=== PATIENT | male | born 1940 | race Caucasian/White ===

== ENCOUNTER 2016-12-24 15:17 | Emergency (ER) | payer MEDICARE, BC ==
[~2016-12-24] VITALS: Ht 188 cm; Wt 105.0 kg
[~2016-12-24 15:17] MED LIST: ARIC10TA PO; ASPI81 PO; CALA240T PO; CALC500T42 PO; CARB25TA PO; CELE200C PO; DOCU1CAP39 PO; HYDR30CR2 TOP; LEXA10TA PO; NEXI40CA PO; OMEGCAP2 PO; REST30CA PO; ROSU40 PO; SUCR1TAB PO; TAB-TAB PO; VIAG100T PO
[2016-12-24 15:21] VITALS: BP 135/63; PULSE 45; RESP 15; TEMP 97.8; O2SAT 97
--- NOTE | 2016-12-24 15:58 | PD ---
HPI Chief Complaint: Pain: Acute or Chronic Time Seen by Provider: 15:55 Travel History International Travel<30 days: No Contact w/Intl Traveler<30days: No Traveled to known affect area: No History of Present Illness HPI 76-year-old male presents to the emergency department for evaluation of bilateral hip pain for 1 month. He states that has been worsening over the past month. The left hip is worse than the right hip. He states that he tried again a playmate with an orthopedist, but has not had one for a couple of weeks. He denies any fall or trauma. The patient denies any fevers. He can walk he states, but the pain is worse with walking and movement. His primary care physician is Dr. Yin. He has a PMH of a total knee replacement, kyphoplasty, back fusion, back stimulator, CVA, carotid enterectomy, pneumonia, sepsis. PFSH Past Medical History Hx Anticoagulant Therapy: No (ASA 81 mg po daily) Arthritis: Yes Asthma: No Autoimmune Disease: No Blood Disorders: No Anxiety: No Depression: Yes Heart Rhythm Problems: No Cancer: No Cardiovascular Problems: Yes (CVA,LEFT LEG NEUROPATHY RESIDUAL ) High Cholesterol: Yes Chemotherapy: No Chest Pain: No Congestive Heart Failure: No COPD: No Cerebrovascular Accident: Yes (R carotid arted stenosis repaired 4 years ago) Coronary Artery Disease: Yes Dementia: Yes Diabetes: No Diminished Hearing: No Endocrine: No GERD: Yes Glaucoma: No Genitourinary: No Headaches: Yes Hepatitis: No Hiatal Hernia: No Immune Disorder: No Kidney Stones: Yes Musculoskeletal: Yes Neurologic: Yes (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) Parkinson's Disease: Yes Psychiatric: No Reproductive: No Respiratory: No Integumentary: Yes (HX OF DERMATITIS SINCE SEP 2010) Migraines: Yes Myocardial Infarction: No Pneumonia: Yes Radiation Therapy: No Renal Failure: No Seizures: No Sickle Cell Disease: No Sleep Apnea: No Thyroid Disease: No Ulcer: No Past Surgical History Abdominal Surgery: Yes (APPENDIX WHEN 12 YEARS OLD) AICD: No Appendectomy: Yes Arteriovenous Shunt: No Body Medical Devices: SPINAL CORD IMPLANT Cardiac Surgery: Yes (RIGHT CAROTID ENDARECTOMY) Cholecystectomy: No Ear Surgery: No Endocrine Surgery: No Eye Surgery: Yes (CATARACTS) Genitourinary Surgery: No Gynecologic Surgery: No Insulin Pump: No Joint Replacement: Yes (BILATERAL KNEES -RIGHT PARTIAL KNEE-L TOTAL) Oral Surgery: No Pacemaker: No Thoracic Surgery: No Other Surgery: Yes (BACK STIMULATOR- SPINAL CORD STIMULATOR PLACED IN LEFT BUTTOCKS, LT LEG FX) Social History Alcohol Use: Yes (SOCIALLY) Tobacco Use: No ("CIGAR ONCE IN A WHILE") Substance Use: No Allergies-Medications (Allergen,Severity, Reaction): Coded Allergies: No Known Allergies (Unverified , 12/24/16) Reported Meds & Prescriptions Reported Meds & Active Scripts Active Lortab (Hydrocodone-Acetaminophen) 5-325 Mg Tab 1 Tab PO Q6H PRN Reported Viagra (Sildenafil Citrate) 100 Mg Tab 100 Mg PO DAILY PRN Zenpep (Pancrelipase) 25,000-85,000-136,000 Units Cap 1 Cap PO TIDPC Topamax (Topiramate) 25 Mg Tab 25 Mg PO BID Temazepam 30 Mg Cap 30 Mg PO HS PRN Nexium (Esomeprazole DR) 40 Mg Capdr 40 Mg PO DAILY Movantik (Naloxegol) 25 Mg Tab 25 Mg PO DAILY Maxzide-25 (Triamterene-Hydrochlorothiazide) 37.5-25 Mg Tab 0.5 Tab PO DAILY Lyrica (Pregabalin) 100 Mg Cap 100 Mg PO BID Linzess (Linaclotide) 145 Mcg Cap 145 Mcg PO DAILY Lisinopril 10 Mg Tab 10 Mg PO DAILY Lexapro (Escitalopram Oxalate) 10 Mg Tab 10 Mg PO DAILY Imitrex (Sumatriptan Succinate) 100 Mg Tab 100 Mg PO ONCE PRN If a satisfactory response has not been obtained at 2 hours, a second dose may be administered Cymbalta DR (Duloxetine HCl) 60 Mg Capdr 60 Mg PO DAILY Celebrex (Celecoxib) 200 Mg Cap 200 Mg PO DAILY Carafate (Sucralfate) 1 Gm Tab 1 Gm PO QID On empty stomach Carbidopa-Levodopa 25-100 Mg Tab 1 Tab PO Q8HR Aspirin 81 Mg Tabdr 81 Mg PO DAILY Aricept (Donepezil) 10 Mg Tab 10 Mg PO HS Review of Systems Except as stated in HPI: all other systems reviewed are Neg Physical Exam Narrative GENERAL: Well-nourished, well-developed elderly male patient, afebrile. SKIN: Focused skin assessment warm/dry. No erythema or warmth over bilateral hips. HEAD: Normocephalic. Atraumatic. EYES: No scleral icterus. No injection or drainage. NECK: Supple, trachea midline. No JVD or lymphadenopathy. CARDIOVASCULAR: Regular rhythm without murmurs, gallops, or rubs. Patient is bradycardic. Patient states this is chronic for him. He denies any associated symptoms. Bilateral pedal pulses are 2+. RESPIRATORY: Breath sounds equal bilaterally. No accessory muscle use. Lungs sounds are clear to auscultation. GASTROINTESTINAL: Abdomen soft, non-tender, nondistended. MUSCULOSKELETAL: No cyanosis, or edema. No tenderness to palpation over bilateral hips. He does have flexion and extension of bilateral hips without difficulty. BACK: Nontender without obvious deformity. No CVA tenderness. Data Data Last Documented VS Vital Signs Date Time Temp Pulse Resp B/P Pulse Ox O2 Delivery O2 Flow Rate FiO2 12/24/16 15:21 97.8 45 15 135/63 97 Orders Hip, Uni(Ap&Lat) Wo Ap Pelvis (12/24/16 ) Hip, Uni(Ap&Lat) W Ap Pelvis (12/24/16 ) Acetamin-Hydrocod 325-5 Mg ([place] 5-325 (12/24/16 17:15) MDM Medical Decision Making Medical Screen Exam Complete: Yes Emergency Medical Condition: Yes Medical Record Reviewed: Yes Interpretation(s) Last Impressions Hip and Pelvis X-Ray 12/24/16 0000 Signed Impressions: Service Date/Time: December 16:14 - CONCLUSION: No fracture seen. Mild bilateral degenerative changes in the hips. Boris Yates MD Hip X-Ray 12/24/16 0000 Signed Impressions: Service Date/Time: December 16:14 - CONCLUSION: No acute bony process Kwadwo Luz MD Differential Diagnosis Osteoarthritis versus fracture versus sprain versus unlikely septic arthritis Narrative Course 76-year-old male presents to the emergency department for evaluation of bilateral hip pain for 1 month. Of infection or septic arthritis on exam. X- ray of the right hip, left hip, pelvis are ordered and pending. Patient will be given Lortab for pain. X-ray right hip and left of the pelvis show mild arthritic change, no acute fracture or bony injury. I discussed the findings with the patient and his . He will be discharged with a short-term prescription for Lortab as instructed follow up with orthopedist. The patient verbalizes agreement and understanding to this. The patient was discharged in stable condition with instructions, including return instructions and follow up instructions. Diagnosis Primary Impression: Bilateral hip pain Referrals: Orthopedist call for appointment Patient Instructions: General Instructions, Hip Pain (ED) Additional Instructions: Take Lortab as instructed as needed for pain. Caution this can make you drowsy so do not drive after taking. Follow-up with orthopedist. Return to the emergency department for any acute worsening of symptoms. Med/Other Pt SpecificInfo: Prescription(s) given Scripts Hydrocodone-Acetaminophen (Lortab)5-325 Mg Tab1 Tab PO Q6H PRN (PAIN) #16 TAB Ref 0 Prov:Mohit Brush MD 12/24/16 Disposition: 01 DISCHARGE HOME Condition: Stable Anabelle Villasenor Dec 24, 2016 15:58
[2016-12-24] MEDS ORDERED: CARA1TAB6 PO (16:15)
[2016-12-24] MEDS ORDERED: CYMB60CA PO (16:15)
[2016-12-24] MEDS ORDERED: LEXA10TA PO (16:15)
[2016-12-24] MEDS ORDERED: CARB25TA9 PO (16:15)
[2016-12-24] MEDS ORDERED: TEMA30CA PO (16:15)
[2016-12-24] MEDS ORDERED: CELE200C PO (16:15)
[2016-12-24] MEDS ORDERED: ASPI1TAB69 PO (16:15)
[2016-12-24] MEDS ORDERED: IMIT100T PO (16:15)
[2016-12-24] MEDS ORDERED: LYRI100C PO (16:15)
[2016-12-24] MEDS ORDERED: LISI10TA3 PO (16:15)
[2016-12-24] MEDS ORDERED: TOPA25TA8 PO (16:15)
[2016-12-24] MEDS ORDERED: ZENP PO (16:15)
[2016-12-24] MEDS ORDERED: VIAG100T PO (16:15)
[2016-12-24] MEDS ORDERED: NEXI40CA PO (16:15)
[2016-12-24] MEDS ORDERED: LINA145C PO (16:15)
[2016-12-24] MEDS ORDERED: ARIC10TA PO (16:15)
[2016-12-24] MEDS ORDERED: NALO1TAB2 PO (16:15)
[2016-12-24] MEDS ORDERED: MAXZTAB PO (16:15)
--- NOTE | 2016-12-24 16:31 | RADRPT ---
EXAM DATE/TIME: 12/24/2016 16:14 [facility] COMPARISON: No previous studies available for comparison. INDICATIONS : Bilateral hip pain, no known trauma MEDICAL HISTORY : None. SURGICAL HISTORY : None. ENCOUNTER: Initial ACUITY: 1 month PAIN SCORE: 8/10 LOCATION: Left hip FINDINGS: The hip appears intact without evidence of fracture, dislocation or bony destruction. Very mild arthr itic changes present. The adjacent pelvis is intact. A stimulator apparatus overlies the ipsilateral iliac wing. There is been previous lumbar fusion surgery and apparent kyphoplasty. CONCLUSION: No acute bony process Kwadwo Luz MD on December 24, 2016 at 16:28 Board Certified Radiologist. This report was verified electronically.
--- NOTE | 2016-12-24 16:38 | RADRPT ---
EXAM DATE/TIME: 12/24/2016 16:14 [facility] COMPARISON: No previous studies available for comparison. INDICATIONS : Bilateral hip pain, no known trauma. MEDICAL HISTORY : None. SURGICAL HISTORY : back stimulator ENCOUNTER: Initial ACUITY: 1 month PAIN SCORE: 8/10 LOCATION: Right hip and pelvis FINDINGS: Osseous structures are mildly osteopenic. The bony pelvic ring is grossly intact. The femoral neck has a symmetric appearance between the right side. There is mild degenerative changes in the hip vin nts without significant femoral neck osteophytes. No fracture seen. The visualized arcuate foramina are symmetric. Transpedicular screws in the lower lumbar spine. The metallic medical office secretary superi mposes upon the left iliac wing. CONCLUSION: No fracture seen. Mild bilateral degenerative changes in the hips. Boris Yates MD on December 24, 2016 at 16:35 Board Certified Radiologist. This report was verified electronically.
[2016-12-24] MEDS ORDERED: HYDR-3533 PO (16:49)
[2016-12-24] MEDS ORDERED: ACETAMINOPHEN/HYDROcodone 325 MG/5 MG TAB PO ONE (17:15)
== END 2016-12-24 17:42 | disposition home or self-care (01) ==
LOC: NEPD 15:17
DX: M25.551 Pain in right hip (principal); M25.552 Pain in left hip
CPT/HCPCS: 73502; 99283

== ENCOUNTER 2017-11-11 14:17 | Emergency (ER) | payer MEDICARE ==
[~2017-11-11 14:17] MED LIST changes: +ASPI1TAB69 PO; -ASPI81 PO; -CALA240T PO; -CALC500T42 PO; +CARA1TAB6 PO; -CARB25TA PO; +CARB25TA9 PO; +CYMB60CA PO; -DOCU1CAP39 PO; +HYDR-3533 PO; -HYDR30CR2 TOP; +IMIT100T PO; +LINA145C PO; +LISI10TA3 PO; +LYRI100C PO; +MAXZTAB PO; +NALO1TAB2 PO; -OMEGCAP2 PO; -REST30CA PO; -ROSU40 PO; -SUCR1TAB PO; -TAB-TAB PO; +TEMA30CA PO; +TOPI25 PO; +ZENP PO
[2017-11-11 14:19] VITALS: BP 144/80; PULSE 69; RESP 18; TEMP 97.2; O2SAT 96
--- NOTE | 2017-11-11 14:51 | RADRPT ---
EXAM DATE/TIME: 11/11/2017 14:41 [facility] COMPARISON: No previous studies available for comparison. INDICATIONS : Chest tightness and cough. MEDICAL HISTORY : CVA. Coronary artery disease. Dementia. parkinsons. SURGICAL HISTORY : Appendectomy. Right carotid endarectomy. Spinal cord stimulator. ENCOUNTER: Initial ACUITY: 1 month PAIN SCORE: 0/10 LOCATION: Bilateral chest FINDINGS: The lungs are symmetrically aerated there is a small opacity in the lower lateral left lung will stop both hemidiaphragms well delineated. The heart is normal in size. Tortuosity descending thoracic a radames. The lesion electrodes project over the mid thoracic region. No evidence of pneumothorax. CONCLUSION: Small infiltrate lower lateral left lung. Boris Yates MD on November 11, 2017 at 14:49 Board Certified Radiologist. This report was verified electronically.
[2017-11-11 15:23] LABS: AUTOMATED NEUTROPHIL # 3.4 TH/MM3 (1.8-7.7); BASOPHIL % 0.5 % (0.0-2.0); EOSINOPHIL # 0.2 TH/MM3 (0-0.4); EOSINOPHIL % 2.6 % (0.0-4.0); HEMATOCRIT 43.8 % (39.0-51.0); HEMOGLOBIN 14.9 GM/DL (13.0-17.0); LYMPH % 45.6 % (9.0-44.0); LYMPHOCYTE # 3.8 TH/MM3 (1.0-4.8); MEAN CELL VOLUME 92.4 FL (80.0-100.0); MEAN CORPUSCULAR HEMOGLOBIN 31.4 PG (27.0-34.0); MEAN CORPUSCULAR HGB CONC 33.9 % (32.0-36.0); MEAN PLATELET VOLUME 8.5 FL (7.0-11.0); MONO % 10.9 % (0.0-8.0); MONOCYTE # 0.9 TH/MM3 (0-0.9); NEUT % 40.4 % (16.0-70.0); PLATELET COUNT 184 TH/MM3 (150-450); RED BLOOD COUNT 4.74 MIL/MM3 (4.50-5.90); RED CELL DISTRIBUTION WIDTH 14.7 % (11.6-17.2); WHITE BLOOD COUNT 8.4 TH/MM3 (4.0-11.0)
[2017-11-11 15:46] LABS: BICARBONATE 25.4 MEQ/L (21.0-32.0); CALCIUM 8.3 MG/DL (8.5-10.1); CREATININE 1.23 MG/DL (0.60-1.30)
[2017-11-11] MEDS ORDERED: SODIUM CHLOR 0.9% 1000 ML INJ 1,000 ML IV SCH (16:48)
--- NOTE | 2017-11-11 16:54 | PD ---
HPI Chief Complaint: Respiratory Symptoms Time Seen by Provider: 16:41 Travel History International Travel<30 days: No Contact w/Intl Traveler<30days: No Traveled to known affect area: No History of Present Illness HPI This is a 77-year-old male with history of peripheral neuropathy, Parkinson's disease, vasculitis who presents for evaluation of cough, generalized weakness. He reports that he has had a cough for one month. He was seen by his primary care physician approximately 4 weeks ago and diagnosed with pneumonia. He was put on azithromycin and Levaquin and initially his overall symptoms improved. He had a persistent cough since then and over the past few days he has felt increased weakness and has had worse cough. Associated dyspnea. He had one fall this morning secondary to generalized weakness. Symptoms are moderate, no aggravating or relieving factors. He denies fevers or chills. He denies abdominal pain, nausea or vomiting, diarrhea or constipation. He has no other complaints at this time. PFSH Past Medical History Hx Anticoagulant Therapy: No (ASA 81 mg po daily) Arthritis: Yes Asthma: No Autoimmune Disease: No Blood Disorders: No Anxiety: No Depression: Yes Heart Rhythm Problems: No Cancer: No Cardiovascular Problems: Yes (CVA,LEFT LEG NEUROPATHY RESIDUAL ) High Cholesterol: Yes Chemotherapy: No Chest Pain: No Congestive Heart Failure: No COPD: No Cerebrovascular Accident: Yes (R carotid arted stenosis repaired 4 years ago) Coronary Artery Disease: Yes Dementia: Yes Diabetes: No Diminished Hearing: No Endocrine: No GERD: Yes Glaucoma: No Genitourinary: No Headaches: Yes Hepatitis: No Hiatal Hernia: No Immune Disorder: No Kidney Stones: Yes Musculoskeletal: Yes Neurologic: Yes (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) Parkinson's Disease: Yes Psychiatric: No Reproductive: No Respiratory: No Integumentary: Yes (HX OF DERMATITIS SINCE SEP 2010) Migraines: Yes Myocardial Infarction: No Pneumonia: Yes Radiation Therapy: No Renal Failure: No Seizures: No Sickle Cell Disease: No Sleep Apnea: No Thyroid Disease: No Ulcer: No Past Surgical History Abdominal Surgery: Yes (APPENDIX WHEN 12 YEARS OLD) AICD: No Appendectomy: Yes Arteriovenous Shunt: No Body Medical Devices: SPINAL CORD IMPLANT Cardiac Surgery: Yes (RIGHT CAROTID ENDARECTOMY) Cholecystectomy: No Ear Surgery: No Endocrine Surgery: No Eye Surgery: Yes (CATARACTS) Genitourinary Surgery: No Gynecologic Surgery: No Insulin Pump: No Joint Replacement: Yes (BILATERAL KNEES -RIGHT PARTIAL KNEE-L TOTAL) Oral Surgery: No Pacemaker: No Thoracic Surgery: No Other Surgery: Yes (BACK STIMULATOR- SPINAL CORD STIMULATOR PLACED IN LEFT BUTTOCKS, LT LEG FX) Social History Alcohol Use: No (SOCIALLY) Tobacco Use: No ("CIGAR ONCE IN A WHILE") Substance Use: No Allergies-Medications (Allergen,Severity, Reaction): Coded Allergies: No Known Allergies (Unverified , 12/24/16) Reported Meds & Prescriptions Reported Meds & Active Scripts Active Doxycycline Hyclate 100 Mg Cap 100 Mg PO BID Lortab (Hydrocodone-Acetaminophen) 5-325 Mg Tab 1 Tab PO Q6H PRN Reported Viagra (Sildenafil Citrate) 100 Mg Tab 100 Mg PO DAILY PRN Zenpep (Pancrelipase) 25,000-85,000-136,000 Units Cap 1 Cap PO TIDPC Topamax (Topiramate) 25 Mg Tab 25 Mg PO BID Temazepam 30 Mg Cap 30 Mg PO HS PRN Nexium (Esomeprazole DR) 40 Mg Capdr 40 Mg PO DAILY Movantik (Naloxegol) 25 Mg Tab 25 Mg PO DAILY Maxzide-25 (Triamterene-Hydrochlorothiazide) 37.5-25 Mg Tab 0.5 Tab PO DAILY Lyrica (Pregabalin) 100 Mg Cap 100 Mg PO BID Linzess (Linaclotide) 145 Mcg Cap 145 Mcg PO DAILY Lisinopril 10 Mg Tab 10 Mg PO DAILY Lexapro (Escitalopram Oxalate) 10 Mg Tab 10 Mg PO DAILY Imitrex (Sumatriptan Succinate) 100 Mg Tab 100 Mg PO ONCE PRN If a satisfactory response has not been obtained at 2 hours, a second dose may be administered Cymbalta DR (Duloxetine HCl) 60 Mg Capdr 60 Mg PO DAILY Celebrex (Celecoxib) 200 Mg Cap 200 Mg PO DAILY Carafate (Sucralfate) 1 Gm Tab 1 Gm PO QID On empty stomach Carbidopa-Levodopa 25-100 Mg Tab 1 Tab PO Q8HR Aspirin 81 Mg Tabdr 81 Mg PO DAILY Aricept (Donepezil) 10 Mg Tab 10 Mg PO HS Review of Systems Except as stated in HPI: all other systems reviewed are Neg Physical Exam Narrative GENERAL: Well-developed well-nourished male in no acute distress SKIN: Warm and dry. HEAD: Atraumatic. Normocephalic. EYES: Pupils equal and round. No scleral icterus. No injection or drainage. ENT: No nasal bleeding or discharge. Mucous membranes pink and moist. NECK: Trachea midline. No JVD. CARDIOVASCULAR: Regular rate and rhythm. No murmur appreciated. RESPIRATORY: No accessory muscle use. Diffuse coarse breath sounds noted. GASTROINTESTINAL: Abdomen soft, non-tender, nondistended. Hepatic and splenic margins not palpable. MUSCULOSKELETAL: No obvious deformities. No clubbing. No cyanosis. No edema. NEUROLOGICAL: Awake and alert. No obvious cranial nerve deficits. Motor grossly within normal limits. Normal speech. PSYCHIATRIC: Appropriate mood and affect; insight and judgment normal. Data Data Last Documented VS Vital Signs Date Time Temp Pulse Resp B/P (MAP) Pulse Ox O2 Delivery O2 Flow Rate FiO2 11/11/17 17:34 Room Air 11/11/17 17:17 65 28 194/85 (121) 100 11/11/17 14:19 97.2 Orders Orders Complete Blood Count With Diff (11/11/17 14:31) Basic Metabolic Panel (Bmp) (11/11/17 14:31) Chest, Pa & Lat (11/11/17 14:31) Blood Culture (11/11/17 14:31) Iv Access Insert/Monitor (11/11/17 14:31) Ecg Monitoring (11/11/17 14:31) Oxygen Administration (11/11/17 14:31) Oximetry (11/11/17 14:31) Electrocardiogram (11/11/17 14:31) Influenzae A/B Antigen (11/11/17 14:31) Sodium Chlor 0.9% 1000 Ml Inj (Ns 1000 M (11/11/17 16:48) Albuterol-Ipratropium Neb (Duoneb Neb) (11/11/17 17:00) Ceftriaxone Inj (Rocephin Inj) (11/11/17 17:00) Azithromycin Inj (Zithromax Inj) (11/11/17 17:00) Blood Glucose (11/11/17 17:45) Ed Discharge Order (11/11/17 18:20) Labs Laboratory Tests Test 11/11/17 13:00 White Blood Count 8.4 TH/MM3 Red Blood Count 4.74 MIL/MM3 Hemoglobin 14.9 GM/DL Hematocrit 43.8 % Mean Corpuscular Volume 92.4 FL Mean Corpuscular Hemoglobin 31.4 PG Mean Corpuscular Hemoglobin Concent 33.9 % Red Cell Distribution Width 14.7 % Platelet Count 184 TH/MM3 Mean Platelet Volume 8.5 FL Neutrophils (%) (Auto) 40.4 % Lymphocytes (%) (Auto) 45.6 % Monocytes (%) (Auto) 10.9 % Eosinophils (%) (Auto) 2.6 % Basophils (%) (Auto) 0.5 % Neutrophils # (Auto) 3.4 TH/MM3 Lymphocytes # (Auto) 3.8 TH/MM3 Monocytes # (Auto) 0.9 TH/MM3 Eosinophils # (Auto) 0.2 TH/MM3 Basophils # (Auto) 0.0 TH/MM3 CBC Comment DIFF FINAL Differential Comment Blood Urea Nitrogen 17 MG/DL Creatinine 1.23 MG/DL Random Glucose 59 MG/DL Calcium Level 8.3 MG/DL Sodium Level 141 MEQ/L Potassium Level 4.3 MEQ/L Chloride Level 108 MEQ/L Carbon Dioxide Level 25.4 MEQ/L Anion Gap 8 MEQ/L Estimat Glomerular Filtration Rate 57 ML/MIN MDM Medical Decision Making Medical Screen Exam Complete: Yes Emergency Medical Condition: Yes Medical Record Reviewed: Yes Differential Diagnosis Pneumonia, influenza, bronchitis, dehydration, electrolyte abnormality Narrative Course Chest x-ray obtained in triage reveals a small left lower lobe infiltrate. He was given IV fluids, azithromycin, Rocephin here. The patient does have coarse breath sounds and he was given DuoNeb treatment. She was mildly hypoglycemic so he was given Gatorade and crackers. Upon recheck he feels significantly improved. His lab work is otherwise reassuring.His lab work is otherwise reassuring. He does report recent outpatient treatment for pneumonia however this was almost 1 month ago as an outpatient. Therefore I offered treatment the patient overnight for observation however he would prefer to try outpatient treatment. This seems reasonable given his normal labs will be given a prescription for doxycycline. Recommended recheck by his primary care physician in 3-4 days and return for any new or worsening symptoms. He does have albuterol nebulizing solution at home that he can use as needed help with his breathing. He is stable for discharge. Diagnosis Primary Impression: CAP (community acquired pneumonia) Additional Instructions: Medication as prescribed. Follow-up with primary care physician in 3-4 days for recheck. Return for any acutely new or worsening symptoms. Med/Other Pt SpecificInfo: Prescription(s) given Scripts Doxycycline Hyclate (Doxycycline Hyclate) 100 Mg Cap 100 MG PO BID for Infection, #20 CAP 0 Refills Prov: Eduard Thomas MD 11/11/17 Disposition: 01 DISCHARGE HOME Condition: Stable Amador Diop Nov 11, 2017 16:54
[2017-11-11] MEDS ORDERED: cefTRIAXone INJ 2,000 MG in SODIUM CHLORIDE 0.9% INJ 100 ML IV ONE (17:00)
[2017-11-11] MEDS ORDERED: AZITHROMYCIN INJ 500 MG in SODIUM CHLOR 0.9% 250 ML INJ 250 ML IV ONE (17:00)
[2017-11-11] MEDS: RESP: ALBUTEROL 2.5 MG/IPRATROPIUM 0.5 MG NEB (SCH) INH ×2 (17:06→17:07)
[2017-11-11 17:17] VITALS: BP 194/85; PULSE 65; RESP 28; O2SAT 100
[2017-11-11] MEDS ORDERED: DOXY100C PO (18:19)
[2017-11-11 19:04] VITALS: BP 169/78; PULSE 65; RESP 15; O2SAT 96
--- NOTE | 2017-11-12 14:41 | EKG ---
Date Performed: 11/11/2017 Time Performed: 14:51:20 PTAGE: 77 years EKG: Sinus rhythm WITH FREQUENT SUPRAVENTRICULAR PREMATURE COMPLEXES MARKED LEFT AXIS DEVIATION PATTERN CONSISTENT WIT H PULMONARY DISEASE MODERATE INTRAVENTRICULAR CONDUCTION DELAY MODERATE VOLTAGE CRITERIA FOR LVH, CON ASSOCIATION EXECUTIVE NORMAL VARIANT NONSPECIFIC ST & T-WAVE ABNORMALITY ABNORMAL ECG PREVIOUS TRACING : 12/14/2015 16.40 Since the prior tracing, there has been no significant daniels DOCTOR: Devi Bird Interpretating Date/Time 11/12/2017 14:37:01
== END 2017-11-11 19:13 | disposition home or self-care (01) ==
LOC: NEPC 14:17
DX: J18.9 Pneumonia, unspecified organism (principal); G20 Parkinson's disease; K21.9 Gastro-esophageal reflux disease without esophagitis; I25.10 Atherosclerotic heart disease of native coronary artery without angina pectoris
CPT/HCPCS: 71046; 80048; 85025; 87040; 87804; 93005; 94640; 94664; 96365; 96367; 99285; J0456; J0696; J7030; J7050

== ENCOUNTER 2017-11-14 12:05 | Inpatient (IN) | payer MEDICARE ==
[~2017-11-14] VITALS: Ht 188 cm; Wt 117.8 kg
[2017-11-14] VITALS (8 sets, daily range): BP systolic 129–160; BP diastolic 69–79; PULSE 69–98; RESP 16–20; TEMP 97.3–97.9; O2SAT 96–99
[~2017-11-14 12:05] MED LIST changes: +DOXY100C PO
--- NOTE | 2017-11-14 12:27 | PD ---
HPI Chief Complaint: Respiratory Symptoms Time Seen by Provider: 12:25 Travel History International Travel<30 days: No Contact w/Intl Traveler<30days: No Traveled to known affect area: No History of Present Illness HPI 77-year-old male with PMH of CVA, HTN, GERD, chronic pancreatitis, recent history of CAP presents to the ED for evaluation of worsening cough, shortness of breath, breathing difficulties. Patient denies fevers, chills, chest pain, palpitations, abdominal pain, nausea, vomiting. He endorses compliance with doxycycline. He states that prior to the doxycycline he completed a course of Levaquin and a Z-Saad. He endorses occasional cigar smoking. He states that he has a follow-up appointment with his primary care provider tomorrow. Last albuterol treatment overnight. PFSH Past Medical History Hx Anticoagulant Therapy: No (ASA 81 mg po daily) Arthritis: Yes Asthma: No Autoimmune Disease: No Blood Disorders: No Anxiety: No Depression: Yes Heart Rhythm Problems: No Cancer: No Cardiovascular Problems: Yes (CVA,LEFT LEG NEUROPATHY RESIDUAL ) High Cholesterol: Yes Chemotherapy: No Chest Pain: No Congestive Heart Failure: No COPD: No Cerebrovascular Accident: Yes (R carotid arted stenosis repaired 4 years ago) Coronary Artery Disease: Yes Dementia: Yes Diabetes: No Diminished Hearing: No Endocrine: No GERD: Yes Glaucoma: No Genitourinary: No Headaches: Yes Hepatitis: No Hiatal Hernia: No Immune Disorder: No Kidney Stones: Yes Musculoskeletal: Yes Neurologic: Yes (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) Parkinson's Disease: Yes Psychiatric: No Reproductive: No Respiratory: No Integumentary: Yes (HX OF DERMATITIS SINCE SEP 2010) Immunizations Current: Yes (FLU SHOT 2005.) Migraines: Yes Myocardial Infarction: No Pneumonia: Yes Radiation Therapy: No Renal Failure: No Seizures: No Sickle Cell Disease: No Sleep Apnea: No Thyroid Disease: No Ulcer: No Past Surgical History Abdominal Surgery: Yes (APPENDIX WHEN 12 YEARS OLD) AICD: No Appendectomy: Yes (12 years old of age ) Arteriovenous Shunt: No Body Medical Devices: SPINAL CORD IMPLANT Cardiac Surgery: Yes (RIGHT CAROTID ENDARECTOMY) Cholecystectomy: No Ear Surgery: No Endocrine Surgery: No Eye Surgery: Yes (CATARACTS) Genitourinary Surgery: No Gynecologic Surgery: No Insulin Pump: No Joint Replacement: Yes (BILATERAL KNEES -RIGHT PARTIAL KNEE-L TOTAL) Oral Surgery: No Pacemaker: No Thoracic Surgery: No Other Surgery: Yes (BACK STIMULATOR- SPINAL CORD STIMULATOR PLACED IN LEFT BUTTOCKS, LT LEG FX) Social History Alcohol Use: Yes (SOCIALLY) Tobacco Use: No ("CIGAR ONCE IN A WHILE") Substance Use: No Allergies-Medications (Allergen,Severity, Reaction): Coded Allergies: No Known Allergies (Unverified Allergy, Unknown, 11/14/17) Reported Meds & Prescriptions Reported Meds & Active Scripts Active Doxycycline Hyclate 100 Mg Cap 100 Mg PO BID Lortab (Hydrocodone-Acetaminophen) 5-325 Mg Tab 1 Tab PO Q6H PRN Reported Viagra (Sildenafil Citrate) 100 Mg Tab 100 Mg PO DAILY PRN Zenpep (Pancrelipase) 25,000-85,000-136,000 Units Cap 1 Cap PO TIDPC Topamax (Topiramate) 25 Mg Tab 25 Mg PO BID Temazepam 30 Mg Cap 30 Mg PO HS PRN Nexium (Esomeprazole DR) 40 Mg Capdr 40 Mg PO DAILY Movantik (Naloxegol) 25 Mg Tab 25 Mg PO DAILY Maxzide-25 (Triamterene-Hydrochlorothiazide) 37.5-25 Mg Tab 0.5 Tab PO DAILY Lyrica (Pregabalin) 100 Mg Cap 100 Mg PO BID Linzess (Linaclotide) 145 Mcg Cap 145 Mcg PO DAILY Lisinopril 10 Mg Tab 10 Mg PO DAILY Lexapro (Escitalopram Oxalate) 10 Mg Tab 10 Mg PO DAILY Imitrex (Sumatriptan Succinate) 100 Mg Tab 100 Mg PO ONCE PRN If a satisfactory response has not been obtained at 2 hours, a second dose may be administered Cymbalta DR (Duloxetine HCl) 60 Mg Capdr 60 Mg PO DAILY Celebrex (Celecoxib) 200 Mg Cap 200 Mg PO DAILY Carafate (Sucralfate) 1 Gm Tab 1 Gm PO QID On empty stomach Carbidopa-Levodopa 25-100 Mg Tab 1 Tab PO Q8HR Aspirin 81 Mg Tabdr 81 Mg PO DAILY Aricept (Donepezil) 10 Mg Tab 10 Mg PO HS Review of Systems Except as stated in HPI: all other systems reviewed are Neg Physical Exam Narrative GENERAL: Well-nourished, well-developed obese white male in no acute distress. SKIN: Focused skin assessment warm/dry. HEAD: Normocephalic. EYES: No scleral icterus. No injection or drainage. NECK: Supple, trachea midline. No JVD or lymphadenopathy. CARDIOVASCULAR: Regular rate and rhythm without murmurs, gallops, or rubs. RESPIRATORY: Breath sounds crackles and rales bilaterally. Wet sounding cough. No accessory muscle use. GASTROINTESTINAL: Abdomen soft, non-tender, nondistended. MUSCULOSKELETAL: No cyanosis, or edema. BACK: Nontender without obvious deformity. No CVA tenderness. Data Data Last Documented VS Vital Signs Date Time Temp Pulse Resp B/P (MAP) Pulse Ox O2 Delivery O2 Flow Rate FiO2 11/14/17 15:18 69 18 160/69 (99) 99 Nasal Cannula 2.00 11/14/17 12:06 97.9 Orders Orders Electrocardiogram (11/14/17 12:18) Ckmb (Isoenzyme) Profile (11/14/17 12:18) Complete Blood Count With Diff (11/14/17 12:18) Comprehensive Metabolic Panel (11/14/17 12:18) Magnesium (Mg) (11/14/17 12:18) Prothrombin Time / Inr (Pt) (11/14/17 12:18) Act Partial Throm Time (Ptt) (11/14/17 12:18) Troponin I (11/14/17 12:18) Ecg Monitoring (11/14/17 12:18) Iv Access Insert/Monitor (11/14/17 12:18) Oximetry (11/14/17 12:18) Oxygen Administration (11/14/17 12:18) Sodium Chloride 0.9% Flush (Ns Flush) (11/14/17 12:30) Ct Pulmonary Angiogram (11/14/17 12:23) Methylprednisolone So Succ Inj (Solumedr (11/14/17 12:30) Albuterol-Ipratropium Neb (Duoneb Neb) (11/14/17 12:30) CKMB (11/14/17 12:33) CKMB% (11/14/17 12:33) Iohexol 350 Inj (Omnipaque 350 Inj) (11/14/17 14:20) Blood Culture (11/14/17 14:53) Vancomycin Inj (Vancomycin Inj) (11/14/17 15:00) Piperacil-Tazo 4.5 Gm Premix (Zosyn 4.5 (11/14/17 15:00) Admit Order (Ed Use Only) (11/14/17 15:34) Labs Laboratory Tests Test 11/14/17 12:33 White Blood Count 6.7 TH/MM3 Red Blood Count 4.58 MIL/MM3 Hemoglobin 14.3 GM/DL Hematocrit 42.1 % Mean Corpuscular Volume 91.9 FL Mean Corpuscular Hemoglobin 31.2 PG Mean Corpuscular Hemoglobin Concent 34.0 % Red Cell Distribution Width 15.0 % Platelet Count 177 TH/MM3 Mean Platelet Volume 8.5 FL Neutrophils (%) (Auto) 63.8 % Lymphocytes (%) (Auto) 24.6 % Monocytes (%) (Auto) 8.0 % Eosinophils (%) (Auto) 2.8 % Basophils (%) (Auto) 0.8 % Neutrophils # (Auto) 4.3 TH/MM3 Lymphocytes # (Auto) 1.6 TH/MM3 Monocytes # (Auto) 0.5 TH/MM3 Eosinophils # (Auto) 0.2 TH/MM3 Basophils # (Auto) 0.1 TH/MM3 CBC Comment DIFF FINAL Differential Comment Prothrombin Time 11.4 SEC Prothromb Time International Ratio 1.1 RATIO Activated Partial Thromboplast Time 28.0 SEC Blood Urea Nitrogen 17 MG/DL Creatinine 1.21 MG/DL Random Glucose 122 MG/DL Total Protein 7.0 GM/DL Albumin 3.9 GM/DL Calcium Level 8.1 MG/DL Magnesium Level 1.7 MG/DL Alkaline Phosphatase 96 U/L Aspartate Amino Transf (AST/SGOT) 19 U/L Alanine Aminotransferase (ALT/SGPT) 9 U/L Total Bilirubin 0.5 MG/DL Sodium Level 140 MEQ/L Potassium Level 4.4 MEQ/L Chloride Level 110 MEQ/L Carbon Dioxide Level 22.9 MEQ/L Anion Gap 7 MEQ/L Estimat Glomerular Filtration Rate 58 ML/MIN Total Creatine Kinase 149 U/L Creatine Kinase MB 1.6 NG/ML Troponin I LESS THAN 0.02 NG/ML MDM Medical Decision Making Medical Screen Exam Complete: Yes Emergency Medical Condition: Yes Differential Diagnosis failed outpatient treatment versus PNA versus CAP versus other Narrative Course 77-year-old male with recent history of CAP presents to the ED for evaluation of worsening cough, shortness of breath, breathing difficulties. He states that he completed a course of Levaquin, a Z-Pack and is currently on doxycycline. He endorses occasional cigar smoking. Last albuterol treatment overnight. Patient afebrile, pulse 98, respiratory rate 16, 96% O2 on room air on presentation. On exam the patient is ill-appearing. Diffuse crackles and rales in bilateral lungs. Exam otherwise unremarkable. IV was established. Patient was administered IV Solumedrol, Duo nebs 3. 11/14/17 12:33 Total Protein 7.0, Albumin 3.9, Calcium Level 8.1 L, Magnesium Level 1.7, Alkaline Phosphatase 96, Aspartate Amino Transf (AST/SGOT) 19, Alanine Aminotransferase (ALT/SGPT) 9 L, Total Bilirubin 0.5 CT pulmonary angiogram: No evidence of PE. Patchy parenchymal infiltrates in both lung bases, left greater than right. Compensated cardiomegaly allergy read. Patient has failed outpatient treatment for community-acquired pneumonia. Blood cultures were drawn. Patient was administered IV vancomycin and Zosyn. I discussed the results of the workup with the patient and his . They are agreeable to admission. I spoke with who agrees to accept the patient to the medicine service. Please see medicine notes for disposition. Minda Rios Nov 14, 2017 12:27
[2017-11-14] MEDS ORDERED: methylPREDNISolone SOD SUCC 125 MG/2 ML VIAL IV PUSH ONE (12:30)
[2017-11-14] MEDS ORDERED: SODIUM CHLORIDE 0.9% FLUSH 10 ML FLUSH IVF PRN (12:30)
[2017-11-14] MEDS: RESP: ALBUTEROL 2.5 MG/IPRATROPIUM 0.5 MG NEB (SCH) INH (12:39)
[2017-11-14 12:47] LABS: AUTOMATED NEUTROPHIL # 4.3 TH/MM3 (1.8-7.7); BASOPHIL # 0.1 TH/MM3 (0-0.2); BASOPHIL % 0.8 % (0.0-2.0); EOSINOPHIL # 0.2 TH/MM3 (0-0.4); EOSINOPHIL % 2.8 % (0.0-4.0); HEMATOCRIT 42.1 % (39.0-51.0); HEMOGLOBIN 14.3 GM/DL (13.0-17.0); LYMPH % 24.6 % (9.0-44.0); LYMPHOCYTE # 1.6 TH/MM3 (1.0-4.8); MEAN CELL VOLUME 91.9 FL (80.0-100.0); MEAN CORPUSCULAR HEMOGLOBIN 31.2 PG (27.0-34.0); MEAN PLATELET VOLUME 8.5 FL (7.0-11.0); MONOCYTE # 0.5 TH/MM3 (0-0.9); NEUT % 63.8 % (16.0-70.0); PLATELET COUNT 177 TH/MM3 (150-450); RED BLOOD COUNT 4.58 MIL/MM3 (4.50-5.90); WHITE BLOOD COUNT 6.7 TH/MM3 (4.0-11.0)
[2017-11-14 12:57] LABS: INTERNATIONAL NORMALIZED RATIO 1.1 RATIO; PROTHROMBIN TIME - PATIENT 11.4 SEC (9.8-11.6)
[2017-11-14 13:09] LABS: ALBUMIN 3.9 GM/DL (3.4-5.0); AST (GOT) 19 U/L (15-37); BICARBONATE 22.9 MEQ/L (21.0-32.0); BLOOD UREA NITROGEN 17 MG/DL (7-18); CALCIUM 8.1 MG/DL (8.5-10.1); CHLORIDE 110 MEQ/L (98-107); CREATININE 1.21 MG/DL (0.60-1.30); GLOMERULAR FILTRATION RATE 58 ML/MIN (>89); GLUCOSE,RANDOM 122 MG/DL (74-106); MAGNESIUM 1.7 MG/DL (1.5-2.5); SODIUM (NA) 140 MEQ/L (136-145)
[2017-11-14 13:13] LABS: ALKALINE PHOSPHATASE 96 U/L (45-117); ALT (GPT) 9 U/L (12-78); TOTAL BILIRUBIN ADULT 0.5 MG/DL (0.2-1.0); TROPONIN I LESS THAN 0.02 NG/ML (0.02-0.05)
[2017-11-14] MEDS ORDERED: IOHEXOL 350 MG/ML 10 ML VIAL (for RAD DIAG) IVCONTRAST ONE (14:20)
--- NOTE | 2017-11-14 14:50 | RADRPT ---
EXAM DATE/TIME: 11/14/2017 14:21 [facility] COMPARISON: No previous studies available for comparison. INDICATIONS : Shortness of breath. IV CONTRAST: 70 cc Omnipaque 350 (iohexol) IV RADIATION DOSE: 10.83 CTDIvol (mGy) MEDICAL HISTORY : Stroke. Parkinsons. Gastroesophageal reflux disease. SURGICAL HISTORY : Carotid endarterectomy. Appendectomy. ENCOUNTER: Initial ACUITY: 1 day PAIN SCALE: 0/10 LOCATION: Bilateral chest TECHNIQUE: Volumetric scanning of the chest was performed using a pulmonary embolism protocol MIP images were re constructed. Using automated exposure control and adjustment of the mA and/or kV according to patien t size, radiation dose was kept as low as reasonably achievable to obtain optimal diagnostic quality images. DICOM format image data is available electronically for review and comparison. Follow-up recommendations for detected pulmonary nodules are based at a minimum on nodule size and pa tient risk factors according to Fleischner Society Guidelines. FINDINGS: PULMONARY ARTERIES: No filling defects are seen in the pulmonary arteries through the segmental level. LUNGS: There are patchy focal infiltrates in both lung bases, left greater than right. PLEURAE: There is no pleural thickening or pleural effusion. MEDIASTINUM: There is good visualization of the great vessels of the middle mediastinum. No evidence of mediastin al or hilar adenopathy/mass. The heart size is enlarged. MUSCULOSKELETAL: Within normal limits for patient age. MISCELLANEOUS: The visualized upper abdominal organs demonstrate no acute abnormality. CONCLUSION: 1. No evidence of pulmonary embolism. 2. Patchy parenchymal infiltrates in both lung bases, left greater than right. 3. Compensated cardiomegaly. Maksim Scanlon MD on November 14, 2017 at 14:47 Board Certified Radiologist. This report was verified electronically.
[2017-11-14] MEDS ORDERED: LEVOFLOXACIN 750 MG PREMIX INJ 150 ML IV ONE (15:00)
[2017-11-14] MEDS ORDERED: PIPERACIL-TAZO 4.5 GM PREMIX 100 ML IV ONE (15:00)
[2017-11-14] MEDS ORDERED: VANCOMYCIN INJ 1,000 MG in SODIUM CHLOR 0.9% 250 ML INJ 250 ML IV ONE (15:00)
[2017-11-14] MEDS ORDERED: SILDENAFIL 100 MG PO PRN (16:00)
[2017-11-14] MEDS ORDERED: ACETAMINOPHEN/HYDROcodone 325 MG/5 MG TAB PO PRN (16:00)
[2017-11-14] MEDS ORDERED: SUMAtriptan SUCCINATE 50 MG TAB PO PRN ×2 (16:00→20:15)
[2017-11-14] MEDS ORDERED: NALOXONE HCL 0.4 MG/ML AMP IV PUSH PRN (16:15)
[2017-11-14] MEDS ORDERED: SENNOSIDES 8.6 MG TAB PO PRN (16:15)
[2017-11-14] MEDS ORDERED: SODIUM CHLORIDE 0.9% FLUSH 10 ML FLUSH IV FLUSH PRN (16:15)
[2017-11-14] MEDS ORDERED: ACETAMINOPHEN 325 MG TAB PO PRN (16:15)
[2017-11-14] MEDS ORDERED: VANCOMYCIN INJ 1,000 MG in SODIUM CHLOR 0.9% 250 ML INJ 250 ML IV SCH (16:15)
[2017-11-14] MEDS ORDERED: LACTULOSE SYRUP 20 GM/30 ML CUP PO PRN (16:15)
[2017-11-14] MEDS ORDERED: Vancomycin Consult Pharmacy 1 EA OTHER SCH (16:15)
[2017-11-14] MEDS ORDERED: ONDANSETRON HCL 4 MG/2 ML VIAL IVP PRN (16:15)
[2017-11-14] MEDS ORDERED: BISACODYL 10 MG SUPP RECTAL PRN (16:15)
[2017-11-14] MEDS ORDERED: MAGNESIUM HYDROXIDE SUSP 30 ML CUP PO PRN (16:15)
--- NOTE | 2017-11-14 16:36 | HHI.HP ---
HPI Service [facility] Primary Care Physician Non-Staff Admission Diagnosis failed outpatient treatment CAP Diagnoses: Chief Complaint: pneumonia worsening failed treatment as OP Travel History International Travel<30 Days: No Contact w/Intl Traveler <30 Da: No Traveled to Known Affected Are: No History of Present Illness 75 yrs old man with a PMHx of Monoclonal gammopathy, DGD, Hyperlipidemia, CVA, chronic pancreatitis. GERD, came to the ED for further evaluation. Patient with recent history of CAP presents for further evaluation of worsening cough, shortness of breath, breathing difficulties. Patient denies fevers, chills, chest pain, palpitations, abdominal pain, nausea, vomiting. He endorses compliance with doxycycline. He states that prior to the doxycycline he completed a course of Levaquin and a Z-Saad. He endorses occasional cigar smoking. He states that he has a follow-up appointment with his primary care provider tomorrow. Last albuterol treatment overnight. The patient is also on chronic use of prednisone due to vasculitis he follows with rheumatology as outpatient. Review of Systems Except as stated in HPI: all other systems reviewed are Neg Past Family Social History Past Medical History Depression. Gastroesophageal reflux disease. Memory deficit. Migraine headaches. Hyperlipidemia. Erectile dysfunction. Allergic rhinitis. History of cerebrovascular accident in 2009 with very, very minimal left lower extremity weakness. History of hypertension history of chronic rash. History of osteomyelitis in 1965 requiring left lower leg surgery. Chronic LBP Past Surgical History Lateral knee surgery Back fusion surgery Carotid artery surgery Nerve stimulator Reported Medications Reported Meds & Active Scripts Active Doxycycline Hyclate 100 Mg Cap 100 Mg PO BID Lortab (Hydrocodone-Acetaminophen) 5-325 Mg Tab 1 Tab PO Q6H PRN Reported Viagra (Sildenafil Citrate) 100 Mg Tab 100 Mg PO DAILY PRN Zenpep (Pancrelipase) 25,000-85,000-136,000 Units Cap 1 Cap PO TIDPC Topamax (Topiramate) 25 Mg Tab 25 Mg PO BID Temazepam 30 Mg Cap 30 Mg PO HS PRN Nexium (Esomeprazole DR) 40 Mg Capdr 40 Mg PO DAILY Movantik (Naloxegol) 25 Mg Tab 25 Mg PO DAILY Maxzide-25 (Triamterene-Hydrochlorothiazide) 37.5-25 Mg Tab 0.5 Tab PO DAILY Lyrica (Pregabalin) 100 Mg Cap 100 Mg PO BID Linzess (Linaclotide) 145 Mcg Cap 145 Mcg PO DAILY Lisinopril 10 Mg Tab 10 Mg PO DAILY Lexapro (Escitalopram Oxalate) 10 Mg Tab 10 Mg PO DAILY Imitrex (Sumatriptan Succinate) 100 Mg Tab 100 Mg PO ONCE PRN If a satisfactory response has not been obtained at 2 hours, a second dose may be administered Cymbalta DR (Duloxetine HCl) 60 Mg Capdr 60 Mg PO DAILY Celebrex (Celecoxib) 200 Mg Cap 200 Mg PO DAILY Carafate (Sucralfate) 1 Gm Tab 1 Gm PO QID On empty stomach Carbidopa-Levodopa 25-100 Mg Tab 1 Tab PO Q8HR Aspirin 81 Mg Tabdr 81 Mg PO DAILY Aricept (Donepezil) 10 Mg Tab 10 Mg PO HS Allergies: Coded Allergies: No Known Allergies (Verified Allergy, Unknown, 11/14/17) Family History Brother aids drug use Fatherat 89 ya of COPD smoker Mother at 92 ya of [place] Social History Tobacco cigars No illicit drug use or alcohol use Physical Exam Vital Signs Vital Signs Date Time Temp Pulse Resp B/P (MAP) Pulse Ox O2 Delivery O2 Flow Rate FiO2 11/14/17 15:18 69 18 160/69 (99) 99 Nasal Cannula 2.00 11/14/17 12:44 97 Nasal Cannula 2.00 11/14/17 12:31 71 18 97 Nasal Cannula 2.00 11/14/17 12:30 97 Nasal Cannula 2.00 11/14/17 12:29 97 Nasal Cannula 2.00 11/14/17 12:06 97.9 98 16 132/75 (94) 96 Physical Exam GENERAL: This is a very pleasant male, well-nourished, well-developed patient, in some distress due to shortness of breath. SKIN: Old healing wound with scab on posterior right lower leg. Cool and dry. HEAD: Atraumatic. Normocephalic. No temporal or scalp tenderness. EYES: Pupils equal round and reactive. Extraocular motions intact. No scleral icterus. No injection or drainage. ENT: Nose without bleeding, purulent drainage or septal hematoma. Throat without erythema, tonsillar hypertrophy or exudate. Uvula midline. Airway patent. NECK: Trachea midline. No JVD or lymphadenopathy. Supple, nontender, no meningeal signs. CARDIOVASCULAR: Regular rate and rhythm without murmurs, gallops, or rubs. RESPIRATORY: Shortness of breath, on nasal cannula. Wheezing scattered decreased breath sound, bronchial sounds. No accessory muscle use. GASTROINTESTINAL: Abdomen soft, non-tender, nondistended. No hepato-splenomegaly , or palpable masses. No guarding. MUSCULOSKELETAL: Extremities without clubbing, cyanosis, or edema. No joint tenderness, effusion, or edema noted. No calf tenderness. Negative Homans sign bilaterally. NEUROLOGICAL: Awake and alert. Cranial nerves II through XII intact. Motor and sensory grossly within normal limits. Five out of 5 muscle strength in all muscle groups. Normal speech. Laboratory Laboratory Tests Test 11/14/17 12:33 White Blood Count 6.7 Red Blood Count 4.58 Hemoglobin 14.3 Hematocrit 42.1 Mean Corpuscular Volume 91.9 Mean Corpuscular Hemoglobin 31.2 Mean Corpuscular Hemoglobin Concent 34.0 Red Cell Distribution Width 15.0 Platelet Count 177 Mean Platelet Volume 8.5 Neutrophils (%) (Auto) 63.8 Lymphocytes (%) (Auto) 24.6 Monocytes (%) (Auto) 8.0 Eosinophils (%) (Auto) 2.8 Basophils (%) (Auto) 0.8 Neutrophils # (Auto) 4.3 Lymphocytes # (Auto) 1.6 Monocytes # (Auto) 0.5 Eosinophils # (Auto) 0.2 Basophils # (Auto) 0.1 CBC Comment DIFF FINAL Differential Comment Prothrombin Time 11.4 Prothromb Time International Ratio 1.1 Activated Partial Thromboplast Time 28.0 Blood Urea Nitrogen 17 Creatinine 1.21 Random Glucose 122 Total Protein 7.0 Albumin 3.9 Calcium Level 8.1 Magnesium Level 1.7 Alkaline Phosphatase 96 Aspartate Amino Transf (AST/SGOT) 19 Alanine Aminotransferase (ALT/SGPT) 9 Total Bilirubin 0.5 Sodium Level 140 Potassium Level 4.4 Chloride Level 110 Carbon Dioxide Level 22.9 Anion Gap 7 Estimat Glomerular Filtration Rate 58 Total Creatine Kinase 149 Creatine Kinase MB 1.6 Troponin I LESS THAN 0.02 Date/Time Source Procedure Growth Status 11/14/17 15:00 Blood Line Aerobic Blood Culture Pending Received 11/14/17 15:00 Blood Line Anaerobic Blood Culture Pending Received Result Diagram: 11/14/17 1233 11/14/17 1233 Caprini VTE Risk Assessment Caprini VTE Risk Assessment: Mod/High Risk (score >= 2) Caprini Risk Assessment Model Point Value = 1 Point Value = 2 Point Value = 3 Point Value = 5 Age 41-60 Minor surgery BMI > 25 kg/m2 Swollen legs Varicose veins or History of unexplained or recurrent spontaneous Oral contraceptives or hormone replacement Sepsis (< 1 month) Serious lung disease, including pneumonia (< 1 month) Abnormal pulmonary function Acute myocardial infarction Congestive heart failure (< 1 month) History of inflammatory bowel disease Medical patient at bed rest Age 61-74 Arthroscopic surgery Major open surgery (> 45 min) Laparoscopic surgery (> 45 min) Malignancy Confined to bed (> 72 hours) Immobilizing plaster cast Central venous access Age >= 75 History of VTE Family history of VTE Factor V Leiden Prothrombin [id number] Lupus anticoagulant Anticardiolipin antibodies Elevated serum homocysteine Heparin-induced thrombocytopenia Other congenital or acquired thrombophilia Stroke (< 1 month) Elective arthroplasty Hip, pelvis, or leg fracture Acute spinal cord injury (< 1 month) Prophylaxis Regimen Total Risk Factor Score Risk Level Prophylaxis Regimen 0-1 Low Early ambulation 2 Moderate Order ONE of the following: *Sequential Compression Device (SCD) *Heparin 5000 units SQ BID 3-4 Higher Order ONE of the following medications: *Heparin 5000 units SQ TID *Enoxaparin/Lovenox 40 mg SQ daily (WT < 150 kg, CrCl > 30 mL/min) *Enoxaparin/Lovenox 30 mg SQ daily (WT < 150 kg, CrCl > 10-29 mL/min) *Enoxaparin/Lovenox 30 mg SQ BID (WT < 150 kg, CrCl > 30 mL/min) AND/OR *Sequential Compression Device (SCD) 5 or more Highest Order ONE of the following medications: *Heparin 5000 units SQ TID (Preferred with Epidurals) *Enoxaparin/Lovenox 40 mg SQ daily (WT < 150 kg, CrCl > 30 mL/min) *Enoxaparin/Lovenox 30 mg SQ daily (WT < 150 kg, CrCl > 10-29 mL/min) *Enoxaparin/Lovenox 30 mg SQ BID (WT < 150 kg, CrCl > 30 mL/min) AND *Sequential Compression Device (SCD) Assessment and Plan Assessment and Plan Bilateral PNA outpatient failed treatment, prior recent hospitalization Immunocompromised patient is on chronic prednisone use due to vasculitis, 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 Patchy parenchymal infiltrates in both lung bases, left greater than right. Compensated cardiomegaly allergy read. Start zosyn and vanco IV Blood cultures obtained in the ED, monitor and deescalate abx Duonebs scheduled and as need O2 supplement keep O2 sat > 94% Solumedrol taper steroids as tolerated E Z-Saad, incentive spirometry Consult infectious disease for evaluation as failed outpatient treatment and also patient is immunocompromised Other chronic medical conditions at baseline: Resume home medications as appropriate GI prophylaxis: PPI DVT prophylaxis: lovenox/Teds/SCDs Discussed Condition With pt, nurse, ED physician Physician Certification 2 Midnight Certification Type: Admission for Inpatient Services Order for Inpatient Services The services are ordered in accordance with Medicare regulations or non- Medicare payer requirements, as applicable. In the case of services not specified as inpatient-only, they are appropriately provided as inpatient services in accordance with the 2-midnight benchmark. Estimated LOS (days): 3 days is the estimated time the patient will need to remain in the hospital, assuming treatment plan goals are met and no additional complications. Post-Hospital Plan: Ana Lilia Brewster MD Nov 14, 2017 16:36
[2017-11-14] MEDS ORDERED: VANCOMYCIN INJ 750 MG in SODIUM CHLOR 0.9% 250 ML INJ 250 ML IV ONE (18:00)
[2017-11-14] MEDS: SODIUM CHLOR 0.9% 1000 ML INJ 1,000 ML IV SCH (18:11)
[2017-11-14] MEDS: LIPASE/PROTEASE/AMYLASE (24,000/76,000/120,000) CAP PO SCH (18:11)
[2017-11-14] MEDS: SUCRALFATE 1 GM TAB PO SCH ×2 (18:12→21:49)
[2017-11-14] MEDS: ENOXAPARIN SODIUM 40 MG/0.4 ML SYRINGE SQ SCH (18:12)
[2017-11-14] MEDS: methylPREDNISolone SOD SUCC 40 MG/1 ML VIAL IV PUSH SCH ×2 (18:12→23:27)
[2017-11-14] MEDS: RESP: ALBUTEROL 2.5 MG/IPRATROPIUM 0.5 MG NEB (SCH) NEB (19:51)
[2017-11-14] MEDS: SODIUM CHLORIDE 0.9% FLUSH 10 ML FLUSH IV FLUSH SCH (21:00)
[2017-11-14] MEDS: PREGABALIN 100 MG CAP PO SCH (21:49)
[2017-11-14] MEDS: TOPIRAMATE 25 MG TAB PO SCH (21:49)
[2017-11-14] MEDS: CARBIDOPA/LEVODOPA 25 MG/100 MG TAB PO SCH (21:49)
[2017-11-14] MEDS: DOCUSATE SODIUM 50 MG/SENNA 8.6 MG TAB PO SCH (21:49)
[2017-11-14] MEDS: TEMAZEPAM 15 MG CAP PO PRN (21:50)
[2017-11-14] MEDS: PIPERACIL-TAZO 4.5 GM PREMIX 100 ML IV SCH (21:50)
[2017-11-14] MEDS: DONEPEZIL HCL 5 MG TAB PO SCH (21:50)
[2017-11-15] VITALS (13 sets, daily range): BP systolic 118–145; BP diastolic 60–86; PULSE 68–113; RESP 18–19; TEMP 97.4–97.8; O2SAT 93–96
[2017-11-15] MEDS: PIPERACIL-TAZO 4.5 GM PREMIX 100 ML IV SCH ×4 (03:00→23:00)
[2017-11-15] MEDS: methylPREDNISolone SOD SUCC 40 MG/1 ML VIAL IV PUSH SCH ×4 (05:51→23:01)
[2017-11-15] MEDS: CARBIDOPA/LEVODOPA 25 MG/100 MG TAB PO SCH ×3 (05:51→23:00)
[2017-11-15] MEDS: SODIUM CHLOR 0.9% 1000 ML INJ 1,000 ML IV SCH ×3 (05:51→23:00)
[2017-11-15 06:57] LABS: AUTOMATED NEUTROPHIL # 6.1 TH/MM3 (1.8-7.7); HEMATOCRIT 39.8 % (39.0-51.0); HEMOGLOBIN 13.5 GM/DL (13.0-17.0); LYMPH % 10.2 % (9.0-44.0); LYMPHOCYTE # 0.7 TH/MM3 (1.0-4.8); MEAN CELL VOLUME 92.2 FL (80.0-100.0); MEAN CORPUSCULAR HEMOGLOBIN 31.3 PG (27.0-34.0); MONO % 2.5 % (0.0-8.0); MONOCYTE # 0.2 TH/MM3 (0-0.9); NEUT % 87.3 % (16.0-70.0); PLATELET COUNT 154 TH/MM3 (150-450); RED BLOOD COUNT 4.31 MIL/MM3 (4.50-5.90); RED CELL DISTRIBUTION WIDTH 14.9 % (11.6-17.2)
[2017-11-15 07:25] LABS: BICARBONATE 23.8 MEQ/L (21.0-32.0); CALCIUM 8.7 MG/DL (8.5-10.1); CREATININE 1.2 MG/DL (0.60-1.30)
[2017-11-15] MEDS: RESP: ALBUTEROL 2.5 MG/IPRATROPIUM 0.5 MG NEB (SCH) NEB ×4 (07:56→20:34)
[2017-11-15] MEDS: SUCRALFATE 1 GM TAB PO SCH ×4 (08:32→20:18)
[2017-11-15] MEDS: PREGABALIN 100 MG CAP PO SCH ×2 (08:33→17:10)
[2017-11-15] MEDS: DULoxetine HCl DR 60 MG CAP PO SCH (08:34)
[2017-11-15] MEDS: LINZESS 145 MCG PO SCH (08:34)
[2017-11-15] MEDS: DOCUSATE SODIUM 50 MG/SENNA 8.6 MG TAB PO SCH ×2 (08:35→20:18)
[2017-11-15] MEDS: LIPASE/PROTEASE/AMYLASE (24,000/76,000/120,000) CAP PO SCH ×3 (08:35→17:11)
[2017-11-15] MEDS: TRIAMTERENE/HCTZ 37.5 MG/25 MG TAB PO SCH (08:35)
[2017-11-15] MEDS: ESCITALOPRAM OXALATE 10 MG TAB PO SCH (08:36)
[2017-11-15] MEDS: TOPIRAMATE 25 MG TAB PO SCH ×2 (08:36→20:18)
[2017-11-15] MEDS: ASPIRIN EC 81 MG TABEC PO SCH (08:36)
[2017-11-15] MEDS: PANTOPRAZOLE SOD 40 MG DELAYED RELEASE TAB PO SCH (08:37)
[2017-11-15] MEDS: LISINOPRIL 10 MG TAB PO SCH (08:37)
[2017-11-15] MEDS: CELECOXIB 200 MG CAP PO SCH (08:37)
[2017-11-15] MEDS: SODIUM CHLORIDE 0.9% FLUSH 10 ML FLUSH IV FLUSH SCH ×2 (08:38→20:19)
[2017-11-15] MEDS ORDERED: LINZESS 145 MCG PO SCH (09:00)
[2017-11-15] MEDS ORDERED: MOVANTIK 25 MG PO SCH (09:00)
[2017-11-15] MEDS ORDERED: LYRI200C PO (13:38)
--- NOTE | 2017-11-15 15:19 | EKG ---
Date Performed: 11/14/2017 Time Performed: 12:37:15 PTAGE: 77 years EKG: POSSIBLE ATRIAL PACING, BUT CANNOT DEFINE PACER SPIKES LEFT ANTERIOR FASCICULAR BLOCK Since the prior tracing, there has been no significant change, but Clinical correlation is recommended ABN ORMAL ECG PREVIOUS TRACING : 11/11/2017 14.51 DOCTOR: Anshul Selby Interpretating Date/Time 11/15/2017 15:18:48
--- NOTE | 2017-11-15 15:43 | MB ---
cc: Mack Hodgson MD DATE OF CONSULT: 11/15/2017 REQUESTING PHYSICIAN: Ana Lilia Inman MD REASON: Failed outpatient treatment, bilateral pneumonia, immunocompromised patient. HISTORY OF PRESENT ILLNESS: This is a 77-year-old white male who presented to the emergency department with respiratory symptoms. The patient does have cough and sputum production and shortness of breath for about a month. He was treated with 3 courses of antibiotics including Levaquin, doxycycline, and Z-DASHA. He did not improve and presented to emergency department and was evaluated. The patient's temperature was normal in the emergency department and his white blood cell count was also normal. A CT angiogram was performed and it showed no evidence of pulmonary embolism. Patchy parenchymal infiltrates in both lung bases were noted, left greater than right. Patient states that he has been coughing up leon sputum. The patient has been on prednisone for vasculitis. He takes the prednisone daily. The patient and his report that they traveled from [place] about a month ago and when they got on the airplane to return to home from [place], that virtually everyone on the airplane was coughing. The patient had no problems with fever or chills, however. Blood culture has been taken and has no growth in 1 day. Sputum culture is pending. The sputum Gram stain showed a few white cells. Patient was seen in the emergency department on 11/11 prior to this admission and blood cultures were negative. His white blood cell count was normal also at that time and a chest x-ray showed small infiltrate in the lower lateral left lung. The patient states that he has had difficulty lying flat since he started having the problem and he has been coughing all day since the coughing began. The patient says that he gets migraine headaches. He also gets night sweats as well. PAST MEDICAL HISTORY: Depression, hyperlipidemia, allergic rhinitis, hypertension, gastroesophageal reflux disease, migraines, vasculitis, cerebrovascular accident in 2009 with minimal left lower extremity weakness, chronic low back pain, spinal stimulator which was replaced last year by fusion surgery, carotid artery surgery, left lower leg surgery. ALLERGIES: NO KNOWN DRUG ALLERGIES. MEDICATIONS: Vancomycin, piperacillin/tazobactam, aspirin, Celebrex, Cymbalta, Lexapro, Prinivil, Maxzide, Protonix, Sinemet, Aricept, Lyrica, Topamax, Creon, Carafate, Lovenox, methylprednisolone. SOCIAL HISTORY: The patient is . He smokes occasional cigar. Occasional social alcohol. No substance abuse. FAMILY HISTORY: Noncontributory. REVIEW OF SYSTEMS: CONSTITUTIONAL: Denies fever or chills. HEAD, EARS, EYES, NOSE, AND THROAT: Denies visual blurring, denies difficulty swallowing. NECK: Denies pain or swelling. CARDIOVASCULAR: Denies palpitation. RESPIRATORY: Significant for cough and shortness of breath. Denies chest pain. GASTROINTESTINAL: Denies diarrhea, nausea, vomiting, or abdominal pain. GENITOURINARY: Denies frequency or dysuria. HEMATOPOIETIC: Denies easy bruising or bleeding. ENDOCRINE: Denies polydipsia or polyuria. INTEGUMENTARY: Denies skin rash or itching. NEUROLOGIC: Denies problems with coordination. PSYCHIATRIC: Denies mood changes. PHYSICAL EXAMINATION: This is a well-developed, moderately obese male who is awake and alert and in no acute distress. VITAL SIGNS: Temperature 97.8, BP 118/60, respirations 18, heart rate 69. HEENT: The head is atraumatic. Extraocular movements grossly intact, pupils reactive to light. No icterus. OROPHARYNX: Moist mucosa. No lesions. NECK: Supple without adenopathy. LUNGS: Coarse bilateral rhonchi with mild wheezing. HEART: Irregular rate and rhythm. No murmurs, rubs, or gallops. ABDOMEN: Bowel sounds present, soft, no tenderness. RECTAL: Not performed. EXTREMITIES: No clubbing, cyanosis, or edema. SKIN: Mild reddish hue to the skin of the legs. Otherwise, no diffuse rash. NEUROLOGIC: No gross focal findings. PSYCHIATRIC: Patient is calm and cooperative. LABORATORY STUDIES: WBC 7.0, platelets 154, 87% neutrophils, hemoglobin 13.5. Creatinine 1.20, BUN 20. Sodium 138. LFTs normal. IMPRESSION: 1. Pneumonia. Patient with respiratory symptoms with cough and dyspnea on exertion and CT scan shows patchy focal infiltrates in both lung bases. 2. Failed outpatient treatment with oral antibiotic; doxycycline, Levaquin, and azithromycin. 3. Normal white blood cell count. 4. Acute kidney disease, mild. RECOMMENDATIONS: 1. Continue piperacillin/tazobactam. 2. Continue vancomycin for potential MRSA pneumonia in patient with pneumonia that is not improving. 3. Monitor sputum culture. 4. Add fungal analysis on the sputum as well, since the patient recently traveled to [place] and started having the symptoms after he returned from [place]. 5. Monitor clinical response. Thank you for this consultation. I will monitor the patient's progress with you and will make further recommendations upon followup if necessary. MD Ana Lilia Cao MD FFD/TI , 01:47 PM , 03:15 PM
--- NOTE | 2017-11-15 16:03 | HHI.PR ---
Subjective Remarks seen with at bedside smokes very occasional cigars once in a while still with some rhonchi on exam sputum minimal- states few days before- bringing up grayish sputum- this am- minimal states almost every year viral flu and gets superimposed bacterial Pneumonia he got flu shot and Prevnar shot state good hypoglycemic awareness he has history of vasculitis with neuropathy and takes Prednisone 7.5 mg daily maintenance for this Objective Vitals Vital Signs Date Time Temp Pulse Resp B/P (MAP) Pulse Ox O2 Delivery O2 Flow Rate FiO2 11/15/17 15:45 113 11/15/17 12:09 97.8 69 18 118/60 (79) 93 11/15/17 08:30 Nasal Cannula 3.00 11/15/17 08:00 75 11/15/17 07:59 96 Nasal Cannula 2.00 11/15/17 04:00 97.4 75 19 140/86 (104) 95 11/15/17 04:00 Nasal Cannula 3.00 11/15/17 03:55 68 11/15/17 00:19 97.5 72 18 145/82 (103) 96 11/15/17 00:00 Nasal Cannula 3.00 11/14/17 23:46 69 11/14/17 20:13 83 11/14/17 20:00 97.3 71 20 129/79 (96) 98 11/14/17 20:00 Nasal Cannula 3.00 11/14/17 19:52 97 Nasal Cannula 3.00 11/14/17 16:27 I/O 11/14/17 11/14/17 11/14/17 11/15/17 11/15/17 11/15/17 07:00 15:00 23:00 07:00 15:00 23:00 Intake Total 100 ml 1900 ml Balance 100 ml 1900 ml Intake Oral 800 ml IV Total 100 ml 1100 ml # Voids 5 Result Diagram: 11/15/17 0530 11/15/17 [address] Angiography 11/14/17 1223 Signed Impressions: Service Date/Time: Tuesday, November 14, 2017 14:21 - CONCLUSION: 1. No evidence of pulmonary embolism. 2. Patchy parenchymal infiltrates in both lung bases, left greater than right. 3. Compensated cardiomegaly. 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 Patchy parenchymal infiltrates in both lung bases, left greater than right. Compensated cardiomegaly allergy read. -On zosyn and vanco IV -Duonebs scheduled and as need -O2 supplement keep O2 sat > 94% -Continue on current Solumedrol dose- taper steroids as tolerated (to maintaince dose of 7.5 mg for his vasculitis) -Incentive spirometry -Dr. Hodgson ff - get PFTs- consider Pulmonary consult with his vasculitis - may have some form of Interstitial lung disease- - patient not impressive smoking history History of Vasculitis with neuropathy --restart his Lyrica 200 mg q 8 - on prednisone chronic as OP ( 7.5 mg ) currently on IV solumedrol - ff as OP by Dr. Díaz DM type 2 - states good readings at home on Prednisone 7.5 - ff blood sugars- here- expect to be up with IV solumedrol -ADA diet - continue on glipizide 5 mg po bid - start sliding scale insulin - check A1C Hypertension- continue meds- on JULISA/diuretics GERD- on PPI and Carafate History of constipation on Linzess History of Migraine headaches - continue on Imitrex 6 mg sq daily prn - continue psych meds continue all other meds GI prophylaxis: PPI DVT prophylaxis: lovenox/Teds/SCDs Irina Nunez MD Nov 15, 2017 16:03
[2017-11-15] MEDS ORDERED: DEXTROSE 50% IN WATER 50 ML VIAL(D50) IV PUSH PRN ×2 (16:30→16:45)
[2017-11-15] MEDS ORDERED: GLUCAGON 1 MG/ML VIAL OTHER PRN ×2 (16:30→16:45)
[2017-11-15] MEDS ORDERED: INSULIN NovoLIN REGULAR SUPPLEMENTAL SCALE SQ SCH (17:00)
[2017-11-15] MEDS: ENOXAPARIN SODIUM 40 MG/0.4 ML SYRINGE SQ SCH (17:11)
[2017-11-15] MEDS: glipiZIDE 5 MG TAB PO SCH (18:35)
[2017-11-15] MEDS: INSULIN ASPART SUPPLEMENTAL SCALE SQ SCH ×2 (18:36→21:30)
[2017-11-15] MEDS: VANCOMYCIN INJ 1,750 MG in SODIUM CHLORID 0.9% 500 ML INJ 500 ML IV SCH (18:36)
[2017-11-15] MEDS: DONEPEZIL HCL 5 MG TAB PO SCH (20:18)
[2017-11-15] MEDS: SUMAtriptan INJ 6 MG/0.5 ML VIAL SQ PRN (20:18)
[2017-11-15] MEDS: TEMAZEPAM 15 MG CAP PO PRN (23:01)
[2017-11-16] VITALS (13 sets, daily range): BP systolic 110–132; BP diastolic 58–88; PULSE 62–78; RESP 16–19; TEMP 97.3–98; O2SAT 94–99
[2017-11-16] MEDS: PIPERACIL-TAZO 4.5 GM PREMIX 100 ML IV SCH ×4 (04:56→22:03)
[2017-11-16] MEDS: CARBIDOPA/LEVODOPA 25 MG/100 MG TAB PO SCH ×3 (05:00→22:03)
[2017-11-16] MEDS: methylPREDNISolone SOD SUCC 40 MG/1 ML VIAL IV PUSH SCH ×3 (05:00→22:09)
[2017-11-16] MEDS: INSULIN ASPART SUPPLEMENTAL SCALE SQ SCH ×4 (08:00→22:07)
[2017-11-16] MEDS: LINZESS 145 MCG PO SCH (08:36)
[2017-11-16] MEDS: glipiZIDE 5 MG TAB PO SCH ×2 (08:36→18:01)
[2017-11-16] MEDS: RESP: ALBUTEROL 2.5 MG/IPRATROPIUM 0.5 MG NEB (SCH) NEB ×4 (08:36→19:57)
[2017-11-16] MEDS: TRIAMTERENE/HCTZ 37.5 MG/25 MG TAB PO SCH (08:37)
[2017-11-16] MEDS: DULoxetine HCl DR 60 MG CAP PO SCH (08:37)
[2017-11-16] MEDS: CELECOXIB 200 MG CAP PO SCH (08:37)
[2017-11-16] MEDS: PREGABALIN 100 MG CAP PO SCH ×3 (08:37→18:01)
[2017-11-16] MEDS: PANTOPRAZOLE SOD 40 MG DELAYED RELEASE TAB PO SCH (08:37)
[2017-11-16] MEDS: SUCRALFATE 1 GM TAB PO SCH ×4 (08:37→22:06)
[2017-11-16] MEDS: DOCUSATE SODIUM 50 MG/SENNA 8.6 MG TAB PO SCH ×2 (08:38→22:03)
[2017-11-16] MEDS: ESCITALOPRAM OXALATE 10 MG TAB PO SCH (08:38)
[2017-11-16] MEDS: ASPIRIN EC 81 MG TABEC PO SCH (08:38)
[2017-11-16] MEDS: LIPASE/PROTEASE/AMYLASE (24,000/76,000/120,000) CAP PO SCH ×3 (08:38→18:01)
[2017-11-16] MEDS: LISINOPRIL 10 MG TAB PO SCH (08:38)
[2017-11-16] MEDS: TOPIRAMATE 25 MG TAB PO SCH ×2 (08:38→22:03)
[2017-11-16] MEDS: SODIUM CHLORIDE 0.9% FLUSH 10 ML FLUSH IV FLUSH SCH ×2 (08:39→21:00)
[2017-11-16] MEDS: SODIUM CHLOR 0.9% 1000 ML INJ 1,000 ML IV SCH (08:40)
--- NOTE | 2017-11-16 10:58 | HHI.PR ---
Subjective Remarks The margin of the bed. She still feels short of breath and he is coughing some yellow productive sputum. No fever or chills overnight. Denies any chest pain. He says he is coughing more especially if he takes a deep breath. Says cough is not stopping. Objective Vitals Vital Signs Date Time Temp Pulse Resp B/P (MAP) Pulse Ox O2 Delivery O2 Flow Rate FiO2 11/16/17 08:37 96 21 11/16/17 08:00 98.0 66 16 132/88 (103) 95 11/16/17 04:07 76 11/16/17 04:00 Nasal Cannula 3.00 11/16/17 04:00 97.4 70 19 110/60 (77) 97 11/16/17 00:00 Nasal Cannula 3.00 11/16/17 00:00 98.0 62 18 118/58 (78) 99 11/15/17 23:53 72 11/15/17 20:45 96 11/15/17 20:00 Nasal Cannula 3.00 11/15/17 20:00 97.7 72 19 124/62 (82) 95 11/15/17 19:47 76 11/15/17 19:28 69 11/15/17 16:12 97.8 70 18 118/70 (86) 95 11/15/17 15:45 113 11/15/17 12:09 97.8 69 18 118/60 (79) 93 I/O 11/15/17 11/15/17 11/15/17 11/16/17 11/16/17 11/16/17 07:00 15:00 23:00 07:00 15:00 23:00 Intake Total 1900 ml 1670 ml 240 ml Output Total 4 ml Balance 1900 ml 1670 ml 236 ml Intake Oral 800 ml 720 ml 240 ml IV Total 1100 ml 950 ml Output Urine Total 4 ml # Voids 5 4 # Bowel Movements 1 Result Diagram: 11/15/17 0530 11/15/17 [address] Angiography 11/14/17 1223 Signed Impressions: Service Date/Time: Tuesday, November 14, 2017 14:21 - CONCLUSION: 1. No evidence of pulmonary embolism. 2. Patchy parenchymal infiltrates in both lung bases, left greater than right. 3. Compensated cardiomegaly. Maksim Scanlon MD Objective Remarks GENERAL: Pleasant male awake and oriented appears in nad. CARDIOVASCULAR: Regular rate and rhythm. RESPIRATORY: No accessory muscle use. Clear to auscultation. Breath sounds equal bilaterally. GASTROINTESTINAL: Abdomen soft, non-tender, nondistended. Hepatic and splenic margins not palpable. MUSCULOSKELETAL: Extremities without clubbing, cyanosis, or edema. No obvious deformities. NEUROLOGICAL: Awake and alert. No obvious cranial nerve deficits. Motor grossly within normal limits. Five out of 5 muscle strength in the arms and legs. Normal speech. PSYCHIATRIC: Appropriate mood and affect; insight and judgment normal. 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 Patchy parenchymal infiltrates in both lung bases, left greater than right. Compensated cardiomegaly allergy read. -On zosyn and vanco IV -Duonebs scheduled and as need -O2 supplement keep O2 sat > 94% -Continue on current Solumedrol dose- taper steroids as tolerated (to maintaince dose of 7.5 mg for his vasculitis) -Incentive spirometry -Sputum cultures reviewed normal. Repeat sputum cultures per infectious disease. Also check for MAC -Add Mucinex. Add Tylenol/codeine for persistent cough -Dr. Gokul gallegos - get PFTs- Pulmonary consult with his vasculitis - may have some form of Interstitial lung disease- - patient not impressive smoking history History of Vasculitis with neuropathy --restart his Lyrica 200 mg q 8 - on prednisone chronic as OP ( 7.5 mg ) currently on IV solumedrol - ff as OP by Dr. Díaz DM type 2 - states good readings at home on Prednisone 7.5 - ff blood sugars- here- expect to be up with IV solumedrol -ADA diet - continue on glipizide 5 mg po bid - start sliding scale insulin - check A1C Hypertension- continue meds- on JULISA/diuretics GERD- on PPI and Carafate History of constipation on Linzess History of Migraine headaches - continue on Imitrex 6 mg sq daily prn - continue psych meds continue all other meds GI prophylaxis: PPI DVT prophylaxis: lovenox/Teds/SCDs Discussed with the patient, nurse, Dr. Hodgson infectious disease Cosma,Ana Lilia MD Nov 16, 2017 10:58
--- NOTE | 2017-11-16 12:03 | HHI.IDPN ---
Note Infectious Disease Note Patient has profuse coughing spells. Notes that he is coughing up sputum sun sputum. No hemoptysis. Gets some chest pain with coughing. No SOB. Afebrile. Sputum culture has normal carson. 77-year-old white male who presented to the emergency department with respiratory symptoms. The patient does have cough and sputum production and shortness of breath for about a month. He was treated with 3 courses of antibiotics including Levaquin, doxycycline, and Z-DASHA. He did not improve and presented to emergency department. The patient has been on prednisone for vasculitis. He takes the prednisone daily. The patient and his report that they traveled from [place] about a month ago and when they got on the airplane to return to home from [place], that virtually everyone on the airplane was coughing. The patient had no problems with fever or chills, however. The patient states that he has had difficulty lying flat since he started having the problem and he has been coughing all day since the coughing began. PAST MEDICAL HISTORY: Depression, hyperlipidemia, allergic rhinitis, hypertension, gastroesophageal reflux disease, migraines, vasculitis, cerebrovascular accident in 2009 with minimal left lower extremity weakness, chronic low back pain, spinal stimulator which was replaced last year by fusion surgery, carotid artery surgery, left lower leg surgery. ALLERGIES: NO KNOWN DRUG ALLERGIES. MEDICATIONS: Current Medications Medications (Trade) Dose Ordered Sig/Nilsa Route PRN Reason Start Time Stop Time Status Last Admin Dose Admin Aspirin (Ecotrin Ec) 81 mg DAILY PO 11/15/17 09:00 2 08:38 Carbidopa/Levodopa (Sinemet 25-100 Mg) 1 tab Q8HR PO 11/14/17 22:00 11/16/17 12:55 Celecoxib (CeleBREX) 200 mg DAILY PO 11/15/17 09:00 11/16/17 08:37 Donepezil HCl (Aricept) 10 mg HS PO 11/14/17 21:00 11/15/17 20:18 Duloxetine HCl (Cymbalta Dr) 60 mg DAILY PO 11/15/17 09:00 11/16/17 08:37 Escitalopram Oxalate (Lexapro) 10 mg DAILY PO 11/15/17 09:00 11/16/17 08:38 Acetaminophen/ Hydrocodone Bitart ([place] 5-325 Mg) 1 tab Q6H PRN PO PAIN 1-10 11/14/17 16:00 Lisinopril (Prinivil) 10 mg DAILY PO 11/15/17 09:00 11/16/17 08:38 Sucralfate (Carafate) 1 gm QID PO 11/14/17 18:00 11/16/17 12:54 Temazepam (Restoril) 30 mg HS PRN PO INSOMNIA 11/14/17 16:00 11/15/17 23:01 Topiramate (Topamax) 25 mg BID PO 11/14/17 21:00 11/16/17 08:38 Triamterene/HCTZ (Maxzide 37.5-25 Mg) 0.5 tab DAILY PO 11/15/17 09:00 11/16/17 08:37 Pantoprazole Sodium (Protonix) 40 mg DAILY PO 11/15/17 09:00 11/16/17 08:37 Patient Own Medication PT OWN MED: MOVAN... DAILY PO 11/15/17 09:00 Future Hold Amylase/Lipase/ Protease (Creon 24-76-120) 1 cap TIDPC PO 11/14/17 18:30 11/16/17 12:54 Piperacillin Sod/ Tazobactam Sod 100 ml @ 200 mls/hr Q6H IV 11/14/17 22:00 11/16/17 08:46 Pharmacy Profile Note 0 ml @ 0 mls/hr UNSCH OTHER 11/14/17 16:15 Sodium Chloride 1,000 ml @ 100 mls/hr Q10H IV 11/14/17 17:00 11/16/17 08:40 Sodium Chloride (NS Flush) 2 ml UNSCH PRN IV FLUSH FLUSH AFTER USING IV ACCESS 11/14/17 16:15 Sodium Chloride (NS Flush) 2 ml BID IV FLUSH 11/14/17 21:00 11/16/17 08:39 Acetaminophen (Tylenol) 650 mg Q4H PRN PO TEMP > 100.4 11/14/17 16:15 Ondansetron HCl (Zofran Inj) 4 mg Q6H PRN IVP NAUSEA OR VOMITING 11/14/17 16:15 Enoxaparin Sodium (Lovenox Inj) 40 mg Q24H SQ 11/14/17 18:00 11/15/17 17:11 Naloxone HCl (Narcan Inj) 0.4 mg UNSCH PRN IV PUSH SEE LABEL COMMENTS 11/14/17 16:15 Senna/Docusate Sodium (Mili-Colace) 1 tab BID PO 11/14/17 21:00 11/16/17 08:38 Magnesium Hydroxide (Milk Of Magnesia Liq) 30 ml Q12H PRN PO Mild constipation 11/14/17 16:15 Sennosides (Senokot) 17.2 mg Q12H PRN PO Moderate constipation 11/14/17 16:15 Bisacodyl (Dulcolax Supp) 10 mg DAILY PRN RECTAL SEVERE CONSITIPATION 11/14/17 16:15 Lactulose (Lactulose Liq) 30 ml DAILY PRN PO SEVERE CONSITIPATION 11/14/17 16:15 Methylprednisolone Sodium Succinate (SoluMEDROL INJ) 40 mg Q6HR IV PUSH 11/14/17 18:00 11/16/17 12:54 Albuterol/ Ipratropium (Duoneb Neb) 1 ampule Q4HR WHILE AWAKE NEB NEB 11/14/17 20:00 11/16/17 12:05 Albuterol/ Ipratropium (Duoneb Neb) 1 ampule Q2HR NEB PRN NEB sob/wheezing 11/14/17 16:30 Vancomycin HCl 1750 mg/Sodium Chloride 517.5 ml @ 250 mls/hr Q24H IV 11/15/17 17:00 11/15/17 18:36 Miscellaneous Information SPECIFIC LAB TO BE BRITTANY... ONCE ONCE .XX 11/17/17 16:45 11/17/17 16:46 Patient Own Medication PT OWN MED: LINZ... DAILY PO 11/15/17 09:00 11/16/17 08:36 Pregabalin (Lyrica) 200 mg TID PO 11/15/17 18:00 11/16/17 12:54 Sumatriptan Succinate (Imitrex Inj) 6 mg DAILY PRN SQ MIGRAIN HEADACHE 11/15/17 16:30 11/15/17 20:18 Glipizide (Glucotrol) 5 mg BID@08,17 PO 11/15/17 17:00 11/16/17 08:36 Dextrose (D50w (Vial) Inj) 50 ml UNSCH PRN IV PUSH HYPOGLYCEMIA-SEE COMMENTS 11/15/17 16:45 Glucagon (Glucagon Inj) 1 mg UNSCH PRN OTHER HYPOGLYCEMIA-SEE COMMENTS 11/15/17 16:45 Insulin Aspart (NovoLOG SUPPLEMENTAL SCALE) 1 ACHS SLIDING SCALE SQ 11/15/17 17:00 11/16/17 12:53 Guaifenesin/ Dextromethorphan (Robitussin Dm 200-20 Mg/10 ml Liq) 10 ml Q6H PRN PO cough 11/16/17 12:00 SOCIAL HISTORY: The patient is . He smokes occasional cigar. Occasional social alcohol. No substance abuse. OBJECTIVE: Vital Signs Date Time Temp Pulse Resp B/P (MAP) Pulse Ox O2 Delivery O2 Flow Rate FiO2 11/16/17 08:37 96 21 11/16/17 08:00 98.0 66 16 132/88 (103) 95 11/16/17 08:00 95 Room Air 11/16/17 04:07 76 11/16/17 04:00 Nasal Cannula 3.00 11/16/17 04:00 97.4 70 19 110/60 (77) 97 11/16/17 00:00 Nasal Cannula 3.00 11/16/17 00:00 98.0 62 18 118/58 (78) 99 11/15/17 23:53 72 11/15/17 20:45 96 11/15/17 20:00 Nasal Cannula 3.00 11/15/17 20:00 97.7 72 19 124/62 (82) 95 11/15/17 19:47 76 11/15/17 19:28 69 11/15/17 16:12 97.8 70 18 118/70 (86) 95 11/15/17 15:45 113 Laboratory Tests Test 11/15/17 05:30 White Blood Count 7.0 TH/MM3 Red Blood Count 4.31 MIL/MM3 Hemoglobin 13.5 GM/DL Hematocrit 39.8 % Mean Corpuscular Volume 92.2 FL Mean Corpuscular Hemoglobin 31.3 PG Mean Corpuscular Hemoglobin Concent 34.0 % Red Cell Distribution Width 14.9 % Platelet Count 154 TH/MM3 Mean Platelet Volume 9.0 FL Neutrophils (%) (Auto) 87.3 % Lymphocytes (%) (Auto) 10.2 % Monocytes (%) (Auto) 2.5 % Eosinophils (%) (Auto) 0.0 % Basophils (%) (Auto) 0.0 % Neutrophils # (Auto) 6.1 TH/MM3 Lymphocytes # (Auto) 0.7 TH/MM3 Monocytes # (Auto) 0.2 TH/MM3 Eosinophils # (Auto) 0.0 TH/MM3 Basophils # (Auto) 0.0 TH/MM3 CBC Comment DIFF FINAL Differential Comment Laboratory Tests Test 11/15/17 05:50 Blood Urea Nitrogen 20 MG/DL Creatinine 1.20 MG/DL Random Glucose 283 MG/DL Calcium Level 8.7 MG/DL Sodium Level 138 MEQ/L Potassium Level 4.1 MEQ/L Chloride Level 106 MEQ/L Carbon Dioxide Level 23.8 MEQ/L Anion Gap 8 MEQ/L Estimat Glomerular Filtration Rate 59 ML/MIN Microbiology Date/Time Source Procedure Growth Status 11/14/17 15:00 Blood Line Aerobic Blood Culture - Preliminary NO GROWTH IN 2 DAYS Resulted 11/14/17 15:00 Blood Line Anaerobic Blood Culture - Preliminary NO GROWTH IN 2 DAYS Resulted 11/14/17 14:40 Blood Line Aerobic Blood Culture - Preliminary NO GROWTH IN 2 DAYS Resulted 11/14/17 14:40 Blood Line Anaerobic Blood Culture - Preliminary NO GROWTH IN 2 DAYS Resulted 11/15/17 14:58 Throat Throat Culture - Preliminary Resulted 11/14/17 19:45 Sputum Expectorated Sputum Fungal Smear - Final NO FUNGAL ELEMENTS SEEN. Resulted 11/14/17 19:45 Sputum Expectorated Sputum Fungal Culture Pending Resulted 11/14/17 19:45 Sputum Expectorated Sputum Gram Stain - Final Complete 11/14/17 19:45 Sputum Expectorated Sputum Sputum Culture - Final HEAVY GROWTH NORMAL RESPIRATORY CARSON Complete IMAGING: CT Angiography 11/14/17 1223 Signed Impressions: Service Date/Time: Tuesday, November 14, 2017 14:21 - CONCLUSION: 1. No evidence of pulmonary embolism. 2. Patchy parenchymal infiltrates in both lung bases, left greater than right. 3. Compensated cardiomegaly. Maksim Scanlon MD PHYSICAL EXAMINATION: GENERAL: Awake and alert. No acute distress. HEENT: The head is atraumatic. Extraocular movements grossly intact, pupils reactive to light. No icterus. OROPHARYNX: Moist mucosa. No lesions. NECK: Supple without adenopathy. LUNGS: Coarse bilateral rhonchi. HEART: Irregular rate and rhythm. No murmurs, rubs, or gallops. ABDOMEN: Bowel sounds present, soft, no tenderness. EXTREMITIES: No clubbing, cyanosis, or edema. SKIN: Mild reddish hue to the skin of the legs. Otherwise, no diffuse rash. NEUROLOGIC: No gross focal findings. PSYCHIATRIC: Patient is calm and cooperative. IMPRESSION: 1. Pneumonia. ? etiology. Patient with respiratory symptoms with cough and dyspnea on exertion and CT scan shows patchy focal infiltrates in both lung bases. 2. Failed outpatient treatment with oral antibiotic; doxycycline, Levaquin, and azithromycin. 3. Acute kidney disease, mild. RECOMMENDATIONS: 1. Continue piperacillin/tazobactam. 2. Continue vancomycin for potential MRSA pneumonia in patient with pneumonia that is not improving. 3. Repeat the sputum culture. Bacteria. Also AFB. could have atypical bacterial infection since he has been on steroids. 4. CXR. 5. Mycoplasma serology. 6. Add fungal coverage if he is not improving. 7. Pulmonary consult. 8. Monitor clinical response. 9. Robitussin for cough. Mack Hodgson MD Nov 16, 2017 12:03
--- NOTE | 2017-11-16 15:08 | RADRPT ---
EXAM DATE/TIME: 11/16/2017 12:59 [facility] COMPARISON: No previous studies available for comparison. INDICATIONS : Shortness of breath, cough, and congestion. MEDICAL HISTORY : CVA. Coronary artery disease. Dementia. parkinsons. SURGICAL HISTORY : Appendectomy. Right carotid endarectomy. Spinal cord stimulator. ENCOUNTER: Subsequent ACUITY: 1 month PAIN SCORE: 0/10 LOCATION: Bilateral chest FINDINGS: A single view of the chest demonstrates minimal bibasilar atelectasis. Heart borderline enlarged.. T he cardiomediastinal contours are unremarkable. Osseous structures are intact. Neural stimulator aida ds in the thoracic spine. CONCLUSION: 1. Bibasilar densities likely atelectasis. Tejas Duke MD on November 16, 2017 at 15:06 Board Certified Radiologist. This report was verified electronically.
[2017-11-16] MEDS: VANCOMYCIN INJ 1,750 MG in SODIUM CHLORID 0.9% 500 ML INJ 500 ML IV SCH (17:59)
[2017-11-16] MEDS: ENOXAPARIN SODIUM 40 MG/0.4 ML SYRINGE SQ SCH (18:00)
[2017-11-16] MEDS ORDERED: SUMAtriptan INJ 6 MG/0.5 ML VIAL SQ PRN (18:00)
--- NOTE | 2017-11-16 19:21 | MB ---
cc: Ramos Beasley MD DATE OF CONSULT: 11/16/2017 REASON FOR CONSULTATION: Pneumonia. HISTORY OF PRESENT ILLNESS: Mr. Cano is a 77-year-old male presents to the emergency room with increasing shortness of breath, persistent cough, whitish yellowish mucoid sputum. The patient has been ill since September, has received multiple antibiotic courses; tetracycline, Z-Saad, Levaquin without improvement, CT scan with evidence of bilateral basilar patchy infiltrates suggestive of pneumonitis. The patient has a history of vasculitis for which has been on long-term steroid therapy. PAST MEDICAL HISTORY: Vasculitis, hypertension, hyperlipidemia, acid reflux, allergic rhinitis, mood disorder namely depression, CVA in 2009, minimal weakness left lower extremity. He has a spinal stimulator in place, has had carotid artery surgery in the past as well as lower extremity revascularization. MEDICATIONS: At present include piperacillin/tazobactam, vancomycin, Celebrex, prednisone, Sinemet, Protonix, Maxzide, Prinivil, Aricept, Lyrica, Topamax, Carafate, Lovenox and presently on Medrol. SOCIAL HISTORY: He smokes a cigar on occasion, drinks alcohol socially, , does not use drugs. FAMILY HISTORY: Positive for hypertension, otherwise unremarkable. SYSTEMS REVIEW: Twelve-point of review of systems as per HPI and past history, otherwise negative. PHYSICAL EXAMINATION: GENERAL: Patient alert. VITAL SIGNS: Temperature 98, pulse 70, respiration 18, blood pressure 120/60. HEENT: Unremarkable. Eyes without icterus. NECK: Without adenopathy, thyroid enlargement. Trachea central. CHEST: Scattered rhonchi bilaterally, scattered wheeze. CARDIAC: PMI distant. S1, S2 audible, no murmur, no rub. ABDOMEN: Lax bowel sounds audible. EXTREMITIES: No clubbing, cyanosis, or edema. LABORATORY DATA: White count 7000, hemoglobin 13, hematocrit 39, platelets of 154,000. Sodium 138, potassium 4.1, BUN 20, creatinine 1.2. INR 1.1. CT angiogram with bilateral patchy infiltrates. IMPRESSION: 1. Bilateral pneumonia. 2. Question chronic obstructive pulmonary disease. 3. Vasculitis, on steroid therapy. 4. Hypertension. 5. Hyperlipidemia. 6. Acid reflux disease. 7. Migraine headaches. 8. History of cerebrovascular accident, residual minimal left lower extremity weakness. 9. Chronic back pain, spinal stimulator in place. 10. Peripheral vascular disease. PLAN: The patient has pneumonia. Antibiotic therapy has been initiated on this patient, is followed by infectious disease. We will check baseline pulmonary function as well as an echocardiogram to assess left ventricular performance. Follow the patient's course along with you and depending on progress proceed further. I do thank you for asking me to partake Mr. Andres Cano's care. Ramos Beasley MD WWW/cc , 06:49 PM , 07:20 PM
[2017-11-16] MEDS: SUMAtriptan INJ 6 MG/0.5 ML VIAL SQ PRN (20:14)
[2017-11-16] MEDS: guaiFENesin E.R. 600 MG TAB PO SCH (22:03)
[2017-11-16] MEDS: DONEPEZIL HCL 5 MG TAB PO SCH (22:06)
[2017-11-16] MEDS: TEMAZEPAM 15 MG CAP PO PRN (22:58)
[2017-11-17] VITALS (13 sets, daily range): BP systolic 110–166; BP diastolic 59–85; PULSE 55–85; RESP 14–20; TEMP 97.3–98.4; O2SAT 92–98
[2017-11-17] MEDS: SODIUM CHLOR 0.9% 1000 ML INJ 1,000 ML IV SCH ×2 (02:02→13:24)
[2017-11-17] MEDS: RESP: ALBUTEROL 2.5 MG/IPRATROPIUM 0.5 MG NEB (PRN) NEB ×2 (03:38→23:10)
[2017-11-17] MEDS: PIPERACIL-TAZO 4.5 GM PREMIX 100 ML IV SCH ×4 (04:43→20:48)
[2017-11-17] MEDS: CARBIDOPA/LEVODOPA 25 MG/100 MG TAB PO SCH ×3 (06:30→20:50)
[2017-11-17] MEDS: methylPREDNISolone SOD SUCC 40 MG/1 ML VIAL IV PUSH SCH ×3 (06:30→20:50)
[2017-11-17 07:51] LABS: AUTOMATED NEUTROPHIL # 7.4 TH/MM3 (1.8-7.7); BASOPHIL % 0.1 % (0.0-2.0); HEMATOCRIT 37.8 % (39.0-51.0); HEMOGLOBIN 12.8 GM/DL (13.0-17.0); LYMPH % 8.8 % (9.0-44.0); LYMPHOCYTE # 0.8 TH/MM3 (1.0-4.8); MEAN CELL VOLUME 92.3 FL (80.0-100.0); MEAN CORPUSCULAR HEMOGLOBIN 31.4 PG (27.0-34.0); MEAN PLATELET VOLUME 8.5 FL (7.0-11.0); MONO % 5.9 % (0.0-8.0); MONOCYTE # 0.5 TH/MM3 (0-0.9); NEUT % 85.2 % (16.0-70.0); PLATELET COUNT 154 TH/MM3 (150-450); RED BLOOD COUNT 4.09 MIL/MM3 (4.50-5.90); WHITE BLOOD COUNT 8.7 TH/MM3 (4.0-11.0)
[2017-11-17] MEDS: RESP: ALBUTEROL 2.5 MG/IPRATROPIUM 0.5 MG NEB (SCH) NEB ×4 (08:00→19:46)
[2017-11-17] MEDS: INSULIN ASPART SUPPLEMENTAL SCALE SQ SCH ×4 (08:00→20:51)
[2017-11-17 08:13] LABS: BICARBONATE 22.8 MEQ/L (21.0-32.0); CREATININE 1.27 MG/DL (0.60-1.30)
[2017-11-17] MEDS: SODIUM CHLORIDE 0.9% FLUSH 10 ML FLUSH IV FLUSH SCH ×2 (09:00→20:53)
[2017-11-17] MEDS: TRIAMTERENE/HCTZ 37.5 MG/25 MG TAB PO SCH (10:55)
[2017-11-17] MEDS: DOCUSATE SODIUM 50 MG/SENNA 8.6 MG TAB PO SCH ×2 (10:55→20:50)
[2017-11-17] MEDS: CELECOXIB 200 MG CAP PO SCH (10:56)
[2017-11-17] MEDS: guaiFENesin E.R. 600 MG TAB PO SCH ×2 (10:56→20:52)
[2017-11-17] MEDS: PANTOPRAZOLE SOD 40 MG DELAYED RELEASE TAB PO SCH (10:56)
[2017-11-17] MEDS: glipiZIDE 5 MG TAB PO SCH ×2 (10:56→17:31)
[2017-11-17] MEDS: LIPASE/PROTEASE/AMYLASE (24,000/76,000/120,000) CAP PO SCH ×3 (10:56→17:31)
[2017-11-17] MEDS: ESCITALOPRAM OXALATE 10 MG TAB PO SCH (10:56)
[2017-11-17] MEDS: LISINOPRIL 10 MG TAB PO SCH (10:56)
[2017-11-17] MEDS: DULoxetine HCl DR 60 MG CAP PO SCH (10:57)
[2017-11-17] MEDS: SUCRALFATE 1 GM TAB PO SCH ×4 (10:57→20:51)
[2017-11-17] MEDS: ASPIRIN EC 81 MG TABEC PO SCH (10:57)
[2017-11-17] MEDS: TOPIRAMATE 25 MG TAB PO SCH ×2 (10:57→20:50)
[2017-11-17] MEDS: PREGABALIN 100 MG CAP PO SCH ×3 (10:57→17:30)
[2017-11-17] MEDS: LINZESS 145 MCG PO SCH (10:58)
[2017-11-17] MEDS: ACETAMINOPHEN/CODEINE ELIX 120 MG/12 MG/5 ML CUP PO PRN ×2 (13:22→17:27)
--- NOTE | 2017-11-17 13:41 | HHI.IDPN ---
Note Infectious Disease Note Patient sitting in chair. Eating. Feels a little better. Reports that he had a bad night last night because of coughing and he had difficulty sleeping. Notes that he is coughing up sputum yellow sputum after breathing treatment. No hemoptysis. Ambulated the hallways. Notes that he became short of breath while ambulating. Afebrile. Chest x-ray has bibasilar densities. Likely atelectasis. Sputum culture has normal carson. Sputum AFB smear negative. Pulmonary input appreciated. 77-year-old white male who presented to the emergency department with respiratory symptoms. The patient does have cough and sputum production and shortness of breath for about a month. He was treated with 3 courses of antibiotics including Levaquin, doxycycline, and Z-DASHA. He did not improve and presented to emergency department. The patient has been on prednisone for vasculitis. He takes the prednisone daily. The patient and his report that they traveled from [place] about a month ago and when they got on the airplane to return to home from [place], that virtually everyone on the airplane was coughing. The patient had no problems with fever or chills, however. The patient states that he has had difficulty lying flat since he started having the problem and he has been coughing all day since the coughing began. PAST MEDICAL HISTORY: Depression, hyperlipidemia, allergic rhinitis, hypertension, gastroesophageal reflux disease, migraines, vasculitis, cerebrovascular accident in 2009 with minimal left lower extremity weakness, chronic low back pain, spinal stimulator which was replaced last year by fusion surgery, carotid artery surgery, left lower leg surgery. ALLERGIES: NO KNOWN DRUG ALLERGIES. MEDICATIONS: Current Medications Medications (Trade) Dose Ordered Sig/Nilsa Route PRN Reason Start Time Stop Time Status Last Admin Dose Admin Aspirin (Ecotrin Ec) 81 mg DAILY PO 11/15/17 09:00 11/17/17 10:57 Carbidopa/Levodopa (Sinemet 25-100 Mg) 1 tab Q8HR PO 11/14/17 22:00 11/17/17 13:23 Celecoxib (CeleBREX) 200 mg DAILY PO 11/15/17 09:00 11/17/17 10:56 Donepezil HCl (Aricept) 10 mg HS PO 11/14/17 21:00 11/16/17 22:06 Duloxetine HCl (Cymbalta Dr) 60 mg DAILY PO 11/15/17 09:00 11/17/17 10:57 Escitalopram Oxalate (Lexapro) 10 mg DAILY PO 11/15/17 09:00 11/17/17 10:56 Acetaminophen/ Hydrocodone Bitart ([place] 5-325 Mg) 1 tab Q6H PRN PO PAIN 1-10 11/14/17 16:00 Lisinopril (Prinivil) 10 mg DAILY PO 11/15/17 09:00 11/17/17 10:56 Sucralfate (Carafate) 1 gm QID PO 11/14/17 18:00 11/17/17 13:23 Temazepam (Restoril) 30 mg HS PRN PO INSOMNIA 11/14/17 16:00 11/16/17 22:58 Topiramate (Topamax) 25 mg BID PO 11/14/17 21:00 11/17/17 10:57 Triamterene/HCTZ (Maxzide 37.5-25 Mg) 0.5 tab DAILY PO 11/15/17 09:00 11/17/17 10:55 Pantoprazole Sodium (Protonix) 40 mg DAILY PO 11/15/17 09:00 11/17/17 10:56 Patient Own Medication PT OWN MED: MOVAN... DAILY PO 11/15/17 09:00 Future Hold Amylase/Lipase/ Protease (Creon 24-76-120) 1 cap TIDPC PO 11/14/17 18:30 11/17/17 13:23 Piperacillin Sod/ Tazobactam Sod 100 ml @ 200 mls/hr Q6H IV 11/14/17 22:00 11/17/17 10:58 Pharmacy Profile Note 0 ml @ 0 mls/hr UNSCH OTHER 11/14/17 16:15 Sodium Chloride 1,000 ml @ 100 mls/hr Q10H IV 11/14/17 17:00 11/17/17 13:24 Sodium Chloride (NS Flush) 2 ml UNSCH PRN IV FLUSH FLUSH AFTER USING IV ACCESS 11/14/17 16:15 Sodium Chloride (NS Flush) 2 ml BID IV FLUSH 11/14/17 21:00 11/16/17 08:39 Acetaminophen (Tylenol) 650 mg Q4H PRN PO TEMP > 100.4 11/14/17 16:15 Ondansetron HCl (Zofran Inj) 4 mg Q6H PRN IVP NAUSEA OR VOMITING 11/14/17 16:15 Enoxaparin Sodium (Lovenox Inj) 40 mg Q24H SQ 11/14/17 18:00 11/16/17 18:00 Naloxone HCl (Narcan Inj) 0.4 mg UNSCH PRN IV PUSH SEE LABEL COMMENTS 11/14/17 16:15 Senna/Docusate Sodium (Mili-Colace) 1 tab BID PO 11/14/17 21:00 11/17/17 10:55 Magnesium Hydroxide (Milk Of Magnesia Liq) 30 ml Q12H PRN PO Mild constipation 11/14/17 16:15 Sennosides (Senokot) 17.2 mg Q12H PRN PO Moderate constipation 11/14/17 16:15 Bisacodyl (Dulcolax Supp) 10 mg DAILY PRN RECTAL SEVERE CONSITIPATION 11/14/17 16:15 Lactulose (Lactulose Liq) 30 ml DAILY PRN PO SEVERE CONSITIPATION 11/14/17 16:15 Albuterol/ Ipratropium (Duoneb Neb) 1 ampule Q4HR WHILE AWAKE NEB NEB 11/14/17 20:00 11/17/17 11:57 Albuterol/ Ipratropium (Duoneb Neb) 1 ampule Q2HR NEB PRN NEB sob/wheezing 11/14/17 16:30 11/17/17 03:38 Vancomycin HCl 1750 mg/Sodium Chloride 517.5 ml @ 250 mls/hr Q24H IV 11/15/17 17:00 11/16/17 17:59 Miscellaneous Information SPECIFIC LAB TO BE BRITTANY... ONCE ONCE .XX 11/17/17 16:45 11/17/17 16:46 Patient Own Medication PT OWN MED: LINZ... DAILY PO 11/15/17 09:00 11/17/17 10:58 Pregabalin (Lyrica) 200 mg TID PO 11/15/17 18:00 11/17/17 13:23 Sumatriptan Succinate (Imitrex Inj) 6 mg DAILY PRN SQ MIGRAIN HEADACHE 11/15/17 16:30 11/16/17 20:14 Glipizide (Glucotrol) 5 mg BID@08,17 PO 11/15/17 17:00 11/17/17 10:56 Dextrose (D50w (Vial) Inj) 50 ml UNSCH PRN IV PUSH HYPOGLYCEMIA-SEE COMMENTS 11/15/17 16:45 Glucagon (Glucagon Inj) 1 mg UNSCH PRN OTHER HYPOGLYCEMIA-SEE COMMENTS 11/15/17 16:45 Insulin Aspart (NovoLOG SUPPLEMENTAL SCALE) 1 ACHS SLIDING SCALE SQ 11/15/17 17:00 11/16/17 22:07 Guaifenesin/ Dextromethorphan (Robitussin Dm 200-20 Mg/10 ml Liq) 10 ml Q6H PRN PO cough 11/16/17 12:00 Methylprednisolone Sodium Succinate (SoluMEDROL INJ) 40 mg Q8HR IV PUSH 11/16/17 22:00 11/17/17 13:23 Sumatriptan Succinate (Imitrex Inj) 6 mg UNSCH PRN SQ MIGRAINE HEADACHE intractable 11/16/17 18:00 Acetaminophen/ Codeine Phosphate (Tylenol - Codeine 120-12 Liq) 5 ml Q4H PRN PO persistent cough 11/16/17 19:00 11/17/17 13:22 Guaifenesin (Mucinex Er) 600 mg BID PO 11/16/17 21:00 11/17/17 10:56 SOCIAL HISTORY: The patient is . He smokes occasional cigar. Occasional social alcohol. No substance abuse. OBJECTIVE: Vital Signs Date Time Temp Pulse Resp B/P (MAP) Pulse Ox O2 Delivery O2 Flow Rate FiO2 11/17/17 12:00 Room Air 11/17/17 12:00 97.7 65 17 130/73 (92) 96 11/17/17 09:59 95 11/17/17 09:00 Room Air 11/17/17 08:00 97.6 55 14 143/73 (96) 95 11/17/17 08:00 68 11/17/17 04:00 97.4 64 20 110/59 (76) 92 11/17/17 03:46 66 11/17/17 03:40 94 11/17/17 00:00 97.9 85 20 138/66 (90) 94 11/16/17 23:59 67 11/16/17 22:55 73 11/16/17 20:29 Room Air 11/16/17 20:00 97.7 64 17 130/70 (90) 95 11/16/17 16:30 97.7 70 17 130/70 (90) 11/16/17 16:00 97.3 74 18 130/70 (90) 97 11/16/17 15:17 95 21 Laboratory Tests Test 11/17/17 07:07 White Blood Count 8.7 TH/MM3 Red Blood Count 4.09 MIL/MM3 Hemoglobin 12.8 GM/DL Hematocrit 37.8 % Mean Corpuscular Volume 92.3 FL Mean Corpuscular Hemoglobin 31.4 PG Mean Corpuscular Hemoglobin Concent 34.0 % Red Cell Distribution Width 15.0 % Platelet Count 154 TH/MM3 Mean Platelet Volume 8.5 FL Neutrophils (%) (Auto) 85.2 % Lymphocytes (%) (Auto) 8.8 % Monocytes (%) (Auto) 5.9 % Eosinophils (%) (Auto) 0.0 % Basophils (%) (Auto) 0.1 % Neutrophils # (Auto) 7.4 TH/MM3 Lymphocytes # (Auto) 0.8 TH/MM3 Monocytes # (Auto) 0.5 TH/MM3 Eosinophils # (Auto) 0.0 TH/MM3 Basophils # (Auto) 0.0 TH/MM3 CBC Comment DIFF FINAL Differential Comment Laboratory Tests Test 11/17/17 07:07 Blood Urea Nitrogen 22 MG/DL Creatinine 1.27 MG/DL Random Glucose 177 MG/DL Calcium Level 8.0 MG/DL Sodium Level 142 MEQ/L Potassium Level 4.0 MEQ/L Chloride Level 110 MEQ/L Carbon Dioxide Level 22.8 MEQ/L Anion Gap 9 MEQ/L Estimat Glomerular Filtration Rate 55 ML/MIN Microbiology Date/Time Source Procedure Growth Status 11/14/17 15:00 Blood Line Aerobic Blood Culture - Preliminary NO GROWTH IN 3 DAYS Resulted 11/14/17 15:00 Blood Line Anaerobic Blood Culture - Preliminary NO GROWTH IN 3 DAYS Resulted 11/14/17 14:40 Blood Line Aerobic Blood Culture - Preliminary NO GROWTH IN 3 DAYS Resulted 11/14/17 14:40 Blood Line Anaerobic Blood Culture - Preliminary NO GROWTH IN 3 DAYS Resulted 11/16/17 13:39 Sputum Expectorated Sputum Acid Fast Stain - Final NO ACID FAST BACILLI SEEN Resulted 11/16/17 13:39 Sputum Expectorated Sputum Mycobacterial Culture Pending Resulted 11/16/17 13:39 Sputum Expectorated Sputum Gram Stain - Final Resulted 11/16/17 13:39 Sputum Expectorated Sputum Sputum Culture - Preliminary HEAVY GROWTH NORMAL RESPIRATORY CARSON... Resulted 11/15/17 14:58 Throat Throat Culture - Final NORMAL RESPIRATORY CARSON Complete 11/14/17 19:45 Sputum Expectorated Sputum Fungal Smear - Final NO FUNGAL ELEMENTS SEEN. Resulted 11/14/17 19:45 Sputum Expectorated Sputum Fungal Culture Pending Resulted 11/14/17 19:45 Sputum Expectorated Sputum Gram Stain - Final Complete 11/14/17 19:45 Sputum Expectorated Sputum Sputum Culture - Final HEAVY GROWTH NORMAL RESPIRATORY CARSON Complete 11/16/17 23:02 Urine Random Urine Legionella Antigen - Final PRESUMPTIVE NEGATIVE FOR LEGIONELLA P... Complete 11/16/17 23:02 Urine Random Urine Streptococcus pneumoniae Antigen (M - Final PRESUMPTIVE NEGATIVE FOR STREPTOCOCCU... Complete IMAGING: Chest X-Ray 11/16/17 0000 Signed Impressions: Service Date/Time: Thursday, November 16, 2017 12:59 - CONCLUSION: 1. Bibasilar densities likely atelectasis. Tejas Duke MD CT Angiography 11/14/17 1223 Signed Impressions: Service Date/Time: Tuesday, November 14, 2017 14:21 - CONCLUSION: 1. No evidence of pulmonary embolism. 2. Patchy parenchymal infiltrates in both lung bases, left greater than right. 3. Compensated cardiomegaly. Maksim Scanlon MD PHYSICAL EXAMINATION: GENERAL: Awake and alert. No acute distress. HEENT: The head is atraumatic. Extraocular movements grossly intact, pupils reactive to light. No icterus. OROPHARYNX: Moist mucosa. No lesions. NECK: Supple without adenopathy. LUNGS: Coarse bilateral rhonchi. HEART: Irregular rate and rhythm. No murmurs, rubs, or gallops. ABDOMEN: Bowel sounds present, soft, no tenderness. EXTREMITIES: No clubbing, cyanosis, or edema. No calf tenderness. SKIN: No rash. Red hue to the skin of the upper back. NEUROLOGIC: No gross focal findings. PSYCHIATRIC: Patient is calm and cooperative. IMPRESSION: 1. Pneumonia. ? etiology. Patient with respiratory symptoms with cough and dyspnea on exertion and CT scan shows patchy focal infiltrates in both lung bases. Chest x-ray no looks like atelectasis. Cultures negative so far. 2. Failed outpatient treatment with oral antibiotic; doxycycline, Levaquin, and azithromycin. 3. Acute kidney disease, mild. RECOMMENDATIONS: 1. Continue piperacillin/tazobactam. 2. Continue vancomycin for potential MRSA pneumonia in patient with pneumonia that is not improving. 3. Follow mycoplasma serology. 4. Monitor clinical response. Further disposition and antibiotics depending on his clinical response and clinical improvement. Mack Hodgson MD Nov 17, 2017 13:41
--- NOTE | 2017-11-17 16:03 | HHI.PR ---
Subjective Remarks alert on o2 NO DISTRESS Objective Vital Signs Date Time Temp Pulse Resp B/P (MAP) Pulse Ox O2 Delivery O2 Flow Rate FiO2 11/17/17 15:25 Room Air 11/17/17 12:00 Room Air 11/17/17 12:00 73 11/17/17 12:00 97.7 65 17 130/73 (92) 96 11/17/17 09:59 95 11/17/17 09:00 Room Air 11/17/17 08:00 97.6 55 14 143/73 (96) 95 11/17/17 08:00 68 11/17/17 04:00 97.4 64 20 110/59 (76) 92 11/17/17 03:46 66 11/17/17 03:40 94 11/17/17 00:00 97.9 85 20 138/66 (90) 94 11/16/17 23:59 67 11/16/17 22:55 73 11/16/17 20:29 Room Air 11/16/17 20:00 97.7 64 17 130/70 (90) 95 11/16/17 16:30 97.7 70 17 130/70 (90) I/O 11/16/17 11/16/17 11/16/17 11/17/17 11/17/17 11/17/17 07:00 15:00 23:00 07:00 15:00 23:00 Intake Total 240 ml 737.5 ml 1845 ml Output Total 4 ml Balance 236 ml 737.5 ml 1845 ml Intake Oral 240 ml 120 ml 240 ml IV Total 617.5 ml 1605 ml Output Urine Total 4 ml # Voids 6 # Bowel Movements 1 Result Diagram: 11/17/17 0707 11/17/17 0707 Objective Remarks GENERAL: SKIN: Warm and dry. HEAD: Atraumatic. Normocephalic. EYES: Pupils equal and round. No scleral icterus. No injection or drainage. ENT: No nasal bleeding or discharge. Mucous membranes pink and moist. NECK: Trachea midline. No JVD. CARDIOVASCULAR: Regular rate and rhythm. RESPIRATORY: No accessory muscle use. Clear to auscultation. Breath sounds equal bilaterally. GASTROINTESTINAL: Abdomen soft, non-tender, nondistended. Hepatic and splenic margins not palpable. MUSCULOSKELETAL: Extremities without clubbing, cyanosis, or edema. No obvious deformities. NEUROLOGICAL: Awake and alert. No obvious cranial nerve deficits. Motor grossly within normal limits. Five out of 5 muscle strength in the arms and legs. Normal speech. PSYCHIATRIC: Appropriate mood and affect; insight and judgment normal. Assessment and Plan Assessment and Plan RESPIRATORY FAILURE PNA PLAN O2 ANTIBX INCREASE ACTIVITY Ramos Beasley MD Nov 17, 2017 16:03
[2017-11-17] MEDS ORDERED: PHARMACY ORDERED LAB ONE (16:45)
--- NOTE | 2017-11-17 16:57 | ECHRPT ---
Indication: HEART FAILURE CONCLUSIONS Normal left ventricular size. Mild concentric left ventricular hypertrophy. The left ventricular systolic function is hyperdynamic with an estimated ejection fraction in the ra nge of 65- 70%. The left atrial size is [id number] dilated. The right atrial size is mildly dilated. The interatrial septum not well visualized. Trace mitral valve regurgitation. No tricuspid regurgitation. BP: 143 / 73 HR: 68 Rhythm: Sinus MEASUREMENTS (Male / Female) Normal Values Technical Quality:Fair 2D ECHO LV Diastolic Diameter PLAX 5.4 cm 4.2 - 5.9 / 3.9 - 5.3 cm LV Systolic Diameter PLAX 3.3 cm IVS Diastolic Thickness 1.3 cm 0.6 - 1.0 / 0.6 - 0.9 cm LVPW Diastolic Thickness 1.3 cm 0.6 - 1.0 / 0.6 - 0.9 cm LV Relative Wall Thickness 0.5 LVOT Diameter 2.5 cm Aortic Root Diameter 3.4 cm LA Systolic Diameter LX 3.3 cm 3.0 - 4.0 / 2.7 - 3.8 cm DOPPLER AV Peak Velocity 128.0 cm/s AV Peak Gradient 6.6 mmHg AV Mean Gradient 4.0 mmHg AV Velocity Time Integral 24.1 cm LVOT Peak Velocity 83.5 cm/s LVOT Peak Gradient 2.8 mmHg LVOT Velocity Time Integral 14.0 cm AV Area Cont Eq vti 2.9 cm AV Area Cont Eq pk 3.2 cm Mitral E Point Velocity 75.0 cm/s Mitral A Point Velocity 96.3 cm/s Mitral E to A Ratio 0.8 LV E' Lateral Velocity 11.7 cm/s Mitral E to LV E' Lateral Ratio 6.4 LV E' Septal Velocity 7.8 cm/s Mitral E to LV E' Septal Ratio 9.6 PV Peak Velocity 54.9 cm/s PV Peak Gradient 1.2 mmHg FINDINGS LEFT VENTRICLE Normal left ventricular size. Mild concentric left ventricular hypertrophy. The left ventricular systolic function is hyperdynamic with an estimated ejection fraction in the ra nge of 65- 70%. RIGHT VENTRICLE Normal right ventricular size and systolic function. LEFT ATRIUM The left atrial size is [id number] dilated. RIGHT ATRIUM The right atrial size is mildly dilated. ATRIAL SEPTUM The interatrial septum not well visualized. AORTA The aortic root and proximal ascending aorta are not well visualized. MITRAL VALVE Trace mitral valve regurgitation. AORTIC VALVE No aortic valve stenosis or regurgitation. TRICUSPID VALVE No tricuspid regurgitation. PULMONARY VALVE No pulmonary valve regurgitation or stenosis. VESSELS The inferior vena cava was not well visualized. PERICARDIUM No pericardial effusion. Javier Larose MD, FACC, [facility] (Electronically Signed) Final Date:17 November 2017 16:56
--- NOTE | 2017-11-17 17:20 | HHI.PR ---
Subjective Remarks Patient in nad. Patient denies cp, sob. He is still coughing less sputum production. no fever or chills. overnight. He was ambulating Objective Vitals Vital Signs Date Time Temp Pulse Resp B/P (MAP) Pulse Ox O2 Delivery O2 Flow Rate FiO2 11/17/17 16:10 66 11/17/17 15:45 98.4 66 16 152/83 (106) 98 11/17/17 15:25 Room Air 11/17/17 12:00 Room Air 11/17/17 12:00 73 11/17/17 12:00 97.7 65 17 130/73 (92) 96 11/17/17 09:59 95 11/17/17 09:00 Room Air 11/17/17 08:00 97.6 55 14 143/73 (96) 95 11/17/17 08:00 68 11/17/17 04:00 97.4 64 20 110/59 (76) 92 11/17/17 03:46 66 11/17/17 03:40 94 11/17/17 00:00 97.9 85 20 138/66 (90) 94 11/16/17 23:59 67 11/16/17 22:55 73 11/16/17 20:29 Room Air 11/16/17 20:00 97.7 64 17 130/70 (90) 95 I/O 11/16/17 11/16/17 11/16/17 11/17/17 11/17/17 11/17/17 07:00 15:00 23:00 07:00 15:00 23:00 Intake Total 240 ml 737.5 ml 1845 ml Output Total 4 ml Balance 236 ml 737.5 ml 1845 ml Intake Oral 240 ml 120 ml 240 ml IV Total 617.5 ml 1605 ml Output Urine Total 4 ml # Voids 6 # Bowel Movements 1 Result Diagram: 11/17/17 0707 11/17/17 0707 Imaging Last Impressions Chest X-Ray 11/16/17 0000 Signed Impressions: Service Date/Time: Thursday, November 16, 2017 12:59 - CONCLUSION: 1. Bibasilar densities likely atelectasis. Tejas Duke MD CT Angiography 11/14/17 1223 Signed Impressions: Service Date/Time: Tuesday, November 14, 2017 14:21 - CONCLUSION: 1. No evidence of pulmonary embolism. 2. Patchy parenchymal infiltrates in both lung bases, left greater than right. 3. Compensated cardiomegaly. Maksim Scanlon MD Objective Remarks GENERAL: Pleasant male awake and oriented appears in nad. CARDIOVASCULAR: Regular rate and rhythm. RESPIRATORY: No accessory muscle use. Clear to auscultation. Breath sounds equal bilaterally. GASTROINTESTINAL: Abdomen soft, non-tender, nondistended. Hepatic and splenic margins not palpable. MUSCULOSKELETAL: Extremities without clubbing, cyanosis, or edema. No obvious deformities. NEUROLOGICAL: Awake and alert. No obvious cranial nerve deficits. Motor grossly within normal limits. Five out of 5 muscle strength in the arms and legs. Normal speech. PSYCHIATRIC: Appropriate mood and affect; insight and judgment normal. 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 Patchy parenchymal infiltrates in both lung bases, left greater than right. Compensated cardiomegaly allergy read. -On zosyn and vanco IV -Duonebs scheduled and as need -O2 supplement keep O2 sat > 94% -Continue on current Solumedrol dose- taper steroids as tolerated (to maintaince dose of 7.5 mg for his vasculitis) -Incentive spirometry -Sputum cultures reviewed normal. Repeat sputum cultures per infectious disease. Also check for MAC -Add Mucinex. Add Tylenol/codeine for persistent cough -Dr. Hodgson ff - PFTs- Consult Pulmonary consult with his vasculitis - may have some form of Interstitial lung disease- - patient not impressive smoking history History of Vasculitis with neuropathy --restart his Lyrica 200 mg q 8 - on prednisone chronic as OP ( 7.5 mg ) currently on IV solumedrol - ff as OP by Dr. Díaz DM type 2 - states good readings at home on Prednisone 7.5 - ff blood sugars- here- expect to be up with IV solumedrol -ADA diet - continue on glipizide 5 mg po bid - start sliding scale insulin - check A1C Hypertension- continue meds- on JULISA/diuretics GERD- on PPI and Carafate History of constipation on Linzess History of Migraine headaches - continue on Imitrex 6 mg sq daily prn - continue psych meds continue all other meds GI prophylaxis: PPI DVT prophylaxis: lovenox/Teds/SCDs Discussed with the patient, nurse, Dr. Hodgson infectious disease Ana Lilia Inman MD Nov 17, 2017 17:20
[2017-11-17] MEDS: ENOXAPARIN SODIUM 40 MG/0.4 ML SYRINGE SQ SCH (17:32)
[2017-11-17] MEDS: VANCOMYCIN INJ 1,750 MG in SODIUM CHLORID 0.9% 500 ML INJ 500 ML IV SCH (17:32)
[2017-11-17] MEDS: DONEPEZIL HCL 5 MG TAB PO SCH (20:52)
[2017-11-17] MEDS: TEMAZEPAM 15 MG CAP PO PRN (23:24)
[2017-11-18] VITALS (10 sets, daily range): BP systolic 134–169; BP diastolic 65–88; PULSE 55–80; RESP 16–22; TEMP 97.4–97.7; O2SAT 92–97
[2017-11-18] MEDS: ACETAMINOPHEN/CODEINE ELIX 120 MG/12 MG/5 ML CUP PO PRN ×4 (01:03→23:26)
[2017-11-18] MEDS: SODIUM CHLOR 0.9% 1000 ML INJ 1,000 ML IV SCH ×3 (02:26→21:00)
[2017-11-18] MEDS: CARBIDOPA/LEVODOPA 25 MG/100 MG TAB PO SCH ×3 (04:55→21:30)
[2017-11-18] MEDS: methylPREDNISolone SOD SUCC 40 MG/1 ML VIAL IV PUSH SCH ×3 (04:55→21:30)
[2017-11-18] MEDS: PIPERACIL-TAZO 4.5 GM PREMIX 100 ML IV SCH ×4 (04:58→22:31)
[2017-11-18] MEDS: RESP: ALBUTEROL 2.5 MG/IPRATROPIUM 0.5 MG NEB (SCH) NEB ×3 (08:25→16:00)
[2017-11-18] MEDS: SUCRALFATE 1 GM TAB PO SCH ×4 (08:29→21:30)
[2017-11-18] MEDS: PREGABALIN 100 MG CAP PO SCH ×3 (08:30→18:09)
[2017-11-18] MEDS: CELECOXIB 200 MG CAP PO SCH (08:30)
[2017-11-18] MEDS: LIPASE/PROTEASE/AMYLASE (24,000/76,000/120,000) CAP PO SCH ×3 (08:30→18:09)
[2017-11-18] MEDS: DOCUSATE SODIUM 50 MG/SENNA 8.6 MG TAB PO SCH ×2 (08:30→21:30)
[2017-11-18] MEDS: TRIAMTERENE/HCTZ 37.5 MG/25 MG TAB PO SCH (08:30)
[2017-11-18] MEDS: PANTOPRAZOLE SOD 40 MG DELAYED RELEASE TAB PO SCH (08:30)
[2017-11-18] MEDS: glipiZIDE 5 MG TAB PO SCH ×2 (08:30→17:00)
[2017-11-18] MEDS: DULoxetine HCl DR 60 MG CAP PO SCH (08:30)
[2017-11-18] MEDS: guaiFENesin E.R. 600 MG TAB PO SCH ×2 (08:30→21:30)
[2017-11-18] MEDS: TOPIRAMATE 25 MG TAB PO SCH ×2 (08:31→21:30)
[2017-11-18] MEDS: ESCITALOPRAM OXALATE 10 MG TAB PO SCH (08:31)
[2017-11-18] MEDS: LISINOPRIL 10 MG TAB PO SCH (08:31)
[2017-11-18] MEDS: ASPIRIN EC 81 MG TABEC PO SCH (08:31)
[2017-11-18] MEDS: INSULIN ASPART SUPPLEMENTAL SCALE SQ SCH ×2 (08:32→12:00)
[2017-11-18] MEDS: SODIUM CHLORIDE 0.9% FLUSH 10 ML FLUSH IV FLUSH SCH ×2 (08:32→21:31)
[2017-11-18] MEDS: LINZESS 145 MCG PO SCH (08:33)
[2017-11-18] MEDS ORDERED: VANCOMYCIN INJ 1,750 MG in SODIUM CHLORID 0.9% 500 ML INJ 500 ML IV SCH (11:00)
[2017-11-18 14:49] LABS: MYCOPLASMA PNEUMONIAE IGG Positive (Negative); MYCOPLASMA PNEUMONIAE IGM Negative (Negative)
--- NOTE | 2017-11-18 15:39 | HHI.IDPN ---
Note Infectious Disease Note Patient says he does not feel good. Reports episode of lightheadedness. His blood sugar was noted to be low. He also notes tingling sensation in his fingers slight numbness in his feet. Breathing appears a little bit labored. Still has profuse cough. No hemoptysis. Afebrile. Sputum culture has normal carson. Sputum AFB smear negative. Mycoplasma IgG positive. Suggesting past infection or exposure. 2D echocardiogram reveals trace mitral regurgitation. 77-year-old white male who presented to the emergency department with respiratory symptoms. The patient does have cough and sputum production and shortness of breath for about a month. He was treated with 3 courses of antibiotics including Levaquin, doxycycline, and Z-DASHA. He did not improve and presented to emergency department. The patient has been on prednisone for vasculitis. He takes the prednisone daily. The patient and his report that they traveled from [place] about a month ago and when they got on the airplane to return to home from [place], that virtually everyone on the airplane was coughing. The patient had no problems with fever or chills, however. The patient states that he has had difficulty lying flat since he started having the problem and he has been coughing all day since the coughing began. PAST MEDICAL HISTORY: Depression, hyperlipidemia, allergic rhinitis, hypertension, gastroesophageal reflux disease, migraines, vasculitis, cerebrovascular accident in 2009 with minimal left lower extremity weakness, chronic low back pain, spinal stimulator which was replaced last year by fusion surgery, carotid artery surgery, left lower leg surgery. ALLERGIES: NO KNOWN DRUG ALLERGIES. MEDICATIONS: Antibiotics Vancomycin. Piperacillin/tazobactam. Current Medications Medications (Trade) Dose Ordered Sig/Nilsa Route PRN Reason Start Time Stop Time Status Last Admin Dose Admin Aspirin (Ecotrin Ec) 81 mg DAILY PO 11/15/17 09:00 11/18/17 08:31 Carbidopa/Levodopa (Sinemet 25-100 Mg) 1 tab Q8HR PO 11/14/17 22:00 11/18/17 14:00 Celecoxib (CeleBREX) 200 mg DAILY PO 11/15/17 09:00 11/18/17 08:30 Donepezil HCl (Aricept) 10 mg HS PO 11/14/17 21:00 11/17/17 20:52 Duloxetine HCl (Cymbalta Dr) 60 mg DAILY PO 11/15/17 09:00 11/18/17 08:30 Escitalopram Oxalate (Lexapro) 10 mg DAILY PO 11/15/17 09:00 11/18/17 08:31 Acetaminophen/ Hydrocodone Bitart (Mora 5-325 Mg) 1 tab Q6H PRN PO PAIN 1-10 11/14/17 16:00 Lisinopril (Prinivil) 10 mg DAILY PO 11/15/17 09:00 11/18/17 08:31 Sucralfate (Carafate) 1 gm QID PO 11/14/17 18:00 11/18/17 13:16 Temazepam (Restoril) 30 mg HS PRN PO INSOMNIA 11/14/17 16:00 11/17/17 23:24 Topiramate (Topamax) 25 mg BID PO 11/14/17 21:00 11/18/17 08:31 Triamterene/HCTZ (Maxzide 37.5-25 Mg) 0.5 tab DAILY PO 11/15/17 09:00 11/18/17 08:30 Pantoprazole Sodium (Protonix) 40 mg DAILY PO 11/15/17 09:00 11/18/17 08:30 Patient Own Medication PT OWN MED: MOVAN... DAILY PO 11/15/17 09:00 Future Hold Amylase/Lipase/ Protease (Creon 24-76-120) 1 cap TIDPC PO 11/14/17 18:30 11/18/17 13:16 Piperacillin Sod/ Tazobactam Sod 100 ml @ 200 mls/hr Q6H IV 11/14/17 22:00 11/18/17 08:32 Pharmacy Profile Note 0 ml @ 0 mls/hr UNSCH OTHER 11/14/17 16:15 Sodium Chloride 1,000 ml @ 100 mls/hr Q10H IV 11/14/17 17:00 11/18/17 13:45 Sodium Chloride (NS Flush) 2 ml UNSCH PRN IV FLUSH FLUSH AFTER USING IV ACCESS 11/14/17 16:15 Sodium Chloride (NS Flush) 2 ml BID IV FLUSH 11/14/17 21:00 11/16/17 08:39 Acetaminophen (Tylenol) 650 mg Q4H PRN PO TEMP > 100.4 11/14/17 16:15 Ondansetron HCl (Zofran Inj) 4 mg Q6H PRN IVP NAUSEA OR VOMITING 11/14/17 16:15 Enoxaparin Sodium (Lovenox Inj) 40 mg Q24H SQ 11/14/17 18:00 11/17/17 17:32 Naloxone HCl (Narcan Inj) 0.4 mg UNSCH PRN IV PUSH SEE LABEL COMMENTS 11/14/17 16:15 Senna/Docusate Sodium (Mili-Colace) 1 tab BID PO 11/14/17 21:00 11/18/17 08:30 Magnesium Hydroxide (Milk Of Magnesia Liq) 30 ml Q12H PRN PO Mild constipation 11/14/17 16:15 Sennosides (Senokot) 17.2 mg Q12H PRN PO Moderate constipation 11/14/17 16:15 Bisacodyl (Dulcolax Supp) 10 mg DAILY PRN RECTAL SEVERE CONSITIPATION 11/14/17 16:15 Lactulose (Lactulose Liq) 30 ml DAILY PRN PO SEVERE CONSITIPATION 11/14/17 16:15 Albuterol/ Ipratropium (Duoneb Neb) 1 ampule Q4HR WHILE AWAKE NEB NEB 11/14/17 20:00 11/18/17 12:19 Albuterol/ Ipratropium (Duoneb Neb) 1 ampule Q2HR NEB PRN NEB sob/wheezing 11/14/17 16:30 11/17/17 23:10 Patient Own Medication PT OWN MED: LINZ... DAILY PO 11/15/17 09:00 11/18/17 08:33 Pregabalin (Lyrica) 200 mg TID PO 11/15/17 18:00 11/18/17 13:16 Sumatriptan Succinate (Imitrex Inj) 6 mg DAILY PRN SQ MIGRAIN HEADACHE 11/15/17 16:30 11/16/17 20:14 Glipizide (Glucotrol) 5 mg BID@08,17 PO 11/15/17 17:00 11/18/17 08:30 Dextrose (D50w (Vial) Inj) 50 ml UNSCH PRN IV PUSH HYPOGLYCEMIA-SEE COMMENTS 11/15/17 16:45 Glucagon (Glucagon Inj) 1 mg UNSCH PRN OTHER HYPOGLYCEMIA-SEE COMMENTS 11/15/17 16:45 Guaifenesin/ Dextromethorphan (Robitussin Dm 200-20 Mg/10 ml Liq) 10 ml Q6H PRN PO cough 11/16/17 12:00 Methylprednisolone Sodium Succinate (SoluMEDROL INJ) 40 mg Q8HR IV PUSH 11/16/17 22:00 11/18/17 13:59 Sumatriptan Succinate (Imitrex Inj) 6 mg UNSCH PRN SQ MIGRAINE HEADACHE intractable 11/16/17 18:00 Acetaminophen/ Codeine Phosphate (Tylenol - Codeine 120-12 Liq) 5 ml Q4H PRN PO persistent cough 11/16/17 19:00 11/18/17 09:16 Guaifenesin (Mucinex Er) 600 mg BID PO 11/16/17 21:00 11/18/17 08:30 Vancomycin HCl 1750 mg/Sodium Chloride 517.5 ml @ 250 mls/hr Q18H IV 11/18/17 11:00 11/18/17 13:16 Miscellaneous Information SPECIFIC LAB TO BE BRITTANY... ONCE ONCE .XX 11/19/17 22:45 11/19/17 22:46 SOCIAL HISTORY: The patient is . He smokes occasional cigar. Occasional social alcohol. No substance abuse. OBJECTIVE: Vital Signs Date Time Temp Pulse Resp B/P (MAP) Pulse Ox O2 Delivery O2 Flow Rate FiO2 11/18/17 14:05 Room Air 11/18/17 12:28 97.5 67 20 169/81 (110) 94 11/18/17 12:10 Room Air 11/18/17 09:51 Room Air 11/18/17 09:49 80 11/18/17 08:27 97 21 11/18/17 08:00 97.4 55 20 140/67 (91) 94 11/18/17 04:00 67 11/18/17 04:00 97.4 63 16 134/65 (88) 92 11/18/17 00:00 63 11/18/17 00:00 97.6 73 16 147/83 (104) 94 11/17/17 23:14 97 11/17/17 20:00 68 11/17/17 19:50 98.3 77 16 141/85 (103) 97 11/17/17 19:50 98 11/17/17 16:10 66 11/17/17 16:00 97.3 74 16 166/74 (104) 94 11/17/17 15:45 98.4 66 16 152/83 (106) 98 Laboratory Tests Test 11/17/17 07:07 White Blood Count 8.7 TH/MM3 Red Blood Count 4.09 MIL/MM3 Hemoglobin 12.8 GM/DL Hematocrit 37.8 % Mean Corpuscular Volume 92.3 FL Mean Corpuscular Hemoglobin 31.4 PG Mean Corpuscular Hemoglobin Concent 34.0 % Red Cell Distribution Width 15.0 % Platelet Count 154 TH/MM3 Mean Platelet Volume 8.5 FL Neutrophils (%) (Auto) 85.2 % Lymphocytes (%) (Auto) 8.8 % Monocytes (%) (Auto) 5.9 % Eosinophils (%) (Auto) 0.0 % Basophils (%) (Auto) 0.1 % Neutrophils # (Auto) 7.4 TH/MM3 Lymphocytes # (Auto) 0.8 TH/MM3 Monocytes # (Auto) 0.5 TH/MM3 Eosinophils # (Auto) 0.0 TH/MM3 Basophils # (Auto) 0.0 TH/MM3 CBC Comment DIFF FINAL Differential Comment Laboratory Tests Test 11/17/17 07:07 Blood Urea Nitrogen 22 MG/DL Creatinine 1.27 MG/DL Random Glucose 177 MG/DL Calcium Level 8.0 MG/DL Sodium Level 142 MEQ/L Potassium Level 4.0 MEQ/L Chloride Level 110 MEQ/L Carbon Dioxide Level 22.8 MEQ/L Anion Gap 9 MEQ/L Estimat Glomerular Filtration Rate 55 ML/MIN Microbiology Date/Time Source Procedure Growth Status 11/16/17 13:39 Sputum Expectorated Sputum Acid Fast Stain - Final NO ACID FAST BACILLI SEEN Resulted 11/16/17 13:39 Sputum Expectorated Sputum Mycobacterial Culture Pending Resulted 11/16/17 13:39 Sputum Expectorated Sputum Gram Stain - Final Complete 11/16/17 13:39 Sputum Expectorated Sputum Sputum Culture - Final HEAVY GROWTH NORMAL RESPIRATORY CARSON Complete 11/16/17 23:02 Urine Random Urine Legionella Antigen - Final PRESUMPTIVE NEGATIVE FOR LEGIONELLA P... Complete 11/16/17 23:02 Urine Random Urine Streptococcus pneumoniae Antigen (M - Final PRESUMPTIVE NEGATIVE FOR STREPTOCOCCU... Complete IMAGING: Chest X-Ray 11/16/17 0000 Signed Impressions: Service Date/Time: Thursday, November 16, 2017 12:59 - CONCLUSION: 1. Bibasilar densities likely atelectasis. Tejas Duke MD CT Angiography 11/14/17 1223 Signed Impressions: Service Date/Time: Tuesday, November 14, 2017 14:21 - CONCLUSION: 1. No evidence of pulmonary embolism. 2. Patchy parenchymal infiltrates in both lung bases, left greater than right. 3. Compensated cardiomegaly. Maksim Scanlon MD PHYSICAL EXAMINATION: GENERAL: Awake and alert. Looks somewhat fatigued. HEENT: The head is atraumatic. Extraocular movements grossly intact, pupils reactive to light. No icterus. OROPHARYNX: Moist mucosa. No lesions. NECK: Supple without adenopathy. LUNGS: Coarse bilateral rhonchi persist. HEART: Irregular rate and rhythm. No murmurs, rubs, or gallops. ABDOMEN: Bowel sounds present, soft, no tenderness. EXTREMITIES: No clubbing, cyanosis, or edema. No calf tenderness. SKIN: No rash. Red hue to the skin of the upper back. NEUROLOGIC: No gross focal findings. PSYCHIATRIC: Patient is calm and cooperative. IMPRESSION: 1. Pneumonia. ? etiology. Patient with respiratory symptoms with cough and dyspnea on exertion and CT scan shows patchy focal infiltrates in both lung bases. Chest x-ray no looks like atelectasis. Cultures negative so far. This pulmonary presentation could be autoimmune in etiology. 2. Failed outpatient treatment with oral antibiotic; doxycycline, Levaquin, and azithromycin. 3. Acute kidney disease, mild. RECOMMENDATIONS: 1. Continue piperacillin/tazobactam. 2. Stop vancomycin. 3. Stat azithromycin. 4. Obtain sedimentation rate, ZANA, prolactin level, LDH level. 5. Monitor clinical response. Mack Hodgson MD Nov 18, 2017 15:39
[2017-11-18] MEDS: AZITHROMYCIN INJ 500 MG in SODIUM CHLOR 0.9% 250 ML INJ 250 ML IV SCH (16:29)
--- NOTE | 2017-11-18 17:19 | HHI.PR ---
Subjective Remarks The patient was seen earlier today. Says he did sleep better last night. Less cough. No nausea or vomiting no diarrhea or constipation. Noted with hypoglycemia after he received 2 units of insulin. Continue is doing No fever or chills overnight. The patient is with multiple questions all answered to the best of my ability. Objective Vitals Vital Signs Date Time Temp Pulse Resp B/P (MAP) Pulse Ox O2 Delivery O2 Flow Rate FiO2 11/18/17 16:05 Room Air 11/18/17 16:00 97.7 60 20 153/88 (109) 95 11/18/17 14:05 Room Air 11/18/17 12:28 97.5 67 20 169/81 (110) 94 11/18/17 12:10 Room Air 11/18/17 12:00 67 11/18/17 09:51 Room Air 11/18/17 09:49 80 11/18/17 08:27 97 21 11/18/17 08:00 97.4 55 20 140/67 (91) 94 11/18/17 04:00 67 11/18/17 04:00 97.4 63 16 134/65 (88) 92 11/18/17 00:00 63 11/18/17 00:00 97.6 73 16 147/83 (104) 94 11/17/17 23:14 97 11/17/17 20:00 68 11/17/17 19:50 98.3 77 16 141/85 (103) 97 11/17/17 19:50 98 I/O 11/17/17 11/17/17 11/17/17 11/18/17 11/18/17 11/18/17 07:00 15:00 23:00 07:00 15:00 23:00 Intake Total 1845 ml 1237.5 ml 1876 ml Balance 1845 ml 1237.5 ml 1876 ml Intake Oral 240 ml 720 ml 240 ml IV Total 1605 ml 517.5 ml 1636 ml # Voids 6 4 1 # Bowel Movements 1 2 0 Result Diagram: 11/17/17 0707 11/17/17 0707 Imaging Last Impressions Chest X-Ray 11/16/17 0000 Signed Impressions: Service Date/Time: Thursday, November 16, 2017 12:59 - CONCLUSION: 1. Bibasilar densities likely atelectasis. Tejas Duke MD CT Angiography 11/14/17 1223 Signed Impressions: Service Date/Time: Tuesday, November 14, 2017 14:21 - CONCLUSION: 1. No evidence of pulmonary embolism. 2. Patchy parenchymal infiltrates in both lung bases, left greater than right. 3. Compensated cardiomegaly. Maksim Scanlon MD Objective Remarks GENERAL: Pleasant male awake and oriented appears in nad. CARDIOVASCULAR: Regular rate and rhythm. RESPIRATORY: No accessory muscle use. Clear to auscultation. Breath sounds equal bilaterally. GASTROINTESTINAL: Abdomen soft, non-tender, nondistended. Hepatic and splenic margins not palpable. MUSCULOSKELETAL: Extremities without clubbing, cyanosis, or edema. No obvious deformities. NEUROLOGICAL: Awake and alert. No obvious cranial nerve deficits. Motor grossly within normal limits. Five out of 5 muscle strength in the arms and legs. Normal speech. PSYCHIATRIC: Appropriate mood and affect; insight and judgment normal. 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 Patchy parenchymal infiltrates in both lung bases, left greater than right. Compensated cardiomegaly allergy read. -On zosyn and vanco IV -Duonebs scheduled and as need -O2 supplement keep O2 sat > 94% -Continue on current Solumedrol dose- taper steroids as tolerated (to maintaince dose of 7.5 mg for his vasculitis) -Incentive spirometry -Sputum cultures reviewed normal. Repeat sputum cultures are negative. Pneumococcal and Legionella antigen in the urine are negative as well. Also check for MAC -Add Mucinex. Add Tylenol/codeine for persistent cough -Dr. Hodgson ff - PFTs- Consult Pulmonary consult with his vasculitis - may have some form of Interstitial lung disease- - patient not impressive smoking history History of Vasculitis with neuropathy --restart his Lyrica 200 mg q 8 - on prednisone chronic as OP ( 7.5 mg ) currently on IV solumedrol - ff as OP by Dr. Díaz DM type 2 - states good readings at home on Prednisone 7.5 - ff blood sugars- here- expect to be up with IV solumedrol -ADA diet - continue on glipizide 5 mg po bid - start sliding scale insulin - check A1C Hypertension- continue meds- on JULISA/diuretics GERD- on PPI and Carafate History of constipation on Linzess History of Migraine headaches - continue on Imitrex 6 mg sq daily prn - continue psych meds continue all other meds GI prophylaxis: PPI DVT prophylaxis: lovenox/Teds/SCDs Discussed with the patient, nurse, Dr. Hodgson infectious disease Ana Lilia Inman MD Nov 18, 2017 17:19
--- NOTE | 2017-11-18 17:32 | HHI.PR ---
Subjective Remarks alert on o2 NO DISTRESS Objective Vital Signs Date Time Temp Pulse Resp B/P (MAP) Pulse Ox O2 Delivery O2 Flow Rate FiO2 11/18/17 16:05 Room Air 11/18/17 16:00 97.7 60 20 153/88 (109) 95 11/18/17 14:05 Room Air 11/18/17 12:28 97.5 67 20 169/81 (110) 94 11/18/17 12:10 Room Air 11/18/17 12:00 67 11/18/17 09:51 Room Air 11/18/17 09:49 80 11/18/17 08:27 97 21 11/18/17 08:00 97.4 55 20 140/67 (91) 94 11/18/17 04:00 67 11/18/17 04:00 97.4 63 16 134/65 (88) 92 11/18/17 00:00 63 11/18/17 00:00 97.6 73 16 147/83 (104) 94 11/17/17 23:14 97 11/17/17 20:00 68 11/17/17 19:50 98.3 77 16 141/85 (103) 97 11/17/17 19:50 98 I/O 11/17/17 11/17/17 11/17/17 11/18/17 11/18/17 11/18/17 07:00 15:00 23:00 07:00 15:00 23:00 Intake Total 1845 ml 1237.5 ml 1876 ml 1830 ml Balance 1845 ml 1237.5 ml 1876 ml 1830 ml Intake Oral 240 ml 720 ml 240 ml 1830 ml IV Total 1605 ml 517.5 ml 1636 ml # Voids 6 4 1 5 # Bowel Movements 1 2 0 Result Diagram: 11/17/17 0707 11/17/17 0707 Objective Remarks GENERAL: SKIN: Warm and dry. HEAD: Atraumatic. Normocephalic. EYES: Pupils equal and round. No scleral icterus. No injection or drainage. ENT: No nasal bleeding or discharge. Mucous membranes pink and moist. NECK: Trachea midline. No JVD. CARDIOVASCULAR: Regular rate and rhythm. RESPIRATORY: No accessory muscle use. Clear to auscultation. Breath sounds equal bilaterally. GASTROINTESTINAL: Abdomen soft, non-tender, nondistended. Hepatic and splenic margins not palpable. MUSCULOSKELETAL: Extremities without clubbing, cyanosis, or edema. No obvious deformities. NEUROLOGICAL: Awake and alert. No obvious cranial nerve deficits. Motor grossly within normal limits. Five out of 5 muscle strength in the arms and legs. Normal speech. PSYCHIATRIC: Appropriate mood and affect; insight and judgment normal. Assessment and Plan Assessment and Plan RESPIRATORY FAILURE PNA PLAN O2 ANTIBX F/U CXRAY Ramos Beasley MD Nov 18, 2017 17:32
[2017-11-18] MEDS: ENOXAPARIN SODIUM 40 MG/0.4 ML SYRINGE SQ SCH (18:09)
[2017-11-18] MEDS: RESP: ALBUTEROL 2.5 MG/IPRATROPIUM 0.5 MG NEB (PRN) NEB ×2 (20:31→23:40)
[2017-11-18] MEDS: DONEPEZIL HCL 5 MG TAB PO SCH (21:00)
[2017-11-18] MEDS: TEMAZEPAM 15 MG CAP PO PRN (23:27)
[2017-11-19] VITALS (8 sets, daily range): BP systolic 110–152; BP diastolic 62–92; PULSE 55–82; RESP 12–20; TEMP 97.1–98.2; O2SAT 92–97
[2017-11-19] MEDS: SODIUM CHLOR 0.9% 1000 ML INJ 1,000 ML IV SCH ×2 (04:02→16:12)
[2017-11-19] MEDS: PIPERACIL-TAZO 4.5 GM PREMIX 100 ML IV SCH ×2 (04:03→09:43)
[2017-11-19] MEDS: ACETAMINOPHEN/CODEINE ELIX 120 MG/12 MG/5 ML CUP PO PRN ×5 (04:09→20:59)
[2017-11-19] MEDS: methylPREDNISolone SOD SUCC 40 MG/1 ML VIAL IV PUSH SCH ×2 (06:12→21:00)
[2017-11-19] MEDS: CARBIDOPA/LEVODOPA 25 MG/100 MG TAB PO SCH ×3 (06:12→21:00)
--- NOTE | 2017-11-19 07:32 | RADRPT ---
EXAM DATE/TIME: 11/19/2017 06:48 [facility] COMPARISON: CHEST SINGLE AP, November 16, 2017, 12:59. INDICATIONS : Short of breath, cough, and congestion. Evaluate pneumonia MEDICAL HISTORY : CVA,coronary artery disease, Parkinsons disease SURGICAL HISTORY : Appendectomy. Carotid endarterectomy. spinal cord stimulator ENCOUNTER: Subsequent ACUITY: 1 month PAIN SCORE: 0/10 LOCATION: Bilateral chest FINDINGS: Bibasilar airspace disease with subsegmental consolidation on the left has developed since the prior study. In the mid to upper lung dumont are clear. Cardiomediastinal structures are stable. CONCLUSION: Acute bibasilar airspace disease with subsegmental consolidation on the left. Emerson Hyde MD on November 19, 2017 at 7:30 Board Certified Radiologist. This report was verified electronically.
[2017-11-19] MEDS: LISINOPRIL 10 MG TAB PO SCH (08:12)
[2017-11-19] MEDS: ESCITALOPRAM OXALATE 10 MG TAB PO SCH (08:12)
[2017-11-19] MEDS: PANTOPRAZOLE SOD 40 MG DELAYED RELEASE TAB PO SCH (08:12)
[2017-11-19] MEDS: SUCRALFATE 1 GM TAB PO SCH ×4 (08:12→21:00)
[2017-11-19] MEDS: DULoxetine HCl DR 60 MG CAP PO SCH (08:13)
[2017-11-19] MEDS: guaiFENesin E.R. 600 MG TAB PO SCH ×2 (08:13→21:01)
[2017-11-19] MEDS: TOPIRAMATE 25 MG TAB PO SCH ×2 (08:13→21:01)
[2017-11-19] MEDS: DOCUSATE SODIUM 50 MG/SENNA 8.6 MG TAB PO SCH ×2 (08:13→21:00)
[2017-11-19] MEDS: CELECOXIB 200 MG CAP PO SCH (08:13)
[2017-11-19] MEDS: ASPIRIN EC 81 MG TABEC PO SCH (08:13)
[2017-11-19] MEDS: PREGABALIN 100 MG CAP PO SCH ×3 (08:13→17:30)
[2017-11-19] MEDS: glipiZIDE 5 MG TAB PO SCH ×2 (08:13→16:08)
[2017-11-19] MEDS: TRIAMTERENE/HCTZ 37.5 MG/25 MG TAB PO SCH (08:13)
[2017-11-19] MEDS: LINZESS 145 MCG PO SCH (08:14)
[2017-11-19] MEDS: SODIUM CHLORIDE 0.9% FLUSH 10 ML FLUSH IV FLUSH SCH ×2 (08:14→21:02)
[2017-11-19] MEDS: LIPASE/PROTEASE/AMYLASE (24,000/76,000/120,000) CAP PO SCH ×3 (08:31→17:30)
[2017-11-19] MEDS: RESP: ALBUTEROL 2.5 MG/IPRATROPIUM 0.5 MG NEB (PRN) NEB ×2 (09:58→13:08)
[2017-11-19] MEDS ORDERED: RESP: ALBUTEROL 2.5 MG/IPRATROPIUM 0.5 MG NEB (SCH) NEB ONE (12:45)
--- NOTE | 2017-11-19 14:15 | HHI.IDPN ---
Note Infectious Disease Note Patient says he does not feel good. States that his neck feels thick. Feels that his neck tissues are swollen. He is on room air. He has no itching of the skin. The skin appears diffusely reddened. He denies itching. The tingling sensation in his hands and feet has resolved. Still has profuse cough. No fever. ZANA negative. Sedimentation rate 2. Prolactin level not elevated. LDH mildly increased. Sputum culture has normal carson. Sputum AFB smear negative. Mycoplasma IgG positive. Suggesting past infection or exposure. 2D echocardiogram reveals trace mitral regurgitation. 77-year-old white male who presented to the emergency department with respiratory symptoms. The patient does have cough and sputum production and shortness of breath for about a month. He was treated with 3 courses of antibiotics including Levaquin, doxycycline, and Z-DASHA. He did not improve and presented to emergency department. The patient has been on prednisone for vasculitis. He takes the prednisone daily. The patient and his report that they traveled from [place] about a month ago and when they got on the airplane to return to home from [place], that virtually everyone on the airplane was coughing. The patient had no problems with fever or chills, however. The patient states that he has had difficulty lying flat since he started having the problem and he has been coughing all day since the coughing began. PAST MEDICAL HISTORY: Depression, hyperlipidemia, allergic rhinitis, hypertension, gastroesophageal reflux disease, migraines, vasculitis, cerebrovascular accident in 2009 with minimal left lower extremity weakness, chronic low back pain, spinal stimulator which was replaced last year by fusion surgery, carotid artery surgery, left lower leg surgery. ALLERGIES: NO KNOWN DRUG ALLERGIES. MEDICATIONS: Antibiotics Azithromycin. Piperacillin/tazobactam. Current Medications Medications (Trade) Dose Ordered Sig/Nilsa Route PRN Reason Start Time Stop Time Status Last Admin Dose Admin Aspirin (Ecotrin Ec) 81 mg DAILY PO 11/15/17 09:00 11/19/17 08:13 Carbidopa/Levodopa (Sinemet 25-100 Mg) 1 tab Q8HR PO 11/14/17 22:00 11/19/17 13:18 Celecoxib (CeleBREX) 200 mg DAILY PO 11/15/17 09:00 11/19/17 08:13 Donepezil HCl (Aricept) 10 mg HS PO 2/25/18 21:00 11/18/17 21:00 Duloxetine HCl (Cymbalta Dr) 60 mg DAILY PO 11/15/17 09:00 11/19/17 08:13 Escitalopram Oxalate (Lexapro) 10 mg DAILY PO 11/15/17 09:00 11/19/17 08:12 Acetaminophen/ Hydrocodone Bitart ([place] 5-325 Mg) 1 tab Q6H PRN PO PAIN 1-10 11/14/17 16:00 Lisinopril (Prinivil) 10 mg DAILY PO 11/15/17 09:00 11/19/17 08:12 Sucralfate (Carafate) 1 gm QID PO 11/14/17 18:00 11/19/17 12:18 Temazepam (Restoril) 30 mg HS PRN PO INSOMNIA 11/14/17 16:00 11/18/17 23:27 Topiramate (Topamax) 25 mg BID PO 11/14/17 21:00 11/19/17 08:13 Triamterene/HCTZ (Maxzide 37.5-25 Mg) 0.5 tab DAILY PO 11/15/17 09:00 11/19/17 08:13 Pantoprazole Sodium (Protonix) 40 mg DAILY PO 11/15/17 09:00 11/19/17 08:12 Patient Own Medication PT OWN MED: MOVAN... DAILY PO 11/15/17 09:00 Future Hold Amylase/Lipase/ Protease (Creon 24-76-120) 1 cap TIDPC PO 11/14/17 18:30 11/19/17 13:18 Sodium Chloride 1,000 ml @ 100 mls/hr Q10H IV 11/14/17 17:00 11/19/17 04:02 Sodium Chloride (NS Flush) 2 ml UNSCH PRN IV FLUSH FLUSH AFTER USING IV ACCESS 11/14/17 16:15 Sodium Chloride (NS Flush) 2 ml BID IV FLUSH 11/14/17 21:00 11/18/17 21:31 Acetaminophen (Tylenol) 650 mg Q4H PRN PO TEMP > 100.4 11/14/17 16:15 Ondansetron HCl (Zofran Inj) 4 mg Q6H PRN IVP NAUSEA OR VOMITING 11/14/17 16:15 Enoxaparin Sodium (Lovenox Inj) 40 mg Q24H SQ 11/14/17 18:00 11/18/17 18:09 Naloxone HCl (Narcan Inj) 0.4 mg UNSCH PRN IV PUSH SEE LABEL COMMENTS 11/14/17 16:15 Senna/Docusate Sodium (Mili-Colace) 1 tab BID PO 11/14/17 21:00 11/19/17 08:13 Magnesium Hydroxide (Milk Of Magnesia Liq) 30 ml Q12H PRN PO Mild constipation 11/14/17 16:15 Sennosides (Senokot) 17.2 mg Q12H PRN PO Moderate constipation 11/14/17 16:15 Bisacodyl (Dulcolax Supp) 10 mg DAILY PRN RECTAL SEVERE CONSITIPATION 11/14/17 16:15 Lactulose (Lactulose Liq) 30 ml DAILY PRN PO SEVERE CONSITIPATION 11/14/17 16:15 Albuterol/ Ipratropium (Duoneb Neb) 1 ampule Q2HR NEB PRN NEB sob/wheezing 11/14/17 16:30 11/19/17 13:08 Patient Own Medication PT OWN MED: LINZ... DAILY PO 11/15/17 09:00 11/19/17 08:14 Pregabalin (Lyrica) 200 mg TID PO 11/15/17 18:00 11/19/17 12:18 Sumatriptan Succinate (Imitrex Inj) 6 mg DAILY PRN SQ MIGRAIN HEADACHE 11/15/17 16:30 11/16/17 20:14 Glipizide (Glucotrol) 5 mg BID@08,17 PO 11/15/17 17:00 11/19/17 08:13 Dextrose (D50w (Vial) Inj) 50 ml UNSCH PRN IV PUSH HYPOGLYCEMIA-SEE COMMENTS 11/15/17 16:45 Glucagon (Glucagon Inj) 1 mg UNSCH PRN OTHER HYPOGLYCEMIA-SEE COMMENTS 11/15/17 16:45 Guaifenesin/ Dextromethorphan (Robitussin Dm 200-20 Mg/10 ml Liq) 10 ml Q6H PRN PO cough 11/16/17 12:00 Sumatriptan Succinate (Imitrex Inj) 6 mg UNSCH PRN SQ MIGRAINE HEADACHE intractable 11/16/17 18:00 Acetaminophen/ Codeine Phosphate (Tylenol - Codeine 120-12 Liq) 5 ml Q4H PRN PO persistent cough 11/16/17 19:00 11/19/17 12:22 Guaifenesin (Mucinex Er) 600 mg BID PO 11/16/17 21:00 11/19/17 08:13 Azithromycin 500 mg/Sodium Chloride 250 ml @ 250 mls/hr Q24H IV 11/18/17 16:00 11/18/17 16:29 Methylprednisolone Sodium Succinate (SoluMEDROL INJ) 40 mg BID IV PUSH 11/19/17 21:00 UNV Albuterol/ Ipratropium (Duoneb Neb) 1 ampule Q4HR WHILE AWAKE NEB NEB 11/19/17 16:00 UNV Albuterol/ Ipratropium (Duoneb Neb) 1 ampule ONCE ONCE NEB 11/19/17 12:45 11/19/17 12:46 UNV SOCIAL HISTORY: The patient is . He smokes occasional cigar. Occasional social alcohol. No substance abuse. OBJECTIVE: Vital Signs Date Time Temp Pulse Resp B/P (MAP) Pulse Ox O2 Delivery O2 Flow Rate FiO2 11/19/17 12:00 97.1 82 20 110/81 (91) 94 11/19/17 08:00 97.1 59 20 137/92 (107) 95 11/19/17 07:00 Room Air 11/19/17 04:00 68 11/19/17 04:00 Room Air 11/19/17 04:00 97.8 55 20 128/62 (84) 92 11/19/17 00:00 73 11/19/17 00:00 Room Air 11/19/17 00:00 98.2 55 20 145/74 (97) 92 11/18/17 20:33 96 21 11/18/17 20:00 Room Air 11/18/17 20:00 97.7 68 22 157/76 (103) 96 11/18/17 20:00 72 11/18/17 16:05 Room Air 11/18/17 16:00 65 11/18/17 16:00 97.7 60 20 153/88 (109) 95 Laboratory Tests Test 11/18/17 16:15 Erythrocyte Sedimentation Rate 2 mm/hr Laboratory Tests Test 11/18/17 17:13 Lactate Dehydrogenase 267 U/L Procalcitonin LESS THAN 0.02 ng/mL IMAGING: Chest X-Ray 11/19/17 0600 Signed Impressions: Service Date/Time: Sunday, November 19, 2017 06:48 - CONCLUSION: Acute bibasilar airspace disease with subsegmental consolidation on the left. Emerson Hyde MD Chest X-Ray 11/16/17 0000 Signed Impressions: Service Date/Time: Thursday, November 16, 2017 12:59 - CONCLUSION: 1. Bibasilar densities likely atelectasis. Tejas Duke MD CT Angiography 11/14/17 1223 Signed Impressions: Service Date/Time: Tuesday, November 14, 2017 14:21 - CONCLUSION: 1. No evidence of pulmonary embolism. 2. Patchy parenchymal infiltrates in both lung bases, left greater than right. 3. Compensated cardiomegaly. Maksim Scanlon MD PHYSICAL EXAMINATION: GENERAL: Awake and alert. HEENT: The head is atraumatic. Extraocular movements grossly intact, pupils reactive to light. No icterus. OROPHARYNX: Moist mucosa. No lesions. NECK: Supple without adenopathy. LUNGS: Coarse bilateral rhonchi same. HEART: Irregular rate and rhythm. No murmurs, rubs, or gallops. ABDOMEN: Bowel sounds present, soft, no tenderness. EXTREMITIES: No clubbing, cyanosis, or edema. No calf tenderness. SKIN: Red hue to the skin. No macular rash. NEUROLOGIC: No gross focal findings. PSYCHIATRIC: Patient is calm and cooperative. IMPRESSION: 1. Pneumonia. ? etiology. Patient with respiratory symptoms with cough and dyspnea on exertion and CT scan shows patchy focal infiltrates in both lung bases. Chest x-ray looks like atelectasis. Cultures negative so far. Prolactin level is negative. This is probably non infectious etiology for the lung changes. 2. Failed outpatient treatment with oral antibiotic; doxycycline, Levaquin, and azithromycin. 3. Acute kidney disease, mild. 4. Patient with complaints of swelling of his neck. I am not sure if this is related to antibiotic piperacillin/tazobactam. He has erythematous hue to the skin. RECOMMENDATIONS: 1. Stop piperacillin/tazobactam. 2. Continue azithromycin. This can be changed to oral if pulmonary thinks the patient is stable for discharge. Bronchoscopy can be considered for further workup. Pulmonary following. 3. Monitor the skin changes. Mack Hodgson MD Nov 19, 2017 14:15
[2017-11-19] MEDS: RESP: ALBUTEROL 2.5 MG/IPRATROPIUM 0.5 MG NEB (SCH) NEB ×2 (15:47→19:45)
--- NOTE | 2017-11-19 15:50 | HHI.PR ---
Subjective Remarks alert on o2 NO DISTRESS SLOWLY IMPROVING Objective Vital Signs Date Time Temp Pulse Resp B/P (MAP) Pulse Ox O2 Delivery O2 Flow Rate FiO2 11/19/17 14:00 3.00 11/19/17 12:00 97.1 82 20 110/81 (91) 94 11/19/17 08:00 97.1 59 20 137/92 (107) 95 11/19/17 07:00 Room Air 11/19/17 04:00 68 11/19/17 04:00 Room Air 11/19/17 04:00 97.8 55 20 128/62 (84) 92 11/19/17 00:00 73 11/19/17 00:00 Room Air 11/19/17 00:00 98.2 55 20 145/74 (97) 92 11/18/17 20:33 96 21 11/18/17 20:00 Room Air 11/18/17 20:00 97.7 68 22 157/76 (103) 96 11/18/17 20:00 72 11/18/17 16:05 Room Air 11/18/17 16:00 65 11/18/17 16:00 97.7 60 20 153/88 (109) 95 I/O 11/18/17 11/18/17 11/18/17 11/19/17 11/19/17 11/19/17 07:00 15:00 23:00 07:00 15:00 23:00 Intake Total 1876 ml 1830 ml 100 ml 1100 ml Balance 1876 ml 1830 ml 100 ml 1100 ml Intake Oral 240 ml 1830 ml IV Total 1636 ml 100 ml 1100 ml # Voids 1 5 15 # Bowel Movements 0 Result Diagram: 11/17/17 0707 11/17/17 0707 Objective Remarks GENERAL: SKIN: Warm and dry. HEAD: Atraumatic. Normocephalic. EYES: Pupils equal and round. No scleral icterus. No injection or drainage. ENT: No nasal bleeding or discharge. Mucous membranes pink and moist. NECK: Trachea midline. No JVD. CARDIOVASCULAR: Regular rate and rhythm. RESPIRATORY: No accessory muscle use. Clear to auscultation. Breath sounds equal bilaterally. GASTROINTESTINAL: Abdomen soft, non-tender, nondistended. Hepatic and splenic margins not palpable. MUSCULOSKELETAL: Extremities without clubbing, cyanosis, or edema. No obvious deformities. NEUROLOGICAL: Awake and alert. No obvious cranial nerve deficits. Motor grossly within normal limits. Five out of 5 muscle strength in the arms and legs. Normal speech. PSYCHIATRIC: Appropriate mood and affect; insight and judgment normal. Assessment and Plan Assessment and Plan RESPIRATORY FAILURE PNA PLAN O2 ANTIBX F/U CXRAY INCREASE ACTIVITY Ramos Beasley MD Nov 19, 2017 15:50
[2017-11-19] MEDS: AZITHROMYCIN INJ 500 MG in SODIUM CHLOR 0.9% 250 ML INJ 250 ML IV SCH (16:08)
[2017-11-19] MEDS: ENOXAPARIN SODIUM 40 MG/0.4 ML SYRINGE SQ SCH (17:31)
[2017-11-19] MEDS: DONEPEZIL HCL 5 MG TAB PO SCH (21:03)
--- NOTE | 2017-11-19 22:42 | HHI.PR ---
Subjective Remarks Late entry the patient was seen mammalogist today. Patient was noted ambulating in the hallways. Stting better. says cough syrup helps the most and has less cough. No fever ro chills overnight. No n/v/d/c Objective Vitals Vital Signs Date Time Temp Pulse Resp B/P (MAP) Pulse Ox O2 Delivery O2 Flow Rate FiO2 11/19/17 22:29 97.7 65 12 142/86 (104) 94 11/19/17 16:00 65 11/19/17 16:00 97.2 62 20 152/89 (110) 95 11/19/17 15:47 95 21 11/19/17 14:00 3.00 11/19/17 12:00 97.1 82 20 110/81 (91) 94 11/19/17 12:00 73 11/19/17 08:00 97.1 59 20 137/92 (107) 95 11/19/17 08:00 58 11/19/17 07:00 Room Air 11/19/17 04:00 68 11/19/17 04:00 Room Air 11/19/17 04:00 97.8 55 20 128/62 (84) 92 11/19/17 00:00 73 11/19/17 00:00 Room Air 11/19/17 00:00 98.2 55 20 145/74 (97) 92 I/O 11/18/17 11/18/17 11/18/17 11/19/17 11/19/17 11/19/17 07:00 15:00 23:00 07:00 15:00 23:00 Intake Total 1876 ml 1830 ml 100 ml 1100 ml 100 ml 3130 ml Balance 1876 ml 1830 ml 100 ml 1100 ml 100 ml 3130 ml Intake Oral 240 ml 1830 ml 480 ml IV Total 1636 ml 100 ml 1100 ml 100 ml 2650 ml # Voids 1 5 15 6 # Bowel Movements 0 1 Result Diagram: 11/17/17 0707 11/17/17 07 Imaging Last Impressions Chest X-Ray 11/19/17 0600 Signed Impressions: Service Date/Time: Sunday, November 19, 2017 06:48 - CONCLUSION: Acute bibasilar airspace disease with subsegmental consolidation on the left. Emerson Hyde MD CT Angiography 11/14/17 1223 Signed Impressions: Service Date/Time: Tuesday, November 14, 2017 14:21 - CONCLUSION: 1. No evidence of pulmonary embolism. 2. Patchy parenchymal infiltrates in both lung bases, left greater than right. 3. Compensated cardiomegaly. Maksim Scanlon MD Objective Remarks GENERAL: Pleasant male awake and oriented appears in nad. CARDIOVASCULAR: Regular rate and rhythm. RESPIRATORY: No accessory muscle use. Clear to auscultation. Breath sounds equal bilaterally. GASTROINTESTINAL: Abdomen soft, non-tender, nondistended. Hepatic and splenic margins not palpable. MUSCULOSKELETAL: Extremities without clubbing, cyanosis, or edema. No obvious deformities. NEUROLOGICAL: Awake and alert. No obvious cranial nerve deficits. Motor grossly within normal limits. Five out of 5 muscle strength in the arms and legs. Normal speech. PSYCHIATRIC: Appropriate mood and affect; insight and judgment normal. 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 Patchy parenchymal infiltrates in both lung bases, left greater than right. Compensated cardiomegaly allergy read. -DC zosyn and vanco IV. Continue azithromycin may consider changing to PO. Also might consider bronchoscopy. -Duonebs scheduled and as need -O2 supplement keep O2 sat > 94% -Continue on current Solumedrol dose- taper steroids as tolerated (to maintaince dose of 7.5 mg for his vasculitis) -Incentive spirometry -Sputum cultures reviewed normal. Repeat sputum cultures are negative. Pneumococcal and Legionella antigen in the urine are negative as well. Also check for MAC -Add Mucinex. Add Tylenol/codeine for persistent cough -Dr. Hodgson ff - PFTs- Consult Pulmonary consult with his vasculitis - may have some form of Interstitial lung disease- - patient without impressive smoking history History of Vasculitis with neuropathy --restart his Lyrica 200 mg q 8 - on prednisone chronic as OP ( 7.5 mg ) currently on IV solumedrol - ff as OP by Dr. Díaz DM type 2 - states good readings at home on Prednisone 7.5 - ff blood sugars- here- expect to be up with IV solumedrol -ADA diet - continue on glipizide 5 mg po bid - start sliding scale insulin - check A1C Hypertension- continue meds- on JULISA/diuretics GERD- on PPI and Carafate History of constipation on Linzess History of Migraine headaches - continue on Imitrex 6 mg sq daily prn - continue psych meds continue all other meds GI prophylaxis: PPI DVT prophylaxis: lovenox/Teds/SCDs Discussed with the patient, nurse, Dr. Hodgson infectious disease Ana Lilia Inman MD Nov 19, 2017 22:42
[2017-11-19] MEDS ORDERED: PHARMACY ORDERED LAB ONE (22:45)
[2017-11-19] MEDS: TEMAZEPAM 15 MG CAP PO PRN (23:51)
[2017-11-20] VITALS (11 sets, daily range): BP systolic 122–166; BP diastolic 62–85; PULSE 61–94; RESP 14–20; TEMP 97.1–98; O2SAT 92–95
[2017-11-20] MEDS: CARBIDOPA/LEVODOPA 25 MG/100 MG TAB PO SCH ×3 (05:26→20:40)
[2017-11-20] MEDS: ACETAMINOPHEN/CODEINE ELIX 120 MG/12 MG/5 ML CUP PO PRN ×3 (05:26→20:42)
[2017-11-20] MEDS ORDERED: Acetamin-Codeine 120-12 Liq PO (08:02)
[2017-11-20] MEDS ORDERED: GLIP5 PO (08:02)
[2017-11-20] MEDS ORDERED: AZIT500T2 PO (08:03)
--- NOTE | 2017-11-20 08:03 | HHI.DS ---
Discharge Summary Admission Date Nov 14, 2017 at 15:35 Discharge Date: Nov 20, 2017 Admitting Diagnosis failed outpatient treatment CAP Brief History - From Admission 75 yrs old man with a PMHx of Monoclonal gammopathy, DGD, Hyperlipidemia, CVA, chronic pancreatitis. GERD, came to the ED for further evaluation. Patient with recent history of CAP presents for further evaluation of worsening cough, shortness of breath, breathing difficulties. Patient denies fevers, chills, chest pain, palpitations, abdominal pain, nausea, vomiting. He endorses compliance with doxycycline. He states that prior to the doxycycline he completed a course of Levaquin and a Z-Saad. He endorses occasional cigar smoking. He states that he has a follow-up appointment with his primary care provider tomorrow. Last albuterol treatment overnight. The patient is also on chronic use of prednisone due to vasculitis he follows with rheumatology as outpatient. CBC/BMP: 11/17/17 0707 11/17/17 0707 Significant Findings Laboratory Tests Test 11/17/17 16:45 11/18/17 16:15 11/18/17 17:13 Lactate Dehydrogenase 267 U/L (87-241) PE at Discharge GENERAL: Pleasant male awake and oriented appears in nad. CARDIOVASCULAR: Regular rate and rhythm. RESPIRATORY: No accessory muscle use. Clear to auscultation. Breath sounds equal bilaterally. GASTROINTESTINAL: Abdomen soft, non-tender, nondistended. Hepatic and splenic margins not palpable. MUSCULOSKELETAL: Extremities without clubbing, cyanosis, or edema. No obvious deformities. NEUROLOGICAL: Awake and alert. No obvious cranial nerve deficits. Motor grossly within normal limits. Five out of 5 muscle strength in the arms and legs. Normal speech. PSYCHIATRIC: Appropriate mood and affect; insight and judgment normal. Pt Condition on Discharge: Stable Discharge Disposition: Discharge Home Discharge Time: > 30 minutes Discharge Instructions DIET: Follow Instructions for: Heart Healthy Diet, Diabetic Diet Activities you can perform: Regular-No Restrictions Ana Lilia Inman MD Nov 20, 2017 08:03
[2017-11-20] MEDS ORDERED: GLUCKIT15 (08:13)
[2017-11-20] MEDS ORDERED: GLUCTES12 (08:13)
[2017-11-20] MEDS ORDERED: LANCETS1 MI1 (08:13)
[2017-11-20] MEDS ORDERED: BIOM30MI (08:13)
[2017-11-20] MEDS: RESP: ALBUTEROL 2.5 MG/IPRATROPIUM 0.5 MG NEB (SCH) NEB ×4 (08:51→19:33)
[2017-11-20] MEDS: DULoxetine HCl DR 60 MG CAP PO SCH (09:25)
[2017-11-20] MEDS: TRIAMTERENE/HCTZ 37.5 MG/25 MG TAB PO SCH (09:25)
[2017-11-20] MEDS: methylPREDNISolone SOD SUCC 40 MG/1 ML VIAL IV PUSH SCH ×3 (09:25→20:40)
[2017-11-20] MEDS: LISINOPRIL 10 MG TAB PO SCH (09:25)
[2017-11-20] MEDS: ASPIRIN EC 81 MG TABEC PO SCH (09:25)
[2017-11-20] MEDS: PREGABALIN 100 MG CAP PO SCH ×3 (09:26→17:12)
[2017-11-20] MEDS: TOPIRAMATE 25 MG TAB PO SCH ×2 (09:26→20:40)
[2017-11-20] MEDS: CELECOXIB 200 MG CAP PO SCH (09:26)
[2017-11-20] MEDS: PANTOPRAZOLE SOD 40 MG DELAYED RELEASE TAB PO SCH (09:26)
[2017-11-20] MEDS: DOCUSATE SODIUM 50 MG/SENNA 8.6 MG TAB PO SCH ×2 (09:26→20:41)
[2017-11-20] MEDS: ESCITALOPRAM OXALATE 10 MG TAB PO SCH (09:26)
[2017-11-20] MEDS: glipiZIDE 5 MG TAB PO SCH ×2 (09:26→17:12)
[2017-11-20] MEDS: guaiFENesin E.R. 600 MG TAB PO SCH ×2 (09:26→20:40)
[2017-11-20] MEDS: SUCRALFATE 1 GM TAB PO SCH ×4 (09:26→20:40)
[2017-11-20] MEDS: LIPASE/PROTEASE/AMYLASE (24,000/76,000/120,000) CAP PO SCH ×3 (09:26→17:11)
[2017-11-20] MEDS: SODIUM CHLORIDE 0.9% FLUSH 10 ML FLUSH IV FLUSH SCH ×2 (09:27→20:40)
[2017-11-20] MEDS: LINZESS 145 MCG PO SCH (09:28)
[2017-11-20] MEDS: guaiFENesin/DEXTROMETHORPHAN 200 MG/20 MG/10 ML CUP PO PRN (09:31)
[2017-11-20] MEDS: AZITHROMYCIN INJ 500 MG in SODIUM CHLOR 0.9% 250 ML INJ 250 ML IV SCH (15:30)
--- NOTE | 2017-11-20 16:37 | HHI.PR ---
Subjective Remarks 77 YOWM with COPD exac.Pn DM Has chest congestion, not able to expactorate Has wheezing no fever Objective Vital Signs Vital Signs Date Time Temp Pulse Resp B/P (MAP) Pulse Ox O2 Delivery O2 Flow Rate FiO2 11/20/17 15:56 95 21 11/20/17 12:02 97.9 65 20 122/66 (84) 94 11/20/17 12:00 69 11/20/17 08:02 97.1 66 20 128/68 (88) 95 11/20/17 08:00 Room Air 11/20/17 08:00 62 11/20/17 05:45 97.2 61 14 127/70 (89) 92 11/20/17 02:32 98.0 66 18 133/62 (85) 95 11/20/17 00:00 74 11/19/17 23:29 97 11/19/17 22:29 97.7 65 12 142/86 (104) 94 11/19/17 19:00 Room Air I/O 11/19/17 11/19/17 11/19/17 11/20/17 11/20/17 11/20/17 07:00 15:00 23:00 07:00 15:00 23:00 Intake Total 1100 ml 100 ml 3130 ml Balance 1100 ml 100 ml 3130 ml Intake Oral 480 ml IV Total 1100 ml 100 ml 2650 ml # Voids 15 6 # Bowel Movements 1 Result Diagram: 11/17/17 0711/17/17 0707 Objective Remarks GENERAL: WBWN WM, NAD SKIN: Warm and dry. HEAD: Normocephalic. EYES: No scleral icterus. No injection or drainage. NECK: Supple, trachea midline. No JVD or lymphadenopathy. CARDIOVASCULAR: Regular rate and rhythm without murmurs, gallops, or rubs. RESPIRATORY: Breath sounds equal bilaterally. No accessory muscle use. Exp rhonchi GASTROINTESTINAL: Abdomen soft, non-tender, nondistended. MUSCULOSKELETAL: No cyanosis, or edema. BACK: Nontender without obvious deformity. No CVA tenderness. A/P Assessment and Plan COPD Exac Pneumonia DM GERD Migraine headache PLAN Increase Solumedrol 40 mg q 6 hrs Aerosol nebs Use Acapella Cont Abx Monitor BS NIRAV pt and his SaraiMelvin Reyes MD Nov 20, 2017 16:37
[2017-11-20] MEDS: ENOXAPARIN SODIUM 40 MG/0.4 ML SYRINGE SQ SCH (17:10)
--- NOTE | 2017-11-20 17:21 | HHI.PR ---
Subjective Remarks With more wheezing today. no fever or chills. NO n/v/d/c. Denies chest pain . Not much cough Objective Vitals Vital Signs Date Time Temp Pulse Resp B/P (MAP) Pulse Ox O2 Delivery O2 Flow Rate FiO2 11/20/17 16:02 97.7 78 20 142/80 (100) 94 11/20/17 15:56 95 21 11/20/17 12:02 97.9 65 20 122/66 (84) 94 11/20/17 12:00 69 11/20/17 08:02 97.1 66 20 128/68 (88) 95 11/20/17 08:00 Room Air 11/20/17 08:00 62 11/20/17 05:45 97.2 61 14 127/70 (89) 92 11/20/17 02:32 98.0 66 18 133/62 (85) 95 11/20/17 00:00 74 11/19/17 23:29 97 11/19/17 22:29 97.7 65 12 142/86 (104) 94 11/19/17 19:00 Room Air I/O 11/19/17 11/19/17 11/19/17 11/20/17 11/20/17 11/20/17 06:59 14:59 22:59 06:59 14:59 22:59 Intake Total 1200 ml 100 ml 3130 ml Balance 1200 ml 100 ml 3130 ml Intake Oral 480 ml IV Total 1200 ml 100 ml 2650 ml # Voids 15 6 # Bowel Movements 1 Result Diagram: 11/17/17 0707 11/17/17 0707 Imaging Last Impressions Chest X-Ray 11/19/17 0600 Signed Impressions: Service Date/Time: Sunday, November 19, 2017 06:48 - CONCLUSION: Acute bibasilar airspace disease with subsegmental consolidation on the left. Emerson Hyde MD CT Angiography 11/14/17 1223 Signed Impressions: Service Date/Time: Tuesday, November 14, 2017 14:21 - CONCLUSION: 1. No evidence of pulmonary embolism. 2. Patchy parenchymal infiltrates in both lung bases, left greater than right. 3. Compensated cardiomegaly. Maksim Scanlon MD Objective Remarks GENERAL: Pleasant male awake and oriented appears in nad. CARDIOVASCULAR: Regular rate and rhythm. RESPIRATORY: No accessory muscle use. Clear to auscultation. Breath sounds equal bilaterally. GASTROINTESTINAL: Abdomen soft, non-tender, nondistended. Hepatic and splenic margins not palpable. MUSCULOSKELETAL: Extremities without clubbing, cyanosis, or edema. No obvious deformities. NEUROLOGICAL: Awake and alert. No obvious cranial nerve deficits. Motor grossly within normal limits. Five out of 5 muscle strength in the arms and legs. Normal speech. PSYCHIATRIC: Appropriate mood and affect; insight and judgment normal. 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 Patchy parenchymal infiltrates in both lung bases, left greater than right. Compensated cardiomegaly allergy read. -DC zosyn and vanco IV. Continue azithromycin may consider changing to PO. Also might consider bronchoscopy. -Duonebs scheduled and as need -O2 supplement keep O2 sat > 94% -Continue on current Solumedrol dose- taper steroids as tolerated (to maintaince dose of 7.5 mg for his vasculitis) -Incentive spirometry -Sputum cultures reviewed normal. Repeat sputum cultures are negative. Pneumococcal and Legionella antigen in the urine are negative as well. Also check for MAC -Add Mucinex. Add Tylenol/codeine for persistent cough -Dr. Hodgson ff - PFTs- Consult Pulmonary consult with his vasculitis - may have some form of Interstitial lung disease- - patient without impressive smoking history History of Vasculitis with neuropathy --restart his Lyrica 200 mg q 8 - on prednisone chronic as OP ( 7.5 mg ) currently on IV solumedrol - ff as OP by Dr. Díaz DM type 2 - states good readings at home on Prednisone 7.5 - ff blood sugars- here- expect to be up with IV solumedrol -ADA diet - continue on glipizide 5 mg po bid - start sliding scale insulin - check A1C Hypertension- continue meds- on JULISA/diuretics GERD- on PPI and Carafate History of constipation on Linzess History of Migraine headaches - continue on Imitrex 6 mg sq daily prn - continue psych meds continue all other meds GI prophylaxis: PPI DVT prophylaxis: lovenox/Teds/SCDs Discussed with the patient, nurse, Dr. Hodgson infectious disease Ana Lilia Inman MD Nov 20, 2017 17:21
[2017-11-20] MEDS: DONEPEZIL HCL 5 MG TAB PO SCH (20:41)
[2017-11-21] VITALS (10 sets, daily range): BP systolic 135–163; BP diastolic 64–87; PULSE 51–78; RESP 16–20; TEMP 97.5–98.1; O2SAT 93–98
[2017-11-21] MEDS: RESP: ALBUTEROL 2.5 MG/IPRATROPIUM 0.5 MG NEB (PRN) NEB ×2 (00:18→23:52)
[2017-11-21] MEDS: ACETAMINOPHEN/CODEINE ELIX 120 MG/12 MG/5 ML CUP PO PRN ×4 (00:41→20:23)
[2017-11-21] MEDS: TEMAZEPAM 15 MG CAP PO PRN (00:41)
[2017-11-21] MEDS: CARBIDOPA/LEVODOPA 25 MG/100 MG TAB PO SCH ×3 (04:56→20:21)
[2017-11-21] MEDS: RESP: ALBUTEROL 2.5 MG/IPRATROPIUM 0.5 MG NEB (SCH) NEB ×4 (07:59→20:09)
[2017-11-21] MEDS: glipiZIDE 5 MG TAB PO SCH ×2 (08:27→17:00)
[2017-11-21] MEDS: methylPREDNISolone SOD SUCC 40 MG/1 ML VIAL IV PUSH SCH ×4 (08:27→20:22)
[2017-11-21] MEDS: SODIUM CHLORIDE 0.9% FLUSH 10 ML FLUSH IV FLUSH SCH ×2 (08:28→20:27)
[2017-11-21] MEDS: LINZESS 145 MCG PO SCH (08:28)
[2017-11-21] MEDS: SUCRALFATE 1 GM TAB PO SCH ×4 (08:29→20:21)
[2017-11-21] MEDS: DULoxetine HCl DR 60 MG CAP PO SCH (08:30)
[2017-11-21] MEDS: CELECOXIB 200 MG CAP PO SCH (08:30)
[2017-11-21] MEDS: ASPIRIN EC 81 MG TABEC PO SCH (08:31)
[2017-11-21] MEDS: ESCITALOPRAM OXALATE 10 MG TAB PO SCH (08:32)
[2017-11-21] MEDS: TRIAMTERENE/HCTZ 37.5 MG/25 MG TAB PO SCH (08:33)
[2017-11-21] MEDS: PREGABALIN 100 MG CAP PO SCH ×3 (08:33→18:00)
[2017-11-21] MEDS: guaiFENesin E.R. 600 MG TAB PO SCH ×2 (08:34→20:21)
[2017-11-21] MEDS: DOCUSATE SODIUM 50 MG/SENNA 8.6 MG TAB PO SCH ×2 (08:34→20:22)
[2017-11-21] MEDS: LISINOPRIL 10 MG TAB PO SCH (08:35)
[2017-11-21] MEDS: PANTOPRAZOLE SOD 40 MG DELAYED RELEASE TAB PO SCH (08:35)
[2017-11-21] MEDS: TOPIRAMATE 25 MG TAB PO SCH ×2 (08:36→20:21)
[2017-11-21] MEDS: LIPASE/PROTEASE/AMYLASE (24,000/76,000/120,000) CAP PO SCH ×3 (08:36→18:19)
--- NOTE | 2017-11-21 11:07 | EKG ---
Date Performed: 11/20/2017 Time Performed: 14:05:14 PTAGE: 77 years EKG: Sinus rhythm with PAC(s). Left axis deviation Inferior infarct - age undetermined Abnormal ECG NO PREVIOUS TRACING DOCTOR: Marcos Ramsey Interpretating Date/Time 11/21/2017 11:06:26
--- NOTE | 2017-11-21 15:37 | HHI.PR ---
Subjective Remarks The patient still reports having wheezing. However he is not doing well on 2 L by nasal cannula. Denies any chest pain. Shortness of breath at baseline. No fever chills overnight. No chest pain with deep inspiration. Objective Vitals Vital Signs Date Time Temp Pulse Resp B/P (MAP) Pulse Ox O2 Delivery O2 Flow Rate FiO2 11/21/17 15:14 20 11/21/17 12:00 98.0 60 20 143/65 (91) 95 11/21/17 08:04 98 Nasal Cannula 4.00 11/21/17 08:00 97.5 62 20 145/80 (101) 98 11/21/17 04:00 97.9 55 18 135/64 (87) 98 11/21/17 04:00 65 11/21/17 00:00 69 11/21/17 00:00 97.9 51 18 163/87 (112) 96 11/20/17 20:00 Room Air 11/20/17 20:00 76 11/20/17 20:00 98.0 94 18 166/85 (112) 93 11/20/17 16:02 97.7 78 20 142/80 (100) 94 11/20/17 16:00 81 11/20/17 15:56 95 21 I/O 11/20/17 11/20/17 11/20/17 11/21/17 11/21/17 11/21/17 07:00 15:00 23:00 07:00 15:00 23:00 Intake Total 480 ml Balance 480 ml Intake Oral 480 ml # Voids 6 2 # Bowel Movements 1 Result Diagram: 11/17/17 0707 11/17/17 0707 Imaging Last Impressions Chest X-Ray 11/19/17 0600 Signed Impressions: Service Date/Time: Sunday, November 19, 2017 06:48 - CONCLUSION: Acute bibasilar airspace disease with subsegmental consolidation on the left. Emesron Hyde MD CT Angiography 11/14/17 1223 Signed Impressions: Service Date/Time: Tuesday, November 14, 2017 14:21 - CONCLUSION: 1. No evidence of pulmonary embolism. 2. Patchy parenchymal infiltrates in both lung bases, left greater than right. 3. Compensated cardiomegaly. Maksim Scanlon MD Objective Remarks GENERAL: Pleasant male awake and oriented appears in nad. CARDIOVASCULAR: Regular rate and rhythm. RESPIRATORY: No accessory muscle use. Clear to auscultation. Breath sounds equal bilaterally. GASTROINTESTINAL: Abdomen soft, non-tender, nondistended. Hepatic and splenic margins not palpable. MUSCULOSKELETAL: Extremities without clubbing, cyanosis, or edema. No obvious deformities. NEUROLOGICAL: Awake and alert. No obvious cranial nerve deficits. Motor grossly within normal limits. Five out of 5 muscle strength in the arms and legs. Normal speech. PSYCHIATRIC: Appropriate mood and affect; insight and judgment normal. 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 Patchy parenchymal infiltrates in both lung bases, left greater than right. Compensated cardiomegaly allergy read. -DC zosyn and vanco IV. Continue azithromycin may consider changing to PO. Also might consider bronchoscopy. -Duonebs scheduled and as need -O2 supplement keep O2 sat > 94% -Continue on current Solumedrol dose- taper steroids as tolerated (to maintaince dose of 7.5 mg for his vasculitis). However patient with wheezing pulmonology increased Solu-Medrol to 40 mg every 6 hours. -Incentive spirometry -Sputum cultures reviewed normal. Repeat sputum cultures are negative. Pneumococcal and Legionella antigen in the urine are negative as well. Also check for MAC -Add Mucinex. Add Tylenol/codeine for persistent cough -Dr. Hodgson ff - PFTs- Consult Pulmonary consult with his vasculitis - may have some form of Interstitial lung disease- - patient without impressive smoking history History of Vasculitis with neuropathy --restart his Lyrica 200 mg q 8 - on prednisone chronic as OP ( 7.5 mg ) currently on IV solumedrol - ff as OP by Dr. Díaz DM type 2 - states good readings at home on Prednisone 7.5 - ff blood sugars- here- expect to be up with IV solumedrol -ADA diet - continue on glipizide 5 mg po bid - start sliding scale insulin - check A1C Hypertension- continue meds- on JULISA/diuretics GERD- on PPI and Carafate History of constipation on Linzess History of Migraine headaches - continue on Imitrex 6 mg sq daily prn - continue psych meds continue all other meds GI prophylaxis: PPI DVT prophylaxis: lovenox/Teds/SCDs Discussed with the patient, nurse Ana Lilia Inman MD Nov 21, 2017 15:36
[2017-11-21] MEDS: AZITHROMYCIN INJ 500 MG in SODIUM CHLOR 0.9% 250 ML INJ 250 ML IV SCH (16:00)
--- NOTE | 2017-11-21 17:58 | HHI.PR ---
Subjective Remarks 77 YOWM with COPD exac.Pn DM Has chest congestion, not able to expactorate Has wheezing no fever Breathing little better Objective Vital Signs Vital Signs Date Time Temp Pulse Resp B/P (MAP) Pulse Ox O2 Delivery O2 Flow Rate FiO2 11/21/17 17:34 93 Room Air 11/21/17 15:58 98.1 71 20 143/76 (98) 93 11/21/17 15:14 20 11/21/17 12:00 98.0 60 20 143/65 (91) 95 11/21/17 08:04 98 Nasal Cannula 4.00 11/21/17 08:00 97.5 62 20 145/80 (101) 98 11/21/17 04:00 97.9 55 18 135/64 (87) 98 11/21/17 04:00 65 11/21/17 00:00 69 11/21/17 00:00 97.9 51 18 163/87 (112) 96 11/20/17 20:00 Room Air 11/20/17 20:00 76 11/20/17 20:00 98.0 94 18 166/85 (112) 93 I/O 11/20/17 11/20/17 11/20/17 11/21/17 11/21/17 11/21/17 07:00 15:00 23:00 07:00 15:00 23:00 Intake Total 480 ml 720 ml Balance 480 ml 720 ml Intake Oral 480 ml 720 ml # Voids 6 2 5 # Bowel Movements 1 Result Diagram: 11/17/1770611/17/17 0707 Objective Remarks GENERAL: WBWN WM, NAD SKIN: Warm and dry. HEAD: Normocephalic. EYES: No scleral icterus. No injection or drainage. NECK: Supple, trachea midline. No JVD or lymphadenopathy. CARDIOVASCULAR: Regular rate and rhythm without murmurs, gallops, or rubs. RESPIRATORY: Breath sounds equal bilaterally. No accessory muscle use. Exp rhonchi GASTROINTESTINAL: Abdomen soft, non-tender, nondistended. MUSCULOSKELETAL: No cyanosis, or edema. BACK: Nontender without obvious deformity. No CVA tenderness. A/P Assessment and Plan COPD Exac Pneumonia DM GERD Migraine headache PLAN : Increase Solumedrol 40 mg q 6 hrs Aerosol nebs Use Acapella Cont Abx Monitor BS DW pt and his will FU in AM Melvin Moon MD Nov 21, 2017 17:58
[2017-11-21] MEDS: ENOXAPARIN SODIUM 40 MG/0.4 ML SYRINGE SQ SCH (18:00)
[2017-11-21] MEDS: DONEPEZIL HCL 5 MG TAB PO SCH (20:21)
[2017-11-22] VITALS (12 sets, daily range): BP systolic 126–150; BP diastolic 65–83; PULSE 53–89; RESP 14–20; TEMP 97.2–98.2; O2SAT 93–98
[2017-11-22] MEDS: ACETAMINOPHEN/CODEINE ELIX 120 MG/12 MG/5 ML CUP PO PRN ×5 (00:24→20:09)
[2017-11-22] MEDS: TEMAZEPAM 15 MG CAP PO PRN (00:24)
[2017-11-22] MEDS: CARBIDOPA/LEVODOPA 25 MG/100 MG TAB PO SCH ×3 (05:03→20:08)
[2017-11-22] MEDS: RESP: ALBUTEROL 2.5 MG/IPRATROPIUM 0.5 MG NEB (SCH) NEB ×4 (08:05→20:51)
[2017-11-22] MEDS: ESCITALOPRAM OXALATE 10 MG TAB PO SCH (08:56)
[2017-11-22] MEDS: PANTOPRAZOLE SOD 40 MG DELAYED RELEASE TAB PO SCH (08:57)
[2017-11-22] MEDS: SUCRALFATE 1 GM TAB PO SCH ×4 (08:57→20:08)
[2017-11-22] MEDS: guaiFENesin E.R. 600 MG TAB PO SCH ×2 (08:57→20:08)
[2017-11-22] MEDS: methylPREDNISolone SOD SUCC 40 MG/1 ML VIAL IV PUSH SCH ×4 (08:57→20:09)
[2017-11-22] MEDS: ASPIRIN EC 81 MG TABEC PO SCH (08:57)
[2017-11-22] MEDS: DOCUSATE SODIUM 50 MG/SENNA 8.6 MG TAB PO SCH ×2 (08:57→20:08)
[2017-11-22] MEDS: LISINOPRIL 10 MG TAB PO SCH (08:57)
[2017-11-22] MEDS: glipiZIDE 5 MG TAB PO SCH ×2 (08:57→17:38)
[2017-11-22] MEDS: SODIUM CHLORIDE 0.9% FLUSH 10 ML FLUSH IV FLUSH SCH ×2 (08:58→20:07)
[2017-11-22] MEDS: CELECOXIB 200 MG CAP PO SCH (10:09)
[2017-11-22] MEDS: DULoxetine HCl DR 60 MG CAP PO SCH (10:10)
[2017-11-22] MEDS: LINZESS 145 MCG PO SCH (10:10)
[2017-11-22] MEDS: LIPASE/PROTEASE/AMYLASE (24,000/76,000/120,000) CAP PO SCH ×3 (10:12→17:37)
[2017-11-22] MEDS: TRIAMTERENE/HCTZ 37.5 MG/25 MG TAB PO SCH (10:23)
[2017-11-22] MEDS: TOPIRAMATE 25 MG TAB PO SCH ×2 (10:23→20:08)
[2017-11-22] MEDS: PREGABALIN 100 MG CAP PO SCH ×3 (10:23→17:37)
--- NOTE | 2017-11-22 13:15 | HHI.IDPN ---
Note Infectious Disease Note Patient feels better. Still having coughing spells. Note that he is bringing up a little sputum. On oxygen via nasal cannula. Still having some shortness of breath with exertion. Reports that his blood sugar goes low. Afebrile. Sputum culture has yeast. Final identity pending. ZANA negative. Sedimentation rate 2. Prolactin level not elevated. LDH mildly increased. Sputum culture has normal carson. Sputum AFB smear negative. Mycoplasma IgG positive. Suggesting past infection or exposure. 2D echocardiogram reveals trace mitral regurgitation. 77-year-old white male who presented to the emergency department with respiratory symptoms. The patient does have cough and sputum production and shortness of breath for about a month. He was treated with 3 courses of antibiotics including Levaquin, doxycycline, and Z-DASHA. He did not improve and presented to emergency department. The patient has been on prednisone for vasculitis. He takes the prednisone daily. The patient and his report that they traveled from [place] about a month ago and when they got on the airplane to return to home from [place], that virtually everyone on the airplane was coughing. The patient had no problems with fever or chills, however. The patient states that he has had difficulty lying flat since he started having the problem and he has been coughing all day since the coughing began. PAST MEDICAL HISTORY: Depression, hyperlipidemia, allergic rhinitis, hypertension, gastroesophageal reflux disease, migraines, vasculitis, cerebrovascular accident in 2009 with minimal left lower extremity weakness, chronic low back pain, spinal stimulator which was replaced last year by fusion surgery, carotid artery surgery, left lower leg surgery. ALLERGIES: NO KNOWN DRUG ALLERGIES. MEDICATIONS: Antibiotics Azithromycin. Piperacillin/tazobactam. Current Medications Medications (Trade) Dose Ordered Sig/Nilsa Route PRN Reason Start Time Stop Time Status Last Admin Dose Admin Aspirin (Ecotrin Ec) 81 mg DAILY PO 11/15/17 09:00 11/19/17 08:13 Carbidopa/Levodopa (Sinemet 25-100 Mg) 1 tab Q8HR PO 11/14/17 22:00 11/19/17 13:18 Celecoxib (CeleBREX) 200 mg DAILY PO 11/15/17 09:00 11/19/17 08:13 Donepezil HCl (Aricept) 10 mg HS PO 11/14/17 21:00 11/18/17 21:00 Duloxetine HCl (Cymbalta Dr) 60 mg DAILY PO 11/15/17 09:00 11/19/17 08:13 Escitalopram Oxalate (Lexapro) 10 mg DAILY PO 11/15/17 09:00 11/19/17 08:12 Acetaminophen/ Hydrocodone Bitart ([place] 5-325 Mg) 1 tab Q6H PRN PO PAIN 1-10 11/14/17 16:00 Lisinopril (Prinivil) 10 mg DAILY PO 11/15/17 09:00 11/19/17 08:12 Sucralfate (Carafate) 1 gm QID PO 11/14/17 18:00 11/19/17 12:18 Temazepam (Restoril) 30 mg HS PRN PO INSOMNIA 11/14/17 16:00 11/18/17 23:27 Topiramate (Topamax) 25 mg BID PO 11/14/17 21:00 11/19/17 08:13 Triamterene/HCTZ (Maxzide 37.5-25 Mg) 0.5 tab DAILY PO 11/15/17 09:00 11/19/17 08:13 Pantoprazole Sodium (Protonix) 40 mg DAILY PO 11/15/17 09:00 11/19/17 08:12 Patient Own Medication PT OWN MED: MOVAN... DAILY PO 11/15/17 09:00 Future Hold Amylase/Lipase/ Protease (Creon 24-76-120) 1 cap TIDPC PO 11/14/17 18:30 11/19/17 13:18 Sodium Chloride 1,000 ml @ 100 mls/hr Q10H IV 11/14/17 17:00 11/19/17 04:02 Sodium Chloride (NS Flush) 2 ml UNSCH PRN IV FLUSH FLUSH AFTER USING IV ACCESS 11/14/17 16:15 Sodium Chloride (NS Flush) 2 ml BID IV FLUSH 11/14/17 21:00 11/18/17 21:31 Acetaminophen (Tylenol) 650 mg Q4H PRN PO TEMP > 100.4 11/14/17 16:15 Ondansetron HCl (Zofran Inj) 4 mg Q6H PRN IVP NAUSEA OR VOMITING 11/14/17 16:15 Enoxaparin Sodium (Lovenox Inj) 40 mg Q24H SQ 11/14/17 18:00 11/18/17 18:09 Naloxone HCl (Narcan Inj) 0.4 mg UNSCH PRN IV PUSH SEE LABEL COMMENTS 11/14/17 16:15 Senna/Docusate Sodium (Mili-Colace) 1 tab BID PO 11/14/17 21:00 11/19/17 08:13 Magnesium Hydroxide (Milk Of Magnesia Liq) 30 ml Q12H PRN PO Mild constipation 11/14/17 16:15 Sennosides (Senokot) 17.2 mg Q12H PRN PO Moderate constipation 11/14/17 16:15 Bisacodyl (Dulcolax Supp) 10 mg DAILY PRN RECTAL SEVERE CONSITIPATION 11/14/17 16:15 Lactulose (Lactulose Liq) 30 ml DAILY PRN PO SEVERE CONSITIPATION 11/14/17 16:15 Albuterol/ Ipratropium (Duoneb Neb) 1 ampule Q2HR NEB PRN NEB sob/wheezing 11/14/17 16:30 11/19/17 13:08 Patient Own Medication PT OWN MED: LINZ... DAILY PO 11/15/17 09:00 11/19/17 08:14 Pregabalin (Lyrica) 200 mg TID PO 11/15/17 18:00 11/19/17 12:18 Sumatriptan Succinate (Imitrex Inj) 6 mg DAILY PRN SQ MIGRAIN HEADACHE 11/15/17 16:30 11/16/17 20:14 Glipizide (Glucotrol) 5 mg BID@08,17 PO 11/15/17 17:00 11/19/17 08:13 Dextrose (D50w (Vial) Inj) 50 ml UNSCH PRN IV PUSH HYPOGLYCEMIA-SEE COMMENTS 11/15/17 16:45 Glucagon (Glucagon Inj) 1 mg UNSCH PRN OTHER HYPOGLYCEMIA-SEE COMMENTS 11/15/17 16:45 Guaifenesin/ Dextromethorphan (Robitussin Dm 200-20 Mg/10 ml Liq) 10 ml Q6H PRN PO cough 11/16/17 12:00 Sumatriptan Succinate (Imitrex Inj) 6 mg UNSCH PRN SQ MIGRAINE HEADACHE intractable 11/16/17 18:00 Acetaminophen/ Codeine Phosphate (Tylenol - Codeine 120-12 Liq) 5 ml Q4H PRN PO persistent cough 11/16/17 19:00 11/19/17 12:22 Guaifenesin (Mucinex Er) 600 mg BID PO 11/16/17 21:00 11/19/17 08:13 Azithromycin 500 mg/Sodium Chloride 250 ml @ 250 mls/hr Q24H IV 11/18/17 16:00 11/18/17 16:29 Methylprednisolone Sodium Succinate (SoluMEDROL INJ) 40 mg BID IV PUSH 11/19/17 21:00 UNV Albuterol/ Ipratropium (Duoneb Neb) 1 ampule Q4HR WHILE AWAKE NEB NEB 11/19/17 16:00 UNV Albuterol/ Ipratropium (Duoneb Neb) 1 ampule ONCE ONCE NEB 11/19/17 12:45 11/19/17 12:46 UNV SOCIAL HISTORY: The patient is . He smokes occasional cigar. Occasional social alcohol. No substance abuse. OBJECTIVE: Vital Signs Date Time Temp Pulse Resp B/P (MAP) Pulse Ox O2 Delivery O2 Flow Rate FiO2 11/22/17 08:07 97 Nasal Cannula 3.00 11/22/17 08:00 97.5 53 20 150/71 (97) 98 11/22/17 08:00 Room Air 11/22/17 04:45 97.4 71 16 129/70 (89) 96 11/22/17 04:03 70 11/22/17 00:16 80 11/22/17 00:15 97.2 72 14 144/74 (97) 96 11/21/17 20:10 98 Nasal Cannula 3.00 11/21/17 19:53 78 11/21/17 19:30 Room Air 11/21/17 19:12 97.8 72 16 136/75 (95) 95 11/21/17 17:34 93 Room Air 11/21/17 16:00 78 11/21/17 15:58 98.1 71 20 143/76 (98) 93 11/21/17 15:14 20 IMAGING: Chest X-Ray 11/19/17 0600 Signed Impressions: Service Date/Time: Sunday, November 19, 2017 06:48 - CONCLUSION: Acute bibasilar airspace disease with subsegmental consolidation on the left. Emerson Hyde MD Chest X-Ray 11/16/17 0000 Signed Impressions: Service Date/Time: Thursday, November 16, 2017 12:59 - CONCLUSION: 1. Bibasilar densities likely atelectasis. Tejas Duke MD CT Angiography 11/14/17 1223 Signed Impressions: Service Date/Time: Tuesday, November 14, 2017 14:21 - CONCLUSION: 1. No evidence of pulmonary embolism. 2. Patchy parenchymal infiltrates in both lung bases, left greater than right. 3. Compensated cardiomegaly. Maksim Scanlon MD PHYSICAL EXAMINATION: GENERAL: Awake and alert. HEENT: The head is atraumatic. Extraocular movements grossly intact, pupils reactive to light. No icterus. OROPHARYNX: Moist mucosa. No lesions. NECK: Supple without adenopathy. LUNGS: Coarse rhonchi bilateral. HEART: Irregular rate and rhythm. No murmurs, rubs, or gallops. ABDOMEN: Bowel sounds present, soft, no tenderness. EXTREMITIES: No clubbing, cyanosis, or edema. No calf tenderness. SKIN: Red hue to the skin. No macular rash. NEUROLOGIC: No gross focal findings. PSYCHIATRIC: Calm and cooperative. IMPRESSION: 1. Persistent lung infiltrates. 2. Pneumonia. ? etiology. Patient with respiratory symptoms with cough and dyspnea on exertion and CT scan shows patchy focal infiltrates in both lung bases. Cultures now showing yeast. Prolactin level is negative. This is probably non infectious etiology for the lung changes. 3. Failed outpatient treatment with oral antibiotic; doxycycline, Levaquin, and azithromycin. 4. Acute kidney disease, mild. RECOMMENDATIONS: 1. Continue azithromycin. 2. Add fluconazole p.o. for yeast. Monitor the sputum culture for identity of the yeast. 3. Consider bronchoscopy. Pulmonary following. If cleared for discharge by pulmonary, the azithromycin can be changed to p.o. Mack Hodgson MD Nov 22, 2017 13:15
[2017-11-22] MEDS: AZITHROMYCIN INJ 500 MG in SODIUM CHLOR 0.9% 250 ML INJ 250 ML IV SCH (15:43)
--- NOTE | 2017-11-22 16:16 | HHI.PR ---
Subjective Remarks The patient was seen earlier in the morning. Says he still with wheezing. Not coughing much. No fever or chills. No nausea or vomiting he is eating fairly well. Blood sugar is better controlled he is off insulin because he is getting hypoglycemic with insulin. Objective Vitals Vital Signs Date Time Temp Pulse Resp B/P (MAP) Pulse Ox O2 Delivery O2 Flow Rate FiO2 11/22/17 12:00 97.4 56 20 126/74 (91) 96 11/22/17 08:07 97 Nasal Cannula 3.00 11/22/17 08:00 97.5 53 20 150/71 (97) 98 11/22/17 08:00 Room Air 11/22/17 04:45 97.4 71 16 129/70 (89) 96 11/22/17 04:03 70 11/22/17 00:16 80 11/22/17 00:15 97.2 72 14 144/74 (97) 96 11/21/17 20:10 98 Nasal Cannula 3.00 11/21/17 19:53 78 11/21/17 19:30 Room Air 11/21/17 19:12 97.8 72 16 136/75 (95) 95 11/21/17 17:34 93 Room Air I/O 11/21/17 11/21/17 11/21/17 11/22/17 11/22/17 11/22/17 06:59 14:59 22:59 06:59 14:59 22:59 Intake Total 720 ml Balance 720 ml Intake Oral 720 ml # Voids 2 5 Imaging Last Impressions Chest X-Ray 11/19/17 0600 Signed Impressions: Service Date/Time: Sunday, November 19, 2017 06:48 - CONCLUSION: Acute bibasilar airspace disease with subsegmental consolidation on the left. Emerson Hyde MD CT Angiography 11/14/17 1223 Signed Impressions: Service Date/Time: Tuesday, November 14, 2017 14:21 - CONCLUSION: 1. No evidence of pulmonary embolism. 2. Patchy parenchymal infiltrates in both lung bases, left greater than right. 3. Compensated cardiomegaly. Maksim Scanlon MD Objective Remarks GENERAL: Pleasant male awake and oriented appears in nad. CARDIOVASCULAR: Regular rate and rhythm. RESPIRATORY: No accessory muscle use. Clear to auscultation. Breath sounds equal bilaterally. GASTROINTESTINAL: Abdomen soft, non-tender, nondistended. Hepatic and splenic margins not palpable. MUSCULOSKELETAL: Extremities without clubbing, cyanosis, or edema. No obvious deformities. NEUROLOGICAL: Awake and alert. No obvious cranial nerve deficits. Motor grossly within normal limits. Five out of 5 muscle strength in the arms and legs. Normal speech. PSYCHIATRIC: Appropriate mood and affect; insight and judgment normal. 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 Patchy parenchymal infiltrates in both lung bases, left greater than right. Compensated cardiomegaly allergy read. -DC zosyn and vanco IV. Continue azithromycin may consider changing to PO. Also might consider bronchoscopy. -Duonebs scheduled and as need -O2 supplement keep O2 sat > 94% -Continue on current Solumedrol dose- taper steroids as tolerated (to maintaince dose of 7.5 mg for his vasculitis). However patient with wheezing pulmonology increased Solu-Medrol to 40 mg every 6 hours. -Incentive spirometry -Sputum cultures reviewed normal. Repeat sputum cultures are negative. Pneumococcal and Legionella antigen in the urine are negative as well. Also check for MAC -Add Mucinex. Add Tylenol/codeine for persistent cough -Dr. Gokul gallegos - PFTs- Consult Pulmonary consult with his vasculitis - may have some form of Interstitial lung disease- - patient without impressive smoking history History of Vasculitis with neuropathy --restart his Lyrica 200 mg q 8 - on prednisone chronic as OP ( 7.5 mg ) currently on IV solumedrol - ff as OP by Dr. Díaz DM type 2 - states good readings at home on Prednisone 7.5 - ff blood sugars- here- expect to be up with IV solumedrol -ADA diet - continue on glipizide 5 mg po bid - start sliding scale insulin - check A1C Hypertension- continue meds- on JULISA/diuretics GERD- on PPI and Carafate History of constipation on Linzess History of Migraine headaches - continue on Imitrex 6 mg sq daily prn - continue psych meds continue all other meds GI prophylaxis: PPI DVT prophylaxis: lovenox/Teds/SCDs Discussed with the patient, nurse, Dr. Hodgson infectious disease specialist Discussed with Dr. Beasley pulmonology, he will evaluate patient and decide regarding bronchoscopy Ana Lilia Inman MD Nov 22, 2017 16:16
--- NOTE | 2017-11-22 16:23 | HHI.PR ---
Subjective Remarks alert on o2 C/O CONGESTION CXRAY [facility] PNA Objective Vital Signs Date Time Temp Pulse Resp B/P (MAP) Pulse Ox O2 Delivery O2 Flow Rate FiO2 11/22/17 12:00 97.4 56 20 126/74 (91) 96 11/22/17 08:07 97 Nasal Cannula 3.00 11/22/17 08:00 97.5 53 20 150/71 (97) 98 11/22/17 08:00 Room Air 11/22/17 04:45 97.4 71 16 129/70 (89) 96 11/22/17 04:03 70 11/22/17 00:16 80 11/22/17 00:15 97.2 72 14 144/74 (97) 96 11/21/17 20:10 98 Nasal Cannula 3.00 11/21/17 19:53 78 11/21/17 19:30 Room Air 11/21/17 19:12 97.8 72 16 136/75 (95) 95 11/21/17 17:34 93 Room Air I/O 11/21/17 11/21/17 11/21/17 11/22/17 11/22/17 11/22/17 06:59 14:59 22:59 06:59 14:59 22:59 Intake Total 720 ml Balance 720 ml Intake Oral 720 ml # Voids 2 5 Objective Remarks GENERAL: SKIN: Warm and dry. HEAD: Atraumatic. Normocephalic. EYES: Pupils equal and round. No scleral icterus. No injection or drainage. ENT: No nasal bleeding or discharge. Mucous membranes pink and moist. NECK: Trachea midline. No JVD. CARDIOVASCULAR: Regular rate and rhythm. RESPIRATORY: No accessory muscle use. SCATTERED RHONCHI . Breath sounds equal bilaterally. GASTROINTESTINAL: Abdomen soft, non-tender, nondistended. Hepatic and splenic margins not palpable. MUSCULOSKELETAL: Extremities without clubbing, cyanosis, or edema. No obvious deformities. NEUROLOGICAL: Awake and alert. No obvious cranial nerve deficits. Motor grossly within normal limits. Five out of 5 muscle strength in the arms and legs. Normal speech. PSYCHIATRIC: Appropriate mood and affect; insight and judgment normal. Assessment and Plan Assessment and Plan RESPIRATORY FAILURE PNA PLAN O2 ANTIBX F/U CXRAY INCREASE ACTIVITY BRONCHOSCOPY Ramos Priest MD Nov 22, 2017 16:23
[2017-11-22] MEDS ORDERED: DEXT 5%-NACL 0.45% 1000 ML INJ 1,000 ML IV SCH (17:00)
[2017-11-22] MEDS: LEVOFLOXACIN 500 MG PREMIX INJ 100 ML IV SCH (17:39)
[2017-11-22] MEDS: ENOXAPARIN SODIUM 40 MG/0.4 ML SYRINGE SQ SCH (17:39)
[2017-11-22] MEDS: DONEPEZIL HCL 5 MG TAB PO SCH (20:08)
[2017-11-22 20:11] LABS: AUTOMATED NEUTROPHIL # 9.3 TH/MM3 (1.8-7.7); BASOPHIL % 0.1 % (0.0-2.0); HEMATOCRIT 43.9 % (39.0-51.0); HEMOGLOBIN 14.9 GM/DL (13.0-17.0); LYMPH % 4.4 % (9.0-44.0); LYMPHOCYTE # 0.5 TH/MM3 (1.0-4.8); MEAN CELL VOLUME 90.7 FL (80.0-100.0); MEAN CORPUSCULAR HEMOGLOBIN 30.8 PG (27.0-34.0); MEAN CORPUSCULAR HGB CONC 33.9 % (32.0-36.0); MEAN PLATELET VOLUME 9.1 FL (7.0-11.0); MONO % 4.6 % (0.0-8.0); MONOCYTE # 0.5 TH/MM3 (0-0.9); NEUT % 90.9 % (16.0-70.0); PLATELET COUNT 173 TH/MM3 (150-450); RED BLOOD COUNT 4.84 MIL/MM3 (4.50-5.90); RED CELL DISTRIBUTION WIDTH 15.3 % (11.6-17.2); WHITE BLOOD COUNT 10.3 TH/MM3 (4.0-11.0)
[2017-11-22 20:20] LABS: INTERNATIONAL NORMALIZED RATIO 1.1 RATIO; PROTHROMBIN TIME - PATIENT 11.2 SEC (9.8-11.6)
[2017-11-22 20:31] LABS: BICARBONATE 21.7 MEQ/L (21.0-32.0); CALCIUM 8.5 MG/DL (8.5-10.1); CREATININE 1.37 MG/DL (0.60-1.30)
[2017-11-23] VITALS (9 sets, daily range): BP systolic 118–154; BP diastolic 64–85; PULSE 53–88; RESP 16–20; TEMP 97.4–98.5; O2SAT 92–97
[2017-11-23] MEDS: TEMAZEPAM 15 MG CAP PO PRN (00:08)
[2017-11-23] MEDS: ACETAMINOPHEN/CODEINE ELIX 120 MG/12 MG/5 ML CUP PO PRN ×4 (00:09→20:49)
[2017-11-23] MEDS: RESP: ALBUTEROL 2.5 MG/IPRATROPIUM 0.5 MG NEB (PRN) NEB ×3 (00:19→23:57)
[2017-11-23] MEDS: CARBIDOPA/LEVODOPA 25 MG/100 MG TAB PO SCH ×3 (05:22→20:55)
[2017-11-23] MEDS ORDERED: CHLORHEXIDINE GLUCONATE 2 % 1 PACK (2 CLOTHS) TOPICAL PRN (06:45)
[2017-11-23] MEDS ORDERED: POVIDONE IODINE 5% (ANTISEPSIS KIT) 4 APPLICATIONS EACH NARE PRN (06:45)
[2017-11-23] MEDS ORDERED: LACTATED RINGER'S 1000 ML IV PRN (06:45)
[2017-11-23] MEDS ORDERED: SODIUM CHLORID 0.9% 500 ML IV PRN (06:45)
[2017-11-23 07:18] LABS: AUTOMATED NEUTROPHIL # 6.7 TH/MM3 (1.8-7.7); BASOPHIL % 0.2 % (0.0-2.0); HEMATOCRIT 40.4 % (39.0-51.0); HEMOGLOBIN 13.8 GM/DL (13.0-17.0); LYMPH % 9.9 % (9.0-44.0); LYMPHOCYTE # 0.8 TH/MM3 (1.0-4.8); MEAN CELL VOLUME 91.2 FL (80.0-100.0); MEAN CORPUSCULAR HEMOGLOBIN 31.2 PG (27.0-34.0); MEAN CORPUSCULAR HGB CONC 34.2 % (32.0-36.0); MEAN PLATELET VOLUME 9.1 FL (7.0-11.0); MONO % 7.8 % (0.0-8.0); MONOCYTE # 0.6 TH/MM3 (0-0.9); NEUT % 82.1 % (16.0-70.0); PLATELET COUNT 159 TH/MM3 (150-450); RED BLOOD COUNT 4.43 MIL/MM3 (4.50-5.90); RED CELL DISTRIBUTION WIDTH 15.4 % (11.6-17.2); WHITE BLOOD COUNT 8.2 TH/MM3 (4.0-11.0)
[2017-11-23 07:50] LABS: BICARBONATE 23.9 MEQ/L (21.0-32.0); CALCIUM 8.3 MG/DL (8.5-10.1); CREATININE 1.21 MG/DL (0.60-1.30)
[2017-11-23] MEDS: glipiZIDE 5 MG TAB PO SCH ×2 (08:00→17:51)
[2017-11-23] MEDS: RESP: ALBUTEROL 2.5 MG/IPRATROPIUM 0.5 MG NEB (SCH) NEB ×3 (08:20→15:39)
[2017-11-23] MEDS: DULoxetine HCl DR 60 MG CAP PO SCH (09:00)
[2017-11-23] MEDS: SODIUM CHLORIDE 0.9% FLUSH 10 ML FLUSH IV FLUSH SCH ×2 (09:47→20:57)
--- NOTE | 2017-11-23 10:29 | HHI.PR ---
Subjective Remarks alert on o2 CXRAY [facility] PNA Objective Vital Signs Date Time Temp Pulse Resp B/P (MAP) Pulse Ox O2 Delivery O2 Flow Rate FiO2 11/23/17 08:00 97.4 66 20 133/72 (92) 92 11/23/17 05:16 97.5 58 16 143/65 (91) 93 11/23/17 03:59 68 11/23/17 00:11 97.5 69 16 134/64 (87) 93 11/22/17 23:52 87 11/22/17 20:53 94 Nasal Cannula 3.00 11/22/17 19:52 87 11/22/17 19:51 98.2 62 20 133/83 (100) 93 11/22/17 19:30 Room Air 11/22/17 16:34 18 11/22/17 16:34 18 11/22/17 16:00 84 11/22/17 16:00 97.6 75 20 137/65 (89) 97 11/22/17 12:00 89 11/22/17 12:00 97.4 56 20 126/74 (91) 96 I/O 11/22/17 11/22/17 11/22/17 11/23/17 11/23/17 11/23/17 07:00 15:00 23:00 07:00 15:00 23:00 Intake Total 300 ml 1540 ml Balance 300 ml 1540 ml Intake Oral 300 ml 1190 ml IV Total 350 ml # Voids 2 7 # Bowel Movements 1 Result Diagram: 11/23/17 0620 11/23/17 0620 Objective Remarks GENERAL: SKIN: Warm and dry. HEAD: Atraumatic. Normocephalic. EYES: Pupils equal and round. No scleral icterus. No injection or drainage. ENT: No nasal bleeding or discharge. Mucous membranes pink and moist. NECK: Trachea midline. No JVD. CARDIOVASCULAR: Regular rate and rhythm. RESPIRATORY: No accessory muscle use. SCATTERED RHONCHI . Breath sounds equal bilaterally. GASTROINTESTINAL: Abdomen soft, non-tender, nondistended. Hepatic and splenic margins not palpable. MUSCULOSKELETAL: Extremities without clubbing, cyanosis, or edema. No obvious deformities. NEUROLOGICAL: Awake and alert. No obvious cranial nerve deficits. Motor grossly within normal limits. Five out of 5 muscle strength in the arms and legs. Normal speech. PSYCHIATRIC: Appropriate mood and affect; insight and judgment normal. Assessment and Plan Assessment and Plan RESPIRATORY FAILURE PNA PLAN O2 ANTIBX F/U CXRAY INCREASE ACTIVITY BRONCHOSCOPY TODAY Ramos Beasley MD Nov 23, 2017 10:29
[2017-11-23] MEDS: PREGABALIN 100 MG CAP PO SCH ×3 (10:53→17:51)
[2017-11-23] MEDS: methylPREDNISolone SOD SUCC 40 MG/1 ML VIAL IV PUSH SCH ×4 (10:53→20:50)
[2017-11-23] MEDS: LISINOPRIL 10 MG TAB PO SCH (10:53)
[2017-11-23] MEDS: ASPIRIN EC 81 MG TABEC PO SCH (10:53)
[2017-11-23] MEDS: SUCRALFATE 1 GM TAB PO SCH ×4 (10:53→20:49)
[2017-11-23] MEDS: TOPIRAMATE 25 MG TAB PO SCH ×2 (10:53→20:50)
[2017-11-23] MEDS: guaiFENesin E.R. 600 MG TAB PO SCH ×2 (10:54→20:50)
[2017-11-23] MEDS: CELECOXIB 200 MG CAP PO SCH (10:54)
[2017-11-23] MEDS: PANTOPRAZOLE SOD 40 MG DELAYED RELEASE TAB PO SCH (10:54)
[2017-11-23] MEDS: LIPASE/PROTEASE/AMYLASE (24,000/76,000/120,000) CAP PO SCH ×3 (10:54→17:51)
[2017-11-23] MEDS: ESCITALOPRAM OXALATE 10 MG TAB PO SCH (10:54)
[2017-11-23] MEDS: DOCUSATE SODIUM 50 MG/SENNA 8.6 MG TAB PO SCH ×2 (10:54→20:49)
[2017-11-23] MEDS: FLUCONAZOLE 200 MG TAB PO SCH (10:54)
[2017-11-23] MEDS: LINZESS 145 MCG PO SCH (10:54)
[2017-11-23] MEDS: TRIAMTERENE/HCTZ 37.5 MG/25 MG TAB PO SCH (10:57)
[2017-11-23] MEDS: DEXT 5%-NACL 0.45% 1000 ML INJ 1,000 ML IV SCH (11:38)
--- NOTE | 2017-11-23 11:38 | HHI.PR ---
Subjective Remarks Ambulating in the hallways. Says he is less sob. Some wheezing. No n/v/d/c. Denies chest pain or sob. No fever ro chills overnight. Patient is NPO for upcoming bronch. Hold glipizide, started on D5 NS as patient is noted hypoglycemic Objective Vitals Vital Signs Date Time Temp Pulse Resp B/P (MAP) Pulse Ox O2 Delivery O2 Flow Rate FiO2 11/23/17 08:00 97.4 66 20 133/72 (92) 92 11/23/17 05:16 97.5 58 16 143/65 (91) 93 11/23/17 03:59 68 11/23/17 00:11 97.5 69 16 134/64 (87) 93 11/22/17 23:52 87 11/22/17 20:53 94 Nasal Cannula 3.00 11/22/17 19:52 87 11/22/17 19:51 98.2 62 20 133/83 (100) 93 11/22/17 19:30 Room Air 11/22/17 16:34 18 11/22/17 16:34 18 11/22/17 16:00 84 11/22/17 16:00 97.6 75 20 137/65 (89) 97 11/22/17 12:00 89 11/22/17 12:00 97.4 56 20 126/74 (91) 96 I/O 11/22/17 11/22/17 11/22/17 11/23/17 11/23/17 11/23/17 07:00 15:00 23:00 07:00 15:00 23:00 Intake Total 300 ml 1540 ml Balance 300 ml 1540 ml Intake Oral 300 ml 1190 ml IV Total 350 ml # Voids 2 7 # Bowel Movements 1 Result Diagram: 11/23/17 0620 11/23/17 0620 Imaging Last Impressions Chest X-Ray 11/19/17 0600 Signed Impressions: Service Date/Time: Sunday, November 19, 2017 06:48 - CONCLUSION: Acute bibasilar airspace disease with subsegmental consolidation on the left. Emerson Hyde MD CT Angiography 11/14/17 1223 Signed Impressions: Service Date/Time: Tuesday, November 14, 2017 14:21 - CONCLUSION: 1. No evidence of pulmonary embolism. 2. Patchy parenchymal infiltrates in both lung bases, left greater than right. 3. Compensated cardiomegaly. Maksim Scanlon MD Objective Remarks GENERAL: Pleasant male awake and oriented appears in nad. CARDIOVASCULAR: Regular rate and rhythm. RESPIRATORY: No accessory muscle use. Clear to auscultation. Breath sounds equal bilaterally. GASTROINTESTINAL: Abdomen soft, non-tender, nondistended. Hepatic and splenic margins not palpable. MUSCULOSKELETAL: Extremities without clubbing, cyanosis, or edema. No obvious deformities. NEUROLOGICAL: Awake and alert. No obvious cranial nerve deficits. Motor grossly within normal limits. Five out of 5 muscle strength in the arms and legs. Normal speech. PSYCHIATRIC: Appropriate mood and affect; insight and judgment normal. 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 Patchy parenchymal infiltrates in both lung bases, left greater than right. Compensated cardiomegaly allergy read. -DC zosyn and vanco IV. Continue azithromycin may consider changing to PO. Also might consider bronchoscopy. -Duonebs scheduled and as need -O2 supplement keep O2 sat > 94% -Continue on current Solumedrol dose- taper steroids as tolerated (to maintaince dose of 7.5 mg for his vasculitis). However patient with wheezing pulmonology increased Solu-Medrol to 40 mg every 6 hours. -Incentive spirometry -Sputum cultures reviewed normal. Repeat sputum cultures are negative. Pneumococcal and Legionella antigen in the urine are negative as well. Also check for MAC -Add Mucinex. Add Tylenol/codeine for persistent cough -Dr. Hodgson ff - PFTs- Consult Pulmonary consult with his vasculitis - may have some form of Interstitial lung disease- - patient without impressive smoking history Patient is NPO for upcoming bronch. History of Vasculitis with neuropathy --restart his Lyrica 200 mg q 8 - on prednisone chronic as OP ( 7.5 mg ) currently on IV solumedrol - ff as OP by Dr. Díaz DM type 2 - states good readings at home on Prednisone 7.5 - ff blood sugars- here- expect to be up with IV solumedrol -ADA diet - continue on glipizide 5 mg po bid - start sliding scale insulin - check A1C Patient is NPO as plan for bronch today by Dr Beasley. Hold glipizide, started on D5 NS as patient is noted hypoglycemic Hypertension- continue meds- on JULISA/diuretics GERD- on PPI and Carafate History of constipation on Linzess History of Migraine headaches - continue on Imitrex 6 mg sq daily prn - continue psych meds continue all other meds GI prophylaxis: PPI DVT prophylaxis: lovenox/Teds/SCDs Discussed with the patient, nurse Plan for bronch 11/23/17 Ana Lilia Winn MD Nov 23, 2017 11:38
[2017-11-23] MEDS ORDERED: MIDAZOLAM HCL 2 MG/2 ML VIAL ONE (15:35)
[2017-11-23 16:47] LABS: HEMOGLOBIN A1C 7.1 % (4.3-6.0)
[2017-11-23] MEDS ORDERED: DO NOT ADM ANY ANTICOAGULANT DRUGS PRN (17:00)
[2017-11-23] MEDS: LEVOFLOXACIN 500 MG PREMIX INJ 100 ML IV SCH (17:51)
[2017-11-23] MEDS: ENOXAPARIN SODIUM 40 MG/0.4 ML SYRINGE SQ SCH (17:52)
[2017-11-23] MEDS: DONEPEZIL HCL 5 MG TAB PO SCH (20:50)
[2017-11-24] VITALS (10 sets, daily range): BP systolic 124–136; BP diastolic 64–78; PULSE 66–80; RESP 19–20; TEMP 97.2–98.2; O2SAT 94–96
[2017-11-24] MEDS: TEMAZEPAM 15 MG CAP PO PRN ×2 (00:32→23:22)
[2017-11-24] MEDS: ACETAMINOPHEN/CODEINE ELIX 120 MG/12 MG/5 ML CUP PO PRN ×5 (00:33→20:59)
[2017-11-24] MEDS: DEXT 5%-NACL 0.45% 1000 ML INJ 1,000 ML IV SCH ×3 (00:34→20:45)
[2017-11-24] MEDS: CARBIDOPA/LEVODOPA 25 MG/100 MG TAB PO SCH ×3 (05:46→20:43)
--- NOTE | 2017-11-24 08:18 | MR ---
cc: Ramos Beasley MD 11/23/2017 PROCEDURE PERFORMED: Fiberoptic bronchoscopy, flexible. REASON FOR BRONCHOSCOPY: Bilateral lung infiltrates, underlying pneumonia suspect, chronic inflammatory process, rule out underlying malignancy. PROCEDURE: Fiberoptic bronchoscopy performed via LMA. Vocal cords intact. Trachea moderately hyperemic. Carolynn sharp. Right main stem bronchus, right upper, mid and lower lobe, left main bronchus, left upper and lower lobes inspected. Thick mucoid secretion unplugging on both sides of the tracheobronchial tree noted with which were quite difficult to remove, however subsequently all plugs were removed. Diffuse hyperemia noted. Washings from both sides of the tracheobronchial tree obtained for routine TB fungal cultures all are sent for cytologic examination. Cytologic brush biopsy right lower lung lobe obtained as well for cytologic examination. Procedure was well-tolerated. The patient transferred to recovery in stable condition. IMPRESSION: 1. Moderate tracheal bronchitis. 2. Excessive mucosal secretion unplugging. 3. Samples obtained as above. 4. Procedure well-tolerated. 5. Patient transferred to recovery in stable condition. Ramos Beasley MD WWW/BRI , 06:54 PM , 07:13 PM
[2017-11-24] MEDS: PREGABALIN 100 MG CAP PO SCH ×3 (08:24→18:18)
[2017-11-24] MEDS: methylPREDNISolone SOD SUCC 40 MG/1 ML VIAL IV PUSH SCH ×4 (08:24→20:43)
[2017-11-24] MEDS: glipiZIDE 5 MG TAB PO SCH ×2 (08:24→18:18)
[2017-11-24] MEDS: SUCRALFATE 1 GM TAB PO SCH ×4 (08:25→20:44)
[2017-11-24] MEDS: LIPASE/PROTEASE/AMYLASE (24,000/76,000/120,000) CAP PO SCH ×3 (08:25→18:19)
[2017-11-24] MEDS: ESCITALOPRAM OXALATE 10 MG TAB PO SCH (08:25)
[2017-11-24] MEDS: FLUCONAZOLE 200 MG TAB PO SCH (08:25)
[2017-11-24] MEDS: TRIAMTERENE/HCTZ 37.5 MG/25 MG TAB PO SCH (08:25)
[2017-11-24] MEDS: DULoxetine HCl DR 60 MG CAP PO SCH (08:25)
[2017-11-24] MEDS: guaiFENesin E.R. 600 MG TAB PO SCH ×2 (08:25→20:44)
[2017-11-24] MEDS: LINZESS 145 MCG PO SCH (08:26)
[2017-11-24] MEDS: LISINOPRIL 10 MG TAB PO SCH (08:26)
[2017-11-24] MEDS: SODIUM CHLORIDE 0.9% FLUSH 10 ML FLUSH IV FLUSH SCH ×2 (08:26→20:44)
[2017-11-24] MEDS: PANTOPRAZOLE SOD 40 MG DELAYED RELEASE TAB PO SCH (08:26)
[2017-11-24] MEDS: ASPIRIN EC 81 MG TABEC PO SCH (08:26)
[2017-11-24] MEDS: TOPIRAMATE 25 MG TAB PO SCH ×2 (08:26→20:44)
[2017-11-24] MEDS: DOCUSATE SODIUM 50 MG/SENNA 8.6 MG TAB PO SCH ×2 (08:26→20:43)
[2017-11-24] MEDS: CELECOXIB 200 MG CAP PO SCH (08:26)
[2017-11-24 09:26] LABS: AUTOMATED NEUTROPHIL # 7.4 TH/MM3 (1.8-7.7); BASOPHIL % 0.1 % (0.0-2.0); HEMATOCRIT 40.2 % (39.0-51.0); HEMOGLOBIN 13.7 GM/DL (13.0-17.0); LYMPHOCYTE # 0.5 TH/MM3 (1.0-4.8); MEAN CELL VOLUME 91.2 FL (80.0-100.0); MEAN CORPUSCULAR HEMOGLOBIN 31.1 PG (27.0-34.0); MEAN CORPUSCULAR HGB CONC 34.1 % (32.0-36.0); MEAN PLATELET VOLUME 9.1 FL (7.0-11.0); MONO % 7.9 % (0.0-8.0); MONOCYTE # 0.7 TH/MM3 (0-0.9); PLATELET COUNT 149 TH/MM3 (150-450); RED BLOOD COUNT 4.41 MIL/MM3 (4.50-5.90); RED CELL DISTRIBUTION WIDTH 15.4 % (11.6-17.2); WHITE BLOOD COUNT 8.6 TH/MM3 (4.0-11.0)
[2017-11-24] MEDS: RESP: ALBUTEROL 2.5 MG/IPRATROPIUM 0.5 MG NEB (PRN) NEB ×4 (09:27→21:18)
[2017-11-24 09:36] LABS: BICARBONATE 20.9 MEQ/L (21.0-32.0); BLOOD UREA NITROGEN 31 MG/DL (7-18); CALCIUM 7.8 MG/DL (8.5-10.1); CHLORIDE 105 MEQ/L (98-107); CREATININE 1.28 MG/DL (0.60-1.30); GLOMERULAR FILTRATION RATE 55 ML/MIN (>89); GLUCOSE,RANDOM 280 MG/DL (74-106); SODIUM (NA) 136 MEQ/L (136-145)
[2017-11-24 16:07] LABS: HEMOGLOBIN A1C 7.1 % (4.3-6.0)
--- NOTE | 2017-11-24 16:26 | HHI.PR ---
Subjective Remarks alert on o2 CXRAY [facility] PNA feeling better post bronchoscopy Objective Vital Signs Date Time Temp Pulse Resp B/P (MAP) Pulse Ox O2 Delivery O2 Flow Rate FiO2 11/24/17 14:24 Room Air 11/24/17 12:05 98.2 66 20 130/64 (86) 96 11/24/17 12:00 71 11/24/17 11:46 Room Air 11/24/17 09:00 Room Air 11/24/17 08:05 97.7 71 20 136/77 (96) 95 11/24/17 08:00 73 11/24/17 04:00 97.6 68 19 127/73 (91) 94 11/24/17 04:00 66 11/24/17 00:00 97.6 69 20 124/73 (90) 96 11/24/17 00:00 71 11/24/17 00:00 96 21 11/23/17 23:36 Nasal Cannula 2.00 11/23/17 20:46 98.1 88 17 118/69 (85) 94 11/23/17 20:00 73 I/O 11/23/17 11/23/17 11/23/17 11/24/17 11/24/17 11/24/17 07:00 15:00 23:00 07:00 15:00 23:00 Intake Total 1376 ml 1404 ml Balance 1376 ml 1404 ml Intake Oral 0 ml 480 ml IV Total 1376 ml 924 ml # Voids 5 4 # Bowel Movements 1 Result Diagram: 11/24/17 0707 11/24/17 0707 Objective Remarks GENERAL: SKIN: Warm and dry. HEAD: Atraumatic. Normocephalic. EYES: Pupils equal and round. No scleral icterus. No injection or drainage. ENT: No nasal bleeding or discharge. Mucous membranes pink and moist. NECK: Trachea midline. No JVD. CARDIOVASCULAR: Regular rate and rhythm. RESPIRATORY: No accessory muscle use. SCATTERED RHONCHI . Breath sounds equal bilaterally. GASTROINTESTINAL: Abdomen soft, non-tender, nondistended. Hepatic and splenic margins not palpable. MUSCULOSKELETAL: Extremities without clubbing, cyanosis, or edema. No obvious deformities. NEUROLOGICAL: Awake and alert. No obvious cranial nerve deficits. Motor grossly within normal limits. Five out of 5 muscle strength in the arms and legs. Normal speech. PSYCHIATRIC: Appropriate mood and affect; insight and judgment normal. Assessment and Plan Assessment and Plan RESPIRATORY FAILURE PNA PLAN O2 ANTIBX F/U CXRAY INCREASE ACTIVITY F/U CXRAY Ramos Beasley MD Nov 24, 2017 16:25
--- NOTE | 2017-11-24 17:12 | HHI.IDPN ---
Note Infectious Disease Note Patient feels short of breath. He underwent bronchoscopy with void secretions yesterday. Continues to have coughing spells. Denies chest pain. Afebrile. Bronchoscopy sample has preliminary premature growth. 77-year-old white male who presented to the emergency department with respiratory symptoms. The patient does have cough and sputum production and shortness of breath for about a month. He was treated with 3 courses of antibiotics including Levaquin, doxycycline, and Z-DASHA. He did not improve and presented to emergency department. The patient has been on prednisone for vasculitis. He takes the prednisone daily. The patient and his report that they traveled from [place] about a month ago and when they got on the airplane to return to home from [place], that virtually everyone on the airplane was coughing. The patient had no problems with fever or chills, however. The patient states that he has had difficulty lying flat since he started having the problem and he has been coughing all day since the coughing began. PAST MEDICAL HISTORY: Depression, hyperlipidemia, allergic rhinitis, hypertension, gastroesophageal reflux disease, migraines, vasculitis, cerebrovascular accident in 2009 with minimal left lower extremity weakness, chronic low back pain, spinal stimulator which was replaced last year by fusion surgery, carotid artery surgery, left lower leg surgery. ALLERGIES: NO KNOWN DRUG ALLERGIES. MEDICATIONS: Current Medications Medications (Trade) Dose Ordered Sig/Nilsa Route PRN Reason Start Time Stop Time Status Last Admin Dose Admin Aspirin (Ecotrin Ec) 81 mg DAILY PO 11/15/17 09:00 11/24/17 08:26 Carbidopa/Levodopa (Sinemet 25-100 Mg) 1 tab Q8HR PO 11/14/17 22:00 11/24/17 13:42 Celecoxib (CeleBREX) 200 mg DAILY PO 11/15/17 09:00 11/24/17 08:26 Donepezil HCl (Aricept) 10 mg HS PO 11/14/17 21:00 11/23/17 20:50 Duloxetine HCl (Cymbalta Dr) 60 mg DAILY PO 11/15/17 09:00 11/24/17 08:25 Escitalopram Oxalate (Lexapro) 10 mg DAILY PO 11/15/17 09:00 11/24/17 08:25 Acetaminophen/ Hydrocodone Bitart (Burton 5-325 Mg) 1 tab Q6H PRN PO PAIN 1-10 11/14/17 16:00 Lisinopril (Prinivil) 10 mg DAILY PO 11/15/17 09:00 11/24/17 08:26 Sucralfate (Carafate) 1 gm QID PO 11/14/17 18:00 11/24/17 13:41 Temazepam (Restoril) 30 mg HS PRN PO INSOMNIA 11/14/17 16:00 11/24/17 00:32 Topiramate (Topamax) 25 mg BID PO 11/14/17 21:00 11/24/17 08:26 Triamterene/HCTZ (Maxzide 37.5-25 Mg) 0.5 tab DAILY PO 11/15/17 09:00 11/24/17 08:25 Pantoprazole Sodium (Protonix) 40 mg DAILY PO 11/15/17 09:00 11/24/17 08:26 Patient Own Medication PT OWN MED: MOVAN... DAILY PO 11/15/17 09:00 Future Hold Amylase/Lipase/ Protease (Creon 24-76-120) 1 cap TIDPC PO 11/14/17 18:30 11/24/17 13:41 Sodium Chloride (NS Flush) 2 ml UNSCH PRN IV FLUSH FLUSH AFTER USING IV ACCESS 11/14/17 16:15 Sodium Chloride (NS Flush) 2 ml BID IV FLUSH 11/14/17 21:00 11/23/17 20:57 Acetaminophen (Tylenol) 650 mg Q4H PRN PO TEMP > 100.4 11/14/17 16:15 Ondansetron HCl (Zofran Inj) 4 mg Q6H PRN IVP NAUSEA OR VOMITING 11/14/17 16:15 Enoxaparin Sodium (Lovenox Inj) 40 mg Q24H SQ 11/14/17 18:00 11/23/17 17:52 Naloxone HCl (Narcan Inj) 0.4 mg UNSCH PRN IV PUSH SEE LABEL COMMENTS 11/14/17 16:15 Senna/Docusate Sodium (Mili-Colace) 1 tab BID PO 11/14/17 21:00 11/24/17 08:26 Magnesium Hydroxide (Milk Of Magnesia Liq) 30 ml Q12H PRN PO Mild constipation 11/14/17 16:15 Sennosides (Senokot) 17.2 mg Q12H PRN PO Moderate constipation 11/14/17 16:15 Bisacodyl (Dulcolax Supp) 10 mg DAILY PRN RECTAL SEVERE CONSITIPATION 11/14/17 16:15 Lactulose (Lactulose Liq) 30 ml DAILY PRN PO SEVERE CONSITIPATION 11/14/17 16:15 Albuterol/ Ipratropium (Duoneb Neb) 1 ampule Q2HR NEB PRN NEB sob/wheezing 11/14/17 16:30 11/24/17 12:45 Patient Own Medication PT OWN MED: LINZ... DAILY PO 11/15/17 09:00 11/24/17 08:26 Pregabalin (Lyrica) 200 mg TID PO 11/15/17 18:00 11/24/17 13:41 Sumatriptan Succinate (Imitrex Inj) 6 mg DAILY PRN SQ MIGRAIN HEADACHE 11/15/17 16:30 11/16/17 20:14 Glipizide (Glucotrol) 5 mg BID@08,17 PO 11/15/17 17:00 11/24/17 08:24 Dextrose (D50w (Vial) Inj) 50 ml UNSCH PRN IV PUSH HYPOGLYCEMIA-SEE COMMENTS 11/15/17 16:45 11/23/17 09:52 Glucagon (Glucagon Inj) 1 mg UNSCH PRN OTHER HYPOGLYCEMIA-SEE COMMENTS 11/15/17 16:45 Guaifenesin/ Dextromethorphan (Robitussin Dm 200-20 Mg/10 ml Liq) 10 ml Q6H PRN PO cough 11/16/17 12:00 11/20/17 09:31 Sumatriptan Succinate (Imitrex Inj) 6 mg UNSCH PRN SQ MIGRAINE HEADACHE intractable 11/16/17 18:00 Acetaminophen/ Codeine Phosphate (Tylenol - Codeine 120-12 Liq) 5 ml Q4H PRN PO persistent cough 11/16/17 19:00 11/24/17 16:00 Guaifenesin (Mucinex Er) 600 mg BID PO 11/16/17 21:00 11/24/17 08:25 Methylprednisolone Sodium Succinate (SoluMEDROL INJ) 40 mg QID IV PUSH 11/20/17 18:00 11/24/17 13:41 Fluconazole (Diflucan) 200 mg DAILY PO 11/23/17 09:00 11/24/17 08:25 Levofloxacin/ Dextrose 100 ml @ 100 mls/hr Q24H IV 11/22/17 17:00 11/23/17 17:51 Dextrose/Sodium Chloride 1,000 ml @ 0 mls/hr Q0M IV 11/22/17 17:00 Lactated Ringer's 1,000 ml @ 30 mls/hr Q24H PRN IV SEE LABEL COMMENTS 11/23/17 06:45 11/26/17 06:44 Sodium Chloride 500 ml @ 30 mls/hr [id number] PRN IV SEE LABEL COMMENTS 11/23/17 06:45 11/26/17 06:44 Povidone Iodine (Betadine 5% Antisepsis Kit) 1 applic BROACHING MACHINE OPERATOR PRN EACH NARE SEE LABEL COMMENTS 11/23/17 06:45 11/26/17 06:44 Chlorhexidine Gluconate (Chlorhexidine 2% Cloth) 3 pack BROACHING MACHINE OPERATOR PRN TOPICAL SEE LABEL COMMENTS 11/23/17 06:45 11/26/17 06:44 Dextrose/Sodium Chloride 1,000 ml @ 84 mls/hr [id number] IV 11/23/17 11:30 11/24/17 11:16 SOCIAL HISTORY: The patient is . He smokes occasional cigar. Occasional social alcohol. No substance abuse. OBJECTIVE: Vital Signs Date Time Temp Pulse Resp B/P (MAP) Pulse Ox O2 Delivery O2 Flow Rate FiO2 11/24/17 14:24 Room Air 11/24/17 12:05 98.2 66 20 130/64 (86) 96 11/24/17 12:00 71 11/24/17 11:46 Room Air 11/24/17 09:00 Room Air 11/24/17 08:05 97.7 71 20 136/77 (96) 95 11/24/17 08:00 73 11/24/17 04:00 97.6 68 19 127/73 (91) 94 11/24/17 04:00 66 11/24/17 00:00 97.6 69 20 124/73 (90) 96 11/24/17 00:00 71 11/24/17 00:00 96 21 11/23/17 23:36 Nasal Cannula 2.00 11/23/17 20:46 98.1 88 17 118/69 (85) 94 11/23/17 20:00 73 Laboratory Tests Test 11/22/17 19:21 11/23/17 06:20 11/24/17 07:07 White Blood Count 10.3 TH/MM3 8.2 TH/MM3 8.6 TH/MM3 Red Blood Count 4.84 MIL/MM3 4.43 MIL/MM3 4.41 MIL/MM3 Hemoglobin 14.9 GM/DL 13.8 GM/DL 13.7 GM/DL Hematocrit 43.9 % 40.4 % 40.2 % Mean Corpuscular Volume 90.7 FL 91.2 FL 91.2 FL Mean Corpuscular Hemoglobin 30.8 PG 31.2 PG 31.1 PG Mean Corpuscular Hemoglobin Concent 33.9 % 34.2 % 34.1 % Red Cell Distribution Width 15.3 % 15.4 % 15.4 % Platelet Count 173 TH/MM3 159 TH/MM3 149 TH/MM3 Mean Platelet Volume 9.1 FL 9.1 FL 9.1 FL Neutrophils (%) (Auto) 90.9 % 82.1 % 86.0 % Lymphocytes (%) (Auto) 4.4 % 9.9 % 6.0 % Monocytes (%) (Auto) 4.6 % 7.8 % 7.9 % Eosinophils (%) (Auto) 0.0 % 0.0 % 0.0 % Basophils (%) (Auto) 0.1 % 0.2 % 0.1 % Neutrophils # (Auto) 9.3 TH/MM3 6.7 TH/MM3 7.4 TH/MM3 Lymphocytes # (Auto) 0.5 TH/MM3 0.8 TH/MM3 0.5 TH/MM3 Monocytes # (Auto) 0.5 TH/MM3 0.6 TH/MM3 0.7 TH/MM3 Eosinophils # (Auto) 0.0 TH/MM3 0.0 TH/MM3 0.0 TH/MM3 Basophils # (Auto) 0.0 TH/MM3 0.0 TH/MM3 0.0 TH/MM3 CBC Comment DIFF FINAL DIFF FINAL DIFF FINAL Differential Comment Laboratory Tests Test 11/22/17 19:21 11/23/17 06:20 11/23/17 13:54 11/24/17 07:07 Blood Urea Nitrogen 32 MG/DL 31 MG/DL 31 MG/DL Creatinine 1.37 MG/DL 1.21 MG/DL 1.28 MG/DL Random Glucose 285 MG/DL 246 MG/DL 280 MG/DL Calcium Level 8.5 MG/DL 8.3 MG/DL 7.8 MG/DL Sodium Level 134 MEQ/L 137 MEQ/L 136 MEQ/L Potassium Level 3.9 MEQ/L 4.0 MEQ/L 4.0 MEQ/L Chloride Level 101 MEQ/L 106 MEQ/L 105 MEQ/L Carbon Dioxide Level 21.7 MEQ/L 23.9 MEQ/L 20.9 MEQ/L Anion Gap 11 MEQ/L 7 MEQ/L 10 MEQ/L Estimat Glomerular Filtration Rate 51 ML/MIN 58 ML/MIN 55 ML/MIN Hemoglobin A1c 7.1 % Microbiology Date/Time Source Procedure Growth Status 11/23/17 15:11 Bronchial Washings Bronchial Fungal Smear - Final NO FUNGAL ELEMENTS SEEN. Resulted 11/23/17 15:11 Bronchial Washings Bronchial Fungal Culture Pending Resulted 11/23/17 15:11 Bronchial Washings Bronchial Acid Fast Stain Pending Received 11/23/17 15:11 Bronchial Washings Bronchial Mycobacterial Culture Pending Received 11/23/17 15:11 Bronchial Washings Bronchial Gram Stain - Final Resulted 11/23/17 15:11 Bronchial Washings Bronchial Bronchial Culture - Preliminary IMMATURE GROWTH - REINCUBATE Resulted IMAGING: Chest X-Ray 11/19/17 0600 Signed Impressions: Service Date/Time: Sunday, November 19, 2017 06:48 - CONCLUSION: Acute bibasilar airspace disease with subsegmental consolidation on the left. Emerson Hyde MD CT Angiography 11/14/17 1223 Signed Impressions: Service Date/Time: Tuesday, November 14, 2017 14:21 - CONCLUSION: 1. No evidence of pulmonary embolism. 2. Patchy parenchymal infiltrates in both lung bases, left greater than right. 3. Compensated cardiomegaly. Maksim Scanlon MD CT Angiography 11/14/17 1223 Signed Impressions: Service Date/Time: Tuesday, November 14, 2017 14:21 - CONCLUSION: 1. No evidence of pulmonary embolism. 2. Patchy parenchymal infiltrates in both lung bases, left greater than right. 3. Compensated cardiomegaly. Maksim Scanlon MD PHYSICAL EXAMINATION: GENERAL: Awake and alert. No acute distress. HEENT: Extraocular movements grossly intact, pupils reactive to light. No icterus. OROPHARYNX: Moist mucosa. No lesions. NECK: Supple without adenopathy. LUNGS: Bilateral coarse breath sounds. HEART: Irregular rate and rhythm. No murmurs, rubs, or gallops. ABDOMEN: Bowel sounds present, soft, no tenderness. EXTREMITIES: No clubbing, cyanosis, or edema. SKIN: Mild reddish hue to the skin of the legs. Otherwise, no diffuse rash. NEUROLOGIC: No gross focal findings. PSYCHIATRIC: Patient is calm and cooperative. IMPRESSION: 1. Pneumonia. ? etiology. Patient with respiratory symptoms with cough and dyspnea on exertion and CT scan shows patchy focal infiltrates in both lung bases. Post bronchoscopy and bronc specimen culture pending. 2. Failed outpatient treatment with oral antibiotic; doxycycline, Levaquin, and azithromycin. 3. Acute kidney disease, mild. RECOMMENDATIONS: 1. Continue Levaquin. 2. Monitor the bronc sputum culture. 3. Continue fluconazole. 4. Follow clinical status. Mack Hodgson MD Nov 24, 2017 17:12
--- NOTE | 2017-11-24 17:42 | HHI.PR ---
Subjective Remarks The patient is in chair. Says he feels much better after bronchoscopy. No shortness of breath at this time he is saturating well on room air. No nausea vomiting no diarrhea constipation. He is not coughing. No fever or chills overnight Objective Vitals Vital Signs Date Time Temp Pulse Resp B/P (MAP) Pulse Ox O2 Delivery O2 Flow Rate FiO2 11/24/17 14:24 Room Air 11/24/17 12:05 98.2 66 20 130/64 (86) 96 11/24/17 12:00 71 11/24/17 11:46 Room Air 11/24/17 09:00 Room Air 11/24/17 08:05 97.7 71 20 136/77 (96) 95 11/24/17 08:00 73 11/24/17 04:00 97.6 68 19 127/73 (91) 94 11/24/17 04:00 66 11/24/17 00:00 97.6 69 20 124/73 (90) 96 11/24/17 00:00 71 11/24/17 00:00 96 21 11/23/17 23:36 Nasal Cannula 2.00 11/23/17 20:46 98.1 88 17 118/69 (85) 94 11/23/17 20:00 73 I/O 11/23/17 11/23/17 11/23/17 11/24/17 11/24/17 11/24/17 07:00 15:00 23:00 07:00 15:00 23:00 Intake Total 1376 ml 1404 ml Balance 1376 ml 1404 ml Intake Oral 0 ml 480 ml IV Total 1376 ml 924 ml # Voids 5 4 # Bowel Movements 1 Result Diagram: 11/24/17 0707 11/24/17 0707 Imaging Reported Meds & Active Scripts Active Sharpsafety Sharps Contai (Parenteral Therapy Supplies) 1 Mis Mis Ea .XX DIRECTED Glucocom Test Strips (Blood Glucose Test Strips) 1 Effie Effie Ea .XX DIRECTED Lancets 1 Mis Mis Ea .XX DIRECTED Glucocom Blood Glucose Mo W/Device (Device) 1 Kit Kit Kit .XX DIRECTED Azithromycin 500 Mg Tab 500 Mg PO DAILY [Acetamin-Codeine 120-12 Liq] 5 ML Elix 5 Ml PO Q4H PRN Glucotrol (Glipizide) 5 Mg Tab 5 Mg PO BID@08,17 Take 30 minutes before a meal Lortab (Hydrocodone-Acetaminophen) 5-325 Mg Tab 1 Tab PO Q6H PRN Reported Lyrica (Pregabalin) 200 Mg Cap 200 Mg PO TID Viagra (Sildenafil Citrate) 100 Mg Tab 100 Mg PO DAILY PRN Zenpep (Pancrelipase) 25,000-85,000-136,000 Units Cap 1 Cap PO TIDPC Topamax (Topiramate) 25 Mg Tab 25 Mg PO BID Temazepam 30 Mg Cap 30 Mg PO HS PRN Nexium (Esomeprazole DR) 40 Mg Capdr 40 Mg PO DAILY Movantik (Naloxegol) 25 Mg Tab 25 Mg PO DAILY Maxzide-25 (Triamterene-Hydrochlorothiazide) 37.5-25 Mg Tab 0.5 Tab PO DAILY Linzess (Linaclotide) 145 Mcg Cap 145 Mcg PO DAILY Lisinopril 10 Mg Tab 10 Mg PO DAILY Lexapro (Escitalopram Oxalate) 10 Mg Tab 10 Mg PO DAILY Cymbalta DR (Duloxetine HCl) 60 Mg Capdr 60 Mg PO DAILY Celebrex (Celecoxib) 200 Mg Cap 200 Mg PO DAILY Carafate (Sucralfate) 1 Gm Tab 1 Gm PO QID On empty stomach Carbidopa-Levodopa 25-100 Mg Tab 1 Tab PO Q8HR Aspirin 81 Mg Tabdr 81 Mg PO DAILY Aricept (Donepezil) 10 Mg Tab 10 Mg PO HS Objective Remarks GENERAL: Pleasant male awake and oriented appears in nad. CARDIOVASCULAR: Regular rate and rhythm. RESPIRATORY: No accessory muscle use. Clear to auscultation. Breath sounds equal bilaterally. GASTROINTESTINAL: Abdomen soft, non-tender, nondistended. Hepatic and splenic margins not palpable. MUSCULOSKELETAL: Extremities without clubbing, cyanosis, or edema. No obvious deformities. NEUROLOGICAL: Awake and alert. No obvious cranial nerve deficits. Motor grossly within normal limits. Five out of 5 muscle strength in the arms and legs. Normal speech. PSYCHIATRIC: Appropriate mood and affect; insight and judgment normal. 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 Patchy parenchymal infiltrates in both lung bases, left greater than right. Compensated cardiomegaly allergy read. -DC zosyn and vanco IV. Continue azithromycin may consider changing to PO. Also might consider bronchoscopy. -Duonebs scheduled and as need -O2 supplement keep O2 sat > 94% -Continue on current Solumedrol dose- taper steroids as tolerated (to maintaince dose of 7.5 mg for his vasculitis). However patient with wheezing pulmonology increased Solu-Medrol to 40 mg every 6 hours. -Incentive spirometry -Sputum cultures reviewed normal. Repeat sputum cultures are negative. Pneumococcal and Legionella antigen in the urine are negative as well. Also check for MAC -Add Mucinex. Add Tylenol/codeine for persistent cough -Dr. Hodgson ff - PFTs- Consult Pulmonary consult with his vasculitis - may have some form of Interstitial lung disease- - patient without impressive smoking history Patient is NPO for upcoming bronch. History of Vasculitis with neuropathy --restart his Lyrica 200 mg q 8 - on prednisone chronic as OP ( 7.5 mg ) currently on IV solumedrol - ff as OP by Dr. Díaz DM type 2 - states good readings at home on Prednisone 7.5 - ff blood sugars- here- expect to be up with IV solumedrol -ADA diet - continue on glipizide 5 mg po bid - start sliding scale insulin - check A1C Hold glipizide, started on D5 NS as patient is noted hypoglycemic . Monitor blood sugar. Discontinue D5 normal saline if normal sugars Status post bronchoscopy by Dr. Beasley 11/23/17 Hypertension- continue meds- on JULISA/diuretics GERD- on PPI and Carafate History of constipation on Linzess History of Migraine headaches - continue on Imitrex 6 mg sq daily prn - continue psych meds continue all other meds GI prophylaxis: PPI DVT prophylaxis: lovenox/Teds/SCDs Discussed with the patient, nurse Status post bronch 11/23/17 Ana Lilia Winn MD Nov 24, 2017 17:42
[2017-11-24] MEDS: LEVOFLOXACIN 500 MG PREMIX INJ 100 ML IV SCH (18:18)
[2017-11-24] MEDS: ENOXAPARIN SODIUM 40 MG/0.4 ML SYRINGE SQ SCH (18:19)
[2017-11-24] MEDS: guaiFENesin/DEXTROMETHORPHAN 200 MG/20 MG/10 ML CUP PO PRN (20:43)
[2017-11-24] MEDS: DONEPEZIL HCL 5 MG TAB PO SCH (20:44)
[2017-11-25] VITALS (10 sets, daily range): BP systolic 116–168; BP diastolic 67–87; PULSE 55–84; RESP 18–20; TEMP 97.2–98.6; O2SAT 94–98
[2017-11-25] MEDS: CARBIDOPA/LEVODOPA 25 MG/100 MG TAB PO SCH ×3 (06:09→21:15)
[2017-11-25] MEDS: ACETAMINOPHEN/CODEINE ELIX 120 MG/12 MG/5 ML CUP PO PRN ×4 (06:09→21:09)
[2017-11-25] MEDS: SODIUM CHLORIDE 0.9% FLUSH 10 ML FLUSH IV FLUSH SCH ×2 (09:00→21:00)
[2017-11-25] MEDS: LINZESS 145 MCG PO SCH (09:12)
[2017-11-25] MEDS: methylPREDNISolone SOD SUCC 40 MG/1 ML VIAL IV PUSH SCH ×3 (09:12→17:09)
[2017-11-25] MEDS: glipiZIDE 5 MG TAB PO SCH ×2 (09:12→17:08)
[2017-11-25] MEDS: ASPIRIN EC 81 MG TABEC PO SCH (09:13)
[2017-11-25] MEDS: CELECOXIB 200 MG CAP PO SCH (09:13)
[2017-11-25] MEDS: SUCRALFATE 1 GM TAB PO SCH ×4 (09:13→21:10)
[2017-11-25] MEDS: FLUCONAZOLE 200 MG TAB PO SCH (09:13)
[2017-11-25] MEDS: DULoxetine HCl DR 60 MG CAP PO SCH (09:13)
[2017-11-25] MEDS: TRIAMTERENE/HCTZ 37.5 MG/25 MG TAB PO SCH (09:14)
[2017-11-25] MEDS: PREGABALIN 100 MG CAP PO SCH ×3 (09:14→17:09)
[2017-11-25] MEDS: guaiFENesin E.R. 600 MG TAB PO SCH ×2 (09:14→21:10)
[2017-11-25] MEDS: ESCITALOPRAM OXALATE 10 MG TAB PO SCH (09:14)
[2017-11-25] MEDS: DOCUSATE SODIUM 50 MG/SENNA 8.6 MG TAB PO SCH ×2 (09:14→21:10)
[2017-11-25] MEDS: TOPIRAMATE 25 MG TAB PO SCH ×2 (09:15→21:10)
[2017-11-25] MEDS: PANTOPRAZOLE SOD 40 MG DELAYED RELEASE TAB PO SCH (09:15)
[2017-11-25] MEDS: LISINOPRIL 10 MG TAB PO SCH (09:15)
[2017-11-25] MEDS: LIPASE/PROTEASE/AMYLASE (24,000/76,000/120,000) CAP PO SCH ×3 (09:15→17:09)
--- NOTE | 2017-11-25 14:32 | HHI.PR ---
Subjective Remarks alert on o2 Objective Vital Signs Date Time Temp Pulse Resp B/P (MAP) Pulse Ox O2 Delivery O2 Flow Rate FiO2 11/25/17 13:38 Nasal Cannula 3.00 Humidified 11/25/17 12:02 98.2 60 19 132/72 (92) 97 11/25/17 09:00 Room Air 11/25/17 08:02 98.6 71 19 168/87 (114) 94 11/25/17 04:00 55 11/25/17 04:00 97.6 61 20 150/73 (98) 95 11/25/17 00:44 Nasal Cannula 2.00 11/25/17 00:00 97.2 71 18 143/73 (96) 96 11/25/17 00:00 68 11/25/17 00:00 97.9 63 20 116/67 (83) 94 11/24/17 21:19 96 21 11/24/17 21:15 Nasal Cannula 2.00 11/24/17 20:00 97.2 76 20 136/78 (97) 96 11/24/17 20:00 80 11/24/17 18:25 78 11/24/17 18:00 Nasal Cannula 2.00 11/24/17 16:05 98.0 70 20 132/66 (88) 96 I/O 11/24/17 11/24/17 11/24/17 11/25/17 11/25/17 11/25/17 06:59 14:59 22:59 06:59 14:59 22:59 Intake Total 858 ml 546 ml 520 ml Balance 858 ml 546 ml 520 ml Intake Oral 480 ml 520 ml IV Total 378 ml 546 ml # Voids 4 5 3 # Bowel Movements 1 1 Result Diagram: 11/24/17 0707 11/24/17 07 Objective Remarks GENERAL: SKIN: Warm and dry. HEAD: Atraumatic. Normocephalic. EYES: Pupils equal and round. No scleral icterus. No injection or drainage. ENT: No nasal bleeding or discharge. Mucous membranes pink and moist. NECK: Trachea midline. No JVD. CARDIOVASCULAR: Regular rate and rhythm. RESPIRATORY: No accessory muscle use. SCATTERED RHONCHI . Breath sounds equal bilaterally. GASTROINTESTINAL: Abdomen soft, non-tender, nondistended. Hepatic and splenic margins not palpable. MUSCULOSKELETAL: Extremities without clubbing, cyanosis, or edema. No obvious deformities. NEUROLOGICAL: Awake and alert. No obvious cranial nerve deficits. Motor grossly within normal limits. Five out of 5 muscle strength in the arms and legs. Normal speech. PSYCHIATRIC: Appropriate mood and affect; insight and judgment normal. Assessment and Plan Assessment and Plan RESPIRATORY FAILURE PNA PLAN O2 ANTIBX F/U CXRAY INCREASE ACTIVITY CHECK BRONCH CULTURES Ramos Beasley MD Nov 25, 2017 14:32
[2017-11-25] MEDS: RESP: ALBUTEROL 2.5 MG/IPRATROPIUM 0.5 MG NEB (SCH) NEB ×3 (15:50→23:10)
[2017-11-25] MEDS: LEVOFLOXACIN 500 MG PREMIX INJ 100 ML IV SCH (17:07)
[2017-11-25] MEDS: ENOXAPARIN SODIUM 40 MG/0.4 ML SYRINGE SQ SCH (17:09)
--- NOTE | 2017-11-25 17:54 | HHI.PR ---
Subjective Remarks Pt states he doesn't feel as good as yesterday. unable to cough up sputum. no chills or fevers. appetite is good. no nausea or vomiting. has been ambulating Objective Vitals Vital Signs Date Time Temp Pulse Resp B/P (MAP) Pulse Ox O2 Delivery O2 Flow Rate FiO2 11/25/17 16:10 Nasal Cannula 3.00 11/25/17 16:00 84 11/25/17 15:50 94 21 11/25/17 13:38 Nasal Cannula 3.00 Humidified 11/25/17 12:02 98.2 60 19 132/72 (92) 97 11/25/17 12:00 71 11/25/17 09:00 Room Air 11/25/17 08:02 98.6 71 19 168/87 (114) 94 11/25/17 08:00 62 11/25/17 04:00 55 11/25/17 04:00 97.6 61 20 150/73 (98) 95 11/25/17 00:44 Nasal Cannula 2.00 11/25/17 00:00 97.2 71 18 143/73 (96) 96 11/25/17 00:00 68 11/25/17 00:00 97.9 63 20 116/67 (83) 94 11/24/17 21:19 96 21 11/24/17 21:15 Nasal Cannula 2.00 11/24/17 20:00 97.2 76 20 136/78 (97) 96 11/24/17 20:00 80 11/24/17 18:25 78 11/24/17 18:00 Nasal Cannula 2.00 I/O 11/24/17 11/24/17 11/24/17 11/25/17 11/25/17 11/25/17 07:00 15:00 23:00 07:00 15:00 23:00 Intake Total 1404 ml 520 ml Balance 1404 ml 520 ml Intake Oral 480 ml 520 ml IV Total 924 ml # Voids 4 5 3 # Bowel Movements 1 1 Result Diagram: 11/24/17 0707 11/24/17 0707 Imaging Last Impressions Chest X-Ray 11/19/17 0600 Signed Impressions: Service Date/Time: Sunday, November 19, 2017 06:48 - CONCLUSION: Acute bibasilar airspace disease with subsegmental consolidation on the left. Emerson Hyde MD CT Angiography 11/14/17 1223 Signed Impressions: Service Date/Time: Tuesday, November 14, 2017 14:21 - CONCLUSION: 1. No evidence of pulmonary embolism. 2. Patchy parenchymal infiltrates in both lung bases, left greater than right. 3. Compensated cardiomegaly. Maksim Scanlon MD Objective Remarks GENERAL: Pleasant male awake and oriented CARDIOVASCULAR: Regular rate and rhythm. RESPIRATORY: does have some coarse breath sounds, no wheezing GASTROINTESTINAL: Abdomen soft, non-tender, nondistended. MUSCULOSKELETAL: Extremities without edema. No obvious deformities. NEUROLOGICAL: Awake and alert. Motor grossly within normal limits. Normal speech. 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 Patchy parenchymal infiltrates in both lung bases, left greater than right. Compensated cardiomegaly allergy read. -s/p zosyn and vanco IV and azithromycin. currently on levaquin per ID. s/p bronchoscopy. Bronchoscopy cultures normal carson but f/u until final. Pulmonology Dr. Shannon following. continue breathing treatments, supplemental oxygen as needed. Taper steroids. -Encouraged use of acapella and IS Pneumococcal and Legionella antigen in the urine are negative as well. Also check for MAC on IV solu-medrol and continue to taper History of Vasculitis with neuropathy --on his Lyrica 200 mg q 8 - on prednisone chronic as OP ( 7.5 mg ) - ff as OP by Dr. Díaz DM type 2 - states good readings at home on Prednisone 7.5 - ff blood sugars- here- expect to be up with IV solumedrol -ADA diet - continue on glipizide 5 mg po bid - HLIV. monitor BS. hold off on ISS as pt w labile BS - HbA1C 7.1 Hypertension- continue meds- on JULISA/diuretics GERD- on PPI and Carafate History of constipation on Linzess History of Migraine headaches - continue on Imitrex 6 mg sq daily prn - continue psych meds GI prophylaxis: PPI DVT prophylaxis: lovenox/Teds/SCDs Discharge Planning awaiting ID and pulm clearance continue to taper IV steroids and transition to po Mariam Frey MD Nov 25, 2017 17:54
--- NOTE | 2017-11-25 18:19 | HHI.IDPN ---
Note Infectious Disease Note Patient feels short of breath. States that his breathing is difficult. Continues to have occasional coughing spells. Afebrile. Culture of bronchoscopy sample shows normal carson 77-year-old white male who presented to the emergency department with respiratory symptoms. The patient does have cough and sputum production and shortness of breath for about a month. He was treated with 3 courses of antibiotics including Levaquin, doxycycline, and Z-DASHA. He did not improve and presented to emergency department. The patient has been on prednisone for vasculitis. He takes the prednisone daily. The patient and his report that they traveled from [place] about a month ago and when they got on the airplane to return to home from [place], that virtually everyone on the airplane was coughing. The patient had no problems with fever or chills, however. The patient states that he has had difficulty lying flat since he started having the problem and he has been coughing all day since the coughing began. PAST MEDICAL HISTORY: Depression, hyperlipidemia, allergic rhinitis, hypertension, gastroesophageal reflux disease, migraines, vasculitis, cerebrovascular accident in 2009 with minimal left lower extremity weakness, chronic low back pain, spinal stimulator which was replaced last year by fusion surgery, carotid artery surgery, left lower leg surgery. ALLERGIES: NO KNOWN DRUG ALLERGIES. MEDICATIONS: Current Medications Medications (Trade) Dose Ordered Sig/Nilsa Route PRN Reason Start Time Stop Time Status Last Admin Dose Admin Aspirin (Ecotrin Ec) 81 mg DAILY PO 11/15/17 09:00 11/25/17 09:13 Carbidopa/Levodopa (Sinemet 25-100 Mg) 1 tab Q8HR PO 11/14/17 22:00 11/25/17 13:37 Celecoxib (CeleBREX) 200 mg DAILY PO 11/15/17 09:00 11/25/17 09:13 Donepezil HCl (Aricept) 10 mg HS PO 11/14/17 21:00 11/24/17 20:44 Duloxetine HCl (Cymbalta Dr) 60 mg DAILY PO 11/15/17 09:00 11/25/17 09:13 Escitalopram Oxalate (Lexapro) 10 mg DAILY PO 11/15/17 09:00 11/25/17 09:14 Acetaminophen/ Hydrocodone Bitart ([place] 5-325 Mg) 1 tab Q6H PRN PO PAIN 1-10 11/14/17 16:00 Lisinopril (Prinivil) 10 mg DAILY PO 11/15/17 09:00 11/25/17 09:15 Sucralfate (Carafate) 1 gm QID PO 11/14/17 18:00 11/25/17 17:09 Temazepam (Restoril) 30 mg HS PRN PO INSOMNIA 11/14/17 16:00 11/24/17 23:22 Topiramate (Topamax) 25 mg BID PO 11/14/17 21:00 11/25/17 09:15 Triamterene/HCTZ (Maxzide 37.5-25 Mg) 0.5 tab DAILY PO 11/15/17 09:00 11/25/17 09:14 Pantoprazole Sodium (Protonix) 40 mg DAILY PO 11/15/17 09:00 11/25/17 09:15 Patient Own Medication PT OWN MED: MOVAN... DAILY PO 11/15/17 09:00 Future Hold Amylase/Lipase/ Protease (Creon 24-76-120) 1 cap TIDPC PO 11/14/17 18:30 11/25/17 17:09 Sodium Chloride (NS Flush) 2 ml UNSCH PRN IV FLUSH FLUSH AFTER USING IV ACCESS 11/14/17 16:15 Sodium Chloride (NS Flush) 2 ml BID IV FLUSH 11/14/17 21:00 11/23/17 20:57 Acetaminophen (Tylenol) 650 mg Q4H PRN PO TEMP > 100.4 11/14/17 16:15 Ondansetron HCl (Zofran Inj) 4 mg Q6H PRN IVP NAUSEA OR VOMITING 11/14/17 16:15 Enoxaparin Sodium (Lovenox Inj) 40 mg Q24H SQ 11/14/17 18:00 11/25/17 17:09 Naloxone HCl (Narcan Inj) 0.4 mg UNSCH PRN IV PUSH SEE LABEL COMMENTS 11/14/17 16:15 Senna/Docusate Sodium (Mili-Colace) 1 tab BID PO 11/14/17 21:00 11/25/17 09:14 Magnesium Hydroxide (Milk Of Magnesia Liq) 30 ml Q12H PRN PO Mild constipation 11/14/17 16:15 Sennosides (Senokot) 17.2 mg Q12H PRN PO Moderate constipation 11/14/17 16:15 Bisacodyl (Dulcolax Supp) 10 mg DAILY PRN RECTAL SEVERE CONSITIPATION 11/14/17 16:15 Lactulose (Lactulose Liq) 30 ml DAILY PRN PO SEVERE CONSITIPATION 11/14/17 16:15 Albuterol/ Ipratropium (Duoneb Neb) 1 ampule Q2HR NEB PRN NEB sob/wheezing 11/14/17 16:30 11/24/17 21:18 Patient Own Medication PT OWN MED: LINZ... DAILY PO 11/15/17 09:00 11/25/17 09:12 Pregabalin (Lyrica) 200 mg TID PO 11/15/17 18:00 11/25/17 17:09 Sumatriptan Succinate (Imitrex Inj) 6 mg DAILY PRN SQ MIGRAIN HEADACHE 11/15/17 16:30 11/16/17 20:14 Glipizide (Glucotrol) 5 mg BID@08,17 PO 11/15/17 17:00 11/25/17 17:08 Dextrose (D50w (Vial) Inj) 50 ml UNSCH PRN IV PUSH HYPOGLYCEMIA-SEE COMMENTS 11/15/17 16:45 11/23/17 09:52 Glucagon (Glucagon Inj) 1 mg UNSCH PRN OTHER HYPOGLYCEMIA-SEE COMMENTS 11/15/17 16:45 Guaifenesin/ Dextromethorphan (Robitussin Dm 200-20 Mg/10 ml Liq) 10 ml Q6H PRN PO cough 11/16/17 12:00 11/24/17 20:43 Sumatriptan Succinate (Imitrex Inj) 6 mg UNSCH PRN SQ MIGRAINE HEADACHE intractable 11/16/17 18:00 Acetaminophen/ Codeine Phosphate (Tylenol - Codeine 120-12 Liq) 5 ml Q4H PRN PO persistent cough 11/16/17 19:00 11/25/17 17:10 Guaifenesin (Mucinex Er) 600 mg BID PO 11/16/17 21:00 11/25/17 09:14 Fluconazole (Diflucan) 200 mg DAILY PO 11/23/17 09:00 11/25/17 09:13 Levofloxacin/ Dextrose 100 ml @ 100 mls/hr Q24H IV 11/22/17 17:00 11/25/17 17:07 Dextrose/Sodium Chloride 1,000 ml @ 0 mls/hr Q0M IV 11/22/17 17:00 Lactated Ringer's 1,000 ml @ 30 mls/hr Q24H PRN IV SEE LABEL COMMENTS 11/23/17 06:45 11/26/17 06:44 Sodium Chloride 500 ml @ 30 mls/hr [id number] PRN IV SEE LABEL COMMENTS 11/23/17 06:45 11/26/17 06:44 Povidone Iodine (Betadine 5% Antisepsis Kit) 1 applic FLASK FITTER PRN EACH NARE SEE LABEL COMMENTS 11/23/17 06:45 11/26/17 06:44 Chlorhexidine Gluconate (Chlorhexidine 2% Cloth) 3 pack FLASK FITTER PRN TOPICAL SEE LABEL COMMENTS 11/23/17 06:45 11/26/17 06:44 Albuterol/ Ipratropium (Duoneb Neb) 1 ampule Q4HR NEB NEB 11/25/17 16:00 11/25/17 15:50 Methylprednisolone Sodium Succinate (SoluMEDROL INJ) 40 mg TID IV PUSH 11/25/17 18:00 UNV SOCIAL HISTORY: The patient is . He smokes occasional cigar. Occasional social alcohol. No substance abuse. OBJECTIVE: Vital Signs Date Time Temp Pulse Resp B/P (MAP) Pulse Ox O2 Delivery O2 Flow Rate FiO2 11/25/17 16:10 Nasal Cannula 3.00 11/25/17 16:02 98.3 69 20 130/69 (89) 96 11/25/17 16:00 84 11/25/17 15:50 94 21 11/25/17 13:38 Nasal Cannula 3.00 Humidified 11/25/17 12:02 98.2 60 19 132/72 (92) 97 11/25/17 12:00 71 11/25/17 09:00 Room Air 11/25/17 08:02 98.6 71 19 168/87 (114) 94 11/25/17 08:00 62 11/25/17 04:00 55 11/25/17 04:00 97.6 61 20 150/73 (98) 95 11/25/17 00:44 Nasal Cannula 2.00 11/25/17 00:00 97.2 71 18 143/73 (96) 96 11/25/17 00:00 68 11/25/17 00:00 97.9 63 20 116/67 (83) 94 11/24/17 21:19 96 21 11/24/17 21:15 Nasal Cannula 2.00 11/24/17 20:00 97.2 76 20 136/78 (97) 96 11/24/17 20:00 80 11/24/17 18:25 78 Laboratory Tests Test 11/24/17 07:07 White Blood Count 8.6 TH/MM3 Red Blood Count 4.41 MIL/MM3 Hemoglobin 13.7 GM/DL Hematocrit 40.2 % Mean Corpuscular Volume 91.2 FL Mean Corpuscular Hemoglobin 31.1 PG Mean Corpuscular Hemoglobin Concent 34.1 % Red Cell Distribution Width 15.4 % Platelet Count 149 TH/MM3 Mean Platelet Volume 9.1 FL Neutrophils (%) (Auto) 86.0 % Lymphocytes (%) (Auto) 6.0 % Monocytes (%) (Auto) 7.9 % Eosinophils (%) (Auto) 0.0 % Basophils (%) (Auto) 0.1 % Neutrophils # (Auto) 7.4 TH/MM3 Lymphocytes # (Auto) 0.5 TH/MM3 Monocytes # (Auto) 0.7 TH/MM3 Eosinophils # (Auto) 0.0 TH/MM3 Basophils # (Auto) 0.0 TH/MM3 CBC Comment DIFF FINAL Differential Comment Laboratory Tests Test 11/24/17 07:07 Blood Urea Nitrogen 31 MG/DL Creatinine 1.28 MG/DL Random Glucose 280 MG/DL Calcium Level 7.8 MG/DL Sodium Level 136 MEQ/L Potassium Level 4.0 MEQ/L Chloride Level 105 MEQ/L Carbon Dioxide Level 20.9 MEQ/L Anion Gap 10 MEQ/L Estimat Glomerular Filtration Rate 55 ML/MIN Hemoglobin A1c 7.1 % Microbiology Date/Time Source Procedure Growth Status 11/23/17 15:11 Bronchial Washings Bronchial Fungal Smear - Final NO FUNGAL ELEMENTS SEEN. Resulted 11/23/17 15:11 Bronchial Washings Bronchial Fungal Culture Pending Resulted 11/23/17 15:11 Bronchial Washings Bronchial Acid Fast Stain - Final NO ACID FAST BACILLI SEEN Resulted 11/23/17 15:11 Bronchial Washings Bronchial Mycobacterial Culture Pending Resulted 11/23/17 15:11 Bronchial Washings Bronchial Gram Stain - Final Complete 11/23/17 15:11 Bronchial Washings Bronchial Bronchial Culture - Final HEAVY GROWTH NORMAL RESPIRATORY CARSON Complete IMAGING: Chest X-Ray 11/19/17 0600 Signed Impressions: Service Date/Time: Sunday, November 19, 2017 06:48 - CONCLUSION: Acute bibasilar airspace disease with subsegmental consolidation on the left. Emerson Hyde MD CT Angiography 11/14/17 1223 Signed Impressions: Service Date/Time: Tuesday, November 14, 2017 14:21 - CONCLUSION: 1. No evidence of pulmonary embolism. 2. Patchy parenchymal infiltrates in both lung bases, left greater than right. 3. Compensated cardiomegaly. Maksim Scanlon MD CT Angiography 11/14/17 1223 Signed Impressions: Service Date/Time: Tuesday, November 14, 2017 14:21 - CONCLUSION: 1. No evidence of pulmonary embolism. 2. Patchy parenchymal infiltrates in both lung bases, left greater than right. 3. Compensated cardiomegaly. Maksim Scanlon MD PHYSICAL EXAMINATION: GENERAL: Awake and alert. No acute distress. HEENT: Extraocular movements grossly intact, pupils reactive to light. No icterus. OROPHARYNX: Moist mucosa. No lesions. NECK: Supple without adenopathy. LUNGS: Bilateral coarse breath sounds. HEART: Irregular rate and rhythm. No murmurs, rubs, or gallops. ABDOMEN: Bowel sounds present, soft, no tenderness. EXTREMITIES: No clubbing, cyanosis, or edema. SKIN: Mild reddish hue to the skin of the legs. Otherwise, no diffuse rash. NEUROLOGIC: No gross focal findings. PSYCHIATRIC: Calm and cooperative. IMPRESSION: 1. Pneumonia. ? etiology. Patient with respiratory symptoms with cough and dyspnea on exertion and CT scan shows patchy focal infiltrates in both lung bases. Post bronchoscopy and bronc specimen culture negative. 2. Failed outpatient treatment with oral antibiotic; doxycycline, Levaquin, and azithromycin. 3. Acute kidney disease, mild. RECOMMENDATIONS: 1. Continue Levaquin. 2. Continue fluconazole. 3. Follow clinical status. 4. Repeat chest x-ray in a.m. Since cultures have remained negative, it is difficult to determine The most appropriate antibiotic treatment in this case. It is not clear that the Changes on the radiographic studies is due to infection. If he is cleared for discharge by pulmonary may want to just continue the current antibiotics that he is receiving for another week and have him follow-up with pulmonary outpatient., Mack Hodgson MD Nov 25, 2017 18:19
[2017-11-25] MEDS: DONEPEZIL HCL 5 MG TAB PO SCH (21:09)
[2017-11-25] MEDS: TEMAZEPAM 15 MG CAP PO PRN (23:12)
[2017-11-26] VITALS (10 sets, daily range): BP systolic 122–156; BP diastolic 60–75; PULSE 61–86; RESP 16–19; TEMP 97.4–98.8; O2SAT 94–99
[2017-11-26] MEDS: ACETAMINOPHEN/CODEINE ELIX 120 MG/12 MG/5 ML CUP PO PRN ×2 (01:23→21:39)
[2017-11-26] MEDS: CARBIDOPA/LEVODOPA 25 MG/100 MG TAB PO SCH ×3 (05:52→21:38)
[2017-11-26] MEDS: LINZESS 145 MCG PO SCH ×2 (05:58→08:53)
--- NOTE | 2017-11-26 07:12 | RADRPT ---
EXAM DATE/TIME: 11/26/2017 06:09 [facility] COMPARISON: CHEST SINGLE AP, November 19, 2017, 6:48. INDICATIONS : Short of breath, evaluate pneumonia MEDICAL HISTORY : CVA, Parkinsons disease, coronary artery disease SURGICAL HISTORY : Appendectomy. Carotid endarterectomy. ENCOUNTER: Subsequent ACUITY: 1 month PAIN SCORE: 0/10 LOCATION: Bilateral chest FINDINGS: Left basilar airspace disease has almost completely cleared. Mild right basilar airspace disease has completely cleared. Heart and mediastinal structures are stable Osseous structures remain intact. CONCLUSION: Clearing bibasilar airspace disease as described above. Otherwise stable chest. Emerson Hyde MD on November 26, 2017 at 7:10 Board Certified Radiologist. This report was verified electronically.
[2017-11-26 07:41] LABS: BICARBONATE 27.4 MEQ/L (21.0-32.0); CREATININE 1.29 MG/DL (0.60-1.30)
[2017-11-26 07:51] LABS: AUTOMATED NEUTROPHIL # 7.6 TH/MM3 (1.8-7.7); HEMATOCRIT 40.6 % (39.0-51.0); HEMOGLOBIN 13.9 GM/DL (13.0-17.0); LYMPH % 6.4 % (9.0-44.0); LYMPHOCYTE # 0.6 TH/MM3 (1.0-4.8); MEAN CELL VOLUME 91.7 FL (80.0-100.0); MEAN CORPUSCULAR HEMOGLOBIN 31.4 PG (27.0-34.0); MEAN CORPUSCULAR HGB CONC 34.3 % (32.0-36.0); MEAN PLATELET VOLUME 8.9 FL (7.0-11.0); MONO % 7.9 % (0.0-8.0); MONOCYTE # 0.7 TH/MM3 (0-0.9); NEUT % 85.7 % (16.0-70.0); PLATELET COUNT 140 TH/MM3 (150-450); RED BLOOD COUNT 4.43 MIL/MM3 (4.50-5.90); RED CELL DISTRIBUTION WIDTH 15.3 % (11.6-17.2); WHITE BLOOD COUNT 8.8 TH/MM3 (4.0-11.0)
[2017-11-26] MEDS: RESP: ALBUTEROL 2.5 MG/IPRATROPIUM 0.5 MG NEB (SCH) NEB ×4 (08:47→21:10)
[2017-11-26] MEDS: ESCITALOPRAM OXALATE 10 MG TAB PO SCH (08:51)
[2017-11-26] MEDS: FLUCONAZOLE 200 MG TAB PO SCH (08:51)
[2017-11-26] MEDS: ASPIRIN EC 81 MG TABEC PO SCH (08:51)
[2017-11-26] MEDS: guaiFENesin/DEXTROMETHORPHAN 200 MG/20 MG/10 ML CUP PO PRN ×3 (08:51→16:50)
[2017-11-26] MEDS: methylPREDNISolone SOD SUCC 40 MG/1 ML VIAL IV PUSH SCH ×3 (08:51→17:01)
[2017-11-26] MEDS: SUCRALFATE 1 GM TAB PO SCH ×4 (08:52→21:38)
[2017-11-26] MEDS: PREGABALIN 100 MG CAP PO SCH ×3 (08:52→17:01)
[2017-11-26] MEDS: LISINOPRIL 10 MG TAB PO SCH (08:52)
[2017-11-26] MEDS: CELECOXIB 200 MG CAP PO SCH (08:52)
[2017-11-26] MEDS: guaiFENesin E.R. 600 MG TAB PO SCH ×2 (08:52→21:38)
[2017-11-26] MEDS: PANTOPRAZOLE SOD 40 MG DELAYED RELEASE TAB PO SCH (08:52)
[2017-11-26] MEDS: DULoxetine HCl DR 60 MG CAP PO SCH (08:52)
[2017-11-26] MEDS: DOCUSATE SODIUM 50 MG/SENNA 8.6 MG TAB PO SCH ×2 (08:52→21:38)
[2017-11-26] MEDS: LIPASE/PROTEASE/AMYLASE (24,000/76,000/120,000) CAP PO SCH ×3 (08:52→17:01)
[2017-11-26] MEDS: glipiZIDE 5 MG TAB PO SCH ×2 (08:52→16:50)
[2017-11-26] MEDS: TRIAMTERENE/HCTZ 37.5 MG/25 MG TAB PO SCH (08:53)
[2017-11-26] MEDS: SODIUM CHLORIDE 0.9% FLUSH 10 ML FLUSH IV FLUSH SCH ×2 (08:53→21:47)
[2017-11-26] MEDS: TOPIRAMATE 25 MG TAB PO SCH ×2 (08:53→21:38)
--- NOTE | 2017-11-26 12:44 | HHI.PR ---
Subjective Remarks Nursing denies any deterioration since last night. Patient says that his respiratory efforts are not back to baseline before he got sick. He was noted to be walking up and down the hallways but the patient says he does this every day even at home. Objective Vital Signs Date Time Temp Pulse Resp B/P (MAP) Pulse Ox O2 Delivery O2 Flow Rate FiO2 11/26/17 08:00 97.6 66 16 156/75 (102) 99 11/26/17 04:00 97.9 62 18 122/60 (80) 94 11/26/17 01:15 Nasal Cannula 3.00 11/26/17 00:00 70 11/26/17 00:00 98.8 61 19 124/63 (83) 95 11/25/17 20:00 72 11/25/17 20:00 98.0 70 18 139/67 (91) 98 11/25/17 16:10 Nasal Cannula 3.00 11/25/17 16:02 98.3 69 20 130/69 (89) 96 11/25/17 16:00 84 11/25/17 15:50 94 21 11/25/17 13:38 Nasal Cannula 3.00 Humidified I/O 11/25/17 11/25/17 11/25/17 11/26/17 11/26/17 11/26/17 07:00 15:00 23:00 07:00 15:00 23:00 Intake Total 520 ml 240 ml Output Total 800 ml Balance -280 ml 240 ml Intake Oral 520 ml 240 ml Output Urine Total 800 ml # Voids 3 4 # Bowel Movements 1 1 0 Result Diagram: 11/26/17 0656 11/26/17 0656 Objective Remarks BL Expiratory wheezing and rhonchi heard, unlabored breathing, no cyanosis, no acute distress A/P Assessment and Plan 77 years old male Bilateral PNA outpatient failed treatment, prior recent hospitalization Immunocompromised patient is on chronic prednisone use (7.5 mg dose ) due to vasculitis, he follows with therapy assistant outpatient COPD with exacerbation improving -CT pulmonary angiogram reviewed: No evidence of PE. Patchy parenchymal infiltrates in both lung bases, left greater than right. Compensated cardiomegaly allergy read. -currently on levaquin per ID. s/p bronchoscopy. Bronchoscopy cultures normal carson but f/u until final. Pulmonology Dr. Shannon following. continue breathing treatments, supplemental oxygen as needed. Taper steroids. IV solu-medrol and continue to taper per pulmonology History of Vasculitis with neuropathy --on his Lyrica - on prednisone chronic as OP ( 7.5 mg ) - ff as OP by Dr. Díaz DM type 2 - states good readings at home on Prednisone 7.5 - ff blood sugars- here- expect to be up with IV solumedrol -ADA diet - continue on glipizide 5 mg po bid - HLIV. monitor BS. starting LDSS - HbA1C 7.1 Hypertension- continue meds- on JULISA/diuretics GERD- on PPI and Carafate History of constipation on Linzess History of Migraine headaches - continue on Imitrex 6 mg sq daily prn - continue psych meds GI prophylaxis: PPI DVT prophylaxis: lovenox/Teds/SCDs Discharge Planning awaiting ID and pulm clearance continue to taper IV steroids Favian Dey MD Nov 26, 2017 12:44
[2017-11-26] MEDS ORDERED: DEXTROSE 50% IN WATER 50 ML VIAL(D50) IV PUSH PRN (12:45)
[2017-11-26] MEDS ORDERED: GLUCAGON 1 MG/ML VIAL OTHER PRN (12:45)
--- NOTE | 2017-11-26 16:15 | HHI.PR ---
Subjective Remarks alert on o2 CXRAY CLEARING Objective Vital Signs Date Time Temp Pulse Resp B/P (MAP) Pulse Ox O2 Delivery O2 Flow Rate FiO2 11/26/17 12:28 86 11/26/17 12:00 97.4 75 18 130/68 (88) 94 11/26/17 08:00 97.6 66 16 156/75 (102) 99 11/26/17 04:00 97.9 62 18 122/60 (80) 94 11/26/17 01:15 Nasal Cannula 3.00 11/26/17 00:00 70 11/26/17 00:00 98.8 61 19 124/63 (83) 95 11/25/17 20:00 72 11/25/17 20:00 98.0 70 18 139/67 (91) 98 I/O 11/25/17 11/25/17 11/25/17 11/26/17 11/26/17 11/26/17 07:00 15:00 23:00 07:00 15:00 23:00 Intake Total 520 ml 240 ml Output Total 800 ml Balance -280 ml 240 ml Intake Oral 520 ml 240 ml Output Urine Total 800 ml # Voids 3 4 # Bowel Movements 1 1 0 Result Diagram: 11/26/17 0656 11/26/17 0656 Objective Remarks GENERAL: SKIN: Warm and dry. HEAD: Atraumatic. Normocephalic. EYES: Pupils equal and round. No scleral icterus. No injection or drainage. ENT: No nasal bleeding or discharge. Mucous membranes pink and moist. NECK: Trachea midline. No JVD. CARDIOVASCULAR: Regular rate and rhythm. RESPIRATORY: No accessory muscle use. SCATTERED RHONCHI . Breath sounds equal bilaterally. GASTROINTESTINAL: Abdomen soft, non-tender, nondistended. Hepatic and splenic margins not palpable. MUSCULOSKELETAL: Extremities without clubbing, cyanosis, or edema. No obvious deformities. NEUROLOGICAL: Awake and alert. No obvious cranial nerve deficits. Motor grossly within normal limits. Five out of 5 muscle strength in the arms and legs. Normal speech. PSYCHIATRIC: Appropriate mood and affect; insight and judgment normal. Assessment and Plan Assessment and Plan RESPIRATORY FAILURE PNA PLAN O2 ANTIBX F/U CXRAY INCREASE ACTIVITY Ramos Beasley MD Nov 26, 2017 16:15
[2017-11-26] MEDS: LEVOFLOXACIN 500 MG PREMIX INJ 100 ML IV SCH (16:17)
[2017-11-26] MEDS: INSULIN NovoLIN REGULAR SUPPLEMENTAL SCALE SQ SCH ×2 (17:37→21:40)
[2017-11-26] MEDS: ENOXAPARIN SODIUM 40 MG/0.4 ML SYRINGE SQ SCH (17:57)
--- NOTE | 2017-11-26 18:34 | HHI.IDPN ---
Note Infectious Disease Note Patient still has shortness of breath. He feels better with breathing treatments. Coughing and producing phlegm. Afebrile. Culture of bronchoscopy sample shows normal carson 77-year-old white male who presented to the emergency department with respiratory symptoms. The patient does have cough and sputum production and shortness of breath for about a month. He was treated with 3 courses of antibiotics including Levaquin, doxycycline, and Z-DASHA. He did not improve and presented to emergency department. The patient has been on prednisone for vasculitis. He takes the prednisone daily. The patient and his report that they traveled from [place] about a month ago and when they got on the airplane to return to home from [place], that virtually everyone on the airplane was coughing. The patient had no problems with fever or chills, however. The patient states that he has had difficulty lying flat since he started having the problem and he has been coughing all day since the coughing began. PAST MEDICAL HISTORY: Depression, hyperlipidemia, allergic rhinitis, hypertension, gastroesophageal reflux disease, migraines, vasculitis, cerebrovascular accident in 2009 with minimal left lower extremity weakness, chronic low back pain, spinal stimulator which was replaced last year by fusion surgery, carotid artery surgery, left lower leg surgery. ALLERGIES: NO KNOWN DRUG ALLERGIES. MEDICATIONS: Current Medications Medications (Trade) Dose Ordered Sig/Nilsa Route PRN Reason Start Time Stop Time Status Last Admin Dose Admin Aspirin (Ecotrin Ec) 81 mg DAILY PO 11/15/17 09:00 11/26/17 08:51 Carbidopa/Levodopa (Sinemet 25-100 Mg) 1 tab Q8HR PO 11/14/17 22:00 11/26/17 13:29 Celecoxib (CeleBREX) 200 mg DAILY PO 11/15/17 09:00 11/26/17 08:52 Donepezil HCl (Aricept) 10 mg HS PO 11/14/17 21:00 11/25/17 21:09 Duloxetine HCl (Cymbalta Dr) 60 mg DAILY PO 11/15/17 09:00 11/26/17 08:52 Escitalopram Oxalate (Lexapro) 10 mg DAILY PO 11/15/17 09:00 11/26/17 08:51 Acetaminophen/ Hydrocodone Bitart (Ashton 5-325 Mg) 1 tab Q6H PRN PO PAIN 1-10 11/14/17 16:00 Lisinopril (Prinivil) 10 mg DAILY PO 11/15/17 09:00 11/26/17 08:52 Sucralfate (Carafate) 1 gm QID PO 11/14/17 18:00 11/26/17 17:01 Temazepam (Restoril) 30 mg HS PRN PO INSOMNIA 11/14/17 16:00 11/25/17 23:12 Topiramate (Topamax) 25 mg BID PO 11/14/17 21:00 11/26/17 08:53 Triamterene/HCTZ (Maxzide 37.5-25 Mg) 0.5 tab DAILY PO 11/15/17 09:00 11/26/17 08:53 Pantoprazole Sodium (Protonix) 40 mg DAILY PO 11/15/17 09:00 11/26/17 08:52 Patient Own Medication PT OWN MED: MOVAN... DAILY PO 11/15/17 09:00 Future Hold Amylase/Lipase/ Protease (Creon 24-76-120) 1 cap TIDPC PO 11/14/17 18:30 11/26/17 17:01 Sodium Chloride (NS Flush) 2 ml UNSCH PRN IV FLUSH FLUSH AFTER USING IV ACCESS 11/14/17 16:15 Sodium Chloride (NS Flush) 2 ml BID IV FLUSH 11/14/17 21:00 11/26/17 08:53 Acetaminophen (Tylenol) 650 mg Q4H PRN PO TEMP > 100.4 11/14/17 16:15 Ondansetron HCl (Zofran Inj) 4 mg Q6H PRN IVP NAUSEA OR VOMITING 11/14/17 16:15 Enoxaparin Sodium (Lovenox Inj) 40 mg Q24H SQ 11/14/17 18:00 11/26/17 17:57 Naloxone HCl (Narcan Inj) 0.4 mg UNSCH PRN IV PUSH SEE LABEL COMMENTS 11/14/17 16:15 Senna/Docusate Sodium (Mili-Colace) 1 tab BID PO 11/14/17 21:00 11/26/17 08:52 Magnesium Hydroxide (Milk Of Magnesia Liq) 30 ml Q12H PRN PO Mild constipation 11/14/17 16:15 Sennosides (Senokot) 17.2 mg Q12H PRN PO Moderate constipation 11/14/17 16:15 Bisacodyl (Dulcolax Supp) 10 mg DAILY PRN RECTAL SEVERE CONSITIPATION 11/14/17 16:15 Lactulose (Lactulose Liq) 30 ml DAILY PRN PO SEVERE CONSITIPATION 11/14/17 16:15 Albuterol/ Ipratropium (Duoneb Neb) 1 ampule Q2HR NEB PRN NEB sob/wheezing 11/14/17 16:30 11/24/17 21:18 Patient Own Medication PT OWN MED: LINZ... DAILY PO 11/15/17 09:00 11/26/17 08:53 Pregabalin (Lyrica) 200 mg TID PO 11/15/17 18:00 11/26/17 17:01 Sumatriptan Succinate (Imitrex Inj) 6 mg DAILY PRN SQ MIGRAIN HEADACHE 11/15/17 16:30 11/16/17 20:14 Glipizide (Glucotrol) 5 mg BID@08,17 PO 11/15/17 17:00 11/26/17 16:50 Guaifenesin/ Dextromethorphan (Robitussin Dm 200-20 Mg/10 ml Liq) 10 ml Q6H PRN PO cough 11/16/17 12:00 11/26/17 16:50 Sumatriptan Succinate (Imitrex Inj) 6 mg UNSCH PRN SQ MIGRAINE HEADACHE intractable 11/16/17 18:00 Acetaminophen/ Codeine Phosphate (Tylenol - Codeine 120-12 Liq) 5 ml Q4H PRN PO persistent cough 11/16/17 19:00 11/26/17 01:23 Guaifenesin (Mucinex Er) 600 mg BID PO 11/16/17 21:00 11/26/17 08:52 Fluconazole (Diflucan) 200 mg DAILY PO 11/23/17 09:00 11/26/17 08:51 Levofloxacin/ Dextrose 100 ml @ 100 mls/hr Q24H IV 11/22/17 17:00 11/26/17 16:17 Dextrose/Sodium Chloride 1,000 ml @ 0 mls/hr Q0M IV 11/22/17 17:00 Albuterol/ Ipratropium (Duoneb Neb) 1 ampule Q4HR NEB NEB 11/25/17 16:00 3/9/18 16:27 Methylprednisolone Sodium Succinate (SoluMEDROL INJ) 40 mg TID IV PUSH 11/26/17 09:00 11/26/17 17:01 Dextrose (D50w (Vial) Inj) 50 ml UNSCH PRN IV PUSH HYPOGLYCEMIA-SEE COMMENTS 11/26/17 12:45 Glucagon (Glucagon Inj) 1 mg UNSCH PRN OTHER HYPOGLYCEMIA-SEE COMMENTS 11/26/17 12:45 Insulin Human Regular (NovoLIN R SUPPLEMENTAL SCALE) 1 ACHS SLIDING SCALE SQ 11/26/17 17:00 11/26/17 17:37 SOCIAL HISTORY: The patient is . He smokes occasional cigar. Occasional social alcohol. No substance abuse. OBJECTIVE: Vital Signs Date Time Temp Pulse Resp B/P (MAP) Pulse Ox O2 Delivery O2 Flow Rate FiO2 11/26/17 16:21 81 11/26/17 16:00 98.1 79 18 150/73 (98) 97 11/26/17 12:28 86 11/26/17 12:00 97.4 75 18 130/68 (88) 94 11/26/17 08:00 97.6 66 16 156/75 (102) 99 11/26/17 04:00 97.9 62 18 122/60 (80) 94 11/26/17 01:15 Nasal Cannula 3.00 11/26/17 00:00 70 11/26/17 00:00 98.8 61 19 124/63 (83) 95 11/25/17 20:00 72 11/25/17 20:00 98.0 70 18 139/67 (91) 98 Laboratory Tests Test 11/26/17 06:56 White Blood Count 8.8 TH/MM3 Red Blood Count 4.43 MIL/MM3 Hemoglobin 13.9 GM/DL Hematocrit 40.6 % Mean Corpuscular Volume 91.7 FL Mean Corpuscular Hemoglobin 31.4 PG Mean Corpuscular Hemoglobin Concent 34.3 % Red Cell Distribution Width 15.3 % Platelet Count 140 TH/MM3 Mean Platelet Volume 8.9 FL Neutrophils (%) (Auto) 85.7 % Lymphocytes (%) (Auto) 6.4 % Monocytes (%) (Auto) 7.9 % Eosinophils (%) (Auto) 0.0 % Basophils (%) (Auto) 0.0 % Neutrophils # (Auto) 7.6 TH/MM3 Lymphocytes # (Auto) 0.6 TH/MM3 Monocytes # (Auto) 0.7 TH/MM3 Eosinophils # (Auto) 0.0 TH/MM3 Basophils # (Auto) 0.0 TH/MM3 CBC Comment DIFF FINAL Differential Comment Laboratory Tests Test 11/26/17 06:56 Blood Urea Nitrogen 27 MG/DL Creatinine 1.29 MG/DL Random Glucose 242 MG/DL Calcium Level 8.0 MG/DL Sodium Level 138 MEQ/L Potassium Level 4.1 MEQ/L Chloride Level 103 MEQ/L Carbon Dioxide Level 27.4 MEQ/L Anion Gap 8 MEQ/L Estimat Glomerular Filtration Rate 54 ML/MIN IMAGING: Chest X-Ray 11/26/17599 Signed Impressions: Service Date/Time: Sunday, November 26, 2017 06:09 - CONCLUSION: Clearing bibasilar airspace disease as described above. Otherwise stable chest. Emerson Hyde MD Chest X-Ray 11/19/17599 Signed Impressions: Service Date/Time: Sunday, November 19, 2017 06:48 - CONCLUSION: Acute bibasilar airspace disease with subsegmental consolidation on the left. Emerson Hyde MD CT Angiography 11/14/17 1223 Signed Impressions: Service Date/Time: Tuesday, November 14, 2017 14:21 - CONCLUSION: 1. No evidence of pulmonary embolism. 2. Patchy parenchymal infiltrates in both lung bases, left greater than right. 3. Compensated cardiomegaly. Maksim Scanlon MD CT Angiography 11/14/17 1223 Signed Impressions: Service Date/Time: Tuesday, November 14, 2017 14:21 - CONCLUSION: 1. No evidence of pulmonary embolism. 2. Patchy parenchymal infiltrates in both lung bases, left greater than right. 3. Compensated cardiomegaly. Maskim Scanlon MD PHYSICAL EXAMINATION: GENERAL: Awake and alert. No acute distress. HEENT: Extraocular movements grossly intact, pupils reactive to light. No icterus. OROPHARYNX: Moist mucosa. No lesions. NECK: Supple without adenopathy. LUNGS: Bilateral coarse breath sounds. HEART: Irregular rate and rhythm. No murmurs, rubs, or gallops. ABDOMEN: Bowel sounds present, soft, no tenderness. EXTREMITIES: No clubbing, cyanosis, or edema. SKIN: Mild reddish hue to the skin of the legs. Otherwise, no diffuse rash. NEUROLOGIC: No gross focal findings. PSYCHIATRIC: Calm and cooperative. IMPRESSION: 1. Pneumonia. ? etiology. Patient with respiratory symptoms with cough and dyspnea on exertion and CT scan shows patchy focal infiltrates in both lung bases. Post bronchoscopy and bronc specimen culture negative. Chest x-ray shows clearing of infiltrates. 2. Failed outpatient treatment with oral antibiotic; doxycycline, Levaquin, and azithromycin. 3. Acute kidney disease, mild. RECOMMENDATIONS: 1. Continue Levaquin. 2. Continue fluconazole. 3. Follow clinical status. Since cultures have remained negative, it is difficult to determine The most appropriate antibiotic treatment in this case. It is not clear that the Changes on the radiographic studies is due to infection. If he is cleared for discharge by pulmonary may want to just continue the current antibiotics that he is receiving for another week and have him follow-up with pulmonary outpatient., Mack Hodgson MD Nov 26, 2017 18:34
[2017-11-26] MEDS: DONEPEZIL HCL 5 MG TAB PO SCH (21:38)
[2017-11-26] MEDS: SUMAtriptan INJ 6 MG/0.5 ML VIAL SQ PRN (21:40)
[2017-11-26] MEDS: TEMAZEPAM 15 MG CAP PO PRN (23:16)
[2017-11-27] VITALS (12 sets, daily range): BP systolic 120–151; BP diastolic 58–75; PULSE 56–82; RESP 18–20; TEMP 97.2–98; O2SAT 94–99
[2017-11-27] MEDS: RESP: ALBUTEROL 2.5 MG/IPRATROPIUM 0.5 MG NEB (SCH) NEB ×7 (00:05→23:43)
[2017-11-27] MEDS: ACETAMINOPHEN/CODEINE ELIX 120 MG/12 MG/5 ML CUP PO PRN ×4 (02:48→20:42)
[2017-11-27] MEDS: CARBIDOPA/LEVODOPA 25 MG/100 MG TAB PO SCH ×3 (06:41→20:43)
[2017-11-27] MEDS: LINZESS 145 MCG PO SCH (06:45)
[2017-11-27] MEDS: INSULIN NovoLIN REGULAR SUPPLEMENTAL SCALE SQ SCH ×4 (08:00→21:00)
[2017-11-27] MEDS: TOPIRAMATE 25 MG TAB PO SCH ×2 (09:03→20:42)
[2017-11-27] MEDS: DULoxetine HCl DR 60 MG CAP PO SCH (09:03)
[2017-11-27] MEDS: PANTOPRAZOLE SOD 40 MG DELAYED RELEASE TAB PO SCH (09:03)
[2017-11-27] MEDS: LIPASE/PROTEASE/AMYLASE (24,000/76,000/120,000) CAP PO SCH ×3 (09:03→17:17)
[2017-11-27] MEDS: SUCRALFATE 1 GM TAB PO SCH ×4 (09:03→20:42)
[2017-11-27] MEDS: guaiFENesin E.R. 600 MG TAB PO SCH ×2 (09:04→20:42)
[2017-11-27] MEDS: TRIAMTERENE/HCTZ 37.5 MG/25 MG TAB PO SCH (09:04)
[2017-11-27] MEDS: LISINOPRIL 10 MG TAB PO SCH (09:04)
[2017-11-27] MEDS: glipiZIDE 5 MG TAB PO SCH ×2 (09:04→17:17)
[2017-11-27] MEDS: CELECOXIB 200 MG CAP PO SCH (09:04)
[2017-11-27] MEDS: FLUCONAZOLE 200 MG TAB PO SCH (09:04)
[2017-11-27] MEDS: ESCITALOPRAM OXALATE 10 MG TAB PO SCH (09:04)
[2017-11-27] MEDS: DOCUSATE SODIUM 50 MG/SENNA 8.6 MG TAB PO SCH ×2 (09:05→20:42)
[2017-11-27] MEDS: ASPIRIN EC 81 MG TABEC PO SCH (09:05)
[2017-11-27] MEDS: PREGABALIN 100 MG CAP PO SCH ×4 (09:05→17:17)
[2017-11-27] MEDS: SODIUM CHLORIDE 0.9% FLUSH 10 ML FLUSH IV FLUSH SCH ×2 (09:08→20:43)
[2017-11-27] MEDS: methylPREDNISolone SOD SUCC 40 MG/1 ML VIAL IV PUSH SCH ×3 (09:08→17:18)
--- NOTE | 2017-11-27 11:32 | HHI.PR ---
Subjective Remarks Nursing denies any deterioration since last night. Patient says that his respiratory efforts are not back to baseline before he got sick. He was noted to be walking up and down the hallways but the patient says he does this every day even at home. Objective Vital Signs Date Time Temp Pulse Resp B/P (MAP) Pulse Ox O2 Delivery O2 Flow Rate FiO2 11/27/17 08:15 98 Nasal Cannula 2.00 11/27/17 08:00 97.4 82 20 120/66 (84) 96 11/27/17 04:12 98 Nasal Cannula 2.00 11/27/17 04:00 Nasal Cannula 3.00 11/27/17 04:00 97.2 62 18 127/65 (85) 95 11/27/17 04:00 64 11/27/17 00:05 99 Nasal Cannula 2.00 11/27/17 00:00 Nasal Cannula 3.00 11/27/17 00:00 97.9 56 19 120/58 (78) 96 11/27/17 00:00 68 11/26/17 21:13 95 Nasal Cannula 3.00 11/26/17 21:00 Nasal Cannula 3.00 11/26/17 20:00 98.0 80 16 135/72 (93) 95 11/26/17 19:56 76 11/26/17 16:21 81 11/26/17 16:00 98.1 79 18 150/73 (98) 97 11/26/17 12:28 86 11/26/17 12:00 97.4 75 18 130/68 (88) 94 I/O 11/26/17 11/26/17 11/26/17 11/27/17 11/27/17 11/27/17 06:59 14:59 22:59 06:59 14:59 22:59 Intake Total 240 ml 720 ml 5000 ml Balance 240 ml 720 ml 5000 ml Intake Oral 240 ml 720 ml 5000 ml # Voids 4 8 10 # Bowel Movements 0 2 Result Diagram: 11/26/1756 11/26/17 06 Objective Remarks BL Expiratory wheezing and rhonchi heard unchanged from yesterday, unlabored breathing, no cyanosis, no acute distress A/P Assessment and Plan 77 years old male Bilateral PNA outpatient failed treatment, prior recent hospitalization Immunocompromised patient is on chronic prednisone use (7.5 mg dose ) due to vasculitis, 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 - Pulmonology following. continue breathing treatments, supplemental oxygen as needed. Taper steroids. IV solu-medrol and continue to taper per pulmonology History of Vasculitis with neuropathy - Lyrica - on prednisone chronic as OP ( 7.5 mg ) - ff as OP by Dr. Díaz DM type 2 - home glipizide - HLIV. monitor BS. LDSS - HbA1C 7.1 Hypertension- continue meds- on JULISA/diuretics GERD- on PPI and Carafate constipation - Linzess Migraine headaches - continue on Imitrex 6 mg sq daily prn - continue psych meds DVT prophylaxis: lovenox Discharge Planning awaiting ID and pulm clearance; anticipate dc 11/29/17 continue to taper IV steroids Favian Dey MD Nov 27, 2017 11:32
--- NOTE | 2017-11-27 12:43 | HHI.PR ---
Subjective Remarks Patient is on 2L oxygen reports more SOB today. Afebrile. CXR yesterday clearing bibasilar airspace disease Objective Vital Signs Vital Signs Date Time Temp Pulse Resp B/P (MAP) Pulse Ox O2 Delivery O2 Flow Rate FiO2 11/27/17 08:15 98 Nasal Cannula 2.00 11/27/17 08:00 97.4 82 20 120/66 (84) 96 11/27/17 04:12 98 Nasal Cannula 2.00 11/27/17 04:00 Nasal Cannula 3.00 11/27/17 04:00 97.2 62 18 127/65 (85) 95 11/27/17 04:00 64 11/27/17 00:05 99 Nasal Cannula 2.00 11/27/17 00:00 Nasal Cannula 3.00 11/27/17 00:00 97.9 56 19 120/58 (78) 96 11/27/17 00:00 68 11/26/17 21:13 95 Nasal Cannula 3.00 11/26/17 21:00 Nasal Cannula 3.00 11/26/17 20:00 98.0 80 16 135/72 (93) 95 11/26/17 19:56 76 11/26/17 16:21 81 11/26/17 16:00 98.1 79 18 150/73 (98) 97 I/O 11/26/17 11/26/17 11/26/17 11/27/17 11/27/17 11/27/17 07:00 15:00 23:00 07:00 15:00 23:00 Intake Total 240 ml 720 ml 5000 ml Balance 240 ml 720 ml 5000 ml Intake Oral 240 ml 720 ml 5000 ml # Voids 4 8 10 # Bowel Movements 0 2 Result Diagram: 11/26/17 0656 11/26/17 0656 Other Results Last Impressions Chest X-Ray 11/26/17 0600 Signed Impressions: Service Date/Time: Sunday, November 26, 2017 06:09 - CONCLUSION: Clearing bibasilar airspace disease as described above. Otherwise stable chest. Emerson Hyde MD CT Angiography 11/14/17 1223 Signed Impressions: Service Date/Time: Tuesday, November 14, 2017 14:21 - CONCLUSION: 1. No evidence of pulmonary embolism. 2. Patchy parenchymal infiltrates in both lung bases, left greater than right. 3. Compensated cardiomegaly. Maksim Scanlon MD Objective Remarks GENERAL: Patient is 77 yo lying in bed in mild resp distress SKIN: Warm and dry. HEAD: Normocephalic. EYES: No scleral icterus. No injection or drainage. NECK: Supple, trachea midline. No JVD or lymphadenopathy. CARDIOVASCULAR: Regular rate and rhythm without murmurs, gallops, or rubs. RESPIRATORY: Breath sounds equal bilaterally. Coarse BS GASTROINTESTINAL: Abdomen soft, non-tender, nondistended. MUSCULOSKELETAL: No cyanosis, or edema. Neuro: Awake and alert A/P Assessment and Plan 1)Resp Insuff 2)COPD Exac 3)Pneumonia 4)DM 5)GERD PLAN : Continue with oxygen keep sats >92% Bronchodilators( Duoneb) add Symbicort Continue Solumederol 40mg TID CXR yesterday -Clearing bibasilar airspace disease NIPPV PRN for resp distress PFT as outpatient Continue abx(Levaquin) s/p bronch 3/6- cultures - No growth GI/DVT prophylaxis- on Lovenox 40mg daily Scar Palma MD Nov 27, 2017 12:43
--- NOTE | 2017-11-27 15:53 | RADRPT ---
EXAM DATE/TIME: 11/27/2017 15:32 [facility] COMPARISON: CHEST PA & LAT, November 11, 2017, 14:41. INDICATIONS : Shortness of breath. MEDICAL HISTORY : CVA, Parkinsons disease, coronary artery disease SURGICAL HISTORY : Appendectomy. Carotid endarterectomy. ENCOUNTER: Subsequent ACUITY: 1 month PAIN SCORE: 0/10 LOCATION: Bilateral chest FINDINGS: PA and lateral views of the chest. Mild patchy opacity at the lung bases. Cardiac silhouette mildly p rominent and unchanged. No evidence of pleural effusion or pneumothorax. CONCLUSION: Mild bilateral lower lung zone opacity likely representing atelectasis. Mildly prominent cardiac silh ouette unchanged. Viktor Lo MD on November 27, 2017 at 15:51 Board Certified Radiologist. This report was verified electronically.
[2017-11-27] MEDS: BUDESONIDE-FORMOTEROL 160/4.5 MCG INHALER INH SCH ×2 (16:34→20:43)
[2017-11-27] MEDS: LEVOFLOXACIN 500 MG PREMIX INJ 100 ML IV SCH (17:17)
[2017-11-27] MEDS: ENOXAPARIN SODIUM 40 MG/0.4 ML SYRINGE SQ SCH (17:18)
[2017-11-27] MEDS: DONEPEZIL HCL 5 MG TAB PO SCH (20:42)
[2017-11-28] VITALS (10 sets, daily range): BP systolic 97–133; BP diastolic 55–84; PULSE 54–94; RESP 18–20; TEMP 97.4–98.1; O2SAT 93–98
[2017-11-28] MEDS: TEMAZEPAM 15 MG CAP PO PRN ×2 (00:29→22:19)
[2017-11-28] MEDS: ACETAMINOPHEN/CODEINE ELIX 120 MG/12 MG/5 ML CUP PO PRN ×4 (00:35→22:19)
[2017-11-28] MEDS: RESP: ALBUTEROL 2.5 MG/IPRATROPIUM 0.5 MG NEB (SCH) NEB ×5 (04:14→20:53)
[2017-11-28] MEDS: CARBIDOPA/LEVODOPA 25 MG/100 MG TAB PO SCH ×3 (05:52→22:20)
[2017-11-28] MEDS: ASPIRIN EC 81 MG TABEC PO SCH (08:52)
[2017-11-28] MEDS: INSULIN NovoLIN REGULAR SUPPLEMENTAL SCALE SQ SCH ×4 (08:52→22:19)
[2017-11-28] MEDS: glipiZIDE 5 MG TAB PO SCH (08:52)
[2017-11-28] MEDS: ESCITALOPRAM OXALATE 10 MG TAB PO SCH (08:52)
[2017-11-28] MEDS: methylPREDNISolone SOD SUCC 40 MG/1 ML VIAL IV PUSH SCH ×3 (08:52→18:21)
[2017-11-28] MEDS: PREGABALIN 100 MG CAP PO SCH ×3 (08:53→18:21)
[2017-11-28] MEDS: guaiFENesin E.R. 600 MG TAB PO SCH ×2 (08:53→22:19)
[2017-11-28] MEDS: DOCUSATE SODIUM 50 MG/SENNA 8.6 MG TAB PO SCH ×2 (08:53→22:20)
[2017-11-28] MEDS: TRIAMTERENE/HCTZ 37.5 MG/25 MG TAB PO SCH (08:53)
[2017-11-28] MEDS: LIPASE/PROTEASE/AMYLASE (24,000/76,000/120,000) CAP PO SCH ×3 (08:53→18:22)
[2017-11-28] MEDS: PANTOPRAZOLE SOD 40 MG DELAYED RELEASE TAB PO SCH (08:53)
[2017-11-28] MEDS: DULoxetine HCl DR 60 MG CAP PO SCH (08:53)
[2017-11-28] MEDS: SUCRALFATE 1 GM TAB PO SCH ×4 (08:53→22:19)
[2017-11-28] MEDS: TOPIRAMATE 25 MG TAB PO SCH ×2 (08:53→22:20)
[2017-11-28] MEDS: FLUCONAZOLE 200 MG TAB PO SCH (08:53)
[2017-11-28] MEDS: CELECOXIB 200 MG CAP PO SCH (08:54)
[2017-11-28] MEDS: LISINOPRIL 10 MG TAB PO SCH (08:55)
[2017-11-28] MEDS: LINZESS 145 MCG PO SCH (08:55)
[2017-11-28] MEDS: SODIUM CHLORIDE 0.9% FLUSH 10 ML FLUSH IV FLUSH SCH ×2 (09:00→22:18)
[2017-11-28] MEDS: BUDESONIDE-FORMOTEROL 160/4.5 MCG INHALER INH SCH ×2 (09:01→22:20)
--- NOTE | 2017-11-28 11:44 | HHI.PR ---
Subjective Remarks Nursing denies any deterioration since last night. Patient says he still feels "lousy." Chest x-ray from yesterday shows no acute infiltrates. Patient reports feeling congested in his chest, says his cough rattles more today than previously. Objective Vital Signs Date Time Temp Pulse Resp B/P (MAP) Pulse Ox O2 Delivery O2 Flow Rate FiO2 11/28/17 08:28 98 Nasal Cannula 2.00 11/28/17 08:00 97.4 62 20 133/71 (91) 93 11/28/17 08:00 75 11/28/17 07:00 Nasal Cannula 3.00 11/28/17 04:04 73 11/28/17 04:00 98.1 81 18 131/84 (100) 97 11/28/17 00:00 Nasal Cannula 2.00 Humidified 11/28/17 00:00 98.0 54 18 97/55 (69) 94 11/27/17 23:35 75 11/27/17 20:30 98.0 81 20 135/61 (85) 94 11/27/17 20:30 Nasal Cannula 2.00 Humidified 11/27/17 20:29 98 Nasal Cannula 2.00 11/27/17 19:48 82 11/27/17 16:00 97.6 75 20 151/73 (99) 95 11/27/17 16:00 76 11/27/17 12:00 97.8 74 20 122/75 (91) 95 11/27/17 12:00 68 I/O 11/27/17 11/27/17 11/27/17 11/28/17 11/28/17 11/28/17 07:00 15:00 23:00 07:00 15:00 23:00 Intake Total 5000 ml 480 ml 1100 ml Balance 5000 ml 480 ml 1100 ml Intake Oral 5000 ml 480 ml 1100 ml # Voids 10 6 4 3 # Bowel Movements 2 1 Result Diagram: 11/26/17 0656 11/26/17 0656 Objective Remarks Improved wheezing and rhonchi compared to yesterday, unlabored breathing, still walking up and down the hallway. A/P Assessment and Plan 77 years old male COPD with exacerbation -clinically stable, no other day of steroids per pulmonology Possible mucous plugging - adding mucomyst to nebs, will touch base w/ pulm to see if repeat bronchoscopy is beneficial - Ordering cbc, bmp, and fluswab PNA - continue Levaquin and fluconazole per ID. CXR actually clear from yesterday. - Pulmonology following. Continue breathing treatments, supplemental oxygen as needed. Taper steroids. 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 Díaz DM type 2 - home glipizide - HLIV. monitor BS. increasing to MDSS - HbA1C 7.1 Hypertension- continue meds- on JULISA/diuretics GERD- on PPI and Carafate constipation - Linzess Migraine headaches - continue on Imitrex 6 mg sq daily prn - continue psych Meds DVT prophylaxis: Lovenox Discharge Planning awaiting ID and pulm clearance; anticipate dc 11/29/17 continue to taper IV steroids Favian Dey MD Nov 28, 2017 11:44
--- NOTE | 2017-11-28 11:44 | HHI.PR ---
Subjective Remarks Patient remains on 2L oxygen reports. Afebrile. Objective Vital Signs Vital Signs Date Time Temp Pulse Resp B/P (MAP) Pulse Ox O2 Delivery O2 Flow Rate FiO2 11/28/17 08:28 98 Nasal Cannula 2.00 11/28/17 08:00 97.4 62 20 133/71 (91) 93 11/28/17 08:00 75 11/28/17 07:00 Nasal Cannula 3.00 11/28/17 04:04 73 11/28/17 04:00 98.1 81 18 131/84 (100) 97 11/28/17 00:00 Nasal Cannula 2.00 Humidified 11/28/17 00:00 98.0 54 18 97/55 (69) 94 11/27/17 23:35 75 11/27/17 20:30 98.0 81 20 135/61 (85) 94 11/27/17 20:30 Nasal Cannula 2.00 Humidified 11/27/17 20:29 98 Nasal Cannula 2.00 11/27/17 19:48 82 11/27/17 16:00 97.6 75 20 151/73 (99) 95 11/27/17 16:00 76 11/27/17 12:00 97.8 74 20 122/75 (91) 95 11/27/17 12:00 68 I/O 11/27/17 11/27/17 11/27/17 11/28/17 11/28/17 11/28/17 07:00 15:00 23:00 07:00 15:00 23:00 Intake Total 5000 ml 480 ml 1100 ml Balance 5000 ml 480 ml 1100 ml Intake Oral 5000 ml 480 ml 1100 ml # Voids 10 6 4 3 # Bowel Movements 2 1 Result Diagram: 11/26/17 0656 11/26/17 0656 Other Results Last Impressions Chest X-Ray 11/27/17 0000 Signed Impressions: Service Date/Time: Monday, November 27, 2017 15:32 - CONCLUSION: Mild bilateral lower lung zone opacity likely representing atelectasis. Mildly prominent cardiac silhouette unchanged. Viktor Lo MD CT Angiography 11/14/17 1223 Signed Impressions: Service Date/Time: Tuesday, November 14, 2017 14:21 - CONCLUSION: 1. No evidence of pulmonary embolism. 2. Patchy parenchymal infiltrates in both lung bases, left greater than right. 3. Compensated cardiomegaly. Maksim Scanlon MD Objective Remarks GENERAL: Patient is 77 yo lying in bed in mild resp distress SKIN: Warm and dry. HEAD: Normocephalic. EYES: No scleral icterus. No injection or drainage. NECK: Supple, trachea midline. No JVD or lymphadenopathy. CARDIOVASCULAR: Regular rate and rhythm without murmurs, gallops, or rubs. RESPIRATORY: Breath sounds equal bilaterally. Coarse BS GASTROINTESTINAL: Abdomen soft, non-tender, nondistended. MUSCULOSKELETAL: No cyanosis, or edema. Neuro: Awake and alert A/P Assessment and Plan 1)Resp Insuff 2)COPD Exac 3)Pneumonia 4)DM 5)GERD PLAN : Continue with oxygen keep sats >92% Bronchodilators( Duoneb) Symbicort Continue Solumederol 40mg TID CXR 11/27: Mild bilateral lower lung zone opacity likely representing atelectasis. CT chest from 11/14 showed no PE NIPPV PRN for resp distress Continue abx(Levaquin) s/p bronch 11/23- cultures - No growth GI/DVT prophylaxis- on Lovenox 40mg daily Scar Palma MD Nov 28, 2017 11:44
[2017-11-28 12:33] LABS: AUTOMATED NEUTROPHIL # 8.4 TH/MM3 (1.8-7.7); BASOPHIL % 0.1 % (0.0-2.0); HEMATOCRIT 41.8 % (39.0-51.0); HEMOGLOBIN 14.1 GM/DL (13.0-17.0); LYMPH % 2.7 % (9.0-44.0); LYMPHOCYTE # 0.3 TH/MM3 (1.0-4.8); MEAN CELL VOLUME 92.2 FL (80.0-100.0); MEAN CORPUSCULAR HEMOGLOBIN 31.2 PG (27.0-34.0); MEAN CORPUSCULAR HGB CONC 33.8 % (32.0-36.0); MEAN PLATELET VOLUME 8.7 FL (7.0-11.0); MONO % 8.3 % (0.0-8.0); MONOCYTE # 0.8 TH/MM3 (0-0.9); NEUT % 88.9 % (16.0-70.0); PLATELET COUNT 147 TH/MM3 (150-450); RED BLOOD COUNT 4.54 MIL/MM3 (4.50-5.90); RED CELL DISTRIBUTION WIDTH 15.6 % (11.6-17.2); WHITE BLOOD COUNT 9.5 TH/MM3 (4.0-11.0)
[2017-11-28 12:50] LABS: BICARBONATE 23.8 MEQ/L (21.0-32.0); CREATININE 1.6 MG/DL (0.60-1.30)
[2017-11-28] MEDS ORDERED: RESP: ALBUTEROL 2.5 MG/3 ML NEB (PRN) INH (17:15)
[2017-11-28] MEDS: LEVOFLOXACIN 500 MG PREMIX INJ 100 ML IV SCH (18:22)
[2017-11-28] MEDS: ENOXAPARIN SODIUM 40 MG/0.4 ML SYRINGE SQ SCH (18:23)
[2017-11-28] MEDS: RESP: ACETYLCYSTEINE 20% 4 ML NEB NEB SCH (20:53)
[2017-11-28] MEDS: DONEPEZIL HCL 5 MG TAB PO SCH (22:19)
[2017-11-29] VITALS (15 sets, daily range): BP systolic 113–152; BP diastolic 62–79; PULSE 52–89; RESP 18–20; TEMP 97.2–98.1; O2SAT 92–96
[2017-11-29] MEDS: RESP: ALBUTEROL 2.5 MG/IPRATROPIUM 0.5 MG NEB (SCH) NEB ×6 (00:36→23:40)
[2017-11-29] MEDS: CARBIDOPA/LEVODOPA 25 MG/100 MG TAB PO SCH ×3 (06:14→21:51)
[2017-11-29] MEDS: ACETAMINOPHEN/CODEINE ELIX 120 MG/12 MG/5 ML CUP PO PRN ×4 (06:14→23:48)
[2017-11-29] MEDS: INSULIN NovoLIN REGULAR SUPPLEMENTAL SCALE SQ SCH ×4 (08:00→21:00)
[2017-11-29] MEDS: RESP: ACETYLCYSTEINE 20% 4 ML NEB NEB SCH ×4 (08:01→20:10)
[2017-11-29] MEDS: BUDESONIDE-FORMOTEROL 160/4.5 MCG INHALER INH SCH ×2 (09:14→21:00)
[2017-11-29] MEDS: SODIUM CHLORIDE 0.9% FLUSH 10 ML FLUSH IV FLUSH SCH ×2 (09:15→21:00)
[2017-11-29] MEDS: methylPREDNISolone SOD SUCC 40 MG/1 ML VIAL IV PUSH SCH (09:16)
[2017-11-29] MEDS: PANTOPRAZOLE SOD 40 MG DELAYED RELEASE TAB PO SCH (09:16)
[2017-11-29] MEDS: DOCUSATE SODIUM 50 MG/SENNA 8.6 MG TAB PO SCH ×2 (09:17→21:51)
[2017-11-29] MEDS: SUCRALFATE 1 GM TAB PO SCH ×4 (09:17→21:51)
[2017-11-29] MEDS: guaiFENesin E.R. 600 MG TAB PO SCH ×2 (09:17→21:51)
[2017-11-29] MEDS: FLUCONAZOLE 200 MG TAB PO SCH (09:17)
[2017-11-29] MEDS: LISINOPRIL 10 MG TAB PO SCH (09:18)
[2017-11-29] MEDS: ASPIRIN EC 81 MG TABEC PO SCH (09:18)
[2017-11-29] MEDS: ESCITALOPRAM OXALATE 10 MG TAB PO SCH (09:19)
[2017-11-29] MEDS: LIPASE/PROTEASE/AMYLASE (24,000/76,000/120,000) CAP PO SCH ×3 (09:32→17:48)
[2017-11-29] MEDS: LINZESS 145 MCG PO SCH (09:32)
[2017-11-29] MEDS: TRIAMTERENE/HCTZ 37.5 MG/25 MG TAB PO SCH (09:33)
[2017-11-29] MEDS: PREGABALIN 100 MG CAP PO SCH ×3 (09:34→17:48)
[2017-11-29] MEDS: TOPIRAMATE 25 MG TAB PO SCH ×2 (09:35→21:51)
[2017-11-29] MEDS: CELECOXIB 200 MG CAP PO SCH (09:36)
[2017-11-29] MEDS: DULoxetine HCl DR 60 MG CAP PO SCH (09:37)
[2017-11-29] MEDS: methylPREDNISolone SOD SUCC 125 MG/2 ML VIAL IV PUSH SCH ×3 (12:44→23:48)
--- NOTE | 2017-11-29 13:11 | HHI.PR ---
Subjective Remarks Nursing denies any deterioration since last night. Thinks that he did get more clearing from his chest with the Mucomyst treatments that were added yesterday. However he says he still feels short of breath more than usual overall. Objective Vital Signs Date Time Temp Pulse Resp B/P (MAP) Pulse Ox O2 Delivery O2 Flow Rate FiO2 11/29/17 12:43 97.6 71 18 152/79 (103) 95 11/29/17 11:55 69 11/29/17 09:07 97.2 63 20 139/62 (87) 96 11/29/17 08:02 93 Nasal Cannula 2.00 11/29/17 08:00 Nasal Cannula 2.00 21 11/29/17 08:00 89 11/29/17 04:10 98.1 76 20 131/73 (92) 94 11/29/17 04:10 Nasal Cannula 2.00 11/29/17 04:07 71 11/29/17 00:26 97.2 52 20 113/70 (84) 92 11/29/17 00:26 Nasal Cannula 2.00 11/29/17 00:06 83 11/28/17 20:57 96 Nasal Cannula 2.00 11/28/17 20:00 97.8 94 18 126/72 (90) 93 11/28/17 20:00 Nasal Cannula 2.00 11/28/17 19:47 83 11/28/17 16:00 97.5 92 20 123/71 (88) 94 I/O 11/28/17 11/28/17 11/28/17 11/29/17 11/29/17 11/29/17 07:00 15:00 23:00 07:00 15:00 23:00 Intake Total 1100 ml 720 ml Balance 1100 ml 720 ml Intake Oral 1100 ml 720 ml # Voids 4 3 6 # Bowel Movements 1 2 Result Diagram: 11/28/17 1157 11/28/17 1157 Objective Remarks Still has copious rhonchi all throughout, on nasal cannula, no cyanosis A/P Assessment and Plan 77 years old male SOB/Possible mucous plugging - Mucomyst to nebs, d/w pulmonology, plan for possible repeat bronch today, increasing steroid dosing - Ordering cbc, bmp, and fluswab LUISA seen on BMP - IV bolus, repeat in AM PNA - continue Levaquin and fluconazole per ID. CXR actually clear from yesterday. - Pulmonology following. Continue breathing treatments, supplemental oxygen as needed. Taper steroids. 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 Díaz DM type 2 - home glipizide - HLIV. monitor BS. increasing to MDSS - HbA1C 7.1 Hypertension- continue meds- on JULISA/diuretics GERD- on PPI and Carafate constipation - Linzess Migraine headaches - continue on Imitrex 6 mg sq daily prn - continue psych Meds DVT prophylaxis: Lovenox Discharge Planning awaiting ID and pulm clearance; anticipate dc 12/01/17 Favian Dey MD Nov 29, 2017 13:11
[2017-11-29] MEDS ORDERED: SODIUM CHLOR 0.9% 1000 ML INJ 1,000 ML IV ONE (13:15)
[2017-11-29] MEDS ORDERED: MIDAZOLAM HCL 2 MG/2 ML VIAL ONE (15:11)
[2017-11-29] MEDS ORDERED: DO NOT ADM ANY ANTICOAGULANT DRUGS PRN (15:30)
--- NOTE | 2017-11-29 16:16 | HHI.PR ---
Subjective Remarks alert on o2 C/O increase SOB , COUGH AND CONGESTION PLAN CONTINUE O2 BRONCHODILATOR THERAPY BRONCHOSCOPY TODAY Objective Vital Signs Date Time Temp Pulse Resp B/P (MAP) Pulse Ox O2 Delivery O2 Flow Rate FiO2 11/29/17 15:35 68 16 94 Nasal Cannula 2 11/29/17 15:30 97.6 65 16 135/67 (89) 93 Nasal Cannula 2 11/29/17 15:15 72 15 146/69 (94) 92 Nasal Cannula 3 11/29/17 15:00 97.9 76 17 154/79 (104) 99 Simple Mask 10 11/29/17 12:43 97.6 71 18 152/79 (103) 95 11/29/17 11:55 69 11/29/17 09:07 97.2 63 20 139/62 (87) 96 11/29/17 08:02 93 Nasal Cannula 2.00 11/29/17 08:00 Nasal Cannula 2.00 21 11/29/17 08:00 89 11/29/17 04:10 98.1 76 20 131/73 (92) 94 11/29/17 04:10 Nasal Cannula 2.00 11/29/17 04:07 71 11/29/17 00:26 97.2 52 20 113/70 (84) 92 11/29/17 00:26 Nasal Cannula 2.00 11/29/17 00:06 83 11/28/17 20:57 96 Nasal Cannula 2.00 11/28/17 20:00 97.8 94 18 126/72 (90) 93 11/28/17 20:00 Nasal Cannula 2.00 11/28/17 19:47 83 I/O 11/28/17 11/28/17 11/28/17 11/29/17 11/29/17 11/29/17 07:00 15:00 23:00 07:00 15:00 23:00 Intake Total 1100 ml 720 ml Balance 1100 ml 720 ml Intake Oral 1100 ml 720 ml # Voids 4 3 6 # Bowel Movements 1 2 Result Diagram: 11/28/17 1157 11/28/17 1157 Objective Remarks GENERAL: SKIN: Warm and dry. HEAD: Atraumatic. Normocephalic. EYES: Pupils equal and round. No scleral icterus. No injection or drainage. ENT: No nasal bleeding or discharge. Mucous membranes pink and moist. NECK: Trachea midline. No JVD. CARDIOVASCULAR: Regular rate and rhythm. RESPIRATORY: No accessory muscle use. SCATTERED RHONCHI . Breath sounds equal bilaterally. GASTROINTESTINAL: Abdomen soft, non-tender, nondistended. Hepatic and splenic margins not palpable. MUSCULOSKELETAL: Extremities without clubbing, cyanosis, or edema. No obvious deformities. NEUROLOGICAL: Awake and alert. No obvious cranial nerve deficits. Motor grossly within normal limits. Five out of 5 muscle strength in the arms and legs. Normal speech. PSYCHIATRIC: Appropriate mood and affect; insight and judgment normal. Assessment and Plan Assessment and Plan RESPIRATORY FAILURE PNA PLAN O2 ANTIBX F/U CXRAY INCREASE ACTIVITY Ramos Beasley MD Nov 29, 2017 16:16
[2017-11-29] MEDS: LEVOFLOXACIN 500 MG PREMIX INJ 100 ML IV SCH (16:20)
--- NOTE | 2017-11-29 16:55 | MR ---
cc: Ramos Beasley MD PROCEDURE: Fiberoptic bronchoscopy flexible. REASON FOR BRONCHOSCOPY: Excess mucoid secretion and plugging. Fiberoptic bronchoscopy performed via LMA. Vocal cords intact. Trachea moderately hyperemic, highly collapsible especially on its lower end posteriorly. Veda is widened. Left main bronchus, left upper and lower lobe, right main bronchus, right upper, middle and lower lobes all inspected. No obstructive pathology seen. Thick mucous plugs all removed. Of interest is the collapsibility of the lower trachea which appears widening of the veda. Because of the patient's continued bronchospasm it is difficult to have a clear view of the veda, whether it is normal or not. Washings obtained from both side of the tracheobronchial tree for cytological exam. Procedure well tolerated. Patient transferred to Recovery in stable condition. Ramos Beasley MD WWW/SB , 04:19 PM , 04:54 PM
[2017-11-29] MEDS: ENOXAPARIN SODIUM 40 MG/0.4 ML SYRINGE SQ SCH (17:49)
[2017-11-29] MEDS: INSULIN DETEMIR 100 UNITS/ML VIAL SQ SCH (21:00)
[2017-11-29] MEDS: DONEPEZIL HCL 5 MG TAB PO SCH (21:51)
[2017-11-29] MEDS: TEMAZEPAM 15 MG CAP PO PRN (22:02)
[2017-11-30] VITALS (12 sets, daily range): BP systolic 105–152; BP diastolic 63–91; PULSE 56–90; RESP 17–20; TEMP 97.1–98.2; O2SAT 90–98
[2017-11-30] MEDS: RESP: ALBUTEROL 2.5 MG/IPRATROPIUM 0.5 MG NEB (SCH) NEB ×6 (04:20→23:34)
[2017-11-30] MEDS: CARBIDOPA/LEVODOPA 25 MG/100 MG TAB PO SCH ×3 (05:13→21:28)
[2017-11-30] MEDS: methylPREDNISolone SOD SUCC 125 MG/2 ML VIAL IV PUSH SCH (05:13)
[2017-11-30] MEDS: ACETAMINOPHEN/CODEINE ELIX 120 MG/12 MG/5 ML CUP PO PRN ×4 (05:14→22:48)
[2017-11-30] MEDS: RESP: ACETYLCYSTEINE 20% 4 ML NEB NEB SCH ×4 (08:23→20:03)
[2017-11-30] MEDS: BUDESONIDE-FORMOTEROL 160/4.5 MCG INHALER INH SCH ×2 (09:08→21:00)
[2017-11-30] MEDS: INSULIN NovoLIN REGULAR SUPPLEMENTAL SCALE SQ SCH ×4 (09:08→21:00)
[2017-11-30] MEDS: ESCITALOPRAM OXALATE 10 MG TAB PO SCH (09:09)
[2017-11-30] MEDS: SODIUM CHLORIDE 0.9% FLUSH 10 ML FLUSH IV FLUSH SCH ×2 (09:09→21:29)
[2017-11-30] MEDS: SUCRALFATE 1 GM TAB PO SCH ×4 (09:09→21:28)
[2017-11-30] MEDS: DOCUSATE SODIUM 50 MG/SENNA 8.6 MG TAB PO SCH ×2 (09:09→21:28)
[2017-11-30] MEDS: ASPIRIN EC 81 MG TABEC PO SCH (09:09)
[2017-11-30] MEDS: PANTOPRAZOLE SOD 40 MG DELAYED RELEASE TAB PO SCH (09:09)
[2017-11-30] MEDS: LISINOPRIL 10 MG TAB PO SCH (09:10)
[2017-11-30] MEDS: guaiFENesin E.R. 600 MG TAB PO SCH ×2 (09:10→21:28)
[2017-11-30] MEDS: FLUCONAZOLE 200 MG TAB PO SCH (09:10)
[2017-11-30] MEDS: TOPIRAMATE 25 MG TAB PO SCH ×2 (09:17→21:28)
[2017-11-30] MEDS: INSULIN DETEMIR 100 UNITS/ML VIAL SQ SCH ×2 (09:17→21:00)
[2017-11-30] MEDS: PREGABALIN 100 MG CAP PO SCH ×3 (09:18→18:47)
[2017-11-30] MEDS: LINZESS 145 MCG PO SCH (09:18)
[2017-11-30] MEDS: DULoxetine HCl DR 60 MG CAP PO SCH (09:18)
[2017-11-30] MEDS: TRIAMTERENE/HCTZ 37.5 MG/25 MG TAB PO SCH (09:18)
[2017-11-30] MEDS: CELECOXIB 200 MG CAP PO SCH (09:18)
[2017-11-30] MEDS: LIPASE/PROTEASE/AMYLASE (24,000/76,000/120,000) CAP PO SCH ×3 (09:18→18:47)
--- NOTE | 2017-11-30 11:35 | HHI.IDPN ---
Note Infectious Disease Note Patient became exhausted after washing up in the bathroom. Notes SOB. Afebrile. Went for bronchoscopy yesterday. Culture pending. No chest pain. He notes constipation. 77-year-old white male who presented to the emergency department with respiratory symptoms. The patient does have cough and sputum production and shortness of breath for about a month. He was treated with 3 courses of antibiotics including Levaquin, doxycycline, and Z-DASHA. He did not improve and presented to emergency department. The patient has been on prednisone for vasculitis. He takes the prednisone daily. The patient and his report that they traveled from [place] about a month ago and when they got on the airplane to return to home from [place], that virtually everyone on the airplane was coughing. The patient had no problems with fever or chills, however. The patient states that he has had difficulty lying flat since he started having the problem and he has been coughing all day since the coughing began. PAST MEDICAL HISTORY: Depression, hyperlipidemia, allergic rhinitis, hypertension, gastroesophageal reflux disease, migraines, vasculitis, cerebrovascular accident in 2009 with minimal left lower extremity weakness, chronic low back pain, spinal stimulator which was replaced last year by fusion surgery, carotid artery surgery, left lower leg surgery. ALLERGIES: NO KNOWN DRUG ALLERGIES. MEDICATIONS: Current Medications Medications (Trade) Dose Ordered Sig/Nilsa Route PRN Reason Start Time Stop Time Status Last Admin Dose Admin Aspirin (Ecotrin Ec) 81 mg DAILY PO 11/15/17 09:00 11/30/17 09:09 Carbidopa/Levodopa (Sinemet 25-100 Mg) 1 tab Q8HR PO 11/14/17 22:00 11/30/17 05:13 Celecoxib (CeleBREX) 200 mg DAILY PO 11/15/17 09:00 11/30/17 09:18 Donepezil HCl (Aricept) 10 mg HS PO 11/14/17 21:00 11/29/17 21:51 Duloxetine HCl (Cymbalta Dr) 60 mg DAILY PO 11/15/17 09:00 11/30/17 09:18 Escitalopram Oxalate (Lexapro) 10 mg DAILY PO 11/15/17 09:00 11/30/17 09:09 Acetaminophen/ Hydrocodone Bitart (Rifle 5-325 Mg) 1 tab Q6H PRN PO PAIN 1-10 11/14/17 16:00 Lisinopril (Prinivil) 10 mg DAILY PO 11/15/17 09:00 11/30/17 09:10 Sucralfate (Carafate) 1 gm QID PO 11/14/17 18:00 11/30/17 09:09 Temazepam (Restoril) 30 mg HS PRN PO INSOMNIA 11/14/17 16:00 11/29/17 22:02 Topiramate (Topamax) 25 mg BID PO 11/14/17 21:00 11/30/17 09:17 Triamterene/HCTZ (Maxzide 37.5-25 Mg) 0.5 tab DAILY PO 11/15/17 09:00 11/30/17 09:18 Pantoprazole Sodium (Protonix) 40 mg DAILY PO 11/15/17 09:00 11/30/17 09:09 Patient Own Medication PT OWN MED: MOVAN... DAILY PO 11/15/17 09:00 Future Hold Amylase/Lipase/ Protease (Creon 24-76-120) 1 cap TIDPC PO 11/14/17 18:30 11/30/17 09:18 Sodium Chloride (NS Flush) 2 ml UNSCH PRN IV FLUSH FLUSH AFTER USING IV ACCESS 11/14/17 16:15 Sodium Chloride (NS Flush) 2 ml BID IV FLUSH 11/14/17 21:00 11/30/17 09:09 Acetaminophen (Tylenol) 650 mg Q4H PRN PO TEMP > 100.4 11/14/17 16:15 Ondansetron HCl (Zofran Inj) 4 mg Q6H PRN IVP NAUSEA OR VOMITING 11/14/17 16:15 Enoxaparin Sodium (Lovenox Inj) 40 mg Q24H SQ 11/14/17 18:00 11/28/17 18:23 Naloxone HCl (Narcan Inj) 0.4 mg UNSCH PRN IV PUSH SEE LABEL COMMENTS 11/14/17 16:15 Senna/Docusate Sodium (Mili-Colace) 1 tab BID PO 11/14/17 21:00 11/30/17 09:09 Magnesium Hydroxide (Milk Of Magnesia Liq) 30 ml Q12H PRN PO Mild constipation 11/14/17 16:15 Sennosides (Senokot) 17.2 mg Q12H PRN PO Moderate constipation 11/14/17 16:15 Bisacodyl (Dulcolax Supp) 10 mg DAILY PRN RECTAL SEVERE CONSITIPATION 11/14/17 16:15 Lactulose (Lactulose Liq) 30 ml DAILY PRN PO SEVERE CONSITIPATION 11/14/17 16:15 Patient Own Medication PT OWN MED: LINZ... DAILY PO 11/15/17 09:00 11/30/17 09:18 Pregabalin (Lyrica) 200 mg TID PO 11/15/17 18:00 11/30/17 09:18 Sumatriptan Succinate (Imitrex Inj) 6 mg DAILY PRN SQ MIGRAIN HEADACHE 11/15/17 16:30 11/26/17 21:40 Guaifenesin/ Dextromethorphan (Robitussin Dm 200-20 Mg/10 ml Liq) 10 ml Q6H PRN PO cough 11/16/17 12:00 11/26/17 16:50 Sumatriptan Succinate (Imitrex Inj) 6 mg UNSCH PRN SQ MIGRAINE HEADACHE intractable 11/16/17 18:00 11/29/17 20:16 Acetaminophen/ Codeine Phosphate (Tylenol - Codeine 120-12 Liq) 5 ml Q4H PRN PO persistent cough 11/16/17 19:00 11/30/17 05:14 Guaifenesin (Mucinex Er) 600 mg BID PO 11/16/17 21:00 11/30/17 09:10 Fluconazole (Diflucan) 200 mg DAILY PO 11/23/17 09:00 11/30/17 09:10 Levofloxacin/ Dextrose 100 ml @ 100 mls/hr Q24H IV 11/22/17 17:00 11/29/17 16:20 Dextrose (D50w (Vial) Inj) 50 ml UNSCH PRN IV PUSH HYPOGLYCEMIA-SEE COMMENTS 11/26/17 12:45 Glucagon (Glucagon Inj) 1 mg UNSCH PRN OTHER HYPOGLYCEMIA-SEE COMMENTS 11/26/17 12:45 Budesonide/ Formoterol Fumarate (Symbicort 160-4.5 Mcg Inh) 2 puff Q12HR INH 11/27/17 12:45 11/30/17 09:08 Insulin Human Regular (NovoLIN R SUPPLEMENTAL SCALE) 1 ACHS SLIDING SCALE SQ 11/28/17 12:00 11/30/17 09:08 Acetylcysteine (Mucomyst 20% Neb) 4 ml Q4HR WHILE AWAKE NEB NEB 11/28/17 20:00 11/30/17 08:23 Albuterol Sulfate (Albuterol Neb) 2.5 mg Q2HR NEB PRN INH SHORTNESS OF BREATH 11/28/17 17:15 11/29/17 20:10 Insulin Detemir (Levemir Inj) 2 units Q12HR SQ 11/29/17 21:00 11/30/17 09:17 Miscellaneous Information ALL NURSING DEPARTME... UNSCH PRN .XX SEE LABEL COMMENTS 11/29/17 15:30 11/30/17 15:29 Albuterol/ Ipratropium (Duoneb Neb) 1 ampule Q4HR NEB NEB 11/30/17 00:00 11/30/17 08:23 Methylprednisolone Sodium Succinate (SoluMEDROL INJ) 40 mg Q8HR IV PUSH 11/30/17 14:00 UNV SOCIAL HISTORY: The patient is . He smokes occasional cigar. Occasional social alcohol. No substance abuse. OBJECTIVE: Vital Signs Date Time Temp Pulse Resp B/P (MAP) Pulse Ox O2 Delivery O2 Flow Rate FiO2 11/30/17 10:51 18 11/30/17 10:45 90 Nasal Cannula 2.00 11/30/17 08:25 90 21 11/30/17 08:00 97.9 74 19 152/91 (111) 98 11/30/17 04:03 69 11/30/17 04:00 97.2 60 19 128/70 (89) 97 11/30/17 00:14 81 11/30/17 00:00 97.5 56 17 105/63 (77) 92 11/29/17 23:40 95 Nasal Cannula 2.00 11/29/17 20:26 Nasal Cannula 2.00 11/29/17 20:10 96 Nasal Cannula 2.00 11/29/17 20:00 97.7 77 20 146/74 (98) 96 11/29/17 19:58 78 11/29/17 19:00 Nasal Cannula 2.00 21 11/29/17 16:50 97.3 81 18 143/67 (92) 93 11/29/17 16:00 67 11/29/17 15:35 68 16 94 Nasal Cannula 2 11/29/17 15:30 97.6 65 16 135/67 (89) 93 Nasal Cannula 2 11/29/17 15:15 72 15 146/69 (94) 92 Nasal Cannula 3 11/29/17 15:00 97.9 76 17 154/79 (104) 99 Simple Mask 10 11/29/17 12:43 97.6 71 18 152/79 (103) 95 11/29/17 11:55 69 Laboratory Tests Test 11/28/17 11:57 White Blood Count 9.5 TH/MM3 Red Blood Count 4.54 MIL/MM3 Hemoglobin 14.1 GM/DL Hematocrit 41.8 % Mean Corpuscular Volume 92.2 FL Mean Corpuscular Hemoglobin 31.2 PG Mean Corpuscular Hemoglobin Concent 33.8 % Red Cell Distribution Width 15.6 % Platelet Count 147 TH/MM3 Mean Platelet Volume 8.7 FL Neutrophils (%) (Auto) 88.9 % Lymphocytes (%) (Auto) 2.7 % Monocytes (%) (Auto) 8.3 % Eosinophils (%) (Auto) 0.0 % Basophils (%) (Auto) 0.1 % Neutrophils # (Auto) 8.4 TH/MM3 Lymphocytes # (Auto) 0.3 TH/MM3 Monocytes # (Auto) 0.8 TH/MM3 Eosinophils # (Auto) 0.0 TH/MM3 Basophils # (Auto) 0.0 TH/MM3 CBC Comment DIFF FINAL Differential Comment Laboratory Tests Test 11/28/17 11:57 Blood Urea Nitrogen 30 MG/DL Creatinine 1.60 MG/DL Random Glucose 309 MG/DL Calcium Level 8.0 MG/DL Sodium Level 134 MEQ/L Potassium Level 4.5 MEQ/L Chloride Level 100 MEQ/L Carbon Dioxide Level 23.8 MEQ/L Anion Gap 10 MEQ/L Estimat Glomerular Filtration Rate 42 ML/MIN IMAGING: Chest X-Ray 11/26/17 06 Signed Impressions: Service Date/Time: Sunday, November 26, 2017 06:09 - CONCLUSION: Clearing bibasilar airspace disease as described above. Otherwise stable chest. Emerson Hyde MD Chest X-Ray 11/19/17 0600 Signed Impressions: Service Date/Time: Sunday, November 19, 2017 06:48 - CONCLUSION: Acute bibasilar airspace disease with subsegmental consolidation on the left. Emerson Hyde MD CT Angiography 11/14/17 1223 Signed Impressions: Service Date/Time: Tuesday, November 14, 2017 14:21 - CONCLUSION: 1. No evidence of pulmonary embolism. 2. Patchy parenchymal infiltrates in both lung bases, left greater than right. 3. Compensated cardiomegaly. Maksim Scanlon MD CT Angiography 11/14/17 1223 Signed Impressions: Service Date/Time: Tuesday, November 14, 2017 14:21 - CONCLUSION: 1. No evidence of pulmonary embolism. 2. Patchy parenchymal infiltrates in both lung bases, left greater than right. 3. Compensated cardiomegaly. Maksim Scanlon MD PHYSICAL EXAMINATION: GENERAL: Awake and alert. No acute distress. HEENT: Extraocular movements grossly intact, pupils reactive to light. No icterus. Moist mucosa. No lesions. NECK: Supple without adenopathy. LUNGS: Bilateral coarse breath sounds. HEART: Irregular rate and rhythm. No murmurs, rubs, or gallops. ABDOMEN: Bowel sounds present, soft, no tenderness. EXTREMITIES: No clubbing, cyanosis, or edema. SKIN: No diffuse rash. NEUROLOGIC: No gross focal findings. PSYCHIATRIC: Calm and cooperative. IMPRESSION: 1. Pneumonia. ? etiology. Patient with respiratory symptoms with cough and dyspnea on exertion and CT scan shows patchy focal infiltrates in both lung bases. Bronchoscopy culture pending. Yeast isolated on culture. Identity pending. 2. Failed outpatient treatment with oral antibiotic; doxycycline, Levaquin, and azithromycin. 3. Acute kidney disease, mild. RECOMMENDATIONS: 1. Continue Levaquin. 2. Change fluconazole to voriconazole. 3. Monitor identity of the yeast on culture. 4. Follow clinical status. Mack Hodgson MD Nov 30, 2017 11:34
[2017-11-30] MEDS: methylPREDNISolone SOD SUCC 40 MG/1 ML VIAL IV PUSH SCH ×2 (12:41→21:28)
[2017-11-30 13:07] LABS: BICARBONATE 20.6 MEQ/L (21.0-32.0); CALCIUM 8.1 MG/DL (8.5-10.1); CREATININE 1.5 MG/DL (0.60-1.30)
[2017-11-30] MEDS: SODIUM CHLOR 0.9% IV SCH (15:37)
[2017-11-30] MEDS: VORICONAZOLE IV SCH (15:37)
--- NOTE | 2017-11-30 16:30 | HHI.PR ---
Subjective Remarks Nursing denies any deterioration since last night. He is still complaining of shortness of breath. Thinks he had a little improvement from the bronchoscopy yesterday. Objective Vital Signs Date Time Temp Pulse Resp B/P (MAP) Pulse Ox O2 Delivery O2 Flow Rate FiO2 11/30/17 16:00 97.1 76 20 124/63 (83) 93 11/30/17 15:36 18 11/30/17 15:30 94 21 11/30/17 12:00 97.7 59 18 129/66 (87) 93 11/30/17 10:45 90 Nasal Cannula 2.00 11/30/17 08:25 90 21 11/30/17 08:00 97.9 74 19 152/91 (111) 98 11/30/17 04:03 69 11/30/17 04:00 97.2 60 19 128/70 (89) 97 11/30/17 00:14 81 11/30/17 00:00 97.5 56 17 105/63 (77) 92 11/29/17 23:40 95 Nasal Cannula 2.00 11/29/17 20:26 Nasal Cannula 2.00 11/29/17 20:10 96 Nasal Cannula 2.00 11/29/17 20:00 97.7 77 20 146/74 (98) 96 11/29/17 19:58 78 11/29/17 19:00 Nasal Cannula 2.00 21 11/29/17 16:50 97.3 81 18 143/67 (92) 93 I/O 11/29/17 11/29/17 11/29/17 11/30/17 11/30/17 11/30/17 07:00 15:00 23:00 07:00 15:00 23:00 Intake Total 1010 ml Balance 1010 ml Intake Oral 1010 ml # Voids 2 1 # Bowel Movements 1 0 Result Diagram: 11/28/17 1157 11/30/17 1205 Objective Remarks Very minimal rhonchi compared to yesterday, which is a significantly improved since yesterday. No conversive dyspnea, walking up and down the hallway. Pulse ox in the hallway performed by the nurse is reading 98% on room air. A/P Assessment and Plan 77 years old male SOB 2/2 mucous plugging -Improved post repeat bronchoscopy, I feel that the patient's shortness of breath is more subjective now as his sats are good and objectively his exam is improved. We will taper the steroids today, will transition to oral steroids tomorrow continue Mucomyst duo nebs.. LUISA -Slight improvement, will continue with another bolus and followed by IV fluids and recheck in a.m. PNA - continue Levaquin and fluconazole per ID. - Pulmonology following. Continue breathing treatments, supplemental oxygen as needed. Taper steroids. 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 Díaz DM type 2 -Increasing Levemir to 7 units twice daily as sugars alberto to 400s today - HLIV. monitor BS. increasing to MDSS - HbA1C 7.1 Hypertension- continue meds- on JULISA/diuretics GERD- on PPI and Carafate constipation - Linzess Migraine headaches - continue on Imitrex 6 mg sq daily prn - continue psych Meds DVT prophylaxis: Lovenox Discharge Planning awaiting ID and pulm clearance; anticipate dc 12/01/17 Favian Dey MD Nov 30, 2017 16:30
--- NOTE | 2017-11-30 16:54 | HHI.PR ---
Subjective Remarks alert on o2 LESS SOB POST BRONCHOSCOPY Objective Vital Signs Date Time Temp Pulse Resp B/P (MAP) Pulse Ox O2 Delivery O2 Flow Rate FiO2 11/30/17 16:00 97.1 76 20 124/63 (83) 93 11/30/17 15:36 18 11/30/17 15:30 94 21 11/30/17 12:00 97.7 59 18 129/66 (87) 93 11/30/17 10:45 90 Nasal Cannula 2.00 11/30/17 08:25 90 21 11/30/17 08:00 97.9 74 19 152/91 (111) 98 11/30/17 04:03 69 11/30/17 04:00 97.2 60 19 128/70 (89) 97 11/30/17 00:14 81 11/30/17 00:00 97.5 56 17 105/63 (77) 92 11/29/17 23:40 95 Nasal Cannula 2.00 11/29/17 20:26 Nasal Cannula 2.00 11/29/17 20:10 96 Nasal Cannula 2.00 11/29/17 20:00 97.7 77 20 146/74 (98) 96 11/29/17 19:58 78 11/29/17 19:00 Nasal Cannula 2.00 21 I/O 11/29/17 11/29/17 11/29/17 11/30/17 11/30/17 11/30/17 07:00 15:00 23:00 07:00 15:00 23:00 Intake Total 1010 ml Balance 1010 ml Intake Oral 1010 ml # Voids 2 1 # Bowel Movements 1 0 Result Diagram: 11/28/17 1157 11/30/17 1205 Objective Remarks GENERAL: SKIN: Warm and dry. HEAD: Atraumatic. Normocephalic. EYES: Pupils equal and round. No scleral icterus. No injection or drainage. ENT: No nasal bleeding or discharge. Mucous membranes pink and moist. NECK: Trachea midline. No JVD. CARDIOVASCULAR: Regular rate and rhythm. RESPIRATORY: No accessory muscle use. SCATTERED RHONCHI . Breath sounds equal bilaterally. GASTROINTESTINAL: Abdomen soft, non-tender, nondistended. Hepatic and splenic margins not palpable. MUSCULOSKELETAL: Extremities without clubbing, cyanosis, or edema. No obvious deformities. NEUROLOGICAL: Awake and alert. No obvious cranial nerve deficits. Motor grossly within normal limits. Five out of 5 muscle strength in the arms and legs. Normal speech. PSYCHIATRIC: Appropriate mood and affect; insight and judgment normal. Assessment and Plan Assessment and Plan RESPIRATORY FAILURE PNA PLAN O2 ANTIBX F/U CXRAY INCREASE ACTIVITY Ramos Beasley MD Nov 30, 2017 16:54
[2017-11-30] MEDS: LEVOFLOXACIN 500 MG PREMIX INJ 100 ML IV SCH (18:32)
[2017-11-30] MEDS: ENOXAPARIN SODIUM 40 MG/0.4 ML SYRINGE SQ SCH (18:33)
[2017-11-30] MEDS: DONEPEZIL HCL 5 MG TAB PO SCH (21:28)
[2017-11-30] MEDS: TEMAZEPAM 15 MG CAP PO PRN (21:40)
[2017-12-01] VITALS (12 sets, daily range): BP systolic 126–140; BP diastolic 54–74; PULSE 69–93; RESP 18–22; TEMP 97.3–98; O2SAT 92–96
[2017-12-01] MEDS: VORICONAZOLE IV SCH (02:55)
[2017-12-01] MEDS: ACETAMINOPHEN/CODEINE ELIX 120 MG/12 MG/5 ML CUP PO PRN ×3 (02:55→16:59)
[2017-12-01] MEDS: SODIUM CHLOR 0.9% IV SCH (02:55)
[2017-12-01] MEDS: RESP: ALBUTEROL 2.5 MG/IPRATROPIUM 0.5 MG NEB (SCH) NEB ×6 (03:23→23:56)
[2017-12-01] MEDS: methylPREDNISolone SOD SUCC 40 MG/1 ML VIAL IV PUSH SCH ×2 (06:31→13:13)
[2017-12-01] MEDS: CARBIDOPA/LEVODOPA 25 MG/100 MG TAB PO SCH ×3 (06:36→20:50)
[2017-12-01] MEDS: LINZESS 145 MCG PO SCH (06:39)
[2017-12-01] MEDS: RESP: ACETYLCYSTEINE 20% 4 ML NEB NEB SCH ×4 (08:18→21:04)
[2017-12-01] MEDS ORDERED: VORICONAZOLE 200 MG TAB PO SCH (09:00)
[2017-12-01] MEDS: INSULIN NovoLIN REGULAR SUPPLEMENTAL SCALE SQ SCH ×4 (09:04→20:50)
[2017-12-01] MEDS: BUDESONIDE-FORMOTEROL 160/4.5 MCG INHALER INH SCH ×2 (09:04→20:51)
[2017-12-01] MEDS: SODIUM CHLORIDE 0.9% FLUSH 10 ML FLUSH IV FLUSH SCH ×2 (09:05→20:51)
[2017-12-01] MEDS: CELECOXIB 200 MG CAP PO SCH (09:06)
[2017-12-01] MEDS: SUCRALFATE 1 GM TAB PO SCH ×4 (09:06→20:50)
[2017-12-01] MEDS: DULoxetine HCl DR 60 MG CAP PO SCH (09:06)
[2017-12-01] MEDS: ASPIRIN EC 81 MG TABEC PO SCH (09:07)
[2017-12-01] MEDS: ESCITALOPRAM OXALATE 10 MG TAB PO SCH (09:07)
[2017-12-01] MEDS: PREGABALIN 100 MG CAP PO SCH ×3 (09:07→16:59)
[2017-12-01] MEDS: LISINOPRIL 10 MG TAB PO SCH (09:08)
[2017-12-01] MEDS: TOPIRAMATE 25 MG TAB PO SCH ×2 (09:08→20:50)
[2017-12-01] MEDS: guaiFENesin E.R. 600 MG TAB PO SCH ×2 (09:08→20:50)
[2017-12-01] MEDS: DOCUSATE SODIUM 50 MG/SENNA 8.6 MG TAB PO SCH ×2 (09:08→20:50)
[2017-12-01] MEDS: TRIAMTERENE/HCTZ 37.5 MG/25 MG TAB PO SCH (09:08)
[2017-12-01] MEDS: LIPASE/PROTEASE/AMYLASE (24,000/76,000/120,000) CAP PO SCH ×3 (09:08→16:59)
[2017-12-01] MEDS: PANTOPRAZOLE SOD 40 MG DELAYED RELEASE TAB PO SCH (09:08)
[2017-12-01] MEDS: INSULIN DETEMIR 100 UNITS/ML VIAL SQ SCH ×2 (09:09→20:51)
[2017-12-01 09:28] LABS: BICARBONATE 24.9 MEQ/L (21.0-32.0); CREATININE 1.5 MG/DL (0.60-1.30)
--- NOTE | 2017-12-01 13:51 | HHI.PR ---
Subjective Remarks Patient reports he got quite short of breath last night, reports having very poor sleep. Objective Vital Signs Date Time Temp Pulse Resp B/P (MAP) Pulse Ox O2 Delivery O2 Flow Rate FiO2 12/01/17 10:51 20 12/01/17 10:44 94 Nasal Cannula 2.00 12/01/17 08:22 94 Nasal Cannula 2.00 12/01/17 08:00 75 12/01/17 04:33 97.3 84 19 140/71 (94) 94 12/01/17 03:41 93 12/01/17 00:47 98.0 81 18 130/60 (83) 96 12/01/17 00:02 83 12/01/17 00:00 Nasal Cannula 2.00 11/30/17 21:30 Nasal Cannula 2.00 11/30/17 20:04 94 Nasal Cannula 2.00 11/30/17 20:03 90 11/30/17 20:00 98.2 90 20 124/68 (86) 93 11/30/17 16:00 97.1 76 20 124/63 (83) 93 11/30/17 16:00 77 11/30/17 15:30 94 21 I/O 11/30/17 11/30/17 11/30/17 12/01/17 12/01/17 12/01/17 07:00 15:00 23:00 07:00 15:00 23:00 Intake Total 1440 ml 610 ml 100 ml Balance 1440 ml 610 ml 100 ml Intake Oral 1440 ml 360 ml IV Total 250 ml 100 ml # Voids 1 3 10 # Bowel Movements 0 3 Result Diagram: 11/28/17 1157 12/01/17 3870 Objective Remarks I can audibly hear mucous rattling/congestion as the patient speaks Unlabored breathing, no cyanosis, very mild rhonchi all throughout, patient appears tired A/P Assessment and Plan 77 years old male SOB 2/2 mucous plugging and possible pneumonia - Improved post repeat bronchoscopy 2 days ago, tapering steroids, on duo nebs with Mucomyst, pulmonology following - continue Levaquin and azole per ID. - Pulmonology following. Continue breathing treatments, supplemental oxygen as needed. Taper steroids. 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 LUISA -Minimal improvement, will order additional boluses History of Vasculitis with neuropathy - Lyrica - on prednisone chronic as OP ( 7.5 mg ) - ff as OP by Dr. Díaz DM type 2 -Levemir 7 units bid - HLIV. monitor BS. MDSS; improved control from yesterday with increased Levemir , continue to monitor Accu-Cheks - HbA1C 7.1 Hypertension- continue meds- on JULISA/diuretics GERD- on PPI and Carafate constipation - Linzess Migraine headaches - continue on Imitrex 6 mg sq daily prn - continue psych Meds DVT prophylaxis: Lovenox Discharge Planning awaiting ID and pulm clearance; anticipate dc 12/01/17 Favian Dey MD Dec 01, 2017 13:51
[2017-12-01] MEDS ORDERED: SODIUM CHLOR 0.9% 250 ML INJ 250 ML IV ONE (14:00)
[2017-12-01] MEDS ORDERED: SODIUM CHLORID 0.9% 500 ML INJ 500 ML IV ONE (14:00)
[2017-12-01] MEDS ORDERED: SODIUM CHLOR 0.9% 1000 ML INJ 1,000 ML IV ONE (14:00)
--- NOTE | 2017-12-01 16:31 | HHI.PR ---
Subjective Remarks alert on o2 UP IN CHAIR Objective Vital Signs Date Time Temp Pulse Resp B/P (MAP) Pulse Ox O2 Delivery O2 Flow Rate FiO2 12/01/17 16:07 20 12/01/17 12:00 97.5 69 20 130/62 (84) 93 12/01/17 10:44 94 Nasal Cannula 2.00 12/01/17 08:22 94 Nasal Cannula 2.00 12/01/17 08:00 75 12/01/17 04:33 97.3 84 19 140/71 (94) 94 12/01/17 03:41 93 12/01/17 00:47 98.0 81 18 130/60 (83) 96 12/01/17 00:02 83 12/01/17 00:00 Nasal Cannula 2.00 11/30/17 21:30 Nasal Cannula 2.00 11/30/17 20:04 94 Nasal Cannula 2.00 11/30/17 20:03 90 11/30/17 20:00 98.2 90 20 124/68 (86) 93 I/O 11/30/17 11/30/17 11/30/17 12/01/17 12/01/17 12/01/17 07:00 15:00 23:00 07:00 15:00 23:00 Intake Total 1440 ml 610 ml 100 ml Balance 1440 ml 610 ml 100 ml Intake Oral 1440 ml 360 ml IV Total 250 ml 100 ml # Voids 1 3 10 # Bowel Movements 0 3 Result Diagram: 11/28/17 1157 12/01/17 0750 Objective Remarks GENERAL: SKIN: Warm and dry. HEAD: Atraumatic. Normocephalic. EYES: Pupils equal and round. No scleral icterus. No injection or drainage. ENT: No nasal bleeding or discharge. Mucous membranes pink and moist. NECK: Trachea midline. No JVD. CARDIOVASCULAR: Regular rate and rhythm. RESPIRATORY: No accessory muscle use. SCATTERED RHONCHI . Breath sounds equal bilaterally. GASTROINTESTINAL: Abdomen soft, non-tender, nondistended. Hepatic and splenic margins not palpable. MUSCULOSKELETAL: Extremities without clubbing, cyanosis, or edema. No obvious deformities. NEUROLOGICAL: Awake and alert. No obvious cranial nerve deficits. Motor grossly within normal limits. Five out of 5 muscle strength in the arms and legs. Normal speech. PSYCHIATRIC: Appropriate mood and affect; insight and judgment normal. Assessment and Plan Assessment and Plan RESPIRATORY FAILURE PNA, RESOLVING ELEMENT OF COPD, WITH SIGNIFICANT AIRWAY HYPERCOAGULABILITY PLAN O2 ANTIBX F/U CXRAY INCREASE ACTIVITY HOME AM Ramos,Ramos Etienne MD Dec 01, 2017 16:31
[2017-12-01] MEDS: ENOXAPARIN SODIUM 40 MG/0.4 ML SYRINGE SQ SCH (16:50)
[2017-12-01] MEDS: LEVOFLOXACIN 500 MG PREMIX INJ 100 ML IV SCH (16:52)
--- NOTE | 2017-12-01 16:52 | HHI.IDPN ---
Note Infectious Disease Note Notes SOB with little activity. Says he had a difficulty breathing early today. Up in bed side chair. Afebrile. No chest pain. Bronch culture from 11/23 has danny albicans. 77-year-old white male who presented to the emergency department with respiratory symptoms. The patient does have cough and sputum production and shortness of breath for about a month. He was treated with 3 courses of antibiotics including Levaquin, doxycycline, and Z-DASHA. He did not improve and presented to emergency department. The patient has been on prednisone for vasculitis. He takes the prednisone daily. The patient and his report that they traveled from [place] about a month ago and when they got on the airplane to return to home from [place], that virtually everyone on the airplane was coughing. The patient had no problems with fever or chills, however. The patient states that he has had difficulty lying flat since he started having the problem and he has been coughing all day since the coughing began. PAST MEDICAL HISTORY: Depression, hyperlipidemia, allergic rhinitis, hypertension, gastroesophageal reflux disease, migraines, vasculitis, cerebrovascular accident in 2009 with minimal left lower extremity weakness, chronic low back pain, spinal stimulator which was replaced last year by fusion surgery, carotid artery surgery, left lower leg surgery. ALLERGIES: NO KNOWN DRUG ALLERGIES. MEDICATIONS: Current Medications Medications (Trade) Dose Ordered Sig/Nilsa Route PRN Reason Start Time Stop Time Status Last Admin Dose Admin Aspirin (Ecotrin Ec) 81 mg DAILY PO 11/15/17 09:00 12/01/17 09:07 Carbidopa/Levodopa (Sinemet 25-100 Mg) 1 tab Q8HR PO 11/14/17 22:00 12/01/17 13:12 Celecoxib (CeleBREX) 200 mg DAILY PO 11/15/17 09:00 12/01/17 09:06 Donepezil HCl (Aricept) 10 mg HS PO 11/14/17 21:00 11/30/17 21:28 Duloxetine HCl (Cymbalta Dr) 60 mg DAILY PO 11/15/17 09:00 12/01/17 09:06 Escitalopram Oxalate (Lexapro) 10 mg DAILY PO 11/15/17 09:00 12/01/17 09:07 Acetaminophen/ Hydrocodone Bitart ([place] 5-325 Mg) 1 tab Q6H PRN PO PAIN 1-10 11/14/17 16:00 Lisinopril (Prinivil) 10 mg DAILY PO 11/15/17 09:00 12/01/17 09:08 Sucralfate (Carafate) 1 gm QID PO 11/14/17 18:00 12/01/17 13:12 Temazepam (Restoril) 30 mg HS PRN PO INSOMNIA 11/14/17 16:00 11/30/17 21:40 Topiramate (Topamax) 25 mg BID PO 11/14/17 21:00 12/01/17 09:08 Triamterene/HCTZ (Maxzide 37.5-25 Mg) 0.5 tab DAILY PO 11/15/17 09:00 12/01/17 09:08 Pantoprazole Sodium (Protonix) 40 mg DAILY PO 11/15/17 09:00 12/01/17 09:08 Patient Own Medication PT OWN MED: MOVAN... DAILY PO 11/15/17 09:00 Future Hold Amylase/Lipase/ Protease (Creon 24-76-120) 1 cap TIDPC PO 11/14/17 18:30 12/01/17 13:12 Sodium Chloride (NS Flush) 2 ml UNSCH PRN IV FLUSH FLUSH AFTER USING IV ACCESS 11/14/17 16:15 Sodium Chloride (NS Flush) 2 ml BID IV FLUSH 11/14/17 21:00 12/01/17 09:05 Acetaminophen (Tylenol) 650 mg Q4H PRN PO TEMP > 100.4 11/14/17 16:15 Ondansetron HCl (Zofran Inj) 4 mg Q6H PRN IVP NAUSEA OR VOMITING 11/14/17 16:15 Enoxaparin Sodium (Lovenox Inj) 40 mg Q24H SQ 11/14/17 18:00 11/30/17 18:33 Naloxone HCl (Narcan Inj) 0.4 mg UNSCH PRN IV PUSH SEE LABEL COMMENTS 11/14/17 16:15 Senna/Docusate Sodium (Mili-Colace) 1 tab BID PO 11/14/17 21:00 12/01/17 09:08 Magnesium Hydroxide (Milk Of Magnesia Liq) 30 ml Q12H PRN PO Mild constipation 11/14/17 16:15 12/01/17 02:58 Sennosides (Senokot) 17.2 mg Q12H PRN PO Moderate constipation 11/14/17 16:15 Bisacodyl (Dulcolax Supp) 10 mg DAILY PRN RECTAL SEVERE CONSITIPATION 11/14/17 16:15 Lactulose (Lactulose Liq) 30 ml DAILY PRN PO SEVERE CONSITIPATION 11/14/17 16:15 11/30/17 21:28 Patient Own Medication PT OWN MED: LINZ... DAILY PO 11/15/17 09:00 12/01/17 06:39 Pregabalin (Lyrica) 200 mg TID PO 11/15/17 18:00 12/01/17 13:12 Sumatriptan Succinate (Imitrex Inj) 6 mg DAILY PRN SQ MIGRAIN HEADACHE 11/15/17 16:30 11/26/17 21:40 Guaifenesin/ Dextromethorphan (Robitussin Dm 200-20 Mg/10 ml Liq) 10 ml Q6H PRN PO cough 11/16/17 12:00 11/26/17 16:50 Sumatriptan Succinate (Imitrex Inj) 6 mg UNSCH PRN SQ MIGRAINE HEADACHE intractable 11/16/17 18:00 11/29/17 20:16 Acetaminophen/ Codeine Phosphate (Tylenol - Codeine 120-12 Liq) 5 ml Q4H PRN PO persistent cough 11/16/17 19:00 12/01/17 13:13 Guaifenesin (Mucinex Er) 600 mg BID PO 11/16/17 21:00 12/01/17 09:08 Levofloxacin/ Dextrose 100 ml @ 100 mls/hr Q24H IV 11/22/17 17:00 11/30/17 18:32 Dextrose (D50w (Vial) Inj) 50 ml UNSCH PRN IV PUSH HYPOGLYCEMIA-SEE COMMENTS 11/26/17 12:45 Glucagon (Glucagon Inj) 1 mg UNSCH PRN OTHER HYPOGLYCEMIA-SEE COMMENTS 11/26/17 12:45 Budesonide/ Formoterol Fumarate (Symbicort 160-4.5 Mcg Inh) 2 puff Q12HR INH 11/27/17 12:45 12/01/17 09:04 Insulin Human Regular (NovoLIN R SUPPLEMENTAL SCALE) 1 ACHS SLIDING SCALE SQ 11/28/17 12:00 12/01/17 12:20 Albuterol Sulfate (Albuterol Neb) 2.5 mg Q2HR NEB PRN INH SHORTNESS OF BREATH 11/28/17 17:15 11/29/17 20:10 Albuterol/ Ipratropium (Duoneb Neb) 1 ampule Q4HR NEB NEB 11/30/17 00:00 12/01/17 16:23 Acetylcysteine (Mucomyst 20% Neb) 2 ml Q4HR WHILE AWAKE NEB NEB 11/30/17 12:00 12/01/17 16:24 Voriconazole (Vfend) 200 mg Q12HR PO 12/01/17 09:00 12/01/17 09:08 Insulin Detemir (Levemir Inj) 7 units Q12HR SQ 11/30/17 21:00 12/01/17 09:09 Prednisone (Deltasone) 20 mg BID PO 12/01/17 21:00 SOCIAL HISTORY: The patient is . He smokes occasional cigar. Occasional social alcohol. No substance abuse. OBJECTIVE: Vital Signs Date Time Temp Pulse Resp B/P (MAP) Pulse Ox O2 Delivery O2 Flow Rate FiO2 12/01/17 16:07 20 12/01/17 12:00 97.5 69 20 130/62 (84) 93 12/01/17 10:44 94 Nasal Cannula 2.00 12/01/17 08:22 94 Nasal Cannula 2.00 12/01/17 08:00 75 12/01/17 04:33 97.3 84 19 140/71 (94) 94 12/01/17 03:41 93 12/01/17 00:47 98.0 81 18 130/60 (83) 96 12/01/17 00:02 83 12/01/17 00:00 Nasal Cannula 2.00 11/30/17 21:30 Nasal Cannula 2.00 11/30/17 20:04 94 Nasal Cannula 2.00 11/30/17 20:03 90 11/30/17 20:00 98.2 90 20 124/68 (86) 93 Laboratory Tests Test 11/28/17 11:57 White Blood Count 9.5 TH/MM3 Red Blood Count 4.54 MIL/MM3 Hemoglobin 14.1 GM/DL Hematocrit 41.8 % Mean Corpuscular Volume 92.2 FL Mean Corpuscular Hemoglobin 31.2 PG Mean Corpuscular Hemoglobin Concent 33.8 % Red Cell Distribution Width 15.6 % Platelet Count 147 TH/MM3 Mean Platelet Volume 8.7 FL Neutrophils (%) (Auto) 88.9 % Lymphocytes (%) (Auto) 2.7 % Monocytes (%) (Auto) 8.3 % Eosinophils (%) (Auto) 0.0 % Basophils (%) (Auto) 0.1 % Neutrophils # (Auto) 8.4 TH/MM3 Lymphocytes # (Auto) 0.3 TH/MM3 Monocytes # (Auto) 0.8 TH/MM3 Eosinophils # (Auto) 0.0 TH/MM3 Basophils # (Auto) 0.0 TH/MM3 CBC Comment DIFF FINAL Differential Comment Laboratory Tests Test 11/28/17 11:57 Blood Urea Nitrogen 30 MG/DL Creatinine 1.60 MG/DL Random Glucose 309 MG/DL Calcium Level 8.0 MG/DL Sodium Level 134 MEQ/L Potassium Level 4.5 MEQ/L Chloride Level 100 MEQ/L Carbon Dioxide Level 23.8 MEQ/L Anion Gap 10 MEQ/L Estimat Glomerular Filtration Rate 42 ML/MIN IMAGING: Chest X-Ray [id number] Signed Impressions: Service Date/Time: Sunday, November 26, 2017 06:09 - CONCLUSION: Clearing bibasilar airspace disease as described above. Otherwise stable chest. Emerson Hyde MD Chest X-Ray [id number] Signed Impressions: Service Date/Time: Sunday, November 19, 2017 06:48 - CONCLUSION: Acute bibasilar airspace disease with subsegmental consolidation on the left. Emerson Hyde MD CT Angiography [id number] Signed Impressions: Service Date/Time: Tuesday, November 14, 2017 14:21 - CONCLUSION: 1. No evidence of pulmonary embolism. 2. Patchy parenchymal infiltrates in both lung bases, left greater than right. 3. Compensated cardiomegaly. Maksim Scanlon MD CT Angiography [id number] Signed Impressions: Service Date/Time: Tuesday, November 14, 2017 14:21 - CONCLUSION: 1. No evidence of pulmonary embolism. 2. Patchy parenchymal infiltrates in both lung bases, left greater than right. 3. Compensated cardiomegaly. Maksim Scanlon MD PHYSICAL EXAMINATION: GENERAL: Awake and alert. looks fatigued. No acute distress. HEENT: Extraocular movements grossly intact, pupils reactive to light. No icterus. Moist mucosa. No lesions. NECK: Supple without adenopathy. LUNGS: Bilateral coarse breath sounds. HEART: Irregular rate and rhythm. No murmurs, rubs, or gallops. ABDOMEN: Bowel sounds present, soft, no tenderness. EXTREMITIES: No clubbing, cyanosis, or edema. SKIN: No diffuse rash. NEUROLOGIC: No gross focal findings. PSYCHIATRIC: Calm and cooperative. IMPRESSION: 1. Pneumonia. ? etiology. Patient with respiratory symptoms with cough and dyspnea on exertion and CT scan shows patchy focal infiltrates in both lung bases. Bronchoscopy culture pending. Danny albicans isolated on culture. Identity pending. 2. COPD. 3. Failed outpatient treatment with oral antibiotic; doxycycline, Levaquin, and azithromycin. 4. Acute kidney disease, mild. RECOMMENDATIONS: 1. Continue Levaquin PO x 5 days more. 2. Change Voriconazole to Diflucan x 5 days more. 3. Follow clinical status. Okay to discharge tomorrow from ID standpoint. Mack Hodgson MD Dec 01, 2017 16:52
[2017-12-01] MEDS ORDERED: POLYETHYLENE GLYCOL 17 GM PKG PO ONE (17:15)
[2017-12-01] MEDS ORDERED: DOCUSATE SODIUM 100 MG CAP PO ONE (17:15)
[2017-12-01] MEDS ORDERED: SOD PHOSPHATE/SOD BIPHOSPHATE (ADULT) ENEMA 133ML RECTAL ONE (20:00)
[2017-12-01] MEDS: predniSONE 20 MG TAB PO SCH (20:50)
[2017-12-01] MEDS: DONEPEZIL HCL 5 MG TAB PO SCH (20:50)
--- NOTE | 2017-12-01 20:56 | RADRPT ---
EXAM DATE/TIME: 12/01/2017 20:02 [facility] COMPARISON: CHEST PA & LAT, November 27, 2017, 15:32. INDICATIONS : Dyspnea. MEDICAL HISTORY : CVA, Parkinsons disease, coronary artery disease. SURGICAL HISTORY : Appendectomy. Carotid endarterectomy. ENCOUNTER: Subsequent ACUITY: 1 week PAIN SCORE: 0/10 LOCATION: Bilateral chest FINDINGS: Trace atelectasis/scarring again seen left base. Previously seen atelectasis right base has essential ly resolved. No pleural effusion demonstrated. No pneumothorax. Heart size stable, within normal limits. CONCLUSION: Trace left base atelectasis/scarring. Clear right lung. Kwadwo Quinteros MD on December 01, 2017 at 20:53 Board Certified Radiologist. This report was verified electronically.
[2017-12-01] MEDS: TEMAZEPAM 15 MG CAP PO PRN (22:24)
[2017-12-01] MEDS: guaiFENesin/DEXTROMETHORPHAN 200 MG/20 MG/10 ML CUP PO PRN (22:27)
[2017-12-02] VITALS (7 sets, daily range): BP systolic 143–174; BP diastolic 75–83; PULSE 70–81; RESP 18–20; TEMP 97.3–97.4; O2SAT 90–95
--- NOTE | 2017-12-02 01:06 | RADRPT ---
EXAM DATE/TIME: 12/02/2017 00:42 [facility] COMPARISON: ABDOMEN KUB ONLY, December 14, 2015, 19:40. INDICATIONS : Abdominal pain and distention. MEDICAL HISTORY : None. SURGICAL HISTORY : Appendectomy. Pain stimulator. Lower back surgery. ENCOUNTER: Initial ACUITY: 1 day PAIN SCORE: 8/10 LOCATION: all quadrants. FINDINGS: 2 portable supine views the abdomen show a gas distended colon. A moderate amount of stool seen withi n the ascending colon. The descending colon and sigmoid colon are decompressed. No dilated small mary l loops. Orthopedic hardware noted within the lumbar spine. Stimulating device overlies the thoracolu mbar junction. No organomegaly. CONCLUSION: Gas distended proximal colon with decompressed distal colon. I cannot exclude a colonic obstruction. Consider CT to further evaluate. Boris Oswald Jr., MD on December 02, 2017 at 1:04 Board Certified Radiologist. This report was verified electronically.
[2017-12-02] MEDS ORDERED: DIATRIZOATE MEGLUM/DIATRIZOATE SOD 9 ML CUP PO ONE (02:20)
[2017-12-02] MEDS: RESP: ALBUTEROL 2.5 MG/IPRATROPIUM 0.5 MG NEB (SCH) NEB ×3 (04:11→16:00)
--- NOTE | 2017-12-02 05:00 | RADRPT ---
EXAM DATE/TIME: 12/02/2017 04:48 [facility] COMPARISON: No previous studies available for comparison. INDICATIONS : Abdomen pain. ORAL CONTRAST: No oral contrast ingested. RADIATION DOSE: 16.50 CTDIvol (mGy) MEDICAL HISTORY : Dementia. Renal calculi. Stroke. SURGICAL HISTORY : Lumbar fusion, pain pump. ENCOUNTER: Initial ACUITY: 1 day PAIN SCALE: 6/10 LOCATION: Bilateral abdomen TECHNIQUE: Volumetric scanning of the abdomen and pelvis was performed. Using automated exposure control and ad justment of the mA and/or kV according to patient size, radiation dose was kept as low as reasonably achievable to obtain optimal diagnostic quality images. DICOM format image data is available electro nically for review and comparison. FINDINGS: LOWER LUNGS: Emphysematous changes within the lung bases. Linear scarring within both lower lobes. LIVER: Homogeneous density without lesion. There is no dilation of the biliary tree. Prior cholecystectomy. SPLEEN: Normal size without lesion. PANCREAS: The pancreas is diffusely fatty replaced. No mass or ductal dilatation. No inflammatory change. KIDNEYS: Normal in size and shape. There is no mass, stone, or hydronephrosis. ADRENAL GLANDS: Within normal limits. VASCULAR: There is no aortic aneurysm. BOWEL/MESENTERY: The proximal colon is distended predominantly with air but a small amount of stool. The slowly tapers at the level of the descending colon and proximal sigmoid colon toward more normal caliber structure . No obstructing mass or lesion. No volvulus. Scattered colonic diverticuli within the sigmoid colon. No inflammatory change within the colon 4 remaining bowel structures. No free air or free fluid. Sto mach is unremarkable. ABDOMINAL WALL: Within normal limits. RETROPERITONEUM: There is no lymphadenopathy. BLADDER: No wall thickening or mass. REPRODUCTIVE: Within normal limits. INGUINAL: There is no lymphadenopathy or hernia. MUSCULOSKELETAL: Orthopedic hardware involving L4-L5. Neuro stimulator pack overlies the left buttock. CONCLUSION: 1. Gaseous distention of all of the more proximal colon without obstructing mass or volvulus. No infl ammatory change observed. 2. Diverticulosis of the colon without acute inflammatory change. 3. Prior cholecystectomy. 4. Fatty replacement of the pancreas. Boris Oswald Jr., MD on December 02, 2017 at 4:55 Board Certified Radiologist. This report was verified electronically.
[2017-12-02] MEDS: CARBIDOPA/LEVODOPA 25 MG/100 MG TAB PO SCH ×2 (05:39→13:07)
[2017-12-02] MEDS: SUMAtriptan INJ 6 MG/0.5 ML VIAL SQ PRN (05:46)
[2017-12-02] MEDS: guaiFENesin/DEXTROMETHORPHAN 200 MG/20 MG/10 ML CUP PO PRN ×2 (05:49→13:08)
[2017-12-02] MEDS: RESP: ACETYLCYSTEINE 20% 4 ML NEB NEB SCH ×2 (07:53→16:00)
[2017-12-02] MEDS ORDERED: SODIUM CHLOR 0.9% 1000 ML INJ 1,000 ML IV SCH (08:30)
[2017-12-02] MEDS ORDERED: SODIUM CHLORID 0.9% 500 ML INJ 500 ML IV ONE (08:30)
[2017-12-02] MEDS ORDERED: SODIUM CHLOR 0.9% 1000 ML INJ 1,000 ML IV ONE (08:30)
[2017-12-02] MEDS: PREGABALIN 100 MG CAP PO SCH ×2 (08:58→12:05)
[2017-12-02] MEDS: ESCITALOPRAM OXALATE 10 MG TAB PO SCH (08:58)
[2017-12-02] MEDS: ASPIRIN EC 81 MG TABEC PO SCH (08:58)
[2017-12-02] MEDS: SUCRALFATE 1 GM TAB PO SCH ×2 (08:58→12:06)
[2017-12-02] MEDS: guaiFENesin E.R. 600 MG TAB PO SCH (08:58)
[2017-12-02] MEDS: SODIUM CHLORIDE 0.9% FLUSH 10 ML FLUSH IV FLUSH SCH (08:59)
[2017-12-02] MEDS ORDERED: FLUCONAZOLE 200 MG TAB PO SCH (09:00)
[2017-12-02] MEDS: BUDESONIDE-FORMOTEROL 160/4.5 MCG INHALER INH SCH (09:00)
[2017-12-02] MEDS: LIPASE/PROTEASE/AMYLASE (24,000/76,000/120,000) CAP PO SCH ×2 (09:01→13:01)
[2017-12-02] MEDS: LINZESS 145 MCG PO SCH (09:01)
[2017-12-02] MEDS: LISINOPRIL 10 MG TAB PO SCH (09:02)
[2017-12-02] MEDS: DULoxetine HCl DR 60 MG CAP PO SCH (09:02)
[2017-12-02] MEDS: predniSONE 20 MG TAB PO SCH (09:02)
[2017-12-02] MEDS: DOCUSATE SODIUM 50 MG/SENNA 8.6 MG TAB PO SCH (09:02)
[2017-12-02] MEDS: PANTOPRAZOLE SOD 40 MG DELAYED RELEASE TAB PO SCH (09:02)
[2017-12-02] MEDS: TOPIRAMATE 25 MG TAB PO SCH (09:03)
[2017-12-02] MEDS: INSULIN DETEMIR 100 UNITS/ML VIAL SQ SCH (09:03)
[2017-12-02] MEDS: INSULIN NovoLIN REGULAR SUPPLEMENTAL SCALE SQ SCH ×2 (09:08→11:49)
[2017-12-02 09:40] LABS: MAGNESIUM 2.4 MG/DL (1.5-2.5); PHOSPHORUS 3.3 MG/DL (2.5-4.9)
[2017-12-02] MEDS ORDERED: DIATRIZOATE MEGLUM/DIATRIZOATE SOD 120 ML BTL (for RAD DIAG) RECTAL ONE (10:00)
--- NOTE | 2017-12-02 10:41 | RADRPT ---
EXAM DATE/TIME: 12/02/2017 09:22 [facility] COMPARISON: No previous studies available for comparison. INDICATIONS : Constipation, abdominal distention FLUORO TIME: 2.4 minutes IMAGE COUNT: 10 CONTRAST: 1. Gastroview MEDICAL HISTORY : constipation, stroke, spinal fusion SURGICAL HISTORY : spinal stimulator ENCOUNTER: Subsequent ACUITY: 4 - 6 days PAIN SCORE: 0/10 LOCATION: colon FINDINGS: Preliminary film is unremarkable except for colonic ileus and moderate to severe right colonic consti pation. Under fluoroscopic guidance a Gastrografin enema was performed with flow of contrast to the cecal tip . CONCLUSION: There is colonic diverticulosis, especially sigmoid. Moderate to severe right-sided c olonic constipation present. Exam performed for therapeutic purposes for constipation. Nima Tse MD on December 02, 2017 at 10:37 Board Certified Radiologist. This report was verified electronically.
--- NOTE | 2017-12-02 15:27 | HHI.PR ---
Subjective Remarks alert on o2 UP IN CHAIR Objective Vital Signs Date Time Temp Pulse Resp B/P (MAP) Pulse Ox O2 Delivery O2 Flow Rate FiO2 12/02/17 08:00 70 12/02/17 08:00 Nasal Cannula 2.00 21 12/02/17 08:00 97.3 77 20 150/75 (100) 94 12/02/17 07:53 95 Nasal Cannula 2.00 12/02/17 04:00 97.3 73 18 143/83 (103) 95 12/02/17 00:28 92 Nasal Cannula 2.00 12/02/17 00:00 81 12/01/17 23:20 Nasal Cannula 2.00 12/01/17 23:19 97.9 69 22 132/66 (88) 92 12/01/17 21:04 94 Nasal Cannula 2.00 12/01/17 20:19 Nasal Cannula 2.00 12/01/17 20:19 97.6 76 20 126/74 (91) 96 12/01/17 20:05 84 12/01/17 19:27 18 12/01/17 16:00 97.6 82 19 137/54 (81) 92 12/01/17 16:00 92 I/O 12/01/17 12/01/17 12/01/17 12/02/17 12/02/17 12/02/17 07:00 15:00 23:00 07:00 15:00 23:00 Intake Total 610 ml 100 ml 2340 ml Output Total 100 ml Balance 610 ml 100 ml 2340 ml -100 ml Intake Oral 360 ml 1440 ml IV Total 250 ml 100 ml 900 ml Gastric Drainage Total 100 ml # Voids 10 4 # Bowel Movements 1 Result Diagram: 11/28/17 1157 12/01/17 0750 Objective Remarks GENERAL: SKIN: Warm and dry. HEAD: Atraumatic. Normocephalic. EYES: Pupils equal and round. No scleral icterus. No injection or drainage. ENT: No nasal bleeding or discharge. Mucous membranes pink and moist. NECK: Trachea midline. No JVD. CARDIOVASCULAR: Regular rate and rhythm. RESPIRATORY: No accessory muscle use. SCATTERED RHONCHI . Breath sounds equal bilaterally. GASTROINTESTINAL: Abdomen soft, non-tender, nondistended. Hepatic and splenic margins not palpable. MUSCULOSKELETAL: Extremities without clubbing, cyanosis, or edema. No obvious deformities. NEUROLOGICAL: Awake and alert. No obvious cranial nerve deficits. Motor grossly within normal limits. Five out of 5 muscle strength in the arms and legs. Normal speech. PSYCHIATRIC: Appropriate mood and affect; insight and judgment normal. Assessment and Plan Assessment and Plan RESPIRATORY FAILURE PNA, RESOLVING ELEMENT OF COPD, WITH SIGNIFICANT AIRWAY HYPERCOAGULABILITY PLAN O2 ANTIBX F/U CXRAY INCREASE ACTIVITY HOME SOON Ramos Beasley MD Dec 02, 2017 15:27
[2017-12-02] MEDS ORDERED: DIFL200T PO (16:03)
[2017-12-02] MEDS ORDERED: LEVO750T3 PO (16:03)
[2017-12-02] MEDS ORDERED: PRED10 PO (16:03)
[2017-12-02] MEDS ORDERED: LISI2.5T3 PO (16:05)
--- NOTE | 2017-12-02 16:06 | HHI.DCPOC ---
Discharge Care Plan Diagnosis: (1) Pneumonia (2) DM type 2 (diabetes mellitus, type 2) (3) Hypertension (4) Acute on chronic renal insufficiency (5) Gastric distention (6) Constipation Additional Problems Follow up close with your PCP to have your kidney function checked in 3-5 days and re-dose your blood pressure medications appropriately. Goals to Promote Your Health * To prevent worsening of your condition and complications * To maintain your health at the optimal level Directions to Meet Your Goals Take your medications as prescribed Follow your dietary instruction Follow activity as directed Keep your appointments as scheduled Take your immunizations and boosters as scheduled If your symptoms worsen call your PCP, if no PCP go to Urgent Care Center or Emergency Room Smoking is Dangerous to Your Health. Avoid second hand smoke Call the 24-hour hour crisis hotline for domestic abuse at Favian Dey MD Dec 02, 2017 16:06
[2017-12-02] MEDS ORDERED: MIRA3350 PO (16:07)
[2017-12-02] MEDS ORDERED: IPRASOL INH (17:56)
[2017-12-02] MEDS ORDERED: ACET20SO3 NEB (17:59)
--- NOTE | 2017-12-02 22:32 | HHI.DS ---
Discharge Summary Admission Date Nov 14, 2017 at 15:35 Discharge Date: Dec 02, 2017 Admitting Diagnosis failed outpatient treatment CAP (1) Gastric distention ICD Code: K31.89 - Other diseases of stomach and duodenum (2) DM type 2 (diabetes mellitus, type 2) ICD Code: E11.9 - Type 2 diabetes mellitus without complications (3) Acute on chronic renal insufficiency ICD Code: N17.9 - Acute on chronic renal insufficiency; N18.9 - Chronic kidney disease, unspecified Status: Acute (4) Pneumonia ICD Code: J18.9 - Pneumonia, unspecified organism (5) Constipation ICD Code: K59.00 - Constipation, unspecified Procedures 2 bronchoscopies and Gastrografin enema and nasogastric tube insertion + suction Brief History - From Admission 75 yrs old man with a PMHx of Monoclonal gammopathy, DGD, Hyperlipidemia, CVA, chronic pancreatitis. GERD, came to the ED for further evaluation. Patient with recent history of CAP presents for further evaluation of worsening cough, shortness of breath, breathing difficulties. Patient denies fevers, chills, chest pain, palpitations, abdominal pain, nausea, vomiting. He endorses compliance with doxycycline. He states that prior to the doxycycline he completed a course of Levaquin and a Z-Saad. He endorses occasional cigar smoking. He states that he has a follow-up appointment with his primary care provider tomorrow. Last albuterol treatment overnight. The patient is also on chronic use of prednisone due to vasculitis he follows with rheumatology as outpatient. CBC/BMP: 11/28/17 1157 12/01/17 0750 Significant Findings Laboratory Tests Test 11/30/17 12:05 12/01/17 07:50 12/01/17 17:50 12/02/17 08:50 Blood Urea Nitrogen 37 MG/DL (7-18) 38 MG/DL (7-18) Creatinine 1.50 MG/DL (0.60-1.30) 1.50 MG/DL (0.60-1.30) Random Glucose 402 MG/DL (74-106) 265 MG/DL (74-106) Calcium Level 8.1 MG/DL (8.5-10.1) 8.0 MG/DL (8.5-10.1) Sodium Level 133 MEQ/L (136-145) Carbon Dioxide Level 20.6 MEQ/L (21.0-32.0) Estimat Glomerular Filtration Rate 46 ML/MIN (>89) 46 ML/MIN (>89) Free Thyroxine 0.66 NG/DL (0.76-1.46) Thyroid Stimulating Hormone 3rd Gen 0.261 uIU/ML (0.358-3.740) PE at Discharge Minimal rhonchi, unlabored breathing Abdomen softer than yesterday, slightly less distended Hospital Course Patient was admitted, started on IV steroids. Infectious disease and pulmonology has been consulted due to the patient's persistent dyspneic status. Patient underwent 2 bronchoscopies with removal of significant mucus plugging. Cultures did grow out some yeast, patient had been placed on antifungals and antibiotics. Patient eventually did undergo NG tube decompression along with a Gastrografin enema which helped stabilize the patient 's symptoms. He was lowered on his lisinopril dosing due to some mild AK I was instructed to follow-up closely with his PCP to monitor his renal function and electrolytes. Patient has been maximal benefit from hospitalization and is clinically stable for discharge with a steroid taper per pulmonology. Pt Condition on Discharge: Stable Discharge Disposition: Discharge Home Discharge Time: > 30 minutes Discharge Instructions DIET: Follow Instructions for: Heart Healthy Diet, Diabetic Diet Activities you can perform: Regular-No Restrictions Other Activity Instructions: See her primary care doctor in 3-5 days to have your kidney function checked and have your blood pressure medication readjusted. Drink 8-10 glasses of water daily. Follow up Referrals: Appointment for Follow Up - 1 Week with rheumatology PCP Follow-up - 2-3 Days Pulmonology - 10 Days New Medications: Acetylcysteine Liq/Neb (Acetylcysteine Liq/Neb) 200 mg/ml Soln 2 ML NEB QID for Breathing Treatment, #180 NEBULE 0 Refills Blood Glucose Monitoring W/Device (Glucocom Blood Glucose Mo W/Device) 1 Kit Kit KIT .XX DIRECTED for Blood Sugar Management, #1 Glucocom Test Strips (Glucocom Test Strips) 1 Effie Effie EA .XX DIRECTED for Blood Sugar Management, #1 Ipratropium-Albuterol Neb (Duoneb) 0.5-2.5 Mg/3 Ml Neb 1 NEBULE INH Q4HR NEB for Breathing Treatment, #180 NEBULE 0 Refills Lancets (Lancets) 1 [facility] Mis EA .XX DIRECTED for Blood Sugar Management, #1 0 Refills Levofloxacin (Levofloxacin) 750 Mg Tablet 750 MG PO DAILY for Infection, #4 TAB 0 Refills Lisinopril (Lisinopril) 2.5 Mg Tab 2.5 MG PO DAILY, #30 TAB 0 Refills Parenteral Therapy Supplies (Sharpsafety Sharps Contai) 1 [facility] Mis EA .XX DIRECTED, #1 0 Refills Polyethylene Glycol 3350 Powder (Miralax Powder) 17 Gm Powd 17 GM PO DAILY for Constipation, #1 CAN 0 Refills Mix and dissolve one measuring cap-ful (17 grams) in water or juice. Prednisone (Prednisone) 10 Mg Tab 10 MG PO DIRECTED for bronchitis, #30 TAB 0 Refills 40 mg daily for 2 d, then 30 mg daily for 3 d, then 20 mg daily for 3 d, then 10 mg daily Fluconazole (Diflucan) 200 Mg Tab 200 MG PO DAILY for yeast infection, #4 TAB Glipizide (Glucotrol) 5 Mg Tab 5 MG PO BID@08,17 for Blood Sugar Management, #60 TAB Take 30 minutes before a meal [Acetamin-Codeine 120-12 Liq] () 5 ML ELIX 5 ML PO Q4H PRN for persistent cough , #1 BOTTLE Continued Medications: Aspirin (Aspirin) 81 Mg Tabdr 81 MG PO DAILY, TAB Carbidopa-Levodopa (Carbidopa-Levodopa) 25-100 Mg Tab 1 TAB PO Q8HR for Parkinson Disease Mgmt, #90 TAB 0 Refills Donepezil (Aricept) 10 Mg Tab 10 MG PO HS for Dementia, #30 TAB [address] (Cymbalta DR) 60 Mg Capdr 60 MG PO DAILY, #30 CAP 0 Refills Escitalopram (Lexapro) 10 Mg Tab 10 MG PO DAILY, #30 TAB [address] (Nexium) 40 Mg Capdr 40 MG PO DAILY, CAP 0 Refills Hydrocodone-Acetaminophen (Lortab) 5-325 Mg Tab 1 TAB PO Q6H PRN for PAIN, #16 TAB 0 Refills Linaclotide (Linzess) 145 Mcg Cap 145 MCG PO DAILY, CAP 0 Refills Naloxegol (Movantik) 25 Mg Tab 25 MG PO DAILY for Prevent Constipation, #30 TAB 0 Refills Pancrelipase (Zenpep) 25,000-85,000-136,000 Units Cap 1 CAP PO TIDPC for Digestive Aid, #90 CAP 0 Refills Pregabalin (Lyrica) 200 Mg Cap 200 MG PO TID, #90 CAP 0 Refills Sildenafil (Viagra) 100 Mg Tab 100 MG PO DAILY PRN for ERECTILE DYSFUNCTION, TAB 0 Refills Sucralfate (Carafate) 1 Gm Tab 1 GM PO QID for Ulcer Prevention, #120 TAB 0 Refills On empty stomach Temazepam (Temazepam) 30 Mg Cap 30 MG PO HS PRN for INSOMNIA, #30 CAP 0 Refills Topiramate (Topamax) 25 Mg Tab 25 MG PO BID for Control Seizures, #60 TAB 0 Refills Discontinued Medications: Celecoxib (Celebrex) 200 Mg Cap 200 MG PO DAILY for Pain Management, CAP 0 Refills Lisinopril (Lisinopril) 10 Mg Tab 10 MG PO DAILY, #30 TAB 0 Refills Triamterene-Hydrochlorothiazide (Maxzide-25) 37.5-25 Mg Tab 0.5 TAB PO DAILY, #30 TAB 0 Refills Favian Dey MD Dec 02, 2017 22:32
[2017-12-03] MEDS ORDERED: ASPI81CH6 CHEW (19:35)
[2017-12-03] MEDS ORDERED: ARIC23TA PO (19:35)
== END 2017-12-02 18:22 | disposition home or self-care (01) | DRG 193 ==
LOC: NEPC 12:05 → NEDA 15:35 → N04B 16:30
PROVIDERS: ADMIT Hospitalist; ATTEND Hospitalist
PROC: 0BC78ZZ Extirpation of Matter from Left Main Bronchus, Via Natural or Artificial Opening Endoscopic (ICD-10-PCS; principal; 2017-11-23)
PROC: 0BC38ZZ Extirpation of Matter from Right Main Bronchus, Via Natural or Artificial Opening Endoscopic (ICD-10-PCS; 2017-11-23)
PROC: 0B968ZX Drainage of Right Lower Lobe Bronchus, Via Natural or Artificial Opening Endoscopic, Diagnostic (ICD-10-PCS; 2017-11-23)
PROC: 0BC78ZZ Extirpation of Matter from Left Main Bronchus, Via Natural or Artificial Opening Endoscopic (ICD-10-PCS; 2017-11-29)
PROC: 0BC38ZZ Extirpation of Matter from Right Main Bronchus, Via Natural or Artificial Opening Endoscopic (ICD-10-PCS; 2017-11-29)
DX: J18.9 Pneumonia, unspecified organism (principal); J96.90 Respiratory failure, unspecified, unspecified whether with hypoxia or hypercapnia; N17.9 Acute kidney failure, unspecified; T17.590A Other foreign object in bronchus causing asphyxiation, initial encounter; J44.0 Chronic obstructive pulmonary disease with (acute) lower respiratory infection; J98.11 Atelectasis; B37.9 Candidiasis, unspecified; I12.9 Hypertensive chronic kidney disease with stage 1 through stage 4 chronic kidney disease, or unspecified chronic kidney disease; J44.1 Chronic obstructive pulmonary disease with (acute) exacerbation; E11.22 Type 2 diabetes mellitus with diabetic chronic kidney disease; I77.6 Arteritis, unspecified; K21.9 Gastro-esophageal reflux disease without esophagitis; K59.00 Constipation, unspecified; G43.909 Migraine, unspecified, not intractable, without status migrainosus; E78.5 Hyperlipidemia, unspecified; G89.29 Other chronic pain; J40 Bronchitis, not specified as acute or chronic; M54.5 Low back pain; K31.89 Other diseases of stomach and duodenum; N18.9 Chronic kidney disease, unspecified; F32.9 Major depressive disorder, single episode, unspecified; Z72.0 Tobacco use; Z79.52 Long term (current) use of systemic steroids; Z86.73 Personal history of transient ischemic attack (TIA), and cerebral infarction without residual deficits; G20 Parkinson's disease; I25.10 Atherosclerotic heart disease of native coronary artery without angina pectoris
CPT/HCPCS: 31622; 31623; 71045; 71046; 71275; 74018; 74176; 74270; 80048; 80053; 80202; 82550; 82552; 82948; 83036; 83615; 83735; 83880; 84100; 84145; 84439; 84443; 84484; 85025; 85610; 85652; 85730; 86038; 86738; 87015; 87040; 87070; 87102; 87106; 87116; 87205; 87206; 87449; 88112; 88160; 88305; 88333; 93005; 93306; 94060; 94150; 94640; 94664; 94667; 94668; 96365; 96375; J0456; J1650; J1815; J1956; J2250; J2543; J2920; J2930; J3030; J3370; J3465; J7030; J7040; J7050; J7512; J7608; J7613; Q9963; Q9967

== ENCOUNTER 2017-12-03 18:47 | Inpatient (IN) | payer MEDICARE ==
[~2017-12-03] VITALS: Ht 182.9 cm; Wt 110.0 kg
[2017-12-03] VITALS (7 sets, daily range): BP systolic 100–107; BP diastolic 56–61; PULSE 89–95; RESP 16–25; TEMP 97.8–98.7; O2SAT 85–95
[~2017-12-03 18:47] MED LIST changes: +ACET20SO3 NEB; +Acetamin-Codeine 120-12 Liq PO; +BIOM30MI; -CELE200C PO; +DIFL200T PO; -DOXY100C PO; +GLIP5 PO; +GLUCKIT15; +GLUCTES12; -IMIT100T PO; +IPRASOL INH; +LANCETS1 MI1; +LEVO750T3 PO; -LISI10TA3 PO; +LISI2.5T3 PO; -LYRI100C PO; +LYRI200C PO; -MAXZTAB PO; +MIRA3350 PO; +PRED10 PO
[2017-12-03] MEDS ORDERED: IODIXANOL 320 MG/ML 50 ML VIAL (for Rad CT) IVCONTRAST ONE (18:48)
[2017-12-03] MEDS ORDERED: ARIC23TA PO (19:35)
[2017-12-03] MEDS ORDERED: ASPI81CH6 CHEW (19:35)
[2017-12-03] MEDS ORDERED: RESP: ALBUTEROL 2.5 MG/IPRATROPIUM 0.5 MG NEB (SCH) INH ONE (19:45)
[2017-12-03] MEDS ORDERED: SODIUM CHLORIDE 0.9% FLUSH 10 ML FLUSH IVF PRN (19:45)
[2017-12-03 20:14] LABS: AUTOMATED NEUTROPHIL # 12.5 TH/MM3 (1.8-7.7); BASOPHIL % 0.2 % (0.0-2.0); EOSINOPHIL % 0.1 % (0.0-4.0); HEMATOCRIT 46.3 % (39.0-51.0); HEMOGLOBIN 15.3 GM/DL (13.0-17.0); LYMPH % 4.7 % (9.0-44.0); LYMPHOCYTE # 0.6 TH/MM3 (1.0-4.8); MEAN CELL VOLUME 92.6 FL (80.0-100.0); MEAN CORPUSCULAR HEMOGLOBIN 30.6 PG (27.0-34.0); MEAN PLATELET VOLUME 9.1 FL (7.0-11.0); MONO % 1.4 % (0.0-8.0); MONOCYTE # 0.2 TH/MM3 (0-0.9); NEUT % 93.6 % (16.0-70.0); PLATELET COUNT 135 TH/MM3 (150-450); WHITE BLOOD COUNT 13.3 TH/MM3 (4.0-11.0)
[2017-12-03 20:24] LABS: PROTHROMBIN TIME - PATIENT 10.3 SEC (9.8-11.6)
--- NOTE | 2017-12-03 20:35 | RADRPT ---
EXAM DATE/TIME: 12/03/2017 20:08 [facility] COMPARISON: CHEST PA & LAT, December 01, 2017, 20:02. INDICATIONS : Shortness of breath, cough, and chest pain. MEDICAL HISTORY : Pneumonia. SURGICAL HISTORY : None. ENCOUNTER: Sequela ACUITY: 3 weeks PAIN SCORE: 4/10 LOCATION: Bilateral chest FINDINGS: There is left base consolidation, slightly worse. Mild atelectasis developing right lung base. No lar ge effusion seen. No pneumothorax. Heart size stable, within normal limits. CONCLUSION: Modest worsening left base consolidation. Mild atelectasis developing right base. Kwadwo Quinteros MD on December 03, 2017 at 20:32 Board Certified Radiologist. This report was verified electronically.
[2017-12-03 20:51] LABS: BANDS 20 % (0-6); LYMPHOCYTES 3 % (9-44); MONOCYTES 2 % (0-8); NEUTROPHIL # MANUAL DIFF 12.6 TH/MM3 (1.8-7.7); POLYS (SEG NEUTROPHILS) 75 % (16-70)
[2017-12-03 20:53] LABS: OVALOCYTES 1+ (NORMAL)
[2017-12-03 20:55] LABS: ALBUMIN 2.7 GM/DL (3.4-5.0); ALKALINE PHOSPHATASE 77 U/L (45-117); ALT (GPT) 21 U/L (12-78); AST (GOT) 44 U/L (15-37); BICARBONATE 24.9 MEQ/L (21.0-32.0); BLOOD UREA NITROGEN 35 MG/DL (7-18); CALCIUM 8.3 MG/DL (8.5-10.1); CHLORIDE 101 MEQ/L (98-107); GLOMERULAR FILTRATION RATE 37 ML/MIN (>89); GLUCOSE,RANDOM 232 MG/DL (74-106); SODIUM (NA) 135 MEQ/L (136-145); TOTAL BILIRUBIN ADULT 0.9 MG/DL (0.2-1.0); TOTAL PROTEIN 6.4 GM/DL (6.4-8.2); TROPONIN I LESS THAN 0.02 NG/ML (0.02-0.05)
[2017-12-03] MEDS ORDERED: CEFEPIME INJ 1,000 MG in SODIUM CHLORIDE 0.9% INJ 100 ML IV ONE (21:00)
[2017-12-03] MEDS ORDERED: AZITHROMYCIN INJ 500 MG in SODIUM CHLOR 0.9% 250 ML INJ 250 ML IV ONE (21:00)
[2017-12-03] MEDS ORDERED: SODIUM BICARBONATE 8.4% INJ 50 MEQ/50 ML SYR IV PUSH ONE (21:30)
[2017-12-03] MEDS ORDERED: SODIUM POLYSTYRENE SULFONATE SUSP 15 GM/60 ML CUP PO ONE (21:30)
[2017-12-03] MEDS ORDERED: INSULIN HUMAN REGULAR 1,000 UNITS/10 ML VIAL IV PUSH ONE (21:30)
[2017-12-03] MEDS ORDERED: DEXTROSE 50% IN WATER 50 ML SYRINGE IV PUSH ONE (21:30)
[2017-12-03] MEDS ORDERED: SUMAtriptan INJ 6 MG/0.5 ML VIAL SQ ONE (22:00)
--- NOTE | 2017-12-03 23:07 | RADRPT ---
EXAM DATE/TIME: 12/03/2017 22:54 [facility] COMPARISON: CT PULMONARY ANGIOGRAM, November 14, 2017, 14:21. INDICATIONS : Generalized weakness with diffculty breathing. IV CONTRAST: 50 cc Visipaque (iodixanol) IV RADIATION DOSE: 23.44 CTDIvol (mGy) MEDICAL HISTORY : Cardiovascular disease. Diabetes mellitus type 2. Renal calculi.GERD SURGICAL HISTORY : Carotid endarterectomy. Appendectomy.Kyphoplasty.Lumbar fusion ENCOUNTER: Initial ACUITY: 1 day PAIN SCALE: 8/10 LOCATION: chest TECHNIQUE: Volumetric scanning of the chest was performed using a pulmonary embolism protocol MIP images were re constructed. Using automated exposure control and adjustment of the mA and/or kV according to patien t size, radiation dose was kept as low as reasonably achievable to obtain optimal diagnostic quality images. DICOM format image data is available electronically for review and comparison. Follow-up recommendations for detected pulmonary nodules are based at a minimum on nodule size and pa tient risk factors according to Fleischner Society Guidelines. FINDINGS: PULMONARY ARTERIES: Limited contrast in the pulmonary arteries. No large central pulmonary embolus identified, however... LUNGS: Patchy infiltrates seen previously have worsened in the interval. There is a new probably interstitia l process posteriorly in the right upper lobe. Dense consolidation in the left base with probable ate lectasis or additional area of infiltrate in the right base. No pneumothorax PLEURAE: There is no pleural thickening or pleural effusion. MEDIASTINUM: There is good visualization of the great vessels of the middle mediastinum. No evidence of mediastin al or hilar adenopathy/mass. MUSCULOSKELETAL: Within normal limits for patient age. MISCELLANEOUS: The visualized upper abdominal organs demonstrate no acute abnormality. Patient is status post cholec ystectomy. Benign-appearing cortical cyst in the midpole of the left kidney. Marked atrophic changes/ fatty replacement of the pancreatic parenchyma. CONCLUSION: 1. Somewhat limited exam of minimal contrast in the pulmonary artery. No large central pulmonary embo alea, however. 2. However, oblique patient's symptoms are probably related to worsening pneumonic infiltrates. New i nterstitial process posteriorly in the right upper lobe with areas of consolidation in both lung base s, left worse than right. Percy Ferraro MD on December 03, 2017 at 23:01 Board Certified Radiologist. This report was verified electronically.
--- NOTE | 2017-12-03 23:28 | PD ---
HPI Chief Complaint: General Weakness Time Seen by Provider: 19:34 Travel History International Travel<30 days: No Contact w/Intl Traveler<30days: No Traveled to known affect area: No History of Present Illness HPI Patient is a 77-year-old male who comes in complaining of shortness of breath. He was just discharged from the hospital yesterday after being treated for pneumonia for 3 weeks. He says he went home and was doing well and then became even more short of breath. He says he feels very weak. He denies any chest pain. He denies nausea or vomiting. He denies fever chills. Severity is moderate to severe. PFSH Past Medical History Hx Anticoagulant Therapy: No (ASA 81 mg po daily) Arthritis: Yes Asthma: No Autoimmune Disease: No Blood Disorders: No Anxiety: No Depression: Yes Heart Rhythm Problems: No Cancer: No Cardiovascular Problems: Yes (CVA,LEFT LEG NEUROPATHY RESIDUAL ) High Cholesterol: No Chemotherapy: No Chest Pain: No Congestive Heart Failure: No COPD: No Cerebrovascular Accident: Yes (R carotid arted stenosis repaired 4 years ago) Coronary Artery Disease: Yes Dementia: Yes Diabetes: Yes Patient Takes Glucophage: No Diminished Hearing: No Endocrine: No Gastrointestinal Disorders: No GERD: Yes Glaucoma: No Genitourinary: No Headaches: Yes Hepatitis: No Hiatal Hernia: No Heparin Induced Thrombocytopen: No Immune Disorder: No Implanted Vascular Access Dvce: No Kidney Stones: Yes Musculoskeletal: Yes Neurologic: Yes (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) Parkinson's Disease: Yes Psychiatric: No Reproductive: No Respiratory: No Integumentary: Yes (HX OF DERMATITIS SINCE SEP 2010) Immunizations Current: Yes Migraines: Yes Myocardial Infarction: No Pneumonia: Yes Radiation Therapy: No Renal Failure: No Seizures: No Sickle Cell Disease: No Sleep Apnea: No Thyroid Disease: No Ulcer: No Tetanus Vaccination: > 5 Years Influenza Vaccination: Yes Past Surgical History Abdominal Surgery: Yes (APPENDIX WHEN 12 YEARS OLD) AICD: No Appendectomy: Yes (12 years old of age ) Arteriovenous Shunt: No Body Medical Devices: SPINAL CORD IMPLANT Cardiac Surgery: Yes (RIGHT CAROTID ENDARECTOMY) Cholecystectomy: No Ear Surgery: No Endocrine Surgery: No Eye Surgery: Yes (CATARACTS) Genitourinary Surgery: No Gynecologic Surgery: No Insulin Pump: No Joint Replacement: Yes (BILATERAL KNEES -RIGHT PARTIAL KNEE-L TOTAL) Neurologic Surgery: No Oral Surgery: No Pacemaker: No Thoracic Surgery: No Other Surgery: Yes (BACK STIMULATOR- SPINAL CORD STIMULATOR PLACED IN LEFT BUTTOCKS, LT LEG FX) Social History Alcohol Use: Yes (SOCIALLY) Tobacco Use: No ("CIGAR ONCE IN A WHILE") Substance Use: No Allergies-Medications (Allergen,Severity, Reaction): Coded Allergies: No Known Allergies (Verified Allergy, Unknown, 11/14/17) Reported Meds & Prescriptions Reported Meds & Active Scripts Active Acetylcysteine Liq/Neb (Acetylcysteine) 200 mg/ml Soln 2 Ml NEB QID Duoneb (Ipratropium-Albuterol Neb) 0.5-2.5 Mg/3 Ml Neb 1 Nebule INH Q4HR NEB Miralax Powder (Polyethylene Glycol 3350 Powder) 17 Gm Powd 17 Gm PO DAILY Mix and dissolve one measuring cap-ful (17 grams) in water or juice. Lisinopril 2.5 Mg Tab 2.5 Mg PO DAILY Prednisone 10 Mg Tab 10 Mg PO DIRECTED 40 mg daily for 2 d, then 30 mg daily for 3 d, then 20 mg daily for 3 d, then 10 mg daily Diflucan (Fluconazole) 200 Mg Tab 200 Mg PO DAILY Levofloxacin 750 Mg Tablet 750 Mg PO DAILY Sharpsafety Sharps Contai (Parenteral Therapy Supplies) 1 Mis Mis Ea .XX DIRECTED Glucocom Test Strips (Blood Glucose Test Strips) 1 Effie Effie Ea .XX DIRECTED Lancets 1 Mis Mis Ea .XX DIRECTED Glucocom Blood Glucose Mo W/Device (Device) 1 Kit Kit Kit .XX DIRECTED [Acetamin-Codeine 120-12 Liq] 5 ML Elix 5 Ml PO Q4H PRN Glucotrol (Glipizide) 5 Mg Tab 5 Mg PO BID@08,17 Take 30 minutes before a meal Reported Aricept (Donepezil) 23 Mg Tab 10 Mg PO HS Do not split, crushed or chewed. Aspirin Low Dose (Aspirin) 81 Mg Chew 81 Mg CHEW DAILY Lyrica (Pregabalin) 200 Mg Cap 200 Mg PO TID Viagra (Sildenafil Citrate) 100 Mg Tab 100 Mg PO DAILY PRN Zenpep (Pancrelipase) 25,000-85,000-136,000 Units Cap 1 Cap PO TIDPC Topamax (Topiramate) 25 Mg Tab 25 Mg PO BID Temazepam 30 Mg Cap 30 Mg PO HS PRN Nexium (Esomeprazole DR) 40 Mg Capdr 40 Mg PO DAILY Movantik (Naloxegol) 25 Mg Tab 25 Mg PO DAILY Linzess (Linaclotide) 145 Mcg Cap 145 Mcg PO DAILY Lexapro (Escitalopram Oxalate) 10 Mg Tab 10 Mg PO DAILY Cymbalta DR (Duloxetine HCl) 60 Mg Capdr 60 Mg PO DAILY Carafate (Sucralfate) 1 Gm Tab 1 Gm PO QID On empty stomach Carbidopa-Levodopa 25-100 Mg Tab 1 Tab PO Q8HR Review of Systems Except as stated in HPI: all other systems reviewed are Neg General / Constitutional: No: Fever, Chills HENT: No: Headaches, Lightheadedness Cardiovascular: No: Chest Pain or Discomfort Respiratory: Positive: Cough, Shortness of Breath Gastrointestinal: No: Nausea, Vomiting, Abdominal Pain Musculoskeletal: Positive: Edema, No: Myalgias Skin: No Change in Pigmentation Neurologic: Positive: Weakness Physical Exam Narrative GENERAL: Awake and alert, mild respiratory distress. SKIN: Focused skin assessment warm/dry. No wounds or signs of infection. HEAD: Atraumatic. Normocephalic. EYES: Pupils equal and round. No scleral icterus. No injection or drainage. ENT: Mucous membranes pink and moist. NECK: Trachea midline. No JVD. CARDIOVASCULAR: Regular rate and rhythm. No murmur appreciated. RESPIRATORY: Tachypneic, crackles in both lungs. Breath sounds equal bilaterally. GASTROINTESTINAL: Abdomen soft, non-tender, nondistended. Hepatic and splenic margins not palpable. MUSCULOSKELETAL: No obvious deformities. No clubbing. No cyanosis. No edema. NEUROLOGICAL: Awake and alert. No obvious cranial nerve deficits. Motor grossly within normal limits. Normal speech. PSYCHIATRIC: Appropriate mood and affect; insight and judgment normal. Data Data Last Documented VS Vital Signs Date Time Temp Pulse Resp B/P (MAP) Pulse Ox O2 Delivery O2 Flow Rate FiO2 12/03/17 22:15 Non-Rebreather 12/03/17 22:00 92 50 12/03/17 20:01 12.00 12/03/17 19:18 97.8 95 18 Orders Orders Complete Blood Count With Diff (12/03/17 19:43) Comprehensive Metabolic Panel (12/03/17 19:43) B-Type Natriuretic Peptide (12/03/17 19:43) Act Partial Throm Time (Ptt) (12/03/17 19:43) Prothrombin Time / Inr (Pt) (12/03/17 19:43) Troponin I (12/03/17 19:43) Iv Access Insert/Monitor (12/03/17 19:43) Ecg Monitoring (12/03/17 19:43) Oximetry (12/03/17 19:43) Oxygen Administration (12/03/17 19:43) Chest, Single Ap (12/03/17 19:43) Ct Pulmonary Angiogram (12/03/17 19:43) Sodium Chloride 0.9% Flush (Ns Flush) (12/03/17 19:45) Albuterol-Ipratropium Neb (Duoneb Neb) (12/03/17 19:45) Lactic Acid (12/03/17 19:43) Resp Bipap / Cpap Non Invas Vt (12/03/17 ) Arterial Blood Gas (Abg) (12/03/17 ) Electrocardiogram (12/03/17 19:41) Cefepime Inj (Maxipime Inj) (12/03/17 21:00) Azithromycin Inj (Zithromax Inj) (12/03/17 21:00) Sodium Bicarbonate 8.4% Inj (Sodium Bica (12/03/17 21:30) Sodium Polysty Sulfate Liq (Kayexalate L (12/03/17 21:30) Dextrose 50% In Angelina (Syr) Inj (D50w (Syr (12/03/17 21:30) Insulin Human Regular Inj (Novolin R Inj (12/03/17 21:30) Sumatriptan Inj (Imitrex Inj) (12/03/17 22:00) Iodixanol 320 Inj (Rad Ct) (Visipaque 32 (12/03/17 18:48) Admit Order (Ed Use Only) (12/03/17 ) Labs Laboratory Tests Test 12/03/17 19:30 12/03/17 20:02 Blood Gas Puncture Site RT RADIAL Blood Gas Patient Temperature 98.6 Blood Gas HCO3 24 mmol/L Blood Gas Base Excess 1.0 mmol/L Blood Gas Oxygen Saturation 92 % Arterial Blood pH 7.49 Arterial Blood Partial Pressure CO2 32 mmHg Arterial Blood Partial Pressure O2 66 mmHG Arterial Blood Oxygen Content 18.3 Vol % Arterial Blood Carboxyhemoglobin 1.5 % Arterial Blood Methemoglobin 0.9 % Blood Gas Hemoglobin 14.2 G/DL Oxygen Delivery Device NIPPV Blood Gas Ventilator Setting 12PS 6 PEEP Blood Gas Inspired Oxygen 60 % White Blood Count 13.3 TH/MM3 Red Blood Count 5.00 MIL/MM3 Hemoglobin 15.3 GM/DL Hematocrit 46.3 % Mean Corpuscular Volume 92.6 FL Mean Corpuscular Hemoglobin 30.6 PG Mean Corpuscular Hemoglobin Concent 33.0 % Red Cell Distribution Width 16.0 % Platelet Count 135 TH/MM3 Mean Platelet Volume 9.1 FL Neutrophils (%) (Auto) 93.6 % Lymphocytes (%) (Auto) 4.7 % Monocytes (%) (Auto) 1.4 % Eosinophils (%) (Auto) 0.1 % Basophils (%) (Auto) 0.2 % Neutrophils # (Auto) 12.5 TH/MM3 Lymphocytes # (Auto) 0.6 TH/MM3 Monocytes # (Auto) 0.2 TH/MM3 Eosinophils # (Auto) 0.0 TH/MM3 Basophils # (Auto) 0.0 TH/MM3 CBC Comment AUTO DIFF Differential Total Cells Counted 100 Neutrophils % (Manual) 75 % Band Neutrophils % 20 % Lymphocytes % 3 % Monocytes % 2 % Neutrophils # (Manual) 12.6 TH/MM3 Differential Comment FINAL DIFF MANUAL Platelet Estimate LOW Platelet Morphology Comment ENLARGED Ovalocytes 1+ Prothrombin Time 10.3 SEC Prothromb Time International Ratio 1.0 RATIO Activated Partial Thromboplast Time 25.2 SEC Blood Urea Nitrogen 35 MG/DL Creatinine 1.80 MG/DL Random Glucose 232 MG/DL Total Protein 6.4 GM/DL Albumin 2.7 GM/DL Calcium Level 8.3 MG/DL Alkaline Phosphatase 77 U/L Aspartate Amino Transf (AST/SGOT) 44 U/L Alanine Aminotransferase (ALT/SGPT) 21 U/L Total Bilirubin 0.9 MG/DL Sodium Level 135 MEQ/L Potassium Level 6.1 MEQ/L Chloride Level 101 MEQ/L Carbon Dioxide Level 24.9 MEQ/L Anion Gap 9 MEQ/L Estimat Glomerular Filtration Rate 37 ML/MIN Lactic Acid Level 2.7 mmol/L Troponin I LESS THAN 0.02 NG/ML B-Type Natriuretic Peptide 43 PG/ML MDM Medical Decision Making Medical Screen Exam Complete: Yes Emergency Medical Condition: Yes Medical Record Reviewed: Yes Interpretation(s) ECG shows sinus rhythm, unchanged from previous. Differential Diagnosis COPD exacerbation versus ACS versus pneumonia Narrative Course Patient is a 77-year-old male who comes in complaining of shortness of breath. He is hypoxic on arrival. Even on a Ventimask, his oxygen saturation is only 89 %. IV established, labs sent. Patient started on BiPAP. Labs show an elevated white blood cell count as well as worsening kidney function. Chest x- ray shows worsening pneumonia. Patient complained of headache while on the BiPAP, he was given Imitrex, which he takes at home. Covered with cefepime and azithromycin. CTA of the chest performed shows no evidence of PE. Patient refused to keep the BiPAP on. He was told that he would likely be intubated if he could not wear the BiPAP, so he changed his mind. Admitted to the ICU for further management. Critical Care Narrative Aggregate critical care time was 40 minutes. Time to perform other separately billable procedures was not included in the critical care time. My time did not include minutes spent treating any other patients simultaneously or on activities that did not directly contribute to the patient's treatment. The services I provided to this patient were to treat and/or prevent clinically significant deterioration that could result in: Serious illness or I provided critical care services requiring my management, as noted below: Chart data review, documentation time, medication orders and management, vital sign assessments/reviewing monitor data, ordering and reviewing lab tests, ordering and interpreting/reviewing x-rays and diagnostic studies, care of the patient and discussion of the patient with the admitting physicians. Diagnosis Primary Impression: Acute on chronic renal insufficiency Additional Impressions: Respiratory insufficiency Pneumonia Qualified Codes: J18.9 - Pneumonia, unspecified organism Admitting Information Admitting Physician Requests: Admit Joslyn Borden MD Dec 03, 2017 23:28
--- NOTE | 2017-12-03 23:45 | HHI.HP ---
HPI Service Critical Care Medicine Primary Care Physician Non-Staff Admission Diagnosis Pneumonia, hypoxia, hyperkalemia Diagnosis: Travel History International Travel<30 Days: No Contact w/Intl Traveler <30 Da: No Traveled to Known Affected Are: No History of Present Illness 77-year-old gentleman with past medical history of of Monoclonal gammopathy, DGD , Hyperlipidemia, CVA, chronic pancreatitis GERD, was just discharged yesterday after he was treated for community-acquired pneumonia. He woke up today in the morning at home, didn't feel well, and again was feeling short of breath. He denies a chest pain nausea vomiting or any other associated symptoms. He returned back to emergency department where his chest x-ray shows worsening bilateral infiltrates, his O2 sat on room air was found to be in 80s. He was placed on the BiPAP with improvement of symptoms and is now admitted to intensive care unit. Review of Systems ROS Unable To obtain patient is on the facemask BiPAP Past Family Social History Allergies: Coded Allergies: No Known Allergies (Verified Allergy, Unknown, 11/14/17) Past Medical History Depression. Gastroesophageal reflux disease. Memory deficit. Migraine headaches. Hyperlipidemia. Erectile dysfunction. Allergic rhinitis. History of cerebrovascular accident in 2009 with very, very minimal left lower extremity weakness. History of hypertension history of chronic rash. History of osteomyelitis in 1965 requiring left lower leg surgery. Chronic LBP Past Surgical History Lateral knee surgery Back fusion surgery Carotid artery surgery Nerve stimulator Reported Medications Reported Meds & Active Scripts Active Acetylcysteine Liq/Neb (Acetylcysteine) 200 mg/ml Soln 2 Ml NEB QID Duoneb (Ipratropium-Albuterol Neb) 0.5-2.5 Mg/3 Ml Neb 1 Nebule INH Q4HR NEB Miralax Powder (Polyethylene Glycol 3350 Powder) 17 Gm Powd 17 Gm PO DAILY Mix and dissolve one measuring cap-ful (17 grams) in water or juice. Lisinopril 2.5 Mg Tab 2.5 Mg PO DAILY Prednisone 10 Mg Tab 10 Mg PO DIRECTED 40 mg daily for 2 d, then 30 mg daily for 3 d, then 20 mg daily for 3 d, then 10 mg daily Diflucan (Fluconazole) 200 Mg Tab 200 Mg PO DAILY Levofloxacin 750 Mg Tablet 750 Mg PO DAILY Sharpsafety Sharps Contai (Parenteral Therapy Supplies) 1 Mis Mis Ea .XX DIRECTED Glucocom Test Strips (Blood Glucose Test Strips) 1 Effie Effie Ea .XX DIRECTED Lancets 1 Mis Mis Ea .XX DIRECTED Glucocom Blood Glucose Mo W/Device (Device) 1 Kit Kit Kit .XX DIRECTED [Acetamin-Codeine 120-12 Liq] 5 ML Elix 5 Ml PO Q4H PRN Glucotrol (Glipizide) 5 Mg Tab 5 Mg PO BID@ Take 30 minutes before a meal Reported Aricept (Donepezil) 23 Mg Tab 10 Mg PO HS Do not split, crushed or chewed. Aspirin Low Dose (Aspirin) 81 Mg Chew 81 Mg CHEW DAILY Lyrica (Pregabalin) 200 Mg Cap 200 Mg PO TID Viagra (Sildenafil Citrate) 100 Mg Tab 100 Mg PO DAILY PRN Zenpep (Pancrelipase) 25,000-85,000-136,000 Units Cap 1 Cap PO TIDPC Topamax (Topiramate) 25 Mg Tab 25 Mg PO BID Temazepam 30 Mg Cap 30 Mg PO HS PRN Nexium (Esomeprazole DR) 40 Mg Capdr 40 Mg PO DAILY Movantik (Naloxegol) 25 Mg Tab 25 Mg PO DAILY Linzess (Linaclotide) 145 Mcg Cap 145 Mcg PO DAILY Lexapro (Escitalopram Oxalate) 10 Mg Tab 10 Mg PO DAILY Cymbalta DR (Duloxetine HCl) 60 Mg Capdr 60 Mg PO DAILY Carafate (Sucralfate) 1 Gm Tab 1 Gm PO QID On empty stomach Carbidopa-Levodopa 25-100 Mg Tab 1 Tab PO Q8HR Active Ordered Medications Current Medications Medications (Trade) Dose Ordered Sig/Nilsa Route PRN Reason Start Time Stop Time Status Last Admin Dose Admin Aspirin (Aspirin Chew) 81 mg DAILY CHEW 12/04/17 09:00 Carbidopa/Levodopa (Sinemet 25-100 Mg) 1 tab Q8HR PO 12/04/17 06:00 Donepezil HCl (Aricept) 10 mg HS PO 12/04/17 21:00 Duloxetine HCl (Cymbalta Dr) 60 mg DAILY PO 12/04/17 09:00 Escitalopram Oxalate (Lexapro) 10 mg DAILY PO 12/04/17 09:00 Fluconazole (Diflucan) 200 mg DAILY PO 12/04/17 09:00 Glipizide (Glucotrol) 5 mg BID@08,17 PO 12/04/17 08:00 Levofloxacin (Levaquin) 750 mg DAILY PO 12/04/17 09:00 Prednisone (Deltasone) 10 mg DAILY PO 12/04/17 09:00 Pregabalin (Lyrica) 200 mg TID PO 12/04/17 09:00 Temazepam (Restoril) 30 mg HS PRN PO INSOMNIA 12/03/17 23:45 Topiramate (Topamax) 25 mg BID PO 12/04/17 09:00 Patient Own Medication PT OWN MED: LINZ... DAILY PO 12/04/17 09:00 Patient Own Medication PT OWN MED: MOVAN... DAILY PO 12/04/17 09:00 Amylase/Lipase/ Protease (Creon 24-76-120) 1 cap TIDPC PO 12/04/17 09:30 Sodium Chloride 1,000 ml @ 124 mls/hr Q8H4M IV 12/03/17 23:48 Sodium Chloride (NS Flush) 2 ml UNSCH PRN IV FLUSH FLUSH AFTER USING IV ACCESS 12/04/17 00:00 Sodium Chloride (NS Flush) 2 ml BID IV FLUSH 12/04/17 09:00 Acetaminophen (Tylenol) 650 mg Q6H PRN PO PAIN 1-10 AND/OR FEVER >101F 12/04/17 00:00 Famotidine (Pepcid Inj) 20 mg Q12HR IV PUSH 12/04/17 09:00 Ondansetron HCl (Zofran Inj) 4 mg Q6H PRN IV PUSH NAUSEA OR VOMITING 12/04/17 00:00 Albuterol/ Ipratropium (Duoneb Neb) 1 ampule Q4HR NEB INH 12/04/17 00:00 12/04/17 00:21 Albuterol/ Ipratropium (Duoneb Neb) 1 ampule Q2HR NEB PRN INH WHEEZING 12/04/17 00:00 Heparin Sodium (Porcine) (Heparin Inj) 5,000 units Q8H SQ 12/04/17 00:00 Miscellaneous Information 1 Q361D XX 12/04/17 00:00 Chlorhexidine Gluconate (Chlorhexidine 2% Cloth) 3 pack Taper DAILY@04 TOP 12/04/17 04:00 11/30/18 03:59 Chlorhexidine Gluconate (Chlorhexidine 2% Cloth) 3 pack UNSCH PRN TOP HYGIENIC CARE 12/04/17 00:00 Senna/Docusate Sodium (Mili-Colace) 1 tab BID PO 12/04/17 09:00 Magnesium Hydroxide (Milk Of Magnesia Liq) 30 ml Q12H PRN PO Mild constipation 12/04/17 00:00 Sennosides (Senokot) 17.2 mg Q12H PRN PO Moderate constipation 12/04/17 00:00 Bisacodyl (Dulcolax Supp) 10 mg DAILY PRN RECTAL SEVERE CONSITIPATION/ IF NPO 12/04/17 00:00 Lactulose (Lactulose Liq) 30 ml DAILY PRN PO SEVERE CONSITIPATION/ IF PO 12/04/17 00:00 Cefepime HCl 2000 mg/Sodium Chloride 100 ml @ 200 mls/hr Q8H IV 12/04/17 05:00 Azithromycin 500 mg/Sodium Chloride 250 ml @ 250 mls/hr Q24H IV 12/05/17 22:00 Pharmacy Profile Note 0 ml @ 0 mls/hr UNSCH OTHER 12/04/17 00:00 Vancomycin HCl 2000 mg/Sodium Chloride 520 ml @ 250 mls/hr DAILY@0200 IV 12/04/17 02:00 12/04/17 05:00 Family History Brother aids drug use Fatherat 89 ya of COPD smoker Mother at 92 ya of [place] Social History Tobacco cigars No illicit drug use or alcohol use Physical Exam Vital Signs Vital Signs Date Time Temp Pulse Resp B/P (MAP) Pulse Ox O2 Delivery O2 Flow Rate FiO2 12/03/17 22:15 Non-Rebreather 12/03/17 22:00 92 Venturi Mask 50 12/03/17 20:01 92 BiPAP 12.00 40 12/03/17 19:58 92 BiPAP 12.00 40 12/03/17 19:55 95 60 12/03/17 19:18 97.8 95 18 107/61 (76) 90 12/03/17 19:09 98.7 89 16 100/57 (71) 85 Room Air Physical Exam GENERAL: Elderly gentleman in moderate respiratory distress on facemask BiPAP SKIN: Warm and dry. HEAD: Normocephalic. EYES: No scleral icterus. No injection or drainage. NECK: Supple, trachea midline. No JVD or lymphadenopathy. CARDIOVASCULAR: Regular rate and rhythm without murmurs, gallops, or rubs. RESPIRATORY: Breath sounds equal bilaterally. No accessory muscle use. GASTROINTESTINAL: Abdomen soft, non-tender, nondistended. MUSCULOSKELETAL: No cyanosis, or edema. BACK: Nontender without obvious deformity. NEURO EXAM: Mental Status: The patient is alert on facemask BiPAP Laboratory Laboratory Tests Test 12/03/17 19:30 12/03/17 20:02 Blood Gas Puncture Site RT RADIAL Blood Gas Patient Temperature 98.6 Blood Gas HCO3 24 Blood Gas Base Excess 1.0 Blood Gas Oxygen Saturation 92 Arterial Blood pH 7.49 Arterial Blood Partial Pressure CO2 32 Arterial Blood Partial Pressure O2 66 Arterial Blood Oxygen Content 18.3 Arterial Blood Carboxyhemoglobin 1.5 Arterial Blood Methemoglobin 0.9 Blood Gas Hemoglobin 14.2 Oxygen Delivery Device NIPPV Blood Gas Ventilator Setting 12PS 6 PEEP Blood Gas Inspired Oxygen 60 White Blood Count 13.3 Red Blood Count 5.00 Hemoglobin 15.3 Hematocrit 46.3 Mean Corpuscular Volume 92.6 Mean Corpuscular Hemoglobin 30.6 Mean Corpuscular Hemoglobin Concent 33.0 Red Cell Distribution Width 16.0 Platelet Count 135 Mean Platelet Volume 9.1 Neutrophils (%) (Auto) 93.6 Lymphocytes (%) (Auto) 4.7 Monocytes (%) (Auto) 1.4 Eosinophils (%) (Auto) 0.1 Basophils (%) (Auto) 0.2 Neutrophils # (Auto) 12.5 Lymphocytes # (Auto) 0.6 Monocytes # (Auto) 0.2 Eosinophils # (Auto) 0.0 Basophils # (Auto) 0.0 CBC Comment AUTO DIFF Differential Total Cells Counted 100 Neutrophils % (Manual) 75 Band Neutrophils % 20 Lymphocytes % 3 Monocytes % 2 Neutrophils # (Manual) 12.6 Differential Comment FINAL DIFF MANUAL Platelet Estimate LOW Platelet Morphology Comment ENLARGED Ovalocytes 1+ Prothrombin Time 10.3 Prothromb Time International Ratio 1.0 Activated Partial Thromboplast Time 25.2 Blood Urea Nitrogen 35 Creatinine 1.80 Random Glucose 232 Total Protein 6.4 Albumin 2.7 Calcium Level 8.3 Alkaline Phosphatase 77 Aspartate Amino Transf (AST/SGOT) 44 Alanine Aminotransferase (ALT/SGPT) 21 Total Bilirubin 0.9 Sodium Level 135 Potassium Level 6.1 Chloride Level 101 Carbon Dioxide Level 24.9 Anion Gap 9 Estimat Glomerular Filtration Rate 37 Lactic Acid Level 2.7 Troponin I LESS THAN 0.02 B-Type Natriuretic Peptide 43 Result Diagram: 12/03/17200112/03/172001 Imaging Last 24 hours Impressions Chest X-Ray 12/03/171942 Signed Impressions: Service Date/Time: Sunday, December 03, 2017 20:08 - CONCLUSION: Modest worsening left base consolidation. Mild atelectasis developing right base. Kwadwo Quinteros MD CT Angiography 12/03/171942 Signed Impressions: Service Date/Time: Sunday, December 03, 2017 22:54 - CONCLUSION: 1. Somewhat limited exam of minimal contrast in the pulmonary artery. No large central pulmonary embolus, however. 2. However, oblique patient's symptoms are probably related to worsening pneumonic infiltrates. New interstitial process posteriorly in the right upper lobe with areas of consolidation in both lung bases, left worse than right. MD Shadi Wills VTE Risk Assessment Caprini VTE Risk Assessment: Mod/High Risk (score >= 2) Caprini Risk Assessment Model Point Value = 1 Point Value = 2 Point Value = 3 Point Value = 5 Age 41-60 Minor surgery BMI > 25 kg/m2 Swollen legs Varicose veins or History of unexplained or recurrent spontaneous Oral contraceptives or hormone replacement Sepsis (< 1 month) Serious lung disease, including pneumonia (< 1 month) Abnormal pulmonary function Acute myocardial infarction Congestive heart failure (< 1 month) History of inflammatory bowel disease Medical patient at bed rest Age 61-74 Arthroscopic surgery Major open surgery (> 45 min) Laparoscopic surgery (> 45 min) Malignancy Confined to bed (> 72 hours) Immobilizing plaster cast Central venous access Age >= 75 History of VTE Family history of VTE Factor V Leiden Prothrombin [id number] Lupus anticoagulant Anticardiolipin antibodies Elevated serum homocysteine Heparin-induced thrombocytopenia Other congenital or acquired thrombophilia Stroke (< 1 month) Elective arthroplasty Hip, pelvis, or leg fracture Acute spinal cord injury (< 1 month) Prophylaxis Regimen Total Risk Factor Score Risk Level Prophylaxis Regimen 0-1 Low Early ambulation 2 Moderate Order ONE of the following: *Sequential Compression Device (SCD) *Heparin 5000 units SQ BID 3-4 Higher Order ONE of the following medications: *Heparin 5000 units SQ TID *Enoxaparin/Lovenox 40 mg SQ daily (WT < 150 kg, CrCl > 30 mL/min) *Enoxaparin/Lovenox 30 mg SQ daily (WT < 150 kg, CrCl > 10-29 mL/min) *Enoxaparin/Lovenox 30 mg SQ BID (WT < 150 kg, CrCl > 30 mL/min) AND/OR *Sequential Compression Device (SCD) 5 or more Highest Order ONE of the following medications: *Heparin 5000 units SQ TID (Preferred with Epidurals) *Enoxaparin/Lovenox 40 mg SQ daily (WT < 150 kg, CrCl > 30 mL/min) *Enoxaparin/Lovenox 30 mg SQ daily (WT < 150 kg, CrCl > 10-29 mL/min) *Enoxaparin/Lovenox 30 mg SQ BID (WT < 150 kg, CrCl > 30 mL/min) AND *Sequential Compression Device (SCD) Assessment and Plan Assessment and Plan Respiratory failure - Worsening pneumonia - Broad-spectrum antibiotics - Blood cultures sputum culture urine antigens - Infectious disease consultation Depression - Escitalopram - Cymbalta Gastroesophageal reflux disease - Pepcid Memory deficit - Aricept Migraine headaches - Topamax Hyperlipidemia - Resume home dose statins as an outpatient DVT GI prophylaxis - Teds SCDs - Subcutaneous heparin - Pepcid Critical Care: The total critical care time was 35 minutes. Time to perform other separately billable procedures was not included in the critical care time. Jean-Claude Perales MD Dec 03, 2017 11:45 pm
[2017-12-04] VITALS (17 sets, daily range): BP systolic 114–143; BP diastolic 57–85; PULSE 72–106; RESP 16–22; TEMP 97.7–98.8; O2SAT 88–100
[2017-12-04] MEDS ORDERED: MAGNESIUM HYDROXIDE SUSP 30 ML CUP PO PRN
[2017-12-04] MEDS ORDERED: BISACODYL 10 MG SUPP RECTAL PRN
[2017-12-04] MEDS ORDERED: ONDANSETRON HCL 4 MG/2 ML VIAL IV PUSH PRN
[2017-12-04] MEDS ORDERED: SENNOSIDES 8.6 MG TAB PO PRN
[2017-12-04] MEDS ORDERED: Vancomycin Consult Pharmacy 1 EA OTHER SCH
[2017-12-04] MEDS ORDERED: MISCELLANEOUS NURSING INFORMATION XX SCH
[2017-12-04] MEDS ORDERED: LACTULOSE SYRUP 20 GM/30 ML CUP PO PRN
[2017-12-04] MEDS ORDERED: CHLORHEXIDINE GLUCONATE 2 % 1 PACK (2 CLOTHS) TOP PRN
[2017-12-04] MEDS ORDERED: SODIUM CHLORIDE 0.9% FLUSH 10 ML FLUSH IV FLUSH PRN
[2017-12-04] MEDS: RESP: ALBUTEROL 2.5 MG/IPRATROPIUM 0.5 MG NEB (SCH) INH ×6 (00:21→19:55)
[2017-12-04] MEDS: SODIUM CHLOR 0.9% 1000 ML INJ 1,000 ML IV SCH ×2 (01:42→17:59)
[2017-12-04] MEDS: TEMAZEPAM 15 MG CAP PO PRN ×2 (01:47→19:58)
[2017-12-04] MEDS: HEPARIN SODIUM - SQ 10,000 UNITS/ML VIAL SQ SCH ×3 (01:47→16:50)
[2017-12-04] MEDS ORDERED: VANCOMYCIN INJ 2,000 MG in SODIUM CHLORID 0.9% 500 ML INJ 500 ML IV SCH (02:00)
[2017-12-04] MEDS: CHLORHEXIDINE GLUCONATE 2 % 1 PACK (2 CLOTHS) TOP SCH (03:47)
[2017-12-04] MEDS ORDERED: CEFEPIME INJ 2,000 MG in SODIUM CHLORIDE 0.9% INJ 100 ML IV SCH (05:00)
[2017-12-04] MEDS: CARBIDOPA/LEVODOPA 25 MG/100 MG TAB PO SCH ×3 (05:53→19:59)
--- NOTE | 2017-12-04 06:25 | RADRPT ---
EXAM DATE/TIME: 12/04/2017 03:22 [facility] COMPARISON: CHEST SINGLE AP, December 03, 2017, 20:08. INDICATIONS : Shortness of breath, possible pulmonary disease. MEDICAL HISTORY : Pneumonia SURGICAL HISTORY : Not provided ENCOUNTER: Subsequent ACUITY: 3 weeks PAIN SCORE: 0/10 LOCATION: Bilateral chest FINDINGS: A single view of the chest demonstrates the lungs to be symmetrically aerated with worsening consolid ation in the left base. There appears to be a developing infiltrate in the right upper lung as well. Heart size appears prominent. Mediastinal structures are distorted by leftward rotation, however. Deg enerative spurring of the dorsal spine. CONCLUSION: 1. Worsening consolidation in the left base with developing infiltrate in the right upper lung. 2. Cardiomegaly. Percy Ferraro MD on December 04, 2017 at 6:22 Board Certified Radiologist. This report was verified electronically.
[2017-12-04 07:14] LABS: AUTOMATED NEUTROPHIL # 8.2 TH/MM3 (1.8-7.7); BASOPHIL % 0.1 % (0.0-2.0); EOSINOPHIL % 0.1 % (0.0-4.0); HEMATOCRIT 38.1 % (39.0-51.0); HEMOGLOBIN 12.6 GM/DL (13.0-17.0); LYMPH % 16.7 % (9.0-44.0); LYMPHOCYTE # 1.9 TH/MM3 (1.0-4.8); MEAN CELL VOLUME 91.4 FL (80.0-100.0); MEAN CORPUSCULAR HEMOGLOBIN 30.1 PG (27.0-34.0); MEAN PLATELET VOLUME 8.8 FL (7.0-11.0); MONO % 11.4 % (0.0-8.0); MONOCYTE # 1.3 TH/MM3 (0-0.9); NEUT % 71.7 % (16.0-70.0); PLATELET COUNT 379 TH/MM3 (150-450); RED BLOOD COUNT 4.17 MIL/MM3 (4.50-5.90); RED CELL DISTRIBUTION WIDTH 14.5 % (11.6-17.2); WHITE BLOOD COUNT 11.4 TH/MM3 (4.0-11.0)
[2017-12-04 07:39] LABS: INTERNATIONAL NORMALIZED RATIO 1.3 RATIO
[2017-12-04 07:47] LABS: ALBUMIN 2.4 GM/DL (3.4-5.0); ALKALINE PHOSPHATASE 147 U/L (45-117); ALT (GPT) 30 U/L (12-78); AST (GOT) 16 U/L (15-37); BICARBONATE 31.5 MEQ/L (21.0-32.0); BLOOD UREA NITROGEN 33 MG/DL (7-18); CALCIUM 8.5 MG/DL (8.5-10.1); CHLORIDE 103 MEQ/L (98-107); CREATININE 1.24 MG/DL (0.60-1.30); GLOMERULAR FILTRATION RATE 57 ML/MIN (>89); GLUCOSE,RANDOM 100 MG/DL (74-106); MAGNESIUM 2.2 MG/DL (1.5-2.5); PHOSPHORUS 2.8 MG/DL (2.5-4.9); SODIUM (NA) 142 MEQ/L (136-145); TOTAL BILIRUBIN ADULT 0.7 MG/DL (0.2-1.0); TOTAL PROTEIN 5.1 GM/DL (6.4-8.2)
[2017-12-04] MEDS: PT OWN LINZESS 145 MCG PO SCH (09:00)
[2017-12-04] MEDS: MOVANTIK 25 MG PO SCH (09:00)
[2017-12-04] MEDS: FLUCONAZOLE 200 MG TAB PO SCH (09:18)
[2017-12-04] MEDS: predniSONE 10 MG TAB PO SCH (09:18)
[2017-12-04] MEDS: ESCITALOPRAM OXALATE 10 MG TAB PO SCH (09:18)
[2017-12-04] MEDS: PREGABALIN 100 MG CAP PO SCH ×3 (09:18→17:35)
[2017-12-04] MEDS: DULoxetine HCl DR 60 MG CAP PO SCH (09:18)
[2017-12-04] MEDS: glipiZIDE 5 MG TAB PO SCH ×2 (09:18→16:50)
[2017-12-04] MEDS: ASPIRIN 81 MG CHEW TAB CHEW SCH (09:19)
[2017-12-04] MEDS: LEVOFLOXACIN 750 MG TAB PO SCH (09:19)
[2017-12-04] MEDS: TOPIRAMATE 25 MG TAB PO SCH ×2 (09:19→19:58)
[2017-12-04] MEDS: DOCUSATE SODIUM 50 MG/SENNA 8.6 MG TAB PO SCH ×2 (09:19→19:59)
[2017-12-04] MEDS: FAMOTIDINE 20 MG/2 ML VIAL IV PUSH SCH ×2 (09:20→19:58)
[2017-12-04] MEDS: SODIUM CHLORIDE 0.9% FLUSH 10 ML FLUSH IV FLUSH SCH ×2 (09:21→19:57)
--- NOTE | 2017-12-04 11:44 | HHI.CCPN ---
Subjective Remarks/Hospital Course 77-year-old gentleman with past medical history of of Monoclonal gammopathy, DGD , Hyperlipidemia, CVA, chronic pancreatitis GERD, was just discharged yesterday after he was treated for community-acquired pneumonia. He woke up today in the morning at home, didn't feel well, and again was feeling short of breath. He denies a chest pain nausea vomiting or any other associated symptoms. He returned back to emergency department where his chest x-ray shows worsening bilateral infiltrates, his O2 sat on room air was found to be in 80s. He was placed on the BiPAP with improvement of symptoms and is now admitted to intensive care unit. Subjective : 12/04: Afebile. Patient continues on BIPAP, with improvement of respiratory function. FiO2 requirements decreased to 55% the patient continues on 08/25.- Tolerated off of BiPAP for breakfast without any dyspnea. IV fluids decreased significantly for gentle hydration 42 cc/hour. Objective Vital Signs Date Time Temp Pulse Resp B/P (MAP) Pulse Ox O2 Delivery O2 Flow Rate FiO2 12/04/17 09:51 91 Nasal Cannula 6.00 12/04/17 07:50 60 12/04/17 06:00 106 12/04/17 04:00 98.7 17 126/68 (87) Intake and Output 12/04/17 12/04/17 12/05/17 08:00 16:00 00:00 Intake Total 240 ml Output Total 600 ml Balance -360 ml Result Diagram: 12/04/17 0615 12/04/17 0612 Other Results Laboratory Tests Test 12/03/17 19:30 12/04/17 05:13 Blood Gas Puncture Site RT RADIAL RT RADIAL Blood Gas Patient Temperature 98.6 98.6 Blood Gas HCO3 24 mmol/L (22-26) 26 mmol/L (22-26) Blood Gas Base Excess 1.0 mmol/L (-2-2) 1.8 mmol/L (-2-2) Blood Gas Oxygen Saturation 92 % (90-100) 91 % (90-100) Arterial Blood pH 7.49 (7.380-7.420) 7.45 (7.380-7.420) Arterial Blood Partial Pressure CO2 32 mmHg (38-42) 37 mmHg (38-42) Arterial Blood Partial Pressure O2 66 mmHG (61-120) 69 mmHg (61-120) Arterial Blood Oxygen Content 18.3 Vol % (12.0-20.0) 16.1 Vol % (12.0-20.0) Arterial Blood Carboxyhemoglobin 1.5 % (0-4) 0.8 % (0-4) Arterial Blood Methemoglobin 0.9 % (0-2) 1.5 % (0-2) Blood Gas Hemoglobin 14.2 G/DL (12.0-16.0) 12.6 G/DL (12.0-16.0) Oxygen Delivery Device NIPPV BiPAP12/+6/ Blood Gas Ventilator Setting 12PS 6 PEEP Blood Gas Inspired Oxygen 60 % 70 % Imaging Last Impressions Chest X-Ray 12/04/17 0000 Signed Impressions: Service Date/Time: Monday, December 04, 2017 03:22 - CONCLUSION: 1. Worsening consolidation in the left base with developing infiltrate in the right upper lung. 2. Cardiomegaly. Percy Ferraro MD CT Angiography 12/03/171942 Signed Impressions: Service Date/Time: Sunday, December 03, 2017 22:54 - CONCLUSION: 1. Somewhat limited exam of minimal contrast in the pulmonary artery. No large central pulmonary embolus, however. 2. However, oblique patient's symptoms are probably related to worsening pneumonic infiltrates. New interstitial process posteriorly in the right upper lobe with areas of consolidation in both lung bases, left worse than right. Percy Ferraro MD Last 24 hours Impressions Chest X-Ray 12/03/171942 Signed Impressions: Service Date/Time: Sunday, December 03, 2017 20:08 - CONCLUSION: Modest worsening left base consolidation. Mild atelectasis developing right base. Kwadwo Quinteros MD CT Angiography 12/03/171942 Signed Impressions: Service Date/Time: Sunday, December 03, 2017 22:54 - CONCLUSION: 1. Somewhat limited exam of minimal contrast in the pulmonary artery. No large central pulmonary embolus, however. 2. However, oblique patient's symptoms are probably related to worsening pneumonic infiltrates. New interstitial process posteriorly in the right upper lobe with areas of consolidation in both lung bases, left worse than right. Percy Ferraro MD Objective Remarks GENERAL: Obese elderly gentleman currently on BiPAP, 2 saturation 95% SKIN: Warm and dry. HEAD: Normocephalic. EYES: No scleral icterus. No injection or drainage. NECK: Supple, trachea midline. No JVD or lymphadenopathy. CARDIOVASCULAR: Regular rate and rhythm without murmurs, gallops, or rubs. RESPIRATORY: Breath sounds equal bilaterally. No accessory muscle use. GASTROINTESTINAL: Abdomen soft, non-tender, nondistended. MUSCULOSKELETAL: No cyanosis, or edema. BACK: Nontender without obvious deformity. NEURO EXAM: Mental Status: GCS 15 .The patient is alert on facemask BiPAP. Moves extremities 4 A/P Assessment and Plan Respiratory failure - Worsening pneumonia - Broad-spectrum antibiotics - Obtain Blood cultures sputum culture urine antigens - Infectious disease following-Dr. Hodgson - X-rays and ABGs when clinically indicated. Thank chest x-ray in a.m. Depression - Escitalopram - Cymbalta Gastroesophageal reflux disease - Pepcid Memory deficit - Aricept Migraine headaches - Topamax Hyperlipidemia - Resume home dose statins as an outpatient DVT GI prophylaxis - Teds SCDs - Subcutaneous heparin - Pepcid Critical Care: Level 3 Discussed with DIRECTOR OF OUTPATIENT SERVICES at bedside Physician Annabelle Bennett MD Dec 04, 2017 11:44
--- NOTE | 2017-12-04 12:28 | MB ---
cc: Mack Hodgson MD DATE OF CONSULT: 12/04/2017 REQUESTING PHYSICIAN: Dr. Perales. REASON FOR VISIT: Recurrent pneumonia. HISTORY OF PRESENT ILLNESS: This is a 77-year-old white male who was recently discharged from the hospital after treatment for pneumonia. The patient was evaluated between 11/14 and 12/02, was discharged after treatment for pneumonia. Cultures obtained during last admission were all negative. The patient went home and states that he was feeling very weak and had difficulty ambulating and shortness of breath and also had no appetite. He presented to the emergency department for evaluation and had to be put on BiPAP. Chest x-ray was performed and it showed worsening infiltrates. Prior to being put on BiPAP his oxygen saturation was decreased in the 80s on room air. The patient is currently on oxygen via nasal cannula at 6 liters. He is very somnolent. He also tells me that while at home, he was disoriented. I am unable to get much history from him because he is very somnolent at this time. He denies chest pain. His white count is elevated at 13.3. He is afebrile. During the last hospitalization, the patient was afebrile. He reportedly now is bringing up yellow sputum. During the hospitalization prior he was bringing of white sputum occasionally and about a week before discharge he was not producing sputum. The patient underwent bronchoscopy on 2 occasions during the last hospitalization and cultures were negative. There were thick, tenacious secretions suctioned from the tracheal tree. The only culture which came back from the bronchoscopy on 11/23/2017 showed Elizabeth albicans. He received treatment with fluconazole and was discharged home on fluconazole and Levaquin. Additional information is obtained from the medical record. PAST MEDICAL HISTORY: Hypertension, gastroesophageal reflux disease, hyperlipidemia, allergic rhinitis, history of migraine headaches, vasculitis, CVA in 2010, chronic low back pain, spinal stimulator, carotid artery surgery, bilateral knee surgery, osteomyelitis of the left lower extremity in 1964, back fusion. ALLERGIES: NO KNOWN DRUG ALLERGIES. MEDICATIONS: 1. Azithromycin. 2. Cefepime. 3. Aricept. 4. Aspirin. 5. Cymbalta. 6. Lexapro. 7. Fluconazole. 8. Levaquin. 9. Prednisone. 10. Lyrica. 11. Topamax. 12. Mili-Colace. 13. Glucotrol. 14. Sinemet. SOCIAL HISTORY: The patient is . The patient smokes a cigar occasionally. Social alcohol use. No illicit drugs. FAMILY HISTORY: Noncontributory. REVIEW OF SYSTEMS: Unable to obtain since the patient is very somnolent. PHYSICAL EXAMINATION: GENERAL: Well-developed male who is in no acute distress, but is extremely somnolent. He is on oxygen via nasal cannula. VITAL SIGNS: Temperature 98.7, BP 115/56, heart rate 75, respirations 24. HEENT: The head is atraumatic. Extraocular movements are grossly intact, pupils reactive to light. No icterus. No conjunctival erythema. Nose: Nasal septum midline. Oropharynx: Moist mucosa. No lesions. No thrush. NECK: Supple without adenopathy. LUNGS: Coarse bilateral rhonchi. HEART: Irregular rate and rhythm. No audible murmur. No rubs or gallops. ABDOMEN: Obese, soft, decreased bowel sounds. No tenderness appreciated. RECTAL: Not performed. EXTREMITIES: No clubbing, cyanosis or edema. SKIN: No rash. NEUROLOGIC: No gross focal findings. PSYCHIATRIC: The patient is calm and cooperative. LABORATORY DATA: WBC 11.4, platelet count 379, hemoglobin 12.6. Differential on yesterday's CBC showed 20% bands and WBC was 13.3. Creatinine 1.24. Estimated GFR 57. Sodium 142. LFTs normal except for elevated alkaline phosphatase of 147. Estimated GFR on 12/03/2017 was 37. Chest x-ray shows worsening consolidation in the left base and also developed an infiltrate in the right upper lung. IMPRESSION: 1. Pneumonia and a patient who was recently hospitalized. 2. Hypoxemia requiring BiPAP. 3. Leukocytosis. 4. Chronic kidney disease. RECOMMENDATIONS: 1. Continue broad spectrum antibiotic treatment. 2. Continue cefepime. 3. Continue azithromycin. 4. Continue Levaquin. 5. Continue fluconazole. 6. Obtain sputum for culture for both fungus and bacteria. 7. Monitor white blood cell count. 8. Follow clinical status and culture results. Thank you for this consultation. I will follow the patient's progress and will make further recommendations on followup. Mack Hodgson MD FFD/SB , 11:24 AM , 12:27 PM
[2017-12-04] MEDS: LIPASE/PROTEASE/AMYLASE (24,000/76,000/120,000) CAP PO SCH ×3 (13:58→17:35)
[2017-12-04] MEDS ORDERED: ACETAMINOPHEN 1000 MG/100 ML 100 ML IV ONE (15:30)
[2017-12-04] MEDS: CEFEPIME INJ 2,000 MG in SODIUM CHLORIDE 0.9% INJ 100 ML IV SCH (16:50)
--- NOTE | 2017-12-04 17:42 | EKG ---
Date Performed: 12/03/2017 Time Performed: 19:41:18 PTAGE: 77 years EKG: Sinus rhythm with PACs Left axis deviation Nonspecific T-wave change Since previous tracing, no significant lebron e noted ABNORMAL ECG PREVIOUS TRACING : 11/25/2017 15.04 DOCTOR: Tc Ledezma Interpretating Date/Time 12/04/2017 17:40:31
[2017-12-04] MEDS: ACETAMINOPHEN 325 MG TAB PO PRN (19:58)
[2017-12-04] MEDS: DONEPEZIL HCL 5 MG TAB PO SCH (19:59)
[2017-12-05] VITALS (14 sets, daily range): BP systolic 87–158; BP diastolic 67–100; PULSE 65–128; RESP 15–27; TEMP 97.3–98.2; O2SAT 88–100
[2017-12-05] MEDS: RESP: ALBUTEROL 2.5 MG/IPRATROPIUM 0.5 MG NEB (SCH) INH ×6 (00:12→20:39)
[2017-12-05] MEDS: SODIUM CHLOR 0.9% 1000 ML INJ 1,000 ML IV SCH (00:20)
[2017-12-05] MEDS: HEPARIN SODIUM - SQ 10,000 UNITS/ML VIAL SQ SCH ×3 (00:20→14:46)
[2017-12-05] MEDS ORDERED: SUMAtriptan SUCCINATE 25 MG TAB PO ONE (03:15)
[2017-12-05] MEDS: CHLORHEXIDINE GLUCONATE 2 % 1 PACK (2 CLOTHS) TOP SCH (03:43)
[2017-12-05] MEDS: CEFEPIME INJ 2,000 MG in SODIUM CHLORIDE 0.9% INJ 100 ML IV SCH ×2 (03:50→18:12)
[2017-12-05] MEDS: ACETAMINOPHEN 325 MG TAB PO PRN (04:11)
[2017-12-05] MEDS ORDERED: SUMAtriptan SUCCINATE 25 MG TAB PO PRN (05:35)
--- NOTE | 2017-12-05 06:17 | RADRPT ---
EXAM DATE/TIME: 12/05/2017 04:23 [facility] COMPARISON: CHEST SINGLE AP, December 04, 2017, 3:22. INDICATIONS : Shortness of breath, possible pulmonary disease. MEDICAL HISTORY : Pneumonia SURGICAL HISTORY : None. ENCOUNTER: Subsequent ACUITY: 3 days PAIN SCORE: Non-responsive. LOCATION: Bilateral chest FINDINGS: A single view of the chest demonstrates improving aeration in the right upper lobe. Persistent left b asilar consolidation/effusion which also shows interval improvement CONCLUSION: Improving aeration in the right upper and left lower lobes Percy Ferraro MD on December 05, 2017 at 6:14 Board Certified Radiologist. This report was verified electronically.
[2017-12-05] MEDS: CARBIDOPA/LEVODOPA 25 MG/100 MG TAB PO SCH ×3 (06:19→21:07)
[2017-12-05 07:24] LABS: INTERNATIONAL NORMALIZED RATIO 1.1 RATIO; PROTHROMBIN TIME - PATIENT 11.4 SEC (9.8-11.6)
[2017-12-05 07:41] LABS: BICARBONATE 22.5 MEQ/L (21.0-32.0); CALCIUM 7.7 MG/DL (8.5-10.1); CREATININE 1.16 MG/DL (0.60-1.30)
[2017-12-05 07:42] LABS: RANDOM VANCOMYCIN 5.1 COMMENT
[2017-12-05] MEDS: LEVOFLOXACIN 750 MG TAB PO SCH (09:00)
[2017-12-05] MEDS: predniSONE 10 MG TAB PO SCH (09:00)
[2017-12-05] MEDS: DOCUSATE SODIUM 50 MG/SENNA 8.6 MG TAB PO SCH ×2 (09:00→21:07)
[2017-12-05] MEDS: PT OWN LINZESS 145 MCG PO SCH (09:00)
[2017-12-05] MEDS: TOPIRAMATE 25 MG TAB PO SCH ×2 (09:00→21:07)
[2017-12-05] MEDS: FLUCONAZOLE 200 MG TAB PO SCH (09:00)
[2017-12-05] MEDS: ASPIRIN 81 MG CHEW TAB CHEW SCH (09:00)
[2017-12-05] MEDS: MOVANTIK 25 MG PO SCH (09:00)
[2017-12-05] MEDS: ESCITALOPRAM OXALATE 10 MG TAB PO SCH (09:01)
[2017-12-05] MEDS: glipiZIDE 5 MG TAB PO SCH ×2 (09:01→18:11)
[2017-12-05] MEDS: DULoxetine HCl DR 60 MG CAP PO SCH (09:01)
[2017-12-05] MEDS: FAMOTIDINE 20 MG/2 ML VIAL IV PUSH SCH ×2 (09:01→21:08)
[2017-12-05] MEDS: LIPASE/PROTEASE/AMYLASE (24,000/76,000/120,000) CAP PO SCH ×3 (09:01→18:12)
[2017-12-05] MEDS: PREGABALIN 100 MG CAP PO SCH ×3 (09:01→18:12)
[2017-12-05 10:56] LABS: AUTOMATED NEUTROPHIL # 5.9 TH/MM3 (1.8-7.7); BASOPHIL % 0.2 % (0.0-2.0); EOSINOPHIL % 0.7 % (0.0-4.0); HEMATOCRIT 39.1 % (39.0-51.0); HEMOGLOBIN 13.2 GM/DL (13.0-17.0); LYMPH % 13.8 % (9.0-44.0); MEAN CELL VOLUME 91.3 FL (80.0-100.0); MEAN CORPUSCULAR HEMOGLOBIN 30.7 PG (27.0-34.0); MEAN CORPUSCULAR HGB CONC 33.6 % (32.0-36.0); MEAN PLATELET VOLUME 9.1 FL (7.0-11.0); MONO % 2.6 % (0.0-8.0); MONOCYTE # 0.2 TH/MM3 (0-0.9); NEUT % 82.7 % (16.0-70.0); PLATELET COUNT 86 TH/MM3 (150-450); RED BLOOD COUNT 4.28 MIL/MM3 (4.50-5.90); RED CELL DISTRIBUTION WIDTH 15.7 % (11.6-17.2); WHITE BLOOD COUNT 7.1 TH/MM3 (4.0-11.0)
[2017-12-05] MEDS ORDERED: VANCOMYCIN INJ 2,000 MG in SODIUM CHLORID 0.9% 500 ML INJ 500 ML IV ONE (11:00)
--- NOTE | 2017-12-05 12:31 | HHI.IDPN ---
Note Infectious Disease Note Patient is on BiPAP currently. He appears somnolent. Afebrile. White blood cell count is lower. Chest x-ray appears improved. Noted to be in atrial fibrillation. 77-year-old white male who was recently discharged from the hospital after treatment for pneumonia. The patient was evaluated between 11/14 and 12/02, was discharged after treatment for pneumonia. Cultures obtained during last admission were all negative. The patient went home and states that he was feeling very weak and had difficulty ambulating and shortness of breath and also had no appetite. He presented to the emergency department on 12/03 for evaluation and had to be put on BiPAP. Chest x-ray was performed and it showed worsening infiltrates. The patient underwent bronchoscopy on 2 occasions during the last hospitalization and cultures were negative. There were thick, tenacious secretions suctioned from the tracheal tree. The only culture which came back from the bronchoscopy on 11/23/2017 showed Elizabeth albicans. He received treatment with fluconazole and was discharged home on fluconazole and Levaquin. PAST MEDICAL HISTORY: Hypertension, gastroesophageal reflux disease, hyperlipidemia, allergic rhinitis, history of migraine headaches, vasculitis, CVA in 2009, chronic low back pain, spinal stimulator, carotid artery surgery, bilateral knee surgery, osteomyelitis of the left lower extremity in 1964, back fusion. ALLERGIES: NO KNOWN DRUG ALLERGIES. Current Medications Medications (Trade) Dose Ordered Sig/Nilsa Route PRN Reason Start Time Stop Time Status Last Admin Dose Admin Aspirin (Aspirin Chew) 81 mg DAILY CHEW 12/04/17 09:00 12/05/17 09:00 Carbidopa/Levodopa (Sinemet 25-100 Mg) 1 tab Q8HR PO 12/04/17 06:00 12/05/17 06:19 Donepezil HCl (Aricept) 10 mg HS PO 12/04/17 21:00 12/04/17 19:59 Duloxetine HCl (Cymbalta Dr) 60 mg DAILY PO 12/04/17 09:00 12/05/17 09:01 Escitalopram Oxalate (Lexapro) 10 mg DAILY PO 12/04/17 09:00 12/05/17 09:01 Fluconazole (Diflucan) 200 mg DAILY PO 12/04/17 09:00 12/05/17 09:00 Glipizide (Glucotrol) 5 mg BID@ PO 12/04/17 08:00 12/05/17 09:01 Levofloxacin (Levaquin) 750 mg DAILY PO 12/04/17 09:00 12/05/17 09:00 Prednisone (Deltasone) 10 mg DAILY PO 12/04/17 09:00 12/05/17 09:00 Pregabalin (Lyrica) 200 mg TID PO 12/04/17 09:00 12/05/17 09:01 Temazepam (Restoril) 30 mg HS PRN PO INSOMNIA 12/03/17 23:45 12/04/17 19:58 Topiramate (Topamax) 25 mg BID PO 12/04/17 09:00 12/05/17 09:00 Patient Own Medication PT OWN MED: LINZ... DAILY PO 12/04/17 09:00 Patient Own Medication PT OWN MED: MOVAN... DAILY PO 12/04/17 09:00 Amylase/Lipase/ Protease (Creon 24-76-120) 1 cap TIDPC PO 12/04/17 09:30 12/05/17 09:01 Sodium Chloride 1,000 ml @ 42 mls/hr [id number] IV 12/03/17 23:48 12/05/17 00:20 Sodium Chloride (NS Flush) 2 ml UNSCH PRN IV FLUSH FLUSH AFTER USING IV ACCESS 12/04/17 00:00 Sodium Chloride (NS Flush) 2 ml BID IV FLUSH 12/04/17 09:00 12/04/17 19:57 Acetaminophen (Tylenol) 650 mg Q6H PRN PO PAIN 1-10 AND/OR FEVER >101F 12/04/17 00:00 12/05/17 04:11 Famotidine (Pepcid Inj) 20 mg Q12HR IV PUSH 12/04/17 09:00 12/05/17 09:01 Ondansetron HCl (Zofran Inj) 4 mg Q6H PRN IV PUSH NAUSEA OR VOMITING 12/04/17 00:00 Albuterol/ Ipratropium (Duoneb Neb) 1 ampule Q4HR NEB INH 12/04/17 00:00 12/05/17 07:31 Albuterol/ Ipratropium (Duoneb Neb) 1 ampule Q2HR NEB PRN INH WHEEZING 12/04/17 00:00 Heparin Sodium (Porcine) (Heparin Inj) 5,000 units Q8H SQ 12/04/17 00:00 12/05/17 09:02 Miscellaneous Information 1 Q361D XX 12/04/17 00:00 12/04/17 00:00 Chlorhexidine Gluconate (Chlorhexidine 2% Cloth) 3 pack Taper DAILY@04 TOP 12/04/17 04:00 11/30/18 03:59 12/05/17 03:43 Chlorhexidine Gluconate (Chlorhexidine 2% Cloth) 3 pack UNSCH PRN TOP HYGIENIC CARE 12/04/17 00:00 Senna/Docusate Sodium (Mili-Colace) 1 tab BID PO 12/04/17 09:00 12/05/17 09:00 Magnesium Hydroxide (Milk Of Magnesia Liq) 30 ml Q12H PRN PO Mild constipation 12/04/17 00:00 Sennosides (Senokot) 17.2 mg Q12H PRN PO Moderate constipation 12/04/17 00:00 Bisacodyl (Dulcolax Supp) 10 mg DAILY PRN RECTAL SEVERE CONSITIPATION/ IF NPO 12/04/17 00:00 Lactulose (Lactulose Liq) 30 ml DAILY PRN PO SEVERE CONSITIPATION/ IF PO 12/04/17 00:00 Azithromycin 500 mg/Sodium Chloride 250 ml @ 250 mls/hr Q24H IV 12/05/17 22:00 Pharmacy Profile Note 0 ml @ 0 mls/hr UNSCH OTHER 12/04/17 00:00 Cefepime HCl 2000 mg/Sodium Chloride 100 ml @ 200 mls/hr Q12H IV 12/04/17 17:00 12/05/17 03:50 Vancomycin HCl 2000 mg/Sodium Chloride 520 ml @ 250 mls/hr ONCE ONCE IV 12/05/17 11:00 12/05/17 13:04 OBJECTIVE: Vital Signs Date Time Temp Pulse Resp B/P (MAP) Pulse Ox O2 Delivery O2 Flow Rate FiO2 12/05/17 10:00 128 12/05/17 08:00 97.7 82 27 130/69 (89) 92 12/05/17 08:00 82 12/05/17 07:32 93 Nasal Cannula 5.00 12/05/17 06:00 124 12/05/17 04:00 97.8 127 19 87/67 (74) 88 12/05/17 04:00 127 12/05/17 02:00 103 12/05/17 00:00 77 12/05/17 00:00 97.3 77 24 117/71 (86) 90 12/04/17 22:00 72 12/04/17 20:00 98 Nasal Cannula 6.00 12/04/17 20:00 73 12/04/17 20:00 97.7 73 22 143/65 (91) 98 12/04/17 18:35 18 12/04/17 18:00 87 12/04/17 17:22 21 12/04/17 16:00 78 12/04/17 16:00 98.1 80 20 123/68 (86) 90 12/04/17 14:00 80 Laboratory Tests Test 12/03/17 20:02 12/04/17 06:15 12/05/17 09:58 White Blood Count 13.3 TH/MM3 11.4 TH/MM3 7.1 TH/MM3 Red Blood Count 5.00 MIL/MM3 4.17 MIL/MM3 4.28 MIL/MM3 Hemoglobin 15.3 GM/DL 12.6 GM/DL 13.2 GM/DL Hematocrit 46.3 % 38.1 % 39.1 % Mean Corpuscular Volume 92.6 FL 91.4 FL 91.3 FL Mean Corpuscular Hemoglobin 30.6 PG 30.1 PG 30.7 PG Mean Corpuscular Hemoglobin Concent 33.0 % 33.0 % 33.6 % Red Cell Distribution Width 16.0 % 14.5 % 15.7 % Platelet Count 135 TH/MM3 379 TH/MM3 86 TH/MM3 Mean Platelet Volume 9.1 FL 8.8 FL 9.1 FL Neutrophils (%) (Auto) 93.6 % 71.7 % 82.7 % Lymphocytes (%) (Auto) 4.7 % 16.7 % 13.8 % Monocytes (%) (Auto) 1.4 % 11.4 % 2.6 % Eosinophils (%) (Auto) 0.1 % 0.1 % 0.7 % Basophils (%) (Auto) 0.2 % 0.1 % 0.2 % Neutrophils # (Auto) 12.5 TH/MM3 8.2 TH/MM3 5.9 TH/MM3 Lymphocytes # (Auto) 0.6 TH/MM3 1.9 TH/MM3 1.0 TH/MM3 Monocytes # (Auto) 0.2 TH/MM3 1.3 TH/MM3 0.2 TH/MM3 Eosinophils # (Auto) 0.0 TH/MM3 0.0 TH/MM3 0.0 TH/MM3 Basophils # (Auto) 0.0 TH/MM3 0.0 TH/MM3 0.0 TH/MM3 CBC Comment AUTO DIFF DIFF FINAL AUTO DIFF Differential Total Cells Counted 100 Neutrophils % (Manual) 75 % Band Neutrophils % 20 % Lymphocytes % 3 % Monocytes % 2 % Neutrophils # (Manual) 12.6 TH/MM3 Differential Comment FINAL DIFF MANUAL AUTO DIFF CONFIRMED Platelet Estimate LOW LOW Platelet Morphology Comment ENLARGED NORMAL Ovalocytes 1+ Laboratory Tests Test 12/03/17 20:02 12/04/17 06:12 12/05/17 05:59 Blood Urea Nitrogen 35 MG/DL 33 MG/DL 23 MG/DL Creatinine 1.80 MG/DL 1.24 MG/DL 1.16 MG/DL Random Glucose 232 MG/DL 100 MG/DL 156 MG/DL Total Protein 6.4 GM/DL 5.1 GM/DL Albumin 2.7 GM/DL 2.4 GM/DL Calcium Level 8.3 MG/DL 8.5 MG/DL 7.7 MG/DL Alkaline Phosphatase 77 U/L 147 U/L Aspartate Amino Transf (AST/SGOT) 44 U/L 16 U/L Alanine Aminotransferase (ALT/SGPT) 21 U/L 30 U/L Total Bilirubin 0.9 MG/DL 0.7 MG/DL Sodium Level 135 MEQ/L 142 MEQ/L 140 MEQ/L Potassium Level 6.1 MEQ/L 3.4 MEQ/L 3.8 MEQ/L Chloride Level 101 MEQ/L 103 MEQ/L 108 MEQ/L Carbon Dioxide Level 24.9 MEQ/L 31.5 MEQ/L 22.5 MEQ/L Anion Gap 9 MEQ/L 8 MEQ/L 10 MEQ/L Estimat Glomerular Filtration Rate 37 ML/MIN 57 ML/MIN 61 ML/MIN Lactic Acid Level 2.7 mmol/L Troponin I LESS THAN 0.02 NG/ML B-Type Natriuretic Peptide 43 PG/ML Phosphorus Level 2.8 MG/DL Magnesium Level 2.2 MG/DL Microbiology Date/Time Source Procedure Growth Status 12/04/17 06:12 Blood Peripheral Aerobic Blood Culture - Preliminary NO GROWTH IN 1 DAY Resulted 12/04/17 06:12 Blood Peripheral Anaerobic Blood Culture - Preliminary NO GROWTH IN 1 DAY Resulted 12/04/17 13:20 Sputum Expectorated Sputum Acid Fast Stain Pending Received 12/04/17 13:20 Sputum Expectorated Sputum Mycobacterial Culture Pending Received 12/04/17 13:20 Sputum Expectorated Sputum Fungal Smear Pending Received 12/04/17 13:20 Sputum Expectorated Sputum Fungal Culture Pending Received 12/04/17 13:20 Sputum Expectorated Sputum Gram Stain - Final Resulted 12/04/17 13:20 Sputum Expectorated Sputum Sputum Culture Pending Resulted IMAGING: Chest X-Ray 12/04/17 0000 Signed Impressions: Service Date/Time: Monday, December 04, 2017 03:22 - CONCLUSION: 1. Worsening consolidation in the left base with developing infiltrate in the right upper lung. 2. Cardiomegaly. Percy Ferraro MD CT Angiography 12/03/171942 Signed Impressions: Service Date/Time: Sunday, December 03, 2017 22:54 - CONCLUSION: 1. Somewhat limited exam of minimal contrast in the pulmonary artery. No large central pulmonary embolus, however. 2. However, oblique patient's symptoms are probably related to worsening pneumonic infiltrates. New interstitial process posteriorly in the right upper lobe with areas of consolidation in both lung bases, left worse than right. Percy Ferraro MD PHYSICAL EXAMINATION: GENERAL: Patient is on BiPAP. HEENT: The head is atraumatic. Extraocular movements are grossly intact, pupils reactive to light. No icterus. No conjunctival erythema. NECK: Supple without adenopathy. LUNGS: Decreased breath sounds bilateral. Little rhonchi at the bases. HEART: Irregular rate and rhythm. No audible murmur. No rubs or gallops. ABDOMEN: Obese, soft, decreased bowel sounds. No tenderness appreciated. EXTREMITIES: No clubbing, cyanosis or edema. SKIN: No rash. NEUROLOGIC: No gross focal findings. PSYCHIATRIC: Calm and cooperative. IMPRESSION: 1. Pneumonia. Previously failed antibiotic treatment Chest x-ray appears to be improving. 2. Hypoxemia requiring BiPAP. 3. Leukocytosis. WBC lower. 4. Chronic kidney disease. RECOMMENDATIONS: 1. Continue Levaquin. 2. Continue cefepime. 3. Continue azithromycin. 4. Continue fluconazole. 5. Monitor sputum culture for both fungus and bacteria. 6. Monitor white blood cell count. 7. Follow clinical status and culture results. Mack Hodgson MD Dec 05, 2017 12:31
[2017-12-05] MEDS: SODIUM CHLORIDE 0.9% FLUSH 10 ML FLUSH IV FLUSH SCH ×2 (13:46→21:08)
--- NOTE | 2017-12-05 13:49 | HHI.PR ---
Subjective Remarks 77-year-old gentleman with past medical history of of Monoclonal gammopathy, DGD , Hyperlipidemia, CVA, chronic pancreatitis GERD, was just discharged yesterday after he was treated for community-acquired pneumonia. He woke up today in the morning at home, didn't feel well, and again was feeling short of breath. He denies a chest pain nausea vomiting or any other associated symptoms. He returned back to emergency department where his chest x-ray shows worsening bilateral infiltrates, his O2 sat on room air was found to be in 80s. He was placed on the BiPAP with improvement of symptoms and is now admitted to intensive care unit. 12/04: Afebile. Patient continues on BIPAP, with improvement of respiratory function. FiO2 requirements decreased to 55% the patient continues on 08/25.- Tolerated off of BiPAP for breakfast without any dyspnea. IV fluids decreased significantly for gentle hydration 42 cc/hour. 12-05 TRANSFERRED TO [facility] TODAY STILL NEEDING BIPAP ON AND OFF POSITIVE COUGH AND CONGESTION DW RN AND PATIENT AND FAMILY GOING IN AND OUT OF AFIB CONSULT CARDIOLOGY Objective Vitals Vital Signs Date Time Temp Pulse Resp B/P (MAP) Pulse Ox O2 Delivery O2 Flow Rate FiO2 12/05/17 10:00 128 12/05/17 08:00 97.7 82 27 130/69 (89) 92 12/05/17 08:00 82 12/05/17 07:32 93 Nasal Cannula 5.00 12/05/17 06:00 124 12/05/17 04:00 97.8 127 19 87/67 (74) 88 12/05/17 04:00 127 12/05/17 02:00 103 12/05/17 00:00 77 12/05/17 00:00 97.3 77 24 117/71 (86) 90 12/04/17 22:00 72 12/04/17 20:00 98 Nasal Cannula 6.00 12/04/17 20:00 73 12/04/17 20:00 97.7 73 22 143/65 (91) 98 12/04/17 18:35 18 12/04/17 18:00 87 12/04/17 17:22 21 12/04/17 16:00 78 12/04/17 16:00 98.1 80 20 123/68 (86) 90 12/04/17 14:00 80 I/O 12/04/17 12/04/17 12/04/17 12/05/17 12/05/17 12/05/17 07:00 15:00 23:00 07:00 15:00 23:00 Intake Total 340 ml 1160 ml 760 ml Output Total 600 ml 725 ml 2200 ml Balance -260 ml 435 ml -1440 ml Intake Oral 240 ml 960 ml 240 ml IV Total 100 ml 200 ml 520 ml Output Urine Total 600 ml 725 ml 2200 ml # Voids 2 # Bowel Movements 0 1 0 Result Diagram: 12/05/17 0958 12/05/17 0559 Other Results Laboratory Tests Test 12/03/17 19:30 12/03/17 20:02 12/04/17 01:50 12/04/17 05:13 Blood Gas Puncture Site RT RADIAL RT RADIAL Blood Gas Patient Temperature 98.6 98.6 Blood Gas HCO3 24 mmol/L 26 mmol/L Blood Gas Base Excess 1.0 mmol/L 1.8 mmol/L Blood Gas Oxygen Saturation 92 % 91 % Arterial Blood pH 7.49 7.45 Arterial Blood Partial Pressure CO2 32 mmHg 37 mmHg Arterial Blood Partial Pressure O2 66 mmHG 69 mmHg Arterial Blood Oxygen Content 18.3 Vol % 16.1 Vol % Arterial Blood Carboxyhemoglobin 1.5 % 0.8 % Arterial Blood Methemoglobin 0.9 % 1.5 % Blood Gas Hemoglobin 14.2 G/DL 12.6 G/DL Oxygen Delivery Device NIPPV BiPAP12/+6/ Blood Gas Ventilator Setting 12PS 6 PEEP Blood Gas Inspired Oxygen 60 % 70 % White Blood Count 13.3 TH/MM3 Red Blood Count 5.00 MIL/MM3 Hemoglobin 15.3 GM/DL Hematocrit 46.3 % Mean Corpuscular Volume 92.6 FL Mean Corpuscular Hemoglobin 30.6 PG Mean Corpuscular Hemoglobin Concent 33.0 % Red Cell Distribution Width 16.0 % Platelet Count 135 TH/MM3 Mean Platelet Volume 9.1 FL Neutrophils (%) (Auto) 93.6 % Lymphocytes (%) (Auto) 4.7 % Monocytes (%) (Auto) 1.4 % Eosinophils (%) (Auto) 0.1 % Basophils (%) (Auto) 0.2 % Neutrophils # (Auto) 12.5 TH/MM3 Lymphocytes # (Auto) 0.6 TH/MM3 Monocytes # (Auto) 0.2 TH/MM3 Eosinophils # (Auto) 0.0 TH/MM3 Basophils # (Auto) 0.0 TH/MM3 CBC Comment AUTO DIFF Differential Total Cells Counted 100 Neutrophils % (Manual) 75 % Band Neutrophils % 20 % Lymphocytes % 3 % Monocytes % 2 % Neutrophils # (Manual) 12.6 TH/MM3 Differential Comment FINAL DIFF MANUAL Platelet Estimate LOW Platelet Morphology Comment ENLARGED Ovalocytes 1+ Prothrombin Time 10.3 SEC Prothromb Time International Ratio 1.0 RATIO Activated Partial Thromboplast Time 25.2 SEC Blood Urea Nitrogen 35 MG/DL Creatinine 1.80 MG/DL Random Glucose 232 MG/DL Total Protein 6.4 GM/DL Albumin 2.7 GM/DL Calcium Level 8.3 MG/DL Alkaline Phosphatase 77 U/L Aspartate Amino Transf (AST/SGOT) 44 U/L Alanine Aminotransferase (ALT/SGPT) 21 U/L Total Bilirubin 0.9 MG/DL Sodium Level 135 MEQ/L Potassium Level 6.1 MEQ/L Chloride Level 101 MEQ/L Carbon Dioxide Level 24.9 MEQ/L Anion Gap 9 MEQ/L Estimat Glomerular Filtration Rate 37 ML/MIN Lactic Acid Level 2.7 mmol/L Troponin I LESS THAN 0.02 NG/ML B-Type Natriuretic Peptide 43 PG/ML Nasal Screen MRSA (PCR) MRSA NOT DETECTED Test 12/04/17 06:12 12/04/17 06:15 12/05/17 05:55 12/05/17 05:59 Prothrombin Time 13.0 SEC 11.4 SEC Prothromb Time International Ratio 1.3 RATIO 1.1 RATIO Activated Partial Thromboplast Time 67.6 SEC Blood Urea Nitrogen 33 MG/DL 23 MG/DL Creatinine 1.24 MG/DL 1.16 MG/DL Random Glucose 100 MG/DL 156 MG/DL Total Protein 5.1 GM/DL Albumin 2.4 GM/DL Calcium Level 8.5 MG/DL 7.7 MG/DL Phosphorus Level 2.8 MG/DL Magnesium Level 2.2 MG/DL Alkaline Phosphatase 147 U/L Aspartate Amino Transf (AST/SGOT) 16 U/L Alanine Aminotransferase (ALT/SGPT) 30 U/L Total Bilirubin 0.7 MG/DL Sodium Level 142 MEQ/L 140 MEQ/L Potassium Level 3.4 MEQ/L 3.8 MEQ/L Chloride Level 103 MEQ/L 108 MEQ/L Carbon Dioxide Level 31.5 MEQ/L 22.5 MEQ/L Anion Gap 8 MEQ/L 10 MEQ/L Estimat Glomerular Filtration Rate 57 ML/MIN 61 ML/MIN White Blood Count 11.4 TH/MM3 Red Blood Count 4.17 MIL/MM3 Hemoglobin 12.6 GM/DL Hematocrit 38.1 % Mean Corpuscular Volume 91.4 FL Mean Corpuscular Hemoglobin 30.1 PG Mean Corpuscular Hemoglobin Concent 33.0 % Red Cell Distribution Width 14.5 % Platelet Count 379 TH/MM3 Mean Platelet Volume 8.8 FL Neutrophils (%) (Auto) 71.7 % Lymphocytes (%) (Auto) 16.7 % Monocytes (%) (Auto) 11.4 % Eosinophils (%) (Auto) 0.1 % Basophils (%) (Auto) 0.1 % Neutrophils # (Auto) 8.2 TH/MM3 Lymphocytes # (Auto) 1.9 TH/MM3 Monocytes # (Auto) 1.3 TH/MM3 Eosinophils # (Auto) 0.0 TH/MM3 Basophils # (Auto) 0.0 TH/MM3 CBC Comment DIFF FINAL Differential Comment Blood Gas Puncture Site RT RADIAL Blood Gas Patient Temperature 98.6 Blood Gas HCO3 21 mmol/L Blood Gas Base Excess -2.7 mmol/L Blood Gas Oxygen Saturation 95 % Arterial Blood pH 7.43 Arterial Blood Partial Pressure CO2 33 mmHg Arterial Blood Partial Pressure O2 88 mmHg Arterial Blood Oxygen Content 17.6 Vol % Arterial Blood Carboxyhemoglobin 0.9 % Arterial Blood Methemoglobin 1.0 % Blood Gas Hemoglobin 13.1 G/DL Oxygen Delivery Device NASAL CANNULA Blood Gas Liter Flow 6 L/M Random Vancomycin Level 5.1 COMMENT Test 12/05/17 09:58 White Blood Count 7.1 TH/MM3 Red Blood Count 4.28 MIL/MM3 Hemoglobin 13.2 GM/DL Hematocrit 39.1 % Mean Corpuscular Volume 91.3 FL Mean Corpuscular Hemoglobin 30.7 PG Mean Corpuscular Hemoglobin Concent 33.6 % Red Cell Distribution Width 15.7 % Platelet Count 86 TH/MM3 Mean Platelet Volume 9.1 FL Neutrophils (%) (Auto) 82.7 % Lymphocytes (%) (Auto) 13.8 % Monocytes (%) (Auto) 2.6 % Eosinophils (%) (Auto) 0.7 % Basophils (%) (Auto) 0.2 % Neutrophils # (Auto) 5.9 TH/MM3 Lymphocytes # (Auto) 1.0 TH/MM3 Monocytes # (Auto) 0.2 TH/MM3 Eosinophils # (Auto) 0.0 TH/MM3 Basophils # (Auto) 0.0 TH/MM3 CBC Comment AUTO DIFF Differential Comment AUTO DIFF CONFIRMED Platelet Estimate LOW Platelet Morphology Comment NORMAL Imaging Last Impressions Chest X-Ray 12/05/17 0600 Signed Impressions: Service Date/Time: Tuesday, December 05, 2017 04:23 - CONCLUSION: Improving aeration in the right upper and left lower lobes Percy Ferraro MD CT Angiography 12/03/17 1943 Signed Impressions: Service Date/Time: Sunday, December 03, 2017 22:54 - CONCLUSION: 1. Somewhat limited exam of minimal contrast in the pulmonary artery. No large central pulmonary embolus, however. 2. However, oblique patient's symptoms are probably related to worsening pneumonic infiltrates. New interstitial process posteriorly in the right upper lobe with areas of consolidation in both lung bases, left worse than right. Percy Ferraro MD Objective Remarks GENERAL: Awake alert oriented 3 talkative and cooperative appears to be in some mild distress SKIN: Warm and dry. HEAD: Atraumatic. Normocephalic. EYES: Pupils equal and round. No scleral icterus. No injection or drainage. extraocular muscles intact ENT: No nasal bleeding or discharge. Mucous membranes pink and moist. Tongue is midline NECK: Trachea midline. No JVD. Supple CARDIOVASCULAR: IRRegular rate and rhythm. S1-S2 no S3 or S4 RESPIRATORY: No accessory muscle use. Breath sounds equal bilaterally. Coarse breath sounds bilaterally with scattered rhonchi and wheezes GASTROINTESTINAL: Abdomen soft, non-tender, nondistended. Hepatic and splenic margins not palpable. Obese MUSCULOSKELETAL: Extremities without clubbing, cyanosis, or edema. No obvious deformities. NEUROLOGICAL: Awake and alert. No obvious cranial nerve deficits. Motor grossly within normal limits. 4 out of 5 muscle strength in the arms and legs. Normal speech. PSYCHIATRIC: Appropriate mood and affect; insight and judgment normal. Procedures BIPAP Medications and IVs Current Medications Sodium Chloride (NS Flush) 2 ml UNSCH PRN IVF FLUSH AFTER USING IV ACCESS Last administered on 12/03/17at 22:38; Start 12/03/17 at 19:45; Stop 12/04/17 at 00:16 ; Status DC Albuterol/ Ipratropium (Duoneb Neb) 1 ampule ONCE ONCE INH Last administered on 12/03/17at 19:52; Start 12/03/17 at 19:45; Stop 12/03/17 at 19:46; Status DC Cefepime HCl 1000 mg/Sodium Chloride 100 ml @ 200 mls/hr ONCE ONCE IV Last administered on 12/03/17at 21:04; Start 12/03/17 at 21:00; Stop 12/03/17 at 21:29 ; Status DC Azithromycin 500 mg/Sodium Chloride 250 ml @ 250 mls/hr ONCE ONCE IV Last administered on 12/03/17at 23:50; Start 12/03/17 at 21:00; Stop 12/03/17 at 21:59 ; Status DC Sodium Bicarbonate (Sodium Bicarbonate 8.4% Inj) 50 meq ONCE ONCE IV PUSH Last administered on 12/03/17at 23:08; Start 12/03/17 at 21:30; Stop 12/03/17 at 21:31; Status DC Sodium Polystyrene Sulfonate (Kayexalate Liq) 15 gm ONCE ONCE PO Last administered on 12/03/17at 22:35; Start 12/03/17 at 21:30; Stop 12/03/17 at 21:31 ; Status DC Dextrose (D50w (Syr) Inj) 25 ml ONCE ONCE IV PUSH Last administered on at 22:34; Start 12/03/17 at 21:30; Stop 12/03/17 at 21:31; Status DC Insulin Human Regular (NovoLIN R INJ) 10 units ONCE ONCE IV PUSH Last administered on 12/03/17at 22:35; Start 12/03/17 at 21:30; Stop 12/03/17 at 21:31 ; Status DC Sumatriptan Succinate (Imitrex Inj) 6 mg ONCE ONCE SQ Last administered on at 22:37; Start 12/03/17 at 22:00; Stop 12/03/17 at 22:01; Status DC Iodixanol (VISIPAQUE 320 INJ (Rad CT)) 50 ml STK-MED ONCE IVCONTRAST Last administered on 12/03/17at 23:01; Start 12/03/17 at 18:48; Stop 12/03/17 at 22:59 ; Status DC Aspirin (Aspirin Chew) 81 mg DAILY CHEW Last administered on 12/05/17 09:00; Start 12/04/17 at 09:00 Carbidopa/Levodopa (Sinemet 25-100 Mg) 1 tab Q8HR PO Last administered on at 06:19; Start 12/04/17 at 06:00 Donepezil HCl (Aricept) 10 mg HS PO Last administered on 12/04/17at 19:59; Start 12/04/17 at 21:00 Duloxetine HCl (Cymbalta Dr) 60 mg DAILY PO Last administered on 12/05/17at 09: 01; Start 12/04/17 at 09:00 Escitalopram Oxalate (Lexapro) 10 mg DAILY PO Last administered on 12/05/17 09 :01; Start 12/04/17 at 09:00 Fluconazole (Diflucan) 200 mg DAILY PO Last administered on 12/05/17at 09:00; Start 12/04/17 at 09:00 Glipizide (Glucotrol) 5 mg BID@ PO Last administered on 12/05/17at 09:01; Start 12/04/17 at 08:00 Levofloxacin (Levaquin) 750 mg DAILY PO Last administered on 12/05/17at 09:00; Start 12/04/17 at 09:00 Prednisone (Deltasone) 10 mg DAILY PO Last administered on 12/05/17at 09:00; Start 12/04/17 at 09:00 Pregabalin (Lyrica) 200 mg TID PO Last administered on 12/05/17 09:01; Start 12/04/17 at 09:00 Temazepam (Restoril) 30 mg HS PRN PO INSOMNIA Last administered on 12/04/17at 19 :58; Start 12/03/17 at 23:45 Topiramate (Topamax) 25 mg BID PO Last administered on 12/05/17at 09:00; Start 12/04/17 at 09:00 Patient Own Medication PT OWN MED: LINZ... DAILY PO ; Start 12/04/17 at 09:00 Patient Own Medication PT OWN MED: MOVAN... DAILY PO ; Start 12/04/17 at 09:00 Amylase/Lipase/ Protease (Creon 24-76-120) 1 cap TIDPC PO Last administered on 12/05/17at 09:01; Start 12/04/17 at 09:30 Sodium Chloride 1,000 ml @ 42 mls/hr [id number] IV Last administered on at 00:20; Start 12/03/17 at 23:48 Sodium Chloride (NS Flush) 2 ml UNSCH PRN IV FLUSH FLUSH AFTER USING IV ACCESS ; Start 12/04/17 at 00:00 Sodium Chloride (NS Flush) 2 ml BID IV FLUSH Last administered on 12/04/17at 19: 57; Start 12/04/17 at 09:00 Acetaminophen (Tylenol) 650 mg Q6H PRN PO PAIN 1-10 AND/OR FEVER >101F Last administered on 12/05/17at 04:11; Start 12/04/17 at 00:00 Famotidine (Pepcid Inj) 20 mg Q12HR IV PUSH Last administered on 12/05/17at 09: 01; Start 12/04/17 at 09:00 Ondansetron HCl (Zofran Inj) 4 mg Q6H PRN IV PUSH NAUSEA OR VOMITING; Start at 00:00 Albuterol/ Ipratropium (Duoneb Neb) 1 ampule Q4HR NEB INH Last administered on 12/05/17at 07:31; Start 12/04/17 at 00:00 Albuterol/ Ipratropium (Duoneb Neb) 1 ampule Q2HR NEB PRN INH WHEEZING; Start 12/04/17 at 00:00 Heparin Sodium (Porcine) (Heparin Inj) 5,000 units Q8H SQ Last administered on 12/05/17at 09:02; Start 12/04/17 at 00:00 Miscellaneous Information 1 [id number] Last administered on 12/04/17at 00:00; Start 12/04/17 at 00:00 Chlorhexidine Gluconate (Chlorhexidine 2% Cloth) 3 pack Taper DAILY@04 TOP Last administered on 12/05/17at 03:43; Start 12/04/17 at 04:00; Stop 11/30/18 at 03:59 Chlorhexidine Gluconate (Chlorhexidine 2% Cloth) 3 pack UNSCH PRN TOP HYGIENIC CARE; Start 12/04/17 at 00:00 Senna/Docusate Sodium (Mili-Colace) 1 tab BID PO Last administered on 3/18/ 18at 09:00; Start 12/04/17 at 09:00 Magnesium Hydroxide (Milk Of Magnesia Liq) 30 ml Q12H PRN PO Mild constipation ; Start 12/04/17 at 00:00 Sennosides (Senokot) 17.2 mg Q12H PRN PO Moderate constipation; Start 12/04/17 at 00:00 Bisacodyl (Dulcolax Supp) 10 mg DAILY PRN RECTAL SEVERE CONSITIPATION/ IF NPO ; Start 12/04/17 at 00:00 Lactulose (Lactulose Liq) 30 ml DAILY PRN PO SEVERE CONSITIPATION/ IF PO; Start 12/04/17 at 00:00 Cefepime HCl 2000 mg/Sodium Chloride 100 ml @ 200 mls/hr Q8H IV Last administered on 12/04/17at 05:53; Start 12/04/17 at 05:00; Stop 12/04/17 at 07:31 ; Status DC Azithromycin 500 mg/Sodium Chloride 250 ml @ 250 mls/hr Q24H IV ; Start at 22:00 Pharmacy Profile Note 0 ml @ 0 mls/hr UNSCH OTHER ; Start 12/04/17 at 00:00 Vancomycin HCl 2000 mg/Sodium Chloride 520 ml @ 250 mls/hr DAILY@0200 IV Last administered on 12/04/17at 02:28; Start 12/04/17 at 02:00; Stop 12/04/17 at 05:00 ; Status DC Cefepime HCl 2000 mg/Sodium Chloride 100 ml @ 200 mls/hr Q12H IV Last administered on 12/05/17at 03:50; Start 12/04/17 at 17:00 Acetaminophen 100 ml @ 400 mls/hr NOW ONCE IV Last administered on 12/04/17at 16:52; Start 12/04/17 at 15:30; Stop 12/04/17 at 15:44; Status DC Sumatriptan Succinate (Imitrex) 25 mg ONCE ONCE PO Last administered on at 03:43; Start 12/05/17 at 03:15; Stop 12/05/17 at 03:16; Status DC Sumatriptan Succinate (Imitrex) 25 mg UNSCH X1 PRN PO FOR REPEAT DOSE IF NEEDED ; Start 12/05/17 at 05:35; Stop 12/05/17 at 07:00; Status DC Vancomycin HCl 2000 mg/Sodium Chloride 520 ml @ 250 mls/hr ONCE ONCE IV ; Start 12/05/17 at 11:00; Stop 12/05/17 at 13:04; Status DC A/P Assessment and Plan Respiratory failure - Worsening pneumonia - Broad-spectrum antibiotics - Obtain Blood cultures sputum culture urine antigens - Infectious disease following-Dr. oHdgson - X-rays and ABGs when clinically indicated. chest x-ray in a.m. Depression - Escitalopram - Cymbalta Gastroesophageal reflux disease - Pepcid Memory deficit - Aricept Migraine headaches - Topamax Hyperlipidemia - Resume home dose statins as an outpatient Atrial fibrillation consult cardiology Chronic pancreatitis continue on Creon Parkinson's continue on Sinemet PT and OT to eval and treat Incentive spirometer DVT GI prophylaxis - Teds SCDs - Subcutaneous heparin - Pepcid Discharge Planning Physical therapy and occupational therapy to eval and treat may need long-term rehab Yoshi Ambrocio DO Dec 05, 2017 13:49
[2017-12-05] MEDS: guaiFENesin E.R. 600 MG TAB PO SCH ×2 (14:00→21:07)
[2017-12-05] MEDS ORDERED: AMIODARONE INJ 150 MG in DEXTROSE 5% IN WATER 100ML INJ 100 ML IV ONE ×2 (15:48)
--- NOTE | 2017-12-05 16:33 | MB ---
cc: Gurpreet Teran MD DATE OF CONSULT: REASON FOR CONSULTATION: Atrial fibrillation. HISTORY OF PRESENT ILLNESS: The patient is a 77-year-old white male, followed in our office by Dr. Aysha Somers, with a history of monoclonal gammopathy, organic brain syndrome, hypertension, CVA, migraine headaches, steroid-induced diabetes, carotid disease, lower extremity vasculitis, status post recent very prolonged admission for pneumonia, who once again presented to the hospital with recurrent severe shortness of breath. On monitoring here in the hospital, he has been noted to have tachyarrhythmias, some of which are wide complex. The patient denies palpitations, dizziness, syncope, near syncope, chest pain, pedal edema, paroxysmal nocturnal dyspnea. Since coming into the hospital, his shortness of breath has not improved. He also has had a cough productive of yellowish sputum. PAST MEDICAL HISTORY: 1. Monoclonal gammopathy. 2. Organic brain syndrome. 3. Hypertension. 4. CVA, 2009. 5. Hyperlipidemia. 6. Frequent migraine headaches. 7. Resolved cardiomyopathy. The patient's ejection fraction was reportedly 40-45% by echo 12/12/2013. On echo last month, his ejection fraction was 65-70%. 8. Steroid-induced diabetes. 9. Status post recent prolonged admission for pneumonia. 10. Carotid disease, status post right carotid stenting several years ago. 11. Recently diagnosed lower extremity vasculitis treated with steroids. CURRENT CARDIAC MEDICATIONS: Aspirin 81 mg p.o. daily. ALLERGIES: NO KNOWN DRUG ALLERGIES. FAMILY HISTORY: Noncontributory. SOCIAL HISTORY: The patient denies any history of alcohol or tobacco abuse. REVIEW OF SYSTEMS: As in the history of present illness, otherwise negative or noncontributory. He also denies headache, abdominal pain, melena, dyspepsia, bright red blood per rectum. PHYSICAL EXAMINATION: VITAL SIGNS: His blood pressure 130/69 with a pulse of 79, respirations 20. GENERAL: He is a well-developed, well-nourished white male, in no acute distress. NECK: Jugular venous pressure is hard to assess. Carotid pulses are 2+ bilaterally and without bruits. CHEST: Reveals diffuse rhonchi and coarse breath sounds. CARDIAC: He has a regular rhythm and rate with frequent ectopy. No definite gallop or murmur is audible. ABDOMEN: He has a soft, obese, nontender abdomen. Bowel sounds are present. There is no definite hepatosplenomegaly. EXTREMITIES: Reveals no clubbing, cyanosis, or edema. DIAGNOSTIC DATA: EKG from 12/03/2017, shows sinus rhythm with frequent premature atrial complexes, left axis deviation, poor R-wave progression. EKG from 12/05/2017, shows possible ectopic atrial tachycardia. LABORATORY DATA: Includes WBC 7.1, hemoglobin 13.2, platelets 86. Potassium 3.8, BUN 23, creatinine 1.16. Troponin less than 0.02. Brain natriuretic peptide level 43. IMPRESSION: Paroxysmal tachyarrhythmias in this 77-year-old white male with a history of multiple medical problems, status post recent admission for pneumonia, history of cerebrovascular accident, steroid-induced diabetes, resolved cardiomyopathy, carotid disease, monoclonal gammopathy. His rhythm strips have been reviewed. He has episodic tachycardia, which is regular, possibly an ectopic atrial tachycardia. He also has salvos of wide complex tachycardia at the tail end of the narrow complex arrhythmias. The wide complex tachycardia could be aberrantly conducted supraventricular tachycardia. He has been asymptomatic with these arrhythmias. There is no evidence for acute coronary syndrome. Reportedly, his echo last month showed ejection fraction of 65-70%. His unstable respiratory status may be precipitating some of these tachyarrhythmias. RECOMMENDATIONS: 1. We will review his 2-D echo from last month. 2. Initiate intravenous amiodarone. MD SEBASTIAN Barahona/JR , 03:48 PM , 04:31 PM LITA
[2017-12-05] MEDS: AMIODARONE INJ 450 MG in SODIUM CHLOR 0.9% (EXCEL) INJ 241 ML IV PRN (19:13)
[2017-12-05] MEDS ORDERED: DEXTROSE 50% IN WATER 50 ML VIAL(D50) IV PUSH PRN (20:00)
[2017-12-05] MEDS ORDERED: GLUCAGON 1 MG/ML VIAL OTHER PRN (20:00)
[2017-12-05] MEDS: INSULIN ASPART SUPPLEMENTAL SCALE SQ SCH (21:00)
[2017-12-05] MEDS: DONEPEZIL HCL 5 MG TAB PO SCH (21:07)
[2017-12-05] MEDS ORDERED: AZITHROMYCIN INJ 500 MG in SODIUM CHLOR 0.9% 250 ML INJ 250 ML IV SCH (22:00)
[2017-12-06] VITALS (18 sets, daily range): BP systolic 134–185; BP diastolic 73–96; PULSE 57–75; RESP 12–22; TEMP 97.7–98.5; O2SAT 95–98
[2017-12-06] MEDS: SODIUM CHLOR 0.9% 1000 ML INJ 1,000 ML IV SCH (00:12)
[2017-12-06] MEDS: RESP: ALBUTEROL 2.5 MG/IPRATROPIUM 0.5 MG NEB (SCH) INH ×5 (00:29→20:19)
[2017-12-06] MEDS: HEPARIN SODIUM - SQ 10,000 UNITS/ML VIAL SQ SCH ×3 (00:33→16:00)
[2017-12-06] MEDS: CHLORHEXIDINE GLUCONATE 2 % 1 PACK (2 CLOTHS) TOP SCH (04:00)
[2017-12-06] MEDS: CARBIDOPA/LEVODOPA 25 MG/100 MG TAB PO SCH ×3 (05:13→20:47)
[2017-12-06] MEDS: AMIODARONE INJ 450 MG in SODIUM CHLOR 0.9% (EXCEL) INJ 241 ML IV PRN ×3 (05:13→20:45)
[2017-12-06] MEDS: CEFEPIME INJ 2,000 MG in SODIUM CHLORIDE 0.9% INJ 100 ML IV SCH ×2 (05:14→17:00)
[2017-12-06] MEDS: SUMAtriptan SUCCINATE 25 MG TAB PO PRN ×2 (05:27→19:30)
--- NOTE | 2017-12-06 07:52 | PD.CARD.PN ---
Subjective Subjective Remarks PT without complaints Objective Medications Current Medications Medications (Trade) Dose Ordered Sig/Nilsa Route Start Time Stop Time Status Last Admin (Aspirin Chew) 81 mg DAILY CHEW 12/04/17 09:00 12/05/17 09:00 (Sinemet 25-100 Mg) 1 tab Q8HR PO 12/04/17 06:00 12/06/17 05:13 (Aricept) 10 mg HS PO 12/04/17 21:00 12/05/17 21:07 (Cymbalta Dr) 60 mg DAILY PO 12/04/17 09:00 12/05/17 09:01 (Lexapro) 10 mg DAILY PO 12/04/17 09:00 12/05/17 09:01 (Diflucan) 200 mg DAILY PO 12/04/17 09:00 12/05/17 09:00 (Glucotrol) 5 mg BID@08,17 PO 12/04/17 08:00 12/05/17 18:11 (Levaquin) 750 mg DAILY PO 12/04/17 09:00 12/05/17 09:00 (Deltasone) 10 mg DAILY PO 12/04/17 09:00 12/05/17 09:00 (Lyrica) 200 mg TID PO 12/04/17 09:00 12/05/17 18:12 (Restoril) 30 mg HS PRN PO 12/03/17 23:45 12/04/17 19:58 (Topamax) 25 mg BID PO 12/04/17 09:00 12/05/17 21:07 Patient Own Medication PT OWN MED: LINZ... DAILY PO 12/04/17 09:00 Patient Own Medication PT OWN MED: MOVAN... DAILY PO 12/04/17 09:00 (Creon 24-76-120) 1 cap TIDPC PO 12/04/17 09:30 12/05/17 18:12 Sodium Chloride 1,000 ml @ 42 mls/hr [id number] IV 12/03/17 23:48 12/05/17 00:20 (NS Flush) 2 ml UNSCH PRN IV FLUSH 12/04/17 00:00 (NS Flush) 2 ml BID IV FLUSH 12/04/17 09:00 12/05/17 21:08 (Tylenol) 650 mg Q6H PRN PO 12/04/17 00:00 12/05/17 04:11 (Pepcid Inj) 20 mg Q12HR IV PUSH 12/04/17 09:00 12/05/17 21:08 (Zofran Inj) 4 mg Q6H PRN IV PUSH 12/04/17 00:00 (Duoneb Neb) 1 ampule Q4HR NEB INH 12/04/17 00:00 12/06/17 03:12 (Duoneb Neb) 1 ampule Q2HR NEB PRN INH 12/04/17 00:00 (Heparin Inj) 5,000 units Q8H SQ 12/04/17 00:00 12/06/17 00:33 Miscellaneous Information 1 Q361D XX 12/04/17 00:00 12/04/17 00:00 (Chlorhexidine 2% Cloth) 3 pack Taper DAILY@04 TOP 12/04/17 04:00 11/30/18 03:59 12/05/17 03:43 (Chlorhexidine 2% Cloth) 3 pack UNSCH PRN TOP 12/04/17 00:00 (Mili-Colace) 1 tab BID PO 12/04/17 09:00 12/05/17 21:07 (Milk Of Magnesia Liq) 30 ml Q12H PRN PO 12/04/17 00:00 (Senokot) 17.2 mg Q12H PRN PO 12/04/17 00:00 (Dulcolax Supp) 10 mg DAILY PRN RECTAL 12/04/17 00:00 (Lactulose Liq) 30 ml DAILY PRN PO 12/04/17 00:00 Azithromycin 500 mg/Sodium Chloride 250 ml @ 250 mls/hr Q24H IV 12/05/17 22:00 12/05/17 21:08 Pharmacy Profile Note 0 ml @ 0 mls/hr UNSCH OTHER 12/04/17 00:00 Cefepime HCl 2000 mg/Sodium Chloride 100 ml @ 200 mls/hr Q12H IV 12/04/17 17:00 12/06/17 05:14 (Mucinex Er) 600 mg BID PO 12/05/17 14:00 12/05/17 21:07 (Imitrex) 25 mg Q8H PRN PO 12/05/17 14:30 12/06/17 05:27 Amiodarone HCl 450 mg/Sodium Chloride 250 ml @ 33.33 mls/ hr Q7H31M PRN IV 12/05/17 15:58 12/06/17 05:13 (D50w (Vial) Inj) 50 ml UNSCH PRN IV PUSH 12/05/17 20:00 (Glucagon Inj) 1 mg UNSCH PRN OTHER 12/05/17 20:00 (NovoLOG SUPPLEMENTAL SCALE) 1 ACHS SLIDING SCALE SQ 12/05/17 21:00 12/05/17 21:00 Vital Signs / I&O Vital Signs Date Time Temp Pulse Resp B/P (MAP) Pulse Ox O2 Delivery O2 Flow Rate FiO2 12/06/17 06:00 75 12/06/17 05:15 59 167/80 12/06/17 05:13 65 167/80 12/06/17 04:00 72 12/06/17 04:00 98.1 58 21 154/81 (105) 98 12/06/17 02:00 75 12/06/17 00:00 98.0 67 20 146/73 (97) 95 12/06/17 00:00 60 12/05/17 22:00 72 12/05/17 20:41 96 Nasal Cannula 5.00 12/05/17 20:00 98.0 65 20 158/82 (107) 95 12/05/17 20:00 65 12/05/17 19:13 68 142/75 12/05/17 19:12 29 12/05/17 19:05 74 152/74 12/05/17 19:00 73 133/70 12/05/17 18:51 71 143/70 12/05/17 18:00 77 12/05/17 16:00 72 12/05/17 16:00 98.2 72 21 147/100 (116) 96 12/05/17 14:00 85 12/05/17 12:00 74 12/05/17 12:00 98.0 74 15 129/80 (96) 100 12/05/17 10:00 128 12/05/17 08:00 97.7 82 27 130/69 (89) 92 12/05/17 08:00 82 I/O 12/05/17 12/05/17 12/05/17 12/06/17 12/06/17 12/06/17 07:00 15:00 23:00 07:00 15:00 23:00 Intake Total 760 ml 2901 ml 877 ml Output Total 2200 ml 950 ml 2000 ml Balance -1440 ml 1951 ml -1123 ml Intake Oral 240 ml 980 ml 380 ml IV Total 520 ml 1921 ml 497 ml Output Urine Total 2200 ml 950 ml 2000 ml # Voids 2 # Bowel Movements 0 0 Physical Exam GENERAL: Well developed, well nourished. No acute distress. HEENT: Jugular venous pressure is normal. CHEST: Lungs rhonchi bilaterally. Unlabored respiratory effort. CARDIAC: Regular rate and rhythm without S3, S4, or murmur. ABDOMEN: Soft, nontender, no hepatosplenomegaly. Bowel sounds present. EXTREMITIES: No clubbing, cyanosis, or edema. Laboratory Laboratory Tests Test 12/05/17 09:58 White Blood Count 7.1 TH/MM3 Red Blood Count 4.28 MIL/MM3 Hemoglobin 13.2 GM/DL Hematocrit 39.1 % Mean Corpuscular Volume 91.3 FL Mean Corpuscular Hemoglobin 30.7 PG Mean Corpuscular Hemoglobin Concent 33.6 % Red Cell Distribution Width 15.7 % Platelet Count 86 TH/MM3 Mean Platelet Volume 9.1 FL Neutrophils (%) (Auto) 82.7 % Lymphocytes (%) (Auto) 13.8 % Monocytes (%) (Auto) 2.6 % Eosinophils (%) (Auto) 0.7 % Basophils (%) (Auto) 0.2 % Neutrophils # (Auto) 5.9 TH/MM3 Lymphocytes # (Auto) 1.0 TH/MM3 Monocytes # (Auto) 0.2 TH/MM3 Eosinophils # (Auto) 0.0 TH/MM3 Basophils # (Auto) 0.0 TH/MM3 CBC Comment AUTO DIFF Differential Comment AUTO DIFF CONFIRMED Platelet Estimate LOW Platelet Morphology Comment NORMAL Imaging Last 72 hours Impressions Chest X-Ray 12/05/17 0600 Signed Impressions: Service Date/Time: Tuesday, December 05, 2017 04:23 - CONCLUSION: Improving aeration in the right upper and left lower lobes Percy Ferraro MD Chest X-Ray 12/04/17 0000 Signed Impressions: Service Date/Time: Monday, December 04, 2017 03:22 - CONCLUSION: 1. Worsening consolidation in the left base with developing infiltrate in the right upper lung. 2. Cardiomegaly. Percy Ferraro MD Chest X-Ray 12/03/171942 Signed Impressions: Service Date/Time: Sunday, December 03, 2017 20:08 - CONCLUSION: Modest worsening left base consolidation. Mild atelectasis developing right base. Kwadwo Quinteros MD CT Angiography 12/03/171942 Signed Impressions: Service Date/Time: Sunday, December 03, 2017 22:54 - CONCLUSION: 1. Somewhat limited exam of minimal contrast in the pulmonary artery. No large central pulmonary embolus, however. 2. However, oblique patient's symptoms are probably related to worsening pneumonic infiltrates. New interstitial process posteriorly in the right upper lobe with areas of consolidation in both lung bases, left worse than right. Percy Ferraro MD Assessment and Plan Assessment and Plan WCT- pt with normal LV function last month on ECHO; on amio -BB felt relatively contraindicated secondary to his poor respiratory status -poor revasc candidate at this time, agree with medical management for now Pneumonia- per primary team Aysha Somers MD Dec 06, 2017 07:52
[2017-12-06 07:59] LABS: AUTOMATED NEUTROPHIL # 4.4 TH/MM3 (1.8-7.7); BASOPHIL % 0.2 % (0.0-2.0); EOSINOPHIL # 0.1 TH/MM3 (0-0.4); EOSINOPHIL % 1.3 % (0.0-4.0); HEMOGLOBIN 12.3 GM/DL (13.0-17.0); MEAN CORPUSCULAR HEMOGLOBIN 30.7 PG (27.0-34.0); MEAN CORPUSCULAR HGB CONC 33.4 % (32.0-36.0); MONO % 3.8 % (0.0-8.0); MONOCYTE # 0.2 TH/MM3 (0-0.9); NEUT % 77.7 % (16.0-70.0); PLATELET COUNT 88 TH/MM3 (150-450); RED BLOOD COUNT 4.02 MIL/MM3 (4.50-5.90); RED CELL DISTRIBUTION WIDTH 16.1 % (11.6-17.2); WHITE BLOOD COUNT 5.7 TH/MM3 (4.0-11.0)
[2017-12-06] MEDS: LIPASE/PROTEASE/AMYLASE (24,000/76,000/120,000) CAP PO SCH ×3 (08:15→18:30)
[2017-12-06] MEDS: LEVOFLOXACIN 750 MG TAB PO SCH (08:15)
[2017-12-06] MEDS: ESCITALOPRAM OXALATE 10 MG TAB PO SCH (08:16)
[2017-12-06] MEDS: DULoxetine HCl DR 60 MG CAP PO SCH (08:16)
[2017-12-06] MEDS: DOCUSATE SODIUM 50 MG/SENNA 8.6 MG TAB PO SCH ×2 (08:16→20:44)
[2017-12-06] MEDS: glipiZIDE 5 MG TAB PO SCH ×2 (08:16→17:00)
[2017-12-06] MEDS: ASPIRIN 81 MG CHEW TAB CHEW SCH (08:16)
[2017-12-06] MEDS: FLUCONAZOLE 200 MG TAB PO SCH (08:16)
[2017-12-06] MEDS: guaiFENesin E.R. 600 MG TAB PO SCH ×2 (08:16→20:44)
[2017-12-06] MEDS: TOPIRAMATE 25 MG TAB PO SCH ×2 (08:16→20:44)
[2017-12-06] MEDS: predniSONE 10 MG TAB PO SCH (08:16)
[2017-12-06] MEDS: PREGABALIN 100 MG CAP PO SCH ×3 (08:16→14:00)
[2017-12-06] MEDS: SODIUM CHLORIDE 0.9% FLUSH 10 ML FLUSH IV FLUSH SCH ×2 (08:17→20:46)
[2017-12-06] MEDS: FAMOTIDINE 20 MG/2 ML VIAL IV PUSH SCH ×2 (08:17→20:45)
[2017-12-06 08:28] LABS: AST (GOT) 11 U/L (15-37); CHLORIDE 109 MEQ/L (98-107); CREATININE 1.22 MG/DL (0.60-1.30); GLOMERULAR FILTRATION RATE 58 ML/MIN (>89); GLUCOSE,RANDOM 118 MG/DL (74-106); SODIUM (NA) 143 MEQ/L (136-145)
[2017-12-06 08:38] LABS: ALBUMIN 1.9 GM/DL (3.4-5.0); ALKALINE PHOSPHATASE 57 U/L (45-117); ALT (GPT) 14 U/L (12-78); BLOOD UREA NITROGEN 24 MG/DL (7-18); CALCIUM 7.8 MG/DL (8.5-10.1); FREE T4 0.89 NG/DL (0.76-1.46); PHOSPHORUS 2.1 MG/DL (2.5-4.9); RANDOM VANCOMYCIN 10.8 COMMENT; TOTAL BILIRUBIN ADULT 0.5 MG/DL (0.2-1.0); TOTAL PROTEIN 5.6 GM/DL (6.4-8.2)
[2017-12-06 08:44] LABS: ACANTHOCYTES OCC (NORMAL); OVALOCYTES 1+ (NORMAL)
[2017-12-06] MEDS: MOVANTIK 25 MG PO SCH (09:00)
[2017-12-06] MEDS: PT OWN LINZESS 145 MCG PO SCH (09:00)
--- NOTE | 2017-12-06 10:31 | EKG ---
Date Performed: 12/05/2017 Time Performed: 11:16:37 PTAGE: 77 years EKG: SINUS TACHYCARDIA PATTERN CONSISTENT WITH PULMONARY DISEASE INFERIOR MYOCARDIAL INFARCTION , PROBABLY OLD ABNORMAL ECG Compared to PREVIOUS TRACING the patient is now tachycardic PREVIOUS TRACIN12/03/2017 19.41 DOCTOR: Aysha Somers Interpretating Date/Time 12/06/2017 10:29:57
[2017-12-06] MEDS: VANCOMYCIN INJ 1,500 MG in SODIUM CHLORID 0.9% 500 ML INJ 500 ML IV SCH (12:00)
[2017-12-06] MEDS: INSULIN ASPART SUPPLEMENTAL SCALE SQ SCH ×3 (12:00→20:47)
[2017-12-06] MEDS: AMPICILLIN-SULBACTAM INJ 3 GM in SODIUM CHLORIDE 0.9% INJ 100 ML IV SCH ×2 (12:30→18:30)
--- NOTE | 2017-12-06 12:42 | HHI.IDPN ---
Note Infectious Disease Note Patient says that he had a difficult time last night. Reports difficulty with breathing. Has been coughing up sputum all night. Afebrile. Denies chest pain. Denies chills. Sputum culture has Acinetobacter. Highly resistant. 77-year-old white male who was recently discharged from the hospital after treatment for pneumonia. The patient was evaluated between 11/14 and 12/02, was discharged after treatment for pneumonia. Cultures obtained during last admission were all negative. The patient went home and states that he was feeling very weak and had difficulty ambulating and shortness of breath and also had no appetite. He presented to the emergency department on 12/03 for evaluation and had to be put on BiPAP. Chest x-ray was performed and it showed worsening infiltrates. The patient underwent bronchoscopy on 2 occasions during the last hospitalization and cultures were negative. There were thick, tenacious secretions suctioned from the tracheal tree. The only culture which came back from the bronchoscopy on 11/23/2017 showed Elizabeth albicans. He received treatment with fluconazole and was discharged home on fluconazole and Levaquin. PAST MEDICAL HISTORY: Hypertension, gastroesophageal reflux disease, hyperlipidemia, allergic rhinitis, history of migraine headaches, vasculitis, CVA in 2009, chronic low back pain, spinal stimulator, carotid artery surgery, bilateral knee surgery, osteomyelitis of the left lower extremity in 1964, back fusion. ALLERGIES: NO KNOWN DRUG ALLERGIES. Current Medications Medications (Trade) Dose Ordered Sig/Nilsa Route PRN Reason Start Time Stop Time Status Last Admin Dose Admin Aspirin (Aspirin Chew) 81 mg DAILY CHEW 12/04/17 09:00 12/06/17 08:16 Carbidopa/Levodopa (Sinemet 25-100 Mg) 1 tab Q8HR PO 12/04/17 06:00 12/06/17 05:13 Donepezil HCl (Aricept) 10 mg HS PO 12/04/17 21:00 12/05/17 21:07 Duloxetine HCl (Cymbalta Dr) 60 mg DAILY PO 12/04/17 09:00 12/06/17 08:16 Escitalopram Oxalate (Lexapro) 10 mg DAILY PO 12/04/17 09:00 12/06/17 08:16 Fluconazole (Diflucan) 200 mg DAILY PO 12/04/17 09:00 12/06/17 08:16 Glipizide (Glucotrol) 5 mg BID@ PO 12/04/17 08:00 12/06/17 08:16 Levofloxacin (Levaquin) 750 mg DAILY PO 12/04/17 09:00 12/06/17 08:15 Prednisone (Deltasone) 10 mg DAILY PO 12/04/17 09:00 12/06/17 08:16 Pregabalin (Lyrica) 200 mg TID PO 12/04/17 09:00 12/06/17 08:16 Temazepam (Restoril) 30 mg HS PRN PO INSOMNIA 12/03/17 23:45 12/04/17 19:58 Topiramate (Topamax) 25 mg BID PO 12/04/17 09:00 12/06/17 08:16 Patient Own Medication PT OWN MED: LINZ... DAILY PO 12/04/17 09:00 Patient Own Medication PT OWN MED: MOVAN... DAILY PO 12/04/17 09:00 Amylase/Lipase/ Protease (Creon 24-76-120) 1 cap TIDPC PO 12/04/17 09:30 12/06/17 08:15 Sodium Chloride 1,000 ml @ 42 mls/hr [id number] IV 12/03/17 23:48 12/05/17 00:20 Sodium Chloride (NS Flush) 2 ml UNSCH PRN IV FLUSH FLUSH AFTER USING IV ACCESS 12/04/17 00:00 Sodium Chloride (NS Flush) 2 ml BID IV FLUSH 12/04/17 09:00 12/06/17 08:17 Acetaminophen (Tylenol) 650 mg Q6H PRN PO PAIN 1-10 AND/OR FEVER >101F 12/04/17 00:00 12/05/17 04:11 Famotidine (Pepcid Inj) 20 mg Q12HR IV PUSH 12/04/17 09:00 12/06/17 08:17 Ondansetron HCl (Zofran Inj) 4 mg Q6H PRN IV PUSH NAUSEA OR VOMITING 12/04/17 00:00 Albuterol/ Ipratropium (Duoneb Neb) 1 ampule Q4HR NEB INH 12/04/17 00:00 12/06/17 12:04 Albuterol/ Ipratropium (Duoneb Neb) 1 ampule Q2HR NEB PRN INH WHEEZING 12/04/17 00:00 Heparin Sodium (Porcine) (Heparin Inj) 5,000 units Q8H SQ 12/04/17 00:00 12/06/17 08:17 Miscellaneous Information 1 Q361D XX 12/04/17 00:00 12/04/17 00:00 Chlorhexidine Gluconate (Chlorhexidine 2% Cloth) 3 pack Taper DAILY@04 TOP 12/04/17 04:00 11/30/18 03:59 12/05/17 03:43 Chlorhexidine Gluconate (Chlorhexidine 2% Cloth) 3 pack UNSCH PRN TOP HYGIENIC CARE 12/04/17 00:00 Senna/Docusate Sodium (Mili-Colace) 1 tab BID PO 12/04/17 09:00 12/06/17 08:16 Magnesium Hydroxide (Milk Of Magnesia Liq) 30 ml Q12H PRN PO Mild constipation 12/04/17 00:00 Sennosides (Senokot) 17.2 mg Q12H PRN PO Moderate constipation 12/04/17 00:00 Bisacodyl (Dulcolax Supp) 10 mg DAILY PRN RECTAL SEVERE CONSITIPATION/ IF NPO 12/04/17 00:00 Lactulose (Lactulose Liq) 30 ml DAILY PRN PO SEVERE CONSITIPATION/ IF PO 12/04/17 00:00 Azithromycin 500 mg/Sodium Chloride 250 ml @ 250 mls/hr Q24H IV 12/05/17 22:00 12/05/17 21:08 Pharmacy Profile Note 0 ml @ 0 mls/hr UNSCH OTHER 12/04/17 00:00 Cefepime HCl 2000 mg/Sodium Chloride 100 ml @ 200 mls/hr Q12H IV 12/04/17 17:00 12/06/17 05:14 Guaifenesin (Mucinex Er) 600 mg BID PO 12/05/17 14:00 12/06/17 08:16 Sumatriptan Succinate (Imitrex) 25 mg Q8H PRN PO HEADACHE 12/05/17 14:30 12/06/17 05:27 Amiodarone HCl 450 mg/Sodium Chloride 250 ml @ 33.33 mls/ hr Q7H31M PRN IV Per Protocol 12/05/17 15:58 12/06/17 05:13 Dextrose (D50w (Vial) Inj) 50 ml UNSCH PRN IV PUSH HYPOGLYCEMIA-SEE COMMENTS 12/05/17 20:00 Glucagon (Glucagon Inj) 1 mg UNSCH PRN OTHER HYPOGLYCEMIA-SEE COMMENTS 12/05/17 20:00 Insulin Aspart (NovoLOG SUPPLEMENTAL SCALE) 1 ACHS SLIDING SCALE SQ 12/05/17 21:00 12/05/17 21:00 Vancomycin HCl 1500 mg/Sodium Chloride 515 ml @ 250 mls/hr Q18H IV 12/06/17 12:00 Miscellaneous Information SPECIFIC LAB TO BE DRAWN:VANCOMYCIN TROUGH DATE TO... ONCE ONCE .XX 12/07/17 23:45 12/07/17 23:46 OBJECTIVE: Vital Signs Date Time Temp Pulse Resp B/P (MAP) Pulse Ox O2 Delivery O2 Flow Rate FiO2 12/06/17 12:25 97 Nasal Cannula 3.00 12/06/17 08:07 97 Nasal Cannula 4.00 12/06/17 06:00 75 12/06/17 05:15 59 167/80 12/06/17 05:13 65 167/80 12/06/17 04:00 72 12/06/17 04:00 98.1 58 21 154/81 (105) 98 12/06/17 02:00 75 12/06/17 00:00 98.0 67 20 146/73 (97) 95 12/06/17 00:00 60 12/05/17 22:00 72 12/05/17 20:41 96 Nasal Cannula 5.00 12/05/17 20:00 98.0 65 20 158/82 (107) 95 12/05/17 20:00 65 12/05/17 19:13 68 142/75 12/05/17 19:12 29 12/05/17 19:05 74 152/74 12/05/17 19:00 73 133/70 12/05/17 18:51 71 143/70 12/05/17 18:00 77 12/05/17 16:00 72 12/05/17 16:00 98.2 72 21 147/100 (116) 96 12/05/17 14:00 85 Laboratory Tests Test 12/05/17 09:58 12/06/17 05:50 White Blood Count 7.1 TH/MM3 5.7 TH/MM3 Red Blood Count 4.28 MIL/MM3 4.02 MIL/MM3 Hemoglobin 13.2 GM/DL 12.3 GM/DL Hematocrit 39.1 % 37.0 % Mean Corpuscular Volume 91.3 FL 92.0 FL Mean Corpuscular Hemoglobin 30.7 PG 30.7 PG Mean Corpuscular Hemoglobin Concent 33.6 % 33.4 % Red Cell Distribution Width 15.7 % 16.1 % Platelet Count 86 TH/MM3 88 TH/MM3 Mean Platelet Volume 9.1 FL 9.0 FL Neutrophils (%) (Auto) 82.7 % 77.7 % Lymphocytes (%) (Auto) 13.8 % 17.0 % Monocytes (%) (Auto) 2.6 % 3.8 % Eosinophils (%) (Auto) 0.7 % 1.3 % Basophils (%) (Auto) 0.2 % 0.2 % Neutrophils # (Auto) 5.9 TH/MM3 4.4 TH/MM3 Lymphocytes # (Auto) 1.0 TH/MM3 1.0 TH/MM3 Monocytes # (Auto) 0.2 TH/MM3 0.2 TH/MM3 Eosinophils # (Auto) 0.0 TH/MM3 0.1 TH/MM3 Basophils # (Auto) 0.0 TH/MM3 0.0 TH/MM3 CBC Comment AUTO DIFF AUTO DIFF Differential Comment AUTO DIFF CONFIRMED AUTO DIFF CONFIRMED Platelet Estimate LOW LOW Platelet Morphology Comment NORMAL NORMAL Ovalocytes 1+ Acanthocytes OCC Laboratory Tests Test 12/05/17 05:59 12/06/17 05:50 Blood Urea Nitrogen 23 MG/DL 24 MG/DL Creatinine 1.16 MG/DL 1.22 MG/DL Random Glucose 156 MG/DL 118 MG/DL Calcium Level 7.7 MG/DL 7.8 MG/DL Sodium Level 140 MEQ/L 143 MEQ/L Potassium Level 3.8 MEQ/L 4.2 MEQ/L Chloride Level 108 MEQ/L 109 MEQ/L Carbon Dioxide Level 22.5 MEQ/L 25.0 MEQ/L Anion Gap 10 MEQ/L 9 MEQ/L Estimat Glomerular Filtration Rate 61 ML/MIN 58 ML/MIN Total Protein 5.6 GM/DL Albumin 1.9 GM/DL Phosphorus Level 2.1 MG/DL Magnesium Level 2.0 MG/DL Alkaline Phosphatase 57 U/L Aspartate Amino Transf (AST/SGOT) 11 U/L Alanine Aminotransferase (ALT/SGPT) 14 U/L Total Bilirubin 0.5 MG/DL Free Thyroxine 0.89 NG/DL Thyroid Stimulating Hormone 3rd Gen 2.910 uIU/ML Microbiology Date/Time Source Procedure Growth Status 12/04/17 06:12 Blood Peripheral Aerobic Blood Culture - Preliminary NO GROWTH IN 2 DAYS Resulted 12/04/17 06:12 Blood Peripheral Anaerobic Blood Culture - Preliminary NO GROWTH IN 2 DAYS Resulted 12/04/17 13:20 Sputum Expectorated Sputum Acid Fast Stain Pending Received 12/04/17 13:20 Sputum Expectorated Sputum Mycobacterial Culture Pending Received 12/04/17 13:20 Sputum Expectorated Sputum Fungal Smear Pending Received 12/04/17 13:20 Sputum Expectorated Sputum Fungal Culture Pending Received 12/04/17 13:20 Sputum Expectorated Sputum Gram Stain - Final Resulted 12/04/17 13:20 Sputum Culture - Preliminary Acinetobacter Baumannii/Haemol Multi-Drug Resistant Resulted IMAGING: Chest X-Ray 12/05/17 0600 Signed Impressions: Service Date/Time: Tuesday, December 05, 2017 04:23 - CONCLUSION: Improving aeration in the right upper and left lower lobes Percy Ferraro MD Chest X-Ray 12/04/17 0000 Signed Impressions: Service Date/Time: Monday, December 04, 2017 03:22 - CONCLUSION: 1. Worsening consolidation in the left base with developing infiltrate in the right upper lung. 2. Cardiomegaly. Percy Ferraro MD CT Angiography 12/03/17 194 Signed Impressions: Service Date/Time: Sunday, December 03, 2017 22:54 - CONCLUSION: 1. Somewhat limited exam of minimal contrast in the pulmonary artery. No large central pulmonary embolus, however. 2. However, oblique patient's symptoms are probably related to worsening pneumonic infiltrates. New interstitial process posteriorly in the right upper lobe with areas of consolidation in both lung bases, left worse than right. Percy Ferraro MD PHYSICAL EXAMINATION: GENERAL: Patient currently on oxygen via nasal cannula. HEENT: No icterus. No conjunctival erythema. NECK: Supple without adenopathy. LUNGS: Coarse bilateral breath sounds. HEART: Irregular rate and rhythm. No audible murmur. No rubs or gallops. ABDOMEN: Obese, soft, decreased bowel sounds. No tenderness. EXTREMITIES: No clubbing, cyanosis or edema. SKIN: No rash. NEUROLOGIC: No gross focal findings. PSYCHIATRIC: Calm and cooperative. IMPRESSION: 1. Pneumonia. HCAP. Previously failed antibiotic treatment Sputum culture has multidrug-resistant Acinetobacter. 2. Hypoxemia requiring BiPAP. 3. Leukocytosis. WBC lower. 4. Chronic kidney disease. RECOMMENDATIONS: 1. Stop Levaquin. 2. Continue cefepime. 3. Stop azithromycin. 4. Continue fluconazole. 5. Stop vancomycin. 6. Add aerosol tobramycin. 7. Add Unasyn. 8. Isolation for Acinetobacter. 9. Follow clinical status. Because of the multidrug-resistant organism, I have requested microbiology to do additional antibiotic testing on the organism. Mack Hodgson MD Dec 06, 2017 12:42
--- NOTE | 2017-12-06 15:50 | HHI.PR ---
Subjective Remarks Patient reports persistent chest congestion. Still short of breath but slightly improved compared to yesterday. Still on amiodarone drip. Sputum culture growing multi drug resistant Acinetobacter. Objective Vitals Vital Signs Date Time Temp Pulse Resp B/P (MAP) Pulse Ox O2 Delivery O2 Flow Rate FiO2 12/06/17 12:25 97 Nasal Cannula 3.00 12/06/17 08:07 97 Nasal Cannula 4.00 12/06/17 06:00 75 12/06/17 05:15 59 167/80 12/06/17 05:13 65 167/80 12/06/17 04:00 72 12/06/17 04:00 98.1 58 21 154/81 (105) 98 12/06/17 02:00 75 12/06/17 00:00 98.0 67 20 146/73 (97) 95 12/06/17 00:00 60 12/05/17 22:00 72 12/05/17 20:41 96 Nasal Cannula 5.00 12/05/17 20:00 98.0 65 20 158/82 (107) 95 12/05/17 20:00 65 12/05/17 19:13 68 142/75 12/05/17 19:12 29 12/05/17 19:05 74 152/74 12/05/17 19:00 73 133/70 12/05/17 18:51 71 143/70 12/05/17 18:00 77 12/05/17 16:00 72 12/05/17 16:00 98.2 72 21 147/100 (116) 96 I/O 12/05/17 12/05/17 12/05/17 12/06/17 12/06/17 12/06/17 07:00 15:00 23:00 07:00 15:00 23:00 Intake Total 760 ml 2901 ml 877 ml Output Total 2200 ml 950 ml 2000 ml Balance -1440 ml 1951 ml -1123 ml Intake Oral 240 ml 980 ml 380 ml IV Total 520 ml 1921 ml 497 ml Output Urine Total 2200 ml 950 ml 2000 ml # Voids 2 # Bowel Movements 0 0 Result Diagram: 12/06/17 0550 12/06/17 0550 Objective Remarks GENERAL: Elderly male. Appears frail. CARDIOVASCULAR: Normal rate and regular rhythm without murmurs, gallops, or rubs. RESPIRATORY: Air movement is fair. Diffuse rhonchi throughout. Spasmodic cough. GASTROINTESTINAL: Abdomen soft, non-tender, non-distended. Normal active bowel sounds MUSCULOSKELETAL: Extremities without cyanosis, or edema. NEURO: Alert & Oriented x4 to person, place, time, situation. Moves all ext x4 PSYCH: Appropriate mood and affect. A/P Assessment and Plan 77-year-old male with: Respiratory failure secondary to pneumonia - Worsening pneumonia secondary to multidrug-resistant Acinetobacter - Infectious disease following-Dr. Hodgson -Antibiotics per ID, continue cefepime, fluconazole, I resolve tobramycin added. - Isolation for Acinetobacter -Supplemental oxygen, BiPAP as needed. Incentive spirometer Uncontrolled atrial fibrillation: Pneumonia probably contributed. - Treat pneumonia as above - Appreciate cardiology following. On IV amiodarone currently. Depression - Escitalopram - Cymbalta Gastroesophageal reflux disease - Pepcid Memory deficit - Aricept Migraine headaches - Topamax Hyperlipidemia - Resume home dose statins as an outpatient Chronic pancreatitis continue on Creon Parkinson's continue on Sinemet PT and OT to eval and treat DVT GI prophylaxis - Teds SCDs - Subcutaneous heparin - Pepcid Discharge Planning Keep in ICU for now, on amiodarone drip. At risk for worsening respiratory status. Lisandra Lo MD Dec 06, 2017 15:50
[2017-12-06] MEDS: RESP: TOBRAMYCIN SULFATE 300 MG/5 ML NEB NEB SCH (20:34)
[2017-12-06] MEDS: DONEPEZIL HCL 5 MG TAB PO SCH (20:44)
[2017-12-06] MEDS: TEMAZEPAM 15 MG CAP PO PRN (21:03)
[2017-12-07] VITALS (25 sets, daily range): BP systolic 136–180; BP diastolic 69–91; PULSE 52–70; RESP 14–25; TEMP 97.7–98.7; O2SAT 88–97
[2017-12-07] MEDS: HEPARIN SODIUM - SQ 10,000 UNITS/ML VIAL SQ SCH ×3 (00:50→16:20)
[2017-12-07] MEDS: AMPICILLIN-SULBACTAM INJ 3 GM in SODIUM CHLORIDE 0.9% INJ 100 ML IV SCH ×4 (00:52→19:19)
[2017-12-07] MEDS: RESP: ALBUTEROL 2.5 MG/IPRATROPIUM 0.5 MG NEB (SCH) INH ×6 (03:16→22:15)
[2017-12-07] MEDS: CHLORHEXIDINE GLUCONATE 2 % 1 PACK (2 CLOTHS) TOP SCH (04:00)
[2017-12-07] MEDS: CARBIDOPA/LEVODOPA 25 MG/100 MG TAB PO SCH ×3 (05:31→21:35)
[2017-12-07] MEDS: VANCOMYCIN INJ 1,500 MG in SODIUM CHLORID 0.9% 500 ML INJ 500 ML IV SCH (05:31)
[2017-12-07] MEDS: CEFEPIME INJ 2,000 MG in SODIUM CHLORIDE 0.9% INJ 100 ML IV SCH ×2 (05:31→19:20)
[2017-12-07] MEDS: glipiZIDE 5 MG TAB PO SCH ×2 (08:00→17:00)
[2017-12-07] MEDS: INSULIN ASPART SUPPLEMENTAL SCALE SQ SCH ×4 (08:00→21:00)
--- NOTE | 2017-12-07 08:57 | HHI.PR ---
Subjective Remarks Follow-up pneumonia, atrial fibrillation. The patient continues to report shortness of breath and cough. States that he feels about the same today as yesterday. No chest pain, nausea, vomiting, diarrhea, constipation. Objective Vitals Vital Signs Date Time Temp Pulse Resp B/P (MAP) Pulse Ox O2 Delivery O2 Flow Rate FiO2 12/07/17 08:00 56 12/07/17 07:01 97.7 55 19 158/76 (103) 95 12/07/17 07:00 54 12/07/17 06:00 61 12/07/17 04:00 56 12/07/17 04:00 97.9 56 16 136/81 (99) 96 12/07/17 02:00 54 12/07/17 00:00 57 12/07/17 00:00 98.4 57 16 158/80 (106) 97 12/06/17 22:00 61 12/06/17 20:45 64 163/96 12/06/17 20:19 96 Nasal Cannula 3.50 12/06/17 20:00 60 12/06/17 20:00 98.5 60 20 163/96 (118) 96 12/06/17 18:00 62 12/06/17 17:44 98 Nasal Cannula 3.50 12/06/17 16:00 67 12/06/17 16:00 98.0 67 22 167/75 (105) 95 12/06/17 15:00 68 12/06/17 14:00 69 12/06/17 12:25 97 Nasal Cannula 3.00 12/06/17 12:00 97.7 67 21 134/75 (94) 95 12/06/17 12:00 67 12/06/17 10:00 72 12/06/17 09:00 59 I/O 12/06/17 12/06/17 12/06/17 12/07/17 12/07/17 12/07/17 07:00 15:00 23:00 07:00 15:00 23:00 Intake Total 877 ml 600 ml 950 ml 600 ml Output Total 2000 ml 2500 ml 2960 ml Balance -1123 ml 600 ml -1550 ml -2360 ml Intake Oral 380 ml 500 ml 300 ml IV Total 497 ml 600 ml 450 ml 300 ml Output Urine Total 2000 ml 2500 ml 2960 ml # Voids 5 5 # Bowel Movements 1 0 Result Diagram: 12/06/17 0550 12/06/17 0550 Imaging Last Impressions Chest X-Ray 12/05/17 0600 Signed Impressions: Service Date/Time: Tuesday, December 05, 2017 04:23 - CONCLUSION: Improving aeration in the right upper and left lower lobes Percy Ferraro MD CT Angiography 12/03/171942 Signed Impressions: Service Date/Time: Sunday, December 03, 2017 22:54 - CONCLUSION: 1. Somewhat limited exam of minimal contrast in the pulmonary artery. No large central pulmonary embolus, however. 2. However, oblique patient's symptoms are probably related to worsening pneumonic infiltrates. New interstitial process posteriorly in the right upper lobe with areas of consolidation in both lung bases, left worse than right. Percy Ferraro MD Objective Remarks General: Elderly male in no acute distress. Heart: Bradycardic, irregular. No murmur. Lungs: Diffuse rhonchi. Breathing is nonlabored. Abdomen: Soft, nontender, nondistended. Extremities: No lower extremity edema. Psych: Alert and oriented. Procedures None Urinary Catheter: No Vascular Central Line Catheter: No A/P Assessment and Plan 1. Respiratory failure secondary to pneumonia: Sputum culture growing multidrug resistant Acinetobacter. Appreciate infectious disease recommendations. Continue special contact, droplet isolation. Continue cefepime, fluconazole, aerosolized tobramycin. BiPAP as needed. Continue supplemental oxygen. Incentive spirometry. 2. Uncontrolled atrial fibrillation: Possibly worsened by infection. Appreciate cardiology recommendations. Amiodarone drip discontinued this morning due to bradycardia. 3. Depression: Continue escitalopram, Cymbalta. 4. GERD: Pepcid. 5. Memory deficit: Aricept. 6. Migraine headaches: Topamax. 7. Hyperlipidemia: Resume statin as outpatient. 8. Chronic pancreatitis: Continue Creon. 9. Parkinson's disease: Continue Sinemet. 10. DVT prophylaxis: SCDs, JOAQUINA hose, heparin. Eduard Escamilla MD Dec 07, 2017 08:57
[2017-12-07] MEDS: MOVANTIK 25 MG PO SCH (09:00)
[2017-12-07] MEDS: RESP: TOBRAMYCIN SULFATE 300 MG/5 ML NEB NEB SCH ×2 (09:15→22:42)
[2017-12-07] MEDS: AMIODARONE 200 MG TAB PO SCH (10:00)
[2017-12-07] MEDS: PT OWN LINZESS 145 MCG PO SCH (11:34)
[2017-12-07] MEDS: TOPIRAMATE 25 MG TAB PO SCH ×2 (11:35→21:35)
[2017-12-07] MEDS: LIPASE/PROTEASE/AMYLASE (24,000/76,000/120,000) CAP PO SCH ×3 (11:35→19:20)
[2017-12-07] MEDS: ESCITALOPRAM OXALATE 10 MG TAB PO SCH (11:35)
[2017-12-07] MEDS: PREGABALIN 100 MG CAP PO SCH ×3 (11:35→18:00)
[2017-12-07] MEDS: FAMOTIDINE 20 MG/2 ML VIAL IV PUSH SCH ×2 (11:36→21:36)
[2017-12-07] MEDS: ASPIRIN 81 MG CHEW TAB CHEW SCH (11:36)
[2017-12-07] MEDS: predniSONE 10 MG TAB PO SCH (11:36)
[2017-12-07] MEDS: FLUCONAZOLE 200 MG TAB PO SCH (11:36)
[2017-12-07] MEDS: DOCUSATE SODIUM 50 MG/SENNA 8.6 MG TAB PO SCH ×2 (11:37→21:35)
[2017-12-07] MEDS: guaiFENesin E.R. 600 MG TAB PO SCH ×2 (11:40→21:35)
[2017-12-07] MEDS: DULoxetine HCl DR 60 MG CAP PO SCH (11:40)
[2017-12-07] MEDS ORDERED: ENALAPRILAT 1.25 MG/ML VIAL IV PUSH PRN (12:30)
[2017-12-07] MEDS: SUMAtriptan SUCCINATE 25 MG TAB PO PRN (12:51)
[2017-12-07] MEDS ORDERED: PILL SPLITTER OTHER PRN (13:45)
--- NOTE | 2017-12-07 13:48 | HHI.IDPN ---
Note Infectious Disease Note Patient says that he had a difficult time last night. Did not require BiPAP overnight. Currently on O2 via nasal cannula. 4 LO2. Still has cough. Afebrile. Denies chest pain. Denies chills. 77-year-old white male who was recently discharged from the hospital after treatment for pneumonia. The patient was evaluated between 11/14 and 12/02, was discharged after treatment for pneumonia. Cultures obtained during last admission were all negative. The patient went home and states that he was feeling very weak and had difficulty ambulating and shortness of breath and also had no appetite. He presented to the emergency department on 12/03 for evaluation and had to be put on BiPAP. Chest x-ray was performed and it showed worsening infiltrates. The patient underwent bronchoscopy on 2 occasions during the last hospitalization and cultures were negative. There were thick, tenacious secretions suctioned from the tracheal tree. The only culture which came back from the bronchoscopy on 11/23/2017 showed Elizabeth albicans. He received treatment with fluconazole and was discharged home on fluconazole and Levaquin. PAST MEDICAL HISTORY: Hypertension, gastroesophageal reflux disease, hyperlipidemia, allergic rhinitis, history of migraine headaches, vasculitis, CVA in 2009, chronic low back pain, spinal stimulator, carotid artery surgery, bilateral knee surgery, osteomyelitis of the left lower extremity in 1964, back fusion. ALLERGIES: NO KNOWN DRUG ALLERGIES. Current Medications Medications (Trade) Dose Ordered Sig/Nilsa Route PRN Reason Start Time Stop Time Status Last Admin Dose Admin Aspirin (Aspirin Chew) 81 mg DAILY CHEW 12/04/17 09:00 12/07/17 11:36 Carbidopa/Levodopa (Sinemet 25-100 Mg) 1 tab Q8HR PO 12/04/17 06:00 12/07/17 05:31 Donepezil HCl (Aricept) 10 mg HS PO 12/04/17 21:00 12/06/17 20:44 Duloxetine HCl (Cymbalta Dr) 60 mg DAILY PO 12/04/17 09:00 12/07/17 11:40 Escitalopram Oxalate (Lexapro) 10 mg DAILY PO 12/04/17 09:00 12/07/17 11:35 Fluconazole (Diflucan) 200 mg DAILY PO 12/04/17 09:00 12/07/17 11:36 Glipizide (Glucotrol) 5 mg BID@ PO 12/04/17 08:00 12/06/17 17:00 Prednisone (Deltasone) 10 mg DAILY PO 12/04/17 09:00 12/07/17 11:36 Pregabalin (Lyrica) 200 mg TID PO 12/04/17 09:00 12/07/17 11:35 Temazepam (Restoril) 30 mg HS PRN PO INSOMNIA 12/03/17 23:45 12/06/17 21:03 Topiramate (Topamax) 25 mg BID PO 12/04/17 09:00 12/07/17 11:35 Patient Own Medication PT OWN MED: LINZ... DAILY PO 12/04/17 09:00 12/07/17 11:34 Patient Own Medication PT OWN MED: MOVAN... DAILY PO 12/04/17 09:00 Amylase/Lipase/ Protease (Creon 24-76-120) 1 cap TIDPC PO 12/04/17 09:30 12/07/17 11:35 Sodium Chloride (NS Flush) 2 ml UNSCH PRN IV FLUSH FLUSH AFTER USING IV ACCESS 12/04/17 00:00 Sodium Chloride (NS Flush) 2 ml BID IV FLUSH 12/04/17 09:00 12/06/17 20:46 Acetaminophen (Tylenol) 650 mg Q6H PRN PO PAIN 1-10 AND/OR FEVER >101F 12/04/17 00:00 12/05/17 04:11 Famotidine (Pepcid Inj) 20 mg Q12HR IV PUSH 12/04/17 09:00 12/07/17 11:36 Ondansetron HCl (Zofran Inj) 4 mg Q6H PRN IV PUSH NAUSEA OR VOMITING 12/04/17 00:00 Albuterol/ Ipratropium (Duoneb Neb) 1 ampule Q4HR NEB INH 12/04/17 00:00 12/07/17 12:00 Albuterol/ Ipratropium (Duoneb Neb) 1 ampule Q2HR NEB PRN INH WHEEZING 12/04/17 00:00 Heparin Sodium (Porcine) (Heparin Inj) 5,000 units Q8H SQ 12/04/17 00:00 12/07/17 11:35 Miscellaneous Information 1 Q361D XX 12/04/17 00:00 12/04/17 00:00 Chlorhexidine Gluconate (Chlorhexidine 2% Cloth) 3 pack Taper DAILY@04 TOP 12/04/17 04:00 11/30/18 03:59 12/07/17 04:00 Chlorhexidine Gluconate (Chlorhexidine 2% Cloth) 3 pack UNSCH PRN TOP HYGIENIC CARE 12/04/17 00:00 Senna/Docusate Sodium (Mili-Colace) 1 tab BID PO 12/04/17 09:00 12/07/17 11:37 Magnesium Hydroxide (Milk Of Magnesia Liq) 30 ml Q12H PRN PO Mild constipation 12/04/17 00:00 Sennosides (Senokot) 17.2 mg Q12H PRN PO Moderate constipation 12/04/17 00:00 Bisacodyl (Dulcolax Supp) 10 mg DAILY PRN RECTAL SEVERE CONSITIPATION/ IF NPO 12/04/17 00:00 Lactulose (Lactulose Liq) 30 ml DAILY PRN PO SEVERE CONSITIPATION/ IF PO 12/04/17 00:00 Cefepime HCl 2000 mg/Sodium Chloride 100 ml @ 200 mls/hr Q12H IV 12/04/17 17:00 12/07/17 05:31 Guaifenesin (Mucinex Er) 600 mg BID PO 12/05/17 14:00 12/07/17 11:40 Sumatriptan Succinate (Imitrex) 25 mg Q8H PRN PO HEADACHE 12/05/17 14:30 12/07/17 12:51 Dextrose (D50w (Vial) Inj) 50 ml UNSCH PRN IV PUSH HYPOGLYCEMIA-SEE COMMENTS 12/05/17 20:00 Glucagon (Glucagon Inj) 1 mg UNSCH PRN OTHER HYPOGLYCEMIA-SEE COMMENTS 12/05/17 20:00 Insulin Aspart (NovoLOG SUPPLEMENTAL SCALE) 1 ACHS SLIDING SCALE SQ 12/05/17 21:00 12/06/17 17:00 Vancomycin HCl 1500 mg/Sodium Chloride 515 ml @ 250 mls/hr Q18H IV 12/06/17 12:00 12/07/17 05:31 Tobramycin Sulfate (Chandra Neb) 300 mg Q12HR NEB NEB 12/06/17 20:00 12/07/17 09:15 Ampicillin Sodium/ Sulbactam Sodium 3 gm/Sodium Chloride 100 ml @ 200 mls/hr Q6H IV 12/06/17 12:30 12/07/17 05:30 Amiodarone HCl (Cordarone) 200 mg DAILY PO 12/07/17 10:00 12/07/17 10:00 Lisinopril (Prinivil) 2.5 mg DAILY PO 12/07/17 12:30 Enalaprilat (Vasotec Inj) 1.25 mg Q8H PRN IV PUSH SBP> OR = 180, DBP> OR = 100 12/07/17 12:30 Miscellaneous (Pill Splitter) 1 ea UNSCH PRN OTHER SEE LABEL COMMENTS 12/07/17 13:45 OBJECTIVE: Vital Signs Date Time Temp Pulse Resp B/P (MAP) Pulse Ox O2 Delivery O2 Flow Rate FiO2 12/07/17 09:04 94 Nasal Cannula 3.00 12/07/17 08:00 56 12/07/17 07:01 97.7 55 19 158/76 (103) 95 12/07/17 07:00 54 12/07/17 06:00 61 12/07/17 04:00 56 12/07/17 04:00 97.9 56 16 136/81 (99) 96 12/07/17 02:00 54 12/07/17 00:00 57 12/07/17 00:00 98.4 57 16 158/80 (106) 97 12/06/17 22:00 61 12/06/17 20:45 64 163/96 12/06/17 20:19 96 Nasal Cannula 3.50 12/06/17 20:00 60 12/06/17 20:00 98.5 60 20 163/96 (118) 96 12/06/17 18:00 62 12/06/17 17:44 98 Nasal Cannula 3.50 12/06/17 16:00 67 12/06/17 16:00 98.0 67 22 167/75 (105) 95 12/06/17 15:00 68 12/06/17 14:00 69 Laboratory Tests Test 12/06/17 05:50 White Blood Count 5.7 TH/MM3 Red Blood Count 4.02 MIL/MM3 Hemoglobin 12.3 GM/DL Hematocrit 37.0 % Mean Corpuscular Volume 92.0 FL Mean Corpuscular Hemoglobin 30.7 PG Mean Corpuscular Hemoglobin Concent 33.4 % Red Cell Distribution Width 16.1 % Platelet Count 88 TH/MM3 Mean Platelet Volume 9.0 FL Neutrophils (%) (Auto) 77.7 % Lymphocytes (%) (Auto) 17.0 % Monocytes (%) (Auto) 3.8 % Eosinophils (%) (Auto) 1.3 % Basophils (%) (Auto) 0.2 % Neutrophils # (Auto) 4.4 TH/MM3 Lymphocytes # (Auto) 1.0 TH/MM3 Monocytes # (Auto) 0.2 TH/MM3 Eosinophils # (Auto) 0.1 TH/MM3 Basophils # (Auto) 0.0 TH/MM3 CBC Comment AUTO DIFF Differential Comment AUTO DIFF CONFIRMED Platelet Estimate LOW Platelet Morphology Comment NORMAL Ovalocytes 1+ Acanthocytes OCC Laboratory Tests Test 12/06/17 05:50 Blood Urea Nitrogen 24 MG/DL Creatinine 1.22 MG/DL Random Glucose 118 MG/DL Total Protein 5.6 GM/DL Albumin 1.9 GM/DL Calcium Level 7.8 MG/DL Phosphorus Level 2.1 MG/DL Magnesium Level 2.0 MG/DL Alkaline Phosphatase 57 U/L Aspartate Amino Transf (AST/SGOT) 11 U/L Alanine Aminotransferase (ALT/SGPT) 14 U/L Total Bilirubin 0.5 MG/DL Sodium Level 143 MEQ/L Potassium Level 4.2 MEQ/L Chloride Level 109 MEQ/L Carbon Dioxide Level 25.0 MEQ/L Anion Gap 9 MEQ/L Estimat Glomerular Filtration Rate 58 ML/MIN Hemoglobin A1c 8.0 % Free Thyroxine 0.89 NG/DL Thyroid Stimulating Hormone 3rd Gen 2.910 uIU/ML Microbiology Date/Time Source Procedure Growth Status 12/04/17 06:12 Blood Peripheral Aerobic Blood Culture - Preliminary NO GROWTH IN 2 DAYS Resulted 12/04/17 06:12 Blood Peripheral Anaerobic Blood Culture - Preliminary NO GROWTH IN 2 DAYS Resulted 12/04/17 13:20 Sputum Expectorated Sputum Acid Fast Stain Pending Received 12/04/17 13:20 Sputum Expectorated Sputum Mycobacterial Culture Pending Received 12/04/17 13:20 Sputum Expectorated Sputum Fungal Smear Pending Received 12/04/17 13:20 Sputum Expectorated Sputum Fungal Culture Pending Received 12/04/17 13:20 Sputum Expectorated Sputum Gram Stain - Final Resulted 12/04/17 13:20 Sputum Culture - Preliminary Acinetobacter Baumannii/Haemol Multi-Drug Resistant Resulted IMAGING: Chest X-Ray 12/05/17 0600 Signed Impressions: Service Date/Time: Tuesday, December 05, 2017 04:23 - CONCLUSION: Improving aeration in the right upper and left lower lobes Percy Ferraro MD Chest X-Ray 12/04/17 0000 Signed Impressions: Service Date/Time: Monday, December 04, 2017 03:22 - CONCLUSION: 1. Worsening consolidation in the left base with developing infiltrate in the right upper lung. 2. Cardiomegaly. Percy Ferraro MD CT Angiography 12/03/17 194 Signed Impressions: Service Date/Time: Sunday, December 03, 2017 22:54 - CONCLUSION: 1. Somewhat limited exam of minimal contrast in the pulmonary artery. No large central pulmonary embolus, however. 2. However, oblique patient's symptoms are probably related to worsening pneumonic infiltrates. New interstitial process posteriorly in the right upper lobe with areas of consolidation in both lung bases, left worse than right. Percy Ferraro MD PHYSICAL EXAMINATION: GENERAL: Patient currently on oxygen via nasal cannula. HEENT: No icterus. No conjunctival erythema. NECK: Supple without adenopathy. LUNGS: Coarse bilateral breath. HEART: Irregular rate and rhythm. No audible murmur. No rubs or gallops. ABDOMEN: Obese, soft, decreased bowel sounds. No tenderness. EXTREMITIES: No clubbing, cyanosis or edema. SKIN: No rash. NEUROLOGIC: No gross focal findings. PSYCHIATRIC: Calm and cooperative. IMPRESSION: 1. Pneumonia. HCAP. Previously failed antibiotic treatment Sputum culture has multidrug-resistant Acinetobacter. Organism resistant to Avycaz and Zerbaxa. 2. Hypoxemia requiring BiPAP. 3. Leukocytosis. WBC lower. 4. Chronic kidney disease. RECOMMENDATIONS: 1. Stop cefepime. 2. Continue Unasyn. 3. Continue fluconazole. 4. Continue aerosolized tobramycin. 5. Monitor temperature. 6. Monitor clinical status. Mack Hodgson MD Dec 07, 2017 13:48
--- NOTE | 2017-12-07 16:04 | EKG ---
Date Performed: 12/06/2017 Time Performed: 14:07:31 PTAGE: 77 years EKG: Sinus rhythm WITH FREQUENT SUPRAVENTRICULAR PREMATURE COMPLEXES POSSIBLE INFERIOR MYOCARDIAL INFARCTION ABNORMAL ECG PREVIOUS TRACING : 12/05/2017 11.16 Compared to previous tracing, sinus rhythm has replaced sup raventricular tachycardia. DOCTOR: Gurpreet Teran Interpretating Date/Time 12/07/2017 16:03:32
[2017-12-07] MEDS: LISINOPRIL 5 MG TAB PO SCH (16:18)
[2017-12-07] MEDS: SODIUM CHLORIDE 0.9% FLUSH 10 ML FLUSH IV FLUSH SCH ×2 (16:18→21:36)
--- NOTE | 2017-12-07 16:56 | PD.CARD.PN ---
Subjective Subjective Remarks Pt feeling a little better Objective Medications Current Medications Medications (Trade) Dose Ordered Sig/Nilsa Route Start Time Stop Time Status Last Admin (Aspirin Chew) 81 mg DAILY CHEW 12/04/17 09:00 12/07/17 11:36 (Sinemet 25-100 Mg) 1 tab Q8HR PO 12/04/17 06:00 12/07/17 16:17 (Aricept) 10 mg HS PO 12/04/17 21:00 12/06/17 20:44 (Cymbalta Dr) 60 mg DAILY PO 12/04/17 09:00 12/07/17 11:40 (Lexapro) 10 mg DAILY PO 12/04/17 09:00 12/07/17 11:35 (Diflucan) 200 mg DAILY PO 12/04/17 09:00 12/07/17 11:36 (Glucotrol) 5 mg BID@08,17 PO 12/04/17 08:00 12/06/17 17:00 (Deltasone) 10 mg DAILY PO 12/04/17 09:00 12/07/17 11:36 (Lyrica) 200 mg TID PO 12/04/17 09:00 12/07/17 16:17 (Restoril) 30 mg HS PRN PO 12/03/17 23:45 12/06/17 21:03 (Topamax) 25 mg BID PO 12/04/17 09:00 12/07/17 11:35 Patient Own Medication PT OWN MED: LINZ... DAILY PO 12/04/17 09:00 12/07/17 11:34 Patient Own Medication PT OWN MED: MOVAN... DAILY PO 12/04/17 09:00 (Creon 24-76-120) 1 cap TIDPC PO 12/04/17 09:30 12/07/17 16:17 (NS Flush) 2 ml UNSCH PRN IV FLUSH 12/04/17 00:00 (NS Flush) 2 ml BID IV FLUSH 12/04/17 09:00 12/07/17 16:18 (Tylenol) 650 mg Q6H PRN PO 12/04/17 00:00 12/05/17 04:11 (Pepcid Inj) 20 mg Q12HR IV PUSH 12/04/17 09:00 12/07/17 11:36 (Zofran Inj) 4 mg Q6H PRN IV PUSH 12/04/17 00:00 (Duoneb Neb) 1 ampule Q4HR NEB INH 12/04/17 00:00 12/07/17 12:00 (Duoneb Neb) 1 ampule Q2HR NEB PRN INH 12/04/17 00:00 (Heparin Inj) 5,000 units Q8H SQ 12/04/17 00:00 12/07/17 16:20 Miscellaneous Information 1 Q361D XX 12/04/17 00:00 12/04/17 00:00 (Chlorhexidine 2% Cloth) 3 pack Taper DAILY@04 TOP 12/04/17 04:00 11/30/18 03:59 12/07/17 04:00 (Chlorhexidine 2% Cloth) 3 pack UNSCH PRN TOP 12/04/17 00:00 (Mili-Colace) 1 tab BID PO 12/04/17 09:00 12/07/17 11:37 (Milk Of Magnesia Liq) 30 ml Q12H PRN PO 12/04/17 00:00 (Senokot) 17.2 mg Q12H PRN PO 12/04/17 00:00 (Dulcolax Supp) 10 mg DAILY PRN RECTAL 12/04/17 00:00 (Lactulose Liq) 30 ml DAILY PRN PO 12/04/17 00:00 Cefepime HCl 2000 mg/Sodium Chloride 100 ml @ 200 mls/hr Q12H IV 12/04/17 17:00 12/07/17 05:31 (Mucinex Er) 600 mg BID PO 12/05/17 14:00 12/07/17 11:40 (Imitrex) 25 mg Q8H PRN PO 12/05/17 14:30 12/07/17 12:51 (D50w (Vial) Inj) 50 ml UNSCH PRN IV PUSH 12/05/17 20:00 (Glucagon Inj) 1 mg UNSCH PRN OTHER 12/05/17 20:00 (NovoLOG SUPPLEMENTAL SCALE) 1 ACHS SLIDING SCALE SQ 12/05/17 21:00 12/06/17 17:00 Vancomycin HCl 1500 mg/Sodium Chloride 515 ml @ 250 mls/hr Q18H IV 12/06/17 12:00 12/07/17 05:31 (Chandra Neb) 300 mg Q12HR NEB NEB 12/06/17 20:00 12/07/17 09:15 Ampicillin Sodium/ Sulbactam Sodium 3 gm/Sodium Chloride 100 ml @ 200 mls/hr Q6H IV 12/06/17 12:30 12/07/17 16:18 (Cordarone) 200 mg DAILY PO 12/07/17 10:00 12/07/17 10:00 (Prinivil) 2.5 mg DAILY PO 12/07/17 12:30 12/07/17 16:18 (Vasotec Inj) 1.25 mg Q8H PRN IV PUSH 12/07/17 12:30 (Pill Splitter) 1 ea UNSCH PRN OTHER 12/07/17 13:45 Vital Signs / I&O Vital Signs Date Time Temp Pulse Resp B/P (MAP) Pulse Ox O2 Delivery O2 Flow Rate FiO2 12/07/17 14:01 64 20 139/80 (99) 91 12/07/17 13:51 18 12/07/17 13:01 59 19 169/77 (107) 91 12/07/17 12:00 98.1 56 19 172/78 (109) 95 12/07/17 11:00 59 20 160/77 (104) 94 12/07/17 10:01 64 17 150/69 (96) 93 12/07/17 09:04 61 14 151/73 (99) 88 12/07/17 09:04 94 Nasal Cannula 3.00 12/07/17 08:03 52 19 177/91 (119) 92 12/07/17 08:00 56 12/07/17 07:01 97.7 55 19 158/76 (103) 95 12/07/17 07:00 54 12/07/17 06:00 61 12/07/17 04:00 56 12/07/17 04:00 97.9 56 16 136/81 (99) 96 12/07/17 02:00 54 12/07/17 00:00 57 12/07/17 00:00 98.4 57 16 158/80 (106) 97 12/06/17 22:00 61 12/06/17 20:45 64 163/96 12/06/17 20:19 96 Nasal Cannula 3.50 12/06/17 20:00 60 12/06/17 20:00 98.5 60 20 163/96 (118) 96 12/06/17 18:00 62 12/06/17 17:44 98 Nasal Cannula 3.50 I/O 12/06/17 12/06/17 12/06/17 12/07/17 12/07/17 12/07/17 07:00 15:00 23:00 07:00 15:00 23:00 Intake Total 877 ml 600 ml 950 ml 600 ml Output Total 2000 ml 2500 ml 2960 ml Balance -1123 ml 600 ml -1550 ml -2360 ml Intake Oral 380 ml 500 ml 300 ml IV Total 497 ml 600 ml 450 ml 300 ml Output Urine Total 2000 ml 2500 ml 2960 ml # Voids 5 5 6 # Bowel Movements 1 0 0 Physical Exam GENERAL: Well developed, well nourished. No acute distress. HEENT: Jugular venous pressure is normal. CHEST: Lungs rhonchi bilaterally. Unlabored respiratory effort. CARDIAC: irregular rate and rhythm without S3, S4, or murmur. ABDOMEN: Soft, nontender, no hepatosplenomegaly. Bowel sounds present. EXTREMITIES: No clubbing, cyanosis, or edema. Imaging Last 72 hours Impressions Chest X-Ray 12/05/17 0600 Signed Impressions: Service Date/Time: Tuesday, December 05, 2017 04:23 - CONCLUSION: Improving aeration in the right upper and left lower lobes Percy Ferraro MD Assessment and Plan Assessment and Plan WCT- pt with normal LV function last month on ECHO; on amio - change to PO today -BB felt relatively contraindicated secondary to his poor respiratory status -poor revasc candidate at this time, agree with medical management for now HTN- agree with restart lisinopril Pneumonia- per primary team Aysha Somers MD Dec 07, 2017 16:56
[2017-12-07] MEDS: DONEPEZIL HCL 5 MG TAB PO SCH (21:35)
[2017-12-07] MEDS: ACETAMINOPHEN 325 MG TAB PO PRN (21:53)
[2017-12-07] MEDS ORDERED: PHARMACY ORDERED LAB ONE (23:45)
[2017-12-08] VITALS (14 sets, daily range): BP systolic 145–170; BP diastolic 75–96; PULSE 56–94; RESP 15–27; TEMP 97.6–98.5; O2SAT 93–96
[2017-12-08] MEDS: HEPARIN SODIUM - SQ 10,000 UNITS/ML VIAL SQ SCH ×3 (00:11→17:33)
[2017-12-08] MEDS: AMPICILLIN-SULBACTAM INJ 3 GM in SODIUM CHLORIDE 0.9% INJ 100 ML IV SCH ×4 (00:11→17:32)
[2017-12-08] MEDS: VANCOMYCIN INJ 1,500 MG in SODIUM CHLORID 0.9% 500 ML INJ 500 ML IV SCH ×2 (00:11→17:34)
[2017-12-08] MEDS: CHLORHEXIDINE GLUCONATE 2 % 1 PACK (2 CLOTHS) TOP SCH (04:00)
[2017-12-08] MEDS: CARBIDOPA/LEVODOPA 25 MG/100 MG TAB PO SCH ×3 (05:21→20:52)
[2017-12-08] MEDS: CEFEPIME INJ 2,000 MG in SODIUM CHLORIDE 0.9% INJ 100 ML IV SCH (05:21)
[2017-12-08] MEDS: SUMAtriptan SUCCINATE 25 MG TAB PO PRN ×3 (05:29→10:51)
[2017-12-08] MEDS: ACETAMINOPHEN 325 MG TAB PO PRN (05:39)
--- NOTE | 2017-12-08 07:39 | EKG ---
Date Performed: 12/07/2017 Time Performed: 07:11:13 PTAGE: 77 years EKG: SINUS BRADYCARDIA WITH FIRST DEGREE AV BLOCK WITH FREQUENT SUPRAVENTRICULAR PREMATURE COMPL EXES NONSPECIFIC INTRAVENTRICULAR CONDUCTION DELAY LEFT VENTRICULAR HYPERTROPHY AND ST-T CHANGE ABNOR MAL ECG PREVIOUS TRACING : 12/06/2017 14.07 No significant change from previous tracing noted. DOCTOR: Gurpreet Teran Interpretating Date/Time 12/10/2017 06:51:41
[2017-12-08] MEDS: INSULIN ASPART SUPPLEMENTAL SCALE SQ SCH ×4 (08:00→20:58)
[2017-12-08 08:07] LABS: AUTOMATED NEUTROPHIL # 4.8 TH/MM3 (1.8-7.7); BASOPHIL % 0.3 % (0.0-2.0); EOSINOPHIL # 0.1 TH/MM3 (0-0.4); EOSINOPHIL % 1.7 % (0.0-4.0); HEMATOCRIT 41.3 % (39.0-51.0); LYMPH % 15.9 % (9.0-44.0); MEAN CELL VOLUME 90.7 FL (80.0-100.0); MEAN CORPUSCULAR HEMOGLOBIN 30.6 PG (27.0-34.0); MEAN CORPUSCULAR HGB CONC 33.8 % (32.0-36.0); MEAN PLATELET VOLUME 9.4 FL (7.0-11.0); MONOCYTE # 0.6 TH/MM3 (0-0.9); NEUT % 73.1 % (16.0-70.0); PLATELET COUNT 96 TH/MM3 (150-450); RED BLOOD COUNT 4.55 MIL/MM3 (4.50-5.90); RED CELL DISTRIBUTION WIDTH 16.1 % (11.6-17.2); WHITE BLOOD COUNT 6.5 TH/MM3 (4.0-11.0)
[2017-12-08 08:30] LABS: BICARBONATE 23.2 MEQ/L (21.0-32.0); CALCIUM 8.4 MG/DL (8.5-10.1); CREATININE 1.15 MG/DL (0.60-1.30); MAGNESIUM 1.8 MG/DL (1.5-2.5)
[2017-12-08] MEDS: LIPASE/PROTEASE/AMYLASE (24,000/76,000/120,000) CAP PO SCH ×3 (08:41→17:33)
[2017-12-08] MEDS: PT OWN LINZESS 145 MCG PO SCH (08:41)
[2017-12-08] MEDS: DULoxetine HCl DR 60 MG CAP PO SCH (08:41)
[2017-12-08] MEDS: SODIUM CHLORIDE 0.9% FLUSH 10 ML FLUSH IV FLUSH SCH ×2 (08:41→20:53)
[2017-12-08] MEDS: PREGABALIN 100 MG CAP PO SCH ×3 (08:42→17:33)
[2017-12-08] MEDS: AMIODARONE 200 MG TAB PO SCH (08:42)
[2017-12-08] MEDS: ESCITALOPRAM OXALATE 10 MG TAB PO SCH (08:42)
[2017-12-08] MEDS: DOCUSATE SODIUM 50 MG/SENNA 8.6 MG TAB PO SCH ×2 (08:42→20:52)
[2017-12-08] MEDS: guaiFENesin E.R. 600 MG TAB PO SCH ×2 (08:42→20:52)
[2017-12-08] MEDS: ASPIRIN 81 MG CHEW TAB CHEW SCH (08:42)
[2017-12-08] MEDS: TOPIRAMATE 25 MG TAB PO SCH ×2 (08:42→20:52)
[2017-12-08] MEDS: FLUCONAZOLE 200 MG TAB PO SCH (08:43)
[2017-12-08] MEDS: glipiZIDE 5 MG TAB PO SCH ×2 (08:43→17:33)
[2017-12-08] MEDS: predniSONE 10 MG TAB PO SCH (08:43)
[2017-12-08] MEDS: FAMOTIDINE 20 MG/2 ML VIAL IV PUSH SCH ×2 (08:44→20:53)
[2017-12-08] MEDS: MOVANTIK 25 MG PO SCH (08:44)
[2017-12-08] MEDS: RESP: ALBUTEROL 2.5 MG/IPRATROPIUM 0.5 MG NEB (PRN) INH (09:15)
[2017-12-08] MEDS: RESP: TOBRAMYCIN SULFATE 300 MG/5 ML NEB NEB SCH ×2 (09:23→18:42)
[2017-12-08] MEDS: LISINOPRIL 5 MG TAB PO SCH (10:45)
--- NOTE | 2017-12-08 12:59 | HHI.IDPN ---
Note Infectious Disease Note Patient has headache. Notes that he has history of migraines. Set up in chair for 4 hours today. Notes that his breathing is better but he still is short of breath. Currently on O2 via nasal cannula. 4 LO2. Less coughing. Afebrile. Reports anterior chest pain. Denies chills. No distress. 77-year-old white male who was recently discharged from the hospital after treatment for pneumonia. The patient was evaluated between 11/14 and 12/02, was discharged after treatment for pneumonia. Cultures obtained during last admission were all negative. The patient went home and states that he was feeling very weak and had difficulty ambulating and shortness of breath and also had no appetite. He presented to the emergency department on 12/03 for evaluation and had to be put on BiPAP. Chest x-ray was performed and it showed worsening infiltrates. The patient underwent bronchoscopy on 2 occasions during the last hospitalization and cultures were negative. There were thick, tenacious secretions suctioned from the tracheal tree. The only culture which came back from the bronchoscopy on 11/23/2017 showed Elizabeth albicans. He received treatment with fluconazole and was discharged home on fluconazole and Levaquin. PAST MEDICAL HISTORY: Hypertension, gastroesophageal reflux disease, hyperlipidemia, allergic rhinitis, history of migraine headaches, vasculitis, CVA in 2009, chronic low back pain, spinal stimulator, carotid artery surgery, bilateral knee surgery, osteomyelitis of the left lower extremity in 1964, back fusion. ALLERGIES: NO KNOWN DRUG ALLERGIES. Current Medications Medications (Trade) Dose Ordered Sig/Nilsa Route PRN Reason Start Time Stop Time Status Last Admin Dose Admin Aspirin (Aspirin Chew) 81 mg DAILY CHEW 12/04/17 09:00 12/08/17 08:42 Carbidopa/Levodopa (Sinemet 25-100 Mg) 1 tab Q8HR PO 12/04/17 06:00 12/08/17 05:21 Donepezil HCl (Aricept) 10 mg HS PO 12/04/17 21:00 12/07/17 21:35 Duloxetine HCl (Cymbalta Dr) 60 mg DAILY PO 12/04/17 09:00 12/08/17 08:41 Escitalopram Oxalate (Lexapro) 10 mg DAILY PO 12/04/17 09:00 12/08/17 08:42 Fluconazole (Diflucan) 200 mg DAILY PO 12/04/17 09:00 12/08/17 08:43 Glipizide (Glucotrol) 5 mg BID@08,17 PO 12/04/17 08:00 12/08/17 08:43 Prednisone (Deltasone) 10 mg DAILY PO 12/04/17 09:00 12/08/17 08:43 Pregabalin (Lyrica) 200 mg TID PO 12/04/17 09:00 12/08/17 08:42 Temazepam (Restoril) 30 mg HS PRN PO INSOMNIA 12/03/17 23:45 12/06/17 21:03 Topiramate (Topamax) 25 mg BID PO 12/04/17 09:00 12/08/17 08:42 Patient Own Medication PT OWN MED: LINZ... DAILY PO 12/04/17 09:00 12/08/17 08:41 Patient Own Medication PT OWN MED: MOVAN... DAILY PO 12/04/17 09:00 Amylase/Lipase/ Protease (Creon 24-76-120) 1 cap TIDPC PO 12/04/17 09:30 12/08/17 08:41 Sodium Chloride (NS Flush) 2 ml UNSCH PRN IV FLUSH FLUSH AFTER USING IV ACCESS 12/04/17 00:00 Sodium Chloride (NS Flush) 2 ml BID IV FLUSH 12/04/17 09:00 12/08/17 08:41 Acetaminophen (Tylenol) 650 mg Q6H PRN PO PAIN 1-10 AND/OR FEVER >101F 12/04/17 00:00 12/08/17 05:39 Famotidine (Pepcid Inj) 20 mg Q12HR IV PUSH 12/04/17 09:00 12/08/17 08:44 Ondansetron HCl (Zofran Inj) 4 mg Q6H PRN IV PUSH NAUSEA OR VOMITING 12/04/17 00:00 Albuterol/ Ipratropium (Duoneb Neb) 1 ampule Q2HR NEB PRN INH WHEEZING 12/04/17 00:00 12/08/17 09:15 Heparin Sodium (Porcine) (Heparin Inj) 5,000 units Q8H SQ 12/04/17 00:00 12/08/17 08:44 Miscellaneous Information 1 Q361D XX 12/04/17 00:00 12/04/17 00:00 Chlorhexidine Gluconate (Chlorhexidine 2% Cloth) 3 pack Taper DAILY@04 TOP 12/04/17 04:00 11/30/18 03:59 12/08/17 04:00 Chlorhexidine Gluconate (Chlorhexidine 2% Cloth) 3 pack UNSCH PRN TOP HYGIENIC CARE 12/04/17 00:00 Senna/Docusate Sodium (Mili-Colace) 1 tab BID PO 12/04/17 09:00 12/08/17 08:42 Magnesium Hydroxide (Milk Of Magnesia Liq) 30 ml Q12H PRN PO Mild constipation 12/04/17 00:00 Sennosides (Senokot) 17.2 mg Q12H PRN PO Moderate constipation 12/04/17 00:00 Bisacodyl (Dulcolax Supp) 10 mg DAILY PRN RECTAL SEVERE CONSITIPATION/ IF NPO 12/04/17 00:00 Lactulose (Lactulose Liq) 30 ml DAILY PRN PO SEVERE CONSITIPATION/ IF PO 12/04/17 00:00 Cefepime HCl 2000 mg/Sodium Chloride 100 ml @ 200 mls/hr Q12H IV 12/04/17 17:00 12/08/17 05:21 Guaifenesin (Mucinex Er) 600 mg BID PO 12/05/17 14:00 12/08/17 08:42 Sumatriptan Succinate (Imitrex) 25 mg Q8H PRN PO HEADACHE 12/05/17 14:30 12/08/17 10:51 Dextrose (D50w (Vial) Inj) 50 ml UNSCH PRN IV PUSH HYPOGLYCEMIA-SEE COMMENTS 12/05/17 20:00 Glucagon (Glucagon Inj) 1 mg UNSCH PRN OTHER HYPOGLYCEMIA-SEE COMMENTS 12/05/17 20:00 Insulin Aspart (NovoLOG SUPPLEMENTAL SCALE) 1 ACHS SLIDING SCALE SQ 12/05/17 21:00 12/07/17 21:00 Vancomycin HCl 1500 mg/Sodium Chloride 515 ml @ 250 mls/hr Q18H IV 12/06/17 12:00 12/08/17 00:11 Tobramycin Sulfate (Chandra Neb) 300 mg Q12HR NEB NEB 12/06/17 20:00 12/08/17 09:23 Ampicillin Sodium/ Sulbactam Sodium 3 gm/Sodium Chloride 100 ml @ 200 mls/hr Q6H IV 12/06/17 12:30 12/08/17 05:22 Amiodarone HCl (Cordarone) 200 mg DAILY PO 12/07/17 10:00 12/08/17 08:42 Lisinopril (Prinivil) 2.5 mg DAILY PO 12/07/17 12:30 12/08/17 10:45 Enalaprilat (Vasotec Inj) 1.25 mg Q8H PRN IV PUSH SBP> OR = 180, DBP> OR = 100 12/07/17 12:30 Miscellaneous (Pill Splitter) 1 ea UNSCH PRN OTHER SEE LABEL COMMENTS 12/07/17 13:45 OBJECTIVE: Vital Signs Date Time Temp Pulse Resp B/P (MAP) Pulse Ox O2 Delivery O2 Flow Rate FiO2 12/08/17 10:00 70 12/08/17 09:42 22 12/08/17 09:40 22 12/08/17 09:16 93 Nasal Cannula 4.00 12/08/17 08:00 89 12/08/17 08:00 97.8 56 27 170/80 (110) 93 12/08/17 06:00 65 12/08/17 04:00 98.5 66 15 166/75 (105) 94 12/08/17 04:00 66 12/08/17 02:00 65 12/08/17 00:00 98.3 73 16 153/95 (114) 93 12/08/17 00:00 73 12/07/17 22:16 94 Nasal Cannula 4.00 12/07/17 22:00 70 12/07/17 20:00 98.7 63 25 166/79 (108) 93 12/07/17 20:00 63 12/07/17 18:00 59 19 180/84 (116) 95 12/07/17 18:00 59 12/07/17 17:00 57 12/07/17 17:00 98.1 57 24 177/79 (111) 95 12/07/17 16:00 62 21 164/78 (106) 94 12/07/17 16:00 62 12/07/17 15:00 59 12/07/17 14:01 64 20 139/80 (99) 91 12/07/17 14:00 64 12/07/17 13:01 59 19 169/77 (107) 91 12/07/17 13:00 58 Laboratory Tests Test 12/08/17 06:37 White Blood Count 6.5 TH/MM3 Red Blood Count 4.55 MIL/MM3 Hemoglobin 14.0 GM/DL Hematocrit 41.3 % Mean Corpuscular Volume 90.7 FL Mean Corpuscular Hemoglobin 30.6 PG Mean Corpuscular Hemoglobin Concent 33.8 % Red Cell Distribution Width 16.1 % Platelet Count 96 TH/MM3 Mean Platelet Volume 9.4 FL Neutrophils (%) (Auto) 73.1 % Lymphocytes (%) (Auto) 15.9 % Monocytes (%) (Auto) 9.0 % Eosinophils (%) (Auto) 1.7 % Basophils (%) (Auto) 0.3 % Neutrophils # (Auto) 4.8 TH/MM3 Lymphocytes # (Auto) 1.0 TH/MM3 Monocytes # (Auto) 0.6 TH/MM3 Eosinophils # (Auto) 0.1 TH/MM3 Basophils # (Auto) 0.0 TH/MM3 CBC Comment AUTO DIFF Differential Comment AUTO DIFF CONFIRMED Platelet Estimate LOW Platelet Morphology Comment NORMAL Laboratory Tests Test 12/08/17 06:37 Blood Urea Nitrogen 20 MG/DL Creatinine 1.15 MG/DL Random Glucose 145 MG/DL Calcium Level 8.4 MG/DL Magnesium Level 1.8 MG/DL Sodium Level 141 MEQ/L Potassium Level 3.7 MEQ/L Chloride Level 107 MEQ/L Carbon Dioxide Level 23.2 MEQ/L Anion Gap 11 MEQ/L Estimat Glomerular Filtration Rate 62 ML/MIN IMAGING: Chest X-Ray 12/05/17 0600 Signed Impressions: Service Date/Time: Tuesday, December 05, 2017 04:23 - CONCLUSION: Improving aeration in the right upper and left lower lobes Percy Ferraro MD Chest X-Ray 12/04/17 0000 Signed Impressions: Service Date/Time: Monday, December 04, 2017 03:22 - CONCLUSION: 1. Worsening consolidation in the left base with developing infiltrate in the right upper lung. 2. Cardiomegaly. Percy Ferraro MD CT Angiography 12/03/17 194 Signed Impressions: Service Date/Time: Sunday, December 03, 2017 22:54 - CONCLUSION: 1. Somewhat limited exam of minimal contrast in the pulmonary artery. No large central pulmonary embolus, however. 2. However, oblique patient's symptoms are probably related to worsening pneumonic infiltrates. New interstitial process posteriorly in the right upper lobe with areas of consolidation in both lung bases, left worse than right. Percy Ferraro MD PHYSICAL EXAMINATION: GENERAL: No acute distress HEENT: No icterus. No conjunctival erythema. Oropharynx: moist mucosa. NECK: Supple without adenopathy. LUNGS: Coarse bilateral breath. Better air movement on the left. HEART: Irregular rate and rhythm. No audible murmur. No rubs or gallops. ABDOMEN: Obese, soft, decreased bowel sounds. No tenderness. EXTREMITIES: No clubbing, cyanosis or edema. SKIN: No rash. NEUROLOGIC: No gross focal findings. PSYCHIATRIC: Calm and cooperative. IMPRESSION: 1. Pneumonia. HCAP. Previously failed antibiotic treatment Sputum culture has multidrug-resistant Acinetobacter. Organism resistant to Avycaz and Zerbaxa. 2. Hypoxemia requiring BiPAP. 3. Leukocytosis. WBC lower. 4. Chronic kidney disease. RECOMMENDATIONS: 1. Stop cefepime. 2. Continue Unasyn. 3. Continue fluconazole. 4. Continue aerosol tobramycin. 5. Monitor temperature. 6. Monitor clinical status. Mack Hodgosn MD Dec 08, 2017 12:59
[2017-12-08] MEDS ORDERED: SUMAtriptan INJ 6 MG/0.5 ML VIAL SQ ONE (14:15)
--- NOTE | 2017-12-08 17:26 | HHI.PR ---
Subjective Remarks Follow-up pneumonia, atrial fibrillation. Patient had a migraine headache today. Is doing better after he received subcutaneous Imitrex. Overall he states that he feels better today. Objective Vitals Vital Signs Date Time Temp Pulse Resp B/P (MAP) Pulse Ox O2 Delivery O2 Flow Rate FiO2 12/08/17 16:00 97.9 64 166/96 (119) 12/08/17 16:00 64 12/08/17 14:36 20 12/08/17 14:00 71 12/08/17 12:00 97.8 94 22 148/78 (101) 96 12/08/17 12:00 94 12/08/17 11:51 22 12/08/17 10:00 70 12/08/17 09:16 93 Nasal Cannula 4.00 12/08/17 08:00 89 12/08/17 08:00 97.8 56 27 170/80 (110) 93 12/08/17 06:00 65 12/08/17 04:00 98.5 66 15 166/75 (105) 94 12/08/17 04:00 66 12/08/17 02:00 65 12/08/17 00:00 98.3 73 16 153/95 (114) 93 12/08/17 00:00 73 12/07/17 22:16 94 Nasal Cannula 4.00 12/07/17 22:00 70 12/07/17 20:00 98.7 63 25 166/79 (108) 93 12/07/17 20:00 63 12/07/17 18:00 59 19 180/84 (116) 95 12/07/17 18:00 59 I/O 12/07/17 12/07/17 12/07/17 12/08/17 12/08/17 12/08/17 07:00 15:00 23:00 07:00 15:00 23:00 Intake Total 600 ml 1535 ml 1090 ml Output Total 2960 ml 3000 ml 1780 ml Balance -2360 ml -1465 ml -690 ml Intake Oral 300 ml 720 ml 275 ml IV Total 300 ml 815 ml 815 ml Output Urine Total 2960 ml 3000 ml 1780 ml # Voids 5 6 4 3 # Bowel Movements 0 0 0 0 Result Diagram: 12/08/1763612/08/17636 Imaging Last Impressions Chest X-Ray 3/18/18 0600 Signed Impressions: Service Date/Time: Tuesday, December 05, 2017 04:23 - CONCLUSION: Improving aeration in the right upper and left lower lobes Percy Ferraro MD CT Angiography 12/03/171942 Signed Impressions: Service Date/Time: Sunday, December 03, 2017 22:54 - CONCLUSION: 1. Somewhat limited exam of minimal contrast in the pulmonary artery. No large central pulmonary embolus, however. 2. However, oblique patient's symptoms are probably related to worsening pneumonic infiltrates. New interstitial process posteriorly in the right upper lobe with areas of consolidation in both lung bases, left worse than right. Percy Ferraro MD Objective Remarks General: Elderly male in no acute distress. Heart: Regular rate, irregular rhythm. No murmur. Lungs: Diffuse rhonchi. Breathing is nonlabored. Abdomen: Soft, nontender, nondistended. Extremities: No lower extremity edema. Psych: Alert and oriented. Procedures None Urinary Catheter: No Vascular Central Line Catheter: No A/P Assessment and Plan 1. Respiratory failure secondary to pneumonia: Sputum culture growing multidrug resistant Acinetobacter. Appreciate infectious disease recommendations. Continue special contact, droplet isolation. Continue cefepime, fluconazole, aerosolized tobramycin. BiPAP as needed. Continue supplemental oxygen. Incentive spirometry. 2. Uncontrolled atrial fibrillation: Rate is improved. Possibly worsened by infection. Appreciate cardiology recommendations. Continue oral amiodarone. 3. Depression: Continue escitalopram, Cymbalta. 4. GERD: Pepcid. 5. Memory deficit: Aricept. 6. Migraine headaches: Topamax. 7. Hyperlipidemia: Resume statin as outpatient. 8. Chronic pancreatitis: Continue Creon. 9. Parkinson's disease: Continue Sinemet. 10. DVT prophylaxis: SCDs, JOAQUINA hose, heparin. Eduard Escamilla MD Dec 08, 2017 17:26
--- NOTE | 2017-12-08 20:17 | EKG ---
Date Performed: 12/08/2017 Time Performed: 07:05:36 PTAGE: 77 years EKG: Sinus rhythm WITH FIRST DEGREE AV BLOCK WITH FREQUENT SUPRAVENTRICULAR PREMATURE COMPLEXES INTRAVENTRICULAR CONDU CTION DELAY INFERIOR MYOCARDIAL INFARCTION , PROBABLY OLD ABNORMAL ECG PREVIOUS TRACING : 12/07/2017 07.11 Since the previous tracing, no significant change noted DOCTOR: Andrea Elliott Interpretating Date/Time 12/08/2017 20:15:38
[2017-12-08] MEDS: DONEPEZIL HCL 5 MG TAB PO SCH (20:52)
[2017-12-09] VITALS (19 sets, daily range): BP systolic 130–183; BP diastolic 64–83; PULSE 62–101; RESP 16–29; TEMP 97.9–98.6; O2SAT 89–97
[2017-12-09] MEDS: AMPICILLIN-SULBACTAM INJ 3 GM in SODIUM CHLORIDE 0.9% INJ 100 ML IV SCH ×5 (00:45→23:18)
[2017-12-09] MEDS: HEPARIN SODIUM - SQ 10,000 UNITS/ML VIAL SQ SCH ×4 (00:45→23:07)
[2017-12-09] MEDS: TEMAZEPAM 15 MG CAP PO PRN ×2 (00:54→22:07)
[2017-12-09] MEDS: CARBIDOPA/LEVODOPA 25 MG/100 MG TAB PO SCH ×3 (06:30→20:19)
[2017-12-09] MEDS: INSULIN ASPART SUPPLEMENTAL SCALE SQ SCH ×4 (08:00→20:19)
[2017-12-09] MEDS: RESP: ALBUTEROL 2.5 MG/IPRATROPIUM 0.5 MG NEB (PRN) INH (08:30)
[2017-12-09] MEDS: PREGABALIN 100 MG CAP PO SCH ×3 (08:43→17:25)
[2017-12-09] MEDS: DOCUSATE SODIUM 50 MG/SENNA 8.6 MG TAB PO SCH ×2 (08:43→20:18)
[2017-12-09] MEDS: LIPASE/PROTEASE/AMYLASE (24,000/76,000/120,000) CAP PO SCH ×3 (08:43→18:06)
[2017-12-09] MEDS: ESCITALOPRAM OXALATE 10 MG TAB PO SCH (08:44)
[2017-12-09] MEDS: predniSONE 10 MG TAB PO SCH (08:44)
[2017-12-09] MEDS: glipiZIDE 5 MG TAB PO SCH ×2 (08:44→17:24)
[2017-12-09] MEDS: TOPIRAMATE 25 MG TAB PO SCH ×2 (08:44→20:18)
[2017-12-09] MEDS: AMIODARONE 200 MG TAB PO SCH (08:44)
[2017-12-09] MEDS: ASPIRIN 81 MG CHEW TAB CHEW SCH (08:44)
[2017-12-09] MEDS: FLUCONAZOLE 200 MG TAB PO SCH (08:44)
[2017-12-09] MEDS: guaiFENesin E.R. 600 MG TAB PO SCH ×2 (08:44→20:18)
[2017-12-09] MEDS: DULoxetine HCl DR 60 MG CAP PO SCH (08:48)
[2017-12-09] MEDS: FAMOTIDINE 20 MG/2 ML VIAL IV PUSH SCH ×2 (09:00→20:17)
[2017-12-09] MEDS: LISINOPRIL 5 MG TAB PO SCH (09:00)
[2017-12-09] MEDS: MOVANTIK 25 MG PO SCH (09:00)
[2017-12-09] MEDS: SODIUM CHLORIDE 0.9% FLUSH 10 ML FLUSH IV FLUSH SCH ×2 (09:00→20:17)
[2017-12-09] MEDS: RESP: TOBRAMYCIN SULFATE 300 MG/5 ML NEB NEB SCH ×2 (09:05→22:20)
[2017-12-09] MEDS: VANCOMYCIN INJ 1,500 MG in SODIUM CHLORID 0.9% 500 ML INJ 500 ML IV SCH (12:18)
[2017-12-09] MEDS: SUMAtriptan INJ 6 MG/0.5 ML VIAL SQ PRN (12:20)
--- NOTE | 2017-12-09 13:48 | HHI.IDPN ---
Note Infectious Disease Note Patient feels okay now. States he had a very bad headache this morning. No other complaints. Feels his breathing is better. Currently on O2 via nasal cannula. 4 LO2. Less coughing. Afebrile. Denies chest pain. Denies chills. 77-year-old white male who was recently discharged from the hospital after treatment for pneumonia. The patient was evaluated between 11/14 and 12/02, was discharged after treatment for pneumonia. Cultures obtained during last admission were all negative. The patient went home and states that he was feeling very weak and had difficulty ambulating and shortness of breath and also had no appetite. He presented to the emergency department on 12/03 for evaluation and had to be put on BiPAP. Chest x-ray was performed and it showed worsening infiltrates. The patient underwent bronchoscopy on 2 occasions during the last hospitalization and cultures were negative. There were thick, tenacious secretions suctioned from the tracheal tree. The only culture which came back from the bronchoscopy on 11/23/2017 showed Elizabeth albicans. He received treatment with fluconazole and was discharged home on fluconazole and Levaquin. PAST MEDICAL HISTORY: Hypertension, gastroesophageal reflux disease, hyperlipidemia, allergic rhinitis, history of migraine headaches, vasculitis, CVA in 2009, chronic low back pain, spinal stimulator, carotid artery surgery, bilateral knee surgery, osteomyelitis of the left lower extremity in 1964, back fusion. ALLERGIES: NO KNOWN DRUG ALLERGIES. Current Medications Medications (Trade) Dose Ordered Sig/Nilsa Route PRN Reason Start Time Stop Time Status Last Admin Dose Admin Aspirin (Aspirin Chew) 81 mg DAILY CHEW 12/04/17 09:00 12/09/17 08:44 Carbidopa/Levodopa (Sinemet 25-100 Mg) 1 tab Q8HR PO 12/04/17 06:00 12/09/17 06:30 Donepezil HCl (Aricept) 10 mg HS PO 12/04/17 21:00 12/08/17 20:52 Duloxetine HCl (Cymbalta Dr) 60 mg DAILY PO 12/04/17 09:00 12/09/17 08:48 Escitalopram Oxalate (Lexapro) 10 mg DAILY PO 12/04/17 09:00 12/09/17 08:44 Fluconazole (Diflucan) 200 mg DAILY PO 12/04/17 09:00 12/09/17 08:44 Glipizide (Glucotrol) 5 mg BID@, PO 12/04/17 08:00 12/09/17 08:44 Prednisone (Deltasone) 10 mg DAILY PO 12/04/17 09:00 12/09/17 08:44 Pregabalin (Lyrica) 200 mg TID PO 12/04/17 09:00 12/09/17 11:08 Temazepam (Restoril) 30 mg HS PRN PO INSOMNIA 12/03/17 23:45 12/09/17 00:54 Topiramate (Topamax) 25 mg BID PO 12/04/17 09:00 12/09/17 08:44 Patient Own Medication PT OWN MED: LINZ... DAILY PO 12/04/17 09:00 12/08/17 08:41 Patient Own Medication PT OWN MED: MOVAN... DAILY PO 12/04/17 09:00 Amylase/Lipase/ Protease (Creon 24-76-120) 1 cap TIDPC PO 12/04/17 09:30 12/09/17 12:18 Sodium Chloride (NS Flush) 2 ml UNSCH PRN IV FLUSH FLUSH AFTER USING IV ACCESS 12/04/17 00:00 Sodium Chloride (NS Flush) 2 ml BID IV FLUSH 12/04/17 09:00 12/09/17 09:00 Acetaminophen (Tylenol) 650 mg Q6H PRN PO PAIN 1-10 AND/OR FEVER >101F 12/04/17 00:00 12/08/17 05:39 Famotidine (Pepcid Inj) 20 mg Q12HR IV PUSH 12/04/17 09:00 12/09/17 09:00 Ondansetron HCl (Zofran Inj) 4 mg Q6H PRN IV PUSH NAUSEA OR VOMITING 12/04/17 00:00 Albuterol/ Ipratropium (Duoneb Neb) 1 ampule Q2HR NEB PRN INH WHEEZING 12/04/17 00:00 12/09/17 08:30 Heparin Sodium (Porcine) (Heparin Inj) 5,000 units Q8H SQ 12/04/17 00:00 12/09/17 08:43 Miscellaneous Information 1 Q361D XX 12/04/17 00:00 12/04/17 00:00 Chlorhexidine Gluconate (Chlorhexidine 2% Cloth) Taper DAILY@04 TOP 12/04/17 04:00 11/30/18 03:59 12/08/17 04:00 Chlorhexidine Gluconate (Chlorhexidine 2% Cloth) 3 pack UNSCH PRN TOP HYGIENIC CARE 12/04/17 00:00 Senna/Docusate Sodium (Mili-Colace) 1 tab BID PO 12/04/17 09:00 12/09/17 08:43 Magnesium Hydroxide (Milk Of Magnesia Liq) 30 ml Q12H PRN PO Mild constipation 12/04/17 00:00 Sennosides (Senokot) 17.2 mg Q12H PRN PO Moderate constipation 12/04/17 00:00 Bisacodyl (Dulcolax Supp) 10 mg DAILY PRN RECTAL SEVERE CONSITIPATION/ IF NPO 12/04/17 00:00 Lactulose (Lactulose Liq) 30 ml DAILY PRN PO SEVERE CONSITIPATION/ IF PO 12/04/17 00:00 Guaifenesin (Mucinex Er) 600 mg BID PO 12/05/17 14:00 12/09/17 08:44 Dextrose (D50w (Vial) Inj) 50 ml UNSCH PRN IV PUSH HYPOGLYCEMIA-SEE COMMENTS 12/05/17 20:00 Glucagon (Glucagon Inj) 1 mg UNSCH PRN OTHER HYPOGLYCEMIA-SEE COMMENTS 12/05/17 20:00 Insulin Aspart (NovoLOG SUPPLEMENTAL SCALE) 1 ACHS SLIDING SCALE SQ 12/05/17 21:00 12/09/17 12:00 Vancomycin HCl 1500 mg/Sodium Chloride 515 ml @ 250 mls/hr Q18H IV 12/06/17 12:00 12/09/17 12:18 Tobramycin Sulfate (Chandra Neb) 300 mg Q12HR NEB NEB 12/06/17 20:00 12/09/17 09:05 Ampicillin Sodium/ Sulbactam Sodium 3 gm/Sodium Chloride 100 ml @ 200 mls/hr Q6H IV 12/06/17 12:30 12/09/17 12:18 Amiodarone HCl (Cordarone) 200 mg DAILY PO 12/07/17 10:00 12/09/17 08:44 Lisinopril (Prinivil) 2.5 mg DAILY PO 12/07/17 12:30 12/09/17 09:00 Enalaprilat (Vasotec Inj) 1.25 mg Q8H PRN IV PUSH SBP> OR = 180, DBP> OR = 100 12/07/17 12:30 12/09/17 00:45 Miscellaneous (Pill Splitter) 1 ea UNSCH PRN OTHER SEE LABEL COMMENTS 12/07/17 13:45 Sumatriptan Succinate (Imitrex Inj) 6 mg UNSCH PRN SQ MIGRAINE HEADACHE 12/09/17 09:00 12/09/17 12:20 OBJECTIVE: Vital Signs Date Time Temp Pulse Resp B/P (MAP) Pulse Ox O2 Delivery O2 Flow Rate FiO2 12/09/17 12:00 98.0 65 19 147/64 (91) 92 12/09/17 12:00 63 12/09/17 10:00 63 12/09/17 08:00 63 12/09/17 08:00 98.0 101 19 133/67 (89) 92 12/09/17 06:00 69 12/09/17 04:04 91 Nasal Cannula 4.00 12/09/17 04:00 66 12/09/17 04:00 97.9 66 19 154/70 (98) 92 12/09/17 02:00 64 12/09/17 00:00 98.0 69 21 183/83 (116) 91 12/09/17 00:00 69 12/08/17 22:00 63 12/08/17 20:00 63 12/08/17 20:00 97.6 63 20 145/76 (99) 94 12/08/17 18:44 94 Nasal Cannula 4.00 12/08/17 18:33 20 12/08/17 18:00 65 12/08/17 16:00 97.9 64 166/96 (119) 12/08/17 16:00 64 12/08/17 14:00 71 Laboratory Tests Test 12/08/17 06:37 White Blood Count 6.5 TH/MM3 Red Blood Count 4.55 MIL/MM3 Hemoglobin 14.0 GM/DL Hematocrit 41.3 % Mean Corpuscular Volume 90.7 FL Mean Corpuscular Hemoglobin 30.6 PG Mean Corpuscular Hemoglobin Concent 33.8 % Red Cell Distribution Width 16.1 % Platelet Count 96 TH/MM3 Mean Platelet Volume 9.4 FL Neutrophils (%) (Auto) 73.1 % Lymphocytes (%) (Auto) 15.9 % Monocytes (%) (Auto) 9.0 % Eosinophils (%) (Auto) 1.7 % Basophils (%) (Auto) 0.3 % Neutrophils # (Auto) 4.8 TH/MM3 Lymphocytes # (Auto) 1.0 TH/MM3 Monocytes # (Auto) 0.6 TH/MM3 Eosinophils # (Auto) 0.1 TH/MM3 Basophils # (Auto) 0.0 TH/MM3 CBC Comment AUTO DIFF Differential Comment AUTO DIFF CONFIRMED Platelet Estimate LOW Platelet Morphology Comment NORMAL Laboratory Tests Test 12/08/17 06:37 Blood Urea Nitrogen 20 MG/DL Creatinine 1.15 MG/DL Random Glucose 145 MG/DL Calcium Level 8.4 MG/DL Magnesium Level 1.8 MG/DL Sodium Level 141 MEQ/L Potassium Level 3.7 MEQ/L Chloride Level 107 MEQ/L Carbon Dioxide Level 23.2 MEQ/L Anion Gap 11 MEQ/L Estimat Glomerular Filtration Rate 62 ML/MIN IMAGING: Chest X-Ray 12/05/17 0600 Signed Impressions: Service Date/Time: Tuesday, December 05, 2017 04:23 - CONCLUSION: Improving aeration in the right upper and left lower lobes Percy Ferraro MD Chest X-Ray 12/04/17 0000 Signed Impressions: Service Date/Time: Monday, December 04, 2017 03:22 - CONCLUSION: 1. Worsening consolidation in the left base with developing infiltrate in the right upper lung. 2. Cardiomegaly. Percy Ferraro MD CT Angiography 12/03/17 194 Signed Impressions: Service Date/Time: Sunday, December 03, 2017 22:54 - CONCLUSION: 1. Somewhat limited exam of minimal contrast in the pulmonary artery. No large central pulmonary embolus, however. 2. However, oblique patient's symptoms are probably related to worsening pneumonic infiltrates. New interstitial process posteriorly in the right upper lobe with areas of consolidation in both lung bases, left worse than right. Percy Ferraro MD PHYSICAL EXAMINATION: GENERAL: Patient currently on oxygen via nasal cannula. HEENT: No icterus. No conjunctival erythema. NECK: Supple without adenopathy. LUNGS: Bilateral rhonchi. Better air movement. HEART: Irregular rate and rhythm. No audible murmur. No rubs or gallops. ABDOMEN: Obese, soft, decreased bowel sounds. EXTREMITIES: No clubbing, cyanosis or edema. SKIN: No rash. NEUROLOGIC: No gross focal findings. PSYCHIATRIC: Calm and cooperative. IMPRESSION: 1. Pneumonia. HCAP. Previously failed antibiotic treatment Multidrug-resistant Acinetobacter. Organism resistant to Avycaz and Zerbaxa. 2. Hypoxemia requiring BiPAP. 3. Leukocytosis. WBC lower. 4. Chronic kidney disease. RECOMMENDATIONS: 1. Stop vancomycin 2. Continue Unasyn. 3. Stop fluconazole. 4. Continue aerosolized tobramycin. 5. Monitor temperature. 6. Monitor clinical status. 7. Repeat chest x-ray. Mack Hodgson MD Dec 09, 2017 13:48
--- NOTE | 2017-12-09 14:53 | RADRPT ---
EXAM DATE/TIME: 12/09/2017 14:04 [facility] COMPARISON: CHEST SINGLE AP, December 05, 2017, 4:23. INDICATIONS : Pneumonia. MEDICAL HISTORY : Cardiovascular disease. Diabetes mellitus type II. SURGICAL HISTORY : Carotid endarterectomy. ENCOUNTER: Initial ACUITY: 1 month PAIN SCORE: 5/10 LOCATION: Bilateral chest FINDINGS: One persistent left pleural effusion. Slight neural clearance of consolidative change in the left bas e. Right lung remains stable with slight cerebral fluid or atelectasis in the midlung and mild suprah ilar parenchymal opacity. Cardiac contour is grossly stable. CONCLUSION: Slight improvement in aeration at the left lung base. Kwadwo Luz MD on December 09, 2017 at 14:50 Board Certified Radiologist. This report was verified electronically.
--- NOTE | 2017-12-09 15:39 | HHI.PR ---
Subjective Remarks Follow-up pneumonia, atrial fibrillation. The patient states that he is feeling better today. Still having headache, but not as severe as yesterday. Shortness of breath improving. No chest pain. Family member at bedside believes that the patient's speech is abnormal. He does not feel there is any issue. He denies numbness, tingling, weakness of his extremities. Objective Vitals Vital Signs Date Time Temp Pulse Resp B/P (MAP) Pulse Ox O2 Delivery O2 Flow Rate FiO2 12/09/17 12:00 98.0 65 19 147/64 (91) 92 12/09/17 12:00 63 12/09/17 10:00 63 12/09/17 08:00 63 12/09/17 08:00 98.0 101 19 133/67 (89) 92 12/09/17 06:00 69 12/09/17 04:04 91 Nasal Cannula 4.00 12/09/17 04:00 66 12/09/17 04:00 97.9 66 19 154/70 (98) 92 12/09/17 02:00 64 12/09/17 00:00 98.0 69 21 183/83 (116) 91 12/09/17 00:00 69 12/08/17 22:00 63 12/08/17 20:00 63 12/08/17 20:00 97.6 63 20 145/76 (99) 94 12/08/17 18:44 94 Nasal Cannula 4.00 12/08/17 18:33 20 12/08/17 18:00 65 12/08/17 16:00 97.9 64 166/96 (119) 12/08/17 16:00 64 I/O 12/08/17 12/08/17 12/08/17 12/09/17 12/09/17 12/09/17 07:00 15:00 23:00 07:00 15:00 23:00 Intake Total 1090 ml 100 ml 1320 ml 600 ml Output Total 1780 ml 1550 ml 1450 ml Balance -690 ml 100 ml -230 ml -850 ml Intake Oral 275 ml 720 ml 500 ml IV Total 815 ml 100 ml 600 ml 100 ml Output Urine Total 1780 ml 1550 ml 1450 ml # Voids 3 4 5 # Bowel Movements 0 1 0 Result Diagram: 12/08/1737 12/08/1737 Imaging Last Impressions Chest X-Ray 12/09/17 0000 Signed Impressions: Service Date/Time: November 14:04 - CONCLUSION: Slight improvement in aeration at the left lung base. Kwadwo Luz MD CT Angiography 12/03/17 1943 Signed Impressions: Service Date/Time: Sunday, December 03, 2017 22:54 - CONCLUSION: 1. Somewhat limited exam of minimal contrast in the pulmonary artery. No large central pulmonary embolus, however. 2. However, oblique patient's symptoms are probably related to worsening pneumonic infiltrates. New interstitial process posteriorly in the right upper lobe with areas of consolidation in both lung bases, left worse than right. Percy Ferraro MD Objective Remarks General: Elderly male in no acute distress. Heart: Regular rate, irregular rhythm. No murmur. Lungs: Diffuse rhonchi. Breathing is nonlabored. Abdomen: Soft, nontender, nondistended. Extremities: No lower extremity edema. Psych: Alert and oriented. Neuro: Strength is 5/5 in all 4 extremities. Procedures None Urinary Catheter: No Vascular Central Line Catheter: No A/P Assessment and Plan 1. Respiratory failure secondary to pneumonia: Sputum culture growing multidrug resistant Acinetobacter. Appreciate infectious disease recommendations. Continue special contact, droplet isolation. Continue cefepime, fluconazole, aerosolized tobramycin. BiPAP as needed. Continue supplemental oxygen. Incentive spirometry. 2. Uncontrolled atrial fibrillation: Rate is improved. Possibly had been worsened by infection. Appreciate cardiology recommendations. Continue oral amiodarone. 3. Depression: Continue escitalopram, Cymbalta. 4. GERD: Pepcid. 5. Memory deficit: Aricept. 6. Migraine headaches: Topamax. Imitrex subQ as needed. 7. Hyperlipidemia: Resume statin as outpatient. 8. Chronic pancreatitis: Continue Creon. 9. Parkinson's disease: Continue Sinemet. 10. DVT prophylaxis: SCDs, JOAQUINA hose, heparin. Discharge Planning Pending further clinical improvement and infectious disease clearance. Per PT recommendations, patient will need SNF/rehab. Eduard Escamilla MD Dec 09, 2017 15:39
[2017-12-09] MEDS: DONEPEZIL HCL 5 MG TAB PO SCH (20:18)
[2017-12-10] VITALS (13 sets, daily range): BP systolic 118–170; BP diastolic 56–75; PULSE 56–95; RESP 15–16; TEMP 97.6–98.2; O2SAT 89–98
[2017-12-10] MEDS: SUMAtriptan INJ 6 MG/0.5 ML VIAL SQ PRN ×3 (02:12→20:55)
[2017-12-10] MEDS: CARBIDOPA/LEVODOPA 25 MG/100 MG TAB PO SCH ×3 (06:00→21:33)
[2017-12-10] MEDS: AMPICILLIN-SULBACTAM INJ 3 GM in SODIUM CHLORIDE 0.9% INJ 100 ML IV SCH ×3 (06:33→18:08)
[2017-12-10] MEDS: INSULIN ASPART SUPPLEMENTAL SCALE SQ SCH ×4 (08:00→21:00)
[2017-12-10] MEDS: RESP: TOBRAMYCIN SULFATE 300 MG/5 ML NEB NEB SCH ×2 (08:05→20:54)
[2017-12-10] MEDS: PT OWN LINZESS 145 MCG PO SCH ×2 (09:00→13:30)
[2017-12-10] MEDS: guaiFENesin E.R. 600 MG TAB PO SCH ×2 (09:00→21:33)
[2017-12-10] MEDS: MOVANTIK 25 MG PO SCH (09:00)
[2017-12-10] MEDS: DOCUSATE SODIUM 50 MG/SENNA 8.6 MG TAB PO SCH ×2 (09:00→21:33)
[2017-12-10] MEDS: LIPASE/PROTEASE/AMYLASE (24,000/76,000/120,000) CAP PO SCH ×3 (09:06→16:55)
[2017-12-10] MEDS: LISINOPRIL 5 MG TAB PO SCH (09:08)
[2017-12-10] MEDS: DULoxetine HCl DR 60 MG CAP PO SCH (09:09)
[2017-12-10] MEDS: TOPIRAMATE 25 MG TAB PO SCH ×2 (09:09→21:33)
[2017-12-10] MEDS: ASPIRIN 81 MG CHEW TAB CHEW SCH (09:09)
[2017-12-10] MEDS: glipiZIDE 5 MG TAB PO SCH ×2 (09:10→16:55)
[2017-12-10] MEDS: HEPARIN SODIUM - SQ 10,000 UNITS/ML VIAL SQ SCH ×2 (09:10→16:55)
[2017-12-10] MEDS: AMIODARONE 200 MG TAB PO SCH (09:11)
[2017-12-10] MEDS: predniSONE 10 MG TAB PO SCH (09:11)
[2017-12-10] MEDS: FAMOTIDINE 20 MG/2 ML VIAL IV PUSH SCH ×2 (09:11→21:33)
[2017-12-10] MEDS: PREGABALIN 100 MG CAP PO SCH ×3 (09:11→16:55)
[2017-12-10] MEDS: SODIUM CHLORIDE 0.9% FLUSH 10 ML FLUSH IV FLUSH SCH ×2 (09:13→21:33)
[2017-12-10] MEDS: ESCITALOPRAM OXALATE 10 MG TAB PO SCH (10:08)
--- NOTE | 2017-12-10 15:25 | HHI.PR ---
Subjective Remarks Follow up pneumonia. Patient feels more short of breath today. Reports chest pressure, worse with deep breaths. Objective Vitals Vital Signs Date Time Temp Pulse Resp B/P (MAP) Pulse Ox O2 Delivery O2 Flow Rate FiO2 12/10/17 08:06 98 Nasal Cannula 3.00 12/10/17 08:00 82 12/10/17 08:00 97.9 82 170/74 (106) 12/10/17 06:00 62 12/10/17 04:00 98.2 63 16 145/75 (98) 92 12/10/17 04:00 63 12/10/17 02:00 56 12/10/17 00:00 58 12/10/17 00:00 98.0 58 16 118/64 (82) 89 12/09/17 22:21 92 Nasal Cannula 5.00 12/09/17 22:00 66 12/09/17 20:00 70 12/09/17 20:00 98.1 70 20 150/83 (105) 94 12/09/17 18:00 76 12/09/17 16:00 76 12/09/17 16:00 98.6 64 19 133/82 (99) 92 12/09/17 16:00 98.0 65 19 147/64 (91) 92 12/09/17 16:00 62 I/O 12/09/17 12/09/17 12/09/17 12/10/17 12/10/17 12/10/17 07:00 15:00 23:00 07:00 15:00 23:00 Intake Total 600 ml 515 ml 520 ml 400 ml 100 ml Output Total 1450 ml 1550 ml 900 ml Balance -850 ml 515 ml -1030 ml -500 ml 100 ml Intake Oral 500 ml 520 ml 300 ml IV Total 100 ml 515 ml 100 ml 100 ml Output Urine Total 1450 ml 1550 ml 900 ml # Voids 5 5 # Bowel Movements 0 0 Result Diagram: 12/08/1737 12/08/1737 Imaging Last Impressions Chest X-Ray 12/09/17 0000 Signed Impressions: Service Date/Time: November 14:04 - CONCLUSION: Slight improvement in aeration at the left lung base. Kwadwo Luz MD CT Angiography 12/03/171942 Signed Impressions: Service Date/Time: Sunday, December 03, 2017 22:54 - CONCLUSION: 1. Somewhat limited exam of minimal contrast in the pulmonary artery. No large central pulmonary embolus, however. 2. However, oblique patient's symptoms are probably related to worsening pneumonic infiltrates. New interstitial process posteriorly in the right upper lobe with areas of consolidation in both lung bases, left worse than right. Percy Ferraro MD Objective Remarks General: Elderly male in no acute distress. Heart: Regular rate, irregular rhythm. No murmur. Lungs: Diffuse rhonchi. Breathing is nonlabored. Abdomen: Soft, nontender, nondistended. Extremities: No lower extremity edema. Psych: Alert and oriented. Neuro: Speech is normal. Procedures None Urinary Catheter: No Vascular Central Line Catheter: No A/P Assessment and Plan 1. Respiratory failure secondary to pneumonia: Sputum culture growing multidrug resistant Acinetobacter. Appreciate infectious disease recommendations. Continue special contact, droplet isolation. Continue cefepime, fluconazole, aerosolized tobramycin. BiPAP as needed. Continue supplemental oxygen. Incentive spirometry. Recheck CXR. 2. Uncontrolled atrial fibrillation: Rate is improved. Possibly had been worsened by infection. Appreciate cardiology recommendations. Continue oral amiodarone. 3. Depression: Continue escitalopram, Cymbalta. 4. GERD: Pepcid. 5. Memory deficit: Aricept. 6. Migraine headaches: Topamax. Imitrex subQ as needed. 7. Hyperlipidemia: Resume statin as outpatient. 8. Chronic pancreatitis: Continue Creon. 9. Parkinson's disease: Continue Sinemet. 10. DVT prophylaxis: SCDs, JOAQUINA hose, heparin. 11. Chest pressure: Check CXR. Check cardiac enzymes, EKG. Likely pleuritic. Discharge Planning Pending further clinical improvement and infectious disease clearance. Per PT recommendations, patient will need SNF/rehab. Eduard Escamilla MD Dec 10, 2017 15:25
--- NOTE | 2017-12-10 16:41 | RADRPT ---
EXAM DATE/TIME: 12/10/2017 16:20 [facility] COMPARISON: CHEST SINGLE AP, December 09, 2017, 14:04. INDICATIONS : Evaluate for pneumonia. MEDICAL HISTORY : Cardiovascular disease. Diabetes mellitus type 2. Renal calculi.GERD SURGICAL HISTORY : Carotid endarterectomy. Appendectomy.Kyphoplasty.Lumbar fusion ENCOUNTER: Subsequent ACUITY: 4 - 6 days PAIN SCORE: 0/10 LOCATION: Bilateral chest FINDINGS: Moderate hyperinflation with mild compensated cardiomegaly. Minimal probable changes developing in the right upper lobe. Left lung is clear. The portion of the bony skeleton visualized is unremarkable. CONCLUSION: Increasing parenchymal opacity right upper lobe, probable infiltrate. Yoshi Cloud MD FACR on December 10, 2017 at 16:38 Board Certified Radiologist. This report was verified electronically.
[2017-12-10 18:27] LABS: TROPONIN I LESS THAN 0.02 NG/ML (0.02-0.05)
--- NOTE | 2017-12-10 19:23 | HHI.IDPN ---
Note Infectious Disease Note Patient feels okay. Notes that his only discomfort is when he takes a deep breath he gets anterior chest this pain. Just finished eating. No other complaints. Feels his breathing is better. Still requiring 5 L O2. Sputum production. Additional cough. Afebrile. Denies chills. Receiving treatment for Acinetobacter pneumonia. 77-year-old white male who was recently discharged from the hospital after treatment for pneumonia. The patient was evaluated between 11/14 and 12/02, was discharged after treatment for pneumonia. Cultures obtained during last admission were all negative. The patient went home and states that he was feeling very weak and had difficulty ambulating and shortness of breath and also had no appetite. He presented to the emergency department on 12/03 for evaluation and had to be put on BiPAP. Chest x-ray was performed and it showed worsening infiltrates. The patient underwent bronchoscopy on 2 occasions during the last hospitalization and cultures were negative. There were thick, tenacious secretions suctioned from the tracheal tree. The only culture which came back from the bronchoscopy on 11/23/2017 showed Elizabeth albicans. He received treatment with fluconazole and was discharged home on fluconazole and Levaquin. PAST MEDICAL HISTORY: Hypertension, gastroesophageal reflux disease, hyperlipidemia, allergic rhinitis, history of migraine headaches, vasculitis, CVA in 2009, chronic low back pain, spinal stimulator, carotid artery surgery, bilateral knee surgery, osteomyelitis of the left lower extremity in 1964, back fusion. ALLERGIES: NO KNOWN DRUG ALLERGIES. Antibiotics. Unasyn. Aerosol tobramycin. Current Medications Medications (Trade) Dose Ordered Sig/Nilsa Route PRN Reason Start Time Stop Time Status Last Admin Dose Admin Aspirin (Aspirin Chew) 81 mg DAILY CHEW 12/04/17 09:00 12/10/17 09:09 Carbidopa/Levodopa (Sinemet 25-100 Mg) 1 tab Q8HR PO 12/04/17 06:00 12/10/17 14:00 Donepezil HCl (Aricept) 10 mg HS PO 12/04/17 21:00 12/09/17 20:18 Duloxetine HCl (Cymbalta Dr) 60 mg DAILY PO 12/04/17 09:00 12/10/17 09:09 Escitalopram Oxalate (Lexapro) 10 mg DAILY PO 12/04/17 09:00 12/10/17 10:08 Glipizide (Glucotrol) 5 mg BID@ PO 12/04/17 08:00 12/10/17 16:55 Prednisone (Deltasone) 10 mg DAILY PO 12/04/17 09:00 12/10/17 09:11 Pregabalin (Lyrica) 200 mg TID PO 12/04/17 09:00 12/10/17 16:55 Temazepam (Restoril) 30 mg HS PRN PO INSOMNIA 12/03/17 23:45 12/09/17 22:07 Topiramate (Topamax) 25 mg BID PO 12/04/17 09:00 12/10/17 09:09 Patient Own Medication PT OWN MED: LINZ... DAILY PO 12/04/17 09:00 12/10/17 09:00 Patient Own Medication PT OWN MED: MOVAN... DAILY PO 12/04/17 09:00 Amylase/Lipase/ Protease (Creon 24-76-120) 1 cap TIDPC PO 12/04/17 09:30 12/10/17 16:55 Sodium Chloride (NS Flush) 2 ml UNSCH PRN IV FLUSH FLUSH AFTER USING IV ACCESS 12/04/17 00:00 Sodium Chloride (NS Flush) 2 ml BID IV FLUSH 12/04/17 09:00 12/10/17 09:13 Acetaminophen (Tylenol) 650 mg Q6H PRN PO PAIN 1-10 AND/OR FEVER >101F 12/04/17 00:00 12/08/17 05:39 Famotidine (Pepcid Inj) 20 mg Q12HR IV PUSH 12/04/17 09:00 12/10/17 09:11 Ondansetron HCl (Zofran Inj) 4 mg Q6H PRN IV PUSH NAUSEA OR VOMITING 12/04/17 00:00 Albuterol/ Ipratropium (Duoneb Neb) 1 ampule Q2HR NEB PRN INH WHEEZING 12/04/17 00:00 12/09/17 08:30 Heparin Sodium (Porcine) (Heparin Inj) 5,000 units Q8H SQ 12/04/17 00:00 12/10/17 16:55 Miscellaneous Information 1 Q361D XX 12/04/17 00:00 12/04/17 00:00 Chlorhexidine Gluconate (Chlorhexidine 2% Cloth) Taper DAILY@04 TOP 12/04/17 04:00 11/30/18 03:59 12/08/17 04:00 Chlorhexidine Gluconate (Chlorhexidine 2% Cloth) 3 pack UNSCH PRN TOP HYGIENIC CARE 12/04/17 00:00 Senna/Docusate Sodium (Mili-Colace) 1 tab BID PO 12/04/17 09:00 12/09/17 20:18 Magnesium Hydroxide (Milk Of Magnesia Liq) 30 ml Q12H PRN PO Mild constipation 12/04/17 00:00 Sennosides (Senokot) 17.2 mg Q12H PRN PO Moderate constipation 12/04/17 00:00 Bisacodyl (Dulcolax Supp) 10 mg DAILY PRN RECTAL SEVERE CONSITIPATION/ IF NPO 12/04/17 00:00 Lactulose (Lactulose Liq) 30 ml DAILY PRN PO SEVERE CONSITIPATION/ IF PO 12/04/17 00:00 Guaifenesin (Mucinex Er) 600 mg BID PO 12/05/17 14:00 12/09/17 20:18 Dextrose (D50w (Vial) Inj) 50 ml UNSCH PRN IV PUSH HYPOGLYCEMIA-SEE COMMENTS 12/05/17 20:00 Glucagon (Glucagon Inj) 1 mg UNSCH PRN OTHER HYPOGLYCEMIA-SEE COMMENTS 12/05/17 20:00 Insulin Aspart (NovoLOG SUPPLEMENTAL SCALE) 1 ACHS SLIDING SCALE SQ 12/05/17 21:00 12/10/17 16:56 Tobramycin Sulfate (Chandra Neb) 300 mg Q12HR NEB NEB 12/06/17 20:00 12/10/17 08:05 Ampicillin Sodium/ Sulbactam Sodium 3 gm/Sodium Chloride 100 ml @ 200 mls/hr Q6H IV 12/06/17 12:30 12/10/17 18:08 Amiodarone HCl (Cordarone) 200 mg DAILY PO 12/07/17 10:00 12/10/17 09:11 Lisinopril (Prinivil) 2.5 mg DAILY PO 12/07/17 12:30 12/10/17 09:08 Enalaprilat (Vasotec Inj) 1.25 mg Q8H PRN IV PUSH SBP> OR = 180, DBP> OR = 100 12/07/17 12:30 12/09/17 00:45 Miscellaneous (Pill Splitter) 1 ea UNSCH PRN OTHER SEE LABEL COMMENTS 12/07/17 13:45 Sumatriptan Succinate (Imitrex Inj) 6 mg UNSCH PRN SQ MIGRAINE HEADACHE 12/09/17 09:00 12/10/17 10:11 OBJECTIVE: Vital Signs Date Time Temp Pulse Resp B/P (MAP) Pulse Ox O2 Delivery O2 Flow Rate FiO2 12/10/17 16:00 95 12/10/17 14:00 95 12/10/17 12:00 95 12/10/17 08:06 98 Nasal Cannula 3.00 12/10/17 08:00 82 12/10/17 08:00 97.9 82 170/74 (106) 12/10/17 06:00 62 12/10/17 04:00 98.2 63 16 145/75 (98) 92 12/10/17 04:00 63 12/10/17 02:00 56 12/10/17 00:00 58 12/10/17 00:00 98.0 58 16 118/64 (82) 89 12/09/17 22:21 92 Nasal Cannula 5.00 12/09/17 22:00 66 12/09/17 20:00 70 12/09/17 20:00 98.1 70 20 150/83 (105) 94 Laboratory Tests Test 12/10/17 17:15 Total Creatine Kinase 49 U/L Troponin I LESS THAN 0.02 NG/ML IMAGING: Chest X-Ray 12/10/17 0000 Signed Impressions: Service Date/Time: Sunday, December 10, 2017 16:20 - CONCLUSION: Increasing parenchymal opacity right upper lobe, probable infiltrate. Yoshi Cloud MD FACR Chest X-Ray 12/09/17 0000 Signed Impressions: Service Date/Time: November 14:04 - CONCLUSION: Slight improvement in aeration at the left lung base. Kwadwo Luz MD Chest X-Ray 12/05/17 0600 Signed Impressions: Service Date/Time: Tuesday, December 05, 2017 04:23 - CONCLUSION: Improving aeration in the right upper and left lower lobes Percy Ferraro MD Chest X-Ray 12/04/17 0000 Signed Impressions: Service Date/Time: Monday, December 04, 2017 03:22 - CONCLUSION: 1. Worsening consolidation in the left base with developing infiltrate in the right upper lung. 2. Cardiomegaly. Percy Ferraro MD CT Angiography 12/03/171942 Signed Impressions: Service Date/Time: Sunday, December 03, 2017 22:54 - CONCLUSION: 1. Somewhat limited exam of minimal contrast in the pulmonary artery. No large central pulmonary embolus, however. 2. However, oblique patient's symptoms are probably related to worsening pneumonic infiltrates. New interstitial process posteriorly in the right upper lobe with areas of consolidation in both lung bases, left worse than right. Percy Ferraro MD PHYSICAL EXAMINATION: GENERAL: Patient currently on oxygen via nasal cannula. HEENT: No icterus. No conjunctival erythema. NECK: Supple without adenopathy. LUNGS: Bilateral rhonchi. Better air movement. HEART: Irregular rate and rhythm. No audible murmur. No rubs or gallops. ABDOMEN: Obese, soft, decreased bowel sounds. EXTREMITIES: No clubbing, cyanosis or edema. SKIN: No rash. NEUROLOGIC: No gross focal findings. PSYCHIATRIC: Calm and cooperative. IMPRESSION: 1. Pneumonia. HCAP. Previously failed antibiotic treatment Multidrug-resistant Acinetobacter. Organism resistant to Avycaz and Zerbaxa. 2. Hypoxemia requiring BiPAP previously. No tolerating oxygen via nasal cannula. 3. Leukocytosis. WBC lower. 4. Chronic kidney disease. RECOMMENDATIONS: 1. Continue Unasyn. 2. Continue aerosolized tobramycin. 3. Monitor temperature. 4. Monitor clinical status. I would be off now through December 23. Other ID MDs covering. Mack Hodgson MD Dec 10, 2017 19:23
[2017-12-10] MEDS: DONEPEZIL HCL 5 MG TAB PO SCH (20:55)
[2017-12-11] VITALS (14 sets, daily range): BP systolic 126–152; BP diastolic 57–81; PULSE 55–77; RESP 15–22; TEMP 98–98.9; O2SAT 93–98
[2017-12-11] MEDS: AMPICILLIN-SULBACTAM INJ 3 GM in SODIUM CHLORIDE 0.9% INJ 100 ML IV SCH ×4 (00:02→18:51)
[2017-12-11] MEDS: HEPARIN SODIUM - SQ 10,000 UNITS/ML VIAL SQ SCH ×3 (00:02→18:50)
[2017-12-11] MEDS: TEMAZEPAM 15 MG CAP PO PRN ×2 (00:02→22:03)
[2017-12-11] MEDS: CHLORHEXIDINE GLUCONATE 2 % 1 PACK (2 CLOTHS) TOP SCH (03:58)
[2017-12-11] MEDS: CARBIDOPA/LEVODOPA 25 MG/100 MG TAB PO SCH ×3 (05:45→22:02)
[2017-12-11 07:09] LABS: AUTOMATED NEUTROPHIL # 4.3 TH/MM3 (1.8-7.7); BASOPHIL % 0.5 % (0.0-2.0); EOSINOPHIL # 0.1 TH/MM3 (0-0.4); EOSINOPHIL % 1.7 % (0.0-4.0); HEMATOCRIT 40.4 % (39.0-51.0); HEMOGLOBIN 13.8 GM/DL (13.0-17.0); LYMPH % 23.3 % (9.0-44.0); LYMPHOCYTE # 1.4 TH/MM3 (1.0-4.8); MEAN CELL VOLUME 91.6 FL (80.0-100.0); MEAN CORPUSCULAR HEMOGLOBIN 31.2 PG (27.0-34.0); MEAN CORPUSCULAR HGB CONC 34.1 % (32.0-36.0); MEAN PLATELET VOLUME 9.3 FL (7.0-11.0); MONO % 5.5 % (0.0-8.0); MONOCYTE # 0.3 TH/MM3 (0-0.9); PLATELET COUNT 120 TH/MM3 (150-450); RED BLOOD COUNT 4.42 MIL/MM3 (4.50-5.90); WHITE BLOOD COUNT 6.2 TH/MM3 (4.0-11.0)
[2017-12-11 07:30] LABS: BICARBONATE 23.8 MEQ/L (21.0-32.0); CALCIUM 8.7 MG/DL (8.5-10.1); CREATININE 1.08 MG/DL (0.60-1.30)
[2017-12-11] MEDS: INSULIN ASPART SUPPLEMENTAL SCALE SQ SCH ×4 (08:00→19:43)
[2017-12-11] MEDS: DULoxetine HCl DR 60 MG CAP PO SCH (08:27)
[2017-12-11] MEDS: AMIODARONE 200 MG TAB PO SCH (08:27)
[2017-12-11] MEDS: ASPIRIN 81 MG CHEW TAB CHEW SCH (08:27)
[2017-12-11] MEDS: DOCUSATE SODIUM 50 MG/SENNA 8.6 MG TAB PO SCH ×2 (08:27→20:02)
[2017-12-11] MEDS: PREGABALIN 100 MG CAP PO SCH ×3 (08:28→18:50)
[2017-12-11] MEDS: LISINOPRIL 5 MG TAB PO SCH (08:28)
[2017-12-11] MEDS: glipiZIDE 5 MG TAB PO SCH ×2 (08:28→18:50)
[2017-12-11] MEDS: guaiFENesin E.R. 600 MG TAB PO SCH ×2 (08:28→20:01)
[2017-12-11] MEDS: LIPASE/PROTEASE/AMYLASE (24,000/76,000/120,000) CAP PO SCH ×3 (08:28→18:50)
[2017-12-11] MEDS: predniSONE 10 MG TAB PO SCH (08:29)
[2017-12-11] MEDS: TOPIRAMATE 25 MG TAB PO SCH ×2 (08:29→20:02)
[2017-12-11] MEDS: SODIUM CHLORIDE 0.9% FLUSH 10 ML FLUSH IV FLUSH SCH ×2 (08:29→20:01)
[2017-12-11] MEDS: PT OWN LINZESS 145 MCG PO SCH (08:29)
[2017-12-11] MEDS: FAMOTIDINE 20 MG/2 ML VIAL IV PUSH SCH ×2 (08:29→20:01)
[2017-12-11] MEDS: ESCITALOPRAM OXALATE 10 MG TAB PO SCH (08:29)
[2017-12-11] MEDS: RESP: TOBRAMYCIN SULFATE 300 MG/5 ML NEB NEB SCH ×3 (08:53→20:29)
[2017-12-11] MEDS: RESP: ALBUTEROL 2.5 MG/IPRATROPIUM 0.5 MG NEB (PRN) INH ×2 (09:00→20:25)
[2017-12-11 09:28] LABS: BANDS 7 % (0-6); BASOPHILS 1 % (0-2); LYMPHOCYTES 27 % (9-44); METAMYELOCYTES 3 % (0-1); MONOCYTES 5 % (0-8); POLYS (SEG NEUTROPHILS) 54 % (16-70)
[2017-12-11] MEDS: SUMAtriptan INJ 6 MG/0.5 ML VIAL SQ PRN ×2 (11:33→16:27)
--- NOTE | 2017-12-11 15:04 | HHI.PR ---
Subjective Remarks Follow-up pneumonia. Patient states that his breathing has improved. He is able to cough up more phlegm. Still has chest pressure with deep breaths. Objective Vitals Vital Signs Date Time Temp Pulse Resp B/P (MAP) Pulse Ox O2 Delivery O2 Flow Rate FiO2 12/11/17 12:00 77 12/11/17 12:00 98.0 77 20 130/71 (90) 93 12/11/17 10:00 61 12/11/17 09:02 96 Nasal Cannula 3.00 12/11/17 08:00 59 12/11/17 08:00 98.4 59 16 152/72 (98) 97 12/11/17 06:00 58 12/11/17 04:00 55 12/11/17 04:00 98.3 55 15 140/65 (90) 98 12/11/17 02:00 67 12/11/17 00:00 98.2 76 20 126/81 (96) 97 12/11/17 00:00 76 12/10/17 22:00 68 12/10/17 20:55 96 Nasal Cannula 4.00 12/10/17 20:00 65 12/10/17 20:00 98.0 65 15 120/56 (77) 96 12/10/17 18:00 89 12/10/17 16:00 95 12/10/17 16:00 97.6 70 16 141/72 (95) 97 I/O 12/10/17 12/10/17 12/10/17 12/11/17 12/11/17 12/11/17 07:00 15:00 23:00 07:00 15:00 23:00 Intake Total 400 ml 100 ml 600 ml 440 ml Output Total 900 ml 800 ml 1000 ml Balance -500 ml 100 ml -200 ml -560 ml Intake Oral 300 ml 500 ml 240 ml IV Total 100 ml 100 ml 100 ml 200 ml Output Urine Total 900 ml 800 ml 1000 ml # Bowel Movements 0 1 Result Diagram: 12/11/1760412/11/17 06 Imaging Last Impressions Chest X-Ray 12/10/17 0000 Signed Impressions: Service Date/Time: Sunday, December 10, 2017 16:20 - CONCLUSION: Increasing parenchymal opacity right upper lobe, probable infiltrate. Yoshi Cloud MD FACR CT Angiography 12/03/171942 Signed Impressions: Service Date/Time: Sunday, December 03, 2017 22:54 - CONCLUSION: 1. Somewhat limited exam of minimal contrast in the pulmonary artery. No large central pulmonary embolus, however. 2. However, oblique patient's symptoms are probably related to worsening pneumonic infiltrates. New interstitial process posteriorly in the right upper lobe with areas of consolidation in both lung bases, left worse than right. Percy Ferraro MD Objective Remarks General: Elderly male in no acute distress. Heart: Regular rate, irregular rhythm. No murmur. Lungs: Occasional rhonchi. Otherwise clear. Breathing is nonlabored. Abdomen: Soft, nontender, nondistended. Extremities: No lower extremity edema. Psych: Alert and oriented. Neuro: Speech is normal. Procedures None Urinary Catheter: No Vascular Central Line Catheter: No A/P Assessment and Plan 1. Respiratory failure secondary to pneumonia: Sputum culture growing multidrug resistant Acinetobacter. Appreciate infectious disease recommendations. Continue special contact, droplet isolation. Continue cefepime, fluconazole, aerosolized tobramycin. BiPAP as needed. Continue supplemental oxygen. Incentive spirometry. Right upper lobe opacity increasing on repeat chest x-ray. Consult pulmonology. 2. Uncontrolled atrial fibrillation: Rate is improved. Possibly had been worsened by infection. Appreciate cardiology recommendations. Continue oral amiodarone. 3. Depression: Continue escitalopram, Cymbalta. 4. GERD: Pepcid. 5. Memory deficit: Aricept. 6. Migraine headaches: Topamax. Imitrex subQ as needed. 7. Hyperlipidemia: Resume statin as outpatient. 8. Chronic pancreatitis: Continue Creon. 9. Parkinson's disease: Continue Sinemet. 10. DVT prophylaxis: SCDs, JOAQUINA hose, heparin. 11. Chest pressure: Pleuritic in nature. Cardiac enzymes are negative. Repeat chest x-ray shows increasing right upper lobe opacity. Discharge Planning Pending further clinical improvement and infectious disease clearance. Per PT recommendations, patient will need SNF/rehab. Eduard Escamilla MD Dec 11, 2017 15:04
[2017-12-11] MEDS: DONEPEZIL HCL 5 MG TAB PO SCH (20:01)
[2017-12-11] MEDS: ACETAMINOPHEN 325 MG TAB PO PRN (20:03)
--- NOTE | 2017-12-11 20:04 | EKG ---
Date Performed: 12/10/2017 Time Performed: 16:57:12 PTAGE: 77 years EKG: Sinus rhythm WITH FIRST DEGREE AV BLOCK WITH OCCASIONAL VENTRICULAR PREMATURE COMPLEXES WITH OCCASIONAL SUPRAVENT RICULAR PREMATURE COMPLEXES PATTERN CONSISTENT WITH PULMONARY DISEASE INFERIOR MYOCARDIAL INFARCTION , PROBABLY OLD ABNORMAL ECG Since the PREVIOUS TRACING , no significant change noted PREVIOUS TRACIN12/08/2017 07.05 DOCTOR: Sarah Cárdenas Interpretating Date/Time 12/11/2017 20:02:48
[2017-12-12] VITALS (12 sets, daily range): BP systolic 126–145; BP diastolic 64–86; PULSE 50–89; RESP 13–21; TEMP 97.8–98.7; O2SAT 94–98
[2017-12-12] MEDS: AMPICILLIN-SULBACTAM INJ 3 GM in SODIUM CHLORIDE 0.9% INJ 100 ML IV SCH ×5 (00:39→22:22)
[2017-12-12] MEDS: HEPARIN SODIUM - SQ 10,000 UNITS/ML VIAL SQ SCH ×4 (00:39→22:22)
[2017-12-12] MEDS: CHLORHEXIDINE GLUCONATE 2 % 1 PACK (2 CLOTHS) TOP SCH (04:00)
[2017-12-12] MEDS: CARBIDOPA/LEVODOPA 25 MG/100 MG TAB PO SCH ×3 (04:06→21:59)
[2017-12-12] MEDS: SUMAtriptan SUCCINATE 20 MG/ACT NASAL SPRAY NASAL PRN ×2 (04:07→16:24)
[2017-12-12] MEDS: ACETAMINOPHEN 325 MG TAB PO PRN ×2 (04:18→16:23)
[2017-12-12] MEDS: INSULIN ASPART SUPPLEMENTAL SCALE SQ SCH ×3 (08:00→22:07)
[2017-12-12] MEDS: RESP: TOBRAMYCIN SULFATE 300 MG/5 ML NEB NEB SCH ×2 (08:00→22:04)
[2017-12-12] MEDS: MOVANTIK 25 MG PO SCH (09:00)
[2017-12-12] MEDS: LISINOPRIL 5 MG TAB PO SCH (09:22)
[2017-12-12] MEDS: AMIODARONE 200 MG TAB PO SCH (09:22)
[2017-12-12] MEDS: PREGABALIN 100 MG CAP PO SCH ×3 (09:22→17:07)
[2017-12-12] MEDS: glipiZIDE 5 MG TAB PO SCH ×2 (09:22→17:07)
[2017-12-12] MEDS: DOCUSATE SODIUM 50 MG/SENNA 8.6 MG TAB PO SCH ×2 (09:22→21:59)
[2017-12-12] MEDS: LIPASE/PROTEASE/AMYLASE (24,000/76,000/120,000) CAP PO SCH ×3 (09:23→17:07)
[2017-12-12] MEDS: ESCITALOPRAM OXALATE 10 MG TAB PO SCH (09:23)
[2017-12-12] MEDS: predniSONE 10 MG TAB PO SCH (09:23)
[2017-12-12] MEDS: DULoxetine HCl DR 60 MG CAP PO SCH (09:23)
[2017-12-12] MEDS: guaiFENesin E.R. 600 MG TAB PO SCH ×2 (09:23→21:59)
[2017-12-12] MEDS: TOPIRAMATE 25 MG TAB PO SCH ×2 (09:23→21:59)
[2017-12-12] MEDS: FAMOTIDINE 20 MG/2 ML VIAL IV PUSH SCH ×2 (09:24→22:00)
[2017-12-12] MEDS: ASPIRIN 81 MG CHEW TAB CHEW SCH (09:24)
[2017-12-12] MEDS: PT OWN LINZESS 145 MCG PO SCH (09:24)
[2017-12-12] MEDS: SODIUM CHLORIDE 0.9% FLUSH 10 ML FLUSH IV FLUSH SCH ×2 (09:25→22:00)
--- NOTE | 2017-12-12 15:04 | HHI.PR ---
Subjective Remarks Follow up pneumonia. Patient states that he feels better today. Migraine headaches improving with nasal Imitrex. Dyspnea improving. Objective Vitals Vital Signs Date Time Temp Pulse Resp B/P (MAP) Pulse Ox O2 Delivery O2 Flow Rate FiO2 12/12/17 06:00 50 12/12/17 04:00 97.9 56 21 145/80 (101) 97 12/12/17 04:00 56 12/12/17 02:00 56 12/12/17 00:00 98.7 57 13 126/79 (95) 98 12/12/17 00:00 57 12/11/17 22:00 72 12/11/17 20:25 97 Nasal Cannula 3.00 12/11/17 20:00 98.9 67 22 140/67 (91) 96 12/11/17 20:00 67 12/11/17 18:00 65 12/11/17 16:00 68 12/11/17 16:00 98.7 68 17 131/57 (81) 97 I/O 12/11/17 12/11/17 12/11/17 12/12/17 12/12/17 12/12/17 07:00 15:00 23:00 07:00 15:00 23:00 Intake Total 440 ml 100 ml 1000 ml 694 ml Output Total 1000 ml 900 ml 1775 ml Balance -560 ml 100 ml 100 ml -1081 ml Intake Oral 240 ml 900 ml IV Total 200 ml 100 ml 100 ml 694 ml Output Urine Total 1000 ml 900 ml 1775 ml # Bowel Movements 0 Result Diagram: 12/11/17 0605 12/11/17 0605 Imaging Last Impressions Chest X-Ray 12/10/17 0000 Signed Impressions: Service Date/Time: Sunday, December 10, 2017 16:20 - CONCLUSION: Increasing parenchymal opacity right upper lobe, probable infiltrate. Yoshi Cloud MD FACR CT Angiography 12/03/17 194 Signed Impressions: Service Date/Time: Sunday, December 03, 2017 22:54 - CONCLUSION: 1. Somewhat limited exam of minimal contrast in the pulmonary artery. No large central pulmonary embolus, however. 2. However, oblique patient's symptoms are probably related to worsening pneumonic infiltrates. New interstitial process posteriorly in the right upper lobe with areas of consolidation in both lung bases, left worse than right. Percy Ferraro MD Objective Remarks General: Elderly male in no acute distress. Heart: Regular rate, irregular rhythm. No murmur. Lungs: Clear to auscultation without wheezes. Breathing is nonlabored. Abdomen: Soft, nontender, nondistended. Extremities: No lower extremity edema. Psych: Alert and oriented. Neuro: Speech is normal. Procedures None Urinary Catheter: No Vascular Central Line Catheter: No A/P Assessment and Plan 1. Respiratory failure secondary to pneumonia: Sputum culture growing multidrug resistant Acinetobacter. Appreciate infectious disease recommendations. Continue special contact, droplet isolation. Continue cefepime, fluconazole, aerosolized tobramycin. BiPAP as needed. Continue supplemental oxygen. Incentive spirometry. Right upper lobe opacity increasing on repeat chest x-ray. Pulmonology consult is pending. 2. Uncontrolled atrial fibrillation: Rate is improved. Possibly had been worsened by infection. Appreciate cardiology recommendations. Continue oral amiodarone. 3. Depression: Continue escitalopram, Cymbalta. 4. GERD: Pepcid. 5. Memory deficit: Aricept. 6. Migraine headaches: Topamax. Imitrex subQ as needed. 7. Hyperlipidemia: Resume statin as outpatient. 8. Chronic pancreatitis: Continue Creon. 9. Parkinson's disease: Continue Sinemet. 10. DVT prophylaxis: SCDs, JOAQUINA hose, heparin. 11. Chest pressure: Pleuritic in nature. Cardiac enzymes are negative. Repeat chest x-ray shows increasing right upper lobe opacity. Discharge Planning Transfer to med/surg with telemetry. Pending further clinical improvement and infectious disease clearance. Per PT recommendations, patient will need SNF/rehab. Eduard Escamilla MD Dec 12, 2017 15:04
[2017-12-12] MEDS: DONEPEZIL HCL 5 MG TAB PO SCH (21:59)
[2017-12-12] MEDS: TEMAZEPAM 15 MG CAP PO PRN (22:22)
[2017-12-13] VITALS (9 sets, daily range): BP systolic 114–150; BP diastolic 59–92; PULSE 65–73; RESP 18; TEMP 97.1–98; O2SAT 92–97
[2017-12-13] MEDS: SUMAtriptan SUCCINATE 20 MG/ACT NASAL SPRAY NASAL PRN ×2 (03:24→23:30)
[2017-12-13] MEDS: CHLORHEXIDINE GLUCONATE 2 % 1 PACK (2 CLOTHS) TOP SCH (03:26)
[2017-12-13] MEDS: AMPICILLIN-SULBACTAM INJ 3 GM in SODIUM CHLORIDE 0.9% INJ 100 ML IV SCH ×3 (05:10→21:03)
[2017-12-13] MEDS: CARBIDOPA/LEVODOPA 25 MG/100 MG TAB PO SCH ×3 (05:10→21:03)
[2017-12-13] MEDS: INSULIN ASPART SUPPLEMENTAL SCALE SQ SCH ×4 (08:00→21:00)
[2017-12-13] MEDS: RESP: TOBRAMYCIN SULFATE 300 MG/5 ML NEB NEB SCH ×2 (08:00→19:55)
[2017-12-13] MEDS: MOVANTIK 25 MG PO SCH (09:00)
[2017-12-13] MEDS: PT OWN LINZESS 145 MCG PO SCH (09:00)
[2017-12-13] MEDS: glipiZIDE 5 MG TAB PO SCH ×2 (09:19→15:52)
[2017-12-13] MEDS: PREGABALIN 100 MG CAP PO SCH ×3 (09:19→18:50)
[2017-12-13] MEDS: ESCITALOPRAM OXALATE 10 MG TAB PO SCH (09:19)
[2017-12-13] MEDS: predniSONE 10 MG TAB PO SCH (09:19)
[2017-12-13] MEDS: DULoxetine HCl DR 60 MG CAP PO SCH (09:19)
[2017-12-13] MEDS: guaiFENesin E.R. 600 MG TAB PO SCH ×2 (09:20→21:01)
[2017-12-13] MEDS: AMIODARONE 200 MG TAB PO SCH (09:20)
[2017-12-13] MEDS: DOCUSATE SODIUM 50 MG/SENNA 8.6 MG TAB PO SCH ×2 (09:20→21:01)
[2017-12-13] MEDS: ASPIRIN 81 MG CHEW TAB CHEW SCH (09:20)
[2017-12-13] MEDS: LISINOPRIL 5 MG TAB PO SCH (09:20)
[2017-12-13] MEDS: TOPIRAMATE 25 MG TAB PO SCH ×2 (09:22→21:00)
[2017-12-13] MEDS: FAMOTIDINE 20 MG/2 ML VIAL IV PUSH SCH (09:22)
[2017-12-13] MEDS: HEPARIN SODIUM - SQ 10,000 UNITS/ML VIAL SQ SCH ×2 (09:23→15:51)
[2017-12-13] MEDS: SODIUM CHLORIDE 0.9% FLUSH 10 ML FLUSH IV FLUSH SCH ×2 (09:23→21:00)
[2017-12-13] MEDS: LIPASE/PROTEASE/AMYLASE (24,000/76,000/120,000) CAP PO SCH ×3 (09:24→18:50)
--- NOTE | 2017-12-13 10:12 | HHI.PR ---
Subjective Remarks Nursing denies any topher deterioration since last night. Patient himself says that his shortness of breath is somewhat better since admission. He says he took off his oxygen just to go to the bathroom. Says he has not had a bowel movement yet. Objective Vital Signs Date Time Temp Pulse Resp B/P (MAP) Pulse Ox O2 Delivery O2 Flow Rate FiO2 12/13/17 04:00 65 12/13/17 04:00 97.9 71 18 119/62 (81) 95 12/13/17 00:14 97.9 65 18 134/65 (88) 94 12/13/17 00:00 66 12/12/17 22:13 62 18 140/86 (104) 96 12/12/17 22:09 94 Nasal Cannula 4.00 12/12/17 20:00 64 12/12/17 16:00 98.1 67 19 129/66 (87) 94 12/12/17 16:00 67 12/12/17 14:00 89 12/12/17 12:00 98.1 66 15 134/64 (87) 95 12/12/17 12:00 66 I/O 12/12/17 12/12/17 12/12/17 12/13/17 12/13/17 12/13/17 07:00 15:00 23:00 07:00 15:00 23:00 Intake Total 694 ml 800 ml 340 ml Output Total 1775 ml 1000 ml Balance -1081 ml 800 ml -660 ml Intake Oral 600 ml 240 ml IV Total 694 ml 200 ml 100 ml Output Urine Total 1775 ml 1000 ml # Bowel Movements 0 Result Diagram: 12/11/1760412/11/17 06 Objective Remarks Relatively clear lung sounds bilaterally, unlabored breathing on room air Abdomen is nondistended A/P Assessment and Plan Respiratory failure 2/2 PNA - wean as tolerated, tx PNA as below pneumonia: Sputum culture growing multidrug resistant Acinetobacter. Appreciate infectious disease recommendations -on Unasyn, fluconazole, and aerosolized tobramycin. Continue special contact, droplet isolation. BiPAP as needed. Continue supplemental oxygen. Incentive spirometry. Right upper lobe opacity increasing on repeat chest x-ray. Pulmonology consult is pending. atrial fibrillation: Continue oral amiodarone. Depression: Continue escitalopram, Cymbalta. GERD: Pepcid. Memory deficit: Aricept. Migraine headaches: Topamax. Imitrex subQ as needed. Hyperlipidemia: Resume statin as outpatient. Chronic pancreatitis: Continue Creon. Parkinson's disease: Continue Sinemet. 10. DVT prophylaxis: JOAQUINA Raphael, heparin. Favian Dey MD Dec 13, 2017 10:12
--- NOTE | 2017-12-13 15:47 | HHI.IDPN ---
Subjective Subjective Remarks ID coverage for Dr. Hodgson 77-year-old white male who was recently discharged from the hospital after treatment for pneumonia. The patient was evaluated between 11/14 and 12/02, was discharged after treatment for pneumonia. Cultures obtained during last admission were all negative. The patient went home and states that he was feeling very weak and had difficulty ambulating and shortness of breath and also had no appetite. He presented to the emergency department on 12/03 for evaluation andhad to be put on BiPAP. Chest x-ray was performed and it showed worsening infiltrates. The patient underwent bronchoscopy on 2 occasions during the last hospitalization and cultures were negative. There were thick, tenacious secretions suctioned from the tracheal tree. The only culture which came back from the bronchoscopy on 11/23/2017 showed Elizabeth albicans. He received treatment with fluconazole and was discharged home on fluconazole and Levaquin. Receiving treatment for Acinetobacter pneumonia. Notes reviewed patient is afebrile white count within normal limits Patient states his breathing is much improved, feels he is getting better He denies any cough or sputum production He denies any diarrhea No rash Does report some lower abdominal pain but has not had BM on RA Antibiotics Unasyn Aerosolized Tobramycin Lines PIV with no evidence of infection Past Medical History Hypertension, gastroesophageal reflux disease, hyperlipidemia, allergic rhinitis, history of migraine headaches, vasculitis, CVA in 2009, chronic low back pain, spinal stimulator, carotid artery surgery, bilateral knee surgery, osteomyelitis of the left lower extremity in 1964, back fusion. (Leilani Rodrigues) Allergies: Coded Allergies: No Known Allergies (Verified Allergy, Unknown, 11/14/17) Objective . Vital Signs Date Time Temp Pulse Resp B/P (MAP) Pulse Ox O2 Delivery O2 Flow Rate FiO2 12/13/17 08:45 66 12/13/17 08:00 97.2 68 18 114/66 (82) 93 12/13/17 04:00 65 12/13/17 04:00 97.9 71 18 119/62 (81) 95 12/13/17 00:14 97.9 65 18 134/65 (88) 94 12/13/17 00:00 66 12/12/17 22:13 62 18 140/86 (104) 96 12/12/17 22:09 94 Nasal Cannula 4.00 12/12/17 20:00 64 12/12/17 16:00 98.1 67 19 129/66 (87) 94 12/12/17 16:00 67 . Laboratory Tests Test 12/10/17 17:15 12/11/17 06:05 Total Creatine Kinase 49 U/L Troponin I LESS THAN 0.02 NG/ML White Blood Count 6.2 TH/MM3 Red Blood Count 4.42 MIL/MM3 Hemoglobin 13.8 GM/DL Hematocrit 40.4 % Mean Corpuscular Volume 91.6 FL Mean Corpuscular Hemoglobin 31.2 PG Mean Corpuscular Hemoglobin Concent 34.1 % Red Cell Distribution Width 16.0 % Platelet Count 120 TH/MM3 Mean Platelet Volume 9.3 FL Neutrophils (%) (Auto) 69.0 % Lymphocytes (%) (Auto) 23.3 % Monocytes (%) (Auto) 5.5 % Eosinophils (%) (Auto) 1.7 % Basophils (%) (Auto) 0.5 % Neutrophils # (Auto) 4.3 TH/MM3 Lymphocytes # (Auto) 1.4 TH/MM3 Monocytes # (Auto) 0.3 TH/MM3 Eosinophils # (Auto) 0.1 TH/MM3 Basophils # (Auto) 0.0 TH/MM3 CBC Comment AUTO DIFF Differential Total Cells Counted 100 Neutrophils % (Manual) 54 % Band Neutrophils % 7 % Lymphocytes % 27 % Monocytes % 5 % Eosinophils % 3 % Basophils % 1 % Neutrophils # (Manual) 4.0 TH/MM3 Metamyelocytes 3 % Differential Comment FINAL DIFF MANUAL Atypical Lymphocytes % Platelet Estimate LOW Platelet Morphology Comment NORMAL Red Cell Morphology Comment NORMAL Blood Urea Nitrogen 24 MG/DL Creatinine 1.08 MG/DL Random Glucose 97 MG/DL Calcium Level 8.7 MG/DL Sodium Level 139 MEQ/L Potassium Level 3.6 MEQ/L Chloride Level 106 MEQ/L Carbon Dioxide Level 23.8 MEQ/L Anion Gap 9 MEQ/L Estimat Glomerular Filtration Rate 67 ML/MIN Imaging Last Impressions Chest X-Ray 12/10/17 0000 Signed Impressions: Service Date/Time: Sunday, December 10, 2017 16:20 - CONCLUSION: Increasing parenchymal opacity right upper lobe, probable infiltrate. Yoshi Cloud MD FACR CT Angiography 12/03/17 1943 Signed Impressions: Service Date/Time: Sunday, December 03, 2017 22:54 - CONCLUSION: 1. Somewhat limited exam of minimal contrast in the pulmonary artery. No large central pulmonary embolus, however. 2. However, oblique patient's symptoms are probably related to worsening pneumonic infiltrates. New interstitial process posteriorly in the right upper lobe with areas of consolidation in both lung bases, left worse than right. Percy Ferraro MD Physical Exam GENERAL: Well-nourished, well-developed male patient in NAD. Awake and alert. Lying in bed. Appears comfortable. On room air. SKIN: Warm and dry. No rash. HEAD: Normocephalic. Atraumatic. EYES: Pupils equal and round. No scleral icterus. No injection or drainage. ENT: No nasal bleeding or discharge. Mucous membranes pink and moist. NECK: Supple. Trachea midline. CARDIOVASCULAR: Regular rate and rhythm. S1, S2 noted. No murmur appreciated. RESPIRATORY: Nonlabored. Crepitance noted on exam. GASTROINTESTINAL: Abdomen soft, non-tender, . Normoactive bowel sounds x4. MUSCULOSKELETAL: No obvious deformities. Extremities without clubbing, cyanosis , or edema. NEUROLOGICAL: Awake and alert. No obvious cranial nerve deficits. Motor grossly within normal limits. No focal neurologic finding appreciated. Normal speech. PSYCHIATRIC: Appropriate mood and affect; insight and judgment normal. (Leilani Rodrigues) Assessment & Plan Remarks ASSESSMENT: 1. Pneumonia. HCAP. Previously failed antibiotic treatment -Multidrug-resistant Acinetobacter. -Organism resistant to Avycaz and Zerbaxa. -CXR 12/10 shows increasing parenchymal opacity right upper lobe. Pulmonology consult pending. -patient is afebrile.. Breathing has improved. Sputum production resolved. 2. Hypoxemic respiratory failure requiring BiPAP previously. Now on room air. 3. Leukocytosis -resolved 4. Chronic kidney disease. RECOMMENDATIONS: 1. Continue Unasyn. 2. Continue aerosolized tobramycin. 3. Repeat CXR in am 4. Obtain Procalcitonin level 5. Continue to monitor temperature. 6. Continue to monitor clinical status. 7. Continue to monitor respiratory status (Leilani Rodrigues) Remarks The exam, history, and the medical decision-making described in the above note were completed with the assistance of the mid-level provider. I reviewed the historical facts with patient again, along with pertinent ROS and performed an independent physical examination. I agree with the findings presented. I attest that I had a [id number] encounter with the patient on the same day, and personally performed and documented my assessment/plan and findings in the medical record. Overnight events reviewed Reports breathing much improved Reports no expectoration anymore. Used to have yellow moderate thick secretions Exam: creps in bases L>R Pedal edema trace Recs Continue Unasyn IV Continue Toney nebs Will follow along. (Blanquita Hopkins MD) Leilani Rodrigues Dec 13, 2017 15:47 Blanquita Hopkins MD Dec 13, 2017 21:59
[2017-12-13] MEDS: RESP: ALBUTEROL 2.5 MG/IPRATROPIUM 0.5 MG NEB (PRN) INH (19:55)
[2017-12-13] MEDS: ACETAMINOPHEN 325 MG TAB PO PRN (20:59)
[2017-12-13] MEDS: FAMOTIDINE 20 MG TAB PO SCH (21:00)
[2017-12-13] MEDS: DONEPEZIL HCL 5 MG TAB PO SCH (21:01)
[2017-12-14] VITALS (7 sets, daily range): BP systolic 111–158; BP diastolic 52–88; PULSE 42–82; RESP 17–21; TEMP 97.3–98.6; O2SAT 92–98
[2017-12-14] MEDS: HEPARIN SODIUM - SQ 10,000 UNITS/ML VIAL SQ SCH ×3 (00:22→16:51)
[2017-12-14] MEDS: TEMAZEPAM 15 MG CAP PO PRN ×2 (00:22→22:15)
[2017-12-14] MEDS: AMPICILLIN-SULBACTAM INJ 3 GM in SODIUM CHLORIDE 0.9% INJ 100 ML IV SCH ×4 (00:22→16:51)
[2017-12-14] MEDS: CHLORHEXIDINE GLUCONATE 2 % 1 PACK (2 CLOTHS) TOP SCH (04:00)
[2017-12-14] MEDS: CARBIDOPA/LEVODOPA 25 MG/100 MG TAB PO SCH ×3 (06:00→22:10)
--- NOTE | 2017-12-14 06:35 | RADRPT ---
EXAM DATE/TIME: 12/14/2017 05:38 [facility] COMPARISON: CHEST SINGLE AP, December 10, 2017, 16:20. INDICATIONS : Short of breath, weakness, evaluate pneumonia MEDICAL HISTORY : Cardiovascular disease. Diabetes mellitus type 2. Renal calculi.GERD SURGICAL HISTORY : Carotid endarterectomy. Appendectomy.Kyphoplasty.Lumbar fusion ENCOUNTER: Subsequent ACUITY: 1 month PAIN SCORE: 3/10 LOCATION: Bilateral chest FINDINGS: A single view of the chest demonstrates minimal scarring left lower lobe. Right upper lobe density rubio s almost completely resolved. Heart normal size. Neural stimulator catheter is again seen. The cardio mediastinal contours are unremarkable. Osseous structures are intact. CONCLUSION: 1. Minimal left basilar scarring. 2. Right upper lobe density has almost completely resolved. Tejas Duke MD on December 14, 2017 at 6:31 Board Certified Radiologist. This report was verified electronically.
[2017-12-14] MEDS: INSULIN ASPART SUPPLEMENTAL SCALE SQ SCH ×4 (08:00→20:45)
[2017-12-14] MEDS: RESP: TOBRAMYCIN SULFATE 300 MG/5 ML NEB NEB SCH ×2 (08:54→19:18)
[2017-12-14] MEDS: MOVANTIK 25 MG PO SCH (09:00)
--- NOTE | 2017-12-14 09:15 | MB ---
cc: Melvin Moon MD DATE: 12/13/2017 REQUESTING PHYSICIAN: Dr. Toledo REASON FOR CONSULTATION: Pneumonia. HISTORY OF PRESENT ILLNESS: Mr. Campos is a pleasant 77-year-old male with history of chronic back pain, stimulator placement, arthritis, bilateral knee replacement, gastroesophageal reflux. The patient was discharged from this hospital after being treated for pneumonia. Two days later, he came back with worsening of his shortness of breath. He was in respiratory distress and required BiPAP. He had a workup done. He has Acinetobacter pneumonia. He has been treated with antibiotics and now he feels much better. Weaned down to room air. He has no cough or sputum. There is no fever or chills. No night sweats. PAST MEDICAL HISTORY: Significant for history of recent pneumonia, gastroesophageal reflux, hyperlipidemia, history of CVA, chronic back pain, both knee replacements, history of osteomyelitis in the past, history of nerve stimulator. MEDICATIONS: He is currently taking the Imitrex nasal spray, famotidine 20 mg a day, lisinopril 2.5 mg at day, amiodarone 200 mg a day, tobramycin 300 mg very 12 hour nebulizer treatment, Unasyn 3 grams every 6 hours, guaifenesin 600 mg twice a day, donepezil 10 mg a day, Creon 24/76/121 capsule 3 times a day after meals, aspirin 81 mg a day, Lexapro 10 mg, prednisone 10 mg a day, Lyrica 200 mg 3 times a day, topiramate 25 mg twice a day, Sinemet 25/100 one tablet every 8 hours, aerosol treatment, temazepam 30 mg at nighttime. ALLERGIES: NO KNOWN DRUG ALLERGIES. SOCIAL HISTORY: No history of smoking. He used to drink socially. 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 He is . He has 2 children. REVIEW OF SYSTEMS: Normally up around and active. No DVT, pulmonary embolism. No malignancy. No seizures, stroke. PHYSICAL EXAMINATION: GENERAL: Well-built, well-nourished male, not in acute distress. VITAL SIGNS: Blood pressure 150/60, heart rate 70, respirations 18, temperature 97.6. HEENT: Pupils are equal and reactive to light. Oral mucosa and nasal mucosa normal. NECK: Supple. JVP noted. CHEST: Symmetrical bilaterally. No rhonchi. CARDIOVASCULAR: S1, S2 normal. ABDOMEN: Soft, nontender, nondistended. Bowel sounds are present. EXTREMITIES: No edema. IMPRESSION: 1. Acinetobacter pneumonia. He has been treated with Unasyn and tobramycin and he is clinically stable. Chest x-ray shows infiltrate in the lungs, but he has no leukocytosis. Clinically, he is improving. 2. Parkinson's disease. 3. Migraine headache. 4. History of arthritis. PLAN: I discussed with the patient, we will continue antibiotic, Unasyn and tobramycin aerosolized treatment as per ID's recommendation. Clinically stable on room air. Monitor his , monitor his CBC. Encourage him to ambulate. Further treatment dependent on course in the hospital. Thank you, Dr. Toledo, for this consult. MD MATTHEW Anderson/MAURI , 08:44 PM , 09:44 PM
[2017-12-14] MEDS: LIPASE/PROTEASE/AMYLASE (24,000/76,000/120,000) CAP PO SCH ×3 (09:43→16:50)
[2017-12-14] MEDS: TOPIRAMATE 25 MG TAB PO SCH ×2 (09:44→20:39)
[2017-12-14] MEDS: DOCUSATE SODIUM 50 MG/SENNA 8.6 MG TAB PO SCH ×2 (09:44→20:39)
[2017-12-14] MEDS: ASPIRIN 81 MG CHEW TAB CHEW SCH (09:44)
[2017-12-14] MEDS: ESCITALOPRAM OXALATE 10 MG TAB PO SCH (09:44)
[2017-12-14] MEDS: LISINOPRIL 5 MG TAB PO SCH (09:44)
[2017-12-14] MEDS: guaiFENesin E.R. 600 MG TAB PO SCH ×2 (09:44→20:39)
[2017-12-14] MEDS: PREGABALIN 100 MG CAP PO SCH ×3 (09:45→16:50)
[2017-12-14] MEDS: glipiZIDE 5 MG TAB PO SCH ×2 (09:45→16:50)
[2017-12-14] MEDS: predniSONE 10 MG TAB PO SCH (09:45)
[2017-12-14] MEDS: DULoxetine HCl DR 60 MG CAP PO SCH (09:45)
[2017-12-14] MEDS: AMIODARONE 200 MG TAB PO SCH (09:46)
[2017-12-14] MEDS: PT OWN LINZESS 145 MCG PO SCH (09:47)
[2017-12-14] MEDS: SODIUM CHLORIDE 0.9% FLUSH 10 ML FLUSH IV FLUSH SCH ×2 (09:53→20:39)
[2017-12-14] MEDS: FAMOTIDINE 20 MG TAB PO SCH ×2 (10:00→20:39)
--- NOTE | 2017-12-14 11:54 | HHI.PR ---
Subjective Remarks Nursing denies any deterioration since last night. Patient says he came off of his oxygen yesterday. Nursing says he is saturating on room air. Patient denies any shortness of breath. He is very hesitant about going home despite me telling him that his chest x-ray showing improvement. Objective Vital Signs Date Time Temp Pulse Resp B/P (MAP) Pulse Ox O2 Delivery O2 Flow Rate FiO2 12/14/17 08:00 97.8 72 19 111/68 (82) 92 12/14/17 05:00 63 12/14/17 04:39 98.6 73 18 119/52 (74) 96 12/14/17 00:00 97.7 56 20 143/65 (91) 95 12/14/17 00:00 61 12/13/17 21:00 73 12/13/17 20:00 98.0 70 18 128/92 (104) 97 12/13/17 16:00 97.6 70 18 150/69 (96) 93 12/13/17 12:00 97.1 69 18 123/59 (80) 92 I/O 12/13/17 12/13/17 12/13/17 12/14/17 12/14/17 12/14/17 07:00 15:00 23:00 07:00 15:00 23:00 Intake Total 340 ml 940 ml 780 ml Output Total 1000 ml 800 ml 800 ml Balance -660 ml 140 ml -20 ml Intake Oral 240 ml 840 ml 780 ml IV Total 100 ml 100 ml Output Urine Total 1000 ml 800 ml 800 ml # Bowel Movements 0 Result Diagram: 12/11/17 0612/11/17 06 Objective Remarks clear lung sounds bilaterally, unlabored breathing on room air, no cyanosis Abdomen is nondistended A/P Assessment and Plan Respiratory failure - resolved, on RA. pneumonia: Sputum culture growing multidrug resistant Acinetobacter. Appreciate infectious disease recommendations -on Unasyn, fluconazole, and aerosolized tobramycin. Continue special contact, droplet isolation. BiPAP as needed. Continue supplemental oxygen. I independently reviewed the chest x- ray and see substantial improvement in right upper lobe infiltrate. atrial fibrillation: Continue oral amiodarone. Depression: Continue escitalopram, Cymbalta. GERD: Pepcid. Memory deficit: Aricept. Migraine headaches: Topamax. Imitrex subQ as needed. Hyperlipidemia: Resume statin as outpatient. Chronic pancreatitis: Continue Creon. Parkinson's disease: Continue Sinemet. DVT prophylaxis: SCDs, JOAQUINA hose, heparin. In total, the time spent with the patient was over 35 minute of which more than 50% of patient care was spent discussing his or her care and counseling the patient and corresponding caregivers. Discharge Planning Discussed case with infectious disease, plans for home IV antibiotics. Favian Dey MD Dec 14, 2017 11:54
[2017-12-14] MEDS: SUMAtriptan SUCCINATE 20 MG/ACT NASAL SPRAY NASAL PRN (13:17)
--- NOTE | 2017-12-14 14:40 | HHI.IDPN ---
Subjective Subjective Remarks ID coverage for Dr. Hodgson 77-year-old white male who was recently discharged from the hospital after treatment for pneumonia. The patient was evaluated between 11/14 and 12/02, was discharged after treatment for pneumonia. Cultures obtained during last admission were all negative. The patient went home and states that he was feeling very weak and had difficulty ambulating and shortness of breath and also had no appetite. He presented to the emergency department on 12/03 for evaluation andhad to be put on BiPAP. Chest x-ray was performed and it showed worsening infiltrates. The patient underwent bronchoscopy on 2 occasions during the last hospitalization and cultures were negative. There were thick, tenacious secretions suctioned from the tracheal tree. The only culture which came back from the bronchoscopy on 11/23/2017 showed Elizabeth albicans. He received treatment with fluconazole and was discharged home on fluconazole and Levaquin. Receiving treatment for Acinetobacter pneumonia. Notes reviewed patient is afebrile white count within normal limits Patient states his breathing is much improved, feels he is getting better He denies any cough or sputum production He denies any diarrhea No rash On RA. CXR improved. Very MDR organism. Antibiotics Unasyn Aerosolized Tobramycin Lines PIV with no evidence of infection Past Medical History Hypertension, gastroesophageal reflux disease, hyperlipidemia, allergic rhinitis, history of migraine headaches, vasculitis, CVA in 2009, chronic low back pain, spinal stimulator, carotid artery surgery, bilateral knee surgery, osteomyelitis of the left lower extremity in 1964, back fusion. Allergies: Coded Allergies: No Known Allergies (Verified Allergy, Unknown, 11/14/17) Objective . Vital Signs Date Time Temp Pulse Resp B/P (MAP) Pulse Ox O2 Delivery O2 Flow Rate FiO2 12/14/17 12:00 97.3 42 20 139/68 (91) 98 12/14/17 08:00 97.8 72 19 111/68 (82) 92 12/14/17 05:00 63 12/14/17 04:39 98.6 73 18 119/52 (74) 96 12/14/17 00:00 97.7 56 20 143/65 (91) 95 12/14/17 00:00 61 12/13/17 21:00 73 12/13/17 20:00 98.0 70 18 128/92 (104) 97 12/13/17 16:00 97.6 70 18 150/69 (96) 93 . Laboratory Tests Test 12/14/17 04:30 Procalcitonin 0.06 ng/mL Imaging Last Impressions Chest X-Ray 12/10/17 0000 Signed Impressions: Service Date/Time: Sunday, December 10, 2017 16:20 - CONCLUSION: Increasing parenchymal opacity right upper lobe, probable infiltrate. Yoshi Cloud MD FACR CT Angiography 12/03/17 194 Signed Impressions: Service Date/Time: Sunday, December 03, 2017 22:54 - CONCLUSION: 1. Somewhat limited exam of minimal contrast in the pulmonary artery. No large central pulmonary embolus, however. 2. However, oblique patient's symptoms are probably related to worsening pneumonic infiltrates. New interstitial process posteriorly in the right upper lobe with areas of consolidation in both lung bases, left worse than right. Percy Ferraro MD Physical Exam GENERAL: Well-nourished, well-developed male patient in NAD. Awake and alert. Lying in bed. Appears comfortable. On room air. SKIN: Warm and dry. No rash. HEAD: Normocephalic. Atraumatic. EYES: Pupils equal and round. No scleral icterus. No injection or drainage. ENT: No nasal bleeding or discharge. Mucous membranes pink and moist. NECK: Supple. Trachea midline. CARDIOVASCULAR: Regular rate and rhythm. S1, S2 noted. No murmur appreciated. RESPIRATORY: Nonlabored. Crepitance noted on exam. GASTROINTESTINAL: Abdomen soft, non-tender, . Normoactive bowel sounds x4. MUSCULOSKELETAL: No obvious deformities. Extremities without clubbing, cyanosis , or edema. NEUROLOGICAL: Awake and alert. No obvious cranial nerve deficits. Motor grossly within normal limits. No focal neurologic finding appreciated. Normal speech. PSYCHIATRIC: Appropriate mood and affect; insight and judgment normal. Assessment & Plan Remarks 1. Pneumonia. HCAP. Previously failed antibiotic treatment -Multidrug-resistant Acinetobacter. -Organism resistant to Avycaz and Zerbaxa. -CXR 12/10 shows increasing parenchymal opacity right upper lobe. Pulmonology consult pending. -patient is afebrile.. Breathing has improved. Sputum production resolved. 2. Hypoxemic respiratory failure requiring BiPAP previously. Now on room air. 3. Leukocytosis -resolved 4. Chronic kidney disease. RECOMMENDATIONS: 1. Continue Unasyn. Plan on Outpt IV Unasyn on pump with home health for 7 days. PICC line order placed. 2. Continue aerosolized tobramycin while in hospital. dw patient and in room/ dw CM and technician inventory specialist abril Lu. Post hospital infusion orders in chart. If Pump can be arranged ok to place entire 24 hour dose in pump to be infused over 24 hr period. DC planning time in excess of 40 mins. abril micro: Minocycline could not be tested as no sample in lab at present time. Patient and thankful of care provided. Extensive discussion about organism , various sources, prevention in future. Recommended CHG bath to help reduce load of organisms. Explained that although CXR improved since organism is resistant would like to reduce or eliminate organism burden by giving a 14 day course. Patient given opportunity to ask questions and answered to their satisfaction. Will sign off please call back if any change in clinical condition or questions. Blanquita Hopkins MD Dec 14, 2017 14:40
--- NOTE | 2017-12-14 15:42 | HHI.FF ---
Face to Face Verification Diagnosis: (1) MDR Acinetobacter baumannii infection Physical Therapy Order: Evaluate and Treat, Strength and gait training Home Health Nursing Order: Signs/symptoms of disease process Nursing assessment with vital signs IV medication administration I have seen patient Andres Cano on 12/14/17. My clinical findings support the need for the requested home health care services because: Patient has SOB Injectable med education/admin I certify that my clinical findings support that this patient is homebound because: Unsteady gait/balance Unsafe to leave home unassisted Favian Dey MD Dec 14, 2017 15:42
[2017-12-14] MEDS ORDERED: SODIUM CHLORIDE 0.9% FLUSH 10 ML FLUSH IV FLUSH PRN (17:00)
--- NOTE | 2017-12-14 17:19 | RADRPT ---
EXAM DATE/TIME: 12/14/2017 16:56 [facility] COMPARISON: CHEST SINGLE AP, December 14, 2017, 5:38. INDICATIONS : Post PICC line placement. MEDICAL HISTORY : Cardiovascular disease. Diabetes mellitus type 2. Renal calculi.GERD SURGICAL HISTORY : Carotid endarterectomy. Appendectomy.Kyphoplasty.Lumbar fusion ENCOUNTER: Initial ACUITY: 1 day PAIN SCORE: 0/10 LOCATION: Bilateral chest FINDINGS: There is minimal linear scarring at the bases. No effusion. No pneumothorax. Tortuous aorta. Right PI CC line tip at in good position. No pneumothorax. CONCLUSION: 1. Right-sided PICC line tip in superior vena cava. There is minimal linear scarring at the left base . No consolidation. No pneumothorax. Nima Tse MD on December 14, 2017 at 17:16 Board Certified Radiologist. This report was verified electronically.
[2017-12-14] MEDS: RESP: ALBUTEROL 2.5 MG/IPRATROPIUM 0.5 MG NEB (PRN) INH (19:18)
--- NOTE | 2017-12-14 20:08 | HHI.PR ---
Subjective Remarks 77 YOWM with Acenetobactor Pn, Parkinsons dis Breathing betetr No Fever No CP Objective Vital Signs Vital Signs Date Time Temp Pulse Resp B/P (MAP) Pulse Ox O2 Delivery O2 Flow Rate FiO2 12/14/17 16:00 97.3 64 17 152/70 (97) 96 12/14/17 12:00 97.3 42 20 139/68 (91) 98 12/14/17 08:00 97.8 72 19 111/68 (82) 92 12/14/17 05:00 63 12/14/17 04:39 98.6 73 18 119/52 (74) 96 12/14/17 00:00 97.7 56 20 143/65 (91) 95 12/14/17 00:00 61 12/13/17 21:00 73 I/O 12/13/17 12/13/17 12/13/17 12/14/17 12/14/17 12/14/17 06:59 14:59 22:59 06:59 14:59 22:59 Intake Total 440 ml 940 ml 780 ml 845 ml Output Total 1000 ml 800 ml 800 ml Balance -560 ml 140 ml -20 ml 845 ml Intake Oral 240 ml 840 ml 780 ml 845 ml IV Total 200 ml 100 ml Output Urine Total 1000 ml 800 ml 800 ml # Voids 4 # Bowel Movements 0 1 Result Diagram: 12/11/1760412/11/17604 Objective Remarks GENERAL: WBWn Wm, NAD SKIN: Warm and dry. HEAD: Normocephalic. EYES: No scleral icterus. No injection or drainage. NECK: Supple, trachea midline. No JVD or lymphadenopathy. CARDIOVASCULAR: Regular rate and rhythm without murmurs, gallops, or rubs. RESPIRATORY: Breath sounds equal bilaterally. No accessory muscle use. GASTROINTESTINAL: Abdomen soft, non-tender, nondistended. MUSCULOSKELETAL: No cyanosis, or edema. BACK: Nontender without obvious deformity. No CVA tenderness. A/P Assessment and Plan IMPRESSION: 1. Acinetobacter pneumonia. He has been treated with Unasyn and tobramycin and he is clinically stable. Chest x-ray shows infiltrate in the lungs, but he has no leukocytosis. Clinically, he is improving. 2. Parkinson's disease. 3. Migraine headache. 4. History of arthritis PLAN: Abx per ID Unasyn IV for 7 more days SHELBIE nebs Aerosol nebs Supplement 02 DC plans underway Melvin Moon MD Dec 14, 2017 20:08
[2017-12-14] MEDS: DONEPEZIL HCL 5 MG TAB PO SCH (20:39)
--- NOTE | 2017-12-14 22:12 | HHI.FF ---
Infusion Therapy Location of Infusion Therapy: Home [facility] IV Infusion Order Patient Information Appointment Date: Dec 15, 2017 Patient Weight 110 kg Diagnosis: Diagnosis MDR Acinetobacter Baumannii Pneumonia Coded Allergies: No Known Allergies (Verified Allergy, Unknown, 11/14/17) Administer Medication Unasyn 3 gm IV q6 hours Start Treatment: Dec 15, 2017 Stop Treatment: Dec 22, 2017 Additional Information Venous access: Other (PICC or Midline. Ok to place total 24 hour dose in a pump if insurance approves it.) Additional Instructions [x] Peripheral flush and dressing changes per protocol [x] Implanted port and central print line feeder: * Implanted port: 10 ml Normal Saline followed by 5 ml Heparin 100 units/ml Heparin flush after each use and monthly to maintain. [] May leave port accessed during therapy. [] May leave peripheral site accessed for duration of therapy. [x] If patient has SOB or respiratory distress, check oxygen saturation. If less than 90% or clinical signs of respiratory distress, administer oxygen at 2 L/min. via nasal cannula and notify physician. [x] Anaphylaxis/Reaction orders: * Stop infusion. * Keep IV line open with saline flush. * Notify physician. * Monitor vital signs every 15 minutes until symptoms resolve. * Check Oxygen saturation; Oxygen at 2 L/min. via nasal cannula if less than 90% or clinical signs of respiratory distress. * Administer diphenhydramine (Benadryl) 25 mg IV STAT, (unless patient has received as pre-med). May repeat once, if necessary. * Solu-Cortef 250 mg IVP over 30-60 seconds, use 100 mg vials for each dissolution. * Epinephrine (1mg/1 ml) 0.3 mg subcutaneously or IVP now with any signs of respiratory distress. * Check with physician for new additional pre-med orders if patient is re- challenged or re-treated. [x] May remove PICC line when treatment complete, after confirming with Physician. [x] If the patient is admitted to the hospital, the ED, or transferred via [facility] , complete transfer form including medication reconciliation order sheet. Laboratory Tests Weekly Labs: CBC w/diff, Creatinine, LFT's (Hepatic function test) Additional Information Please draw weekly lab on Wednesday, Fax labs to number below, Call with abnormals , change in clinical condition or problems to: or covering ID Physician Counseling: Counseled about medication side effects Counseled about PICC line care and hand hygiene. Counseled about diarrhea and importance of early testing. Blanquita Hopkins MD Dec 14, 2017 22:12
[2017-12-14] MEDS: ACETAMINOPHEN 325 MG TAB PO PRN (22:14)
[2017-12-14] MEDS ORDERED: UNAS3INJ IV (22:15)
[2017-12-14] MEDS ORDERED: SOLU250I IV PUSH (22:15)
[2017-12-14] MEDS ORDERED: EPIN1INJ21 IV PUSH (22:15)
[2017-12-14] MEDS ORDERED: EPIN1INJ21 SQ (22:15)
[2017-12-15] VITALS (7 sets, daily range): BP systolic 118–150; BP diastolic 57–76; PULSE 49–80; RESP 17–21; TEMP 97.1–98.3; O2SAT 92–96
[2017-12-15] MEDS: SUMAtriptan SUCCINATE 20 MG/ACT NASAL SPRAY NASAL PRN (00:59)
[2017-12-15] MEDS: HEPARIN SODIUM - SQ 10,000 UNITS/ML VIAL SQ SCH ×3 (01:01→16:00)
[2017-12-15] MEDS: AMPICILLIN-SULBACTAM INJ 3 GM in SODIUM CHLORIDE 0.9% INJ 100 ML IV SCH ×3 (01:01→13:51)
[2017-12-15] MEDS: CHLORHEXIDINE GLUCONATE 2 % 1 PACK (2 CLOTHS) TOP SCH (04:00)
[2017-12-15] MEDS: CARBIDOPA/LEVODOPA 25 MG/100 MG TAB PO SCH ×2 (06:01→13:51)
[2017-12-15] MEDS: ACETAMINOPHEN 325 MG TAB PO PRN (06:01)
[2017-12-15] MEDS: RESP: TOBRAMYCIN SULFATE 300 MG/5 ML NEB NEB SCH (07:51)
[2017-12-15] MEDS: INSULIN ASPART SUPPLEMENTAL SCALE SQ SCH ×3 (08:00→17:00)
[2017-12-15] MEDS: MOVANTIK 25 MG PO SCH (09:00)
[2017-12-15] MEDS ORDERED: SODIUM CHLORIDE 0.9% FLUSH 10 ML FLUSH IV FLUSH SCH (09:00)
[2017-12-15] MEDS: AMIODARONE 200 MG TAB PO SCH (10:21)
[2017-12-15] MEDS: SODIUM CHLORIDE 0.9% FLUSH 10 ML FLUSH IV FLUSH SCH (10:21)
[2017-12-15] MEDS: guaiFENesin E.R. 600 MG TAB PO SCH (10:21)
[2017-12-15] MEDS: ASPIRIN 81 MG CHEW TAB CHEW SCH (10:22)
[2017-12-15] MEDS: LIPASE/PROTEASE/AMYLASE (24,000/76,000/120,000) CAP PO SCH ×2 (10:22→13:30)
[2017-12-15] MEDS: DULoxetine HCl DR 60 MG CAP PO SCH (10:22)
[2017-12-15] MEDS: ESCITALOPRAM OXALATE 10 MG TAB PO SCH (10:22)
[2017-12-15] MEDS: predniSONE 10 MG TAB PO SCH (10:22)
[2017-12-15] MEDS: LISINOPRIL 5 MG TAB PO SCH (10:22)
[2017-12-15] MEDS: FAMOTIDINE 20 MG TAB PO SCH (10:22)
[2017-12-15] MEDS: PREGABALIN 100 MG CAP PO SCH ×2 (10:22→13:51)
[2017-12-15] MEDS: TOPIRAMATE 25 MG TAB PO SCH (10:22)
[2017-12-15] MEDS: DOCUSATE SODIUM 50 MG/SENNA 8.6 MG TAB PO SCH (10:22)
[2017-12-15] MEDS: PT OWN LINZESS 145 MCG PO SCH (10:24)
[2017-12-15] MEDS: glipiZIDE 5 MG TAB PO SCH ×2 (10:31→17:00)
--- NOTE | 2017-12-15 12:44 | HHI.DS ---
Discharge Summary Admission Date Dec 03, 2017 at 23:28 Discharge Date: Dec 15, 2017 Admitting Diagnosis Pneumonia, hypoxia, hyperkalemia (1) MDR Acinetobacter baumannii infection ICD Code: A49.9 - Bacterial infection, unspecified; Z16.24 - Resistance to multiple antibiotics (2) Acute on chronic renal insufficiency ICD Code: N17.9 - Acute on chronic renal insufficiency; N18.9 - Chronic kidney disease, unspecified Status: Acute (3) Pneumonia ICD Code: J18.9 - Pneumonia, unspecified organism Procedures PICC line placement Brief History - From Admission 77-year-old gentleman with past medical history of of Monoclonal gammopathy, DGD , Hyperlipidemia, CVA, chronic pancreatitis GERD, was just discharged yesterday after he was treated for community-acquired pneumonia. He woke up today in the morning at home, didn't feel well, and again was feeling short of breath. He denies a chest pain nausea vomiting or any other associated symptoms. He returned back to emergency department where his chest x-ray shows worsening bilateral infiltrates, his O2 sat on room air was found to be in 80s. He was placed on the BiPAP with improvement of symptoms and is now admitted to intensive care unit. CBC/BMP: 12/11/17 0605 12/11/17 0605 Significant Findings Laboratory Tests Test 12/14/17 04:30 Imaging Last Impressions Chest X-Ray 12/14/17 0600 Signed Impressions: Service Date/Time: Thursday, December 14, 2017 05:38 - CONCLUSION: 1. Minimal left basilar scarring. 2. Right upper lobe density has almost completely resolved. Tejas Duke MD CT Angiography 12/03/17 194 Signed Impressions: Service Date/Time: Sunday, December 03, 2017 22:54 - CONCLUSION: 1. Somewhat limited exam of minimal contrast in the pulmonary artery. No large central pulmonary embolus, however. 2. However, oblique patient's symptoms are probably related to worsening pneumonic infiltrates. New interstitial process posteriorly in the right upper lobe with areas of consolidation in both lung bases, left worse than right. Percy Ferraro MD PE at Discharge Clear lungs bilaterally, unlabored breathing, on room air, no cyanosis Hospital Course Patient was admitted to the ICU and placed on BiPAP. He was started on IV fluids and IV antibiotics. Cardiology was also consulted for tachyarrhythmias and the patient was started on IV amiodarone A. fib which was transitioned to p.o. successfully. Infectious disease was consulted and eventually adjusted the abx based on the sputum cx growing multidrug resistant Acinetobacter. His respiratory status stabilized and was tolerating room air very well. His chest x-ray showed resolution of his pneumonia. Patient has met maximal benefit from hospitalization and is clinically stable for discharge with home care with outpatient IV antibiotics per infectious disease. Pt Condition on Discharge: Stable Discharge Disposition: Disch w/ Home Health Serv Discharge Time: <= 30 minutes Discharge Instructions Follow up Referrals: PCP Follow-up - 1 Week Pulmonology - 10 Days New Medications: Ampicillin-Sulbactam Inj (Unasyn Inj) 3 Gm Vial 3 GM IV Q6H for Infection for 7 Days, #40 BAG 0 Refills Epinephrine Inj (Epinephrine Inj) 1 Mg/Ml (1 Ml) Inj 0.3 MG IV PUSH ONCE PRN for ALLERGIC REACTION, #1 VIAL Epinephrine Inj (Epinephrine Inj) 1 Mg/Ml (1 Ml) Inj 0.3 MG SQ ONCE PRN for ALLERGIC REACTION, #1 VIAL Give with any signs of respiratory distress. Hydrocortisone Inj (Solu-Cortef Inj) 250 Mg/2 Ml Inj 250 MG IV PUSH ONCE PRN for ALLERGIC REACTION, #1 VIAL 0 Refills Give over 30-60 seconds. Continued Medications: Acetylcysteine Liq/Neb (Acetylcysteine Liq/Neb) 200 mg/ml Soln 2 ML NEB QID for Breathing Treatment, #180 NEBULE 0 Refills Aspirin (Aspirin Low Dose) 81 Mg Chew 81 MG CHEW DAILY, TAB 0 Refills Carbidopa-Levodopa (Carbidopa-Levodopa) 25-100 Mg Tab 1 TAB PO Q8HR for Parkinson Disease Mgmt, #90 TAB 0 Refills Donepezil (Aricept) 23 Mg Tab 10 MG PO HS, TAB Do not split, crushed or chewed. Duloxetine DR (Cymbalta DR) 60 Mg Capdr 60 MG PO DAILY, #30 CAP 0 Refills Escitalopram (Lexapro) 10 Mg Tab 10 MG PO DAILY, #30 TAB [address] (Nexium) 40 Mg Capdr 40 MG PO DAILY, CAP 0 Refills Glipizide (Glucotrol) 5 Mg Tab 5 MG PO BID@08,17 for Blood Sugar Management, #60 TAB Take 30 minutes before a meal Ipratropium-Albuterol Neb (Duoneb) 0.5-2.5 Mg/3 Ml Neb 1 NEBULE INH Q4HR NEB for Breathing Treatment, #180 NEBULE 0 Refills Linaclotide (Linzess) 145 Mcg Cap 145 MCG PO DAILY, CAP 0 Refills Lisinopril (Lisinopril) 2.5 Mg Tab 2.5 MG PO DAILY, #30 TAB 0 Refills Naloxegol (Movantik) 25 Mg Tab 25 MG PO DAILY for Prevent Constipation, #30 TAB 0 Refills Pancrelipase (Zenpep) 25,000-85,000-136,000 Units Cap 1 CAP PO TIDPC for Digestive Aid, #90 CAP 0 Refills Polyethylene Glycol 3350 Powder (Miralax Powder) 17 Gm Powd 17 GM PO DAILY for Constipation, #1 CAN 0 Refills Mix and dissolve one measuring cap-ful (17 grams) in water or juice. Pregabalin (Lyrica) 200 Mg Cap 200 MG PO TID, #90 CAP 0 Refills Sucralfate (Carafate) 1 Gm Tab 1 GM PO QID for Ulcer Prevention, #120 TAB 0 Refills On empty stomach Temazepam (Temazepam) 30 Mg Cap 30 MG PO HS PRN for INSOMNIA, #30 CAP 0 Refills Topiramate (Topamax) 25 Mg Tab 25 MG PO BID for Control Seizures, #60 TAB 0 Refills [Acetamin-Codeine 120-12 Liq] () 5 ML ELIX 5 ML PO Q4H PRN for persistent cough , #1 BOTTLE Discontinued Medications: Fluconazole (Diflucan) 200 Mg Tab 200 MG PO DAILY for yeast infection, #4 TAB Levofloxacin (Levofloxacin) 750 Mg Tablet 750 MG PO DAILY for Infection, #4 TAB 0 Refills Favian Dey MD Dec 15, 2017 12:44
[2017-12-15] MEDS ORDERED: AMIO200T PO (12:56)
[2017-12-15] MEDS ORDERED: PRED5TAB PO (12:56)
[2017-12-15] MEDS ORDERED: WALKER WHEELS/F1 MIS (13:40)
== END 2017-12-15 17:55 | disposition home health service (06) | DRG 177 ==
LOC: NEPC 18:47 → NEDA 23:28 → HIME 12-04 00:50 → N07A 12-12 18:17
PROVIDERS: ADMIT Hospitalist; ATTEND Hospitalist
PROC: 5A09357 Assistance with Respiratory Ventilation, Less than 24 Consecutive Hours, Continuous Positive Airway Pressure (ICD-10-PCS; principal; 2017-12-03)
PROC: 02HV33Z Insertion of Infusion Device into Superior Vena Cava, Percutaneous Approach (ICD-10-PCS; 2017-12-14)
DX: J15.6 Pneumonia due to other Gram-negative bacteria (principal); J96.91 Respiratory failure, unspecified with hypoxia; N17.9 Acute kidney failure, unspecified; I48.91 Unspecified atrial fibrillation; E09.22 Drug or chemical induced diabetes mellitus with diabetic chronic kidney disease; G20 Parkinson's disease; K86.1 Other chronic pancreatitis; E87.5 Hyperkalemia; R00.1 Bradycardia, unspecified; I12.9 Hypertensive chronic kidney disease with stage 1 through stage 4 chronic kidney disease, or unspecified chronic kidney disease; G43.909 Migraine, unspecified, not intractable, without status migrainosus; D47.2 Monoclonal gammopathy; N18.9 Chronic kidney disease, unspecified; K21.9 Gastro-esophageal reflux disease without esophagitis; E78.5 Hyperlipidemia, unspecified; M54.5 Low back pain; G89.29 Other chronic pain; F32.9 Major depressive disorder, single episode, unspecified; T38.0X5A Adverse effect of glucocorticoids and synthetic analogues, initial encounter; R00.0 Tachycardia, unspecified; Z96.653 Presence of artificial knee joint, bilateral; M19.90 Unspecified osteoarthritis, unspecified site; Z16.24 Resistance to multiple antibiotics; I25.10 Atherosclerotic heart disease of native coronary artery without angina pectoris; Y95 Nosocomial condition; Z86.73 Personal history of transient ischemic attack (TIA), and cerebral infarction without residual deficits; Z87.01 Personal history of pneumonia (recurrent); Z72.0 Tobacco use; Z79.82 Long term (current) use of aspirin; Z79.84 Long term (current) use of oral hypoglycemic drugs
CPT/HCPCS: 36569; 36600; 71045; 71275; 76937; 80048; 80053; 80202; 82550; 82805; 82948; 83036; 83605; 83735; 83880; 84100; 84145; 84439; 84443; 84484; 85007; 85025; 85027; 85610; 85730; 87015; 87040; 87070; 87077; 87102; 87116; 87186; 87205; 87206; 87641; 93005; 94002; 94003; 94150; 94640; 94664; 96365; 96366; 96372; 96375; J0131; J0282; J0295; J0456; J0692; J1642; J1644; J1815; J3030; J3370; J7030; J7040; J7050; J7512; J7682; Q9967

== ENCOUNTER 2018-01-06 14:40 | Observation (INO) | payer MEDICARE ==
[~2018-01-06] VITALS: Ht 188 cm; Wt 111.8 kg
[~2018-01-06 14:40] MED LIST changes: +AMIO200T PO; -ARIC10TA PO; +ARIC23TA PO; -ASPI1TAB69 PO; +ASPI81CH6 CHEW; +ATORVASTATIN 80 MG TAB PO SCH; -DIFL200T PO; +EPIN1INJ21 IV PUSH; +EPIN1INJ21 SQ; -HYDR-3533 PO; -LEVO750T3 PO; -PRED10 PO; +PRED5TAB PO; +SOLU250I IV PUSH; +UNAS3INJ IV; +WALKER WHEELS/F1 MIS
[2018-01-06 14:44] VITALS: BP 165/82; PULSE 54; RESP 16; TEMP 97.8; O2SAT 99
[2018-01-06] MEDS ORDERED: PROCHLORPERAZINE INJ 10 MG/2 ML VIAL IV PUSH ONE (15:15)
[2018-01-06] MEDS ORDERED: MORPHINE SULFATE 8 MG/ML INJ IV PUSH ONE (15:15)
--- NOTE | 2018-01-06 15:36 | PD ---
HPI Chief Complaint: Headache Time Seen by Provider: 14:49 Travel History International Travel<30 days: No Contact w/Intl Traveler<30days: No Traveled to known affect area: No History of Present Illness HPI Is a 77-year-old male with a history of Parkinson's disease, monoclonal gammopathy, diabetes mellitus, hypertension, who presents today with complaints of severe headache since yesterday. Patient states he was seen on the couch watching TV yesterday when he had a sudden onset of posterior headache. He states it lasted for about an hour. He states at that time he took his migraine medication. He states there is some improvement however the headache has returned and it is more severe. He reports that it starts in the back of his head and radiates to the top and front bilaterally. He reports associated blurry vision. He also reports associated unsteady gait. Patient states that he is also nauseous. He denies any vomiting. The patient has no previous history of similar headaches. He reports his migraine headaches present much differently. There is no reported fevers, chills. He does report associated neck pain and stiffness. He is currently taking an aspirin daily. He denies any other blood thinner use. The patient also reports severe dizziness. He states it is worse when he turns his head from side to side. There is no reported recent head trauma. PFSH Past Medical History Hx Anticoagulant Therapy: No (ASA 81 mg po daily) Arthritis: Yes Asthma: No Autoimmune Disease: No Blood Disorders: No Anxiety: No Depression: Yes Heart Rhythm Problems: No Cancer: No Cardiovascular Problems: No High Cholesterol: No Chemotherapy: No Chest Pain: No Congestive Heart Failure: No COPD: No Cerebrovascular Accident: Yes (R carotid arted stenosis repaired 4 years ago) Coronary Artery Disease: Yes Dementia: Yes Diabetes: Yes Diminished Hearing: No Endocrine: Yes Gastrointestinal Disorders: No GERD: Yes Glaucoma: No Genitourinary: Yes Headaches: Yes Hepatitis: No Hiatal Hernia: No Heparin Induced Thrombocytopen: No Immune Disorder: No Implanted Vascular Access Dvce: No Kidney Stones: Yes Musculoskeletal: Yes Neurologic: Yes Parkinson's Disease: Yes Psychiatric: No Reproductive: No Respiratory: No Integumentary: Yes (HX OF DERMATITIS SINCE SEP 2010) Immunizations Current: Yes Migraines: Yes Myocardial Infarction: No Pneumonia: Yes Radiation Therapy: No Renal Failure: No Seizures: No Sickle Cell Disease: No Sleep Apnea: No Thyroid Disease: No Ulcer: No Past Surgical History Abdominal Surgery: Yes (APPENDIX WHEN 12 YEARS OLD, GALL BLADDER REMOVAL 2017) AICD: No Appendectomy: Yes (12 years old of age ) Arteriovenous Shunt: No Body Medical Devices: SPINAL CORD IMPLANT Cardiac Surgery: Yes (RIGHT CAROTID ENDARECTOMY) Cholecystectomy: No Ear Surgery: No Endocrine Surgery: No Eye Surgery: Yes (CATARACTS) Genitourinary Surgery: No Gynecologic Surgery: No Insulin Pump: No Joint Replacement: Yes (BILATERAL KNEES -RIGHT PARTIAL KNEE-L TOTAL) Neurologic Surgery: No Oral Surgery: No Pacemaker: No Thoracic Surgery: No Other Surgery: Yes (BACK STIMULATOR- SPINAL CORD STIMULATOR PLACED IN LEFT BUTTOCKS, LT LEG FX) Social History Alcohol Use: Yes (SOCIALLY) Tobacco Use: No ("CIGAR ONCE IN A WHILE") Substance Use: No Allergies-Medications (Allergen,Severity, Reaction): Coded Allergies: No Known Allergies (Verified Allergy, Unknown, 11/14/17) Reported Meds & Prescriptions Reported Meds & Active Scripts Active Walker with Front Wheels (Device) 1 Mis Mis Ea .XX DIRECTED Prednisone 5 Mg Tab 5 Mg PO DAILY Amiodarone (Amiodarone HCl) 200 Mg Tab 200 Mg PO DAILY Unasyn Inj (Ampicillin-Sulbactam Inj) 3 Gm Vial 3 Gm IV Q6H 7 Days Epinephrine Inj 1 Mg/Ml (1 Ml) Inj 0.3 Mg SQ ONCE PRN Give with any signs of respiratory distress. Epinephrine Inj 1 Mg/Ml (1 Ml) Inj 0.3 Mg IV PUSH ONCE PRN Solu-Cortef Inj (Hydrocortisone Sodium Succinate) 250 Mg/2 Ml Inj 250 Mg IV PUSH ONCE PRN Give over 30-60 seconds. Acetylcysteine Liq/Neb (Acetylcysteine) 200 mg/ml Soln 2 Ml NEB QID Duoneb (Ipratropium-Albuterol Neb) 0.5-2.5 Mg/3 Ml Neb 1 Nebule INH Q4HR NEB Miralax Powder (Polyethylene Glycol 3350 Powder) 17 Gm Powd 17 Gm PO DAILY Mix and dissolve one measuring cap-ful (17 grams) in water or juice. Lisinopril 2.5 Mg Tab 2.5 Mg PO DAILY Sharpsafety Sharps Contai (Parenteral Therapy Supplies) 1 Mis Mis Ea .XX DIRECTED Glucocom Test Strips (Blood Glucose Test Strips) 1 Effie Effie Ea .XX DIRECTED Lancets 1 Mis Mis Ea .XX DIRECTED Glucocom Blood Glucose Mo W/Device (Device) 1 Kit Kit Kit .XX DIRECTED [Acetamin-Codeine 120-12 Liq] 5 ML Elix 5 Ml PO Q4H PRN Glucotrol (Glipizide) 5 Mg Tab 5 Mg PO BID@08,17 Take 30 minutes before a meal Reported Aricept (Donepezil) 23 Mg Tab 10 Mg PO HS Do not split, crushed or chewed. Aspirin Low Dose (Aspirin) 81 Mg Chew 81 Mg CHEW DAILY Lyrica (Pregabalin) 200 Mg Cap 200 Mg PO TID Viagra (Sildenafil Citrate) 100 Mg Tab 100 Mg PO DAILY PRN Zenpep (Pancrelipase) 25,000-85,000-136,000 Units Cap 1 Cap PO TIDPC Topamax (Topiramate) 25 Mg Tab 25 Mg PO BID Temazepam 30 Mg Cap 30 Mg PO HS PRN Nexium (Esomeprazole DR) 40 Mg Capdr 40 Mg PO DAILY Movantik (Naloxegol) 25 Mg Tab 25 Mg PO DAILY Linzess (Linaclotide) 145 Mcg Cap 145 Mcg PO DAILY Lexapro (Escitalopram Oxalate) 10 Mg Tab 10 Mg PO DAILY Cymbalta DR (Duloxetine HCl) 60 Mg Capdr 60 Mg PO DAILY Carafate (Sucralfate) 1 Gm Tab 1 Gm PO QID On empty stomach Carbidopa-Levodopa 25-100 Mg Tab 1 Tab PO Q8HR Review of Systems Except as stated in HPI: all other systems reviewed are Neg General / Constitutional: No: Fever, Chills HENT: Positive: Headaches, Lightheadedness, Neck Stiffness, Neck Pain Cardiovascular: No: Chest Pain or Discomfort, Palpitations Respiratory: No: Cough, Shortness of Breath Gastrointestinal: Positive: Nausea, No: Vomiting, Abdominal Pain Genitourinary: No: Dysuria, Incontinence Musculoskeletal: Positive: Weakness (Generalized), No: Pain Skin: No Rash, No Other Neurologic: Positive: Weakness, Dizziness, Headache, Change in Mentation ( states that he was confused last night.), Sensory Disturbance Psychiatric: No: Substance Abuse Physical Exam Narrative GENERAL: Well-developed well-nourished male in no acute respiratory distress. SKIN: Focused skin assessment warm/dry. HEAD: Atraumatic. Normocephalic. EYES: Pupils equal and round, extraocular motions were intact. No scleral icterus. No injection or drainage. ENT: No nasal bleeding or discharge. Mucous membranes pink and moist. NECK: Trachea midline. Patient reports subjective deafness and pain. No posterior spinous process tenderness. CARDIOVASCULAR: Regular rate and rhythm. No murmur appreciated. RESPIRATORY: No accessory muscle use. Clear to auscultation. Breath sounds equal bilaterally. GASTROINTESTINAL: Abdomen soft, non-tender, nondistended. Hepatic and splenic margins not palpable. MUSCULOSKELETAL: No obvious deformities. No clubbing. No cyanosis. No edema. NEUROLOGICAL: Awake and alert. No obvious cranial nerve deficits. Motor grossly within normal limits. Normal speech. The patient does have difficulty with heel to dominguez bilaterally however he does have Parkinson's. Data Data Last Documented VS Vital Signs Date Time Temp Pulse Resp B/P (MAP) Pulse Ox O2 Delivery O2 Flow Rate FiO2 01/06/18 18:51 60 17 100 Room Air 01/06/18 14:44 97.8 Orders Orders Complete Blood Count With Diff (01/06/18 15:08) Comprehensive Metabolic Panel (01/06/18 15:08) Prothrombin Time / Inr (Pt) (01/06/18 15:08) Act Partial Throm Time (Ptt) (01/06/18 15:08) Ct Brain W/O Iv Contrast(Rout) (01/06/18 15:08) Iv Access Insert/Monitor (01/06/18 15:08) Ecg Monitoring (01/06/18 15:08) Oximetry (01/06/18 15:08) Morphine Inj (Morphine Inj) (01/06/18 15:15) Prochlorperazine Inj (Compazine Inj) (01/06/18 15:15) Lumbar Puncture (01/06/18 ) Sumatriptan Inj (Imitrex Inj) (01/06/18 18:15) Csf Cell Count + Differential (01/06/18 18:07) Labs Laboratory Tests Test 01/06/18 15:52 White Blood Count 9.9 TH/MM3 Red Blood Count 4.47 MIL/MM3 Hemoglobin 13.9 GM/DL Hematocrit 40.7 % Mean Corpuscular Volume 91.1 FL Mean Corpuscular Hemoglobin 31.0 PG Mean Corpuscular Hemoglobin Concent 34.0 % Red Cell Distribution Width 17.6 % Platelet Count 164 TH/MM3 Mean Platelet Volume 8.5 FL Neutrophils (%) (Auto) 55.3 % Lymphocytes (%) (Auto) 33.1 % Monocytes (%) (Auto) 8.6 % Eosinophils (%) (Auto) 1.8 % Basophils (%) (Auto) 1.2 % Neutrophils # (Auto) 5.5 TH/MM3 Lymphocytes # (Auto) 3.3 TH/MM3 Monocytes # (Auto) 0.8 TH/MM3 Eosinophils # (Auto) 0.2 TH/MM3 Basophils # (Auto) 0.1 TH/MM3 CBC Comment DIFF FINAL Differential Comment Prothrombin Time 10.9 SEC Prothromb Time International Ratio 1.1 RATIO Activated Partial Thromboplast Time 25.7 SEC Blood Urea Nitrogen 14 MG/DL Creatinine 1.07 MG/DL Random Glucose 57 MG/DL Total Protein 6.7 GM/DL Albumin 3.2 GM/DL Calcium Level 8.4 MG/DL Alkaline Phosphatase 93 U/L Aspartate Amino Transf (AST/SGOT) 51 U/L Alanine Aminotransferase (ALT/SGPT) 21 U/L Total Bilirubin 0.5 MG/DL Sodium Level 142 MEQ/L Potassium Level 4.6 MEQ/L Chloride Level 109 MEQ/L Carbon Dioxide Level 26.7 MEQ/L Anion Gap 6 MEQ/L Estimat Glomerular Filtration Rate 67 ML/MIN MDM Medical Decision Making Medical Screen Exam Complete: Yes Emergency Medical Condition: Yes Differential Diagnosis Subarachnoid hemorrhage versus migraine variant versus dehydration Narrative Course 77-year-old male with a history of Parkinson's disease, migraine headaches, presents today with sudden onset of headache yesterday. Patient also has blurry vision and ataxia. The patient's CT scan was negative. Given his sudden onset and the severity of headache and it not being like his previous migraine headaches, patient had an LP performed by interventional radiology. Interventional radiology perform the LP secondary to him having a spinal stimulator in his lumbar spine. Results are pending at this time. Patient still has a headache. He has been signed out to Dr. Phillips, physician replaced me at change of shift. She will follow-up on the laboratory tests. If he is still symptomatic, he will likely need to be admitted even if his LP results are negative. I discussed this with both the patient and his and they are amenable to the plan. Diagnosis Primary Impression: Cephalgia Additional Impressions: Ataxia History of Parkinson's disease Diabetes mellitus Patrice Hatch MD Jan 06, 2018 15:36
[2018-01-06 15:45] VITALS: O2SAT 94
[2018-01-06 16:10] LABS: AUTOMATED NEUTROPHIL # 5.5 TH/MM3 (1.8-7.7); BASOPHIL # 0.1 TH/MM3 (0-0.2); BASOPHIL % 1.2 % (0.0-2.0); EOSINOPHIL # 0.2 TH/MM3 (0-0.4); EOSINOPHIL % 1.8 % (0.0-4.0); HEMATOCRIT 40.7 % (39.0-51.0); HEMOGLOBIN 13.9 GM/DL (13.0-17.0); LYMPH % 33.1 % (9.0-44.0); LYMPHOCYTE # 3.3 TH/MM3 (1.0-4.8); MEAN CELL VOLUME 91.1 FL (80.0-100.0); MEAN PLATELET VOLUME 8.5 FL (7.0-11.0); MONO % 8.6 % (0.0-8.0); MONOCYTE # 0.8 TH/MM3 (0-0.9); NEUT % 55.3 % (16.0-70.0); PLATELET COUNT 164 TH/MM3 (150-450); RED BLOOD COUNT 4.47 MIL/MM3 (4.50-5.90); RED CELL DISTRIBUTION WIDTH 17.6 % (11.6-17.2); WHITE BLOOD COUNT 9.9 TH/MM3 (4.0-11.0)
[2018-01-06 16:27] LABS: INTERNATIONAL NORMALIZED RATIO 1.1 RATIO; PROTHROMBIN TIME - PATIENT 10.9 SEC (9.8-11.6)
[2018-01-06 16:36] LABS: ALT (GPT) 21 U/L (12-78)
[2018-01-06 16:38] LABS: ALKALINE PHOSPHATASE 93 U/L (45-117); TOTAL BILIRUBIN ADULT 0.5 MG/DL (0.2-1.0); TOTAL PROTEIN 6.7 GM/DL (6.4-8.2)
[2018-01-06 16:43] LABS: ALBUMIN 3.2 GM/DL (3.4-5.0); AST (GOT) 51 U/L (15-37); BICARBONATE 26.7 MEQ/L (21.0-32.0); BLOOD UREA NITROGEN 14 MG/DL (7-18); CALCIUM 8.4 MG/DL (8.5-10.1); CHLORIDE 109 MEQ/L (98-107); CREATININE 1.07 MG/DL (0.60-1.30); GLOMERULAR FILTRATION RATE 67 ML/MIN (>89); GLUCOSE,RANDOM 57 MG/DL (74-106); SODIUM (NA) 142 MEQ/L (136-145)
--- NOTE | 2018-01-06 16:51 | RADRPT ---
EXAM DATE/TIME: 01/06/2018 16:26 [facility] COMPARISON: CT BRAIN W/O CONTRAST, October 02, 2015, 16:42. INDICATIONS : Dizziness; cephalgia. RADIATION DOSE: 64.63 CTDIvol (mGy) MEDICAL HISTORY : Dementia. Parkinsons. SURGICAL HISTORY : None. ENCOUNTER: Initial ACUITY: 1 day PAIN SCALE: 8/10 LOCATION: cranial TECHNIQUE: Multiple contiguous axial images were obtained of the head. Using automated exposure control and adj ustment of the mA and/or kV according to patient size, radiation dose was kept as low as reasonably a chievable to obtain optimal diagnostic quality images. DICOM format image data is available electro nically for review and comparison. FINDINGS: CEREBRUM: The ventricles are normal for age. No evidence of midline shift, mass lesion, hemorrhage or acute in farction. No extra-axial fluid collections are seen. POSTERIOR FOSSA: The cerebellum and brainstem are intact. The 4th ventricle is midline. The cerebellopontine angle i s unremarkable. EXTRACRANIAL: The visualized portion of the orbits is intact. SKULL: The calvaria is intact. No evidence of skull fracture. CONCLUSION: 1. Stable evaluation of the brain. 2. No evidence of acute infarct, hemorrhage, mass or edema. Emerson Hyde MD on January 06, 2018 at 16:48 Board Certified Radiologist. This report was verified electronically.
[2018-01-06 17:29] VITALS: BP 136/80; PULSE 65; RESP 17; O2SAT 95
[2018-01-06] MEDS ORDERED: SUMAtriptan INJ 6 MG/0.5 ML VIAL SQ ONE (18:15)
[2018-01-06 18:51] VITALS: PULSE 60; RESP 17; O2SAT 100
[2018-01-06 19:25] VITALS: BP_SYST 172; BP_SYST 198; BP_DIAS 85; PULSE 57; RESP 18; O2SAT 90; O2SAT 96
[2018-01-06 20:36] LABS: SUPERNATE COLOR TUBE #1 CLEAR (CLEAR)
[2018-01-06 21:26] LABS: CSF LYMPHOCYTES 8 %; CSF MONOCYTES 52 %; CSF NEUTROPHILS 40 %
[2018-01-06 21:27] LABS: RBC TUBE #4 40 /MM3; WBC TUBE #4 11 /MM3 (0-10)
[2018-01-06] MEDS ORDERED: IOHEXOL 350 MG/ML 50 ML BTL (for RAD DIAG) IVCONTRAST ONE (21:57)
[2018-01-06] MEDS ORDERED: ACETAMINOPHEN/HYDROcodone 325 MG/5 MG TAB PO PRN (22:00)
[2018-01-06] MEDS ORDERED: BISACODYL 10 MG SUPP RECTAL PRN (22:00)
[2018-01-06] MEDS ORDERED: ACETAMINOPHEN 325 MG TAB PO PRN (22:00)
[2018-01-06] MEDS ORDERED: SODIUM CHLORIDE 0.9% FLUSH 10 ML FLUSH IV FLUSH PRN (22:00)
[2018-01-06] MEDS ORDERED: SENNOSIDES 8.6 MG TAB PO PRN (22:00)
[2018-01-06] MEDS ORDERED: MAGNESIUM HYDROXIDE SUSP 30 ML CUP PO PRN (22:00)
[2018-01-06] MEDS ORDERED: LACTULOSE SYRUP 20 GM/30 ML CUP PO PRN (22:00)
--- NOTE | 2018-01-06 22:05 | HHI.HP ---
HPI Service [facility] Primary Care Physician Non-Staff Admission Diagnosis Ataxia, cephalgia Diagnoses: (1) Cephalgia Diagnosis: Principal (2) Ataxia Diagnosis: Principal (3) Parkinson's disease Diagnosis: Principal (4) DM (diabetes mellitus) Diagnosis: Principal Travel History International Travel<30 Days: No Contact w/Intl Traveler <30 Da: No Traveled to Known Affected Are: No History of Present Illness This is a 77-year-old male with a PMH of Depression, Parkinson's Disease, Monoclonal Gammopathy, Migraine, HTN and DM who presented to the ER w/ complaints of headache x1 day. States symptoms worse than his usual migraines, took Imitrex w/ minimal relief. Reports frontal headache, 10/10, severe, non- radiating w/ associated blurry vision and gait instability. No h/o similar symptoms. Does follow w/ Neurology for Parkinson's Disease. No fever, chills, neck pain/stiffness, back pain or sick contacts. No motor weakness or facial droop. On arrival, BP 165/82, HR 54, O2 sat 99% RA, Afebrile. CBC essentially unremarkable. Chemistry unremarkable except for GFR 67. INR 1.1. CT Head stable, no acute infarct, hemorrhage, mass or edema. S/p LP w/ essentially normal findings. Symptoms now improved. Review of Systems Except as stated in HPI: all other systems reviewed are Neg ROS: 14 point review of systems otherwise negative. Past Family Social History Past Medical History PMH: Depression, Parkinson's Disease, Monoclonal Gammopathy, Migraine, HTN and DM Past Surgical History PAST SURGICAL HISTORY: Appendectomy, Cholecystectomy, Spinal Cord Implant, Right CEA, Cataract Surgery, Bilateral Knee Replacement Allergies: Coded Allergies: No Known Allergies (Verified Allergy, Unknown, 11/14/17) Family History PAST FAMILY HISTORY: Reviewed. No h/o DM or CAD Social History PAST SOCIAL HISTORY: Occasional alcohol and cigar. Negative for drugs. Physical Exam Vital Signs Vital Signs Date Time Temp Pulse Resp B/P (MAP) Pulse Ox O2 Delivery O2 Flow Rate FiO2 01/06/18 19:25 57 18 172/85 (114) 96 Nasal Cannula 2.00 4/19/18 19:25 18 90 Room Air 01/06/18 18:51 60 17 100 Room Air 01/06/18 17:29 65 17 136/80 (98) 95 Room Air 01/06/18 15:45 94 01/06/18 14:44 97.8 54 16 165/82 (109) 99 Physical Exam PE: GENERAL: Very pleasant elderly white male in no acute distress. HEENT: PERRLA, EOMI. No scleral icterus or conjunctival pallor. No lid lag or facial droop. CARDIOVASCULAR: Regular rate and rhythm. No obvious murmurs to auscultation. No chest tenderness to palpation. RESPIRATORY: No obvious rhonchi or wheezing. Clear to auscultation. Breath sounds equal bilaterally. GASTROINTESTINAL: Abdomen soft, non-tender, nondistended. BS normal. MUSCULOSKELETAL: Extremities without clubbing, cyanosis, or edema. No obvious deformities. NEUROLOGICAL: Awake, alert and oriented x4. No focal neurologic deficits. Moving both upper and lower extremities spontaneously. Laboratory Laboratory Tests Test 01/06/18 15:52 01/06/18 18:20 White Blood Count 9.9 Red Blood Count 4.47 Hemoglobin 13.9 Hematocrit 40.7 Mean Corpuscular Volume 91.1 Mean Corpuscular Hemoglobin 31.0 Mean Corpuscular Hemoglobin Concent 34.0 Red Cell Distribution Width 17.6 Platelet Count 164 Mean Platelet Volume 8.5 Neutrophils (%) (Auto) 55.3 Lymphocytes (%) (Auto) 33.1 Monocytes (%) (Auto) 8.6 Eosinophils (%) (Auto) 1.8 Basophils (%) (Auto) 1.2 Neutrophils # (Auto) 5.5 Lymphocytes # (Auto) 3.3 Monocytes # (Auto) 0.8 Eosinophils # (Auto) 0.2 Basophils # (Auto) 0.1 CBC Comment DIFF FINAL Differential Comment Prothrombin Time 10.9 Prothromb Time International Ratio 1.1 Activated Partial Thromboplast Time 25.7 Blood Urea Nitrogen 14 Creatinine 1.07 Random Glucose 57 Total Protein 6.7 Albumin 3.2 Calcium Level 8.4 Alkaline Phosphatase 93 Aspartate Amino Transf (AST/SGOT) 51 Alanine Aminotransferase (ALT/SGPT) 21 Total Bilirubin 0.5 Sodium Level 142 Potassium Level 4.6 Chloride Level 109 Carbon Dioxide Level 26.7 Anion Gap 6 Estimat Glomerular Filtration Rate 67 CSF Volume (Tube 1) 2.0 CSF Supernatant Color (tube 1) CLEAR CSF Gross Blood (Tube 1) 0 CSF Volume (Tube 2) 2.0 CSF Supernatant Color (tube 2) CLEAR CSF Gross Blood (Tube 2) 0 CSF Volume (Tube 3) 4.0 CSF Supernatant Color (tube 3) CLEAR CSF Gross Blood (Tube 3) 0 CSF Volume (Tube 4) 8.0 CSF Supernatant Color (tube 4) CLEAR CSF WBC (Tube 4) 11 CSF RBC (Tube 4) 40 CSF Neutrophils 40 CSF Lymphocytes 8 CSF Monocytes 52 Result Diagram: 01/06/18155101/06/181551 Caprini VTE Risk Assessment Caprini VTE Risk Assessment: No/Low Risk (score <= 1) Caprini Risk Assessment Model Point Value = 1 Point Value = 2 Point Value = 3 Point Value = 5 Age 41-60 Minor surgery BMI > 25 kg/m2 Swollen legs Varicose veins or History of unexplained or recurrent spontaneous Oral contraceptives or hormone replacement Sepsis (< 1 month) Serious lung disease, including pneumonia (< 1 month) Abnormal pulmonary function Acute myocardial infarction Congestive heart failure (< 1 month) History of inflammatory bowel disease Medical patient at bed rest Age 61-74 Arthroscopic surgery Major open surgery (> 45 min) Laparoscopic surgery (> 45 min) Malignancy Confined to bed (> 72 hours) Immobilizing plaster cast Central venous access Age >= 75 History of VTE Family history of VTE Factor V Leiden Prothrombin [id number] Lupus anticoagulant Anticardiolipin antibodies Elevated serum homocysteine Heparin-induced thrombocytopenia Other congenital or acquired thrombophilia Stroke (< 1 month) Elective arthroplasty Hip, pelvis, or leg fracture Acute spinal cord injury (< 1 month) Prophylaxis Regimen Total Risk Factor Score Risk Level Prophylaxis Regimen 0-1 Low Early ambulation 2 Moderate Order ONE of the following: *Sequential Compression Device (SCD) *Heparin 5000 units SQ BID 3-4 Higher Order ONE of the following medications: *Heparin 5000 units SQ TID *Enoxaparin/Lovenox 40 mg SQ daily (WT < 150 kg, CrCl > 30 mL/min) *Enoxaparin/Lovenox 30 mg SQ daily (WT < 150 kg, CrCl > 10-29 mL/min) *Enoxaparin/Lovenox 30 mg SQ BID (WT < 150 kg, CrCl > 30 mL/min) AND/OR *Sequential Compression Device (SCD) 5 or more Highest Order ONE of the following medications: *Heparin 5000 units SQ TID (Preferred with Epidurals) *Enoxaparin/Lovenox 40 mg SQ daily (WT < 150 kg, CrCl > 30 mL/min) *Enoxaparin/Lovenox 30 mg SQ daily (WT < 150 kg, CrCl > 10-29 mL/min) *Enoxaparin/Lovenox 30 mg SQ BID (WT < 150 kg, CrCl > 30 mL/min) AND *Sequential Compression Device (SCD) Assessment and Plan Problem List: (1) Cephalgia ICD Code: R51 - Headache Status: Acute (2) Ataxia ICD Code: R27.0 - Ataxia, unspecified (3) Parkinson's disease ICD Code: G20 - Parkinson's disease (4) DM (diabetes mellitus) ICD Code: E11.9 - Type 2 diabetes mellitus without complications Assessment and Plan A/P: 1. Cephalgia: h/o Migraine, reports pain more severe, associated w/ blurry vision/ataxia. CT Head w/ no acute findings, images reviewed by me. LP by IR in light of spinal cord stimulator, CSF results essentially negative. Continue w/ Imitrex prn, analgesia as needed. 2. Ataxia: w/ associated headache, CT Head w/ no acute findings. Consult Neurology for further recommendations/intervention. PT for eval/tx. 3. Parkinson's Disease: resume home medications, PT for eval/tx. 4. DM: Sliding scale w/ Accu-Cheks. Serum BS 57, will monitor closely for hypoglycemia, hold home Glipizide for now. 5. DVT Prophylaxis: SCD/Teds 6. Social work for d/c planning as needed. 7. Case discussed w/ ER physician at length, labs/records/imaging reviewed by me. Problem Qualifiers (1) Cephalgia: Qualified Codes: R51 - Headache Payal Boland MD Jan 06, 2018 22:05
[2018-01-06] MEDS ORDERED: LISI10TA3 PO (22:26)
[2018-01-06] MEDS ORDERED: LYRI100C PO (22:26)
[2018-01-06] MEDS ORDERED: ZENP PO (22:26)
[2018-01-06] MEDS ORDERED: CARA1TAB6 PO (22:26)
[2018-01-06] MEDS ORDERED: LINA145C PO (22:26)
[2018-01-06] MEDS ORDERED: DICL1KIT5 TOPICAL (22:26)
[2018-01-06] MEDS ORDERED: CELE200C PO (22:26)
[2018-01-06] MEDS ORDERED: SUMA6P SQ (22:26)
[2018-01-06] MEDS ORDERED: PRED10 PO (22:26)
[2018-01-06] MEDS ORDERED: ROSU40 PO (22:26)
[2018-01-06] MEDS ORDERED: NEXI40CA PO (22:26)
[2018-01-06 22:33] VITALS: BP 160/75; PULSE 58; RESP 20; O2SAT 96
--- NOTE | 2018-01-06 22:36 | PD ---
Physical Exam Narrative GENERAL: 77 y/o male in no apparent distress SKIN: Focused skin assessment warm/dry. HEAD: Atraumatic. Normocephalic. EYES: No scleral icterus. No injection or drainage. ENT: No nasal bleeding or discharge. Mucous membranes pink and moist. NECK: Trachea midline. CARDIOVASCULAR: Regular rate and rhythm. RESPIRATORY: No accessory muscle use. No increased effort MUSCULOSKELETAL: No obvious deformities. No clubbing. No cyanosis. NEUROLOGICAL: Awake and alert. Moves all extremities. Normal speech. PSYCHIATRIC: Appropriate mood and affect; insight and judgment normal. Data Data Last Documented VS Vital Signs Date Time Temp Pulse Resp B/P (MAP) Pulse Ox O2 Delivery O2 Flow Rate FiO2 01/06/18 19:25 57 18 172/85 (114) 96 Nasal Cannula 2.00 01/06/18 14:44 97.8 Orders Orders Complete Blood Count With Diff (01/06/18 15:08) Comprehensive Metabolic Panel (01/06/18 15:08) Prothrombin Time / Inr (Pt) (01/06/18 15:08) Act Partial Throm Time (Ptt) (01/06/18 15:08) Ct Brain W/O Iv Contrast(Rout) (01/06/18 15:08) Iv Access Insert/Monitor (01/06/18 15:08) Ecg Monitoring (01/06/18 15:08) Oximetry (01/06/18 15:08) Morphine Inj (Morphine Inj) (01/06/18 15:15) Prochlorperazine Inj (Compazine Inj) (01/06/18 15:15) Lumbar Puncture (01/06/18 ) Sumatriptan Inj (Imitrex Inj) (01/06/18 18:15) Csf Cell Count + Differential (01/06/18 18:07) Admit Order (Ed Use Only) (01/06/18 21:55) Labs Laboratory Tests Test 01/06/18 15:52 01/06/18 18:20 White Blood Count 9.9 TH/MM3 Red Blood Count 4.47 MIL/MM3 Hemoglobin 13.9 GM/DL Hematocrit 40.7 % Mean Corpuscular Volume 91.1 FL Mean Corpuscular Hemoglobin 31.0 PG Mean Corpuscular Hemoglobin Concent 34.0 % Red Cell Distribution Width 17.6 % Platelet Count 164 TH/MM3 Mean Platelet Volume 8.5 FL Neutrophils (%) (Auto) 55.3 % Lymphocytes (%) (Auto) 33.1 % Monocytes (%) (Auto) 8.6 % Eosinophils (%) (Auto) 1.8 % Basophils (%) (Auto) 1.2 % Neutrophils # (Auto) 5.5 TH/MM3 Lymphocytes # (Auto) 3.3 TH/MM3 Monocytes # (Auto) 0.8 TH/MM3 Eosinophils # (Auto) 0.2 TH/MM3 Basophils # (Auto) 0.1 TH/MM3 CBC Comment DIFF FINAL Differential Comment Prothrombin Time 10.9 SEC Prothromb Time International Ratio 1.1 RATIO Activated Partial Thromboplast Time 25.7 SEC Blood Urea Nitrogen 14 MG/DL Creatinine 1.07 MG/DL Random Glucose 57 MG/DL Total Protein 6.7 GM/DL Albumin 3.2 GM/DL Calcium Level 8.4 MG/DL Alkaline Phosphatase 93 U/L Aspartate Amino Transf (AST/SGOT) 51 U/L Alanine Aminotransferase (ALT/SGPT) 21 U/L Total Bilirubin 0.5 MG/DL Sodium Level 142 MEQ/L Potassium Level 4.6 MEQ/L Chloride Level 109 MEQ/L Carbon Dioxide Level 26.7 MEQ/L Anion Gap 6 MEQ/L Estimat Glomerular Filtration Rate 67 ML/MIN CSF Volume (Tube 1) 2.0 ML CSF Supernatant Color (tube 1) CLEAR CSF Gross Blood (Tube 1) 0 CSF Volume (Tube 2) 2.0 ML CSF Supernatant Color (tube 2) CLEAR CSF Gross Blood (Tube 2) 0 CSF Volume (Tube 3) 4.0 ML CSF Supernatant Color (tube 3) CLEAR CSF Gross Blood (Tube 3) 0 CSF Volume (Tube 4) 8.0 ML CSF Supernatant Color (tube 4) CLEAR CSF WBC (Tube 4) 11 /MM3 CSF RBC (Tube 4) 40 /MM3 CSF Neutrophils 40 % CSF Lymphocytes 8 % CSF Monocytes 52 % MDM Supervised Visit with RAMA: No Interpretation(s) CSF with 40 RBCs Narrative Course Signed over to me to follow CSF and admit. CSF only shows mild RBCs. Patient states results his headache is feeling better, is concerned with his ataxia that he will fall as he has done this before. Agrees to observation overnight Physician Communication Physician Communication dr rudd agrees to admit Diagnosis Primary Impression: Cephalgia Qualified Codes: R51 - Headache Additional Impressions: Ataxia History of Parkinson's disease Admitting Information Admitting Physician Requests: Observation Zuleyka Phillips MD Jan 06, 2018 22:36
[2018-01-06] MEDS ORDERED: DEXTROSE 50% IN WATER 50 ML VIAL(D50) IV PUSH PRN (22:45)
[2018-01-06] MEDS ORDERED: TEMAZEPAM 15 MG CAP PO PRN (22:45)
[2018-01-06] MEDS ORDERED: GLUCAGON 1 MG/ML VIAL OTHER PRN (22:45)
[2018-01-06] MEDS ORDERED: PILL SPLITTER OTHER PRN (23:00)
[2018-01-06] MEDS: SODIUM CHLOR 0.9% 1000 ML INJ 1,000 ML IV SCH (23:28)
[2018-01-07] VITALS (7 sets, daily range): BP systolic 124–158; BP diastolic 62–86; PULSE 51–65; RESP 16–20; TEMP 97.3–98.2; O2SAT 93–97
[2018-01-07] MEDS: ACETAMINOPHEN/HYDROcodone 325 MG/10 MG TAB PO PRN ×2 (01:18→04:20)
[2018-01-07] MEDS: CARBIDOPA/LEVODOPA 25 MG/100 MG TAB PO SCH ×3 (07:48→23:13)
[2018-01-07] MEDS: SODIUM CHLOR 0.9% 1000 ML INJ 1,000 ML IV SCH ×2 (07:59→19:03)
[2018-01-07] MEDS: INSULIN ASPART SUPPLEMENTAL SCALE SQ SCH ×4 (08:00→23:15)
[2018-01-07 08:42] LABS: AUTOMATED NEUTROPHIL # 3.8 TH/MM3 (1.8-7.7); BASOPHIL # 0.1 TH/MM3 (0-0.2); BASOPHIL % 0.9 % (0.0-2.0); EOSINOPHIL # 0.3 TH/MM3 (0-0.4); EOSINOPHIL % 3.8 % (0.0-4.0); HEMATOCRIT 44.1 % (39.0-51.0); HEMOGLOBIN 14.6 GM/DL (13.0-17.0); LYMPHOCYTE # 3.2 TH/MM3 (1.0-4.8); MEAN CELL VOLUME 92.2 FL (80.0-100.0); MEAN CORPUSCULAR HEMOGLOBIN 30.6 PG (27.0-34.0); MEAN CORPUSCULAR HGB CONC 33.1 % (32.0-36.0); MEAN PLATELET VOLUME 8.6 FL (7.0-11.0); MONOCYTE # 0.6 TH/MM3 (0-0.9); NEUT % 47.3 % (16.0-70.0); PLATELET COUNT 157 TH/MM3 (150-450); RED BLOOD COUNT 4.78 MIL/MM3 (4.50-5.90); RED CELL DISTRIBUTION WIDTH 17.9 % (11.6-17.2)
[2018-01-07] MEDS ORDERED: LINACLOTIDE 145 MCG PO SCH (09:00)
[2018-01-07 09:11] LABS: ALBUMIN 3.4 GM/DL (3.4-5.0); AST (GOT) 23 U/L (15-37); BICARBONATE 25.5 MEQ/L (21.0-32.0); BLOOD UREA NITROGEN 15 MG/DL (7-18); CALCIUM 8.3 MG/DL (8.5-10.1); CHLORIDE 109 MEQ/L (98-107); CREATININE 1.08 MG/DL (0.60-1.30); GLOMERULAR FILTRATION RATE 67 ML/MIN (>89); GLUCOSE,RANDOM 134 MG/DL (74-106); SODIUM (NA) 141 MEQ/L (136-145)
[2018-01-07 09:12] LABS: ALT (GPT) 31 U/L (12-78)
[2018-01-07 09:14] LABS: ALKALINE PHOSPHATASE 99 U/L (45-117); TOTAL BILIRUBIN ADULT 0.6 MG/DL (0.2-1.0); TOTAL PROTEIN 6.7 GM/DL (6.4-8.2)
[2018-01-07] MEDS: SUCRALFATE 1 GM TAB PO SCH ×4 (09:15→23:11)
[2018-01-07] MEDS: DULoxetine HCl DR 60 MG CAP PO SCH (09:15)
[2018-01-07] MEDS: ASPIRIN 81 MG CHEW TAB CHEW SCH (09:16)
[2018-01-07] MEDS: ATORVASTATIN 80 MG TAB PO SCH (09:16)
[2018-01-07] MEDS: PREGABALIN 100 MG CAP PO SCH ×2 (09:16→23:12)
[2018-01-07] MEDS: PANTOPRAZOLE SOD 40 MG DELAYED RELEASE TAB PO SCH ×2 (09:16→23:12)
[2018-01-07] MEDS: predniSONE 5 MG TAB PO SCH (09:16)
[2018-01-07] MEDS: LIPASE/PROTEASE/AMYLASE (24,000/76,000/120,000) CAP PO SCH ×4 (09:16→19:15)
[2018-01-07] MEDS: DOCUSATE SODIUM 50 MG/SENNA 8.6 MG TAB PO SCH ×2 (09:16→23:11)
[2018-01-07] MEDS: ESCITALOPRAM OXALATE 10 MG TAB PO SCH (09:17)
[2018-01-07] MEDS: SODIUM CHLORIDE 0.9% FLUSH 10 ML FLUSH IV FLUSH SCH ×2 (09:19→23:08)
--- NOTE | 2018-01-07 11:39 | HHI.PR ---
Subjective Remarks in no acute distress. still has some headache with no significant improvement. has some nausea. afebrile. Objective Vitals Vital Signs Date Time Temp Pulse Resp B/P (MAP) Pulse Ox O2 Delivery O2 Flow Rate FiO2 01/07/18 07:56 97.3 56 18 124/62 (82) 94 01/07/18 04:54 18 01/07/18 03:58 97.3 51 16 145/69 (94) 95 01/07/18 03:46 01/07/18 02:00 58 18 130/63 (85) 96 Nasal Cannula 2.00 01/06/18 22:33 58 20 160/75 (103) 96 Nasal Cannula 2.00 01/06/18 20:00 18 01/06/18 19:25 57 18 172/85 (114) 96 Nasal Cannula 2.00 01/06/18 19:25 18 90 Room Air 01/06/18 18:51 60 17 100 Room Air 01/06/18 17:29 65 17 136/80 (98) 95 Room Air 01/06/18 15:45 94 01/06/18 14:44 97.8 54 16 165/82 (109) 99 I/O 01/06/18 01/06/18 01/06/18 01/07/18 01/07/18 01/07/18 07:00 15:00 23:00 07:00 15:00 23:00 Intake Total 200 ml Balance 200 ml Intake Oral 200 ml Result Diagram: 01/07/18 0747 01/07/18 0747 Imaging Last Impressions Head CT 01/06/18 1508 Signed Impressions: Service Date/Time: December 16:26 - CONCLUSION: 1. Stable evaluation of the brain. 2. No evidence of acute infarct, hemorrhage, mass or edema. Emerson Hyde MD Objective Remarks GENERAL: This is a well-nourished, well-developed patient, in no apparent distress. CARDIOVASCULAR: Regular rate and regular rhythm without murmurs, gallops, or rubs. RESPIRATORY: Clear to auscultation. Breath sounds equal bilaterally. No wheezes , rales, or rhonchi. GASTROINTESTINAL: Abdomen soft, non-tender, nondistended. Normal, active bowel sounds MUSCULOSKELETAL: Extremities without clubbing, cyanosis, or edema. NEURO: Alert & Oriented x4 to person, place, time, situation. Moves all ext x4 Medications and IVs Inpatient Medications Acetaminophen (Tylenol) 650 mg Q6H PRN PO FEVER/PAIN SCALE 1 TO 2; Start at 22:00 Acetaminophen/ Hydrocodone Bitart ([place] 5-325 Mg) 1 tab Q4H PRN PO PAIN SCALE 3 TO 5; Start 01/06/18 at 22:00 Acetaminophen/ Hydrocodone Bitart ([place] 10-325 Mg) 1 tab Q4H PRN PO PAIN SCALE 6 TO 10 Last administered on 01/07/18at 04:20; Start 01/06/18 at 22:00 Amylase/Lipase/ Protease ([place] 2476120) 1 cap TIDPC PO Last administered on 01/07/18at 09:16; Start 01/07/18 at 09:00 Aspirin (Aspirin Chew) 81 mg DAILY CHEW Last administered on 01/07/18at 09:16; Start 01/07/18 at 09:00 Atorvastatin Calcium (Lipitor) 80 mg DAILY PO Last administered on 01/07/18at 09 :16; Start 01/07/18 at 09:00 Bisacodyl (Dulcolax Supp) 10 mg DAILY PRN RECTAL SEVERE CONSITIPATION; Start at 22:00 Carbidopa/Levodopa (Sinemet 25-100 Mg) 1 tab Q8HR PO Last administered on at 07:48; Start 01/07/18 at 06:00 Dextrose (D50w (Vial) Inj) 50 ml UNSCH PRN IV PUSH HYPOGLYCEMIA-SEE COMMENTS; Start 01/06/18 at 22:45 Diphenhydramine HCl (Benadryl Inj) 25 mg Q6H PRN IV PUSH MIGRAINE; Start at 02:30 Donepezil HCl (Aricept) 10 mg HS PO ; Start 01/07/18 at 21:00 Duloxetine HCl (Cymbalta Dr) 60 mg DAILY PO Last administered on 01/07/18at 09: 15; Start 01/07/18 at 09:00 Escitalopram Oxalate (Lexapro) 10 mg DAILY PO Last administered on 01/07/18at 09 :17; Start 01/07/18 at 09:00 Glucagon (Glucagon Inj) 1 mg UNSCH PRN OTHER HYPOGLYCEMIA-SEE COMMENTS; Start 01/06/18 at 22:45 Insulin Aspart (NovoLOG SUPPLEMENTAL SCALE) 1 ACHS SLIDING SCALE SQ ; Start at 08:00 Lactulose (Lactulose Liq) 30 ml DAILY PRN PO SEVERE CONSITIPATION; Start at 22:00 Magnesium Hydroxide (Milk Of Magnesia Liq) 30 ml Q12H PRN PO Mild constipation ; Start 01/06/18 at 22:00 Miscellaneous (Pill Splitter) 1 ea UNSCH PRN OTHER SEE LABEL COMMENTS; Start at 23:00 Morphine Sulfate (Morphine Inj) 5 mg ONCE ONCE IV PUSH Last administered on at 15:53; Start 01/06/18 at 15:15; Stop 01/06/18 at 15:16; Status DC Ondansetron HCl (Zofran Inj) 4 mg Q6H PRN IVP NAUSEA OR VOMITING; Start at 22:00 Pantoprazole Sodium (Protonix) 40 mg BID PO Last administered on 01/07/18at 09: 16; Start 01/07/18 at 09:00 Patient Own Medication PT OWN MED: (Linaclotide (Linze... DAILY PO ; Start 01/07 at 09:00; Status Future Hold Prednisone (Deltasone) 7.5 mg DAILY PO Last administered on 01/07/18at 09:16; Start 01/07/18 at 09:00 Pregabalin (Lyrica) 100 mg BID PO Last administered on 01/07/18at 09:16; Start 01/07/18 at 09:00 Prochlorperazine Edisylate (Compazine Inj) 10 mg Q6H PRN IV PUSH MIGRAINE; Start 01/07/18 at 02:30 Senna/Docusate Sodium (Mili-Colace) 1 tab BID PO Last administered on at 09:16; Start 01/07/18 at 09:00 Sennosides (Senokot) 17.2 mg Q12H PRN PO Moderate constipation; Start 01/06/18 at 22:00 Sodium Chloride (NS Flush) 2 ml BID IV FLUSH Last administered on 01/07/18at 09: 19; Start 01/07/18 at 09:00 Sucralfate (Carafate) 1 gm QID PO Last administered on 01/07/18at 09:15; Start 01/07/18 at 09:00 Sumatriptan Succinate (Imitrex Inj) 6 mg ONCE ONCE SQ Last administered on at 18:49; Start 01/06/18 at 18:15; Stop 01/06/18 at 18:16; Status DC Temazepam (Restoril) 30 mg HS PRN PO INSOMNIA; Start 01/06/18 at 22:45 A/P Problem List: (1) Cephalgia ICD Code: R51 - Headache Status: Acute (2) Ataxia ICD Code: R27.0 - Ataxia, unspecified (3) Parkinson's disease ICD Code: G20 - Parkinson's disease (4) DM (diabetes mellitus) ICD Code: E11.9 - Type 2 diabetes mellitus without complications Assessment and Plan 1. Cephalgia: h/o Migraine, reports pain more severe, associated w/ blurry vision/ataxia. CT Head w/ no acute findings LP by IR in light of spinal cord stimulator, CSF results essentially negative. Continue pain control- 2. Ataxia: w/ associated headache, CT Head w/ no acute findings. Consulted Neurology for further recommendations/intervention. PT for eval/tx. 3. Parkinson's Disease: resumed home medications, PT for eval/tx. 4. DM: Sliding scale w/ Accu-Cheks. Serum BS 57, will monitor closely for hypoglycemia, hold home Glipizide for now. 5. DVT Prophylaxis: SCD/Teds Discharge Planning awaiting neurology recommendations. Problem Qualifiers (1) Cephalgia: Qualified Codes: R51 - Headache Isaac Grullon MD Jan 07, 2018 11:39
[2018-01-07] MEDS ORDERED: KETOROLAC TROMETHAMINE 30 MG/ML (IVP) VIAL IV PUSH PRN (12:15)
[2018-01-07] MEDS ORDERED: IOHEXOL 350 MG/ML 10 ML VIAL (for RAD DIAG) IVCONTRAST ONE (13:08)
--- NOTE | 2018-01-07 13:30 | RADRPT ---
EXAM DATE/TIME: 01/07/2018 13:08 [facility] COMPARISON: No previous studies available for comparison. INDICATIONS : cephalgia. IV CONTRAST: 65 cc Omnipaque 350 (iohexol) IV ; Cumulative dose for multiple exams. RADIATION DOSE: 28.69 CTDIvol (mGy) ; Combined studies MEDICAL HISTORY : Cerebrovascular disease. Dementia. Parkinsons. SURGICAL HISTORY : Carotid endarterectomy. Appendectomy.Cholecystectomy. ENCOUNTER: Initial ACUITY: 1 day PAIN SCALE: 8/10 LOCATION: cranial TECHNIQUE: Volumetric scanning was performed using a multi-row detector CT scanner. The data was post processed with a variety of visualization algorithms including full volume maximum intensity projection, multi -planar sliding thin slab reformation, curved planar reformation, and surface rendering techniques. Using automated exposure control and adjustment of the mA and/or kV according to patient size, radiat ion dose was kept as low as reasonably achievable to obtain optimal diagnostic quality images. DICO M format image data is available electronically for review and comparison. FINDINGS: There is excellent visualization of the major intracranial arteries out to the second-order branch ve ssels. There is no evidence for aneurysm, vessel truncation or stenosis, and no evidence for vascula r malformation. CONCLUSION: Negative for aneurysm. Yoshi Cloud MD FACR on January 07, 2018 at 13:27 Board Certified Radiologist. This report was verified electronically.
--- NOTE | 2018-01-07 13:38 | MB ---
cc: Fouzia Bhakta MD DATE: 01/07/2018 HISTORY OF PRESENT ILLNESS: This is a 77-year-old with history of being brought to the hospital because of unusual headache yesterday. The headache was right-sided and he does have a history of migraines that respond to Imitrex. The migraines are not as severe and yesterday he also had dizziness. He received Imitrex in the emergency room which helped, but the headache has recurred. A spinal tap was done with minimally spinal fluid abnormalities, not in favor of any infection. The CT brain showed stable evaluation, nothing acute. PAST MEDICAL HISTORY: He has a history of Parkinson's disease, monoclonal gammopathy, hypertension, diabetes and depression. 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 He was in the hospital a few weeks ago apparently for an extended period of time. NEUROLOGICAL EXAMINATION: The neurological exam showed normal mentation. His pupils were small, but reactive. He was a bit intolerant to the light stimulation and disks could not be seen, but the neck is completely supple. He gazed in all directions and visual dumont were full. Speech and language are normal. He did have fairly good strength throughout and the reflexes were 1+, diminished versus absent at the ankles. Plantar responses were flexor. ASSESSMENT AND PLAN: New pattern of headache. This is of some concern because it is different from the usual migraines and there was some dizziness and difficulty of gait yesterday. He has a spinal cord stimulator, but apparently he can have an MRI. Therefore, I will request an MRI brain. I will request a CT angio head and neck in order to evaluate him for cerebrovascular disease, vasculitic process. He has been taking Imitrex all along and I am not in favor of using a lot of Imitrex on him at this point, someone his age with a history of vascular disease. Therefore, we will prefer to use some pain medications for the time being and get the additional information discussed. A sedimentation rate is to be checked stat and these are both 50. We will also even consider a temporal artery biopsy. I discussed this with the nursing staff and I will follow the neurological course. Fouzia Bhakta MD OFC/SB , 01:21 PM , 01:37 PM
--- NOTE | 2018-01-07 13:55 | RADRPT ---
EXAM DATE/TIME: 01/07/2018 13:08 [facility] COMPARISON: No previous studies available for comparison. INDICATIONS : Cephalgia. IV CONTRAST: 65 cc Omnipaque 350 (iohexol) IV ; Cumulative dose for multiple exams. RADIATION DOSE: 28.69 CTDIvol (mGy) ; Combined studies MEDICAL HISTORY : Cerebrovascular disease. Dementia. Parkinsons. SURGICAL HISTORY : Carotid endarterectomy. Appendectomy.Cholecystectomy. ENCOUNTER: Initial ACUITY: 1 day PAIN SCALE: 8/10 LOCATION: Bilateral neck Elevated flow velocities and ICA/CCA ratios have been found to correlate with increased degrees of vessel stenosis, calculated as percentage of diameter relative to a normal segment of distal ICA/CCA. TECHNIQUE: Volumetric scanning was performed using a multirow detector CT scanner. The data was post processed with a variety of visualization algorithms including full-volume maximum intensity projection, multip lanar sliding thin-slab reformation, curved-planar reformation, and surface-rendering techniques. Us ing automated exposure control and adjustment of the mA and/or kV according to patient size, radiatio n dose was kept as low as reasonably achievable to obtain optimal diagnostic quality images. DICOM f ormat image data is available electronically for review and comparison. FINDINGS: AORTIC ARCH: There is a three-vessel origin of the great vessels from the aorta. No evidence of ostial narrowing. Calcification is present at the origin the right subclavian. RIGHT CAROTID: The common carotid artery is intact. The carotid bulb has a normal configuration without ulceration o r narrowing. Minimal calcific plaque is evident without soft plaque. LEFT CAROTID: The common carotid artery is intact. The carotid bulb has a normal configuration without ulceration or narrowing. Minimal hard plaque evident.. VERTEBRALS: Left vertebral is small and diminutive. Right vertebral dominant. CONCLUSION: Minimal atherosclerotic calcific vascular disease otherwise negative Yoshi Cloud MD FACR on January 07, 2018 at 13:52 Board Certified Radiologist. This report was verified electronically.
[2018-01-07] MEDS ORDERED: GADODIAMIDE PF 287 MG/ML 5 ML VIAL (for RAD MRI) IVCONTRAST ONE (16:16)
--- NOTE | 2018-01-07 16:43 | RADRPT ---
EXAM DATE/TIME: 01/07/2018 16:07 [facility] COMPARISON: No previous studies available for comparison. INDICATIONS : Headaches. CONTRAST: 22 cc Omniscan (gadodiamide) IV MEDICAL HISTORY : Parkinson's. GERD SURGICAL HISTORY : Carotid endarterectomy. Appendectomy. Fusion, lumbar. Left total knee sx, Right partical knee sx. ENCOUNTER: Initial ACUITY: 3 day PAIN SCORE: 7/10 LOCATION: Bilateral cranial TECHNIQUE: Multiplanar, multisequence MRI of the brain was performed both prior to and following the administrat ion of paramagnetic contrast. FINDINGS: There is no be strictured diffusion to suggest ischemic process. Minimal periventricular white matter changes are evident Ventricular size is appropriate There no extra-axial fluid collections appreciated Posterior fossa appears normal Findings with administration of gadolinium there is no abnormal contrast enhancement appreciated. Th ere is no parenchymal hemorrhage. The bibasilar artery is ectatic but normal size. CONCLUSION: Negative MRI of the brain for acute process. Orbits sinuses unremarkable There is no sinus disease to account for headaches.. Yoshi Cloud MD FACR on January 07, 2018 at 16:39 Board Certified Radiologist. This report was verified electronically.
[2018-01-07] MEDS: diphenhydrAMINE HCL 50 MG/ML VIAL IV PUSH PRN (19:04)
[2018-01-07] MEDS: PROCHLORPERAZINE INJ 10 MG/2 ML VIAL IV PUSH PRN (19:04)
[2018-01-07] MEDS ORDERED: DONEPEZIL HCL 5 MG TAB PO SCH (21:00)
[2018-01-07] MEDS: ONDANSETRON HCL 4 MG/2 ML VIAL IVP PRN (23:09)
[2018-01-08] MEDS: CARBIDOPA/LEVODOPA 25 MG/100 MG TAB PO SCH (05:10)
[2018-01-08] MEDS: diphenhydrAMINE HCL 50 MG/ML VIAL IV PUSH PRN ×2 (05:11→11:56)
[2018-01-08] MEDS: PROCHLORPERAZINE INJ 10 MG/2 ML VIAL IV PUSH PRN ×2 (05:11→11:56)
[2018-01-08] MEDS: ONDANSETRON HCL 4 MG/2 ML VIAL IVP PRN ×2 (05:12→10:12)
[2018-01-08 05:54] VITALS: BP 154/76; PULSE 62; RESP 18; TEMP 98.4; O2SAT 96
[2018-01-08 08:00] VITALS: BP 166/74; PULSE 73; RESP 18; TEMP 96.4; O2SAT 92
[2018-01-08] MEDS: INSULIN ASPART SUPPLEMENTAL SCALE SQ SCH ×2 (08:00→11:56)
--- NOTE | 2018-01-08 08:26 | HHI.PR ---
Subjective Remarks in no acute distress. headache has resolved. no other complaints. Objective Vitals Vital Signs Date Time Temp Pulse Resp B/P (MAP) Pulse Ox O2 Delivery O2 Flow Rate FiO2 01/08/18 05:54 98.4 62 18 154/76 (102) 96 01/07/18 23:48 98.2 65 18 158/86 (110) 93 01/07/18 19:57 98.2 64 18 152/82 (105) 97 01/07/18 17:35 97.8 54 20 156/72 (100) 95 01/07/18 12:31 97.4 58 18 134/84 (101) 94 I/O 01/07/18 01/07/18 01/07/18 01/08/18 01/08/18 01/08/18 07:00 15:00 23:00 07:00 15:00 23:00 Intake Total 200 ml Output Total 500 ml Balance 200 ml -500 ml Intake Oral 200 ml Output Urine Total 500 ml Result Diagram: 01/07/18 0747 01/07/18 0747 Imaging Last Impressions Neck CTA 01/07/18 0000 Signed Impressions: Service Date/Time: Sunday, January 07, 2018 13:08 - CONCLUSION: Minimal atherosclerotic calcific vascular disease otherwise negative Yoshi Cloud MD FACR Head CTA 01/07/18 0000 Signed Impressions: Service Date/Time: Sunday, January 07, 2018 13:08 - CONCLUSION: Negative for aneurysm. Yoshi Cloud MD FACR Brain MRI 01/07/18 0000 Signed Impressions: Service Date/Time: Sunday, January 07, 2018 16:07 - CONCLUSION: Negative MRI of the brain for acute process. Orbits sinuses unremarkable There is no sinus disease to account for headaches.. Yoshi Cloud MD FACR Head CT 01/06/18 1508 Signed Impressions: Service Date/Time: December 16:26 - CONCLUSION: 1. Stable evaluation of the brain. 2. No evidence of acute infarct, hemorrhage, mass or edema. Emerson Hyde MD Objective Remarks GENERAL: This is a well-nourished, well-developed patient, in no apparent distress. CARDIOVASCULAR: Regular rate and regular rhythm without murmurs, gallops, or rubs. RESPIRATORY: Clear to auscultation. Breath sounds equal bilaterally. No wheezes , rales, or rhonchi. GASTROINTESTINAL: Abdomen soft, non-tender, nondistended. Normal, active bowel sounds MUSCULOSKELETAL: Extremities without clubbing, cyanosis, or edema. NEURO: Alert & Oriented x4 to person, place, time, situation. Moves all ext x4 Medications and IVs Inpatient Medications Acetaminophen (Tylenol) 650 mg Q6H PRN PO FEVER/PAIN SCALE 1 TO 2; Start at 22:00 Acetaminophen/ Hydrocodone Bitart ([place] 5-325 Mg) 1 tab Q4H PRN PO PAIN SCALE 3 TO 5; Start 01/06/18 at 22:00 Acetaminophen/ Hydrocodone Bitart ([place] 10-325 Mg) 1 tab Q4H PRN PO PAIN SCALE 6 TO 10 Last administered on 01/07/18at 04:20; Start 01/06/18 at 22:00 Amylase/Lipase/ Protease ([place] 24-76-120) 1 cap TIDPC PO Last administered on 01/07/18at 19:15; Start 01/07/18 at 09:00 Aspirin (Aspirin Chew) 81 mg DAILY CHEW Last administered on 01/07/18at 09:16; Start 01/07/18 at 09:00 Atorvastatin Calcium (Lipitor) 80 mg DAILY PO Last administered on 01/07/18at 09 :16; Start 01/07/18 at 09:00 Bisacodyl (Dulcolax Supp) 10 mg DAILY PRN RECTAL SEVERE CONSITIPATION; Start at 22:00 Carbidopa/Levodopa (Sinemet 25-100 Mg) 1 tab Q8HR PO Last administered on at 05:10; Start 01/07/18 at 06:00 Dextrose (D50w (Vial) Inj) 50 ml UNSCH PRN IV PUSH HYPOGLYCEMIA-SEE COMMENTS; Start 01/06/18 at 22:45 Diphenhydramine HCl (Benadryl Inj) 25 mg Q6H PRN IV PUSH MIGRAINE Last administered on 01/08/18at 05:11; Start 01/07/18 at 02:30 Donepezil HCl (Aricept) 10 mg HS PO Last administered on 01/07/18at 23:13; Start 01/07/18 at 21:00 Duloxetine HCl (Cymbalta Dr) 60 mg DAILY PO Last administered on 01/07/18at 09: 15; Start 01/07/18 at 09:00 Escitalopram Oxalate (Lexapro) 10 mg DAILY PO Last administered on 01/07/18at 09 :17; Start 01/07/18 at 09:00 Glucagon (Glucagon Inj) 1 mg UNSCH PRN OTHER HYPOGLYCEMIA-SEE COMMENTS; Start 01/06/18 at 22:45 Insulin Aspart (NovoLOG SUPPLEMENTAL SCALE) 1 ACHS SLIDING SCALE SQ Last administered on 01/07/18at 19:15; Start 01/07/18 at 08:00 Ketorolac Tromethamine (Toradol Inj) 15 mg Q6HR PRN IV PUSH PAIN/ HEADACHE. Last administered on 01/07/18at 13:38; Start 01/07/18 at 12:15; Stop 01/12/18 at 12:14 Lactulose (Lactulose Liq) 30 ml DAILY PRN PO SEVERE CONSITIPATION; Start at 22:00 Magnesium Hydroxide (Milk Of Magnesia Liq) 30 ml Q12H PRN PO Mild constipation ; Start 01/06/18 at 22:00 Miscellaneous (Pill Splitter) 1 ea UNSCH PRN OTHER SEE LABEL COMMENTS; Start at 23:00 Morphine Sulfate (Morphine Inj) 5 mg ONCE ONCE IV PUSH Last administered on at 15:53; Start 01/06/18 at 15:15; Stop 01/06/18 at 15:16; Status DC Ondansetron HCl (Zofran Inj) 4 mg Q6H PRN IVP NAUSEA OR VOMITING Last administered on 01/08/18at 05:12; Start 01/06/18 at 22:00 Pantoprazole Sodium (Protonix) 40 mg BID PO Last administered on 01/07/18at 23: 12; Start 01/07/18 at 09:00 Patient Own Medication PT OWN MED: (Linaclotide (Linze... DAILY PO ; Start 01/07 at 09:00; Status Future Hold Prednisone (Deltasone) 7.5 mg DAILY PO Last administered on 01/07/18at 09:16; Start 01/07/18 at 09:00 Pregabalin (Lyrica) 100 mg BID PO Last administered on 01/07/18at 23:12; Start 01/07/18 at 09:00 Prochlorperazine Edisylate (Compazine Inj) 10 mg Q6H PRN IV PUSH MIGRAINE Last administered on 01/08/18at 05:11; Start 01/07/18 at 02:30 Senna/Docusate Sodium (Mili-Colace) 1 tab BID PO Last administered on at 23:11; Start 01/07/18 at 09:00 Sennosides (Senokot) 17.2 mg Q12H PRN PO Moderate constipation; Start 01/06/18 at 22:00 Sodium Chloride (NS Flush) 2 ml BID IV FLUSH Last administered on 01/07/18at 23: 08; Start 01/07/18 at 09:00 Sucralfate (Carafate) 1 gm QID PO Last administered on 01/07/18at 23:11; Start 01/07/18 at 09:00 Sumatriptan Succinate (Imitrex Inj) 6 mg ONCE ONCE SQ Last administered on at 18:49; Start 01/06/18 at 18:15; Stop 01/06/18 at 18:16; Status DC Temazepam (Restoril) 30 mg HS PRN PO INSOMNIA Last administered on 01/07/18at 23 :16; Start 01/06/18 at 22:45 A/P Problem List: (1) Cephalgia ICD Code: R51 - Headache Status: Acute (2) Ataxia ICD Code: R27.0 - Ataxia, unspecified (3) Parkinson's disease ICD Code: G20 - Parkinson's disease (4) DM (diabetes mellitus) ICD Code: E11.9 - Type 2 diabetes mellitus without complications Assessment and Plan 1. Cephalgia: h/o Migraine, reports pain more severe, associated w/ blurry vision/ataxia. the headache has now resolved. LP by IR in light of spinal cord stimulator, CSF results essentially negative. imaging studies including CT/MRI brain/ CTA head and neck with no acute abnormality. ESR 5- neurology consult appreciated. 2. Ataxia: w/ associated headache, CT Head w/ no acute findings. Consulted Neurology for further recommendations/intervention. PT for eval/tx; recommended [facility]. 3. Parkinson's Disease: resumed home medications, PT for eval/tx. 4. DM: Sliding scale w/ Accu-Cheks. 5. DVT Prophylaxis: SCD/Teds Discharge Planning likely dc home today. see med list. will have HHC. f/u; pcp and neurology. d/w the patient. Problem Qualifiers (1) Cephalgia: Qualified Codes: R51 - Headache Isaac Grullon MD Jan 08, 2018 08:25
[2018-01-08] MEDS ORDERED: GLIP5 PO (08:28)
--- NOTE | 2018-01-08 08:29 | HHI.FF ---
Face to Face Verification Diagnosis: (1) Cephalgia (2) History of Parkinson's disease Physical Therapy Order: Evaluate and Treat Home Health Nursing Order: Medical education Signs/symptoms of disease process Medication education-adverse effect Nursing assessment with vital signs I have seen patient Andres Cano on 01/08/18. My clinical findings support the need for the requested home health care services because: Ltd mobility - disease progression I certify that my clinical findings support that this patient is homebound because: Unsteady gait/balance Isaac Grullon MD Jan 08, 2018 08:29
[2018-01-08] MEDS ORDERED: LISINOPRIL 10 MG TAB PO SCH (09:00)
[2018-01-08] MEDS: ASPIRIN 81 MG CHEW TAB CHEW SCH (10:10)
[2018-01-08] MEDS: ESCITALOPRAM OXALATE 10 MG TAB PO SCH (10:11)
[2018-01-08] MEDS: DOCUSATE SODIUM 50 MG/SENNA 8.6 MG TAB PO SCH (10:11)
[2018-01-08] MEDS: SUCRALFATE 1 GM TAB PO SCH (10:11)
[2018-01-08] MEDS: PANTOPRAZOLE SOD 40 MG DELAYED RELEASE TAB PO SCH (10:11)
[2018-01-08] MEDS: PREGABALIN 100 MG CAP PO SCH (10:11)
[2018-01-08] MEDS: predniSONE 5 MG TAB PO SCH (10:11)
[2018-01-08] MEDS: ATORVASTATIN 80 MG TAB PO SCH (10:11)
[2018-01-08] MEDS: LIPASE/PROTEASE/AMYLASE (24,000/76,000/120,000) CAP PO SCH (10:11)
[2018-01-08] MEDS: DULoxetine HCl DR 60 MG CAP PO SCH (10:11)
[2018-01-08] MEDS: SODIUM CHLORIDE 0.9% FLUSH 10 ML FLUSH IV FLUSH SCH (10:12)
[2018-01-08] MEDS: SODIUM CHLOR 0.9% 1000 ML INJ 1,000 ML IV SCH (10:12)
--- NOTE | 2018-01-08 10:36 | HHI.PR ---
Review/Management Daily Summary 01/08 esr normal imaging all normal i will see him now and ok to d/c from neuro standpoint unless I discuss differently with RN Subjective Subjective Comments data reviewed Active Medications Current Medications Medications (Trade) Dose Ordered Sig/Nilsa Route Start Time Stop Time Status Last Admin Sodium Chloride 1,000 ml @ 100 mls/hr Q10H IV 01/06/18 21:59 01/08/18 10:12 (NS Flush) 2 ml UNSCH PRN IV FLUSH 01/06/18 22:00 (NS Flush) 2 ml BID IV FLUSH 01/07/18 09:00 01/08/18 10:12 (Zofran Inj) 4 mg Q6H PRN IVP 01/06/18 22:00 01/08/18 10:12 (Tylenol) 650 mg Q6H PRN PO 01/06/18 22:00 ([place] 5-325 Mg) 1 tab Q4H PRN PO 01/06/18 22:00 ([place] 10-325 Mg) 1 tab Q4H PRN PO 01/06/18 22:00 01/07/18 04:20 (Mili-Colace) 1 tab BID PO 01/07/18 09:00 01/08/18 10:11 (Milk Of Magnesia Liq) 30 ml Q12H PRN PO 01/06/18 22:00 (Senokot) 17.2 mg Q12H PRN PO 01/06/18 22:00 (Dulcolax Supp) 10 mg DAILY PRN RECTAL 01/06/18 22:00 (Lactulose Liq) 30 ml DAILY PRN PO 01/06/18 22:00 (D50w (Vial) Inj) 50 ml UNSCH PRN IV PUSH 01/06/18 22:45 (Glucagon Inj) 1 mg UNSCH PRN OTHER 01/06/18 22:45 (NovoLOG SUPPLEMENTAL SCALE) 1 ACHS SLIDING SCALE SQ 01/07/18 08:00 01/07/18 19:15 (Aspirin Chew) 81 mg DAILY CHEW 01/07/18 09:00 01/08/18 10:10 (Sinemet 25-100 Mg) 1 tab Q8HR PO 01/07/18 06:00 01/08/18 05:10 (Aricept) 10 mg HS PO 4/20/18 21:00 01/07/18 23:13 (Cymbalta Dr) 60 mg DAILY PO 01/07/18 09:00 01/08/18 10:11 (Lexapro) 10 mg DAILY PO 01/07/18 09:00 01/08/18 10:11 (Deltasone) 7.5 mg DAILY PO 01/07/18 09:00 01/08/18 10:11 (Lyrica) 100 mg BID PO 01/07/18 09:00 01/08/18 10:11 (Carafate) 1 gm QID PO 01/07/18 09:00 01/08/18 10:11 (Restoril) 30 mg HS PRN PO 01/06/18 22:45 01/07/18 23:16 (Protonix) 40 mg BID PO 01/07/18 09:00 01/08/18 10:11 Patient Own Medication PT OWN MED: (Linaclotide (Linze... DAILY PO 01/07/18 09:00 Future Hold ([place] 24-76-120) 1 cap TIDPC PO 01/07/18 09:00 01/08/18 10:11 (Pill Splitter) 1 ea UNSCH PRN OTHER 01/06/18 23:00 (Lipitor) 80 mg DAILY PO 01/07/18 09:00 01/08/18 10:11 (Compazine Inj) 10 mg Q6H PRN IV PUSH 01/07/18 02:30 01/08/18 05:11 (Benadryl Inj) 25 mg Q6H PRN IV PUSH 01/07/18 02:30 01/08/18 05:11 (Toradol Inj) 15 mg Q6HR PRN IV PUSH 01/07/18 12:15 01/12/18 12:14 01/07/18 13:38 (Prinivil) 10 mg DAILY PO 01/08/18 09:00 01/08/18 10:10 Allergies Allergies Coded Allergies No Known Allergies (Verified Allergy, Unknown, 11/14/17) Exam I&O / VS Vital Signs Date Time Temp Pulse Resp B/P (MAP) Pulse Ox O2 Delivery O2 Flow Rate FiO2 01/08/18 08:00 96.4 73 18 166/74 (104) 92 01/08/18 05:54 98.4 62 18 154/76 (102) 96 01/07/18 23:48 98.2 65 18 158/86 (110) 93 01/07/18 19:57 98.2 64 18 152/82 (105) 97 01/07/18 17:35 97.8 54 20 156/72 (100) 95 01/07/18 12:31 97.4 58 18 134/84 (101) 94 Objective Radiology Results Last 48 hours Impressions Neck CTA 01/07/18 0000 Signed Impressions: Service Date/Time: Sunday, January 07, 2018 13:08 - CONCLUSION: Minimal atherosclerotic calcific vascular disease otherwise negative Yoshi Cloud MD FACR Head CTA 01/07/18 0000 Signed Impressions: Service Date/Time: Sunday, January 07, 2018 13:08 - CONCLUSION: Negative for aneurysm. Yoshi Cloud MD FACR Brain MRI 01/07/18 0000 Signed Impressions: Service Date/Time: Sunday, January 07, 2018 16:07 - CONCLUSION: Negative MRI of the brain for acute process. Orbits sinuses unremarkable There is no sinus disease to account for headaches.. Yoshi Cloud MD FACR Head CT 01/06/18 1508 Signed Impressions: Service Date/Time: December 16:26 - CONCLUSION: 1. Stable evaluation of the brain. 2. No evidence of acute infarct, hemorrhage, mass or edema. Emerson Hyde MD Micro and Labs Laboratory Tests Test 01/06/18 15:52 01/06/18 18:20 01/07/18 07:47 Red Blood Count 4.47 MIL/MM3 (4.50-5.90) Red Cell Distribution Width 17.6 % (11.6-17.2) 17.9 % (11.6-17.2) Monocytes (%) (Auto) 8.6 % (0.0-8.0) Random Glucose 57 MG/DL (74-106) 134 MG/DL (74-106) Albumin 3.2 GM/DL (3.4-5.0) Calcium Level 8.4 MG/DL (8.5-10.1) 8.3 MG/DL (8.5-10.1) Aspartate Amino Transf (AST/SGOT) 51 U/L (15-37) Chloride Level 109 MEQ/L (98-107) 109 MEQ/L (98-107) Estimat Glomerular Filtration Rate 67 ML/MIN (>89) 67 ML/MIN (>89) CSF WBC (Tube 4) 11 /MM3 (0-10) CSF RBC (Tube 4) 40 /MM3 (NONE) Fouzia Bhakta MD Jan 08, 2018 10:36
[2018-01-08 12:07] VITALS: BP 158/79; PULSE 68; RESP 18; TEMP 95.9; O2SAT 95
--- NOTE | 2018-01-08 12:07 | HHI.PR ---
Review/Management Daily Summary 01/08 esr normal imaging all normal i will see him now and ok to d/c from neuro standpoint unless I discuss differently with RN discussed with staff, ok to d/c Subjective Subjective Comments No acute events reported No headache Active Medications Current Medications Medications (Trade) Dose Ordered Sig/Nilsa Route Start Time Stop Time Status Last Admin Sodium Chloride 1,000 ml @ 100 mls/hr Q10H IV 01/06/18 21:59 01/08/18 10:12 (NS Flush) 2 ml UNSCH PRN IV FLUSH 01/06/18 22:00 (NS Flush) 2 ml BID IV FLUSH 01/07/18 09:00 01/08/18 10:12 (Zofran Inj) 4 mg Q6H PRN IVP 01/06/18 22:00 01/08/18 10:12 (Tylenol) 650 mg Q6H PRN PO 01/06/18 22:00 ([place] 5-325 Mg) 1 tab Q4H PRN PO 01/06/18 22:00 ([place] 10-325 Mg) 1 tab Q4H PRN PO 01/06/18 22:00 01/07/18 04:20 (Mili-Colace) 1 tab BID PO 01/07/18 09:00 01/08/18 10:11 (Milk Of Magnesia Liq) 30 ml Q12H PRN PO 01/06/18 22:00 (Senokot) 17.2 mg Q12H PRN PO 01/06/18 22:00 (Dulcolax Supp) 10 mg DAILY PRN RECTAL 01/06/18 22:00 (Lactulose Liq) 30 ml DAILY PRN PO 01/06/18 22:00 (D50w (Vial) Inj) 50 ml UNSCH PRN IV PUSH 01/06/18 22:45 (Glucagon Inj) 1 mg UNSCH PRN OTHER 01/06/18 22:45 (NovoLOG SUPPLEMENTAL SCALE) 1 ACHS SLIDING SCALE SQ 01/07/18 08:00 01/07/18 19:15 (Aspirin Chew) 81 mg DAILY CHEW 01/07/18 09:00 01/08/18 10:10 (Sinemet 25-100 Mg) 1 tab Q8HR PO 01/07/18 06:00 01/08/18 05:10 (Aricept) 10 mg HS PO 01/07/18 21:00 01/07/18 23:13 (Cymbalta Dr) 60 mg DAILY PO 01/07/18 09:00 01/08/18 10:11 (Lexapro) 10 mg DAILY PO 01/07/18 09:00 01/08/18 10:11 (Deltasone) 7.5 mg DAILY PO 01/07/18 09:00 01/08/18 10:11 (Lyrica) 100 mg BID PO 01/07/18 09:00 01/08/18 10:11 (Carafate) 1 gm QID PO 01/07/18 09:00 01/08/18 10:11 (Restoril) 30 mg HS PRN PO 01/06/18 22:45 01/07/18 23:16 (Protonix) 40 mg BID PO 01/07/18 09:00 01/08/18 10:11 Patient Own Medication PT OWN MED: (Linaclotide (Linze... DAILY PO 01/07/18 09:00 Future Hold ([place] 24-76-120) 1 cap TIDPC PO 01/07/18 09:00 01/08/18 10:11 (Pill Splitter) 1 ea UNSCH PRN OTHER 01/06/18 23:00 (Lipitor) 80 mg DAILY PO 01/07/18 09:00 01/08/18 10:11 (Compazine Inj) 10 mg Q6H PRN IV PUSH 01/07/18 02:30 01/08/18 11:56 (Benadryl Inj) 25 mg Q6H PRN IV PUSH 01/07/18 02:30 01/08/18 11:56 (Toradol Inj) 15 mg Q6HR PRN IV PUSH 01/07/18 12:15 01/12/18 12:14 01/07/18 13:38 (Prinivil) 10 mg DAILY PO 01/08/18 09:00 01/08/18 10:10 Allergies Allergies Coded Allergies No Known Allergies (Verified Allergy, Unknown, 11/14/17) Exam I&O / VS 01/08/18 01/08/18 01/09/18 15:00 23:00 07:00 # Voids 2 Vital Signs Date Time Temp Pulse Resp B/P (MAP) Pulse Ox O2 Delivery O2 Flow Rate FiO2 4/21/18 08:00 96.4 73 18 166/74 (104) 92 01/08/18 05:54 98.4 62 18 154/76 (102) 96 01/07/18 23:48 98.2 65 18 158/86 (110) 93 01/07/18 19:57 98.2 64 18 152/82 (105) 97 01/07/18 17:35 97.8 54 20 156/72 (100) 95 01/07/18 12:31 97.4 58 18 134/84 (101) 94 Objective Radiology Results Last 48 hours Impressions Neck CTA 01/07/18 0000 Signed Impressions: Service Date/Time: Sunday, January 07, 2018 13:08 - CONCLUSION: Minimal atherosclerotic calcific vascular disease otherwise negative Yoshi Cloud MD FACR Head CTA 01/07/18 0000 Signed Impressions: Service Date/Time: Sunday, January 07, 2018 13:08 - CONCLUSION: Negative for aneurysm. Yoshi Cloud MD FACR Brain MRI 01/07/18 0000 Signed Impressions: Service Date/Time: Sunday, January 07, 2018 16:07 - CONCLUSION: Negative MRI of the brain for acute process. Orbits sinuses unremarkable There is no sinus disease to account for headaches.. Yoshi Cloud MD FACR Head CT 01/06/18 1508 Signed Impressions: Service Date/Time: December 16:26 - CONCLUSION: 1. Stable evaluation of the brain. 2. No evidence of acute infarct, hemorrhage, mass or edema. MD Quyen Beyha,Fouzia Adamson MD Jan 08, 2018 12:07
--- NOTE | 2018-01-08 12:53 | RADRPT ---
EXAM DATE/TIME: 01/06/2018 18:23 [facility] COMPARISON: No previous studies available for comparison. INDICATIONS : Patient complains of severe headaches MEDICAL HISTORY : Parkinson's disease, monoclonal gammopathy, diabetes, hypertension, SURGICAL HISTORY : Gallbladder, appendectomy, spinal cored implant, carotid endarectomy, cataracts, knee replacements (b ilateral). ENCOUNTER: Initial ACUITY: 1 day PAIN SCORE: 8/10 LOCATION: Head LUMBAR PUNCTURE TIME: 1820 FLUORO TIME: 0.9 minutes IMAGE SERIES: 1 ACCESS LEVEL: L3-4 FLUID: 18 cc of clear CSF was collected and sent to the laboratory for analysis. PROCEDURE : 1. Fluoroscopic guided lumbar puncture. The risks, benefits and alternatives to the procedure were explained and verbal and written consent w as obtained. The site was prepped in sterile fashion. Full sterile technique was used, including ca p, mask, sterile gloves and gown and a large sterile sheet. Hand hygiene and 2% chlorhexidine and/or betadine/alcohol prep was utilized per protocol for cutaneous antisepsis. The skin and subcutaneous tissues were infiltrated with local anesthetic solution. With fluoroscopic guidance the lumbar thecal sac was punctured at the level above. The fluid describ ed above was removed without difficulty. The patient tolerated the procedure well and there were no complications. CONCLUSION: Uncomplicated fluoroscopically guided lumbar puncture. Percy Ferraro MD on January 08, 2018 at 12:50 Board Certified Radiologist. This report was verified electronically.
== END 2018-01-08 13:32 | disposition home or self-care (01) ==
LOC: NEPE 14:40 → NEDA 21:56 → NEDH 01-07 02:49 → NEPFCDU 01-07 03:14
PROVIDERS: ADMIT Internal Medicine; ATTEND Internal Medicine
DX: R51 Headache (principal); R27.0 Ataxia, unspecified; G20 Parkinson's disease; E11.9 Type 2 diabetes mellitus without complications; I25.10 Atherosclerotic heart disease of native coronary artery without angina pectoris; I10 Essential (primary) hypertension; H53.8 Other visual disturbances; G43.909 Migraine, unspecified, not intractable, without status migrainosus; R11.0 Nausea; M54.2 Cervicalgia; R42 Dizziness and giddiness; F03.90 Unspecified dementia, unspecified severity, without behavioral disturbance, psychotic disturbance, mood disturbance, and anxiety; K21.9 Gastro-esophageal reflux disease without esophagitis; F32.9 Major depressive disorder, single episode, unspecified; M19.90 Unspecified osteoarthritis, unspecified site; Z79.899 Other long term (current) drug therapy; Z79.82 Long term (current) use of aspirin; Z86.73 Personal history of transient ischemic attack (TIA), and cerebral infarction without residual deficits
CPT/HCPCS: 62270; 70450; 70496; 70498; 70553; 77003; 80053; 82948; 85025; 85610; 85652; 85730; 89051; 96361; 96372; 96374; 96375; 96376; 97162; 99285; A9579; G0378; G8987; G8988; J0780; J1200; J1815; J1885; J2270; J2405; J3030; J7030; J7512; Q9967

== ENCOUNTER 2018-06-19 11:59 | Observation (INO) ==
[2018-06-19] MEDS ORDERED: Vancomycin Inj 1,500 MG in Sodium Chlor 0.9% Inj 500 ML IV.SIG ONE (12:55)
[2018-06-19] MEDS ORDERED: MethylPREDNISolone Sod Succinate Inj 125 MG/2 ML Vial IV.PUSH ONE (12:57)
--- NOTE | 2018-06-19 13:18 | XR ---
EXAM DATE: 06/19/2018 12:54 PM EDT AGE/SEX: 78 years / Male INDICATIONS: Dyspnea, short of breath, chest pain CLINICAL DATA: This is the patient's initial encounter. Patient reports that signs and symptoms have been present for 4 - 6 days and indicates a pain score of 8/10. MEDICAL/SURGICAL HISTORY: . : Cardiovascular disease. Diabetes mellitus type 2. Renal calculi. GERD . Carotid endarterectomy. Appendectomy. Kyphoplasty. Lumbar fusion COMPARISON: POI, XR CHEST PA AND LAT, 01/28/2018. . FINDINGS: There is mild cardiomegaly. The lungs are clear. The bony structures demonstrate mild degenerative ch anges in the right AC joint but are otherwise intact. Study is similar compared to previous. CONCLUSION: No acute cardiopulmonary findings. Electronically signed by: Maury Cloud MD 06/19/2018 1:16 PM EDT
[2018-06-19 13:54] LABS: Baso % (Auto) 0.4 % (0.0-2.0); Eos # (Auto) 0.2 th/mm3 (0.0-0.4); Eos % (Auto) 1.6 % (0.0-4.0); Hematocrit 39.9 % (39.0-51.0); Hemoglobin 13.1 gm/dL (13.0-17.0); Lymph # (Auto) 1.3 th/mm3 (1.0-4.8); Lymph % (Auto) 12.8 % (9.0-44.0); Mean Corpuscular Hemoglobin 30.2 pg (27.0-34.0); Mean Corpuscular Volume 91.6 fL (80.0-100.0); Mean Platelet Volume 8.8 fL (7.0-11.0); Mono % (Auto) 9.1 % (0.0-8.0); Neut % (Auto) 76.1 % (16.0-70.0); Platelet Count 135 th/mm3 (150-450); Red Blood Count 4.35 mil/mm3 (4.50-5.90); Red Cell Distribution Width 18.5 % (11.6-17.2); White Blood Count 10.6 th/mm3 (4.0-11.0)
[2018-06-19 14:16] LABS: Alanine Aminotransferase 12 U/L (12-78); Albumin 3.4 g/dL (3.4-5.0); Anion Gap 8 meq/L (5-15); Aspartate Aminotransferase 10 U/L (15-37); Blood Urea Nitrogen 15 mg/dL (7-18); Calcium 8.1 mg/dL (8.5-10.1); Carbon Dioxide 25.3 meq/L (21.0-32.0); Chloride 111 meq/L (98-107); Glomerular Filtration Rate 72 mL/min (>89); Glucose,Random 53 mg/dL (74-106); Potassium 4.1 meq/L (3.5-5.1); Sodium 144 meq/L (136-145)
[2018-06-19 14:19] LABS: Alkaline Phosphatase 105 U/L (45-117); Total Protein 6.4 g/dL (6.4-8.2)
--- NOTE | 2018-06-19 16:28 | CT ---
EXAM DATE: 06/19/2018 2:37 PM EDT AGE/SEX: 78 years / Male INDICATIONS: Shortness of breath for four days. CLINICAL DATA: This is the patient's initial encounter. Patient reports that signs and symptoms have been present for 1 day and indicates a pain score of 0/10. MEDICAL/SURGICAL HISTORY: Dementia. Parkinson's disease. . spinal cord stimulator RADIATION DOSE: 10.74 CTDI (mGy) COMPARISON: COMP, CTA PULMONARY ANGIOGRAM, 12/03/2017. . TECHNIQUE: Volumetric scanning was performed using a multi-row detector CT scanner during bolus infu allie of 75 ml Omnipaque 350 (iohexol) nonionic water-soluble contrast as a single exam dose. The graciela a was post processed with a variety of visualization algorithms including full volume maximum intensi ty projection and sliding thin slab reformation. Using automated exposure control and adjustment of the mA and/or kV according to patient size, radiation dose was kept as low as reasonably achievable t o obtain optimal diagnostic quality images. DICOM format image data is available electronically for review and comparison. FINDINGS: The examination is of good diagnostic quality. No pulmonary embolus is identified. The heart is mildly enlarged. There is atherosclerotic plaquing in the coronary arteries. No signific ant hilar or mediastinal adenopathy is identified. No significant axillary adenopathy is identified. Imaging through the pulmonary parenchyma demonstrates COPD changes with atelectatic changes in the jose alfredo ng bases. This has significantly improved compared to a previous dated 12/03/2017. The osseous structures of the spine demonstrate degenerative changes but are otherwise intact. The limited portions of upper abdomen visualized are unremarkable. CONCLUSION: 1. No pulmonary embolus identified. 2. Improving atelectasis in the lung bases. Electronically signed by: Maury Cloud MD 06/19/2018 4:26 PM EDT
--- NOTE | 2018-06-19 16:50 | ED ---
HPI General Chief Complaint: Respiratory Symptoms Stated Complaint: Resp Time Seen by Provider: 06/19/18 12:22 Source: patient and family Mode of arrival: ambulatory Limitations: no limitations History of Present Illness HPI Narrative: Patient 78 years old and arrives chest heaviness and dyspnea. He reports a prior episode of pneumonia started the same way and he is concerned he might have pneumonia again. At episode required a hospital admission which lasted 7 weeks and was complicated by an Acinetobacter infection. The patient reports dyspnea on exertion. He reports a flight from [place] to [place] within the last week and prior to the flight patient had rhinorrhea with nasal congestion thought he might have had a URI. Patient reports using nebulizers at home which conferred minimal if any benefit. He reports having had to use nebulizer since the pneumonia episode. No vomiting. Patient describes heaviness to be primarily in the epigastrium. He also describes a pleuritic chest pain. 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 MD Complaint: cough Onset (ago): day(s) Duration: constant Severity: mild Relieving factors: nothing Exacerbating factors: exertion Description of mucous: clear Able to tolerate fluids by mouth: Yes Context: recent travel Related Data Home Medications Medication Instructions Recorded Confirmed Lexapro 10 mg PO DAILY 06/19/18 06/19/18 aspirin 81 mg PO DAILY 06/19/18 06/19/18 carbidopa-levodopa [Sinemet] 1 tab PO TID 06/19/18 06/19/18 celecoxib [Celebrex] 200 mg PO BID 06/19/18 06/19/18 diclofenac sodium 1 applicatio TOPICAL QID 06/19/18 06/19/18 donepezil [Aricept] 10 mg PO QPM 06/19/18 06/19/18 duloxetine [Cymbalta] 60 mg PO BID 06/19/18 06/19/18 escitalopram oxalate [Lexapro] 10 mg PO DAILY 06/19/18 06/19/18 esomeprazole magnesium [Nexium] 40 mg PO BID 06/19/18 06/19/18 glipizide 5 mg PO BID 06/19/18 06/19/18 linaclotide [Linzess] 145 mcg PO DAILY 06/19/18 06/19/18 qrnget-[id number]-[id number] [Zenpep] 1 cap PO 5 TIMES A DAY 06/19/18 06/19/18 lisinopril 10 mg PO DAILY 06/19/18 06/19/18 multivitamin 1 tab PO QAM 06/19/18 06/19/18 prednisone 7.5 mg PO DAILY 06/19/18 06/19/18 pregabalin [Lyrica] 100 mg PO BID 06/19/18 06/19/18 rosuvastatin [Crestor] 40 mg PO QPM 06/19/18 06/19/18 sildenafil [Viagra] 100 mg PO DAILY PRN 06/19/18 06/19/18 sucralfate [Carafate] 1 g PO Q6H 06/19/18 06/19/18 sumatriptan succinate 100 mg PO Q2-4H PRN 06/19/18 06/19/18 temazepam [Restoril] 30 mg PO HS 06/19/18 06/19/18 Allergies Allergy/AdvReac Type Severity Reaction Status Date / Time sulfamethoxazole Allergy Mild Hives Verified 06/19/18 12:12 [From Bactrim] trimethoprim [From Bactrim] Allergy Mild Hives Verified 06/19/18 12:12 Review of Systems ROS: all other systems reviewed are negative [facility] Family History Family History Father Emphysema lung Social History Social History Substance History: No History of Abuse Second Hand Smoke Exposure: Yes Smoking Status: Never smoker How Often Do You Have a Drink Containing Alcohol: Never Recent Travel in [place] within the Last 8 Weeks: No Recent Out of Country Travel within the Last 8 Weeks: No Immunization History Tetanus Immunization: Unsure Exam Narrative Exam Narrative: GENERAL: 78-year-old male mild to moderate distress secondary to dyspnea, speaking short sentences SKIN: Focused skin assessment warm/dry. HEAD: Atraumatic. Normocephalic. EYES: Pupils equal and round. No scleral icterus. No injection or drainage. ENT: No nasal bleeding or discharge. Mucous membranes pink and moist. NECK: Trachea midline. No JVD. CARDIOVASCULAR: Regular rate and rhythm. No murmur appreciated. RESPIRATORY: Wheezing is present bilaterally. The respiratory rate is about 24. GASTROINTESTINAL: Abdomen soft, non-tender, nondistended. Hepatic and splenic margins not palpable. MUSCULOSKELETAL: No obvious deformities. No clubbing. No cyanosis. No evidence of DVT on either side. NEUROLOGICAL: Awake and alert. No obvious cranial nerve deficits. Motor grossly within normal limits. Normal speech. PSYCHIATRIC: Appropriate mood and affect; insight and judgment normal. Course Initial Documented Vital Signs Temperature 97.1 F L 06/19/18 12:02 Pulse Rate 85 06/19/18 12:02 Blood Pressure 113/56 L 06/19/18 12:02 Pulse Oximetry 96 06/19/18 12:02 Last Documented Vital Signs Temperature 97.8 F 06/20/18 15:29 Pulse Rate 76 06/20/18 15:29 Respiratory Rate 16 06/20/18 15:29 Blood Pressure 130/67 06/20/18 15:29 Pulse Oximetry 97 06/20/18 15:29 Critical Care Time Critical Care Time: Yes Total Critical Care Time: 45 Attestation: Aggregate critical care time was 45 minutes. Time to perform other separately billable procedures was not included in the critical care time. My time did not include minutes spent treating any other patients simultaneously or on activities that did not directly contribute to the patient's treatment. The services I provided to this patient were to treat and/or prevent clinically significant deterioration that could result in: Sepsis, septic shock, multiorgan injury I provided critical care services requiring my management, as noted below: Chart data review, documentation time, medication orders and management, vital sign assessments/reviewing monitor data, ordering and reviewing lab tests, ordering and interpreting/reviewing x-rays and diagnostic studies, care of the patient and discussion of the patient with the admitting physicians. Medical Decision Making MDM Narrative Medical decision making narrative: Patient received 3 rounds of DuoNeb here and reports no significant improvement. Chest x-ray clear along with essentially unremarkable blood work raises concern for PE. CT pulmonary angiogram reveals no PE however we DC emphysema. Additional breathing treatments did not help patient. Given the presence of chest heaviness with shortness of breath admission for serial enzymes and as needed albuterol treatments. Discussed with Dr. Omalley. Medical Screen Exam Complete: Yes Emergency Medical Condition: Yes Differential Diagnosis Differential Diagnosis: Pneumonia, PE, ACS, COPD Medical Records Medical records reviewed: Yes I reviewed the patient's medical records. Lab Data Lab results reviewed: Yes I reviewed the patient's lab results. Lab results narrative: Troponin is less than 0.02 BNP is less than 50 Result diagrams: 06/20/18 06:31 06/20/18 06:31 Lab Results 09/30/18 09/30/18 09/30/18 Range/Units 13:45 13:45 13:45 WBC 10.6 (4.0-11.0) th/mm3 RBC 4.35 L (4.50-5.90) mil/mm3 Hgb 13.1 (13.0-17.0) gm/dL Hct 39.9 (39.0-51.0) % MCV 91.6 (80.0-100.0) fL MCH 30.2 (27.0-34.0) pg MCHC 33.0 (32.0-36.0) % RDW 18.5 H (11.6-17.2) % Plt Count 135 L (150-450) th/mm3 MPV 8.8 (7.0-11.0) fL Neut % (Auto) 76.1 H (16.0-70.0) % Lymph % (Auto) 12.8 (9.0-44.0) % [place] % (Auto) 9.1 H (0.0-8.0) % Eos % (Auto) 1.6 (0.0-4.0) % Baso % (Auto) 0.4 (0.0-2.0) % Neut # (Auto) 8.0 H (1.8-7.7) th/mm3 Lymph # (Auto) 1.3 (1.0-4.8) th/mm3 [place] # (Auto) 1.0 H (0.0-0.9) th/mm3 Eos # (Auto) 0.2 (0.0-0.4) th/mm3 Baso # (Auto) 0.0 (0.0-0.2) th/mm3 WBC Differential . Differential Comment Auto diff final Sodium 144 (136-145) meq/L Potassium 4.1 (3.5-5.1) meq/L Chloride 111 H (98-107) meq/L Carbon Dioxide 25.3 (21.0-32.0) meq/L Anion Gap 8 (5-15) meq/L BUN 15 (7-18) mg/dL Creatinine 1.01 (0.60-1.30) mg/dL Estimated GFR 72 L (>89) mL/min POC Glucose (68-110) mg/dl Random Glucose 53 L (74-106) mg/dL Calcium 8.1 L (8.5-10.1) mg/dL Total Bilirubin 0.3 (0.2-1.0) mg/dL AST 10 L (15-37) U/L ALT 12 (12-78) U/L Alkaline Phosphatase 105 (45-117) U/L Troponin I Less than 0.02 L (0.02-0.05) ng/mL B-Natriuretic Peptide (0-100) pg/mL Total Protein 6.4 (6.4-8.2) g/dL Albumin 3.4 (3.4-5.0) g/dL Urine Color (Yellw/Straw) Urine Clarity (Clear) Urine pH (5.0-8.5) Ur Specific [place] (1.002-1.035) Urine Protein (Neg-Trace) mg/dL Urine Glucose (UA) (Negative) mg/dL Urine Ketones (Negative) mg/dL Urine Occult Blood (Negative) Urine Nitrate (Negative) Urine Bilirubin (Negative) Urine Urobilinogen (Less than 2) mg/dL Ur Leukocyte Esterase (Negative) Urine RBC (0-3) /hpf Urine WBC (0-5) /hpf Urine Mucus (Occasional) /lpf Micro UA Comment Ur Microscopic Review Urine Culture Comments 06/19/18 06/19/18 06/19/18 Range/Units 13:45 19:59 23:34 WBC (4.0-11.0) th/mm3 RBC (4.50-5.90) mil/mm3 Hgb (13.0-17.0) gm/dL Hct (39.0-51.0) % MCV (80.0-100.0) fL MCH (27.0-34.0) pg MCHC (32.0-36.0) % RDW (11.6-17.2) % Plt Count (150-450) th/mm3 MPV (7.0-11.0) fL Neut % (Auto) (16.0-70.0) % Lymph % (Auto) (9.0-44.0) % [place] % (Auto) (0.0-8.0) % Eos % (Auto) (0.0-4.0) % Baso % (Auto) (0.0-2.0) % Neut # (Auto) (1.8-7.7) th/mm3 Lymph # (Auto) (1.0-4.8) th/mm3 [place] # (Auto) (0.0-0.9) th/mm3 Eos # (Auto) (0.0-0.4) th/mm3 Baso # (Auto) (0.0-0.2) th/mm3 WBC Differential Differential Comment Sodium (136-145) meq/L Potassium (3.5-5.1) meq/L Chloride (98-107) meq/L Carbon Dioxide (21.0-32.0) meq/L Anion Gap (5-15) meq/L BUN (7-18) mg/dL Creatinine (0.60-1.30) mg/dL Estimated GFR (>89) mL/min POC Glucose 266 H 315 H (68-110) mg/dl Random Glucose (74-106) mg/dL Calcium (8.5-10.1) mg/dL Total Bilirubin (0.2-1.0) mg/dL AST (15-37) U/L ALT (12-78) U/L Alkaline Phosphatase (45-117) U/L Troponin I (0.02-0.05) ng/mL B-Natriuretic Peptide 28 (0-100) pg/mL Total Protein (6.4-8.2) g/dL Albumin (3.4-5.0) g/dL Urine Color (Yellw/Straw) Urine Clarity (Clear) Urine pH (5.0-8.5) Ur Specific [place] (1.002-1.035) Urine Protein (Neg-Trace) mg/dL Urine Glucose (UA) (Negative) mg/dL Urine Ketones (Negative) mg/dL Urine Occult Blood (Negative) Urine Nitrate (Negative) Urine Bilirubin (Negative) Urine Urobilinogen (Less than 2) mg/dL Ur Leukocyte Esterase (Negative) Urine RBC (0-3) /hpf Urine WBC (0-5) /hpf Urine Mucus (Occasional) /lpf Micro UA Comment Ur Microscopic Review Urine Culture Comments 06/19/18 06/20/18 06/20/18 Range/Units 23:50 06:31 06:31 WBC 8.2 (4.0-11.0) th/mm3 RBC 4.31 L (4.50-5.90) mil/mm3 Hgb 13.1 (13.0-17.0) gm/dL Hct 39.0 (39.0-51.0) % MCV 90.6 (80.0-100.0) fL MCH 30.5 (27.0-34.0) pg MCHC 33.6 (32.0-36.0) % RDW 18.1 H (11.6-17.2) % Plt Count 127 L (150-450) th/mm3 MPV 8.8 (7.0-11.0) fL Neut % (Auto) 90.1 H (16.0-70.0) % Lymph % (Auto) 6.9 L (9.0-44.0) % [place] % (Auto) 2.9 (0.0-8.0) % Eos % (Auto) 0.0 (0.0-4.0) % Baso % (Auto) 0.1 (0.0-2.0) % Neut # (Auto) 7.4 (1.8-7.7) th/mm3 Lymph # (Auto) 0.6 L (1.0-4.8) th/mm3 [place] # (Auto) 0.2 (0.0-0.9) th/mm3 Eos # (Auto) 0.0 (0.0-0.4) th/mm3 Baso # (Auto) 0.0 (0.0-0.2) th/mm3 WBC Differential . Differential Comment Auto diff final Sodium 140 (136-145) meq/L Potassium 4.1 (3.5-5.1) meq/L Chloride 109 H (98-107) meq/L Carbon Dioxide 20.5 L (21.0-32.0) meq/L Anion Gap 11 (5-15) meq/L BUN 16 (7-18) mg/dL Creatinine 0.97 (0.60-1.30) mg/dL Estimated GFR 75 L (>89) mL/min POC Glucose (68-110) mg/dl Random Glucose 214 H D (74-106) mg/dL Calcium 8.9 D (8.5-10.1) mg/dL Total Bilirubin 0.4 (0.2-1.0) mg/dL AST 9 L (15-37) U/L ALT 10 L (12-78) U/L Alkaline Phosphatase 102 (45-117) U/L Troponin I (0.02-0.05) ng/mL B-Natriuretic Peptide (0-100) pg/mL Total Protein 6.6 (6.4-8.2) g/dL Albumin 3.2 L (3.4-5.0) g/dL Urine Color Yellow (Yellw/Straw) Urine Clarity Clear (Clear) Urine pH 5.0 (5.0-8.5) Ur Specific [place] 1.036 H (1.002-1.035) Urine Protein Negative (Neg-Trace) mg/dL Urine Glucose (UA) 500 or greater (Negative) mg/dL Urine Ketones Trace H (Negative) mg/dL Urine Occult Blood Negative (Negative) Urine Nitrate Negative (Negative) Urine Bilirubin Negative (Negative) Urine Urobilinogen Less than 2 (Less than 2) mg/dL Ur Leukocyte Esterase Negative (Negative) Urine RBC 1 (0-3) /hpf Urine WBC 1 (0-5) /hpf Urine Mucus Few H (Occasional) /lpf Micro UA Comment Culture not ind Ur Microscopic Review Not Reportable Urine Culture Comments Culture not ind 06/20/18 06/20/18 06/20/18 Range/Units 09:11 12:16 17:51 WBC (4.0-11.0) th/mm3 RBC (4.50-5.90) mil/mm3 Hgb (13.0-17.0) gm/dL Hct (39.0-51.0) % MCV (80.0-100.0) fL MCH (27.0-34.0) pg MCHC (32.0-36.0) % RDW (11.6-17.2) % Plt Count (150-450) th/mm3 MPV (7.0-11.0) fL Neut % (Auto) (16.0-70.0) % Lymph % (Auto) (9.0-44.0) % [place] % (Auto) (0.0-8.0) % Eos % (Auto) (0.0-4.0) % Baso % (Auto) (0.0-2.0) % Neut # (Auto) (1.8-7.7) th/mm3 Lymph # (Auto) (1.0-4.8) th/mm3 [place] # (Auto) (0.0-0.9) th/mm3 Eos # (Auto) (0.0-0.4) th/mm3 Baso # (Auto) (0.0-0.2) th/mm3 WBC Differential Differential Comment Sodium (136-145) meq/L Potassium (3.5-5.1) meq/L Chloride (98-107) meq/L Carbon Dioxide (21.0-32.0) meq/L Anion Gap (5-15) meq/L BUN (7-18) mg/dL Creatinine (0.60-1.30) mg/dL Estimated GFR (>89) mL/min POC Glucose 233 H 282 H 216 H (68-110) mg/dl Random Glucose (74-106) mg/dL Calcium (8.5-10.1) mg/dL Total Bilirubin (0.2-1.0) mg/dL AST (15-37) U/L ALT (12-78) U/L Alkaline Phosphatase (45-117) U/L Troponin I (0.02-0.05) ng/mL B-Natriuretic Peptide (0-100) pg/mL Total Protein (6.4-8.2) g/dL Albumin (3.4-5.0) g/dL Urine Color (Yellw/Straw) Urine Clarity (Clear) Urine pH (5.0-8.5) Ur Specific [place] (1.002-1.035) Urine Protein (Neg-Trace) mg/dL Urine Glucose (UA) (Negative) mg/dL Urine Ketones (Negative) mg/dL Urine Occult Blood (Negative) Urine Nitrate (Negative) Urine Bilirubin (Negative) Urine Urobilinogen (Less than 2) mg/dL Ur Leukocyte Esterase (Negative) Urine RBC (0-3) /hpf Urine WBC (0-5) /hpf Urine Mucus (Occasional) /lpf Micro UA Comment Ur Microscopic Review Urine Culture Comments Imaging Data Radiologist's impression: Chest X-Ray 06/19/18 12:54 CONCLUSION: No acute cardiopulmonary findings. Chest CTA 06/19/18 14:24 CONCLUSION: 1. No pulmonary embolus identified. 2. Improving atelectasis in the lung bases. ECG Data Attestation: I personally reviewed and interpreted this ECG as follows: (Sinus rhythm, rate 76, first-degree AV block, recurrent supraventricular PVCs, bigeminy pattern also observed) Discharge Plan Discharge Disposition Patient Disposition: 30 Still Patient Physicians Team ED Provider: Maury Gomez Primary Care Provider: UNKNOWN, Attending Provider: Corby Abdalla Other Providers: [facility],Insurance Discharge Interventions Interventions: ED Discharge Assessment Last Done: 06/19/18 20:28 Status ED Status: Left Department Discharge Information Discharge Date/Time: 06/19/18 20:50
[2018-06-19] MEDS ORDERED: Bisacodyl 10 MG Supp RECTAL PRN (17:06)
[2018-06-19] MEDS ORDERED: Dextrose 50% in Water 50 ML Vial IV.PUSH PRN (17:27)
--- NOTE | 2018-06-19 17:51 | P.HPIM ---
History of Present Illness Service: [facility] Primary Care Physician: UNKNOWN Chief Complaint: SOB, cough History of Present Illness: Patient is 78-year-old male with past medical history of Parkinson's disease, spinal cord stimulator, HTN, HLD, COPD who initially came into the hospital for complaints of worsening shortness of breath times 4 days. Patient states that about 4 days ago he starts to cough, increased shortness of breath daily. Reports orthopnea, sputum production, brown colored. Denies any fevers, chills. States that he has pneumonia about 3 months ago, per review of records patient has MDR Acinetobacter treated with Unasyn, tobramycin nebs. is also stating that he just came back from a trip in [place]. Unable to do ADLs due to SOB, has used nebulizer treatment at home about 3 times a day without any relief. Otherwise, denies pain and discomfort. Denies chest pain, palpitations, headaches. Denies fevers, chills, n/v/d. Denies dysuria. Chest x-ray showed no acute cardiopulmonary findings. CTA results showed no pulmonary embolus identified. Improving atelectasis in the lung base. No leukocytosis, vital signs 97.1, 85, 113/56, 96% to 99% on 2 L nasal cannula - Diagnosis (1) COPD exacerbation Review of Systems All other systems reviewed negative except as stated in HPI PMFSH - History History Provided By: Patient, Family Member - Medical History Medical History: Medical History (Last Updated 06/19/18 @ 17:34 by MIL Garrido) Abscess of gallbladder Cellulitis Chronic left shoulder pain Dementia Diabetes HLD (hyperlipidemia) HTN (hypertension) Headache Monoclonal gammopathy Parkinson disease Spinal cord stimulator status Stroke - Surgical History Surgical History: Surgical History (Last Updated 06/19/18 @ 17:34 by MIL Garrido) History of bilateral knee replacement Hx of cholecystectomy Total knee replacement status - Family History Family History: Family History (Last Updated 06/19/18 @ 17:35 by MIL Garrdio) Father Emphysema lung - Social History I have reviewed the patient's Social History: Yes - Tobacco History Second Hand Smoke Exposure: Yes Smoking Status: Never smoker - Alcohol History How Often Do You Have a Drink Containing Alcohol: Never - Travel History Recent Travel in the [place] Within the Last 8 Weeks: No Recent Travel Out of the Country Within the Last 8 Weeks: No - Immunization History Tetanus Immunization: Unsure Medications and Allergies Active Medications: Active Medications Albuterol (Albuterol Neb (Prn)) 1.25 mg NEB Q6HR NEB PRN PRN Reason: SOB/ Wheezing Albuterol (Duoneb Neb (Nilsa)) 1 ampul NEB Q4HR NEB NILSA Cefepime HCl 1,000 mg/ Sodium (Chloride) 100 mls @ 200 mls/hr IV.SIG Q12H NILSA Last Infusion: 06/19/18 14:38 Dose: Infused Allergies Allergy/AdvReac Type Severity Reaction Status Date / Time sulfamethoxazole Allergy Mild Hives Verified 06/19/18 12:12 [From Bactrim] trimethoprim [From Bactrim] Allergy Mild Hives Verified 06/19/18 12:12 Home Medications Medication Instructions Recorded Confirmed Type Lexapro 10 mg PO DAILY 06/19/18 06/19/18 History aspirin 81 mg PO DAILY 06/19/18 06/19/18 History carbidopa-levodopa [Sinemet] 1 tab PO TID 06/19/18 06/19/18 History celecoxib [Celebrex] 200 mg PO BID 06/19/18 06/19/18 History diclofenac sodium 1 applicatio TOPICAL QID 06/19/18 06/19/18 History donepezil [Aricept] 10 mg PO QPM 06/19/18 06/19/18 History duloxetine [Cymbalta] 60 mg PO BID 06/19/18 06/19/18 History escitalopram oxalate [Lexapro] 10 mg PO DAILY 06/19/18 06/19/18 History esomeprazole magnesium [Nexium] 40 mg PO BID 06/19/18 06/19/18 History glipizide 5 mg PO BID 06/19/18 06/19/18 History linaclotide [Linzess] 145 mcg PO DAILY 06/19/18 06/19/18 History ahqgif-pkorbijg-lkptooa [Zenpep] 1 cap PO 5 TIMES A DAY 06/19/18 06/19/18 History lisinopril 10 mg PO DAILY 06/19/18 06/19/18 History multivitamin 1 tab PO QAM 06/19/18 06/19/18 History prednisone 7.5 mg PO DAILY 06/19/18 06/19/18 History pregabalin [Lyrica] 100 mg PO BID 06/19/18 06/19/18 History rosuvastatin [Crestor] 40 mg PO QPM 06/19/18 06/19/18 History sildenafil [Viagra] 100 mg PO DAILY PRN 06/19/18 06/19/18 History sucralfate [Carafate] 1 g PO Q6H 06/19/18 06/19/18 History sumatriptan succinate 100 mg PO Q2-4H PRN 06/19/18 06/19/18 History temazepam [Restoril] 30 mg PO HS 06/19/18 06/19/18 History Exam Vital signs: Vital Signs 06/19/18 12:02 06/19/18 13:27 06/19/18 13:41 Temperature 97.1 F L Pulse Rate 85 67 65 Respiratory Rate 19 18 Blood Pressure 113/56 L Pulse Oximetry 96 99 06/19/18 13:50 Temperature Pulse Rate 81 Respiratory Rate 20 Blood Pressure Pulse Oximetry Intake & Output 06/18/18 06/19/18 06/19/18 18:59 06:59 18:59 Intake Total 615 / 615 Balance 615 / 615 Weight 120 kg Intake: IV 615 / 615 Maxipime Inj 1,000 MG In NS Inj 100 / 100 100 ML @ 200 mls/hr IV.SIG Q12H NILSA Rx#:[id number] Vancomycin Inj 1,500 MG In NS 515 / 515 Inj 500 ML @ 250 mls/hr IV.SIG ONCE ONE Rx#:[id number] Narrative: GENERAL: This is a well-nourished, well-developed patient, in no apparent distress. SKIN: Warm and dry. HEENT: Normocephalic. Pupils equal round and reactive. Nose without bleeding. Airway patent. NECK: Trachea midline. CARDIOVASCULAR: Regular rate and rhythm without murmurs, gallops, or rubs. RESPIRATORY: Rhonchi throughout. Fair air entry. Minimal wheeze GASTROINTESTINAL: Abdomen soft, non-tender, nondistended. Bowel Sounds normoactive x4. MUSCULOSKELETAL: Extremities without clubbing, cyanosis. +1 edema, vasculitis healing wounds. NEUROLOGICAL: Awake and alert. No focal neuro deficit. Moves all extremities. Normal speech. Results - Labs CBC & Chem 7: 06/20/18 06:31 06/19/18 13:45 Labs: Short CBC 06/19/18 Range/Units 13:45 WBC 10.6 (4.0-11.0) th/mm3 Hgb 13.1 (13.0-17.0) gm/dL Hct 39.9 (39.0-51.0) % Plt Count 135 L (150-450) th/mm3 BMP 06/19/18 13:45 Sodium 144 Potassium 4.1 Chloride 111 H Carbon Dioxide 25.3 BUN 15 Creatinine 1.01 Calcium 8.1 L Cardiac Enzymes 06/19/18 Range/Units 13:45 Troponin I Less than 0.02 L (0.02-0.05) ng/mL Liver Function 06/19/18 Range/Units 13:45 Total Bilirubin 0.3 (0.2-1.0) mg/dL AST 10 L (15-37) U/L ALT 12 (12-78) U/L Alkaline Phosphatase 105 (45-117) U/L Albumin 3.4 (3.4-5.0) g/dL - Imaging Impressions Chest X-Ray 06/19/18 12:54 CONCLUSION: No acute cardiopulmonary findings. Chest CTA 06/19/18 14:24 CONCLUSION: 1. No pulmonary embolus identified. 2. Improving atelectasis in the lung bases. Caprini VTE Risk Assessment Caprini VTE Risk Assessment: Moderate/High Risk (score >= 2) Caprini Risk Assessment Model: Point Value = 1 Point Value = 2 Point Value = 3 Point Value = 5 Age 41-60 Minor surgery BMI > 25 kg/m2 Swollen legs Varicose veins or History of unexplained or recurrent spontaneous Oral contraceptives or hormone replacement Sepsis (< 1 month) Serious lung disease, including pneumonia (< 1 month) Abnormal pulmonary function Acute myocardial infarction Congestive heart failure (< 1 month) History of inflammatory bowel disease Medical patient at bed rest Age 61-74 Arthroscopic surgery Major open surgery (> 45 min) Laparoscopic surgery (> 45 min) Malignancy Confined to bed (> 72 hours) Immobilizing plaster cast Central venous access Age >= 75 History of VTE Family history of VTE Factor V Leiden Prothrombin [id number] Lupus anticoagulant Anticardiolipin antibodies Elevated serum homocysteine Heparin-induced thrombocytopenia Other congenital or acquired thrombophilia Stroke (< 1 month) Elective arthroplasty Hip, pelvis, or leg fracture Acute spinal cord injury (< 1 month) Prophylaxis Regimen: Total Risk Factor Score Risk Level Prophylaxis Regimen 0-1 Low Early ambulation 2 Moderate Order ONE of the following: *Sequential Compression Device (SCD) *Heparin 5000 units SQ BID 3-4 Higher Order ONE of the following medications: *Heparin 5000 units SQ TID *Enoxaparin/Lovenox 40 mg SQ daily (WT < 150 kg, CrCl > 30 mL/min) *Enoxaparin/Lovenox 30 mg SQ daily (WT < 150 kg, CrCl > 10-29 mL/min) *Enoxaparin/Lovenox 30 mg SQ BID (WT < 150 kg, CrCl > 30 mL/min) AND/OR *Sequential Compression Device (SCD) 5 or more Highest Order ONE of the following medications: *Heparin 5000 units SQ TID (Preferred with Epidurals) *Enoxaparin/Lovenox 40 mg SQ daily (WT < 150 kg, CrCl > 30 mL/min) *Enoxaparin/Lovenox 30 mg SQ daily (WT < 150 kg, CrCl > 10-29 mL/min) *Enoxaparin/Lovenox 30 mg SQ BID (WT < 150 kg, CrCl > 30 mL/min) AND *Sequential Compression Device (SCD) Assessment and Plan - Assessment (1) COPD exacerbation Code(s): J44.1 - Status: Acute - Plan Patient is 78-year-old male with past medical history of Parkinson's disease, spinal cord stimulator, HTN, HLD, COPD who initially came into the hospital for complaints of worsening shortness of breath times 4 days. COPD exacerbation versus possible pneumonia History of pneumonia 3 months ago MDR Acinetobacter treated with Unasyn, tobramycin nebs -Chest x-ray negative, CTA negative, possible radiologic delay -Rhonchi throughout. -Levaquin IV -Check sputum culture, check urine Legionella, urine pneumococcal -Albuterol as needed, duo nebs scheduled -Solu-Medrol 40 mg every 8 hours, taper off to p.o. prednisone -May add Symbicort tomorrow -Mucinex -O2 nasal cannula, keep O2 sat greater than 90% wean off O2 if possible. -Incentive spirometry, Acapella Parkinson's disease -Continue home medication Sinemet DM 2 -Hold glipizide for now, insulin sliding scale -Cardiac diabetic diet -Monitor blood glucose Vasculitis -Being followed by Dr. Sanchez and outpatient. Hold home dose prednisone patient is on Solu-Medrol HTN HLD -Continue home medication -Monitor BP trend DVT prop SCDs Code Status: Full Code Discussed Condition With: Patient, , Dr. Omalley Discharge Planning: Plan to DC home when clinically improved
[2018-06-19] MEDS ORDERED: Acetaminophen 325 MG Tablet PO PRN (18:00)
[2018-06-19] MEDS ORDERED: SILDENAFIL 100 MG PO PRN (19:00)
[2018-06-19] MEDS ORDERED: [UNRECOGNIZED DRUG - OTHER] PO PRN (19:00)
[2018-06-19] MEDS ORDERED: glipiZIDE 5 MG Tablet PO SCH (19:00)
[2018-06-19] MEDS ORDERED: Lipase/Protease/Amylase 24/76/120 DR Capsule PO SCH (22:00)
[2018-06-19] MEDS: Duloxetine 60 MG DR Capsule PO SCH (22:27)
[2018-06-19] MEDS: guaiFENesin 600 MG ER Tablet PO SCH (22:29)
[2018-06-19] MEDS: MethylPREDNISolone Sod Succinate Inj 40 MG/ML Vial IV.PUSH SCH (22:33)
[2018-06-19] MEDS: Senna/Docusate Sodium 8.6/50 MG Tablet PO SCH (22:51)
[2018-06-19] MEDS: Sucralfate 1 GM Tablet PO SCH (23:24)
[2018-06-19] MEDS: glipiZIDE 5 MG Tablet PO SCH (23:24)
[2018-06-19] MEDS: Celecoxib 200 MG Capsule PO SCH (23:24)
[2018-06-19] MEDS: Lipase/Protease/Amylase 24/76/120 DR Capsule PO SCH (23:27)
[2018-06-19] MEDS: Insulin NovoLOG Aspart Correctional Sugar Inj SQ SCH (23:52)
[2018-06-20 00:11] LABS: Bilirubin,Urine Negative (Negative); Clarity,Urine Clear (Clear); Color,Urine Yellow (Yellw/Straw); Glucose,Urine (UA) 500 or Greater mg/dL (Negative); Leukocyte Esterase,Urine Negative (Negative); Mucus,Urine Few /lpf (Occasional); Nitrite,Urine Negative (Negative); Specific Gravity,Urine 1.036 (1.002-1.035)
[2018-06-20] MEDS: Sucralfate 1 GM Tablet PO SCH ×4 (01:14→17:59)
[2018-06-20] MEDS: MethylPREDNISolone Sod Succinate Inj 40 MG/ML Vial IV.PUSH SCH ×3 (05:33→20:56)
[2018-06-20 07:13] LABS: Baso % (Auto) 0.1 % (0.0-2.0); Hemoglobin 13.1 gm/dL (13.0-17.0); Lymph # (Auto) 0.6 th/mm3 (1.0-4.8); Lymph % (Auto) 6.9 % (9.0-44.0); Mean Corpuscular HGB Conc 33.6 % (32.0-36.0); Mean Corpuscular Hemoglobin 30.5 pg (27.0-34.0); Mean Corpuscular Volume 90.6 fL (80.0-100.0); Mean Platelet Volume 8.8 fL (7.0-11.0); Mono # (Auto) 0.2 th/mm3 (0.0-0.9); Mono % (Auto) 2.9 % (0.0-8.0); Neut # (Auto) 7.4 th/mm3 (1.8-7.7); Neut % (Auto) 90.1 % (16.0-70.0); Platelet Count 127 th/mm3 (150-450); Red Blood Count 4.31 mil/mm3 (4.50-5.90); Red Cell Distribution Width 18.1 % (11.6-17.2); White Blood Count 8.2 th/mm3 (4.0-11.0)
[2018-06-20 07:39] LABS: Alanine Aminotransferase 10 U/L (12-78); Albumin 3.2 g/dL (3.4-5.0); Anion Gap 11 meq/L (5-15); Aspartate Aminotransferase 9 U/L (15-37); Blood Urea Nitrogen 16 mg/dL (7-18); Calcium 8.9 mg/dL (8.5-10.1); Carbon Dioxide 20.5 meq/L (21.0-32.0); Chloride 109 meq/L (98-107); Glomerular Filtration Rate 75 mL/min (>89); Glucose,Random 214 mg/dL (74-106); Potassium 4.1 meq/L (3.5-5.1); Sodium 140 meq/L (136-145)
[2018-06-20 07:51] LABS: Alkaline Phosphatase 102 U/L (45-117); Total Protein 6.6 g/dL (6.4-8.2)
--- NOTE | 2018-06-20 08:43 | P.PN ---
Subjective Interval history: Follow-up on patient with COPD exacerbation. Patient seen and examined. Patient states that he continues to have difficulty with breathing. He remains short of breath. He denies any sputum production today. He denies any fever or chills. He is very concerned about having a recurrence of the pneumonia he had several months ago. He denies any chest pain. He denies any nausea, vomiting or abdominal pain. Physical Exam Vital signs: Vital Signs 06/19/18 12:02 06/19/18 13:27 06/19/18 13:41 Temperature 97.1 F L Pulse Rate 85 67 65 Respiratory Rate 19 18 Blood Pressure 113/56 L Pulse Oximetry 96 99 06/19/18 13:50 06/19/18 16:11 06/19/18 18:46 Temperature Pulse Rate 81 72 73 Respiratory Rate 20 18 16 Blood Pressure 165/67 H Pulse Oximetry 06/19/18 19:57 06/19/18 20:20 06/19/18 23:08 Temperature 98.4 F Pulse Rate 77 75 Respiratory Rate 17 18 Blood Pressure 152/82 H Pulse Oximetry 96 06/19/18 23:35 06/20/18 03:12 06/20/18 03:43 Temperature 98.5 F 97.7 F Pulse Rate 78 68 78 Respiratory Rate 17 18 19 Blood Pressure 139/64 139/67 Pulse Oximetry 97 06/20/18 07:33 06/20/18 07:43 Temperature 97.6 F Pulse Rate 80 83 Respiratory Rate 16 12 Blood Pressure 147/68 H Pulse Oximetry 95 96 Intake & Output 06/19/18 06/20/18 06/20/18 18:59 06:59 18:59 Intake Total 615 / 615 150 / 150 Output Total 650 / 650 Balance 615 / 615 -500 / -500 Weight 120 kg 120 kg Intake: IV 615 / 615 150 / 150 Maxipime Inj 1,000 MG In NS Inj 100 / 100 100 ML @ 200 mls/hr IV.SIG Q12H [facility]SH Rx#:[id number] Levaquin 750 mg Premix Inj 150 150 / 150 ML @ 100 mls/hr IV.SIG Q24H ARSH Rx#:[id number] Vancomycin Inj 1,500 MG In NS 515 / 515 Inj 500 ML @ 250 mls/hr IV.SIG ONCE ONE Rx#:[id number] Output: Urine 650 / 650 Narrative: GENERAL: Well-developed well-nourished male in no acute distress. Currently appears comfortable during conversation off of oxygen. Awake and alert. No dyspnea appreciated. SKIN: Warm and dry. +bilateral lower extremity vasculitis, healing wounds. HEENT: Atraumatic. Normocephalic. Pupils equal and round. No scleral icterus. No injection or drainage. No nasal bleeding or discharge. Mucous membranes pink and moist. NECK: Trachea midline. CARDIOVASCULAR: Regular rate and rhythm. RESPIRATORY: No accessory muscle use. Mild expiratory wheezing. Diffuse rhonchi noted throughout. GASTROINTESTINAL: Abdomen soft, non-tender, nondistended. +BS. MUSCULOSKELETAL: Extremities without clubbing or cyanosis. +Trace to 1+ pitting edema BLEs. NEUROLOGICAL: Awake and alert. No obvious cranial nerve deficits. Motor grossly within normal limits. Able to move all extremities spontaneously. Normal speech. PSYCHIATRIC: Appropriate mood and affect; insight and judgment normal. Results - Labs CBC & Chem 7: 06/20/18 06:31 06/20/18 06:31 Laboratory Results - last 24 hr 06/19/18 06/19/18 06/19/18 13:45 13:45 13:45 WBC 10.6 RBC 4.35 L Hgb 13.1 Hct 39.9 MCV 91.6 MCH 30.2 MCHC 33.0 RDW 18.5 H Plt Count 135 L MPV 8.8 Neut % (Auto) 76.1 H Lymph % (Auto) 12.8 Travis % (Auto) 9.1 H Eos % (Auto) 1.6 Baso % (Auto) 0.4 Neut # (Auto) 8.0 H Lymph # (Auto) 1.3 Travis # (Auto) 1.0 H Eos # (Auto) 0.2 Baso # (Auto) 0.0 WBC Differential . Differential Comment Auto diff final Sodium 144 Potassium 4.1 Chloride 111 H Carbon Dioxide 25.3 Anion Gap 8 BUN 15 Creatinine 1.01 Estimated GFR 72 L POC Glucose Random Glucose 53 L Calcium 8.1 L Total Bilirubin 0.3 AST 10 L ALT 12 Alkaline Phosphatase 105 Troponin I Less than 0.02 L B-Natriuretic Peptide Total Protein 6.4 Albumin 3.4 Urine Color Urine Clarity Urine pH Ur Specific [place] Urine Protein Urine Glucose (UA) Urine Ketones Urine Occult Blood Urine Nitrate Urine Bilirubin Urine Urobilinogen Ur Leukocyte Esterase Urine RBC Urine WBC Urine Mucus Micro UA Comment Ur Microscopic Review Urine Culture Comments 06/19/18 06/19/18 06/19/18 13:45 19:59 23:34 WBC RBC Hgb Hct MCV MCH MCHC RDW Plt Count MPV Neut % (Auto) Lymph % (Auto) Travis % (Auto) Eos % (Auto) Baso % (Auto) Neut # (Auto) Lymph # (Auto) Travis # (Auto) Eos # (Auto) Baso # (Auto) WBC Differential Differential Comment Sodium Potassium Chloride Carbon Dioxide Anion Gap BUN Creatinine Estimated GFR POC Glucose 266 H 315 H Random Glucose Calcium Total Bilirubin AST ALT Alkaline Phosphatase Troponin I B-Natriuretic Peptide 28 Total Protein Albumin Urine Color Urine Clarity Urine pH Ur Specific [place] Urine Protein Urine Glucose (UA) Urine Ketones Urine Occult Blood Urine Nitrate Urine Bilirubin Urine Urobilinogen Ur Leukocyte Esterase Urine RBC Urine WBC Urine Mucus Micro UA Comment Ur Microscopic Review Urine Culture Comments 06/19/18 06/20/18 06/20/18 23:50 06:31 06:31 WBC 8.2 RBC 4.31 L Hgb 13.1 Hct 39.0 MCV 90.6 MCH 30.5 MCHC 33.6 RDW 18.1 H Plt Count 127 L MPV 8.8 Neut % (Auto) 90.1 H Lymph % (Auto) 6.9 L Travis % (Auto) 2.9 Eos % (Auto) 0.0 Baso % (Auto) 0.1 Neut # (Auto) 7.4 Lymph # (Auto) 0.6 L Travis # (Auto) 0.2 Eos # (Auto) 0.0 Baso # (Auto) 0.0 WBC Differential . Differential Comment Auto diff final Sodium 140 Potassium 4.1 Chloride 109 H Carbon Dioxide 20.5 L Anion Gap 11 BUN 16 Creatinine 0.97 Estimated GFR 75 L POC Glucose Random Glucose 214 H D Calcium 8.9 D Total Bilirubin 0.4 AST 9 L ALT 10 L Alkaline Phosphatase 102 Troponin I B-Natriuretic Peptide Total Protein 6.6 Albumin 3.2 L Urine Color Yellow Urine Clarity Clear Urine pH 5.0 Ur Specific [place] 1.036 H Urine Protein Negative Urine Glucose (UA) 500 or greater Urine Ketones Trace H Urine Occult Blood Negative Urine Nitrate Negative Urine Bilirubin Negative Urine Urobilinogen Less than 2 Ur Leukocyte Esterase Negative Urine RBC 1 Urine WBC 1 Urine Mucus Few H Micro UA Comment Culture not ind Ur Microscopic Review Not Reportable Urine Culture Comments Culture not ind - Imaging Impressions Chest X-Ray 06/19/18 12:54 CONCLUSION: No acute cardiopulmonary findings. Chest CTA 06/19/18 14:24 CONCLUSION: 1. No pulmonary embolus identified. 2. Improving atelectasis in the lung bases. Assessment and Plan - Assessment (1) COPD exacerbation Code(s): J44.1 - Chronic obstructive pulmonary disease with (acute) exacerbation Status: Acute - Plan 78-year-old male with past medical history of Parkinson's disease, spinal cord stimulator, HTN, HLD, COPD who initially came into the hospital for complaints of worsening shortness of breath times 4 days. COPD exacerbation versus possible pneumonia History of pneumonia 3 months ago MDR Acinetobacter treated with Unasyn, tobramycin nebs No history of previous tobacco use Does not follow-up with crisis nurse as outpatient but plans to in the near future Chest x-ray negative, CTA negative, possible radiologic delay urine Legionella, urine pneumococcal neg -Continue on IV Levaquin -sputum cx pending, follow up on result -Albuterol as needed, duo nebs scheduled -Solu-Medrol 40 mg every 8 hours, taper off to p.o. prednisone -Symbicort BID -Mucinex BID -O2 nasal cannula, keep O2 sat greater than 90% wean off O2 if possible. -Incentive spirometry, Acapella DM 2, poorly controlled while on IV Solu-Medrol -Hold home glipizide -begin Levemir 5u BID -Continue Accu-Cheks and insulin sliding scale Vasculitis -Being followed by Dr. Sanchez as outpatient. Hold home dose prednisone patient is on Solu-Medrol. HTN HLD -Continue home medication -Monitor BP trend Parkinson's disease -Continue home medication Sinemet Monoclonal gammopathy Organic brain syndrome Depression -Continue on home medications DVT prop SCDs Code Status: FULL Discussed Condition With: patient, nursing staff, Dr. Abdalla Discharge Planning: Not ready for discharge. Discharge pending clinical improvement.
[2018-06-20] MEDS ORDERED: [UNRECOGNIZED DRUG - OTHER] PO SCH (09:00)
[2018-06-20] MEDS ORDERED: LINACLOTIDE 145 MCG PO SCH (09:00)
[2018-06-20] MEDS: Lipase/Protease/Amylase 24/76/120 DR Capsule PO SCH ×5 (09:32→20:54)
[2018-06-20] MEDS: Duloxetine 60 MG DR Capsule PO SCH ×2 (09:32→20:56)
[2018-06-20] MEDS: Escitalopram 10 MG Tablet PO SCH (09:32)
[2018-06-20] MEDS: Senna/Docusate Sodium 8.6/50 MG Tablet PO SCH ×2 (09:33→20:52)
[2018-06-20] MEDS: guaiFENesin 600 MG ER Tablet PO SCH ×2 (09:33→20:56)
[2018-06-20] MEDS: Celecoxib 200 MG Capsule PO SCH ×2 (09:34→20:55)
[2018-06-20] MEDS: Lisinopril 10 MG Tablet PO SCH (09:34)
[2018-06-20] MEDS: Insulin Detemir Inj 1,000 UNIT/10 ML Vial SQ SCH ×2 (09:35→21:47)
[2018-06-20] MEDS: Insulin NovoLOG Aspart Correctional Sugar Inj SQ SCH ×4 (09:35→21:47)
[2018-06-20] MEDS: glipiZIDE 5 MG Tablet PO SCH (09:41)
--- NOTE | 2018-06-20 16:23 | ECG ---
Date Performed: 06/19/2018 Time Performed: 12:19:23 PTAGE: 78 years EKG: Sinus rhythm WITH FIRST DEGREE AV BLOCK WITH FREQUENT SUPRAVENTRICULAR PREMATURE COMPLEXES IN A BIGEMINAL PATTERN POSSIBLE RIGHT VENTRICULAR CONDUCTION DELAY INFERIOR MYOCARDIAL INFARCTION ABNORMAL ECG INTERPRETATI ON BASED ON A DEFAULT AGE OF 40 YEARS PREVIOUS TRACING : 12/10/2017 16.57 Since the previous tracing, no significant change not ed DOCTOR: Sarah Cárdenas Interpretating Date/Time 06/20/2018 16:21:53
[2018-06-20] MEDS: Budesonide-Formoterol 160/4.5 MCG 6 GM Inhaler INH SCH ×2 (16:25→20:51)
[2018-06-20] MEDS ORDERED: Temazepam 15 MG Capsule PO ONE (22:29)
[2018-06-21] MEDS: Sucralfate 1 GM Tablet PO SCH ×4 (00:18→18:33)
[2018-06-21] MEDS: MethylPREDNISolone Sod Succinate Inj 40 MG/ML Vial IV.PUSH SCH ×3 (06:00→20:37)
[2018-06-21] MEDS: Insulin Detemir Inj 1,000 UNIT/10 ML Vial SQ SCH ×2 (08:17→22:05)
[2018-06-21] MEDS: Lipase/Protease/Amylase 24/76/120 DR Capsule PO SCH ×5 (08:18→22:05)
[2018-06-21] MEDS: Senna/Docusate Sodium 8.6/50 MG Tablet PO SCH ×2 (08:18→20:40)
[2018-06-21] MEDS: guaiFENesin 600 MG ER Tablet PO SCH ×2 (08:18→20:40)
[2018-06-21] MEDS: Duloxetine 60 MG DR Capsule PO SCH ×2 (08:18→20:40)
[2018-06-21] MEDS: Lisinopril 10 MG Tablet PO SCH (08:19)
[2018-06-21] MEDS: Escitalopram 10 MG Tablet PO SCH (08:19)
[2018-06-21] MEDS: Celecoxib 200 MG Capsule PO SCH ×2 (08:19→20:40)
[2018-06-21] MEDS: Budesonide-Formoterol 160/4.5 MCG 6 GM Inhaler INH SCH ×2 (08:20→20:55)
[2018-06-21] MEDS: Insulin NovoLOG Aspart Correctional Sugar Inj SQ SCH ×4 (10:08→22:05)
--- NOTE | 2018-06-21 10:26 | P.PN ---
Subjective Interval history: Follow-up for COPD exacerbation. Patient reports mild improvement compared to yesterday. He reports continued wheezing and dyspnea on exertion, although has been able to ambulate to the restroom. He complains of significant chest congestion with nonproductive cough. He also reports postnasal drip. Denies any chest pain. Denies any fevers or chills. He does not feel ready for discharge. Physical Exam Vital signs: Vital Signs 06/20/18 11:12 06/20/18 11:49 06/20/18 15:29 Temperature 98.4 F 97.8 F Pulse Rate 96 H 83 76 Respiratory Rate 20 20 16 Blood Pressure 133/60 130/67 Pulse Oximetry 94 L 97 06/20/18 19:48 06/20/18 20:00 06/21/18 00:19 Temperature 97.4 F L 97.6 F Pulse Rate 95 H 79 68 Respiratory Rate 18 16 18 Blood Pressure 138/65 140/71 Pulse Oximetry 94 L 97 93 L 06/21/18 00:52 06/21/18 04:00 06/21/18 04:18 Temperature Pulse Rate 68 70 88 Respiratory Rate 20 20 17 Blood Pressure 137/73 Pulse Oximetry 93 L 06/21/18 07:20 06/21/18 07:53 Temperature 97.5 F L Pulse Rate 83 80 Respiratory Rate 20 18 Blood Pressure 153/84 H Pulse Oximetry 95 Intake & Output 06/20/18 06/21/18 06/21/18 18:59 06:59 18:59 Intake Total 100 / 100 150 / 150 Balance 100 / 100 150 / 150 Intake: IV 100 / 100 150 / 150 Maxipime Inj 1,000 MG In NS Inj 100 / 100 100 ML @ 200 mls/hr IV.SIG Q12H [facility] Rx#:[id number] Levaquin 750 mg Premix Inj 150 150 / 150 ML @ 100 mls/hr IV.SIG Q24H [facility]SH Rx#:[id number] Other: Date of Last Bowel Movement 06/19/18 06/19/18 Narrative: GENERAL: Well-nourished, well-developed elderly male patient in [facility]. SKIN: Warm and dry. No rash. HEENT: Normocephalic. Atraumatic. Pupils equal and round. Mucous membranes pink and moist. NECK: Supple. Trachea midline. CARDIOVASCULAR: Regular rate and rhythm. No murmur appreciated. RESPIRATORY: No accessory muscle use. Diffuse expiratory wheezing with scattered rhonchi. Breath sounds equal bilaterally. GASTROINTESTINAL: Abdomen soft, non-tender, nondistended. Normoactive bowel sounds x4. MUSCULOSKELETAL: No obvious deformities. Bilateral lower extremity vasculitis with trace BLE edema. NEUROLOGICAL: Awake and alert. No obvious cranial nerve deficits. Motor grossly within normal limits. Moving all extremities spontaneously. Normal speech. PSYCHIATRIC: Appropriate mood and affect; insight and judgment normal. Results - Labs CBC & Chem 7: 06/20/18 06:31 06/20/18 06:31 Laboratory Results - last 24 hr 06/20/18 06/20/18 06/20/18 12:16 17:51 21:19 POC Glucose 282 H 216 H 187 H 06/21/18 08:24 POC Glucose 185 H Microbiology 06/19/18 23:50 Sputum - Expectorated Sputum Gram Stain - Final 06/19/18 13:45 Blood - Peripheral Aerobic Blood Culture - Preliminary No growth in 1 day 06/19/18 13:45 Blood - Peripheral Anaerobic Blood Culture - Preliminary No growth in 1 day 06/19/18 13:45 Blood - Peripheral Aerobic Blood Culture - Preliminary No growth in 1 day 06/19/18 13:45 Blood - Peripheral Anaerobic Blood Culture - Preliminary No growth in 1 day 06/19/18 23:50 Urine - Clean Catch Urine Streptococcus pneumoniae Antigen ( M - Final Presumptive negative for streptococcus pneumoniae antigen, suggesting no current or recent infection. Infection due to Streptococcus pneumoniae cannot be ruled out since the antigen present in the sample may be below the detection limit of the test. 06/19/18 23:50 Urine - Clean Catch Urine Legionella Antigen - Final Presumptive negative for Legionella pneumophila serogroup 1 antigen in urine, suggesting no recent or recurrent infection. Infection due to Legionella cannot be ruled out since other serogroups and species may cause disease, antigen may not be present in urine in early infection, and the level of antigen present in the urine may be below the detection limit of the test. - Imaging Chest X-Ray 06/19/18 12:54 CONCLUSION: No acute cardiopulmonary findings. Chest CTA 06/19/18 14:24 CONCLUSION: 1. No pulmonary embolus identified. 2. Improving atelectasis in the lung bases. Assessment and Plan - Assessment (1) COPD exacerbation Code(s): J44.1 - Chronic obstructive pulmonary disease with (acute) exacerbation Status: Acute - Plan 78-year-old male with past medical history of Parkinson's disease, spinal cord stimulator, HTN, HLD, COPD who initially came into the hospital for complaints of worsening shortness of breath x4 days. COPD exacerbation versus possible early pneumonia: presents with diffuse wheezing, cough, rhinitis, chest congestion. Hx of pneumonia 3 months ago MDR Acinetobacter treated with Unasyn, tobramycin nebs. Does not follow-up with lsw as outpatient but plans to in the near future. -Chest x-ray reviewed and negative, CTA negative, possible radiologic delay -urine Legionella neg, urine pneumococcal neg -Continue on IV Levaquin -sputum culture with heavy growth normal respiratory carson -duo nebs q4h scheduled, Albuterol prn -Continue IV Solu-Medrol 40 mg every 8 hours, taper off to p.o. prednisone -Symbicort BID -Mucinex BID -O2 nasal cannula, keep O2 sat greater than 90% wean off O2 if possible, does not wear oxygen at home -Incentive spirometry, Acapella -Symptoms slowly improving, not yet ready for discharge DM 2, poorly controlled while on IV Solu-Medrol -Holding home glipizide -begin Levemir 5u BID -Continue Accu-Cheks and insulin sliding scale Vasculitis -Being followed by Dr. Sanchez as outpatient. Hold home dose prednisone as patient is on Solu-Medrol. HTN/HLD -Continue home medications -Monitor BP trend, adjust antihypertensives as needed Parkinson's disease -Continue home medication Sinemet Monoclonal gammopathy Organic brain syndrome Depression -Continue on home medications DVT prophylaxis: SCDs Discharge Planning: Discharge pending further clinical improvement, not yet ready for discharge.
[2018-06-21] MEDS ORDERED: Temazepam 15 MG Capsule PO SCH (21:00)
[2018-06-22] MEDS: Sucralfate 1 GM Tablet PO SCH ×2 (00:54→05:17)
[2018-06-22] MEDS: MethylPREDNISolone Sod Succinate Inj 40 MG/ML Vial IV.PUSH SCH (05:17)
[2018-06-22 07:49] VITALS: BP 133/69; PULSE 66; RESP 16; TEMP 98
[2018-06-22] MEDS ORDERED: LEXAPRO 10 MG PO SCH (09:00)
[2018-06-22] MEDS: guaiFENesin 600 MG ER Tablet PO SCH (09:41)
[2018-06-22] MEDS: Escitalopram 10 MG Tablet PO SCH (09:41)
[2018-06-22] MEDS: Duloxetine 60 MG DR Capsule PO SCH (09:42)
[2018-06-22] MEDS: Lisinopril 10 MG Tablet PO SCH (09:42)
[2018-06-22] MEDS: Senna/Docusate Sodium 8.6/50 MG Tablet PO SCH (09:42)
[2018-06-22] MEDS: Lipase/Protease/Amylase 24/76/120 DR Capsule PO SCH (09:42)
[2018-06-22] MEDS: Celecoxib 200 MG Capsule PO SCH (09:42)
[2018-06-22] MEDS: Budesonide-Formoterol 160/4.5 MCG 6 GM Inhaler INH SCH (09:43)
[2018-06-22] MEDS: Insulin NovoLOG Aspart Correctional Sugar Inj SQ SCH (09:44)
[2018-06-22] MEDS: Insulin Detemir Inj 1,000 UNIT/10 ML Vial SQ SCH (09:44)
[2018-06-22 10:22] VITALS: O2SAT 96
--- NOTE | 2018-06-22 14:01 | P.DS ---
Date of admission: 06/19/18 16:52 Primary care physician: UNKNOWN Anticipated date of discharge: 06/22/18 Brief History from admission: Patient is 78-year-old male with past medical history of Parkinson's disease, spinal cord stimulator, HTN, HLD, COPD who initially came into the hospital for complaints of worsening shortness of breath times 4 days. Patient states that about 4 days ago he starts to cough, increased shortness of breath daily. Reports orthopnea, sputum production, brown colored. Denies any fevers, chills. States that he has pneumonia about 3 months ago, per review of records patient has MDR Acinetobacter treated with Unasyn, tobramycin nebs. is also stating that he just came back from a trip in [place]. Unable to do ADLs due to SOB, has used nebulizer treatment at home about 3 times a day without any relief. Otherwise, denies pain and discomfort. Denies chest pain, palpitations, headaches. Denies fevers, chills, n/v/d. Denies dysuria. Chest x-ray showed no acute cardiopulmonary findings. CTA results showed no pulmonary embolus identified. Improving atelectasis in the lung base. No leukocytosis, vital signs 97.1, 85, 113/56, 96% to 99% on 2 L nasal cannula Patient update on day of discharge: Follow-up for COPD exacerbation. The patient reports feeling much better today. He reports only minimal occasional wheezing today. He states he has been ambulating without difficulty, denies any shortness of breath. His O2 sat is currently 96-98% on room air (he has not been wearing his oxygen all morning) . Denies any fever/chills or chest pain. He feels ready for discharge. He reports only having albuterol nebulizer solution at home. DS: Diagnosis - Discharge Diagnosis (1) COPD exacerbation Status: Acute DS: Medications - Discharge Medications Prescriptions: albuterol sulfate [Ventolin HFA] 1 puff INHALATION Q4-6H PRN #1 inh PRN Reason: shortness of breath/wheezing budesonide-formoterol [Symbicort] 2 puff INH BID #1 inh guaifenesin [Mucinex] 600 mg PO BID #14 tab ipratropium-albuterol 1 amp NEB Q6HR NEB #360 ml levofloxacin 750 mg PO DAILY 5 Days #5 tab prednisone [Deltasone] 20 mg PO DIRECTED #10 tab DS: Summary Hospital Course: 78-year-old male with past medical history of Parkinson's disease, spinal cord stimulator, HTN, HLD, COPD who initially came into the hospital for complaints of worsening shortness of breath x4 days. COPD exacerbation with suspected early pneumonia: presented with diffuse wheezing/rhonchi, cough, rhinitis, chest congestion. Hx of pneumonia 3 months ago MDR Acinetobacter treated with Unasyn, tobramycin nebs. Does not follow-up with church musician as outpatient but plans to in the near future. Chest x-ray reviewed and negative, CTA negative, suspect radiologic delay. Urine Legionella neg, urine pneumococcal neg. Given IV Levaquin. Sputum culture with heavy growth normal respiratory carson. Given duo nebs q4h scheduled, Albuterol prn. Given IV Solu-Medrol 40 mg every 8 hours, tapered to p.o. prednisone at discharge. Started on Symbicort BID. Mucinex BID. O2 nasal cannula, keep O2 sat greater than 90% wean off O2 if possible, does not wear oxygen at home. Encouraged to continue use of Incentive spirometry, Acapella. Patient significantly improved, lungs mostly clear at discharge, ambulating without difficulty, and O2 sat 96-98% on room air. Given prescriptions for Prednisone taper, Duonebs q6h, Ventolin inhaler prn, Levaquin, Mucinex, Symbicort. - Time Spent with Patient Total time spent providing and/or coordinating discharge services: Less than 30 minutes - Quality: VTE Deep Vein Thrombosis/Pulmonary Embolism Present on Admission: No Exam Vital signs: Vital Signs 06/21/18 15:38 06/21/18 15:48 06/21/18 19:14 Temperature 97.8 F Pulse Rate 76 79 54 L Respiratory Rate 18 20 24 Blood Pressure 118/62 Pulse Oximetry 95 98 06/21/18 23:41 06/22/18 00:00 06/22/18 03:20 Temperature 98.6 F Pulse Rate 55 L 65 82 Respiratory Rate 16 19 20 Blood Pressure 131/68 Pulse Oximetry 92 L 06/22/18 03:50 06/22/18 07:36 06/22/18 07:42 Temperature 97.4 F L 98.0 F Pulse Rate 72 70 66 Respiratory Rate 18 18 16 Blood Pressure 113/70 133/69 Pulse Oximetry 93 L 93 L 98 06/22/18 08:00 Temperature Pulse Rate Respiratory Rate Blood Pressure Pulse Oximetry 96 Intake & Output 06/21/18 06/22/18 06/22/18 18:59 06:59 18:59 Intake Total 150 / 150 Balance 150 / 150 Weight 119.748 kg Intake: IV 150 / 150 Levaquin 750 mg Premix Inj 150 150 / 150 ML @ 100 mls/hr IV.SIG Q24H ARSH Rx#:[id number] Other: # Voids 2 Date of Last Bowel Movement 06/19/18 06/19/18 Narrative: GENERAL: Well-nourished, well-developed elderly male patient in [facility]. SKIN: Warm and dry. No rash. HEENT: Normocephalic. Atraumatic. Pupils equal and round. Mucous membranes pink and moist. CARDIOVASCULAR: Regular rate and rhythm. No murmur appreciated. RESPIRATORY: No accessory muscle use. Mostly clear to auscultation with very occasional mild expiratory wheezing. Breath sounds equal bilaterally. GASTROINTESTINAL: Abdomen soft, non-tender, nondistended. Normoactive bowel sounds x4. MUSCULOSKELETAL: No obvious deformities. Bilateral lower extremity vasculitis with trace BLE edema. NEUROLOGICAL: Awake and alert. No obvious cranial nerve deficits. Motor grossly within normal limits. Moving all extremities spontaneously. Normal speech. PSYCHIATRIC: Appropriate mood and affect; insight and judgment normal. Results Procedures completed during hospitalization: None. Labs on day of discharge: Labs from last 24 hours 06/22/18 06/22/18 06/21/18 08:26 02:56 20:50 POC Glucose 209 H 229 H 187 H 06/21/18 17:07 POC Glucose 210 H Preliminary micro results at discharge 06/19/18 13:45 Aerobic Blood Culture - Preliminary Blood - Peripheral No growth in 3 days Anaerobic Blood Culture - Preliminary No growth in 3 days 06/19/18 13:45 Aerobic Blood Culture - Preliminary Blood - Peripheral No growth in 3 days Anaerobic Blood Culture - Preliminary No growth in 3 days - Impressions ITS Impressions Chest X-Ray 06/19/18 12:54 CONCLUSION: No acute cardiopulmonary findings. Chest CTA 06/19/18 14:24 CONCLUSION: 1. No pulmonary embolus identified. 2. Improving atelectasis in the lung bases. Discharge Plan - Discharge Disposition Patient Disposition: Discharge Home - Discharge Condition Condition: Stable - Discharge Order Discharge Orders: Discharge Order (Routine); Ordered 06/22/18 Ordered By: Belen Severino - Discharge Details Anticipated Discharge Date: 06/22/18 - Physicians Team Primary Care Provider: UNKNOWN, Attending Provider: Corby Abdalla Other Providers: Press,Insurance
== END 2018-06-22 13:50 | disposition home or self-care (01) ==
LOC: NEPE 11:59 → INTOOBSV 16:52 → NEDA 16:52 → NEPHCDU 19:55
PROVIDERS: ADMIT Hospitalist; ATTEND Hospitalist
DX: J44.1 Chronic obstructive pulmonary disease with (acute) exacerbation; I77.6 Arteritis, unspecified; F03.90 Unspecified dementia, unspecified severity, without behavioral disturbance, psychotic disturbance, mood disturbance, and anxiety; Z87.01 Personal history of pneumonia (recurrent); G20 Parkinson's disease; R06.01 Orthopnea; L03.90 Cellulitis, unspecified; R06.2 Wheezing; J98.11 Atelectasis; Z79.84 Long term (current) use of oral hypoglycemic drugs; R07.9 Chest pain, unspecified; I10 Essential (primary) hypertension; K21.9 Gastro-esophageal reflux disease without esophagitis; E78.5 Hyperlipidemia, unspecified; Z86.73 Personal history of transient ischemic attack (TIA), and cerebral infarction without residual deficits; Z79.82 Long term (current) use of aspirin; Z79.899 Other long term (current) drug therapy; I44.0 Atrioventricular block, first degree; I49.3 Ventricular premature depolarization; D47.2 Monoclonal gammopathy; R05 Cough

== ENCOUNTER 2018-06-28 12:43 | Inpatient (IN) ==
[2018-06-28] MEDS ORDERED: MethylPREDNISolone Sod Succinate Inj 125 MG/2 ML Vial IV.PUSH ONE (13:11)
[2018-06-28 14:04] LABS: Baso # (Auto) 0.1 th/mm3 (0.0-0.2); Baso % (Auto) 0.5 % (0.0-2.0); Eos % (Auto) 0.3 % (0.0-4.0); Hematocrit 39.8 % (39.0-51.0); Hemoglobin 13.2 gm/dL (13.0-17.0); Lymph # (Auto) 1.1 th/mm3 (1.0-4.8); Lymph % (Auto) 8.7 % (9.0-44.0); Mean Corpuscular HGB Conc 33.1 % (32.0-36.0); Mean Corpuscular Hemoglobin 30.3 pg (27.0-34.0); Mean Corpuscular Volume 91.5 fL (80.0-100.0); Mean Platelet Volume 8.9 fL (7.0-11.0); Mono # (Auto) 0.7 th/mm3 (0.0-0.9); Mono % (Auto) 5.3 % (0.0-8.0); Neut # (Auto) 11.1 th/mm3 (1.8-7.7); Neut % (Auto) 85.2 % (16.0-70.0); Platelet Count 155 th/mm3 (150-450); Red Blood Count 4.35 mil/mm3 (4.50-5.90); Red Cell Distribution Width 18.4 % (11.6-17.2)
[2018-06-28 14:05] LABS: Alanine Aminotransferase 21 U/L (12-78); Anion Gap 12 meq/L (5-15); Aspartate Aminotransferase 23 U/L (15-37); Blood Urea Nitrogen 13 mg/dL (7-18); Calcium 7.6 mg/dL (8.5-10.1); Carbon Dioxide 21.2 meq/L (21.0-32.0); Chloride 110 meq/L (98-107); Glomerular Filtration Rate 69 mL/min (>89); Glucose,Random 162 mg/dL (74-106); Sodium 143 meq/L (136-145)
--- NOTE | 2018-06-28 14:06 | XR ---
EXAM DATE: 06/28/2018 1:11 PM EDT AGE/SEX: 78 years / Male INDICATIONS: Short of breath and pressure in chest today CLINICAL DATA: This is the patient's initial encounter. Patient reports that signs and symptoms have been present for 3 days and indicates a pain score of 5/10. MEDICAL/SURGICAL HISTORY: Chronic obstructive pulmonary disease. Non-responsive. [place] [facility] [place]/19/[place]. . FINDINGS: A single AP view of the chest demonstrates the lungs to be symmetrically aerated without evidence of mass, infiltrate or effusion. There is a minimal platelike atelectasis in the left lung base. Otherwi se no significant changes are seen compared to the prior exam. The cardiomediastinal contours are unr emarkable and stable. Osseous structures are intact and stable. CONCLUSION: Minimal platelike atelectasis in left lung base. Otherwise, no other focal or acute pulmonary infiltrates. Electronically signed by: Maksim Scanlon MD 06/28/2018 2:05 PM EDT
[2018-06-28 14:08] LABS: Alkaline Phosphatase 101 U/L (45-117); Total Protein 6.2 g/dL (6.4-8.2)
--- NOTE | 2018-06-28 14:21 | ED ---
HPI General Chief Complaint: Chest Pain Stated Complaint: respiratory/dr sent Time Seen by Provider: 06/28/18 13:04 Source: patient and family Mode of arrival: ambulatory Limitations: no limitations History of Present Illness HPI narrative: 78-year-old male the presents to the ED for evaluation of shortness of breath. Patient has a history of COPD as well as pneumonia. Patient was recently admitted for pneumonia and COPD exacerbation. He was here for almost a week.. Patient was given breathing treatments as well as antibiotics. Patient has been released with medications but the symptoms continue. Per patient he went to his project control analyst today and he was concerned that he may need to come back to get reevaluated. Patient states that overall she just feels very short of breath. He still has a lot of wheezing on exam. He denies any chest pain but states having shortness of breath with exertion. No history of CHF exacerbation but has noted leg swelling and abdominal swelling. Per patient is been ongoing since the beginning of the year when he was admitted to a different hospital where he had a significant pneumonia that require IV antibiotics for some time. Per patient he did used to smoke but no longer does so. He does have inhalers and nebulizers at home with minimal relief of symptoms. He does not use oxygen. Per patient his doctor recently up his prednisone to 20 mg but he continues to have the symptoms. He denies any recent travel. No urinary or bowel movement issues. Related Data Home Medications Medication Instructions Recorded Confirmed Lexapro 10 mg PO DAILY 06/19/18 06/28/18 aspirin 81 mg PO DAILY 06/19/18 06/28/18 carbidopa-levodopa [Sinemet] 1 tab PO TID 06/19/18 06/28/18 celecoxib [Celebrex] 200 mg PO BID 06/19/18 06/28/18 diclofenac sodium 1 applicatio TOPICAL QID 06/19/18 06/28/18 donepezil [Aricept] 10 mg PO QPM 06/19/18 06/28/18 duloxetine [Cymbalta] 60 mg PO BID 06/19/18 06/28/18 escitalopram oxalate [Lexapro] 10 mg PO DAILY 06/19/18 06/28/18 esomeprazole magnesium [Nexium] 40 mg PO BID 06/19/18 06/28/18 glipizide 5 mg PO BID 06/19/18 06/28/18 linaclotide [Linzess] 145 mcg PO DAILY 06/19/18 06/28/18 [id number] [Zenpep] 1 cap PO 5 TIMES A DAY 06/19/18 06/28/18 lisinopril 10 mg PO DAILY 06/19/18 06/28/18 multivitamin 1 tab PO QAM 06/19/18 06/28/18 pregabalin [Lyrica] 100 mg PO BID 06/19/18 06/28/18 rosuvastatin [Crestor] 40 mg PO QPM 06/19/18 06/28/18 sildenafil [Viagra] 100 mg PO DAILY PRN 06/19/18 06/28/18 sucralfate [Carafate] 1 g PO Q6H 06/19/18 06/28/18 sumatriptan succinate 100 mg PO Q2-4H PRN 06/19/18 06/28/18 temazepam [Restoril] 30 mg PO HS 06/19/18 06/28/18 Previous Rx's Medication Instructions Recorded albuterol sulfate [Ventolin HFA] 1 puff INHALATION Q4-6H PRN #1 inh 06/22/18 budesonide-formoterol [Symbicort] 2 puff INH BID #1 inh 06/22/18 guaifenesin [Mucinex] 600 mg PO BID #14 tab 06/22/18 ipratropium-albuterol 1 amp NEB Q6HR NEB #360 ml 06/22/18 prednisone [Deltasone] 20 mg PO DIRECTED #10 tab 06/22/18 Allergies Allergy/AdvReac Type Severity Reaction Status Date / Time sulfamethoxazole Allergy Mild Hives Verified 06/19/18 12:12 [From Bactrim] trimethoprim [From Bactrim] Allergy Mild Hives Verified 06/19/18 12:12 Review of Systems ROS: all other systems reviewed are negative [facility] Medical History Medical History Abscess of gallbladder (Acute) Cellulitis (Acute) Chronic left shoulder pain (Acute) Dementia (Acute) Diabetes (Acute) HLD (hyperlipidemia) (Acute) HTN (hypertension) (Acute) Headache (Acute) Monoclonal gammopathy (Acute) Parkinson disease (Acute) Spinal cord stimulator status (Acute) Stroke (Acute) Surgical History Surgical History History of bilateral knee replacement (Acute) Hx of cholecystectomy (Acute) Total knee replacement status (Acute) Family History Family History Father Emphysema lung Social History Social History Substance History: No History of Abuse Second Hand Smoke Exposure: Yes Smoking Status: Former smoker How Often Do You Have a Drink Containing Alcohol: Unable to Obtain Recent Travel in [facility] within the Last 8 Weeks: No Recent Out of Country Travel within the Last 8 Weeks: No Immunization History Tetanus Immunization: Unsure Exam Narrative Exam Narrative: GENERAL: Well appearing SKIN: Focused skin assessment warm/dry. HEAD: Atraumatic. Normocephalic. EYES: Pupils equal and round. No scleral icterus. No injection or drainage. ENT: No nasal bleeding or discharge. Mucous membranes pink and moist. Tongue is midline. No uvula deviation. NECK: Trachea midline. No JVD. CARDIOVASCULAR: Regular rate and rhythm. No murmur appreciated. RESPIRATORY: No accessory muscle use. Wheezing or rales heard in all lung [place]. Breath sounds equal bilaterally. GASTROINTESTINAL: Abdomen soft, non-tender, nondistended. Hepatic and splenic margins not palpable. MUSCULOSKELETAL: No obvious deformities. No clubbing. No cyanosis. No edema. Full range of motion of the upper and lower extremities bilaterally. 2+ pulses bilaterally. 1+ pitting edema on the lower extremities. NEUROLOGICAL: Awake and alert. No obvious cranial nerve deficits. Motor grossly within normal limits. Normal speech. PSYCHIATRIC: Appropriate mood and affect; insight and judgment normal. Course Initial Documented Vital Signs Temperature 97.9 F 06/28/18 12:46 Pulse Rate 75 06/28/18 12:46 Respiratory Rate 22 06/28/18 12:46 Pulse Oximetry 91 L 06/28/18 12:46 Last Documented Vital Signs Temperature 97.9 F 06/28/18 12:46 Pulse Rate 68 06/28/18 14:05 Respiratory Rate 25 H 06/28/18 14:05 Blood Pressure 122/57 L 06/28/18 14:05 Pulse Oximetry 93 L 06/28/18 14:05 Medical Decision Making RAMA Attestation RAMA supervised visit: Yes Attestation: The history, exam, and medical decision-making in the associated mid-level provider note were completed with my assistance. I reviewed and agree with the findings presented. I attest that I had a [id number] encounter with the patient on the same day, and personally performed and documented my assessment and findings in the medical record. *My assessment and Findings: 78-year-old man, COPD, not improving despite recent hospitalization and outpatient treatment. History of Acinetobacter infection requiring prolonged hospitalization fairly recently. Completed home antibiotic therapy. Now with symptoms suggestive of CHF including lower extremity edema, marked orthopnea, PND. My suspicion is this is not COPD but recurrent pneumonia or more likely CHF. He has no history of CHF in the past. Patient will be admitted, will need echo, may need further evaluation by pulmonology for pneumonia given his history of Acinetobacter infection. MDM Narrative Medical decision making narrative: 78-year-old male the presents to the ED for evaluation of shortness of breath. Patient was properly examined and was found to have signs and symptoms consistent appears to be likely COPD exacerbation with possible pneumonia. The review the medical record patient did had significant symptoms on his last admission. Patient appears to be with the same presentation. He is already taking steroids and finished antibiotics yesterday. He still not feeling better. Patient was sent here by his project control analyst Dr Templeton who recommended evaluation. Labs and imaging came back essentially unremarkable other than what appears to be elevated lactic acid. Patient still very symptomatic. Patient's O2 sat still low even with oxygen. Remission at this time by my attending Dr. Meade who evaluated the patient is for admission for further evaluation. Patient does have some swelling could be CHF although his BNP is negative. Could also be the prednisone that he is taking. Case discussed with my attending Dr. Meade who recommends admission. Case discussed with Dr. Ambrocio by my attending Dr. Meade who agreed to admission to his service. Patient was admitted. Family and patient agree with plan. Medical Screen Exam Complete: Yes Emergency Medical Condition: Yes Differential Diagnosis Differential Diagnosis: COPD exacerbation versus CHF versus pneumonia versus failed outpatient treatment Medical Records Medical records reviewed: Yes I reviewed the patient's medical records. Lab Data Lab results reviewed: Yes I reviewed the patient's lab results. Lab results narrative: Troponin negative. Lactic acid slightly elevated Result diagrams: 06/28/18 13:20 06/28/18 13:20 Lab Results 06/28/18 06/28/18 06/28/18 Range/Units 13:20 13:20 13:20 WBC 13.0 H (4.0-11.0) th/mm3 RBC 4.35 L (4.50-5.90) mil/mm3 Hgb 13.2 (13.0-17.0) gm/dL Hct 39.8 (39.0-51.0) % MCV 91.5 (80.0-100.0) fL MCH 30.3 (27.0-34.0) pg MCHC 33.1 (32.0-36.0) % RDW 18.4 H (11.6-17.2) % Plt Count 155 (150-450) th/mm3 MPV 8.9 (7.0-11.0) fL Prelim Diff (Auto) Slide review pending Neut % (Auto) 85.2 H (16.0-70.0) % Lymph % (Auto) 8.7 L (9.0-44.0) % [place] % (Auto) 5.3 (0.0-8.0) % Eos % (Auto) 0.3 (0.0-4.0) % Baso % (Auto) 0.5 (0.0-2.0) % Neut # (Auto) 11.1 H (1.8-7.7) th/mm3 Lymph # (Auto) 1.1 (1.0-4.8) th/mm3 [place] # (Auto) 0.7 (0.0-0.9) th/mm3 Eos # (Auto) 0.0 (0.0-0.4) th/mm3 Baso # (Auto) 0.1 (0.0-0.2) th/mm3 WBC Differential Manual diff final Seg Neuts % (Manual) 71 H (16-70) % Band Neuts % (Manual) 6 (0-6) % Lymphocytes % (Manual) 11 (9-44) % Monocytes % (Manual) 10 H (0-8) % Basophils % (Manual) 1 (0-2) % Myelocytes % (Man) 1 H (0-0) % Abs Neuts (Manual) 10.1 H (1.8-7.7) th/mm3 Differential Comment . Platelet Estimate Low L (Normal) Platelet Morphology Normal (Normal) Ovalocytes 1+ H (None) Acanthocytes (Spur) Occ H (None) Sodium 143 (136-145) meq/L Potassium 5.0 (3.5-5.1) meq/L Chloride 110 H (98-107) meq/L Carbon Dioxide 21.2 (21.0-32.0) meq/L Anion Gap 12 (5-15) meq/L BUN 13 (7-18) mg/dL Creatinine 1.04 (0.60-1.30) mg/dL Estimated GFR 69 L (>89) mL/min Random Glucose 162 H (74-106) mg/dL Lactic Acid 2.4 H (0.4-2.0) mmol/L Calcium 7.6 L (8.5-10.1) mg/dL Total Bilirubin 0.4 (0.2-1.0) mg/dL AST 23 (15-37) U/L ALT 21 (12-78) U/L Alkaline Phosphatase 101 (45-117) U/L Total Creatine Kinase (39-308) U/L Troponin I Less than 0.02 L (0.02-0.05) ng/mL B-Natriuretic Peptide (0-100) pg/mL Total Protein 6.2 L (6.4-8.2) g/dL Albumin 3.0 L (3.4-5.0) g/dL 06/28/18 06/28/18 Range/Units 13:20 13:20 WBC (4.0-11.0) th/mm3 RBC (4.50-5.90) mil/mm3 Hgb (13.0-17.0) gm/dL Hct (39.0-51.0) % MCV (80.0-100.0) fL MCH (27.0-34.0) pg MCHC (32.0-36.0) % RDW (11.6-17.2) % Plt Count (150-450) th/mm3 MPV (7.0-11.0) fL Prelim Diff (Auto) Neut % (Auto) (16.0-70.0) % Lymph % (Auto) (9.0-44.0) % [place] % (Auto) (0.0-8.0) % Eos % (Auto) (0.0-4.0) % Baso % (Auto) (0.0-2.0) % Neut # (Auto) (1.8-7.7) th/mm3 Lymph # (Auto) (1.0-4.8) th/mm3 [place] # (Auto) (0.0-0.9) th/mm3 Eos # (Auto) (0.0-0.4) th/mm3 Baso # (Auto) (0.0-0.2) th/mm3 WBC Differential Seg Neuts % (Manual) (16-70) % Band Neuts % (Manual) (0-6) % Lymphocytes % (Manual) (9-44) % Monocytes % (Manual) (0-8) % Basophils % (Manual) (0-2) % Myelocytes % (Man) (0-0) % Abs Neuts (Manual) (1.8-7.7) th/mm3 Differential Comment Platelet Estimate (Normal) Platelet Morphology (Normal) Ovalocytes (None) Acanthocytes (Spur) (None) Sodium (136-145) meq/L Potassium (3.5-5.1) meq/L Chloride (98-107) meq/L Carbon Dioxide (21.0-32.0) meq/L Anion Gap (5-15) meq/L BUN (7-18) mg/dL Creatinine (0.60-1.30) mg/dL Estimated GFR (>89) mL/min Random Glucose (74-106) mg/dL Lactic Acid (0.4-2.0) mmol/L Calcium (8.5-10.1) mg/dL Total Bilirubin (0.2-1.0) mg/dL AST (15-37) U/L ALT (12-78) U/L Alkaline Phosphatase (45-117) U/L Total Creatine Kinase 72 (39-308) U/L Troponin I (0.02-0.05) ng/mL B-Natriuretic Peptide 24 (0-100) pg/mL Total Protein (6.4-8.2) g/dL Albumin (3.4-5.0) g/dL Imaging Data Attestation: I personally reviewed and interpreted this imaging study as follows : Radiologist's impression: Chest X-Ray 06/28/18 13:11 CONCLUSION: Minimal platelike atelectasis in left lung base. Otherwise, no other focal or acute pulmonary infiltrates. ECG Data EKG Prior to Arrival: No Attestation: I personally reviewed and interpreted this ECG as follows: Interpretation: EKG shows sinus rhythm with no sign of acute ischemia or arrhythmia read by me and attending. Vent rate of 72 bpm, MD interval of 164. Patient does have some PVCs noted on the EKG. Discharge Plan Discharge Disposition Patient Disposition: 30 Still Patient Discharge Details Diagnosis: Acute respiratory distress, COPD exacerbation, CHF (congestive heart failure) Physicians Team ED Provider: Marcos Meade ED Midlevel Provider: Britton Pierre Primary Care Provider: UNKNOWN, Attending Provider: Yoshi Ambrocio Status ED Status: Admitted Patient
[2018-06-28 14:48] LABS: Lymphocytes 11 % (9-44); Monocytes 10 % (0-8); Myelocytes 1 % (0-0)
[2018-06-28 14:50] LABS: Acanthocytes Occ; Ovalocytes 1+; Platelet Morphology Normal (Normal)
[2018-06-28] MEDS ORDERED: Acetaminophen 325 MG Tablet PO PRN (15:40)
[2018-06-28] MEDS ORDERED: Bisacodyl 10 MG Supp RECTAL PRN (15:40)
[2018-06-28] MEDS ORDERED: Dextrose 50% in Water 50 ML Vial IV.PUSH PRN (15:43)
[2018-06-28] MEDS ORDERED: Morphine Sulfate Inj 2 MG/ML Vial IV.PUSH PRN (15:44)
[2018-06-28] MEDS ORDERED: oxyCODONE/Acetaminophen 10/325 Tablet PO PRN (15:44)
[2018-06-28] MEDS ORDERED: Naloxone Inj 0.4 MG/ML Vial IV.PUSH PRN (15:44)
[2018-06-28] MEDS ORDERED: PT:LINZESS 145 MCG PO SCH (15:45)
[2018-06-28] MEDS ORDERED: Vancomycin Inj 1 GM/200 ML PIGGYBACK IV.SIG ONE (16:38)
[2018-06-28] MEDS ORDERED: Vancomycin Consult Pharmacy OTHER PRN (16:38)
[2018-06-28] MEDS ORDERED: Vancomycin Inj 1,000 MG in Sodium Chlor 0.9% Inj 250 ML IV.SIG ONE (17:00)
--- NOTE | 2018-06-28 17:01 | P.HPIM ---
History of Present Illness Service: [facility] Primary Care Physician: UNKNOWN Chief Complaint: WORSENING shortness of breath History of Present Illness: Patient is a 78-year-old male who presented to the emergency department after being seen by his cloth folder hand today for increasing shortness of breath. Has a history of COPD as well as pneumonia. Recently admitted to the hospital for pneumonia and COPD exacerbation. Was given breathing treatments as well as antibiotics. He was discharged. He went and followed up with his cloth folder hand today still very short of breath still wheezing rhonchi. Denies any history of CHF exacerbation is had some some leg swelling and some abdominal swelling. This is been ongoing for an extended period time. Had previously had an echocardiogram in October of this year which showed an EF of 65-70%. His BNP was only 24. His been using nebulizers at home without much relief. Does not have home oxygen. Patient had had his prednisone up to 20 mg daily still having symptoms still very dyspneic and having to have almost orthopneic type symptoms. And not able to really lay flat. Had previously had an issue with Acinetobacter infection. Will make sure that his coverage is broadened to include Zosyn and vancomycin and consult infectious disease as well as pulmonary will discontinue the Levaquin probably tomorrow. Patient's past medical history also includes diabetes and will make sure that he is on sliding scale coverage and Accu-Cheks with before meals and at bedtime Also has a history of Parkinson's disease and memory issues and depression GERD diabetes and history of pancreatitis As well as hyperlipidemia and GERD and hypertension Patient has failed outpatient therapy also Inpatient Certification: I certify that the inpatient services were ordered in accordance with Medicare regulations governing the order. This includes certification that hospital inpatient services are reasonable and necessary and in the case of services not specified as inpatient-only under 42 CFR 419.22(n), that they are appropriately provided as inpatient services in accordance to with the 2-midnight benchmark under 43 CFR 412.3(e) Estimated Total Length of Stay (Days): 5 Plans for Post Hospital Care: Not yet determined Review of Systems All other systems reviewed negative except as stated in HPI Respiratory: Reports chest congestion, Reports cough, Reports excessive phlegm production, Reports pain with cough, Reports shortness of breath, Reports shortness of breath with activity, Reports wheezing PMFSH - History History Provided By: Patient - Medical History Medical History: Medical History (Last Updated 06/28/18 @ 16:49 by Yoshi Ambrocio DO) Anxiety Constipation Depression GERD (gastroesophageal reflux disease) Multiple drug resistant Acinetobacter infection Abscess of gallbladder Cellulitis Chronic left shoulder pain Dementia Diabetes HLD (hyperlipidemia) HTN (hypertension) Headache Monoclonal gammopathy Parkinson disease Spinal cord stimulator status Stroke - Surgical History Surgical History: Surgical History (Last Updated 06/28/18 @ 16:49 by Yoshi Ambrocio DO) History of bronchoscopy History of bilateral knee replacement Hx of cholecystectomy Total knee replacement status - Family History Family History: Family History (Last Reviewed 06/28/18 @ 16:49 by Yoshi Ambrocio DO) Father Emphysema lung - Tobacco History Second Hand Smoke Exposure: Yes Smoking Status: Former smoker - Alcohol History How Often Do You Have a Drink Containing Alcohol: Unable to Obtain - Substance Use History Substance History: No History of Abuse - Travel History History of Recent Travel: No Recent Travel in the [place] Within the Last 8 Weeks: No Recent Travel Out of the Country Within the Last 8 Weeks: No - Immunization History Tetanus Immunization: Unsure Medications and Allergies Active Medications: Active Medications Acetaminophen (Tylenol) 650 mg PO Q4H PRN PRN Reason: Temp > 100.4 Al Hydroxide/Mg Hydroxide (Milk Of [place]) 30 ml PO Q12H PRN PRN Reason: Mild Constipation Albuterol (Albuterol Neb (Prn)) 2.5 mg NEB Q2HR NEB PRN PRN Reason: SHORTNESS OF BREATH Albuterol (Duoneb Neb (Nilsa)) 1 ampul NEB Q4HR NEB NILSA Lipase/Protease/Amylase (Steve Sales 24/76/120) 1 cap PO 5 TIMES A DAY NILSA Aspirin (Ecotrin) 81 mg PO DAILY NILSA Bisacodyl (Dulcolax Supp) 10 mg RECTAL DAILY PRN PRN Reason: SEVERE CONSITIPATION Budesonide/Formoterol Fumarate (Symbicort 160/4.5 Mcg Inh) 2 puff INH BID NILSA Carbidopa/Levodopa (Sinemet 25/100 Mg) 1 tab PO TID NILSA Celecoxib (Celebrex) 200 mg PO BID NIL[facility] Dextrose (D50w Vial) 50 ml IV.PUSH UNSCH PRN PRN Reason: PER HYPOGLYCEMIA PROTOCOL Duloxetine HCl (Cymbalta) 60 mg PO BID [facility] Enoxaparin Sodium (Lovenox Inj) 40 mg SQ Q24H NILSA Escitalopram Oxalate (Lexapro) 10 mg PO DAILY [facility] Glipizide (Glucotrol) 5 mg PO BID NIL[facility] Glucagon (Glucagon Inj) 1 mg OTHER PRN PRN PRN Reason: for Hypoglycemia Protocol Guaifenesin (Mucinex Er) 600 mg PO BID NILSA Levofloxacin/Dextrose (Levaquin 750 Mg Premix Inj) 150 mls @ 100 mls/hr IV.SIG Q24H NILSA Vancomycin/Sodium Chloride (Vancomycin Inj) 1 gm in 200 mls @ 200 mls/hr IV.SIG ONCE ONE Stop: 06/28/18 17:37 Piperacillin/Tazobactam/Dextrose (Zosyn 3.375 Gm Premix) 50 mls @ 100 mls/hr IV.SIG Q8H NILSA Insulin Aspart (Novolog Insulin Correctional Sugar Inj) 0 unit SQ ACHS AND 3AM NILSA; Protocol Ipratropium Gays (Atrovent Neb) 0.5 mg NEB Q6HR NEB PRN PRN Reason: SHORTNESS OF BREATH Lactulose (Lactulose Liq) 30 ml PO DAILY PRN PRN Reason: SEVERE CONSITIPATION Lisinopril (Prinivil) 10 mg PO DAILY [facility] Methylprednisolone Sodium Succinate (Solumedrol Inj) 60 mg IV.PUSH Q6H NILSA Morphine Sulfate (Morphine Inj) 4 mg IV.PUSH Q3H PRN PRN Reason: PAIN 6-10;IF UNABLE TO TAKE PO Morphine Sulfate (Morphine Inj) 2 mg IV.PUSH Q3H PRN PRN Reason: PAIN 3-5; IF UABLE TO TAKE PO Morphine Sulfate (Morphine Inj) 4 mg IV.PUSH Q3H PRN PRN Reason: BREAKTHROUGH PAIN Naloxone HCl (Narcan Inj) 0.4 mg IV.PUSH UNSCH PRN PRN Reason: SEE LABEL COMMENTS Non-Formulary Medication (Diclofenac Sodium [Diclofenac Sodium]) 1 applicatio TOPICAL QID [facility] Non-Formulary Medication (Linaclotide [Linzess]) 145 mcg PO DAILY [facility] Non-Formulary Medication (Multivitamin [Multivitamin]) 1 tab PO QAM [facility] Non-Formulary Medication (Rosuvastatin) 40 mg PO QPM [facility] Non-Formulary Medication (Sumatriptan Succinate [Sumatriptan Succinate]) 100 mg PO Q2-4H PRN PRN Reason: Migraine Headache Non-Formulary Medication (Temazepam [Restoril]) 30 mg PO HS [facility] Ondansetron HCl (Zofran Inj) 4 mg IV.PUSH Q6H PRN PRN Reason: NAUSEA OR VOMITING Oxycodone/Acetaminophen (Percocet 10/325 Mg) 1 tab PO Q6H PRN PRN Reason: PAIN SCALE 6 TO 10 Oxycodone/Acetaminophen (Percocet 5/325 Mg) 1 tab PO Q6H PRN PRN Reason: PAIN SCALE 3 TO 5 Pantoprazole Sodium (Protonix) 40 mg PO BID [facility] Pharmacy Profile Note (Vancomycin Consult Pharmacy) 1 each OTHER UNSCH PRN PRN Reason: Pharmacy to dose Pregabalin (Lyrica) 100 mg PO BID [facility] Senna/Docusate Sodium (Mili-Colace) 1 tab PO BID [facility] Sennosides (Senokot) 17.2 mg PO Q12H PRN PRN Reason: Moderate Constipation Sodium Chloride (Ns Flush) 2 ml IV.FLUSH BID [facility] Sodium Chloride (Ns Flush) 2 ml IV.FLUSH PRN PRN PRN Reason: FLUSH AFTER USING IV ACCESS Sucralfate (Carafate) 1 gm PO Q6H [facility] Allergies Allergy/AdvReac Type Severity Reaction Status Date / Time sulfamethoxazole Allergy Mild Hives Verified 06/19/18 12:12 [From Bactrim] trimethoprim [From Bactrim] Allergy Mild Hives Verified 06/19/18 12:12 Home Medications Medication Instructions Recorded Confirmed Type Lexapro 10 mg PO DAILY 06/19/18 06/28/18 History aspirin 81 mg PO DAILY 06/19/18 06/28/18 History carbidopa-levodopa [Sinemet] 1 tab PO TID 06/19/18 06/28/18 History celecoxib [Celebrex] 200 mg PO BID 06/19/18 06/28/18 History diclofenac sodium 1 applicatio TOPICAL QID 06/19/18 06/28/18 History donepezil [Aricept] 10 mg PO QPM 06/19/18 06/28/18 History duloxetine [Cymbalta] 60 mg PO BID 06/19/18 06/28/18 History escitalopram oxalate [Lexapro] 10 mg PO DAILY 06/19/18 06/28/18 History esomeprazole magnesium [Nexium] 40 mg PO BID 06/19/18 06/28/18 History glipizide 5 mg PO BID 06/19/18 06/28/18 History linaclotide [Linzess] 145 mcg PO DAILY 06/19/18 06/28/18 History kgqlmp-ctkczckk-fxratwu [Zenpep] 1 cap PO 5 TIMES A DAY 06/19/18 06/28/18 History lisinopril 10 mg PO DAILY 06/19/18 06/28/18 History multivitamin 1 tab PO QAM 06/19/18 06/28/18 History pregabalin [Lyrica] 100 mg PO BID 06/19/18 06/28/18 History rosuvastatin [Crestor] 40 mg PO QPM 06/19/18 06/28/18 History sildenafil [Viagra] 100 mg PO DAILY PRN 06/19/18 06/28/18 History sucralfate [Carafate] 1 g PO Q6H 06/19/18 06/28/18 History sumatriptan succinate 100 mg PO Q2-4H PRN 06/19/18 06/28/18 History temazepam [Restoril] 30 mg PO HS 06/19/18 06/28/18 History Exam Vital signs: Vital Signs 06/28/18 12:46 06/28/18 13:21 06/28/18 13:22 Temperature 97.9 F Pulse Rate 75 70 72 Respiratory Rate 22 19 20 Blood Pressure Pulse Oximetry 91 L 06/28/18 13:23 06/28/18 13:24 06/28/18 14:05 Temperature Pulse Rate 75 68 Respiratory Rate 19 25 H Blood Pressure 122/57 L Pulse Oximetry 93 L 93 L 06/28/18 16:34 Temperature Pulse Rate 68 Respiratory Rate 18 Blood Pressure Pulse Oximetry 94 L Intake & Output 06/27/18 06/28/18 06/28/18 18:59 06:59 18:59 Weight 113.398 kg Narrative: GENERAL: Awake alert and oriented x3 talkative and cooperative-appears to be in mild to moderate distress SKIN: Warm and dry. Edema bilateral lower extremities HEAD: Atraumatic. Normocephalic. EYES: Pupils equal and round. No scleral icterus. No injection or drainage. EOMI ENT: No nasal bleeding or discharge. Mucous membranes pink and moist. Tongue is midline NECK: Trachea midline. No JVD. Supple CARDIOVASCULAR: Regular rate and rhythm. S1-S2 no S3 or S4 RESPIRATORY: No accessory muscle use. Breath sounds equal bilaterally. Coarse rhonchi and wheezes throughout all lung [place] GASTROINTESTINAL: Abdomen soft, non-tender, nondistended. Hepatic and splenic margins not palpable. Some abdominal distention MUSCULOSKELETAL: Extremities without clubbing, cyanosis. No obvious deformities. Positive edema bilateral lower extremities +2-3 bilateral lower extremities NEUROLOGICAL: Awake and alert. No obvious cranial nerve deficits. Motor grossly within normal limits. Five out of 5 muscle strength in the arms and legs. Normal speech. PSYCHIATRIC: Appropriate mood and affect; insight and judgment normal. Results - Labs CBC & Chem 7: 06/28/18 13:20 06/28/18 13:20 Labs: Short CBC 06/28/18 Range/Units 13:20 WBC 13.0 H (4.0-11.0) th/mm3 Hgb 13.2 (13.0-17.0) gm/dL Hct 39.8 (39.0-51.0) % Plt Count 155 (150-450) th/mm3 BMP 06/28/18 13:20 Sodium 143 Potassium 5.0 Chloride 110 H Carbon Dioxide 21.2 BUN 13 Creatinine 1.04 Calcium 7.6 L Cardiac Enzymes 06/28/18 06/28/18 Range/Units 13:20 13:20 Total Creatine Kinase 72 (39-308) U/L Troponin I Less than 0.02 L (0.02-0.05) ng/mL Liver Function 06/28/18 Range/Units 13:20 Total Bilirubin 0.4 (0.2-1.0) mg/dL AST 23 (15-37) U/L ALT 21 (12-78) U/L Alkaline Phosphatase 101 (45-117) U/L Albumin 3.0 L (3.4-5.0) g/dL - Imaging Impressions Chest X-Ray 06/28/18 13:11 CONCLUSION: Minimal platelike atelectasis in left lung base. Otherwise, no other focal or acute pulmonary infiltrates. Caprini VTE Risk Assessment Caprini VTE Risk Assessment: Moderate/High Risk (score >= 2) Caprini Risk Assessment Model: Point Value = 1 Point Value = 2 Point Value = 3 Point Value = 5 Age 41-60 Minor surgery BMI > 25 kg/m2 Swollen legs Varicose veins or History of unexplained or recurrent spontaneous Oral contraceptives or hormone replacement Sepsis (< 1 month) Serious lung disease, including pneumonia (< 1 month) Abnormal pulmonary function Acute myocardial infarction Congestive heart failure (< 1 month) History of inflammatory bowel disease Medical patient at bed rest Age 61-74 Arthroscopic surgery Major open surgery (> 45 min) Laparoscopic surgery (> 45 min) Malignancy Confined to bed (> 72 hours) Immobilizing plaster cast Central venous access Age >= 75 History of VTE Family history of VTE Factor V Leiden Prothrombin [id number] Lupus anticoagulant Anticardiolipin antibodies Elevated serum homocysteine Heparin-induced thrombocytopenia Other congenital or acquired thrombophilia Stroke (< 1 month) Elective arthroplasty Hip, pelvis, or leg fracture Acute spinal cord injury (< 1 month) Prophylaxis Regimen: Total Risk Factor Score Risk Level Prophylaxis Regimen 0-1 Low Early ambulation 2 Moderate Order ONE of the following: *Sequential Compression Device (SCD) *Heparin 5000 units SQ BID 3-4 Higher Order ONE of the following medications: *Heparin 5000 units SQ TID *Enoxaparin/Lovenox 40 mg SQ daily (WT < 150 kg, CrCl > 30 mL/min) *Enoxaparin/Lovenox 30 mg SQ daily (WT < 150 kg, CrCl > 10-29 mL/min) *Enoxaparin/Lovenox 30 mg SQ BID (WT < 150 kg, CrCl > 30 mL/min) AND/OR *Sequential Compression Device (SCD) 5 or more Highest Order ONE of the following medications: *Heparin 5000 units SQ TID (Preferred with Epidurals) *Enoxaparin/Lovenox 40 mg SQ daily (WT < 150 kg, CrCl > 30 mL/min) *Enoxaparin/Lovenox 30 mg SQ daily (WT < 150 kg, CrCl > 10-29 mL/min) *Enoxaparin/Lovenox 30 mg SQ BID (WT < 150 kg, CrCl > 30 mL/min) AND *Sequential Compression Device (SCD) Assessment and Plan - Plan Acute respiratory infection/respiratory failure Failed outpatient therapy Severe dyspnea with pneumonia/COPD History of Acinetobacter infection Possible cor pulmonale-history of echo with an EF of 65-70% in October--we will get a repeat echocardiogram Leukocytosis due to steroids We will continue on vancomycin and Zosyn and Levaquin. Await sputum Consult pulmonary Consult infectious disease Continue on steroids IV Mucinex Duo nebs Symbicort Will probably need bronchoscopy Continue on oxygen Diabetes continue on sliding scale coverage with Accu-Cheks before meals and at bedtime especially since he is on IV Solu-Medrol Continue on his home medications for the diabetes Hypertension resume home medications lisinopril Hyperlipidemia continue on his statin Crestor Parkinson's disease continue on his Sinemet Depression anxiety continue on his Lexapro and Aricept and Cymbalta Chronic pain continue on Lyrica and Cymbalta GI prophylaxis with Nexium twice daily and Carafate Chronic constipation treated with Linzess Continue on GI and DVT prophylaxis Continue on Lovenox We will get a.m. labs Code Status: Full code Discussed Condition With: RN and patient and family and emergency room physician Discharge Planning: Pending improvement and clearance by all
[2018-06-28] MEDS: Sucralfate 1 GM Tablet PO SCH (17:29)
[2018-06-28] MEDS: Enoxaparin Inj 40 MG/0.4 ML Syringe SQ SCH (17:30)
[2018-06-28] MEDS: Escitalopram 10 MG Tablet PO SCH (17:30)
[2018-06-28] MEDS: MethylPREDNISolone Sod Succinate Inj 40 MG/ML Vial IV.PUSH SCH (17:30)
[2018-06-28] MEDS: Morphine Inj 4 MG/ML Vial IV.PUSH PRN ×2 (17:32→21:36)
[2018-06-28] MEDS: Lipase/Protease/Amylase 24/76/120 DR Capsule PO SCH ×2 (17:32→21:43)
[2018-06-28] MEDS: Insulin NovoLOG Aspart Correctional Sugar Inj SQ SCH ×2 (17:38→20:59)
[2018-06-28] MEDS: Lisinopril 10 MG Tablet PO SCH (17:38)
[2018-06-28] MEDS: Piperacil/Tazo 3.375 GM Premix 50 ML IV.SIG SCH (17:54)
[2018-06-28] MEDS ORDERED: DICLOFENAC SODIUM TOPICAL SCH (18:00)
[2018-06-28] MEDS ORDERED: LIPASE PROTEASE AMYLASE PO SCH (18:00)
[2018-06-28 18:27] LABS: Creatine Kinase 47 U/L (39-308)
[2018-06-28 19:59] LABS: ABG Base Excess -1.2 mmol/L (-2-2); ABG PCO2 32 mmHg (38-42); ABG PO2 76 mmHg (61-120)
--- NOTE | 2018-06-28 20:00 | MB ---
cc: Melvin Moon MD, Steven M DO DATE: 06/28/2018 REQUESTING PHYSICIAN: Yoshi Ambrocio DO REASON FOR CONSULTATION: Shortness of breath. HISTORY OF PRESENT ILLNESS: Mr. Cano is a pleasant 78-year-old white male who has a history of hypertension, underlying COPD, spinal cord stimulator and Parkinson disease. The patient was complaining of shortness of breath. He recently went to [place]. He was admitted to [facility] on 06/19/2018. He stayed in the hospital for about 4-5 days. He had a workup done. He was treated for pneumonia. He had a CTA of the chest done at that time which showed no pulmonary embolism. It showed improving atelectasis at the bases. He went home. Today, he came to the office with complaints of increasing shortness of breath, orthopnea and PND. He can barely lie down. He did have some swelling in his legs. He did not have any fever or chills. No night sweats. No nausea or vomiting. The patient was sent back to the emergency room. He had a workup done. Again, chest x-ray was done which shows minimal plate-like atelectasis. His CBC showed WBC count 13,000, hemoglobin 13.2, hematocrit 39.8, MCV 90 and platelet count 155. PAST MEDICAL HISTORY: Significant for hypertension, COPD, Parkinson disease, spinal cord stimulator placement, history of pneumonia, monoclonal gammopathy, diabetes mellitus, underlying dementia, history of stroke. MEDICATIONS: He is currently taking albuterol nebulizer treatment, Creon, Lexapro 10 mg daily. SOCIAL HISTORY: He is . No history of smoking or alcohol abuse. FAMILY HISTORY: Noncontributory. REVIEW OF SYSTEMS: The patient feels short of breath even walking a few steps and has orthopnea and PND. No chest pain. No palpitations. No malignancy. PHYSICAL EXAMINATION: GENERAL: This is a well-developed, well-nourished male short of breath, not in any acute distress. VITAL SIGNS: Blood pressure 120/57, heart rate 60, respirations 25, temperature 98. HEENT: Pupils are equal and reactive to light. Oral mucosa and nasal mucosa are normal. NECK: Supple. No JVD noted. CHEST: He has coarse crackles. HEART: S1, S2 normal. ABDOMEN: Benign. EXTREMITIES: One plus pedal edema. IMPRESSION: 1. Worsening shortness of breath with coarse crackles and possible mucus impaction. However, his chest x-ray shows only mild atelectasis. 2. Possible congestive heart failure, but BNP is only 25. He has orthopnea and paroxysmal nocturnal dyspnea. His recent CT was negative. 3. Hypertension. 4. Chronic obstructive pulmonary disease. 5. Parkinson disease. PLAN: I discussed with the patient. We will continue his antibiotics. Antibiotic coverage was broadened to cover hospital-acquired pneumonia. I have encouraged Acapella, use of incentive spirometry and Mucinex twice a day. I will check his PFTs, blood gas and echocardiogram. Further treatment will depend upon course in the hospital. Thank you, Dr. Ambrocio, for this consult. MD MATTHEW Anderson/tanesha , 07:05 PM , 07:15 PM
[2018-06-28] MEDS: Temazepam 15 MG Capsule PO SCH (20:59)
[2018-06-28] MEDS: guaiFENesin 600 MG ER Tablet PO SCH (20:59)
[2018-06-28] MEDS: glipiZIDE 5 MG Tablet PO SCH (20:59)
[2018-06-28] MEDS: Duloxetine 60 MG DR Capsule PO SCH (21:00)
[2018-06-28] MEDS: Senna/Docusate Sodium 8.6/50 MG Tablet PO SCH (21:00)
[2018-06-28] MEDS: Celecoxib 200 MG Capsule PO SCH (21:36)
[2018-06-28] MEDS: Budesonide-Formoterol 160/4.5 MCG 6 GM Inhaler INH SCH (21:36)
[2018-06-28 22:39] LABS: Creatine Kinase 37 U/L (39-308)
[2018-06-29] MEDS: Piperacil/Tazo 3.375 GM Premix 50 ML IV.SIG SCH ×3 (00:22→17:27)
[2018-06-29] MEDS: MethylPREDNISolone Sod Succinate Inj 40 MG/ML Vial IV.PUSH SCH ×4 (00:22→17:28)
[2018-06-29] MEDS: Sucralfate 1 GM Tablet PO SCH ×4 (00:23→17:27)
[2018-06-29] MEDS: Morphine Inj 4 MG/ML Vial IV.PUSH PRN ×3 (01:36→12:26)
[2018-06-29] MEDS ORDERED: Vancomycin Inj 1,250 MG in Sodium Chlor 0.9% Inj 250 ML IV.SIG SCH (03:00)
[2018-06-29] MEDS: Insulin NovoLOG Aspart Correctional Sugar Inj SQ SCH ×5 (03:26→20:48)
[2018-06-29] MEDS: Lipase/Protease/Amylase 24/76/120 DR Capsule PO SCH ×5 (06:03→22:38)
[2018-06-29 06:24] LABS: Baso % (Auto) 0.3 % (0.0-2.0); Hematocrit 40.7 % (39.0-51.0); Hemoglobin 13.8 gm/dL (13.0-17.0); Lymph # (Auto) 0.5 th/mm3 (1.0-4.8); Lymph % (Auto) 4.9 % (9.0-44.0); Mean Corpuscular Hemoglobin 30.7 pg (27.0-34.0); Mean Corpuscular Volume 90.3 fL (80.0-100.0); Mean Platelet Volume 8.8 fL (7.0-11.0); Mono # (Auto) 0.2 th/mm3 (0.0-0.9); Mono % (Auto) 1.8 % (0.0-8.0); Neut # (Auto) 10.2 th/mm3 (1.8-7.7); Platelet Count 146 th/mm3 (150-450)
[2018-06-29 07:22] LABS: Alanine Aminotransferase 27 U/L (12-78); Albumin 3.3 g/dL (3.4-5.0); Alkaline Phosphatase 96 U/L (45-117); Anion Gap 10 meq/L (5-15); Aspartate Aminotransferase 11 U/L (15-37); Blood Urea Nitrogen 16 mg/dL (7-18); Calcium 8.1 mg/dL (8.5-10.1); Carbon Dioxide 25.3 meq/L (21.0-32.0); Chloride 101 meq/L (98-107); Free T4 (Free Thyroxine) 0.93 ng/dL (0.76-1.46); Glomerular Filtration Rate 59 mL/min (>89); Glucose,Random 237 mg/dL (74-106); Magnesium 1.9 mg/dL (1.5-2.5); Phosphorus 3.3 mg/dL (2.5-4.9); Potassium 4.2 meq/L (3.5-5.1); Sodium 136 meq/L (136-145); Thyroid Stimulating Hormone 0.218 uIU/mL (0.358-3.740); Total Protein 6.8 g/dL (6.4-8.2)
[2018-06-29] MEDS: Escitalopram 10 MG Tablet PO SCH (08:30)
[2018-06-29] MEDS: Duloxetine 60 MG DR Capsule PO SCH ×2 (08:30→20:54)
[2018-06-29] MEDS: guaiFENesin 600 MG ER Tablet PO SCH ×2 (08:30→20:50)
[2018-06-29] MEDS: Lisinopril 10 MG Tablet PO SCH (08:30)
[2018-06-29] MEDS: Senna/Docusate Sodium 8.6/50 MG Tablet PO SCH ×2 (08:30→20:51)
[2018-06-29] MEDS: glipiZIDE 5 MG Tablet PO SCH ×2 (08:30→20:51)
[2018-06-29] MEDS: Budesonide-Formoterol 160/4.5 MCG 6 GM Inhaler INH SCH ×2 (08:31→20:58)
[2018-06-29] MEDS: Celecoxib 200 MG Capsule PO SCH ×2 (10:23→20:51)
--- NOTE | 2018-06-29 13:51 | MB ---
cc: Mack Hodgson MD DATE: 06/29/2018 REQUESTING PHYSICIAN: Dr. Ambrocio REASON FOR CONSULTATION: History of MDRO Acinetobacter in 11/2017; now with worsening pneumonia and failed outpatient and hospital treatment. HISTORY OF PRESENT ILLNESS: This is a 78-year-old white male who presented to the emergency department on 06/19/2018 with chest pain. The patient was felt to have a COPD exacerbation. He was treated in the hospital and discharged on 06/22/2018 on inhalers and oral antibiotic. The patient states that after he went home, he was still having difficulty with breathing and was unable to sleep lying flat. He was given IV Levaquin in the hospital and discharged on p.o. Levaquin. Continued to have worsening shortness of breath. He presented to the pulmonary physician in followup yesterday and he was sent to the emergency department from the office and was admitted to the hospital for continued management. The patient states that he is now continuing to cough up thick green sputum. He has had cough, but was not bringing up much sputum previously. The patient notes that he did spent approximately 5 weeks in [place] before returning to [place] approximately 2 weeks ago and after he got to [place] he started feeling sick. He states that he was feeling well in [place] and was not having any difficulty breathing. He denies headache, nausea or vomiting, but states that he gets some chest pain which he thinks is related to coughing. His white count 12.1. Temperature maximum was 100.8 degrees today. The patient is receiving diuretics. His white blood cell count is 11.0 today; yesterdays white count was 15.0. He has been afebrile since admission. He states that he gets occasional chills. PAST MEDICAL HISTORY: Diabetes mellitus, hypertension, hyperlipidemia, monoclonal gammopathy, Parkinson's disease, chronic left shoulder pain, abscess of the gallbladder, anxiety disorder, CVA, history of bilateral knee replacement, cholecystectomy. ALLERGIES: SULFA, TRIMETHOPRIM. MEDICATIONS: 1. Vancomycin. 2. Piperacillin/tazobactam. 3. Levaquin. 4. Lyrica. 5. Carafate. 6. Imitrex. 7. Restoril. 8. Protonix. 9. Theragran. 10. Solu-Medrol. 11. Prinivil. 12. Insulin. 13. Lovenox. 14. Cymbalta. 15. Lexapro. 16. Glucotrol. 17. Celebrex. 18. Sinemet. 19. Lipitor. 20. Ecotrin. 21. Creon. SOCIAL HISTORY: No tobacco. The patient is a former smoker. No illicit drugs. No alcohol. FAMILY HISTORY: Noncontributory. REVIEW OF SYSTEMS: All systems have been reviewed and are negative, except for that mentioned in the history of present illness. PHYSICAL EXAMINATION: GENERAL: He is a moderately obese male is in no acute distress. He appears chronically ill. VITAL SIGNS: Temperature 97.3, BP 176/78, respirations 18, heart rate 70. HEENT: The head is atraumatic. Extraocular movements grossly intact. Pupils reactive to light. No icterus. Oropharynx moist, mucosa without lesions. NECK: Supple. No adenopathy. LUNGS: Bilateral rhonchi throughout. HEART: Regular S1 and S2. Irregular rate. No audible murmur. ABDOMEN: Bowel sounds present, obese, soft. No tenderness appreciated. RECTAL: Not performed. EXTREMITIES: 1+ pitting edema of the lower extremities. No clubbing or cyanosis. SKIN: No diffuse rash. NEUROLOGIC: No gross focal finding. PSYCHIATRIC: The patient is calm and cooperative. LABORATORY DATA: WBC 11.0, platelet count 146, hemoglobin 15.8, 93% neutrophils. Creatinine 1.20, BUN 16. Estimated GFR 59. Sodium 136, AST 11, ALT 27. Sputum culture pending. Blood culture pending. IMPRESSION: 1. Probable hospital-acquired pneumonia. The patient with a known history of resistant bacterial pneumonia in the past. 2. Orthopnea. 3. Leukocytosis. The patient admitted with elevated white blood cell count. At this point, it is difficult to determine whether all of the symptoms are due to pneumonia. However, it is possible the patient may have very significant pneumonia causing all of his symptoms. RECOMMENDATIONS: 1. Continue Piperacillin/tazobactam. 2. Discontinue Levaquin since I suspect that organism causing the problem is very likely to be resistant to Levaquin, which the patient was receiving for some days before admission. 3. Continue vancomycin. 4. Monitor sputum culture. 5. Monitor blood cultures. 6. Monitor clinical and respiratory status. Thank you for this consultation. I will monitor the patient's progress along with you and will make further recommendations upon followup. At this time, he appears acutely ill. MD ANGELIC Cao/elizabeth , 01:19 PM , 01:34 PM
--- NOTE | 2018-06-29 15:16 | P.PNIM ---
Subjective Interval history: Patient remains oxygen dependent. Persistent cough. No new complaints. Physical Exam Vital signs: Vital Signs 06/28/18 16:34 06/28/18 17:41 06/28/18 19:09 Temperature Pulse Rate 68 72 Respiratory Rate 18 16 16 Blood Pressure Pulse Oximetry 94 L 06/28/18 20:00 06/28/18 23:17 06/29/18 00:00 Temperature 97.3 F L 97.5 F L Pulse Rate 71 70 59 L Respiratory Rate 16 20 16 Blood Pressure 132/67 154/70 H Pulse Oximetry 97 96 97 06/29/18 03:08 06/29/18 04:00 06/29/18 05:00 Temperature 97.3 F L Pulse Rate 83 74 Respiratory Rate 17 16 16 Blood Pressure 149/70 H Pulse Oximetry 96 06/29/18 06:50 06/29/18 08:00 06/29/18 09:00 Temperature 98.0 F Pulse Rate 64 60 Respiratory Rate 17 19 Blood Pressure 144/69 H Pulse Oximetry 97 06/29/18 12:00 06/29/18 13:40 Temperature 97.3 F L Pulse Rate 70 127 H Respiratory Rate 18 Blood Pressure 176/78 H Pulse Oximetry 93 L Intake & Output 06/28/18 06/29/18 06/29/18 18:59 06:59 18:59 Intake Total 300 / 300 462.5 / 462.5 50 / 50 Balance 300 / 300 462.5 / 462.5 50 / 50 Weight 113.398 kg Intake: IV 300 / 300 462.5 / 462.5 50 / 50 Levaquin 750 mg Premix Inj 150 150 / 150 ML @ 100 mls/hr IV.SIG Q24H [facility] Rx#:[id number] Zosyn 3.375 GM Premix 50 ML @ 50 / 50 50 / 50 50 / 50 100 mls/hr IV.SIG Q8H [facility] Rx#: [id number] Vancomycin Inj 1,000 MG In NS 250 / 250 Inj 250 ML @ 250 mls/hr IV.SIG ONCE ONE Rx#:[id number] Vancomycin Inj 1,250 MG In NS 262.5 / 262.5 Inj 250 ML @ 250 mls/hr IV.SIG Q12H [facility] Rx#:[id number] Other: # Voids 2 Date of Last Bowel Movement 06/28/18 06/28/18 Narrative: GENERAL: NAD, A&Ox3 HEAD: Normocephalic. NECK: Supple, trachea midline. No lymphadenopathy. EYES: No scleral icterus. No injection or drainage. CARDIOVASCULAR: Regular rate and rhythm without murmurs, gallops, or rubs. RESPIRATORY: Breath sounds equal bilaterally. No accessory muscle use. Bilateral rhonchi, crackles, and wheezing. GASTROINTESTINAL: Abdomen soft, non-tender, nondistended. MUSCULOSKELETAL: No cyanosis, or edema. SKIN: Warm and dry. NEURO: No focal neurological deficits. Results - Labs CBC & Chem 7: 06/29/18 05:45 06/29/18 05:45 Laboratory Results - last 24 hr 06/28/18 06/28/18 06/28/18 16:12 17:34 17:34 WBC RBC Hgb Hct MCV MCH MCHC RDW Plt Count MPV Neut % (Auto) Lymph % (Auto) [place] % (Auto) Eos % (Auto) Baso % (Auto) Neut # (Auto) Lymph # (Auto) [place] # (Auto) Eos # (Auto) Baso # (Auto) WBC Differential Differential Comment Puncture Site Patient Temperature O2 Saturation ABG pH ABG pCO2 ABG pO2 ABG HCO3 ABG O2 Content ABG Base Excess ABG Methemoglobin Jose Test Hemoglobin Carboxyhemoglobin O2 Delivery Device Liter Flow Critical Value Sodium Potassium Chloride Carbon Dioxide Anion Gap BUN Creatinine Estimated GFR POC Glucose 253 H Random Glucose Lactic Acid 2.9 H Calcium Phosphorus Magnesium Total Bilirubin AST ALT Alkaline Phosphatase Total Creatine Kinase 47 Troponin I Less than 0.02 L Total Protein Albumin TSH Free T4 06/28/18 06/28/18 06/28/18 19:50 20:27 21:33 WBC RBC Hgb Hct MCV MCH MCHC RDW Plt Count MPV Neut % (Auto) Lymph % (Auto) [place] % (Auto) Eos % (Auto) Baso % (Auto) Neut # (Auto) Lymph # (Auto) [place] # (Auto) Eos # (Auto) Baso # (Auto) WBC Differential Differential Comment Puncture Site Right radial Patient Temperature 98.6 O2 Saturation 93 ABG pH 7.46 H ABG pCO2 32 L ABG pO2 76 ABG HCO3 22 ABG O2 Content 17.9 ABG Base Excess -1.2 ABG Methemoglobin 1.3 Jose Test Present Hemoglobin 13.7 Carboxyhemoglobin 1.3 O2 Delivery Device Nasal cannula Liter Flow 3.00 Critical Value No Sodium Potassium Chloride Carbon Dioxide Anion Gap BUN Creatinine Estimated GFR POC Glucose 288 H Random Glucose Lactic Acid Calcium Phosphorus Magnesium Total Bilirubin AST ALT Alkaline Phosphatase Total Creatine Kinase 37 L Troponin I Less than 0.02 L Total Protein Albumin TSH Free T4 06/29/18 06/29/18 06/29/18 03:19 05:45 05:45 WBC 11.0 RBC 4.50 Hgb 13.8 Hct 40.7 MCV 90.3 MCH 30.7 MCHC 34.0 RDW 18.0 H Plt Count 146 L MPV 8.8 Neut % (Auto) 93.0 H Lymph % (Auto) 4.9 L [place] % (Auto) 1.8 Eos % (Auto) 0.0 Baso % (Auto) 0.3 Neut # (Auto) 10.2 H Lymph # (Auto) 0.5 L [place] # (Auto) 0.2 Eos # (Auto) 0.0 Baso # (Auto) 0.0 WBC Differential . Differential Comment Auto diff final Puncture Site Patient Temperature O2 Saturation ABG pH ABG pCO2 ABG pO2 ABG HCO3 ABG O2 Content ABG Base Excess ABG Methemoglobin Jose Test Hemoglobin Carboxyhemoglobin O2 Delivery Device Liter Flow Critical Value Sodium 136 Potassium 4.2 D Chloride 101 D Carbon Dioxide 25.3 Anion Gap 10 BUN 16 Creatinine 1.20 Estimated GFR 59 L POC Glucose 261 H Random Glucose 237 H Lactic Acid Calcium 8.1 L Phosphorus 3.3 Magnesium 1.9 Total Bilirubin 0.4 AST 11 L ALT 27 Alkaline Phosphatase 96 Total Creatine Kinase Troponin I Total Protein 6.8 D Albumin 3.3 L TSH 0.218 L Free T4 0.93 06/29/18 06/29/18 07:35 12:13 WBC RBC Hgb Hct MCV MCH MCHC RDW Plt Count MPV Neut % (Auto) Lymph % (Auto) [place] % (Auto) Eos % (Auto) Baso % (Auto) Neut # (Auto) Lymph # (Auto) [place] # (Auto) Eos # (Auto) Baso # (Auto) WBC Differential Differential Comment Puncture Site Patient Temperature O2 Saturation ABG pH ABG pCO2 ABG pO2 ABG HCO3 ABG O2 Content ABG Base Excess ABG Methemoglobin Jose Test Hemoglobin Carboxyhemoglobin O2 Delivery Device Liter Flow Critical Value Sodium Potassium Chloride Carbon Dioxide Anion Gap BUN Creatinine Estimated GFR POC Glucose 196 H 226 H Random Glucose Lactic Acid Calcium Phosphorus Magnesium Total Bilirubin AST ALT Alkaline Phosphatase Total Creatine Kinase Troponin I Total Protein Albumin TSH Free T4 Microbiology 06/28/18 14:14 Sputum - Expectorated Sputum Gram Stain - Final 06/28/18 14:14 Sputum - Expectorated Sputum Sputum Culture - Preliminary Heavy growth normal respiratory carson at 24 hours 06/28/18 13:20 Blood - Peripheral Aerobic Blood Culture - Preliminary No growth in 1 day 06/28/18 13:20 Blood - Peripheral Anaerobic Blood Culture - Preliminary No growth in 1 day 06/28/18 13:20 Blood - Peripheral Aerobic Blood Culture - Preliminary No growth in 1 day 06/28/18 13:20 Blood - Peripheral Anaerobic Blood Culture - Preliminary No growth in 1 day Assessment and Plan - Plan 78-year-old male admitted with bilateral pneumonia and respiratory failure Acute respiratory infection Community-acquired pneumonia respiratory failure Failed outpatient therapy History of Acinetobacter infection Continue vancomycin Continue Zosyn Levaquin discontinued ID following Pulmonology following Continue steroids Continue Mucinex Continue duo nebs Symbicort Supplemental oxygen Possible cor pulmonale Echocardiogram pending Diabetes mellitus type 2 Follow blood sugars Insulin sliding scale Diabetic diet Hypertension Continue baseline treatment Follow blood pressures Adjust treatments as needed Hyperlipidemia Continue present treatment Follow as an outpatient Parkinson's disease continue Sinemet Depression anxiety continue Lexapro and Aricept and Cymbalta Chronic pain continue Lyrica and Cymbalta GI prophylaxis Nexium twice daily and Carafate Chronic constipation Continue Linzess DVT prophylaxis Lovenox
[2018-06-29 16:12] LABS: Hemoglobin A1c 7.8 % (4.3-6.0)
[2018-06-29] MEDS: Enoxaparin Inj 40 MG/0.4 ML Syringe SQ SCH (17:27)
[2018-06-29] MEDS: Vancomycin Inj 1,750 MG in Sodium Chlor 0.9% Inj 500 ML IV.SIG SCH (18:17)
--- NOTE | 2018-06-29 18:44 | ECHRPT ---
Indication: HYPERTENSIVE HEART DISEASE CONCLUSIONS The left ventricular systolic function is normal with an estimated ejection fraction in the range of 55-60%. BP: / HR: Rhythm: Sinus MEASUREMENTS (Male / Female) Normal Values Technical Quality:Fair 2D ECHO LV Diastolic Diameter PLAX 3.8 cm 4.2 - 5.9 / 3.9 - 5.3 cm IVS Diastolic Thickness 1.0 cm 0.6 - 1.0 / 0.6 - 0.9 cm LVPW Diastolic Thickness 1.0 cm 0.6 - 1.0 / 0.6 - 0.9 cm LV Relative Wall Thickness 0.5 RV Internal Dim ED PLAX 2.5 cm LVOT Diameter 2.3 cm Aortic Root Diameter 4.0 cm LA Systolic Diameter LX 2.8 cm 3.0 - 4.0 / 2.7 - 3.8 cm M-MODE AV Cusp Separation MM 2.3 cm DOPPLER AV Peak Velocity 120.0 cm/s AV Peak Gradient 5.8 mmHg AV Mean Gradient 3.0 mmHg AV Velocity Time Integral 25.0 cm LVOT Peak Velocity 93.2 cm/s LVOT Peak Gradient 3.5 mmHg LVOT Velocity Time Integral 22.5 cm AV Area Cont Eq vti 3.7 cm AV Area Cont Eq pk 3.2 cm Mitral E Point Velocity 75.5 cm/s Mitral A Point Velocity 86.9 cm/s Mitral E to A Ratio 0.9 LV E' Lateral Velocity 8.8 cm/s Mitral E to LV E' Lateral Ratio 8.6 LV E' Septal Velocity 6.8 cm/s Mitral E to LV E' Septal Ratio 11.1 TR Peak Velocity 160.0 cm/s TR Peak Gradient 10.2 mmHg PV Peak Velocity 58.7 cm/s PV Peak Gradient 1.4 mmHg FINDINGS LEFT VENTRICLE Normal left ventricular size. Wall thickness is measured at the upper limits of normal. The left ventricular systolic function is normal with an estimated ejection fraction in the range of 55-60%. RIGHT VENTRICLE Normal right ventricular size and systolic function. LEFT ATRIUM The left atrial size is normal. RIGHT ATRIUM The right atrial size is normal. ATRIAL SEPTUM Normal atrial septal thickness AORTA The aortic root and proximal ascending aorta are normal in size on limited imaging. MITRAL VALVE Structurally normal mitral valve. No mitral valve stenosis or regurgitation. AORTIC VALVE Trileaflet aortic valve. No aortic valve stenosis or regurgitation. TRICUSPID VALVE Structurally normal tricuspid valve. No tricuspid valve stenosis or regurgitation. PULMONARY VALVE The pulmonary valve is not well visualized. VESSELS The inferior vena cava was not well visualized. PERICARDIUM No pericardial effusion. Mikie Gomez DO (Electronically Signed) Final Date:29 June 2018 18:43
--- NOTE | 2018-06-29 18:44 | ECG ---
Date Performed: 06/28/2018 Time Performed: 12:59:06 PTAGE: 78 years EKG: ECTOPIC ATRIAL RHYTHM WITH OCCASIONAL VENTRICULAR PREMATURE COMPLEXES WITH OCCASIONAL SUPRA VENTRICULAR PREMATURE COMPLEXES PATTERN CONSISTENT WITH PULMONARY DISEASE INCOMPLETE RIGHT BUNDLE BRA NCH BLOCK LEFT ANTERIOR FASCICULAR BLOCK ABNORMAL ECG INTERPRETATION BASED ON A DEFAULT AGE OF 42 YEA RS PREVIOUS TRACING : 06/19/2018 12.19 DOCTOR: Marcos Ramsey Interpretating Date/Time 06/29/2018 18:42:36
--- NOTE | 2018-06-29 20:15 | P.PNPL ---
Subjective Interval history: 78 YOWM with SOB,Pn,parkinson disease Feels very congested can not bring up sp no Fever Physical Exam Vital signs: Vital Signs 06/28/18 23:17 06/29/18 00:00 06/29/18 03:08 Temperature 97.5 F L Pulse Rate 70 59 L 83 Respiratory Rate 20 16 17 Blood Pressure 154/70 H Pulse Oximetry 96 97 06/29/18 04:00 06/29/18 05:00 06/29/18 06:50 Temperature 97.3 F L Pulse Rate 74 Respiratory Rate 16 16 17 Blood Pressure 149/70 H Pulse Oximetry 96 06/29/18 08:00 06/29/18 09:00 06/29/18 12:00 Temperature 98.0 F 97.3 F L Pulse Rate 64 60 70 Respiratory Rate 19 18 Blood Pressure 144/69 H 176/78 H Pulse Oximetry 97 93 L 06/29/18 13:40 06/29/18 15:41 06/29/18 16:00 Temperature 97.8 F Pulse Rate 127 H 67 66 Respiratory Rate 16 18 Blood Pressure 141/66 H Pulse Oximetry 93 L 06/29/18 18:12 Temperature Pulse Rate 82 Respiratory Rate Blood Pressure Pulse Oximetry Intake & Output 06/29/18 06/29/18 06/30/18 06:59 18:59 06:59 Intake Total 462.5 / 462.5 1060 / 1060 Balance 462.5 / 462.5 1060 / 1060 Intake: IV 462.5 / 462.5 100 / 100 Levaquin 750 mg Premix Inj 150 150 / 150 ML @ 100 mls/hr IV.SIG Q24H [facility] Rx#:[id number] Zosyn 3.375 GM Premix 50 ML @ 50 / 50 100 / 100 100 mls/hr IV.SIG Q8H [facility] Rx#: [id number] Vancomycin Inj 1,250 MG In NS 262.5 / 262.5 Inj 250 ML @ 250 mls/hr IV.SIG Q12H [facility] Rx#:[id number] Oral 960 / 960 Other: # Voids 2 3 Date of Last Bowel Movement 06/28/18 GENERAL: WBWn Mild sob SKIN: Warm and dry. HEAD: Normocephalic. EYES: No scleral icterus. No injection or drainage. NECK: Supple, trachea midline. No JVD or lymphadenopathy. CARDIOVASCULAR: Regular rate and rhythm without murmurs, gallops, or rubs. RESPIRATORY: Breath sounds equal bilaterally. No accessory muscle use. GASTROINTESTINAL: Abdomen soft, non-tender, nondistended. MUSCULOSKELETAL: No cyanosis, or edema. BACK: Nontender without obvious deformity. No CVA tenderness. Assessment and Plan - Plan IMPRESSION: 1. Worsening shortness of breath with coarse crackles and possible mucus impaction. However, his chest x-ray shows only mild atelectasis. 2. Possible congestive heart failure, but BNP is only 25. He has orthopnea and paroxysmal nocturnal dyspnea. His recent CT was negative. 3. Hypertension. 4. Chronic obstructive pulmonary disease. 5. Parkinson disease. PLAN: Cont Abx ID following Aerosol nebs Use Acapella Pt very congested, not able to clear airways Will need bronch Pt explained benefits and risks including risk of aneasthesia, arrythmias, hypoxia He understands and wants to proceed Will schedule for tommorrow
[2018-06-29 22:28] LABS: INR 1.1 Ratio; Prothrombin Time 10.9 sec (9.8-11.6)
[2018-06-29] MEDS: Temazepam 15 MG Capsule PO SCH (22:39)
[2018-06-30] MEDS: Sucralfate 1 GM Tablet PO SCH ×4 (00:19→18:30)
[2018-06-30] MEDS: MethylPREDNISolone Sod Succinate Inj 40 MG/ML Vial IV.PUSH SCH ×4 (00:22→18:00)
[2018-06-30] MEDS: Piperacil/Tazo 3.375 GM Premix 50 ML IV.SIG SCH ×4 (00:31→16:35)
[2018-06-30] MEDS: Insulin NovoLOG Aspart Correctional Sugar Inj SQ SCH ×5 (03:40→20:50)
[2018-06-30] MEDS: Lipase/Protease/Amylase 24/76/120 DR Capsule PO SCH ×5 (05:56→21:37)
[2018-06-30] MEDS ORDERED: Metoprolol Tartrate 25 MG Tablet PO ONE (06:42)
[2018-06-30] MEDS ORDERED: Chlorhexidine Gluconate 2% 1 Pack (2 Cloths) TOPICAL ONE (06:42)
[2018-06-30] MEDS ORDERED: Sodium Chlor 0.9% Inj 500 ML IV.SIG SCH (07:00)
[2018-06-30] MEDS: Duloxetine 60 MG DR Capsule PO SCH ×2 (09:20→20:50)
[2018-06-30] MEDS: guaiFENesin 600 MG ER Tablet PO SCH ×2 (09:21→20:49)
[2018-06-30] MEDS: Senna/Docusate Sodium 8.6/50 MG Tablet PO SCH ×2 (09:21→20:50)
[2018-06-30] MEDS: Escitalopram 10 MG Tablet PO SCH (09:21)
[2018-06-30] MEDS: Celecoxib 200 MG Capsule PO SCH ×2 (09:28→20:50)
[2018-06-30] MEDS: Lisinopril 10 MG Tablet PO SCH (09:28)
[2018-06-30] MEDS: Insulin Detemir Inj 1,000 UNIT/10 ML Vial SQ SCH (11:00)
[2018-06-30] MEDS: Budesonide-Formoterol 160/4.5 MCG 6 GM Inhaler INH SCH ×2 (11:12→20:51)
[2018-06-30] MEDS: Vancomycin Inj 1,750 MG in Sodium Chlor 0.9% Inj 500 ML IV.SIG SCH (13:16)
--- NOTE | 2018-06-30 14:00 | P.PNIM ---
Subjective Interval history: Blood sugars are elevated this morning, likely secondary to steroids. Plan for bronchoscopy today. Respiratory status is about what it was yesterday with only minimal improvements. Physical Exam Vital signs: Vital Signs 06/29/18 15:41 06/29/18 16:00 06/29/18 18:12 Temperature 97.8 F Pulse Rate 67 66 82 Respiratory Rate 16 18 Blood Pressure 141/66 H Pulse Oximetry 93 L 06/29/18 20:00 06/29/18 20:28 06/29/18 20:37 Temperature 97.7 F Pulse Rate 73 73 Respiratory Rate Blood Pressure 122/58 L Pulse Oximetry 93 L 93 L 06/29/18 23:51 06/30/18 00:00 06/30/18 00:15 Temperature 97.6 F Pulse Rate 76 65 68 Respiratory Rate 16 20 Blood Pressure 131/70 Pulse Oximetry 93 L 06/30/18 03:36 06/30/18 04:00 06/30/18 04:15 Temperature 97.1 F L Pulse Rate 66 65 64 Respiratory Rate 16 20 Blood Pressure 138/70 Pulse Oximetry 90 L 06/30/18 08:00 06/30/18 08:14 06/30/18 09:00 Temperature 97.2 F L Pulse Rate 75 78 91 H Respiratory Rate 16 16 Blood Pressure 149/72 H Pulse Oximetry 96 92 L 06/30/18 12:00 06/30/18 12:44 Temperature 97.3 F L Pulse Rate 67 64 Respiratory Rate 16 16 Blood Pressure 157/74 H Pulse Oximetry 94 L Intake & Output 06/29/18 06/30/18 06/30/18 18:59 06:59 18:59 Intake Total 1060 / 1060 1047.5 / 1047.5 Output Total 800 / 800 Balance 1060 / 1060 247.5 / 247.5 Intake: IV 100 / 100 567.5 / 567.5 Zosyn 3.375 GM Premix 50 ML @ 100 / 100 50 / 50 100 mls/hr IV.SIG Q8H [facility] Rx#: [id number] Vancomycin Inj 1,750 MG In NS 517.5 / 517.5 Inj 500 ML @ 250 mls/hr IV.SIG Q18H [facility] Rx#:[id number] Oral 960 / 960 480 / 480 Output: Urine 800 / 800 Other: # Voids 3 2 Date of Last Bowel Movement 06/28/18 Narrative: GENERAL: NAD, A&Ox3 HEAD: Normocephalic. NECK: Supple, trachea midline. No lymphadenopathy. EYES: No scleral icterus. No injection or drainage. CARDIOVASCULAR: Regular rate and rhythm without murmurs, gallops, or rubs. RESPIRATORY: Breath sounds equal bilaterally. No accessory muscle use. Bilateral rhonchi, crackles, and wheezing. GASTROINTESTINAL: Abdomen soft, non-tender, nondistended. MUSCULOSKELETAL: No cyanosis, or edema. SKIN: Warm and dry. NEURO: No focal neurological deficits. Results - Labs CBC & Chem 7: 06/29/18 05:45 06/29/18 05:45 Laboratory Results - last 24 hr 06/29/18 06/29/18 06/29/18 05:45 16:33 20:38 PT INR APTT POC Glucose 234 H 221 H Hemoglobin A1c 7.8 H 06/29/18 06/30/18 06/30/18 21:27 03:25 10:02 PT 10.9 INR 1.1 APTT 27.0 POC Glucose 243 H 251 H Hemoglobin A1c 06/30/18 13:04 PT INR APTT POC Glucose 208 H Hemoglobin A1c Microbiology 06/28/18 14:14 Sputum - Expectorated Sputum Gram Stain - Final 06/28/18 14:14 Sputum - Expectorated Sputum Sputum Culture - Final Heavy growth normal respiratory carson 06/28/18 13:20 Blood - Peripheral Aerobic Blood Culture - Preliminary No growth in 2 days 06/28/18 13:20 Blood - Peripheral Anaerobic Blood Culture - Preliminary No growth in 2 days 06/28/18 13:20 Blood - Peripheral Aerobic Blood Culture - Preliminary No growth in 2 days 06/28/18 13:20 Blood - Peripheral Anaerobic Blood Culture - Preliminary No growth in 2 days Assessment and Plan - Plan 78-year-old male admitted with bilateral pneumonia and respiratory failure Bronchoscopy planned for today. Long-acting insulin added. Glipizide held. Continue to monitor blood sugars. Continue to monitor respiratory status. Acute respiratory infection Community-acquired pneumonia respiratory failure Failed outpatient therapy History of Acinetobacter infection Continue vancomycin Continue Zosyn Levaquin discontinued ID following Pulmonology following Continue steroids Continue Mucinex Continue duo nebs Symbicort Supplemental oxygen Possible cor pulmonale Echocardiogram pending Diabetes mellitus type 2 Follow blood sugars Insulin sliding scale Diabetic diet Hypertension Continue baseline treatment Follow blood pressures Adjust treatments as needed Hyperlipidemia Continue present treatment Follow as an outpatient Parkinson's disease continue Sinemet Depression anxiety continue Lexapro and Aricept and Cymbalta Chronic pain continue Lyrica and Cymbalta GI prophylaxis Nexium twice daily and Carafate Chronic constipation Continue Linzess DVT prophylaxis Lovenox
[2018-06-30] MEDS ORDERED: Pharmacy Ordered Lab Info OTHER ONE (14:45)
[2018-06-30] MEDS ORDERED: Sugammadex Inj 200 MG/2 ML Vial IV.PUSH ONE (15:00)
[2018-06-30] MEDS ORDERED: MethylPREDNISolone Sod Succinate Inj 125 MG/2 ML Vial ONE (15:00)
[2018-06-30] MEDS ORDERED: fentaNYL Citrate Inj 100 MCG/2 ML Ampul ONE (15:55)
--- NOTE | 2018-06-30 16:23 | XR ---
EXAM DATE: 06/30/2018 3:32 PM EDT AGE/SEX: 78 years / Male INDICATIONS: Post bronchoscopy. CLINICAL DATA: This is the patient's initial encounter. Patient reports that signs and symptoms have been present for 1 day and indicates a pain score of 0/10. MEDICAL/SURGICAL HISTORY: Cardiovascular disease. Diabetes mellitus type II. Carotid endartere ctomy. back surgery COMPARISON: [facility], CHEST 1V SINGLE AP, 06/28/2018. . FINDINGS: Airspace consolidation at the left lung base with volume loss. Minimal airspace disease at the right lung base. No significant pneumothorax. Cardiomegaly saw contours are stable given differences in donna hnique. Remainder of the exam is unchanged. CONCLUSION: 1. No pneumothorax following bronchoscopy. 2. Right lateral lower lung zone airspace consolidation, left > right, presumably reflecting atelect asis. Electronically signed by: Chandrakant Ortega MD 06/30/2018 4:22 PM EDT
--- NOTE | 2018-06-30 16:27 | MP ---
cc: Melvin Moon MD DATE OF OPERATION: 06/30/2018 PROCEDURE: Bronchoscopy. PREOPERATIVE DIAGNOSIS: Shortness of breath. POSTOPERATIVE DIAGNOSIS: Bilateral mucus plugging. DESCRIPTION OF PROCEDURE: Informed consent was obtained from the patient, procedure and the complications, including complication of anesthesia, pneumothorax requiring chest tube, bleeding complication, injury to the blood vessel, lungs, nerves, arrhythmia, hypoxia were explained, and he consented for the procedure. PROCEDURE IN DETAIL: The patient was brought to endoscopy suite and general anesthesia and an endotracheal tube was placed by the anesthesiologist. Bronchoscopy was done through endotracheal tube. There was lot of thick mucus at the end of the endotracheal tube, which was suctioned. He has significant tracheobronchomalacia, scope was advanced to the right lung where a lot of thick mucus plugs were removed. After multiple washes, all subsegments were cleaned, mild erythema, no endobronchial lesion was seen. Then, bronchoscope was advanced to the left lung. Again, tracheobronchomalacia was seen and a lot of mucus plugs were removed. After removing all mucus plugs, airway was inspected, again, no endobronchial lesion seen. He tolerated the procedure well. Bronchial washings sent for routine culture and a fungal culture. Post-procedure chest x-ray is ordered. MD MATTHEW Anderson/malathi , 03:34 PM , 03:42 PM
--- NOTE | 2018-06-30 16:35 | P.PNPL ---
Subjective Interval history: 78 YOWM with SOB,Pn,parkinson disease Had Bronch, lots of mucous plugs suctioned no Fever Physical Exam Vital signs: Vital Signs 06/29/18 18:12 06/29/18 20:00 06/29/18 20:28 Temperature 97.7 F Pulse Rate 82 73 Respiratory Rate Blood Pressure 122/58 L Pulse Oximetry 93 L 93 L 06/29/18 20:37 06/29/18 23:51 06/30/18 00:00 Temperature 97.6 F Pulse Rate 73 76 65 Respiratory Rate 16 20 Blood Pressure 131/70 Pulse Oximetry 93 L 06/30/18 00:15 06/30/18 03:36 06/30/18 04:00 Temperature 97.1 F L Pulse Rate 68 66 65 Respiratory Rate 16 20 Blood Pressure 138/70 Pulse Oximetry 90 L 06/30/18 04:15 06/30/18 08:00 06/30/18 08:14 Temperature 97.2 F L Pulse Rate 64 75 78 Respiratory Rate 16 16 Blood Pressure 149/72 H Pulse Oximetry 96 92 L 06/30/18 09:00 06/30/18 12:00 06/30/18 12:44 Temperature 97.3 F L Pulse Rate 91 H 99 H 64 Respiratory Rate 16 16 Blood Pressure 157/74 H Pulse Oximetry 94 L 06/30/18 14:42 06/30/18 15:46 06/30/18 15:50 Temperature 97.5 F L 97.4 F L Pulse Rate 80 78 71 Respiratory Rate 18 18 25 H Blood Pressure 107/63 149/71 H Pulse Oximetry 93 L 97 06/30/18 16:00 06/30/18 16:15 06/30/18 16:26 Temperature Pulse Rate 67 63 Respiratory Rate 20 14 Blood Pressure 144/70 H 144/72 H Pulse Oximetry 96 95 95 Intake & Output 06/29/18 06/30/18 06/30/18 18:59 06:59 18:59 Intake Total 1060 / 1060 1047.5 / 1047.5 Output Total 800 / 800 Balance 1060 / 1060 247.5 / 247.5 Intake: IV 100 / 100 567.5 / 567.5 Zosyn 3.375 GM Premix 50 ML @ 100 / 100 50 / 50 100 mls/hr IV.SIG Q8H [facility] Rx#: [id number] Vancomycin Inj 1,750 MG In NS 517.5 / 517.5 Inj 500 ML @ 250 mls/hr IV.SIG Q18H [facility] Rx#:[id number] Oral 960 / 960 480 / 480 Output: Urine 800 / 800 Other: # Voids 3 2 Date of Last Bowel Movement 06/28/18 GENERAL: WBWN,NAD SKIN: Warm and dry. HEAD: Normocephalic. EYES: No scleral icterus. No injection or drainage. NECK: Supple, trachea midline. No JVD or lymphadenopathy. CARDIOVASCULAR: Regular rate and rhythm without murmurs, gallops, or rubs. RESPIRATORY: Breath sounds equal bilaterally. No accessory muscle use. GASTROINTESTINAL: Abdomen soft, non-tender, nondistended. MUSCULOSKELETAL: No cyanosis, or edema. BACK: Nontender without obvious deformity. No CVA tenderness. Assessment and Plan - Plan IMPRESSION: 1. Worsening shortness of breath with coarse crackles and possible mucus impaction. However, his chest x-ray shows only mild atelectasis. 2. Possible congestive heart failure, but BNP is only 25. He has orthopnea and paroxysmal nocturnal dyspnea. His recent CT was negative. 3. Hypertension. 4. Chronic obstructive pulmonary disease. 5. Parkinson disease. PLAN: Cont Abx ID following Aerosol nebs Use Reyespebj DW Checl BAL results Add Mucomyst nebs
[2018-06-30] MEDS: Enoxaparin Inj 40 MG/0.4 ML Syringe SQ SCH (17:30)
[2018-06-30] MEDS: Temazepam 15 MG Capsule PO SCH (20:48)
[2018-07-01] MEDS: Piperacil/Tazo 3.375 GM Premix 50 ML IV.SIG SCH ×2 (01:09→08:40)
[2018-07-01] MEDS: MethylPREDNISolone Sod Succinate Inj 40 MG/ML Vial IV.PUSH SCH ×5 (01:10→23:26)
[2018-07-01] MEDS: Sucralfate 1 GM Tablet PO SCH ×5 (01:10→23:26)
[2018-07-01] MEDS: Insulin NovoLOG Aspart Correctional Sugar Inj SQ SCH ×5 (03:16→21:45)
[2018-07-01] MEDS: Lipase/Protease/Amylase 24/76/120 DR Capsule PO SCH ×5 (05:32→21:44)
[2018-07-01] MEDS: Vancomycin Inj 1,750 MG in Sodium Chlor 0.9% Inj 500 ML IV.SIG SCH ×2 (05:32→23:27)
[2018-07-01] MEDS ORDERED: Pharmacy Ordered Lab Info OTHER ONE (05:45)
[2018-07-01 06:51] LABS: Baso % (Auto) 0.1 % (0.0-2.0); Hematocrit 40.2 % (39.0-51.0); Hemoglobin 13.3 gm/dL (13.0-17.0); Lymph # (Auto) 0.4 th/mm3 (1.0-4.8); Lymph % (Auto) 2.2 % (9.0-44.0); Mean Corpuscular HGB Conc 33.1 % (32.0-36.0); Mean Corpuscular Volume 90.6 fL (80.0-100.0); Mono # (Auto) 0.7 th/mm3 (0.0-0.9); Neut % (Auto) 93.7 % (16.0-70.0); Platelet Count 149 th/mm3 (150-450); Red Blood Count 4.43 mil/mm3 (4.50-5.90); Red Cell Distribution Width 18.3 % (11.6-17.2); White Blood Count 18.1 th/mm3 (4.0-11.0)
[2018-07-01 07:22] LABS: Albumin 2.9 g/dL (3.4-5.0); Anion Gap 9 meq/L (5-15); Aspartate Aminotransferase 11 U/L (15-37); Blood Urea Nitrogen 25 mg/dL (7-18); Calcium 7.7 mg/dL (8.5-10.1); Carbon Dioxide 26.3 meq/L (21.0-32.0); Chloride 104 meq/L (98-107); Glomerular Filtration Rate 62 mL/min (>89); Glucose,Random 228 mg/dL (74-106); Potassium 4.3 meq/L (3.5-5.1); Sodium 139 meq/L (136-145)
[2018-07-01 07:25] LABS: Alanine Aminotransferase 23 U/L (12-78); Alkaline Phosphatase 84 U/L (45-117); Vancomycin,Trough 15.2 mcg/mL (5.0-10.0)
[2018-07-01] MEDS: Senna/Docusate Sodium 8.6/50 MG Tablet PO SCH ×2 (08:40→21:41)
[2018-07-01] MEDS: Celecoxib 200 MG Capsule PO SCH ×2 (08:40→21:42)
[2018-07-01] MEDS: Duloxetine 60 MG DR Capsule PO SCH ×2 (08:40→21:42)
[2018-07-01] MEDS: guaiFENesin 600 MG ER Tablet PO SCH ×2 (08:40→21:42)
[2018-07-01] MEDS: Escitalopram 10 MG Tablet PO SCH (08:40)
[2018-07-01] MEDS: Insulin Detemir Inj 1,000 UNIT/10 ML Vial SQ SCH (08:41)
[2018-07-01] MEDS: Lisinopril 10 MG Tablet PO SCH (08:44)
--- NOTE | 2018-07-01 11:37 | P.PNPL ---
Subjective Interval history: 78 YOWM with SOB,Pn,parkinson disease Had Bronch, lots of mucous plugs suctioned no Fever Breathing little better Ambulates has wheezing Physical Exam Vital signs: Vital Signs 06/30/18 12:00 06/30/18 12:44 06/30/18 14:42 Temperature 97.3 F L 97.5 F L Pulse Rate 99 H 64 80 Respiratory Rate 16 16 18 Blood Pressure 157/74 H 107/63 Pulse Oximetry 94 L 93 L 06/30/18 15:46 06/30/18 15:50 06/30/18 16:00 Temperature 97.4 F L Pulse Rate 78 71 67 Respiratory Rate 18 25 H 20 Blood Pressure 149/71 H 144/70 H Pulse Oximetry 97 96 06/30/18 16:15 06/30/18 16:26 06/30/18 16:30 Temperature Pulse Rate 63 67 Respiratory Rate 14 16 Blood Pressure 144/72 H 150/71 H Pulse Oximetry 95 95 94 L 06/30/18 16:45 06/30/18 20:00 06/30/18 20:35 Temperature 97.6 F 97.2 F L Pulse Rate 72 68 73 Respiratory Rate 19 18 22 Blood Pressure 146/69 H 148/73 H Pulse Oximetry 95 95 94 L 06/30/18 21:17 06/30/18 23:24 07/01/18 00:00 Temperature 97.6 F Pulse Rate 76 79 72 Respiratory Rate 21 19 18 Blood Pressure 115/59 L Pulse Oximetry 93 L 93 L 07/01/18 04:00 07/01/18 04:11 07/01/18 04:12 Temperature 98.1 F Pulse Rate 65 91 H Respiratory Rate 18 18 Blood Pressure 130/62 Pulse Oximetry 95 94 L 07/01/18 08:00 07/01/18 08:31 Temperature 97.3 F L Pulse Rate 71 78 Respiratory Rate 20 18 Blood Pressure 147/74 H Pulse Oximetry 94 L Intake & Output 06/30/18 07/01/18 07/01/18 18:59 06:59 18:59 Intake Total 1017.5 / 1017.5 50 / 50 567.5 / 567.5 Balance 1017.5 / 1017.5 50 / 50 567.5 / 567.5 Weight 113.398 kg Intake: IV 567.5 / 567.5 50 / 50 567.5 / 567.5 Zosyn 3.375 GM Premix 50 ML @ 50 / 50 50 / 50 50 / 50 100 mls/hr IV.SIG Q8H [facility] Rx#: [id number] Vancomycin Inj 1,750 MG In NS 517.5 / 517.5 517.5 / 517.5 Inj 500 ML @ 250 mls/hr IV.SIG Q18H [facility] Rx#:[id number] Oral 450 / 450 Other: # Voids 3 2 Date of Last Bowel Movement 06/28/18 06/29/18 06/29/18 GENERAL: Exp rhonchi SKIN: Warm and dry. HEAD: Normocephalic. EYES: No scleral icterus. No injection or drainage. NECK: Supple, trachea midline. No JVD or lymphadenopathy. CARDIOVASCULAR: Regular rate and rhythm without murmurs, gallops, or rubs. RESPIRATORY: Breath sounds equal bilaterally. No accessory muscle use. GASTROINTESTINAL: Abdomen soft, non-tender, nondistended. MUSCULOSKELETAL: No cyanosis, or edema. BACK: Nontender without obvious deformity. No CVA tenderness. Assessment and Plan - Plan IMPRESSION: 1. Worsening shortness of breath with coarse crackles and possible mucus impaction. However, his chest x-ray shows only mild atelectasis. 2. Possible congestive heart failure, but BNP is only 25. He has orthopnea and paroxysmal nocturnal dyspnea. His recent CT was negative. 3. Hypertension. 4. Chronic obstructive pulmonary disease. 5. Parkinson disease. PLAN: Cont Abx ID following Aerosol nebs Use Acapella DW Mucomyst nebs Check BAL results and adjust abx DW pt at BS
--- NOTE | 2018-07-01 13:11 | P.PNID ---
Subjective Remarks: Patient states that he is breathing is very difficult currently. He underwent bronchoscopy which revealed thick mucous plugging. Denies chest pain, fever, chills. Still has episodes of coughing. The white blood cell count is elevated. Preliminary [facility] culture has yeast with pseudohyphae. This is a 78-year-old white male who presented to the emergency department on 06/19/2018 with chest pain. The patient was felt to have a COPD exacerbation. He was treated in the hospital and discharged on 06/22/2018 on inhalers and oral antibiotic. The patient states that after he went home, he was still having difficulty with breathing and was unable to sleep lying flat. He was given IV Levaquin in the hospital and discharged on p.o. Levaquin. Continued to have worsening shortness of breath. The patient notes that he did spent approximately 5 weeks in [place] before returning to [place] approximately 2 weeks ago and after he got to [place] he started feeling sick. Past Medical History: PAST MEDICAL HISTORY: Diabetes mellitus, hypertension, hyperlipidemia, monoclonal gammopathy, Parkinson's disease, chronic left shoulder pain, abscess of the gallbladder, anxiety disorder, CVA, history of bilateral knee replacement, cholecystectomy. Allergies/Adverse Reactions: Allergies sulfamethoxazole [From Bactrim] Allergy (Mild, Verified 06/19/18 12:12) Hives trimethoprim [From Bactrim] Allergy (Mild, Verified 06/19/18 12:12) Hives Objective Vital Signs 06/30/18 14:42 06/30/18 15:46 06/30/18 15:50 Temperature 97.5 F L 97.4 F L Pulse Rate 80 78 71 Respiratory Rate 18 18 25 H Blood Pressure 107/63 149/71 H Pulse Oximetry 93 L 97 06/30/18 16:00 06/30/18 16:15 06/30/18 16:26 Temperature Pulse Rate 67 63 Respiratory Rate 20 14 Blood Pressure 144/70 H 144/72 H Pulse Oximetry 96 95 95 06/30/18 16:30 06/30/18 16:45 06/30/18 20:00 Temperature 97.6 F 97.2 F L Pulse Rate 67 72 68 Respiratory Rate 16 19 18 Blood Pressure 150/71 H 146/69 H 148/73 H Pulse Oximetry 94 L 95 95 06/30/18 20:35 06/30/18 21:17 06/30/18 23:24 Temperature Pulse Rate 73 76 79 Respiratory Rate 22 21 19 Blood Pressure Pulse Oximetry 94 L 93 L 07/01/18 00:00 07/01/18 04:00 07/01/18 04:11 Temperature 97.6 F 98.1 F Pulse Rate 72 65 91 H Respiratory Rate 18 18 18 Blood Pressure 115/59 L 130/62 Pulse Oximetry 93 L 95 07/01/18 04:12 07/01/18 08:00 07/01/18 08:31 Temperature 97.3 F L Pulse Rate 71 78 Respiratory Rate 20 18 Blood Pressure 147/74 H Pulse Oximetry 94 L 94 L 07/01/18 12:00 Temperature 97.2 F L Pulse Rate 68 Respiratory Rate 20 Blood Pressure 124/56 L Pulse Oximetry 94 L Intake & Output 06/30/18 07/01/18 07/01/18 18:59 06:59 18:59 Intake Total 1017.5 / 1017.5 50 / 50 567.5 / 567.5 Balance 1017.5 / 1017.5 50 / 50 567.5 / 567.5 Weight 113.398 kg Intake: IV 567.5 / 567.5 50 / 50 567.5 / 567.5 Zosyn 3.375 GM Premix 50 ML @ 50 / 50 50 / 50 50 / 50 100 mls/hr IV.SIG Q8H [facility] Rx#: [id number] Vancomycin Inj 1,750 MG In NS 517.5 / 517.5 517.5 / 517.5 Inj 500 ML @ 250 mls/hr IV.SIG Q18H [facility] Rx#:[id number] Oral 450 / 450 Other: # Voids 3 2 Date of Last Bowel Movement 06/28/18 06/29/18 06/29/18 06/28/18 13:20 Blood - Peripheral Aerobic Blood Culture - Preliminary No growth in 3 days 06/28/18 13:20 Blood - Peripheral Anaerobic Blood Culture - Preliminary No growth in 3 days 06/28/18 13:20 Blood - Peripheral Aerobic Blood Culture - Preliminary No growth in 3 days 06/28/18 13:20 Blood - Peripheral Anaerobic Blood Culture - Preliminary No growth in 3 days 06/30/18 15:10 Bronchial Washings - Bronchial Fungal Smear - Final Few budding yeast with pseudohyphae 06/30/18 15:10 Bronchial Washings - Bronchial Fungal Culture - Pending 06/30/18 15:10 Bronchial - Bronchial Gram Stain - Final 06/30/18 15:10 Bronchial - Bronchial Bronchial Culture - Pending 06/30/18 15:10 Bronchial Washings - Bronchial Acid Fast Bacilli Smear - Pending 06/30/18 15:10 Bronchial Washings - Bronchial Mycobacterial Culture - Pending 06/28/18 14:14 Sputum - Expectorated Sputum Gram Stain - Final 06/28/18 14:14 Sputum - Expectorated Sputum Sputum Culture - Final Heavy growth normal respiratory [facility] - Hematology Results 07/01/18 05:30 WBC 18.1 H RBC 4.43 L Hgb 13.3 Hct 40.2 MCV 90.6 MCH 30.0 MCHC 33.1 RDW 18.3 H Plt Count 149 L MPV 9.0 Neut % (Auto) 93.7 H Lymph % (Auto) 2.2 L [place] % (Auto) 4.0 Eos % (Auto) 0.0 Baso % (Auto) 0.1 Neut # (Auto) 17.0 H Lymph # (Auto) 0.4 L [place] # (Auto) 0.7 Eos # (Auto) 0.0 Baso # (Auto) 0.0 WBC Differential . Differential Comment Auto diff final Lab - Chemistry Results 06/29/18 06/29/18 06/29/18 05:45 16:33 20:38 Sodium Potassium Chloride Carbon Dioxide Anion Gap BUN Creatinine Estimated GFR POC Glucose 234 H 221 H Random Glucose Hemoglobin A1c 7.8 H Calcium Total Bilirubin AST ALT Alkaline Phosphatase Total Protein Albumin 06/30/18 06/30/18 06/30/18 03:25 10:02 13:04 Sodium Potassium Chloride Carbon Dioxide Anion Gap BUN Creatinine Estimated GFR POC Glucose 243 H 251 H 208 H Random Glucose Hemoglobin A1c Calcium Total Bilirubin AST ALT Alkaline Phosphatase Total Protein Albumin 06/30/18 06/30/18 07/01/18 18:31 20:10 03:05 Sodium Potassium Chloride Carbon Dioxide Anion Gap BUN Creatinine Estimated GFR POC Glucose 157 H 155 H 270 H Random Glucose Hemoglobin A1c Calcium Total Bilirubin AST ALT Alkaline Phosphatase Total Protein Albumin 07/01/18 07/01/18 07/01/18 05:38 07:27 11:50 Sodium 139 Potassium 4.3 Chloride 104 Carbon Dioxide 26.3 Anion Gap 9 BUN 25 H Creatinine 1.14 Estimated GFR 62 L POC Glucose 204 H 260 H Random Glucose 228 H Hemoglobin A1c Calcium 7.7 L Total Bilirubin 0.3 AST 11 L ALT 23 Alkaline Phosphatase 84 Total Protein 6.0 L D Albumin 2.9 L Imaging: ITS Impressions Chest X-Ray 06/30/18 15:32 CONCLUSION: 1. No pneumothorax following bronchoscopy. 2. Right lateral lower lung zone airspace consolidation, left > right, presumably reflecting atelectasis. Physical Exam: PHYSICAL EXAMINATION: GENERAL: Awake and alert. Appears to be having some difficulty breathing. HEENT: The head is atraumatic. Extraocular movements grossly intact. Pupils reactive to light. No icterus. Oropharynx moist, mucosa without lesions. NECK: Supple. No adenopathy. LUNGS: Bilateral rhonchi throughout. HEART: Regular S1 and S2. Irregular rate. No audible murmur. ABDOMEN: Bowel sounds present, obese, soft. No tenderness appreciated. EXTREMITIES: 1+ pitting edema of the lower extremities. No clubbing or cyanosis. SKIN: No diffuse rash. NEUROLOGIC: No gross focal finding. PSYCHIATRIC: Calm and cooperative. Assessment and Plan - Plan IMPRESSION: 1. Probable hospital-acquired pneumonia. The patient with a known history of resistant bacterial pneumonia in the past. Bronchoscopy revealed mucous plugging and culture has preliminary has yeast. 2. Orthopnea. 3. Leukocytosis. Patient still looks very ill. RECOMMENDATIONS: 1. Change piperacillin/tazobactam to Primaxin.. 2. Add micafungin. 3. Continue vancomycin. 4. Monitor sputum culture. 5. Monitor blood cultures. 6. Monitor clinical and respiratory status. Antibiotic adjustments depending on culture results of clinical improvement.
[2018-07-01] MEDS: Budesonide-Formoterol 160/4.5 MCG 6 GM Inhaler INH SCH ×2 (13:15→21:46)
--- NOTE | 2018-07-01 14:15 | P.PNIM ---
Subjective Interval history: Respiratory status remains compromised, but no worsening. Post Bronchoscopy yesterday. No distress today. Physical Exam Vital signs: Vital Signs 06/30/18 14:42 06/30/18 15:46 06/30/18 15:50 Temperature 97.5 F L 97.4 F L Pulse Rate 80 78 71 Respiratory Rate 18 18 25 H Blood Pressure 107/63 149/71 H Pulse Oximetry 93 L 97 06/30/18 16:00 06/30/18 16:15 06/30/18 16:26 Temperature Pulse Rate 67 63 Respiratory Rate 20 14 Blood Pressure 144/70 H 144/72 H Pulse Oximetry 96 95 95 06/30/18 16:30 06/30/18 16:45 06/30/18 20:00 Temperature 97.6 F 97.2 F L Pulse Rate 67 72 68 Respiratory Rate 16 19 18 Blood Pressure 150/71 H 146/69 H 148/73 H Pulse Oximetry 94 L 95 95 06/30/18 20:35 06/30/18 21:17 06/30/18 23:24 Temperature Pulse Rate 73 76 79 Respiratory Rate 22 21 19 Blood Pressure Pulse Oximetry 94 L 93 L 07/01/18 00:00 07/01/18 04:00 07/01/18 04:11 Temperature 97.6 F 98.1 F Pulse Rate 72 65 91 H Respiratory Rate 18 18 18 Blood Pressure 115/59 L 130/62 Pulse Oximetry 93 L 95 07/01/18 04:12 07/01/18 08:00 07/01/18 08:31 Temperature 97.3 F L Pulse Rate 71 78 Respiratory Rate 20 18 Blood Pressure 147/74 H Pulse Oximetry 94 L 94 L 07/01/18 12:00 Temperature 97.2 F L Pulse Rate 68 Respiratory Rate 20 Blood Pressure 124/56 L Pulse Oximetry 94 L Intake & Output 06/30/18 07/01/18 07/01/18 18:59 06:59 18:59 Intake Total 1017.5 / 1017.5 50 / 50 567.5 / 567.5 Balance 1017.5 / 1017.5 50 / 50 567.5 / 567.5 Weight 113.398 kg Intake: IV 567.5 / 567.5 50 / 50 567.5 / 567.5 Zosyn 3.375 GM Premix 50 ML @ 50 / 50 50 / 50 50 / 50 100 mls/hr IV.SIG Q8H [facility] Rx#: [id number] Vancomycin Inj 1,750 MG In NS 517.5 / 517.5 517.5 / 517.5 Inj 500 ML @ 250 mls/hr IV.SIG Q18H [facility] Rx#:[id number] Oral 450 / 450 Other: # Voids 3 2 Date of Last Bowel Movement 06/28/18 06/29/18 06/29/18 Narrative: GENERAL: NAD, A&Ox3 HEAD: Normocephalic. NECK: Supple, trachea midline. No lymphadenopathy. EYES: No scleral icterus. No injection or drainage. CARDIOVASCULAR: Regular rate and rhythm without murmurs, gallops, or rubs. RESPIRATORY: Breath sounds equal bilaterally. No accessory muscle use. Bilateral rhonchi, crackles, and wheezing. GASTROINTESTINAL: Abdomen soft, non-tender, nondistended. MUSCULOSKELETAL: No cyanosis, or edema. SKIN: Warm and dry. NEURO: No focal neurological deficits. Results - Labs CBC & Chem 7: 07/01/18 05:30 07/01/18 05:38 Laboratory Results - last 24 hr 06/30/18 06/30/18 07/01/18 18:31 20:10 03:05 WBC RBC Hgb Hct MCV MCH MCHC RDW Plt Count MPV Neut % (Auto) Lymph % (Auto) [place] % (Auto) Eos % (Auto) Baso % (Auto) Neut # (Auto) Lymph # (Auto) [place] # (Auto) Eos # (Auto) Baso # (Auto) WBC Differential Differential Comment Sodium Potassium Chloride Carbon Dioxide Anion Gap BUN Creatinine Estimated GFR POC Glucose 157 H 155 H 270 H Random Glucose Calcium Total Bilirubin AST ALT Alkaline Phosphatase Total Protein Albumin Vancomycin Trough 07/01/18 07/01/18 07/01/18 05:30 05:38 07:27 WBC 18.1 H RBC 4.43 L Hgb 13.3 Hct 40.2 MCV 90.6 MCH 30.0 MCHC 33.1 RDW 18.3 H Plt Count 149 L MPV 9.0 Neut % (Auto) 93.7 H Lymph % (Auto) 2.2 L [place] % (Auto) 4.0 Eos % (Auto) 0.0 Baso % (Auto) 0.1 Neut # (Auto) 17.0 H Lymph # (Auto) 0.4 L [place] # (Auto) 0.7 Eos # (Auto) 0.0 Baso # (Auto) 0.0 WBC Differential . Differential Comment Auto diff final Sodium 139 Potassium 4.3 Chloride 104 Carbon Dioxide 26.3 Anion Gap 9 BUN 25 H Creatinine 1.14 Estimated GFR 62 L POC Glucose 204 H Random Glucose 228 H Calcium 7.7 L Total Bilirubin 0.3 AST 11 L ALT 23 Alkaline Phosphatase 84 Total Protein 6.0 L D Albumin 2.9 L Vancomycin Trough 15.2 H 07/01/18 11:50 WBC RBC Hgb Hct MCV MCH MCHC RDW Plt Count MPV Neut % (Auto) Lymph % (Auto) [place] % (Auto) Eos % (Auto) Baso % (Auto) Neut # (Auto) Lymph # (Auto) [place] # (Auto) Eos # (Auto) Baso # (Auto) WBC Differential Differential Comment Sodium Potassium Chloride Carbon Dioxide Anion Gap BUN Creatinine Estimated GFR POC Glucose 260 H Random Glucose Calcium Total Bilirubin AST ALT Alkaline Phosphatase Total Protein Albumin Vancomycin Trough Microbiology 06/30/18 15:10 Bronchial - Bronchial Gram Stain - Final 06/30/18 15:10 Bronchial - Bronchial Bronchial Culture - Preliminary Light growth normal respiratory carson at 24 hours 06/28/18 13:20 Blood - Peripheral Aerobic Blood Culture - Preliminary No growth in 3 days 06/28/18 13:20 Blood - Peripheral Anaerobic Blood Culture - Preliminary No growth in 3 days 06/28/18 13:20 Blood - Peripheral Aerobic Blood Culture - Preliminary No growth in 3 days 06/28/18 13:20 Blood - Peripheral Anaerobic Blood Culture - Preliminary No growth in 3 days 06/30/18 15:10 Bronchial Washings - Bronchial Fungal Smear - Final Few budding yeast with pseudohyphae 06/28/18 14:14 Sputum - Expectorated Sputum Gram Stain - Final 06/28/18 14:14 Sputum - Expectorated Sputum Sputum Culture - Final Heavy growth normal respiratory carson - Imaging Impressions Chest X-Ray 06/30/18 15:32 CONCLUSION: 1. No pneumothorax following bronchoscopy. 2. Right lateral lower lung zone airspace consolidation, left > right, presumably reflecting atelectasis. Assessment and Plan - Plan 78-year-old male admitted with bilateral pneumonia and respiratory failure Continue oxygen supplementation. Follow cultures. Acute respiratory infection Community-acquired pneumonia respiratory failure Failed outpatient therapy History of Acinetobacter infection Primaxin micafungin vancomycin ID following Pulmonology following Continue steroids Continue Mucinex Continue duo nebs Symbicort Supplemental oxygen Possible cor pulmonale Echocardiogram pending Diabetes mellitus type 2 Follow blood sugars Insulin sliding scale Diabetic diet Hypertension Continue baseline treatment Follow blood pressures Adjust treatments as needed Hyperlipidemia Continue present treatment Follow as an outpatient Parkinson's disease continue Sinemet Depression anxiety continue Lexapro and Aricept and Cymbalta Chronic pain continue Lyrica and Cymbalta GI prophylaxis Nexium twice daily and Carafate Chronic constipation Continue Linzess DVT prophylaxis Lovenox
[2018-07-01] MEDS: Enoxaparin Inj 40 MG/0.4 ML Syringe SQ SCH (17:46)
[2018-07-01] MEDS: Temazepam 15 MG Capsule PO SCH (21:41)
[2018-07-02] MEDS: Insulin NovoLOG Aspart Correctional Sugar Inj SQ SCH ×5 (02:46→22:11)
[2018-07-02] MEDS: MethylPREDNISolone Sod Succinate Inj 40 MG/ML Vial IV.PUSH SCH ×3 (05:44→17:16)
[2018-07-02] MEDS: Lipase/Protease/Amylase 24/76/120 DR Capsule PO SCH ×5 (05:44→21:54)
[2018-07-02] MEDS: Sucralfate 1 GM Tablet PO SCH ×3 (05:45→17:17)
[2018-07-02 06:31] LABS: Baso % (Auto) 0.2 % (0.0-2.0); Hematocrit 40.1 % (39.0-51.0); Hemoglobin 13.6 gm/dL (13.0-17.0); Lymph # (Auto) 0.7 th/mm3 (1.0-4.8); Lymph % (Auto) 4.9 % (9.0-44.0); Mean Corpuscular HGB Conc 33.9 % (32.0-36.0); Mean Corpuscular Hemoglobin 30.5 pg (27.0-34.0); Mean Corpuscular Volume 90.2 fL (80.0-100.0); Mean Platelet Volume 8.6 fL (7.0-11.0); Mono # (Auto) 0.8 th/mm3 (0.0-0.9); Mono % (Auto) 5.6 % (0.0-8.0); Neut # (Auto) 12.5 th/mm3 (1.8-7.7); Neut % (Auto) 89.3 % (16.0-70.0); Platelet Count 139 th/mm3 (150-450); Red Blood Count 4.44 mil/mm3 (4.50-5.90); Red Cell Distribution Width 18.3 % (11.6-17.2)
[2018-07-02 06:48] LABS: Albumin 2.7 g/dL (3.4-5.0); Anion Gap 10 meq/L (5-15); Aspartate Aminotransferase 9 U/L (15-37); Blood Urea Nitrogen 23 mg/dL (7-18); Calcium 7.7 mg/dL (8.5-10.1); Carbon Dioxide 26.2 meq/L (21.0-32.0); Chloride 106 meq/L (98-107); Glomerular Filtration Rate 71 mL/min (>89); Glucose,Random 179 mg/dL (74-106); Potassium 4.2 meq/L (3.5-5.1); Sodium 142 meq/L (136-145)
[2018-07-02 06:52] LABS: Alanine Aminotransferase 21 U/L (12-78); Alkaline Phosphatase 75 U/L (45-117); Total Protein 5.7 g/dL (6.4-8.2)
[2018-07-02] MEDS: Senna/Docusate Sodium 8.6/50 MG Tablet PO SCH ×2 (08:56→21:54)
[2018-07-02] MEDS: Duloxetine 60 MG DR Capsule PO SCH ×2 (08:56→21:54)
[2018-07-02] MEDS: Celecoxib 200 MG Capsule PO SCH ×2 (08:56→21:54)
[2018-07-02] MEDS: Lisinopril 10 MG Tablet PO SCH (08:56)
[2018-07-02] MEDS: guaiFENesin 600 MG ER Tablet PO SCH ×2 (08:56→21:54)
[2018-07-02] MEDS: Escitalopram 10 MG Tablet PO SCH (08:56)
[2018-07-02] MEDS: Budesonide-Formoterol 160/4.5 MCG 6 GM Inhaler INH SCH ×2 (08:57→21:58)
[2018-07-02] MEDS: Insulin Detemir Inj 1,000 UNIT/10 ML Vial SQ SCH (08:57)
--- NOTE | 2018-07-02 10:36 | P.PNIM ---
Subjective Interval history: Only slight improvement in respiratory status today. Patient is currently requiring about 4 L of oxygen to maintain saturations. At baseline he does not use oxygen. Physical Exam Vital signs: Vital Signs 07/01/18 12:00 07/01/18 15:56 07/01/18 16:00 Temperature 97.2 F L 97.5 F L Pulse Rate 68 88 68 Respiratory Rate 20 18 20 Blood Pressure 124/56 L 152/67 H Pulse Oximetry 94 L 92 L 95 07/01/18 20:00 07/01/18 20:15 07/02/18 00:00 Temperature 97.7 F 97.4 F L Pulse Rate 67 67 78 Respiratory Rate 18 20 18 Blood Pressure 161/76 H 156/74 H Pulse Oximetry 98 97 07/02/18 00:06 07/02/18 03:26 07/02/18 04:00 Temperature 97.4 F L Pulse Rate 65 66 60 Respiratory Rate 18 18 18 Blood Pressure 151/71 H Pulse Oximetry 93 L 07/02/18 07:18 07/02/18 08:00 07/02/18 08:07 Temperature 97.9 F Pulse Rate 62 61 Respiratory Rate 20 18 Blood Pressure 136/68 Pulse Oximetry 94 L 96 95 Intake & Output 07/01/18 07/02/18 07/02/18 18:59 06:59 18:59 Intake Total 1227.5 / 1227.5 840 / 840 100 / 100 Balance 1227.5 / 1227.5 840 / 840 100 / 100 Weight 113.398 kg Intake: IV 667.5 / 667.5 840 / 840 100 / 100 Primaxin Inj 500 MG In NS Inj 100 / 100 200 / 200 100 / 100 100 ML @ 200 mls/hr IV.SIG Q6H [facility] Rx#:[id number] Mycamine Inj 100 MG In NS Inj 100 / 100 100 ML @ 100 mls/hr IV.SIG Q24H [facility] Rx#:[id number] Zosyn 3.375 GM Premix 50 ML @ 50 / 50 100 mls/hr IV.SIG Q8H [facility] Rx#: [id number] Vancomycin Inj 1,750 MG In NS 517.5 / 517.5 540 / 540 Inj 500 ML @ 250 mls/hr IV.SIG Q18H [facility] Rx#:[id number] Oral 560 / 560 Other: # Voids 6 2 Date of Last Bowel Movement 06/29/18 07/01/18 06/29/18 # Bowel Movements 1 Narrative: GENERAL: NAD, A&Ox3 HEAD: Normocephalic. NECK: Supple, trachea midline. No lymphadenopathy. EYES: No scleral icterus. No injection or drainage. CARDIOVASCULAR: Regular rate and rhythm without murmurs, gallops, or rubs. RESPIRATORY: Breath sounds equal bilaterally. No accessory muscle use. Bilateral rhonchi, crackles, and wheezing. GASTROINTESTINAL: Abdomen soft, non-tender, nondistended. MUSCULOSKELETAL: No cyanosis, or edema. SKIN: Warm and dry. NEURO: No focal neurological deficits. Results - Labs CBC & Chem 7: 07/02/18 05:42 07/02/18 05:42 Laboratory Results - last 24 hr 07/01/18 07/01/18 07/01/18 11:50 15:50 20:20 WBC RBC Hgb Hct MCV MCH MCHC RDW Plt Count MPV Neut % (Auto) Lymph % (Auto) [place] % (Auto) Eos % (Auto) Baso % (Auto) Neut # (Auto) Lymph # (Auto) [place] # (Auto) Eos # (Auto) Baso # (Auto) WBC Differential Differential Comment Sodium Potassium Chloride Carbon Dioxide Anion Gap BUN Creatinine Estimated GFR POC Glucose 260 H 185 H 219 H Random Glucose Calcium Total Bilirubin AST ALT Alkaline Phosphatase Total Protein Albumin 07/02/18 07/02/18 07/02/18 02:45 05:42 05:42 WBC 14.0 H RBC 4.44 L Hgb 13.6 Hct 40.1 MCV 90.2 MCH 30.5 MCHC 33.9 RDW 18.3 H Plt Count 139 L MPV 8.6 Neut % (Auto) 89.3 H Lymph % (Auto) 4.9 L [place] % (Auto) 5.6 Eos % (Auto) 0.0 Baso % (Auto) 0.2 Neut # (Auto) 12.5 H Lymph # (Auto) 0.7 L [place] # (Auto) 0.8 Eos # (Auto) 0.0 Baso # (Auto) 0.0 WBC Differential . Differential Comment Auto diff final Sodium 142 Potassium 4.2 Chloride 106 Carbon Dioxide 26.2 Anion Gap 10 BUN 23 H Creatinine 1.02 Estimated GFR 71 L POC Glucose 270 H Random Glucose 179 H Calcium 7.7 L Total Bilirubin 0.4 AST 9 L ALT 21 Alkaline Phosphatase 75 Total Protein 5.7 L Albumin 2.7 L 07/02/18 07:40 WBC RBC Hgb Hct MCV MCH MCHC RDW Plt Count MPV Neut % (Auto) Lymph % (Auto) [place] % (Auto) Eos % (Auto) Baso % (Auto) Neut # (Auto) Lymph # (Auto) [place] # (Auto) Eos # (Auto) Baso # (Auto) WBC Differential Differential Comment Sodium Potassium Chloride Carbon Dioxide Anion Gap BUN Creatinine Estimated GFR POC Glucose 207 H Random Glucose Calcium Total Bilirubin AST ALT Alkaline Phosphatase Total Protein Albumin Microbiology 06/30/18 15:10 Bronchial Washings - Bronchial Acid Fast Bacilli Smear - Final No acid fast bacilli seen 06/30/18 15:10 Bronchial - Bronchial Gram Stain - Final 06/30/18 15:10 Bronchial - Bronchial Bronchial Culture - Preliminary Light growth normal respiratory carson at 24 hours 06/28/18 13:20 Blood - Peripheral Aerobic Blood Culture - Preliminary No growth in 3 days 06/28/18 13:20 Blood - Peripheral Anaerobic Blood Culture - Preliminary No growth in 3 days 06/28/18 13:20 Blood - Peripheral Aerobic Blood Culture - Preliminary No growth in 3 days 06/28/18 13:20 Blood - Peripheral Anaerobic Blood Culture - Preliminary No growth in 3 days 06/30/18 15:10 Bronchial Washings - Bronchial Fungal Smear - Final Few budding yeast with pseudohyphae Assessment and Plan - Plan 78-year-old male admitted with bilateral pneumonia and respiratory failure Continue oxygen supplementation. Follow cultures. No growth on cultures thus far. Patient is becoming more active. Acute respiratory infection Community-acquired pneumonia respiratory failure Failed outpatient therapy History of Acinetobacter infection Primaxin micafungin vancomycin ID following Pulmonology following Continue steroids Continue Mucinex Continue duo nebs Symbicort Supplemental oxygen Possible cor pulmonale Echocardiogram pending Diabetes mellitus type 2 Follow blood sugars Insulin sliding scale Diabetic diet Hypertension Continue baseline treatment Follow blood pressures Adjust treatments as needed Hyperlipidemia Continue present treatment Follow as an outpatient Parkinson's disease continue Sinemet Depression anxiety continue Lexapro and Aricept and Cymbalta Chronic pain continue Lyrica and Cymbalta GI prophylaxis Nexium twice daily and Carafate Chronic constipation Continue Linzess DVT prophylaxis Lovenox
[2018-07-02] MEDS: Vancomycin Inj 1,750 MG in Sodium Chlor 0.9% Inj 500 ML IV.SIG SCH (17:15)
[2018-07-02] MEDS: Enoxaparin Inj 40 MG/0.4 ML Syringe SQ SCH (17:16)
--- NOTE | 2018-07-02 17:30 | P.PN ---
Subjective Interval history: ALERT NAD Physical Exam Vital signs: Vital Signs 07/01/18 20:00 07/01/18 20:15 07/02/18 00:00 Temperature 97.7 F 97.4 F L Pulse Rate 67 67 78 Respiratory Rate 18 20 18 Blood Pressure 161/76 H 156/74 H Pulse Oximetry 98 97 07/02/18 00:06 07/02/18 03:26 07/02/18 04:00 Temperature 97.4 F L Pulse Rate 65 66 60 Respiratory Rate 18 18 18 Blood Pressure 151/71 H Pulse Oximetry 93 L 07/02/18 07:18 07/02/18 08:00 07/02/18 08:07 Temperature 97.9 F Pulse Rate 62 61 Respiratory Rate 20 18 Blood Pressure 136/68 Pulse Oximetry 94 L 96 95 07/02/18 12:00 07/02/18 12:56 07/02/18 15:26 Temperature 97.5 F L Pulse Rate 72 82 Respiratory Rate 17 18 Blood Pressure 139/67 Pulse Oximetry 91 L 92 L 07/02/18 15:27 07/02/18 15:57 Temperature 98.1 F Pulse Rate 67 68 Respiratory Rate 18 14 Blood Pressure 161/79 H Pulse Oximetry 98 Intake & Output 07/01/18 07/02/18 07/02/18 18:59 06:59 18:59 Intake Total 1227.5 / 1227.5 840 / 840 300 / 300 Balance 1227.5 / 1227.5 840 / 840 300 / 300 Weight 113.398 kg Intake: IV 667.5 / 667.5 840 / 840 300 / 300 Primaxin Inj 500 MG In NS Inj 100 / 100 200 / 200 200 / 200 100 ML @ 200 mls/hr IV.SIG Q6H [facility] Rx#:[id number] Mycamine Inj 100 MG In NS Inj 100 / 100 100 / 100 100 ML @ 100 mls/hr IV.SIG Q24H [facility] Rx#:[id number] Zosyn 3.375 GM Premix 50 ML @ 50 / 50 100 mls/hr IV.SIG Q8H [facility] Rx#: [id number] Vancomycin Inj 1,750 MG In NS 517.5 / 517.5 540 / 540 Inj 500 ML @ 250 mls/hr IV.SIG Q18H [facility] Rx#:[id number] Oral 560 / 560 Other: # Voids 6 2 Date of Last Bowel Movement 06/29/18 07/01/18 06/29/18 # Bowel Movements 1 Narrative: GENERAL: NAD, A&Ox3 HEAD: Normocephalic. NECK: Supple, trachea midline. No lymphadenopathy. EYES: No scleral icterus. No injection or drainage. CARDIOVASCULAR: Regular rate and rhythm without murmurs, gallops, or rubs. RESPIRATORY: Breath sounds equal bilaterally. No accessory muscle use. Bilateral rhonchi, crackles, and wheezing. GASTROINTESTINAL: Abdomen soft, non-tender, nondistended. MUSCULOSKELETAL: No cyanosis, or edema. SKIN: Warm and dry. NEURO: No focal neurological deficits. Results - Labs CBC & Chem 7: 07/02/18 05:42 07/02/18 05:42 Laboratory Results - last 24 hr 07/01/18 07/02/18 07/02/18 20:20 02:45 05:42 WBC 14.0 H RBC 4.44 L Hgb 13.6 Hct 40.1 MCV 90.2 MCH 30.5 MCHC 33.9 RDW 18.3 H Plt Count 139 L MPV 8.6 Neut % (Auto) 89.3 H Lymph % (Auto) 4.9 L [place] % (Auto) 5.6 Eos % (Auto) 0.0 Baso % (Auto) 0.2 Neut # (Auto) 12.5 H Lymph # (Auto) 0.7 L [place] # (Auto) 0.8 Eos # (Auto) 0.0 Baso # (Auto) 0.0 WBC Differential . Differential Comment Auto diff final Sodium Potassium Chloride Carbon Dioxide Anion Gap BUN Creatinine Estimated GFR POC Glucose 219 H 270 H Random Glucose Calcium Total Bilirubin AST ALT Alkaline Phosphatase Total Protein Albumin 07/02/18 07/02/18 07/02/18 05:42 07:40 11:44 WBC RBC Hgb Hct MCV MCH MCHC RDW Plt Count MPV Neut % (Auto) Lymph % (Auto) [place] % (Auto) Eos % (Auto) Baso % (Auto) Neut # (Auto) Lymph # (Auto) [place] # (Auto) Eos # (Auto) Baso # (Auto) WBC Differential Differential Comment Sodium 142 Potassium 4.2 Chloride 106 Carbon Dioxide 26.2 Anion Gap 10 BUN 23 H Creatinine 1.02 Estimated GFR 71 L POC Glucose 207 H 257 H Random Glucose 179 H Calcium 7.7 L Total Bilirubin 0.4 AST 9 L ALT 21 Alkaline Phosphatase 75 Total Protein 5.7 L Albumin 2.7 L 07/02/18 15:49 WBC RBC Hgb Hct MCV MCH MCHC RDW Plt Count MPV Neut % (Auto) Lymph % (Auto) [place] % (Auto) Eos % (Auto) Baso % (Auto) Neut # (Auto) Lymph # (Auto) [place] # (Auto) Eos # (Auto) Baso # (Auto) WBC Differential Differential Comment Sodium Potassium Chloride Carbon Dioxide Anion Gap BUN Creatinine Estimated GFR POC Glucose 220 H Random Glucose Calcium Total Bilirubin AST ALT Alkaline Phosphatase Total Protein Albumin Microbiology 06/30/18 15:10 Bronchial - Bronchial Gram Stain - Final 06/30/18 15:10 Bronchial - Bronchial Bronchial Culture - Final Heavy growth normal respiratory carson 06/28/18 13:20 Blood - Peripheral Aerobic Blood Culture - Preliminary No growth in 4 days 06/28/18 13:20 Blood - Peripheral Anaerobic Blood Culture - Preliminary No growth in 4 days 06/28/18 13:20 Blood - Peripheral Aerobic Blood Culture - Preliminary No growth in 4 days 06/28/18 13:20 Blood - Peripheral Anaerobic Blood Culture - Preliminary No growth in 4 days 06/30/18 15:10 Bronchial Washings - Bronchial Acid Fast Bacilli Smear - Final No acid fast bacilli seen Assessment and Plan - Plan COPD, PNA IMPROVING PLAN O2 NEEDED BRONCHODILATOR THERAPY ANTIBX INCREASE ACTIVITY
[2018-07-02] MEDS: Temazepam 15 MG Capsule PO SCH (21:54)
[2018-07-03] MEDS: Sucralfate 1 GM Tablet PO SCH ×5 (01:40→23:36)
[2018-07-03] MEDS: MethylPREDNISolone Sod Succinate Inj 40 MG/ML Vial IV.PUSH SCH ×5 (01:40→23:35)
[2018-07-03] MEDS: Insulin NovoLOG Aspart Correctional Sugar Inj SQ SCH ×5 (04:16→21:31)
[2018-07-03] MEDS: Lipase/Protease/Amylase 24/76/120 DR Capsule PO SCH ×5 (06:41→21:29)
[2018-07-03] MEDS: Insulin Detemir Inj 1,000 UNIT/10 ML Vial SQ SCH (08:50)
[2018-07-03] MEDS: Duloxetine 60 MG DR Capsule PO SCH ×2 (08:50→21:30)
[2018-07-03] MEDS: Senna/Docusate Sodium 8.6/50 MG Tablet PO SCH ×2 (08:50→21:30)
[2018-07-03] MEDS: Lisinopril 10 MG Tablet PO SCH (08:51)
[2018-07-03] MEDS: Escitalopram 10 MG Tablet PO SCH (08:51)
[2018-07-03] MEDS: Celecoxib 200 MG Capsule PO SCH ×2 (08:51→21:30)
[2018-07-03] MEDS: guaiFENesin 600 MG ER Tablet PO SCH ×2 (08:53→21:29)
[2018-07-03] MEDS: Budesonide-Formoterol 160/4.5 MCG 6 GM Inhaler INH SCH ×2 (08:54→21:30)
[2018-07-03] MEDS ORDERED: Pharmacy Ordered Lab Info OTHER ONE (11:45)
[2018-07-03] MEDS: Vancomycin Inj 1,750 MG in Sodium Chlor 0.9% Inj 500 ML IV.SIG SCH (13:08)
--- NOTE | 2018-07-03 14:57 | P.PN ---
Subjective Interval history: ALERT NO SOB CONGESTED DIFFICULTY RAISING SECREATION Physical Exam Vital signs: Vital Signs 07/02/18 15:26 07/02/18 15:27 07/02/18 15:57 Temperature 98.1 F Pulse Rate 67 68 Respiratory Rate 18 14 Blood Pressure 161/79 H Pulse Oximetry 92 L 98 07/02/18 19:44 07/02/18 20:00 07/03/18 00:00 Temperature 97.3 F L 97.8 F Pulse Rate 68 70 63 Respiratory Rate 20 20 20 Blood Pressure 153/72 H 164/81 H Pulse Oximetry 94 L 96 07/03/18 04:00 07/03/18 04:59 07/03/18 08:00 Temperature 97.5 F L 97.3 F L Pulse Rate 59 L 62 62 Respiratory Rate 18 16 16 Blood Pressure 168/86 H 169/80 H Pulse Oximetry 95 97 97 07/03/18 08:22 07/03/18 09:00 07/03/18 12:00 Temperature 97.7 F Pulse Rate 63 69 87 Respiratory Rate 20 18 Blood Pressure 162/74 H Pulse Oximetry 99 99 Intake & Output 07/02/18 07/03/18 07/03/18 18:59 06:59 18:59 Intake Total 1800 / 1800 740 / 740 100 / 100 Balance 1800 / 1800 740 / 740 100 / 100 Intake: IV 300 / 300 740 / 740 100 / 100 Primaxin Inj 500 MG In NS Inj 200 / 200 200 / 200 100 / 100 100 ML @ 200 mls/hr IV.SIG Q6H [facility] Rx#:[id number] Mycamine Inj 100 MG In NS Inj 100 / 100 100 ML @ 100 mls/hr IV.SIG Q24H [facility] Rx#:[id number] Vancomycin Inj 1,750 MG In NS 540 / 540 Inj 500 ML @ 250 mls/hr IV.SIG Q18H [facility] Rx#:[id number] Tube Feeding 1500 / 1500 Other: # Voids 4 4 Date of Last Bowel Movement 07/02/18 07/02/18 06/29/18 # Bowel Movements 1 0 Narrative: GENERAL: NAD, A&Ox3 HEAD: Normocephalic. NECK: Supple, trachea midline. No lymphadenopathy. EYES: No scleral icterus. No injection or drainage. CARDIOVASCULAR: Regular rate and rhythm without murmurs, gallops, or rubs. RESPIRATORY: Breath sounds equal bilaterally. No accessory muscle use. Bilateral rhonchi, crackles, and wheezing. GASTROINTESTINAL: Abdomen soft, non-tender, nondistended. MUSCULOSKELETAL: No cyanosis, or edema. SKIN: Warm and dry. NEURO: No focal neurological deficits. Results - Labs CBC & Chem 7: 07/02/18 05:42 07/02/18 05:42 Laboratory Results - last 24 hr 07/02/18 07/02/18 07/03/18 15:49 22:05 04:01 POC Glucose 220 H 288 H 258 H Vancomycin Trough 07/03/18 07/03/18 07/03/18 07:07 11:04 12:25 POC Glucose 150 H 223 H Vancomycin Trough 14.2 H Microbiology 06/28/18 13:20 Blood - Peripheral Aerobic Blood Culture - Final No growth in 5 days 06/28/18 13:20 Blood - Peripheral Anaerobic Blood Culture - Final No growth in 5 days 06/28/18 13:20 Blood - Peripheral Aerobic Blood Culture - Final No growth in 5 days 06/28/18 13:20 Blood - Peripheral Anaerobic Blood Culture - Final No growth in 5 days 06/30/18 15:10 Bronchial - Bronchial Gram Stain - Final 06/30/18 15:10 Bronchial - Bronchial Bronchial Culture - Final Heavy growth normal respiratory carson Assessment and Plan - Plan COPD, PNA IMPROVING PLAN O2 NEEDED BRONCHODILATOR THERAPY ANTIBX INCREASE ACTIVITY F/U cxray
--- NOTE | 2018-07-03 15:52 | P.PNIM ---
Subjective Interval history: No growth in cultures thus far. Continue oxygen supplementation, now down to 2 L from 4 L. Congestive cough remains. Physical Exam Vital signs: Vital Signs 07/02/18 15:57 07/02/18 19:44 07/02/18 20:00 Temperature 98.1 F 97.3 F L Pulse Rate 68 68 70 Respiratory Rate 14 20 20 Blood Pressure 161/79 H 153/72 H Pulse Oximetry 98 94 L 07/03/18 00:00 07/03/18 04:00 07/03/18 04:59 Temperature 97.8 F 97.5 F L Pulse Rate 63 59 L 62 Respiratory Rate 20 18 16 Blood Pressure 164/81 H 168/86 H Pulse Oximetry 96 95 97 07/03/18 08:00 07/03/18 08:22 07/03/18 09:00 Temperature 97.3 F L Pulse Rate 62 63 69 Respiratory Rate 16 20 Blood Pressure 169/80 H Pulse Oximetry 97 99 07/03/18 12:00 Temperature 97.7 F Pulse Rate 87 Respiratory Rate 18 Blood Pressure 162/74 H Pulse Oximetry 99 Intake & Output 07/02/18 07/03/18 07/03/18 18:59 06:59 18:59 Intake Total 1800 / 1800 740 / 740 100 / 100 Balance 1800 / 1800 740 / 740 100 / 100 Intake: IV 300 / 300 740 / 740 100 / 100 Primaxin Inj 500 MG In NS Inj 200 / 200 200 / 200 100 / 100 100 ML @ 200 mls/hr IV.SIG Q6H [facility] Rx#:[id number] Mycamine Inj 100 MG In NS Inj 100 / 100 100 ML @ 100 mls/hr IV.SIG Q24H [facility] Rx#:[id number] Vancomycin Inj 1,750 MG In NS 540 / 540 Inj 500 ML @ 250 mls/hr IV.SIG Q18H [facility] Rx#:[id number] Tube Feeding 1500 / 1500 Other: # Voids 4 4 Date of Last Bowel Movement 07/02/18 07/02/18 06/29/18 # Bowel Movements 1 0 Narrative: GENERAL: NAD, A&Ox3 HEAD: Normocephalic. NECK: Supple, trachea midline. No lymphadenopathy. EYES: No scleral icterus. No injection or drainage. CARDIOVASCULAR: Regular rate and rhythm without murmurs, gallops, or rubs. RESPIRATORY: Breath sounds equal bilaterally. No accessory muscle use. Rhonchi , crackles, bilaterally. GASTROINTESTINAL: Abdomen soft, non-tender, nondistended. MUSCULOSKELETAL: No cyanosis, or edema. SKIN: Warm and dry. NEURO: No focal neurological deficits. Results - Labs CBC & Chem 7: 07/02/18 05:42 07/02/18 05:42 Laboratory Results - last 24 hr 07/02/18 07/02/18 07/03/18 15:49 22:05 04:01 POC Glucose 220 H 288 H 258 H Vancomycin Trough 07/03/18 07/03/18 07/03/18 07:07 11:04 12:25 POC Glucose 150 H 223 H Vancomycin Trough 14.2 H Microbiology 06/28/18 13:20 Blood - Peripheral Aerobic Blood Culture - Final No growth in 5 days 06/28/18 13:20 Blood - Peripheral Anaerobic Blood Culture - Final No growth in 5 days 06/28/18 13:20 Blood - Peripheral Aerobic Blood Culture - Final No growth in 5 days 06/28/18 13:20 Blood - Peripheral Anaerobic Blood Culture - Final No growth in 5 days 06/30/18 15:10 Bronchial - Bronchial Gram Stain - Final 06/30/18 15:10 Bronchial - Bronchial Bronchial Culture - Final Heavy growth normal respiratory carson Assessment and Plan - Plan 78-year-old male admitted with bilateral pneumonia and respiratory failure Continue oxygen supplementation, able to wean down to 2 L at this point. Follow cultures. No growth on cultures thus far. Patient is becoming more active. Acute respiratory infection Community-acquired pneumonia respiratory failure Failed outpatient therapy History of Acinetobacter infection Primaxin micafungin vancomycin ID following Pulmonology following Continue steroids Continue Mucinex Continue duo nebs Symbicort Supplemental oxygen Possible cor pulmonale Echocardiogram pending Diabetes mellitus type 2 Follow blood sugars Insulin sliding scale Diabetic diet Hypertension Continue baseline treatment Follow blood pressures Adjust treatments as needed Hyperlipidemia Continue present treatment Follow as an outpatient Parkinson's disease continue Sinemet Depression anxiety continue Lexapro and Aricept and Cymbalta Chronic pain continue Lyrica and Cymbalta GI prophylaxis Nexium twice daily and Carafate Chronic constipation Continue Linzess DVT prophylaxis Lovenox
--- NOTE | 2018-07-03 16:02 | XR ---
EXAM DATE: 07/03/2018 2:55 PM EDT AGE/SEX: 78 years / Male INDICATIONS: Short of breath CLINICAL DATA: This is the patient's subsequent encounter. Patient reports that signs and symptoms h ave been present for 3 days and indicates a pain score of 0/10. MEDICAL/SURGICAL HISTORY: Chronic obstructive pulmonary disease. None. COMPARISON: [facility] [place], CHEST 1V SINGLE AP, 06/30/2018. . FINDINGS: Mildly improved airspace consolidation in the lower lobes bilaterally. The cardiomediastinal contours are unremarkable. Osseous structures are intact. CONCLUSION: 1. Mildly improved bilateral lower lobe, left greater than right, airspace consolidation. Electronically signed by: Chandrakant Ortega MD 07/03/2018 4:01 PM EDT
[2018-07-03] MEDS: Enoxaparin Inj 40 MG/0.4 ML Syringe SQ SCH (17:04)
[2018-07-03] MEDS: Temazepam 15 MG Capsule PO SCH (21:30)
[2018-07-04 01:30] LABS: Baso % (Auto) 0.2 % (0.0-2.0); Hemoglobin 14.2 gm/dL (13.0-17.0); Lymph # (Auto) 0.4 th/mm3 (1.0-4.8); Lymph % (Auto) 3.7 % (9.0-44.0); Mean Corpuscular HGB Conc 33.8 % (32.0-36.0); Mean Corpuscular Hemoglobin 30.4 pg (27.0-34.0); Mean Corpuscular Volume 89.9 fL (80.0-100.0); Mean Platelet Volume 8.4 fL (7.0-11.0); Mono # (Auto) 0.8 th/mm3 (0.0-0.9); Mono % (Auto) 6.7 % (0.0-8.0); Neut # (Auto) 10.1 th/mm3 (1.8-7.7); Neut % (Auto) 89.4 % (16.0-70.0); Platelet Count 139 th/mm3 (150-450); Red Blood Count 4.67 mil/mm3 (4.50-5.90); Red Cell Distribution Width 18.2 % (11.6-17.2); White Blood Count 11.3 th/mm3 (4.0-11.0)
[2018-07-04 02:27] LABS: Calcium 7.8 mg/dL (8.5-10.1); Carbon Dioxide 27.4 meq/L (21.0-32.0); Magnesium 2.1 mg/dL (1.5-2.5)
[2018-07-04] MEDS: Insulin NovoLOG Aspart Correctional Sugar Inj SQ SCH ×5 (03:35→21:48)
[2018-07-04] MEDS: Vancomycin Inj 1,750 MG in Sodium Chlor 0.9% Inj 500 ML IV.SIG SCH (05:43)
[2018-07-04] MEDS: Lipase/Protease/Amylase 24/76/120 DR Capsule PO SCH ×5 (05:43→21:42)
[2018-07-04] MEDS: MethylPREDNISolone Sod Succinate Inj 40 MG/ML Vial IV.PUSH SCH ×3 (05:43→18:35)
[2018-07-04] MEDS: Sucralfate 1 GM Tablet PO SCH ×3 (05:44→18:37)
[2018-07-04] MEDS: Budesonide-Formoterol 160/4.5 MCG 6 GM Inhaler INH SCH ×2 (09:00→21:48)
[2018-07-04] MEDS: Insulin Detemir Inj 1,000 UNIT/10 ML Vial SQ SCH (10:43)
[2018-07-04] MEDS: Escitalopram 10 MG Tablet PO SCH (10:45)
[2018-07-04] MEDS: Duloxetine 60 MG DR Capsule PO SCH ×2 (10:46→21:42)
[2018-07-04] MEDS: Senna/Docusate Sodium 8.6/50 MG Tablet PO SCH ×2 (10:46→21:42)
[2018-07-04] MEDS: guaiFENesin 600 MG ER Tablet PO SCH ×2 (10:46→21:42)
[2018-07-04] MEDS: Celecoxib 200 MG Capsule PO SCH ×2 (10:47→21:42)
[2018-07-04] MEDS: Lisinopril 10 MG Tablet PO SCH (10:52)
[2018-07-04] MEDS: Enoxaparin Inj 40 MG/0.4 ML Syringe SQ SCH (16:01)
--- NOTE | 2018-07-04 16:47 | P.PNIM ---
Subjective Interval history: The patient walked around with the respiratory therapist. He said he was feeling short of breath and had a constant pressure in his chest. Discussed with his family at the bedside. The patient has not been having that much mucus production. He has been eating little. Discussed with nursing. Physical Exam Vital signs: Vital Signs 07/03/18 20:00 07/03/18 20:21 07/04/18 00:00 Temperature 97.7 F 97.4 F L Pulse Rate 73 81 77 Respiratory Rate 18 18 18 Blood Pressure 134/63 152/72 H Pulse Oximetry 94 L 92 L 95 Pulse Oximetry [Exertion on Room Air] Pulse Oximetry [Exertion with Oxygen] Pulse Oximetry [Resting on Room Air] 07/04/18 03:11 07/04/18 04:00 07/04/18 04:26 Temperature 97.8 F Pulse Rate 65 65 Respiratory Rate 18 18 18 Blood Pressure 156/86 H Pulse Oximetry 96 Pulse Oximetry [Exertion on Room Air] Pulse Oximetry [Exertion with Oxygen] Pulse Oximetry [Resting on Room Air] 07/04/18 08:00 07/04/18 08:44 07/04/18 12:00 Temperature 97.7 F 97.2 F L Pulse Rate 61 61 73 Respiratory Rate 14 20 14 Blood Pressure 188/82 H 173/82 H Pulse Oximetry 95 93 L 96 Pulse Oximetry [Exertion on Room Air] Pulse Oximetry [Exertion with Oxygen] Pulse Oximetry [Resting on Room Air] 07/04/18 15:10 07/04/18 15:49 Temperature Pulse Rate 65 Respiratory Rate 20 Blood Pressure Pulse Oximetry Pulse Oximetry [Exertion on Room Air] 87 L Pulse Oximetry [Exertion with Oxygen] 94 L Pulse Oximetry [Resting on Room Air] 92 L Intake & Output 07/03/18 07/04/18 07/04/18 18:59 06:59 18:59 Intake Total 1797.5 / 1797.5 642 / 642 617.5 / 617.5 Balance 1797.5 / 1797.5 642 / 642 617.5 / 617.5 Weight 117.8 kg Intake: IV 817.5 / 817.5 200 / 200 617.5 / 617.5 Primaxin Inj 500 MG In NS Inj 200 / 200 200 / 200 100 / 100 100 ML @ 200 mls/hr IV.SIG Q6H [facility] Rx#:[id number] Mycamine Inj 100 MG In NS Inj 100 / 100 100 ML @ 100 mls/hr IV.SIG Q24H [facility] Rx#:[id number] Vancomycin Inj 1,750 MG In NS 517.5 / 517.5 517.5 / 517.5 Inj 500 ML @ 250 mls/hr IV.SIG Q18H [facility] Rx#:[id number] Oral 980 / 980 442 / 442 Other: # Voids 6 Date of Last Bowel Movement 07/03/18 07/04/18 # Bowel Movements 1 1 Narrative: GENERAL: NAD. HEAD: Normocephalic. NECK: Supple, trachea midline. No lymphadenopathy. EYES: No scleral icterus. No injection or drainage. CARDIOVASCULAR: Regular rate and rhythm without murmurs, gallops, or rubs. RESPIRATORY: Rhonchi, crackles, bilaterally. GASTROINTESTINAL: Abdomen soft, non-tender, nondistended. MUSCULOSKELETAL: No cyanosis, 1+ edema. SKIN: Warm and dry. NEURO: No focal neurological deficits. Results - Labs CBC & Chem 7: 07/04/18 01:17 07/04/18 07:52 Laboratory Results - last 24 hr 07/03/18 07/04/18 07/04/18 20:23 01:17 01:17 WBC 11.3 H RBC 4.67 Hgb 14.2 Hct 42.0 MCV 89.9 MCH 30.4 MCHC 33.8 RDW 18.2 H Plt Count 139 L MPV 8.4 Neut % (Auto) 89.4 H Lymph % (Auto) 3.7 L [place] % (Auto) 6.7 Eos % (Auto) 0.0 Baso % (Auto) 0.2 Neut # (Auto) 10.1 H Lymph # (Auto) 0.4 L [place] # (Auto) 0.8 Eos # (Auto) 0.0 Baso # (Auto) 0.0 WBC Differential . Differential Comment Auto diff final Sodium 138 Potassium 4.0 Chloride 104 Carbon Dioxide 27.4 Anion Gap 7 BUN 26 H Creatinine 1.06 Estimated GFR 68 L POC Glucose 233 H Random Glucose 235 H Calcium 7.8 L Magnesium 2.1 07/04/18 07/04/18 07/04/18 03:28 07:52 08:37 WBC RBC Hgb Hct MCV MCH MCHC RDW Plt Count MPV Neut % (Auto) Lymph % (Auto) [place] % (Auto) Eos % (Auto) Baso % (Auto) Neut # (Auto) Lymph # (Auto) [place] # (Auto) Eos # (Auto) Baso # (Auto) WBC Differential Differential Comment Sodium Potassium Chloride Carbon Dioxide Anion Gap BUN Creatinine 0.98 Estimated GFR 74 L POC Glucose 236 H 204 H Random Glucose Calcium Magnesium 07/04/18 13:15 WBC RBC Hgb Hct MCV MCH MCHC RDW Plt Count MPV Neut % (Auto) Lymph % (Auto) [place] % (Auto) Eos % (Auto) Baso % (Auto) Neut # (Auto) Lymph # (Auto) [place] # (Auto) Eos # (Auto) Baso # (Auto) WBC Differential Differential Comment Sodium Potassium Chloride Carbon Dioxide Anion Gap BUN Creatinine Estimated GFR POC Glucose 183 H Random Glucose Calcium Magnesium Microbiology 06/30/18 15:10 Bronchial Washings - Bronchial Fungal Smear - Final Few budding yeast with pseudohyphae 06/30/18 15:10 Bronchial Washings - Bronchial Fungal Culture - Preliminary Yeast - ID to follow Assessment and Plan - Plan 78-year-old male admitted with bilateral pneumonia and respiratory failure Continue oxygen supplementation, able to wean down to 2 L at this point. Follow cultures. No growth on cultures thus far. Patient is becoming more active. Acute respiratory infection Community-acquired pneumonia respiratory failure Failed outpatient therapy History of Acinetobacter infection Primaxin micafungin vancomycin ID following Pulmonology following Continue steroids Continue Mucinex Continue duo nebs Symbicort Supplemental oxygen. Will need home oxygen per walk test. Diabetes mellitus type 2 Follow blood sugars Insulin sliding scale Diabetic diet Hypertension Continue baseline treatment Follow blood pressures Adjust treatments as needed Parkinson's disease continue Sinemet Depression anxiety continue Lexapro and Aricept and Cymbalta Chronic pain continue Lyrica and Cymbalta Chronic constipation Continue Linzess DVT prophylaxis Lovenox Discharge Planning: Awaiting clinical improvement
--- NOTE | 2018-07-04 19:03 | P.PNPL ---
Subjective Interval history: 78 YOWM with SOB,Pn,parkinson disease Had Bronch, lots of mucous plugs suctioned no Fever Breathing little better Ambulates Feels rattling in the chest Physical Exam Vital signs: Vital Signs 07/03/18 20:00 07/03/18 20:21 07/04/18 00:00 Temperature 97.7 F 97.4 F L Pulse Rate 73 81 77 Respiratory Rate 18 18 18 Blood Pressure 134/63 152/72 H Pulse Oximetry 94 L 92 L 95 Pulse Oximetry [Exertion on Room Air] Pulse Oximetry [Exertion with Oxygen] Pulse Oximetry [Resting on Room Air] 07/04/18 03:11 07/04/18 04:00 07/04/18 04:26 Temperature 97.8 F Pulse Rate 65 65 Respiratory Rate 18 18 18 Blood Pressure 156/86 H Pulse Oximetry 96 Pulse Oximetry [Exertion on Room Air] Pulse Oximetry [Exertion with Oxygen] Pulse Oximetry [Resting on Room Air] 07/04/18 08:00 07/04/18 08:44 07/04/18 12:00 Temperature 97.7 F 97.2 F L Pulse Rate 61 61 73 Respiratory Rate 14 20 14 Blood Pressure 188/82 H 173/82 H Pulse Oximetry 95 93 L 96 Pulse Oximetry [Exertion on Room Air] Pulse Oximetry [Exertion with Oxygen] Pulse Oximetry [Resting on Room Air] 07/04/18 15:10 07/04/18 15:49 07/04/18 16:00 Temperature 97.5 F L Pulse Rate 65 62 Respiratory Rate 20 14 Blood Pressure 171/80 H Pulse Oximetry 98 Pulse Oximetry [Exertion on Room Air] 87 L Pulse Oximetry [Exertion with Oxygen] 94 L Pulse Oximetry [Resting on Room Air] 92 L Intake & Output 07/04/18 07/04/18 07/05/18 06:59 18:59 06:59 Intake Total 642 / 642 617.5 / 617.5 Balance 642 / 642 617.5 / 617.5 Weight 117.8 kg Intake: IV 200 / 200 617.5 / 617.5 Primaxin Inj 500 MG In NS Inj 200 / 200 100 / 100 100 ML @ 200 mls/hr IV.SIG Q6H [facility] Rx#:[id number] Vancomycin Inj 1,750 MG In NS 517.5 / 517.5 Inj 500 ML @ 250 mls/hr IV.SIG Q18H [facility] Rx#:[id number] Oral 442 / 442 Other: # Voids 6 Date of Last Bowel Movement 07/04/18 # Bowel Movements 1 GENERAL: WBWn Mild sob SKIN: Warm and dry. HEAD: Normocephalic. EYES: No scleral icterus. No injection or drainage. NECK: Supple, trachea midline. No JVD or lymphadenopathy. CARDIOVASCULAR: Regular rate and rhythm without murmurs, gallops, or rubs. RESPIRATORY: Breath sounds equal bilaterally. No accessory muscle use. GASTROINTESTINAL: Abdomen soft, non-tender, nondistended. MUSCULOSKELETAL: No cyanosis, or edema. BACK: Nontender without obvious deformity. No CVA tenderness. Assessment and Plan - Plan IMPRESSION: 1. Worsening shortness of breath with coarse crackles and possible mucus impaction. However, his chest x-ray shows only mild atelectasis. 2. Possible congestive heart failure, but BNP is only 25. He has orthopnea and paroxysmal nocturnal dyspnea. His recent CT was negative. 3. Hypertension. 4. Chronic obstructive pulmonary disease. 5. Parkinson disease. PLAN: Cont Abx ID following Aerosol nebs Use Acapella Mucomyst nebs OOB and ambulate
[2018-07-04] MEDS: Temazepam 15 MG Capsule PO SCH (22:55)
[2018-07-05] MEDS: Sucralfate 1 GM Tablet PO SCH ×4 (02:20→18:36)
[2018-07-05] MEDS: Vancomycin Inj 1,750 MG in Sodium Chlor 0.9% Inj 500 ML IV.SIG SCH ×2 (02:20→18:37)
[2018-07-05] MEDS: Insulin NovoLOG Aspart Correctional Sugar Inj SQ SCH ×5 (02:22→22:17)
[2018-07-05] MEDS: MethylPREDNISolone Sod Succinate Inj 40 MG/ML Vial IV.PUSH SCH ×4 (02:23→21:32)
[2018-07-05] MEDS: Lipase/Protease/Amylase 24/76/120 DR Capsule PO SCH ×5 (05:17→21:32)
[2018-07-05] MEDS: Senna/Docusate Sodium 8.6/50 MG Tablet PO SCH ×2 (08:52→21:32)
[2018-07-05] MEDS: Duloxetine 60 MG DR Capsule PO SCH ×2 (08:53→21:32)
[2018-07-05] MEDS: guaiFENesin 600 MG ER Tablet PO SCH ×2 (08:53→21:32)
[2018-07-05] MEDS: Escitalopram 10 MG Tablet PO SCH (08:53)
[2018-07-05] MEDS: Lisinopril 10 MG Tablet PO SCH (08:54)
[2018-07-05] MEDS: Celecoxib 200 MG Capsule PO SCH ×2 (08:54→21:32)
[2018-07-05] MEDS: Insulin Detemir Inj 1,000 UNIT/10 ML Vial SQ SCH (08:58)
[2018-07-05] MEDS: Budesonide-Formoterol 160/4.5 MCG 6 GM Inhaler INH SCH ×2 (09:00→22:28)
[2018-07-05] MEDS ORDERED: Lisinopril 10 MG Tablet PO ONE (11:20)
--- NOTE | 2018-07-05 11:26 | P.PNIM ---
Subjective Interval history: The patient was sitting up in a chair. He said his breathing was stable. He has been ambulating. He says his pain is controlled. No acute concerns at this time. Physical Exam Vital signs: Vital Signs 07/04/18 12:00 07/04/18 15:10 07/04/18 15:49 Temperature 97.2 F L Pulse Rate 60 65 Respiratory Rate 14 20 Blood Pressure 173/82 H Pulse Oximetry 96 Pulse Oximetry [Exertion on Room Air] 87 L Pulse Oximetry [Exertion with Oxygen] 94 L Pulse Oximetry [Resting on Room Air] 92 L 07/04/18 16:00 07/04/18 20:00 07/04/18 20:57 Temperature 97.5 F L 97.8 F Pulse Rate 65 67 65 Respiratory Rate 14 18 16 Blood Pressure 171/80 H 146/70 H Pulse Oximetry 98 94 L 97 Pulse Oximetry [Exertion on Room Air] Pulse Oximetry [Exertion with Oxygen] Pulse Oximetry [Resting on Room Air] 07/05/18 00:00 07/05/18 03:58 07/05/18 04:00 Temperature 97.7 F 97.6 F Pulse Rate 68 58 L 57 L Respiratory Rate 18 20 18 Blood Pressure 140/65 148/88 H Pulse Oximetry 95 97 Pulse Oximetry [Exertion on Room Air] Pulse Oximetry [Exertion with Oxygen] Pulse Oximetry [Resting on Room Air] 07/05/18 08:00 07/05/18 09:31 Temperature 97.3 F L Pulse Rate 63 64 Respiratory Rate 16 16 Blood Pressure 171/82 H Pulse Oximetry 98 94 L Pulse Oximetry [Exertion on Room Air] Pulse Oximetry [Exertion with Oxygen] Pulse Oximetry [Resting on Room Air] Intake & Output 07/04/18 07/05/18 07/05/18 18:59 06:59 18:59 Intake Total 717.5 / 717.5 717.5 / 717.5 100 / 100 Balance 717.5 / 717.5 717.5 / 717.5 100 / 100 Intake: IV 717.5 / 717.5 717.5 / 717.5 100 / 100 Primaxin Inj 500 MG In NS Inj 200 / 200 200 / 200 100 / 100 100 ML @ 200 mls/hr IV.SIG Q6H [facility] Rx#:[id number] Vancomycin Inj 1,750 MG In NS 517.5 / 517.5 517.5 / 517.5 Inj 500 ML @ 250 mls/hr IV.SIG Q18H [facility] Rx#:[id number] Other: # Voids 1 Date of Last Bowel Movement 07/04/18 07/04/18 Narrative: GENERAL: NAD. HEAD: Normocephalic. NECK: Supple, trachea midline. No lymphadenopathy. EYES: No scleral icterus. No injection or drainage. CARDIOVASCULAR: Regular rate and rhythm without murmurs, gallops, or rubs. RESPIRATORY: Rhonchi, crackles, bilaterally. GASTROINTESTINAL: Abdomen soft, non-tender, nondistended. MUSCULOSKELETAL: No cyanosis, 1+ edema. SKIN: Warm and dry. NEURO: No focal neurological deficits. Results - Labs CBC & Chem 7: 07/04/18 01:17 07/04/18 07:52 Laboratory Results - last 24 hr 07/04/18 07/04/18 07/04/18 13:15 16:21 20:28 POC Glucose 183 H 159 H 241 H 07/05/18 07/05/18 02:16 08:44 POC Glucose 305 H 219 H Microbiology 06/30/18 15:10 Bronchial Washings - Bronchial Fungal Smear - Final Few budding yeast with pseudohyphae 06/30/18 15:10 Bronchial Washings - Bronchial Fungal Culture - Preliminary Yeast - ID to follow Assessment and Plan - Plan 78-year-old male admitted with bilateral pneumonia and respiratory failure Acute respiratory infection Community-acquired pneumonia respiratory failure Failed outpatient therapy History of Acinetobacter infection -Primaxin, micafungin, vancomycin per ID. -Pulmonology following. -wean Solumedrol to 40 mg q8h. -Continue duo nebs, Symbicort, Mucinex. -Supplemental oxygen. Will need home oxygen per walk test. Diabetes mellitus type 2 Follow blood sugars -Insulin sliding scale -Diabetic diet Hypertension Not well controlled. -increase lisinopril to 20 mg daily. Adjust as needed. Parkinson's disease -continue Sinemet -PT. Depression/ anxiety -continue Lexapro and Aricept and Cymbalta Chronic pain continue Lyrica and Cymbalta Chronic constipation Continue Linzess DVT prophylaxis Lovenox Discharge Planning: Awaiting clinical improvement
--- NOTE | 2018-07-05 12:33 | P.PNID ---
Subjective Remarks: Patient reports that his breathing is no better but that he is coughing up more phlegm and green sputum. He reports that his oxygen saturation decreases when he does activity. The white blood cell count is lower. Denies chest pain, fever, chills. The white blood cell count is elevated. Preliminary [facility] culture has yeast with pseudohyphae. Final identification not yet available. This is a 78-year-old white male who presented to the emergency department on 06/19/2018 with chest pain. The patient was felt to have a COPD exacerbation. He was treated in the hospital and discharged on 06/22/2018 on inhalers and oral antibiotic. The patient states that after he went home, he was still having difficulty with breathing and was unable to sleep lying flat. He was given IV Levaquin in the hospital and discharged on p.o. Levaquin. Continued to have worsening shortness of breath. The patient notes that he did spent approximately 5 weeks in [place] before returning to [place] approximately 2 weeks ago and after he got to [place] he started feeling sick. Past Medical History: PAST MEDICAL HISTORY: Diabetes mellitus, hypertension, hyperlipidemia, monoclonal gammopathy, Parkinson's disease, chronic left shoulder pain, abscess of the gallbladder, anxiety disorder, CVA, history of bilateral knee replacement, cholecystectomy. Allergies/Adverse Reactions: Allergies sulfamethoxazole [From Bactrim] Allergy (Mild, Verified 06/19/18 12:12) Hives trimethoprim [From Bactrim] Allergy (Mild, Verified 06/19/18 12:12) Hives Objective Vital Signs 07/04/18 15:10 07/04/18 15:49 07/04/18 16:00 Temperature 97.5 F L Pulse Rate 65 65 Respiratory Rate 20 14 Blood Pressure 171/80 H Pulse Oximetry 98 Pulse Oximetry [Exertion on Room Air] 87 L Pulse Oximetry [Exertion with Oxygen] 94 L Pulse Oximetry [Resting on Room Air] 92 L 07/04/18 20:00 07/04/18 20:57 07/05/18 00:00 Temperature 97.8 F 97.7 F Pulse Rate 67 65 68 Respiratory Rate 18 16 18 Blood Pressure 146/70 H 140/65 Pulse Oximetry 94 L 97 95 Pulse Oximetry [Exertion on Room Air] Pulse Oximetry [Exertion with Oxygen] Pulse Oximetry [Resting on Room Air] 07/05/18 03:58 07/05/18 04:00 07/05/18 08:00 Temperature 97.6 F 97.3 F L Pulse Rate 58 L 57 L 63 Respiratory Rate 20 18 16 Blood Pressure 148/88 H 171/82 H Pulse Oximetry 97 98 Pulse Oximetry [Exertion on Room Air] Pulse Oximetry [Exertion with Oxygen] Pulse Oximetry [Resting on Room Air] 07/05/18 09:31 07/05/18 12:00 Temperature 97.8 F Pulse Rate 64 152 H Respiratory Rate 16 16 Blood Pressure 98/65 L Pulse Oximetry 94 L 96 Pulse Oximetry [Exertion on Room Air] Pulse Oximetry [Exertion with Oxygen] Pulse Oximetry [Resting on Room Air] Intake & Output 07/04/18 07/05/18 07/05/18 18:59 06:59 18:59 Intake Total 717.5 / 717.5 717.5 / 717.5 100 / 100 Balance 717.5 / 717.5 717.5 / 717.5 100 / 100 Intake: IV 717.5 / 717.5 717.5 / 717.5 100 / 100 Primaxin Inj 500 MG In NS Inj 200 / 200 200 / 200 100 / 100 100 ML @ 200 mls/hr IV.SIG Q6H [facility] Rx#:[id number] Vancomycin Inj 1,750 MG In NS 517.5 / 517.5 517.5 / 517.5 Inj 500 ML @ 250 mls/hr IV.SIG Q18H [facility] Rx#:[id number] Other: # Voids 1 Date of Last Bowel Movement 07/04/18 07/04/18 06/30/18 15:10 Bronchial Washings - Bronchial Fungal Smear - Final Few budding yeast with pseudohyphae 06/30/18 15:10 Bronchial Washings - Bronchial Fungal Culture - Preliminary Yeast - ID to follow 06/28/18 13:20 Blood - Peripheral Aerobic Blood Culture - Final No growth in 5 days 06/28/18 13:20 Blood - Peripheral Anaerobic Blood Culture - Final No growth in 5 days 06/28/18 13:20 Blood - Peripheral Aerobic Blood Culture - Final No growth in 5 days 06/28/18 13:20 Blood - Peripheral Anaerobic Blood Culture - Final No growth in 5 days 06/30/18 15:10 Bronchial - Bronchial Gram Stain - Final 06/30/18 15:10 Bronchial - Bronchial Bronchial Culture - Final Heavy growth normal respiratory [facility] Hematology Results 07/04/18 01:17 WBC 11.3 H RBC 4.67 Hgb 14.2 Hct 42.0 MCV 89.9 MCH 30.4 MCHC 33.8 RDW 18.2 H Plt Count 139 L MPV 8.4 Neut % (Auto) 89.4 H Lymph % (Auto) 3.7 L Richardson % (Auto) 6.7 Eos % (Auto) 0.0 Baso % (Auto) 0.2 Neut # (Auto) 10.1 H Lymph # (Auto) 0.4 L Richardson # (Auto) 0.8 Eos # (Auto) 0.0 Baso # (Auto) 0.0 WBC Differential . Differential Comment Auto diff final Lab - Chemistry Results 07/03/18 07/03/18 07/04/18 16:07 20:23 01:17 Sodium 138 Potassium 4.0 Chloride 104 Carbon Dioxide 27.4 Anion Gap 7 BUN 26 H Creatinine 1.06 Estimated GFR 68 L POC Glucose 288 H 233 H Random Glucose 235 H Calcium 7.8 L Magnesium 2.1 07/04/18 07/04/18 07/04/18 03:28 07:52 08:37 Sodium Potassium Chloride Carbon Dioxide Anion Gap BUN Creatinine 0.98 Estimated GFR 74 L POC Glucose 236 H 204 H Random Glucose Calcium Magnesium 07/04/18 07/04/18 07/04/18 13:15 16:21 20:28 Sodium Potassium Chloride Carbon Dioxide Anion Gap BUN Creatinine Estimated GFR POC Glucose 183 H 159 H 241 H Random Glucose Calcium Magnesium 07/05/18 07/05/18 02:16 08:44 Sodium Potassium Chloride Carbon Dioxide Anion Gap BUN Creatinine Estimated GFR POC Glucose 305 H 219 H Random Glucose Calcium Magnesium Imaging: ITS Impressions Chest X-Ray 07/03/18 14:55 CONCLUSION: 1. Mildly improved bilateral lower lobe, left greater than right, airspace consolidation. Physical Exam: PHYSICAL EXAMINATION: GENERAL: Awake and alert. Appears to be having some difficulty breathing. HEENT: The head is atraumatic. Extraocular movements grossly intact. Pupils reactive to light. No icterus. Oropharynx moist, mucosa without lesions. NECK: Supple. No adenopathy. LUNGS: Coarse bilateral rhonchi throughout. HEART: Regular S1 and S2. Irregular rate. No audible murmur. ABDOMEN: Bowel sounds present, obese, soft. No tenderness appreciated. EXTREMITIES: 1+ pitting edema of the lower extremities. No clubbing or cyanosis. SKIN: No diffuse rash. Ecchymosis of the upper extremities and both of the tibials. NEUROLOGIC: No gross focal finding. PSYCHIATRIC: Calm and cooperative. Assessment and Plan - Plan IMPRESSION: 1. Probable hospital-acquired pneumonia. The patient with a known history of resistant bacterial pneumonia in the past. Bronchoscopy revealed mucous plugging and culture preliminary has yeast. Mild improvement in chest x-ray. 2. Orthopnea. 3. Leukocytosis. Continues to look very ill. RECOMMENDATIONS: 1. Continue Primaxin. 2. Continue micafungin. 3. Continue vancomycin. 4. Monitor identity and sensitivity if possible of the yeast in the bronch specimen. 5. Monitor clinical and respiratory status. Antibiotic adjustments depending on culture results of clinical improvement.
--- NOTE | 2018-07-05 17:48 | P.PNPL ---
Subjective Interval history: 78 YOWM with SOB,Pn,parkinson disease Had Bronch, lots of mucous plugs suctioned no Fever Breathing little better Ambulates Still has wheezing Mucomyst does help Physical Exam Vital signs: Vital Signs 07/04/18 20:00 07/04/18 20:57 07/05/18 00:00 Temperature 97.8 F 97.7 F Pulse Rate 67 65 68 Respiratory Rate 18 16 18 Blood Pressure 146/70 H 140/65 Pulse Oximetry 94 L 97 95 07/05/18 03:58 07/05/18 04:00 07/05/18 08:00 Temperature 97.6 F 97.3 F L Pulse Rate 58 L 57 L 63 Respiratory Rate 20 18 16 Blood Pressure 148/88 H 171/82 H Pulse Oximetry 97 98 07/05/18 09:31 07/05/18 12:00 07/05/18 15:08 Temperature 97.8 F Pulse Rate 64 152 H 65 Respiratory Rate 16 16 16 Blood Pressure 98/65 L Pulse Oximetry 94 L 96 07/05/18 16:00 Temperature 97.2 F L Pulse Rate 73 Respiratory Rate 16 Blood Pressure 158/74 H Pulse Oximetry 96 Intake & Output 07/04/18 07/05/18 07/05/18 18:59 06:59 18:59 Intake Total 717.5 / 717.5 717.5 / 717.5 100 / 100 Balance 717.5 / 717.5 717.5 / 717.5 100 / 100 Intake: IV 717.5 / 717.5 717.5 / 717.5 100 / 100 Primaxin Inj 500 MG In NS Inj 200 / 200 200 / 200 100 / 100 100 ML @ 200 mls/hr IV.SIG Q6H [facility] Rx#:[id number] Mycamine Inj 100 MG In NS Inj 0 / 0 100 ML @ 100 mls/hr IV.SIG Q24H [facility] Rx#:[id number] Vancomycin Inj 1,750 MG In NS 517.5 / 517.5 517.5 / 517.5 Inj 500 ML @ 250 mls/hr IV.SIG Q18H [facility] Rx#:[id number] Other: # Voids 1 Date of Last Bowel Movement 07/04/18 07/04/18 GENERAL: WBWn Mild sob SKIN: Warm and dry. HEAD: Normocephalic. EYES: No scleral icterus. No injection or drainage. NECK: Supple, trachea midline. No JVD or lymphadenopathy. CARDIOVASCULAR: Regular rate and rhythm without murmurs, gallops, or rubs. RESPIRATORY: Breath sounds equal bilaterally. No accessory muscle use. Exp rhonchi. GASTROINTESTINAL: Abdomen soft, non-tender, nondistended. MUSCULOSKELETAL: No cyanosis, or edema. BACK: Nontender without obvious deformity. No CVA tenderness. Assessment and Plan - Plan IMPRESSION: 1. Worsening shortness of breath with coarse crackles and possible mucus impaction. However, his chest x-ray shows only mild atelectasis. 2. Possible congestive heart failure, but BNP is only 25. He has orthopnea and paroxysmal nocturnal dyspnea. His recent CT was negative. 3. Hypertension. 4. Chronic obstructive pulmonary disease. 5. Parkinson disease. PLAN: Cont Abx Primaxin, Micafungin, Vanco per ID ID following Aerosol nebs Use Acapella Mucomyst nebs OOB and ambulate Cont Mucomyst nebs
[2018-07-05] MEDS: Enoxaparin Inj 40 MG/0.4 ML Syringe SQ SCH (18:35)
[2018-07-05] MEDS: Temazepam 15 MG Capsule PO SCH (23:22)
[2018-07-06] MEDS: Sucralfate 1 GM Tablet PO SCH ×4 (02:48→17:28)
[2018-07-06] MEDS: Insulin NovoLOG Aspart Correctional Sugar Inj SQ SCH ×5 (02:54→20:43)
[2018-07-06] MEDS: Lipase/Protease/Amylase 24/76/120 DR Capsule PO SCH ×5 (05:59→22:49)
[2018-07-06] MEDS: MethylPREDNISolone Sod Succinate Inj 40 MG/ML Vial IV.PUSH SCH ×3 (06:00→22:49)
[2018-07-06] MEDS: Celecoxib 200 MG Capsule PO SCH ×2 (10:26→20:29)
[2018-07-06] MEDS: Senna/Docusate Sodium 8.6/50 MG Tablet PO SCH ×2 (10:27→20:28)
[2018-07-06] MEDS: Escitalopram 10 MG Tablet PO SCH (10:27)
[2018-07-06] MEDS: Duloxetine 60 MG DR Capsule PO SCH ×2 (10:27→20:42)
[2018-07-06] MEDS: guaiFENesin 600 MG ER Tablet PO SCH ×2 (10:27→20:29)
[2018-07-06] MEDS: Insulin Detemir Inj 1,000 UNIT/10 ML Vial SQ SCH (10:28)
[2018-07-06] MEDS: Lisinopril 20 MG Tablet PO SCH (10:28)
[2018-07-06] MEDS: Budesonide-Formoterol 160/4.5 MCG 6 GM Inhaler INH SCH ×2 (10:30→20:30)
[2018-07-06] MEDS: Vancomycin Inj 1,750 MG in Sodium Chlor 0.9% Inj 500 ML IV.SIG SCH (12:00)
[2018-07-06] MEDS: Vancomycin Inj 1,250 MG in Sodium Chlor 0.9% Inj 250 ML IV.SIG SCH (13:29)
--- NOTE | 2018-07-06 16:59 | P.PNPL ---
Subjective Interval history: 78 YOWM with SOB,Pn,parkinson disease Had Bronch, lots of mucous plugs suctioned no Fever Breathing little better Ambulates Mucomyst does help. at BS Physical Exam Vital signs: Vital Signs 07/05/18 19:59 07/05/18 20:00 07/05/18 20:46 Temperature 97.9 F Pulse Rate 60 65 71 Respiratory Rate 18 18 Blood Pressure 150/74 H Pulse Oximetry 98 96 07/06/18 00:00 07/06/18 04:00 07/06/18 05:42 Temperature 97.9 F 97.6 F Pulse Rate 64 62 62 Respiratory Rate 18 18 18 Blood Pressure 144/67 H 154/83 H Pulse Oximetry 96 97 07/06/18 08:00 07/06/18 08:12 07/06/18 08:33 Temperature 98.3 F Pulse Rate 56 L 75 78 Respiratory Rate 14 Blood Pressure 190/96 H Pulse Oximetry 97 07/06/18 08:41 07/06/18 10:57 07/06/18 12:00 Temperature 98.4 F Pulse Rate 64 82 60 Respiratory Rate 22 17 Blood Pressure 131/67 Pulse Oximetry 96 93 L 07/06/18 15:51 Temperature Pulse Rate 62 Respiratory Rate 20 Blood Pressure Pulse Oximetry Intake & Output 07/05/18 07/06/18 07/06/18 18:59 06:59 18:59 Intake Total 300 / 300 717.5 / 717.5 980.0 / 980.0 Balance 300 / 300 717.5 / 717.5 980.0 / 980.0 Weight 118.6 kg Intake: IV 300 / 300 717.5 / 717.5 980.0 / 980.0 Primaxin Inj 500 MG In NS Inj 200 / 200 200 / 200 100 / 100 100 ML @ 200 mls/hr IV.SIG Q6H [facility] Rx#:[id number] Mycamine Inj 100 MG In NS Inj 100 / 100 100 / 100 100 ML @ 100 mls/hr IV.SIG Q24H [facility] Rx#:[id number] Vancomycin Inj 1,250 MG In NS 262.5 / 262.5 Inj 250 ML @ 250 mls/hr IV.SIG Q12H [facility] Rx#:[id number] Vancomycin Inj 1,750 MG In NS 517.5 / 517.5 517.5 / 517.5 Inj 500 ML @ 250 mls/hr IV.SIG Q18H [facility] Rx#:[id number] Other: # Voids 2 Date of Last Bowel Movement 07/04/18 07/04/18 GENERAL: WBWN, NAD SKIN: Warm and dry. HEAD: Normocephalic. EYES: No scleral icterus. No injection or drainage. NECK: Supple, trachea midline. No JVD or lymphadenopathy. CARDIOVASCULAR: Regular rate and rhythm without murmurs, gallops, or rubs. RESPIRATORY: Breath sounds equal bilaterally. No accessory muscle use. End exp rhonchi GASTROINTESTINAL: Abdomen soft, non-tender, nondistended. MUSCULOSKELETAL: No cyanosis, or edema. BACK: Nontender without obvious deformity. No CVA tenderness. Assessment and Plan - Plan IMPRESSION: 1. Worsening shortness of breath with coarse crackles and possible mucus impaction. However, his chest x-ray shows only mild atelectasis. 2. Possible congestive heart failure, but BNP is only 25. He has orthopnea and paroxysmal nocturnal dyspnea. His recent CT was negative. 3. Hypertension. 4. Chronic obstructive pulmonary disease. 5. Parkinson disease. PLAN: Cont Abx Primaxin, Micafungin, Vanco per ID ID following Aerosol nebs Use Acapella Mucomyst nebs OOB and ambulate Stable on RA DW pt and his .
[2018-07-06] MEDS: Enoxaparin Inj 40 MG/0.4 ML Syringe SQ SCH (17:27)
--- NOTE | 2018-07-06 17:35 | P.PNIM ---
Subjective Interval history: Patient is ambulating around the room without oxygen, "cleaning up". He reports that he has failed outpatient treatment with Levaquin prior to admission and that he has had pneumonia more than once this year with treatments of both Levaquin and azithromycin separately but a pattern of recurrence. Overall the pattern is consistent with resistant bug and he is requesting IV antibiotics in the hospital as well as upon discharge. Physical Exam Vital signs: Vital Signs 07/05/18 19:59 07/05/18 20:00 07/05/18 20:46 Temperature 97.9 F Pulse Rate 60 65 71 Respiratory Rate 18 18 Blood Pressure 150/74 H Pulse Oximetry 98 96 07/06/18 00:00 07/06/18 04:00 07/06/18 05:42 Temperature 97.9 F 97.6 F Pulse Rate 64 62 62 Respiratory Rate 18 18 18 Blood Pressure 144/67 H 154/83 H Pulse Oximetry 96 97 07/06/18 08:00 07/06/18 08:12 07/06/18 08:33 Temperature 98.3 F Pulse Rate 56 L 75 78 Respiratory Rate 14 Blood Pressure 190/96 H Pulse Oximetry 97 07/06/18 08:41 07/06/18 10:57 07/06/18 12:00 Temperature 98.4 F Pulse Rate 64 82 60 Respiratory Rate 22 17 Blood Pressure 131/67 Pulse Oximetry 96 93 L 07/06/18 15:51 07/06/18 16:00 Temperature 97.7 F Pulse Rate 62 71 Respiratory Rate 20 17 Blood Pressure 150/70 H Pulse Oximetry 96 Intake & Output 07/05/18 07/06/18 07/06/18 18:59 06:59 18:59 Intake Total 300 / 300 717.5 / 717.5 980.0 / 980.0 Output Total 230 / 230 Balance 300 / 300 717.5 / 717.5 750.0 / 750.0 Weight 118.6 kg Intake: IV 300 / 300 717.5 / 717.5 980.0 / 980.0 Primaxin Inj 500 MG In NS Inj 200 / 200 200 / 200 100 / 100 100 ML @ 200 mls/hr IV.SIG Q6H [facility] Rx#:[id number] Mycamine Inj 100 MG In NS Inj 100 / 100 100 / 100 100 ML @ 100 mls/hr IV.SIG Q24H [facility] Rx#:[id number] Vancomycin Inj 1,250 MG In NS 262.5 / 262.5 Inj 250 ML @ 250 mls/hr IV.SIG Q12H [facility] Rx#:[id number] Vancomycin Inj 1,750 MG In NS 517.5 / 517.5 517.5 / 517.5 Inj 500 ML @ 250 mls/hr IV.SIG Q18H [facility] Rx#:[id number] Output: Urine 230 / 230 Other: # Voids 2 Date of Last Bowel Movement 07/04/18 07/04/18 07/06/18 # Bowel Movements 1 Narrative: GENERAL: AAOx3, no acute distress, mild dyspnea with exertion SKIN: Warm and dry. No rashes HEAD: Atruamtic, normocephalic. EYES: No scleral icterus. No injection or drainage. ENT: Moist mucous membranes, patent nares, no erythema of oropharynx. NECK: Supple, trachea midline. No JVD or lymphadenopathy. Normal thyroid. CARDIOVASCULAR: Regular rate and rhythm. No murmurs, gallops, or rubs. RESPIRATORY: Scattered congestive sounds with mild crackles, no wheezing. No accessory muscle use. GASTROINTESTINAL: Abdomen soft, non-tender, nondistended, normal active bowel sounds MUSCULOSKELETAL: No cyanosis, or edema. NEURO: CN II-XII grossly intact, no focal deficits, no slurring of speech Results - Labs CBC & Chem 7: 07/04/18 01:17 07/06/18 08:35 Laboratory Results - last 24 hr 07/05/18 07/05/18 07/06/18 18:27 21:31 02:49 Creatinine Estimated GFR POC Glucose 204 H 213 H 322 H 07/06/18 07/06/18 07/06/18 08:02 08:35 13:17 Creatinine 0.93 Estimated GFR 79 L POC Glucose 152 H 210 H Microbiology 06/30/18 15:10 Bronchial Washings - Bronchial Fungal Smear - Final Few budding yeast with pseudohyphae 06/30/18 15:10 Bronchial Washings - Bronchial Fungal Culture - Preliminary Assessment and Plan - Plan 78-year-old male admitted with bilateral pneumonia and respiratory failure Community-acquired pneumonia, complex failure of outpatient therapy History of Acinetobacter infection Primaxin, micafungin, vancomycin per ID. Continue Solumedrol to 40 mg q8h. continue duo nebs, Symbicort, Mucinex Patient will need home oxygen walk test prior to discharge Appreciate infectious disease consult Appreciate pulmonology following Type 2 diabetes Accu-Cheks with sliding scale insulin coverage Diabetic diet Hypertension Better control after increasing lisinopril to 20 mg daily Parkinson's disease Continue Sinemet home dose Depression/ anxiety /chronic pain Continue Lexapro, Aricept, Cymbalta, Lyrica Chronic constipation Continue Linzess DVT prophylaxis Lovenox
--- NOTE | 2018-07-06 20:52 | ECG ---
Date Performed: 07/05/2018 Time Performed: 14:29:14 PTAGE: 78 years EKG: Sinus rhythm LEFT ANTERIOR FASCICULAR BLOCK MINIMAL VOLTAGE CRITERIA FOR LVH, CONSIDER NORMAL VARIANT POSSIBLE SE PTAL MYOCARDIAL INFARCTION , OF INDETERMINATE AGE When compared to previous tracing, rhythm appears t o be sinus And premature ventricular contractions have resolved. ABNORMAL ECG PREVIOUS TRACING : 06/28/2018 12.59 DOCTOR: Maximiliano Peacock Interpretating Date/Time 07/06/2018 20:51:41
[2018-07-06] MEDS: Temazepam 15 MG Capsule PO SCH (22:49)
[2018-07-07] MEDS: Vancomycin Inj 1,250 MG in Sodium Chlor 0.9% Inj 250 ML IV.SIG SCH ×2 (00:08→15:39)
[2018-07-07] MEDS: Sucralfate 1 GM Tablet PO SCH ×3 (00:08→12:00)
[2018-07-07] MEDS: Insulin NovoLOG Aspart Correctional Sugar Inj SQ SCH ×5 (03:29→21:59)
[2018-07-07] MEDS: MethylPREDNISolone Sod Succinate Inj 40 MG/ML Vial IV.PUSH SCH ×3 (05:28→21:59)
[2018-07-07] MEDS: Lipase/Protease/Amylase 24/76/120 DR Capsule PO SCH ×5 (05:28→21:59)
[2018-07-07] MEDS: Insulin Detemir Inj 1,000 UNIT/10 ML Vial SQ SCH (09:00)
[2018-07-07] MEDS: Budesonide-Formoterol 160/4.5 MCG 6 GM Inhaler INH SCH ×2 (09:00→21:55)
[2018-07-07] MEDS: Lisinopril 20 MG Tablet PO SCH (09:00)
[2018-07-07] MEDS: Escitalopram 10 MG Tablet PO SCH (09:00)
[2018-07-07] MEDS: Celecoxib 200 MG Capsule PO SCH ×2 (09:00→21:50)
[2018-07-07] MEDS: Duloxetine 60 MG DR Capsule PO SCH ×2 (09:00→21:50)
[2018-07-07] MEDS: Senna/Docusate Sodium 8.6/50 MG Tablet PO SCH ×2 (09:00→21:50)
[2018-07-07] MEDS: guaiFENesin 600 MG ER Tablet PO SCH ×2 (09:00→21:50)
--- NOTE | 2018-07-07 11:29 | P.PNID ---
Subjective Remarks: Patient notes a little improvement in his breathing. Denies chest pain, fever, chills. Coughing up greenish sputum. The white blood cell count is elevated. He underwent bronchoscopy which revealed thick mucous plugging. Bronchoscopy sputum culture has elizabeth albicans. This is a 78-year-old white male who presented to the emergency department on 06/19/2018 with chest pain. The patient was felt to have a COPD exacerbation. He was treated in the hospital and discharged on 06/22/2018 on inhalers and oral antibiotic. The patient states that after he went home, he was still having difficulty with breathing and was unable to sleep lying flat. He was given IV Levaquin in the hospital and discharged on p.o. Levaquin. Continued to have worsening shortness of breath. The patient notes that he did spent approximately 5 weeks in [place] before returning to [place] approximately 2 weeks ago and after he got to [place] he started feeling sick. Past Medical History: PAST MEDICAL HISTORY: Diabetes mellitus, hypertension, hyperlipidemia, monoclonal gammopathy, Parkinson's disease, chronic left shoulder pain, abscess of the gallbladder, anxiety disorder, CVA, history of bilateral knee replacement, cholecystectomy. Allergies/Adverse Reactions: Allergies sulfamethoxazole [From Bactrim] Allergy (Mild, Verified 06/19/18 12:12) Hives trimethoprim [From Bactrim] Allergy (Mild, Verified 06/19/18 12:12) Hives Objective Vital Signs 07/06/18 12:00 07/06/18 15:51 07/06/18 16:00 Temperature 98.4 F 97.7 F Pulse Rate 60 62 71 Respiratory Rate 17 20 17 Blood Pressure 131/67 150/70 H Pulse Oximetry 93 L 96 07/06/18 19:41 07/06/18 20:00 07/06/18 21:10 Temperature 98.1 F Pulse Rate 66 61 75 Respiratory Rate 18 20 Blood Pressure 151/76 H Pulse Oximetry 97 95 07/07/18 00:00 07/07/18 02:00 07/07/18 03:22 Temperature 97.5 F L Pulse Rate 66 70 Respiratory Rate 18 17 16 Blood Pressure 144/70 H Pulse Oximetry 94 L 07/07/18 03:32 07/07/18 04:00 07/07/18 08:00 Temperature 97.6 F 97.3 F L Pulse Rate 52 L 60 55 L Respiratory Rate 17 18 Blood Pressure 160/71 H 183/88 H Pulse Oximetry 99 07/07/18 08:37 Temperature Pulse Rate 60 Respiratory Rate 12 Blood Pressure Pulse Oximetry 98 Intake & Output 07/06/18 07/07/18 07/07/18 18:59 06:59 18:59 Intake Total 1920.0 / 1920.0 462.5 / 462.5 Output Total 230 / 230 Balance 1690.0 / 1690.0 462.5 / 462.5 Intake: IV 1080.0 / 1080.0 462.5 / 462.5 Primaxin Inj 500 MG In NS Inj 200 / 200 200 / 200 100 ML @ 200 mls/hr IV.SIG Q6H [facility] Rx#:[id number] Mycamine Inj 100 MG In NS Inj 100 / 100 100 ML @ 100 mls/hr IV.SIG Q24H [facility] Rx#:[id number] Vancomycin Inj 1,250 MG In NS 262.5 / 262.5 262.5 / 262.5 Inj 250 ML @ 250 mls/hr IV.SIG Q12H [facility] Rx#:[id number] Vancomycin Inj 1,750 MG In NS 517.5 / 517.5 Inj 500 ML @ 250 mls/hr IV.SIG Q18H [facility] Rx#:[id number] Oral 840 / 840 Output: Urine 230 / 230 Other: # Voids 5 2 Date of Last Bowel Movement 07/06/18 07/06/18 # Bowel Movements 1 06/30/18 15:10 Bronchial Washings - Bronchial Fungal Smear - Final Few budding yeast with pseudohyphae 06/30/18 15:10 Bronchial Washings - Bronchial Fungal Culture - Preliminary Elizabeth albicans Lab - Chemistry Results 07/05/18 07/05/18 07/05/18 12:34 18:27 21:31 Creatinine Estimated GFR POC Glucose 292 H 204 H 213 H 07/06/18 07/06/18 07/06/18 02:49 08:02 08:35 Creatinine 0.93 Estimated GFR 79 L POC Glucose 322 H 152 H 07/06/18 07/06/18 07/06/18 13:17 17:38 20:31 Creatinine Estimated GFR POC Glucose 210 H 167 H 175 H 07/07/18 07/07/18 07/07/18 03:27 06:53 07:19 Creatinine 1.12 Estimated GFR 64 L POC Glucose 207 H 191 H Imaging: ITS Impressions Chest X-Ray 07/03/18 14:55 CONCLUSION: 1. Mildly improved bilateral lower lobe, left greater than right, airspace consolidation. Physical Exam: PHYSICAL EXAMINATION: GENERAL: Awake and alert. HEENT: Extraocular movements grossly intact. Pupils reactive to light. No icterus. Oropharynx: mucosa moist. NECK: Supple. No adenopathy. LUNGS: Bilateral rhonchi throughout. HEART: Regular S1 and S2. Irregular rate. No audible murmur. ABDOMEN: Bowel sounds present, obese, soft. No tenderness. EXTREMITIES: 1+ pitting edema of the lower extremities. No clubbing or cyanosis. SKIN: No diffuse rash. NEUROLOGIC: No gross focal finding. PSYCHIATRIC: Calm and cooperative. Assessment and Plan - Plan IMPRESSION: 1. Probable hospital-acquired pneumonia. The patient with a known history of resistant bacterial pneumonia in the past. Bronchoscopy revealed mucous plugging and culture has Elizabeth. He is coughing up thick yellow. 2. Orthopnea improved. 3. Leukocytosis. Blood cell count lower RECOMMENDATIONS: 1. Continue Primaxin. 2. Continue micafungin. 3. Continue vancomycin. 4. Repeat the sputum culture. 5. Monitor blood cultures. 6. Monitor clinical and respiratory status. 7. Await new sputum culture before making decision on antibiotic adjustment. I have reviewed laboratory data, radiographic studies and microbiologic data in formulation of plans on this patient.
[2018-07-07] MEDS ORDERED: Pharmacy Ordered Lab Info OTHER ONE (12:45)
[2018-07-07] MEDS: Enoxaparin Inj 40 MG/0.4 ML Syringe SQ SCH (16:35)
[2018-07-07 17:14] LABS: Vancomycin,Trough 16.7 mcg/mL (5.0-10.0)
--- NOTE | 2018-07-07 18:34 | P.PNPL ---
Subjective Interval history: 78 YOWM with SOB,Pn,parkinson disease Had Bronch, lots of mucous plugs suctioned no Fever Breathing little better Ambulates Mucomyst does help. Rpt sputum culture ordered Physical Exam Vital signs: Vital Signs 07/06/18 19:41 07/06/18 20:00 07/06/18 21:10 Temperature 98.1 F Pulse Rate 66 61 75 Respiratory Rate 18 20 Blood Pressure 151/76 H Pulse Oximetry 97 95 07/06/18 22:02 07/07/18 00:00 07/07/18 02:00 Temperature 97.5 F L Pulse Rate 74 66 Respiratory Rate 18 17 Blood Pressure 144/70 H Pulse Oximetry 94 L 07/07/18 03:22 07/07/18 03:32 07/07/18 04:00 Temperature 97.6 F Pulse Rate 70 52 L 60 Respiratory Rate 16 17 Blood Pressure 160/71 H Pulse Oximetry 07/07/18 08:00 07/07/18 08:37 07/07/18 10:35 Temperature 97.3 F L Pulse Rate 55 L 60 81 Respiratory Rate 18 12 Blood Pressure 183/88 H Pulse Oximetry 99 98 07/07/18 10:36 07/07/18 10:38 07/07/18 12:00 Temperature 97.2 F L Pulse Rate 211 H 84 77 Respiratory Rate 20 Blood Pressure 142/72 H Pulse Oximetry 97 07/07/18 15:47 07/07/18 16:00 Temperature 98.1 F Pulse Rate 49 L 57 L Respiratory Rate 15 16 Blood Pressure 162/76 H Pulse Oximetry 96 Intake & Output 07/06/18 07/07/18 07/07/18 18:59 06:59 18:59 Intake Total 1920.0 / 1920.0 462.5 / 462.5 2902.5 / 2902.5 Output Total 230 / 230 230 / 230 Balance 1690.0 / 1690.0 462.5 / 462.5 2672.5 / 2672.5 Intake: IV 1080.0 / 1080.0 462.5 / 462.5 562.5 / 562.5 Primaxin Inj 500 MG In NS Inj 200 / 200 200 / 200 200 / 200 100 ML @ 200 mls/hr IV.SIG Q6H [facility] Rx#:[id number] Mycamine Inj 100 MG In NS Inj 100 / 100 100 / 100 100 ML @ 100 mls/hr IV.SIG Q24H [facility] Rx#:[id number] Vancomycin Inj 1,250 MG In NS 262.5 / 262.5 262.5 / 262.5 262.5 / 262.5 Inj 250 ML @ 250 mls/hr IV.SIG Q12H [facility] Rx#:[id number] Vancomycin Inj 1,750 MG In NS 517.5 / 517.5 Inj 500 ML @ 250 mls/hr IV.SIG Q18H [facility] Rx#:[id number] Oral 840 / 840 840 / 840 Tube Feeding 1500 / 1500 Output: Urine 230 / 230 230 / 230 Other: # Voids 5 2 2 Date of Last Bowel Movement 07/06/18 07/06/18 07/06/18 # Bowel Movements 1 1 GENERAL: WBWn NAD SKIN: Warm and dry. HEAD: Normocephalic. EYES: No scleral icterus. No injection or drainage. NECK: Supple, trachea midline. No JVD or lymphadenopathy. CARDIOVASCULAR: Regular rate and rhythm without murmurs, gallops, or rubs. RESPIRATORY: Breath sounds equal bilaterally. No accessory muscle use. GASTROINTESTINAL: Abdomen soft, non-tender, nondistended. MUSCULOSKELETAL: No cyanosis, or edema. BACK: Nontender without obvious deformity. No CVA tenderness. Assessment and Plan - Plan IMPRESSION: 1. Worsening shortness of breath with coarse crackles and possible mucus impaction. However, his chest x-ray shows only mild atelectasis. 2. Possible congestive heart failure, but BNP is only 25. He has orthopnea and paroxysmal nocturnal dyspnea. His recent CT was negative. 3. Hypertension. 4. Chronic obstructive pulmonary disease. 5. Parkinson disease. PLAN: Cont Abx Primaxin, Micafungin, Vanco per ID ID following Aerosol nebs Use Acapella Mucomyst nebs OOB and ambulate Stable on RA Check rpt sp culture.
--- NOTE | 2018-07-07 18:35 | P.PNIM ---
Subjective Interval history: Patient is resting in bed today with oxygen use, he denies shortness of breath. He had a long run of V. tach earlier this morning, lasting greater than 40 beats. Cardiology was consulted following the first 6 run of V. tach, but on- call cardiology recommended that he receive a consult from his primary odd jobs day worker Dr. Somers. Physical Exam Vital signs: Vital Signs 07/06/18 19:41 07/06/18 20:00 07/06/18 21:10 Temperature 98.1 F Pulse Rate 66 61 75 Respiratory Rate 18 20 Blood Pressure 151/76 H Pulse Oximetry 97 95 07/06/18 22:02 07/07/18 00:00 07/07/18 02:00 Temperature 97.5 F L Pulse Rate 74 66 Respiratory Rate 18 17 Blood Pressure 144/70 H Pulse Oximetry 94 L 07/07/18 03:22 07/07/18 03:32 07/07/18 04:00 Temperature 97.6 F Pulse Rate 70 52 L 60 Respiratory Rate 16 17 Blood Pressure 160/71 H Pulse Oximetry 07/07/18 08:00 07/07/18 08:37 07/07/18 10:35 Temperature 97.3 F L Pulse Rate 55 L 60 81 Respiratory Rate 18 12 Blood Pressure 183/88 H Pulse Oximetry 99 98 07/07/18 10:36 07/07/18 10:38 07/07/18 12:00 Temperature 97.2 F L Pulse Rate 211 H 84 77 Respiratory Rate 20 Blood Pressure 142/72 H Pulse Oximetry 97 07/07/18 15:47 07/07/18 16:00 Temperature 98.1 F Pulse Rate 49 L 57 L Respiratory Rate 15 16 Blood Pressure 162/76 H Pulse Oximetry 96 Intake & Output 07/06/18 07/07/18 07/07/18 18:59 06:59 18:59 Intake Total 1920.0 / 1920.0 462.5 / 462.5 2902.5 / 2902.5 Output Total 230 / 230 230 / 230 Balance 1690.0 / 1690.0 462.5 / 462.5 2672.5 / 2672.5 Intake: IV 1080.0 / 1080.0 462.5 / 462.5 562.5 / 562.5 Primaxin Inj 500 MG In NS Inj 200 / 200 200 / 200 200 / 200 100 ML @ 200 mls/hr IV.SIG Q6H [facility] Rx#:[id number] Mycamine Inj 100 MG In NS Inj 100 / 100 100 / 100 100 ML @ 100 mls/hr IV.SIG Q24H [facility] Rx#:[id number] Vancomycin Inj 1,250 MG In NS 262.5 / 262.5 262.5 / 262.5 262.5 / 262.5 Inj 250 ML @ 250 mls/hr IV.SIG Q12H [facility] Rx#:[id number] Vancomycin Inj 1,750 MG In NS 517.5 / 517.5 Inj 500 ML @ 250 mls/hr IV.SIG Q18H [facility] Rx#:[id number] Oral 840 / 840 840 / 840 Tube Feeding 1500 / 1500 Output: Urine 230 / 230 230 / 230 Other: # Voids 5 2 2 Date of Last Bowel Movement 07/06/18 07/06/18 07/06/18 # Bowel Movements 1 1 Narrative: GENERAL: AAOx3, no acute distress, mild dyspnea with exertion SKIN: Warm and dry. No rashes HEAD: Atruamtic, normocephalic. EYES: No scleral icterus. No injection or drainage. ENT: Moist mucous membranes, patent nares, no erythema of oropharynx. NECK: Supple, trachea midline. No JVD or lymphadenopathy. Normal thyroid. CARDIOVASCULAR: Regular rate and rhythm. No murmurs, gallops, or rubs. RESPIRATORY: Scattered congestive sounds with mild crackles, no wheezing. No accessory muscle use. GASTROINTESTINAL: Abdomen soft, non-tender, nondistended, normal active bowel sounds MUSCULOSKELETAL: No cyanosis, or edema. NEURO: CN II-XII grossly intact, no focal deficits, no slurring of speech Results - Labs CBC & Chem 7: 07/04/18 01:17 07/07/18 15:40 Laboratory Results - last 24 hr 07/06/18 07/07/18 07/07/18 20:31 03:27 06:53 BUN Creatinine 1.12 Estimated GFR 64 L POC Glucose 175 H 207 H Vancomycin Trough 07/07/18 07/07/18 07/07/18 07:19 14:58 15:40 BUN 27 H Creatinine Estimated GFR POC Glucose 191 H 185 H Vancomycin Trough 16.7 H Microbiology 06/30/18 15:10 Bronchial Washings - Bronchial Acid Fast Bacilli Smear - Final No acid fast bacilli seen 06/30/18 15:10 Bronchial Washings - Bronchial Mycobacterial Culture - Preliminary No growth in 1 week 06/30/18 15:10 Bronchial Washings - Bronchial Fungal Smear - Final Few budding yeast with pseudohyphae 06/30/18 15:10 Bronchial Washings - Bronchial Fungal Culture - Preliminary Elizabeth albicans Assessment and Plan - Plan 78-year-old male admitted with bilateral pneumonia and respiratory failure Community-acquired pneumonia, complex failure of outpatient therapy History of Acinetobacter infection Primaxin, micafungin, vancomycin per ID. Continue Solumedrol to 40 mg q8h. continue duo nebs, Symbicort, Mucinex Patient will need home oxygen walk test prior to discharge Plan for PICC line discharge with IV antibiotics per infectious disease Infectious disease requests results on most recent culture prior to deciding about final antibiotic regiment Appreciate infectious disease consult Appreciate pulmonology following Periodic ventricular tachycardia He had a greater than 40 beat run of tachycardia this morning while ambulating around his room He denies any symptoms from this aside from his baseline shortness of breath with activity related to pneumonia Likely his heart rhythm exacerbated by various medications including albuterol, vancomycin, steroids On-call odd jobs day worker was consulted by overnight care team but they deferred to his primary odd jobs day worker Begin metoprolol 12.5 mg twice daily Consult his primary odd jobs day worker, Dr. Somers Type 2 diabetes Accu-Cheks with sliding scale insulin coverage Diabetic diet Hypertension Better control after increasing lisinopril to 20 mg daily Parkinson's disease Continue Sinemet home dose Depression/ anxiety /chronic pain Continue Lexapro, Aricept, Cymbalta, Lyrica Chronic constipation Continue Linzess DVT prophylaxis Lovenox
[2018-07-07] MEDS: Metoprolol Tartrate 25 MG Tablet PO SCH (21:51)
[2018-07-08] MEDS: Sucralfate 1 GM Tablet PO SCH ×6 (00:07→23:24)
[2018-07-08] MEDS: Temazepam 15 MG Capsule PO SCH ×2 (00:07→21:27)
[2018-07-08] MEDS: Vancomycin Inj 1,250 MG in Sodium Chlor 0.9% Inj 250 ML IV.SIG SCH (00:09)
[2018-07-08] MEDS: Insulin NovoLOG Aspart Correctional Sugar Inj SQ SCH ×5 (04:07→21:28)
[2018-07-08] MEDS: MethylPREDNISolone Sod Succinate Inj 40 MG/ML Vial IV.PUSH SCH ×3 (05:23→21:26)
[2018-07-08] MEDS: Lipase/Protease/Amylase 24/76/120 DR Capsule PO SCH ×5 (05:23→21:26)
[2018-07-08 06:25] LABS: Hematocrit 40.5 % (39.0-51.0); Hemoglobin 13.9 gm/dL (13.0-17.0); Mean Corpuscular HGB Conc 34.3 % (32.0-36.0); Mean Corpuscular Hemoglobin 30.7 pg (27.0-34.0); Mean Corpuscular Volume 89.5 fL (80.0-100.0); Mean Platelet Volume 8.8 fL (7.0-11.0); Platelet Count 146 th/mm3 (150-450); Red Blood Count 4.52 mil/mm3 (4.50-5.90); Red Cell Distribution Width 17.8 % (11.6-17.2); White Blood Count 6.3 th/mm3 (4.0-11.0)
[2018-07-08 06:54] LABS: Calcium 7.6 mg/dL (8.5-10.1); Carbon Dioxide 28.3 meq/L (21.0-32.0); Potassium 4.2 meq/L (3.5-5.1)
[2018-07-08] MEDS: Celecoxib 200 MG Capsule PO SCH ×2 (09:14→21:27)
[2018-07-08] MEDS: guaiFENesin 600 MG ER Tablet PO SCH ×2 (09:14→21:27)
[2018-07-08] MEDS: Escitalopram 10 MG Tablet PO SCH (09:17)
[2018-07-08] MEDS: Lisinopril 20 MG Tablet PO SCH (09:18)
[2018-07-08] MEDS: Senna/Docusate Sodium 8.6/50 MG Tablet PO SCH ×2 (09:18→21:27)
[2018-07-08] MEDS: Insulin Detemir Inj 1,000 UNIT/10 ML Vial SQ SCH (09:19)
[2018-07-08] MEDS: Duloxetine 60 MG DR Capsule PO SCH ×2 (09:19→21:27)
[2018-07-08] MEDS: Metoprolol Tartrate 25 MG Tablet PO SCH ×2 (09:21→21:28)
[2018-07-08] MEDS: Budesonide-Formoterol 160/4.5 MCG 6 GM Inhaler INH SCH ×2 (09:21→21:29)
--- NOTE | 2018-07-08 11:28 | P.PNPL ---
Subjective Interval history: 78 YOWM with SOB,Pn,parkinson disease Had Bronch, lots of mucous plugs suctioned no Fever Breathing little better Ambulates Mucomyst does help. Weaned to RA Physical Exam Vital signs: Vital Signs 07/07/18 12:00 07/07/18 15:47 07/07/18 16:00 Temperature 97.2 F L 98.1 F Pulse Rate 77 49 L 57 L Respiratory Rate 20 15 16 Blood Pressure 142/72 H 162/76 H Pulse Oximetry 97 96 07/07/18 20:00 07/07/18 20:30 07/07/18 21:05 Temperature 97.9 F Pulse Rate 63 66 60 Respiratory Rate 18 Blood Pressure 137/75 Pulse Oximetry 95 07/07/18 21:23 07/08/18 00:00 07/08/18 00:30 Temperature 98.0 F Pulse Rate 80 60 54 L Respiratory Rate 21 18 Blood Pressure 139/73 Pulse Oximetry 96 94 L 07/08/18 02:38 07/08/18 03:57 07/08/18 04:00 Temperature 97.9 F Pulse Rate 58 L 55 L Respiratory Rate 17 16 18 Blood Pressure 184/80 H Pulse Oximetry 96 07/08/18 04:30 07/08/18 08:00 07/08/18 09:21 Temperature 97.3 F L Pulse Rate 53 L 59 L 81 Respiratory Rate 16 20 Blood Pressure 154/75 H Pulse Oximetry 97 Intake & Output 07/07/18 07/08/18 07/08/18 18:59 06:59 18:59 Intake Total 2902.5 / 2902.5 462.5 / 462.5 Output Total 230 / 230 Balance 2672.5 / 2672.5 462.5 / 462.5 Intake: IV 562.5 / 562.5 462.5 / 462.5 Primaxin Inj 500 MG In NS Inj 200 / 200 200 / 200 100 ML @ 200 mls/hr IV.SIG Q6H [facility] Rx#:[id number] Mycamine Inj 100 MG In NS Inj 100 / 100 100 ML @ 100 mls/hr IV.SIG Q24H [facility] Rx#:[id number] Vancomycin Inj 1,250 MG In NS 262.5 / 262.5 262.5 / 262.5 Inj 250 ML @ 250 mls/hr IV.SIG Q12H [facility] Rx#:[id number] Oral 840 / 840 Tube Feeding 1500 / 1500 Output: Urine 230 / 230 Other: # Voids 2 3 Date of Last Bowel Movement 07/06/18 07/06/18 # Bowel Movements 1 GENERAL: WBWN,NAD SKIN: Warm and dry. HEAD: Normocephalic. EYES: No scleral icterus. No injection or drainage. NECK: Supple, trachea midline. No JVD or lymphadenopathy. CARDIOVASCULAR: Regular rate and rhythm without murmurs, gallops, or rubs. RESPIRATORY: Breath sounds equal bilaterally. No accessory muscle use. GASTROINTESTINAL: Abdomen soft, non-tender, nondistended. MUSCULOSKELETAL: No cyanosis, or edema. BACK: Nontender without obvious deformity. No CVA tenderness. Assessment and Plan - Plan IMPRESSION: 1. Worsening shortness of breath with coarse crackles and possible mucus impaction. However, his chest x-ray shows only mild atelectasis. 2. Possible congestive heart failure, but BNP is only 25. He has orthopnea and paroxysmal nocturnal dyspnea. His recent CT was negative. 3. Hypertension. 4. Chronic obstructive pulmonary disease. 5. Parkinson disease. PLAN: Cont Abx Primaxin, Micafungin, Vanco per ID ID following Aerosol nebs Use Acapella Mucomyst nebs OOB and ambulate Stable from pulm standpoint Available prn over weekend.
--- NOTE | 2018-07-08 11:37 | P.PNID ---
Subjective Remarks: Patient notes that he still has some problems with the breathing. He notes that it improves with breathing treatment. Afebrile Coughing up greenish sputum. The white blood cell count is now down to normal. New sputum culture pending. He underwent bronchoscopy which revealed thick mucous plugging. Bronchoscopy sputum culture has elizabeth albicans. This is a 78-year-old white male who presented to the emergency department on 06/19/2018 with chest pain. The patient was felt to have a COPD exacerbation. He was treated in the hospital and discharged on 06/22/2018 on inhalers and oral antibiotic. The patient states that after he went home, he was still having difficulty with breathing and was unable to sleep lying flat. He was given IV Levaquin in the hospital and discharged on p.o. Levaquin. Continued to have worsening shortness of breath. The patient notes that he did spent approximately 5 weeks in [place] before returning to [place] approximately 2 weeks ago and after he got to [place] he started feeling sick. Past Medical History: PAST MEDICAL HISTORY: Diabetes mellitus, hypertension, hyperlipidemia, monoclonal gammopathy, Parkinson's disease, chronic left shoulder pain, abscess of the gallbladder, anxiety disorder, CVA, history of bilateral knee replacement, cholecystectomy. Allergies/Adverse Reactions: Allergies sulfamethoxazole [From Bactrim] Allergy (Mild, Verified 06/19/18 12:12) Hives trimethoprim [From Bactrim] Allergy (Mild, Verified 06/19/18 12:12) Hives Objective Vital Signs 07/07/18 12:00 07/07/18 15:47 07/07/18 16:00 Temperature 97.2 F L 98.1 F Pulse Rate 77 49 L 57 L Respiratory Rate 20 15 16 Blood Pressure 142/72 H 162/76 H Pulse Oximetry 97 96 07/07/18 20:00 07/07/18 20:30 07/07/18 21:05 Temperature 97.9 F Pulse Rate 63 66 60 Respiratory Rate 18 Blood Pressure 137/75 Pulse Oximetry 95 07/07/18 21:23 07/08/18 00:00 07/08/18 00:30 Temperature 98.0 F Pulse Rate 80 60 54 L Respiratory Rate 21 18 Blood Pressure 139/73 Pulse Oximetry 96 94 L 07/08/18 02:38 07/08/18 03:57 07/08/18 04:00 Temperature 97.9 F Pulse Rate 58 L 55 L Respiratory Rate 17 16 18 Blood Pressure 184/80 H Pulse Oximetry 96 07/08/18 04:30 07/08/18 08:00 07/08/18 09:21 Temperature 97.3 F L Pulse Rate 53 L 59 L 81 Respiratory Rate 16 20 Blood Pressure 154/75 H Pulse Oximetry 97 Intake & Output 07/07/18 07/08/18 07/08/18 18:59 06:59 18:59 Intake Total 2902.5 / 2902.5 462.5 / 462.5 100 / 100 Output Total 230 / 230 Balance 2672.5 / 2672.5 462.5 / 462.5 100 / 100 Intake: IV 562.5 / 562.5 462.5 / 462.5 100 / 100 Primaxin Inj 500 MG In NS Inj 200 / 200 200 / 200 100 / 100 100 ML @ 200 mls/hr IV.SIG Q6H [facility] Rx#:[id number] Mycamine Inj 100 MG In NS Inj 100 / 100 100 ML @ 100 mls/hr IV.SIG Q24H [facility] Rx#:[id number] Vancomycin Inj 1,250 MG In NS 262.5 / 262.5 262.5 / 262.5 Inj 250 ML @ 250 mls/hr IV.SIG Q12H [facility] Rx#:[id number] Oral 840 / 840 Tube Feeding 1500 / 1500 Output: Urine 230 / 230 Other: # Voids 2 3 Date of Last Bowel Movement 07/06/18 07/06/18 # Bowel Movements 1 06/30/18 15:10 Bronchial Washings - Bronchial Acid Fast Bacilli Smear - Final No acid fast bacilli seen 06/30/18 15:10 Bronchial Washings - Bronchial Mycobacterial Culture - Preliminary No growth in 1 week 06/30/18 15:10 Bronchial Washings - Bronchial Fungal Smear - Final Few budding yeast with pseudohyphae 06/30/18 15:10 Bronchial Washings - Bronchial Fungal Culture - Preliminary Elizabeth albicans Lab - Hematology Results 07/08/18 05:42 WBC 6.3 RBC 4.52 Hgb 13.9 Hct 40.5 MCV 89.5 MCH 30.7 MCHC 34.3 RDW 17.8 H Plt Count 146 L MPV 8.8 Lab - Chemistry Results 10/17/18 10/17/18 10/17/18 13:17 17:38 20:31 Sodium Potassium Chloride Carbon Dioxide Anion Gap BUN Creatinine Estimated GFR POC Glucose 210 H 167 H 175 H Random Glucose Calcium 07/07/18 07/07/18 07/07/18 03:27 06:53 07:19 Sodium Potassium Chloride Carbon Dioxide Anion Gap BUN Creatinine 1.12 Estimated GFR 64 L POC Glucose 207 H 191 H Random Glucose Calcium 07/07/18 07/07/18 07/07/18 14:58 15:40 21:55 Sodium Potassium Chloride Carbon Dioxide Anion Gap BUN 27 H Creatinine Estimated GFR POC Glucose 185 H 272 H Random Glucose Calcium 07/08/18 07/08/18 07/08/18 04:05 05:42 08:41 Sodium 139 Potassium 4.2 Chloride 104 Carbon Dioxide 28.3 Anion Gap 7 BUN 26 H Creatinine 1.01 Estimated GFR 72 L POC Glucose 173 H 135 H Random Glucose 149 H Calcium 7.6 L Imaging: ITS Impressions Chest X-Ray 07/03/18 14:55 CONCLUSION: 1. Mildly improved bilateral lower lobe, left greater than right, airspace consolidation. Physical Exam: PHYSICAL EXAMINATION: GENERAL: Awake and alert. HEENT: Extraocular movements grossly intact. Pupils reactive to light. No icterus. Oropharynx: mucosa moist. NECK: Supple. No adenopathy. LUNGS: Bilateral rhonchi throughout. HEART: Regular S1 and S2. Irregular rate. No audible murmur. ABDOMEN: Bowel sounds present, obese, soft. No tenderness. EXTREMITIES: 1+ pitting edema of the lower extremities. No clubbing or cyanosis. SKIN: No diffuse rash. NEUROLOGIC: No gross focal finding. PSYCHIATRIC: Calm and cooperative. Assessment and Plan - Plan IMPRESSION: 1. Probable hospital-acquired pneumonia. The patient with a known history of resistant bacterial pneumonia in the past. Bronchoscopy revealed mucous plugging and culture has Elizabeth. He is coughing up thick yellow. 2. Orthopnea improved. 3. Leukocytosis. Blood cell count lower. RECOMMENDATIONS: 1. Continue Primaxin. 2. Continue micafungin. 3. Stop vancomycin. 4. Monitor new sputum culture 5. Monitor clinical and respiratory status. 7. Await new sputum culture before making decision on antibiotic adjustment. Continue the Primaxin and micafungin over the weekend. I have reviewed laboratory data, radiographic studies and microbiologic data in formulation of plans on this patient.
[2018-07-08] MEDS: Enoxaparin Inj 40 MG/0.4 ML Syringe SQ SCH (16:25)
--- NOTE | 2018-07-08 16:29 | P.CONCA ---
History of Present Illness Primary Care Provider: UNKNOWN Chief Complaint: ? Ventricular arrythmia History of Present Illness: Very pleasant 78 year old gentleman with a history of COPD admitted for complex CAP who has been hospitalized since 06/28. He follows with Dr. Somers and has gone extensive cardiac workup including stress testing and a TTE. Yesterday am while he was cleaning himself artificat was detected and there was concern for sustained VT. Cardiology was consulted. In review, he does have infrequent PVC and a few beats of NSVT. During the episode, the patient states that he was completely asymptomatic. No CP/SOB currently. Review of Systems All other systems reviewed negative except as stated in HPI PMFSH - History History Provided By: Patient - Medical History Medical History: Medical History (Last Reviewed 06/29/18 @ 11:59 by Isabell Wills) Anxiety Constipation Depression GERD (gastroesophageal reflux disease) Multiple drug resistant Acinetobacter infection Abscess of gallbladder Cellulitis Chronic left shoulder pain Dementia Diabetes HLD (hyperlipidemia) HTN (hypertension) Headache Monoclonal gammopathy Parkinson disease Spinal cord stimulator status Stroke - Surgical History Surgical History: Surgical History (Last Reviewed 06/29/18 @ 11:59 by Isabell Wills) History of bronchoscopy History of bilateral knee replacement Hx of cholecystectomy Total knee replacement status - Family History Family History: Family History (Last Reviewed 06/28/18 @ 16:49 by Yoshi Ambrocio DO) Father Emphysema lung - Tobacco History Second Hand Smoke Exposure: Yes Smoking Status: Former smoker - Alcohol History How Often Do You Have a Drink Containing Alcohol: Unable to Obtain - Substance Use History Substance History: No History of Abuse - Travel History History of Recent Travel: No Recent Travel in the [place] Within the Last 8 Weeks: No Recent Travel Out of the Country Within the Last 8 Weeks: No - Immunization History Tetanus Immunization: Unsure Medications and Allergies Active Medications: Active Medications Acetaminophen (Tylenol) 650 mg PO Q4H PRN PRN Reason: Temp > 100.4 Al Hydroxide/Mg Hydroxide (Milk Of Quita Liq) 30 ml PO Q12H PRN PRN Reason: Mild Constipation Albuterol (Albuterol Neb (Prn)) 2.5 mg NEB Q2HR NEB PRN PRN Reason: SHORTNESS OF BREATH Last Admin: 07/08/18 03:53 Dose: 2.5 mg Lipase/Protease/Amylase (Steve Sales 24/76/120) 1 cap PO 5 TIMES A DAY [facility] Last Admin: 07/08/18 13:53 Dose: 1 cap Aspirin (Ecotrin) 81 mg PO DAILY [facility] Last Admin: 07/08/18 09:19 Dose: 81 mg Atorvastatin Calcium (Lipitor) 80 mg PO DAILY@1800 [facility] Last Admin: 07/07/18 17:29 Dose: 80 mg Bisacodyl (Dulcolax Supp) 10 mg RECTAL DAILY PRN PRN Reason: SEVERE CONSITIPATION Budesonide/Formoterol Fumarate (Symbicort 160/4.5 Mcg Inh) 2 puff INH BID [facility] Last Admin: 07/08/18 09:21 Dose: 2 puff Carbidopa/Levodopa (Sinemet 25/100 Mg) 1 tab PO TID [facility] Last Admin: 07/08/18 12:46 Dose: 1 tab Celecoxib (Celebrex) 200 mg PO BID [facility] Last Admin: 07/08/18 09:14 Dose: 200 mg Dextrose (D50w Vial) 50 ml IV.PUSH UNSCH PRN PRN Reason: PER HYPOGLYCEMIA PROTOCOL Duloxetine HCl (Cymbalta) 60 mg PO BID [facility] Last Admin: 07/08/18 09:19 Dose: 60 mg Enoxaparin Sodium (Lovenox Inj) 40 mg SQ Q24H [facility] Last Admin: 07/08/18 16:25 Dose: 40 mg Escitalopram Oxalate (Lexapro) 10 mg PO DAILY [facility] Last Admin: 07/08/18 09:17 Dose: 10 mg Glipizide (Glucotrol) 5 mg PO BID [facility] Last Admin: 06/29/18 20:51 Dose: 5 mg Glucagon (Glucagon Inj) 1 mg OTHER PRN PRN PRN Reason: for Hypoglycemia Protocol Guaifenesin (Mucinex Er) 600 mg PO BID [facility] Last Admin: 07/08/18 09:14 Dose: 600 mg Hydromorphone HCl (Dilaudid) 2 mg PO Q4H PRN PRN Reason: Pain 7 to 10 Last Admin: 07/08/18 00:08 Dose: 2 mg Hydromorphone HCl (Dilaudid) 1 mg PO Q4H PRN PRN Reason: Pain 3 to 6 Imipenem/Cilastatin Sodium 500 (mg/ Sodium Chloride) 100 mls @ 200 mls/hr IV.SIG Q6H [facility] Last Admin: 07/08/18 16:25 Dose: 200 mls/hr Micafungin Sodium 100 mg/ (Sodium Chloride) 100 mls @ 100 mls/hr IV.SIG Q24H [facility] Last Infusion: 07/08/18 15:17 Dose: Infused Insulin Aspart (Novolog Insulin Correctional Sugar Inj) 0 unit SQ ACHS AND 3AM [facility]; Protocol Last Admin: 07/08/18 12:46 Dose: 4 unit Insulin Detemir (Levemir Inj) 10 unit SQ DAILY [facility] Last Admin: 07/08/18 09:19 Dose: 10 unit Ipratropium Gibson (Atrovent Neb) 0.5 mg NEB Q6HR NEB PRN PRN Reason: SHORTNESS OF BREATH Last Admin: 07/08/18 15:27 Dose: 0.5 mg Lactulose (Lactulose Liq) 30 ml PO DAILY PRN PRN Reason: SEVERE CONSITIPATION Last Admin: 07/03/18 08:55 Dose: 30 ml Lisinopril (Prinivil) 20 mg PO DAILY [facility] Last Admin: 07/08/18 09:18 Dose: 20 mg Methylprednisolone Sodium Succinate (Solumedrol Inj) 40 mg IV.PUSH Q8HR [facility] Last Admin: 07/08/18 13:53 Dose: 40 mg Metoprolol Tartrate (Lopressor) 12.5 mg PO BID [facility] Last Admin: 07/08/18 09:21 Dose: Not Given Miscellaneous (Pill Splitter) 1 each OTHER UNSCH [facility] Multivitamins (Theragran) 1 tab PO DAILY [facility] Last Admin: 07/08/18 09:19 Dose: 1 tab Ondansetron HCl (Zofran Inj) 4 mg IV.PUSH Q6H PRN PRN Reason: NAUSEA OR VOMITING Pantoprazole Sodium (Protonix) 40 mg PO BID [facility] Last Admin: 07/08/18 09:14 Dose: 40 mg Pt:Linzess 145 Mcg 0 each PO DAILY [facility] Last Admin: 06/28/18 17:29 Dose: Not Given Pregabalin (Lyrica) 100 mg PO BID [facility] Last Admin: 07/08/18 09:18 Dose: 100 mg Senna/Docusate Sodium (Mili-Colace) 1 tab PO BID [facility] Last Admin: 07/08/18 09:18 Dose: 1 tab Sennosides (Senokot) 17.2 mg PO Q12H PRN PRN Reason: Moderate Constipation Sodium Chloride (Ns Flush) 2 ml IV.FLUSH BID [facility] Last Admin: 07/08/18 09:20 Dose: 2 ml Sodium Chloride (Ns Flush) 2 ml IV.FLUSH PRN PRN PRN Reason: FLUSH AFTER USING IV ACCESS Sucralfate (Carafate) 1 gm PO Q6H [facility] Last Admin: 07/08/18 12:46 Dose: 1 gm Sumatriptan Succinate (Imitrex) 100 mg PO BID PRN PRN Reason: Migraine Headache Temazepam (Restoril) 30 mg PO HS [facility] Last Admin: 07/08/18 00:07 Dose: 30 mg Allergies Allergy/AdvReac Type Severity Reaction Status Date / Time sulfamethoxazole Allergy Mild Hives Verified 06/19/18 12:12 [From Bactrim] trimethoprim [From Bactrim] Allergy Mild Hives Verified 06/19/18 12:12 Home Medications Medication Instructions Recorded Confirmed Type Lexapro 10 mg PO DAILY 06/19/18 06/28/18 History aspirin 81 mg PO DAILY 06/19/18 06/28/18 History carbidopa-levodopa [Sinemet] 1 tab PO TID 06/19/18 06/28/18 History celecoxib [Celebrex] 200 mg PO BID 06/19/18 06/28/18 History diclofenac sodium 1 applicatio TOPICAL QID 06/19/18 06/28/18 History donepezil [Aricept] 10 mg PO QPM 06/19/18 06/28/18 History duloxetine [Cymbalta] 60 mg PO BID 06/19/18 06/28/18 History escitalopram oxalate [Lexapro] 10 mg PO DAILY 06/19/18 06/28/18 History esomeprazole magnesium [Nexium] 40 mg PO BID 06/19/18 06/28/18 History glipizide 5 mg PO BID 06/19/18 06/28/18 History linaclotide [Linzess] 145 mcg PO DAILY 06/19/18 06/28/18 History shepyg-[id number] [Zenpep] 1 cap PO 5 TIMES A DAY 06/19/18 06/28/18 History lisinopril 10 mg PO DAILY 06/19/18 06/28/18 History multivitamin 1 tab PO QAM 06/19/18 06/28/18 History pregabalin [Lyrica] 100 mg PO BID 06/19/18 06/28/18 History rosuvastatin [Crestor] 40 mg PO QPM 06/19/18 06/28/18 History sildenafil [Viagra] 100 mg PO DAILY PRN 06/19/18 06/28/18 History sucralfate [Carafate] 1 g PO Q6H 06/19/18 06/28/18 History sumatriptan succinate 100 mg PO Q2-4H PRN 06/19/18 06/28/18 History temazepam [Restoril] 30 mg PO HS 06/19/18 06/28/18 History Exam Vital signs: Vital Signs 07/07/18 20:00 07/07/18 20:30 07/07/18 21:05 Temperature 97.9 F Pulse Rate 63 66 60 Respiratory Rate 18 Blood Pressure 137/75 Pulse Oximetry 95 07/07/18 21:23 07/08/18 00:00 07/08/18 00:30 Temperature 98.0 F Pulse Rate 80 60 54 L Respiratory Rate 21 18 Blood Pressure 139/73 Pulse Oximetry 96 94 L 07/08/18 02:38 07/08/18 03:57 07/08/18 04:00 Temperature 97.9 F Pulse Rate 58 L 55 L Respiratory Rate 17 16 18 Blood Pressure 184/80 H Pulse Oximetry 96 07/08/18 04:30 07/08/18 08:00 07/08/18 09:00 Temperature 97.3 F L Pulse Rate 53 L 59 L 53 L Respiratory Rate 16 Blood Pressure 154/75 H Pulse Oximetry 94 L 07/08/18 09:21 07/08/18 12:00 07/08/18 15:29 Temperature 97.6 F Pulse Rate 81 57 L 57 L Respiratory Rate 20 18 18 Blood Pressure 149/71 H Pulse Oximetry 94 L Intake & Output 07/07/18 07/08/18 07/08/18 18:59 06:59 18:59 Intake Total 2902.5 / 2902.5 462.5 / 462.5 200 / 200 Output Total 230 / 230 Balance 2672.5 / 2672.5 462.5 / 462.5 200 / 200 Intake: IV 562.5 / 562.5 462.5 / 462.5 200 / 200 Primaxin Inj 500 MG In NS Inj 200 / 200 200 / 200 100 / 100 100 ML @ 200 mls/hr IV.SIG Q6H [facility] Rx#:[id number] Mycamine Inj 100 MG In NS Inj 100 / 100 100 / 100 100 ML @ 100 mls/hr IV.SIG Q24H [facility] Rx#:[id number] Vancomycin Inj 1,250 MG In NS 262.5 / 262.5 262.5 / 262.5 Inj 250 ML @ 250 mls/hr IV.SIG Q12H [facility] Rx#:[id number] Oral 840 / 840 Tube Feeding 1500 / 1500 Output: Urine 230 / 230 Other: # Voids 2 3 Date of Last Bowel Movement 07/06/18 07/06/18 # Bowel Movements 1 - Constitutional no acute distress - Routine HEENT Exam Head: Present: normocephalic Eye: Present: EOMI ENT: Present: mucous membranes moist - Routine Neck Exam Present: supple. Absent: JVD - Routine Chest/Breast/Axilla Exam Chest wall: Absent: tenderness - Routine Respiratory Exam Present: decreased breath sounds - Routine Cardiovascular Exam Present: RRR, S1, S2 - Routine Abdominal Exam Present: soft, normoactive bowel sounds. Absent: tenderness - Routine Extremities Exam Absent: edema - Routine Skin Exam Present: intact - Routine Neurological Exam Present: alert, oriented X3, CN II-XII intact - Routine Psychiatric Exam Present: normal affect Results 07/08/18 05:42 07/08/18 05:42 CBC 07/08/18 Range/Units 05:42 WBC 6.3 (4.0-11.0) th/mm3 RBC 4.52 (4.50-5.90) mil/mm3 Hgb 13.9 (13.0-17.0) gm/dL Hct 40.5 (39.0-51.0) % Plt Count 146 L (150-450) th/mm3 Comprehensive Metabolic Panel 07/07/18 07/07/18 07/08/18 Range/Units 06:53 15:40 05:42 Sodium 139 (136-145) meq/L Potassium 4.2 (3.5-5.1) meq/L Chloride 104 (98-107) meq/L Carbon Dioxide 28.3 (21.0-32.0) meq/L BUN 27 H 26 H (7-18) mg/dL Creatinine 1.12 1.01 (0.60-1.30) mg/dL Calcium 7.6 L (8.5-10.1) mg/dL Intake and Output 07/08/18 07/08/18 07/08/18 06:59 14:59 22:59 Intake Total 362.5 / 362.5 100 / 100 100 / 100 Balance 362.5 / 362.5 100 / 100 100 / 100 Intake: IV 362.5 / 362.5 100 / 100 100 / 100 Primaxin Inj 500 MG In NS Inj 100 / 100 100 / 100 100 ML @ 200 mls/hr IV.SIG Q6H [facility] Rx#:[id number] Mycamine Inj 100 MG In NS Inj 100 / 100 100 ML @ 100 mls/hr IV.SIG Q24H [facility] Rx#:[id number] Vancomycin Inj 1,250 MG In NS 262.5 / 262.5 Inj 250 ML @ 250 mls/hr IV.SIG Q12H [facility] Rx#:[id number] Other: # Voids 3 Assessment and Plan - Plan PVCs Complex CAP Normal EF 55% After reviewing the telemetry, it appears as though the 40 second episode captured is most consistent with artifact. The patient was aymptomatic during that time. He has occasional PVC which are benign. These will likely improve with the resolution of his underlying pulmonary process. Agree with low dose BB , I doubt that he has >20,000 PVC in a day so holter not indicated at this point. He has had a thorough workup including a stress test that was normal according to the patient. I will order a Mg2+ level, his K+ level is normal. I have also ordered a baseline EKG to document his QT interval as he is on multiple antibiotics. Thanks for the consult. I will be available on a prn basis, feel free to contact me directly with any questions.
--- NOTE | 2018-07-08 17:02 | P.PNIM ---
Subjective Interval history: Patient is feeling comfortable today, no further need for oxygen which has been removed. He understands that new cultures were collected today and that we will need approximately 3-4 days for results to return therefore he will be here until at least Wednesday. Physical Exam Vital signs: Vital Signs 07/07/18 20:00 07/07/18 20:30 07/07/18 21:05 Temperature 97.9 F Pulse Rate 63 66 60 Respiratory Rate 18 Blood Pressure 137/75 Pulse Oximetry 95 07/07/18 21:23 07/08/18 00:00 07/08/18 00:30 Temperature 98.0 F Pulse Rate 80 60 54 L Respiratory Rate 21 18 Blood Pressure 139/73 Pulse Oximetry 96 94 L 07/08/18 02:38 07/08/18 03:57 07/08/18 04:00 Temperature 97.9 F Pulse Rate 58 L 55 L Respiratory Rate 17 16 18 Blood Pressure 184/80 H Pulse Oximetry 96 07/08/18 04:30 07/08/18 08:00 07/08/18 09:00 Temperature 97.3 F L Pulse Rate 53 L 59 L 53 L Respiratory Rate 16 Blood Pressure 154/75 H Pulse Oximetry 94 L 07/08/18 09:21 07/08/18 12:00 07/08/18 15:29 Temperature 97.6 F Pulse Rate 81 57 L 57 L Respiratory Rate 20 18 18 Blood Pressure 149/71 H Pulse Oximetry 94 L 07/08/18 16:00 Temperature Pulse Rate 54 L Respiratory Rate Blood Pressure Pulse Oximetry Intake & Output 07/07/18 07/08/18 07/08/18 18:59 06:59 18:59 Intake Total 2902.5 / 2902.5 462.5 / 462.5 200 / 200 Output Total 230 / 230 Balance 2672.5 / 2672.5 462.5 / 462.5 200 / 200 Intake: IV 562.5 / 562.5 462.5 / 462.5 200 / 200 Primaxin Inj 500 MG In NS Inj 200 / 200 200 / 200 100 / 100 100 ML @ 200 mls/hr IV.SIG Q6H [facility] Rx#:[id number] Mycamine Inj 100 MG In NS Inj 100 / 100 100 / 100 100 ML @ 100 mls/hr IV.SIG Q24H [facility] Rx#:[id number] Vancomycin Inj 1,250 MG In NS 262.5 / 262.5 262.5 / 262.5 Inj 250 ML @ 250 mls/hr IV.SIG Q12H [facility] Rx#:[id number] Oral 840 / 840 Tube Feeding 1500 / 1500 Output: Urine 230 / 230 Other: # Voids 2 3 Date of Last Bowel Movement 07/06/18 07/06/18 # Bowel Movements 1 Narrative: GENERAL: AAOx3, no acute distress, mild dyspnea with exertion SKIN: Warm and dry. No rashes HEAD: Atruamtic, normocephalic. EYES: No scleral icterus. No injection or drainage. ENT: Moist mucous membranes, patent nares, no erythema of oropharynx. NECK: Supple, trachea midline. No JVD or lymphadenopathy. Normal thyroid. CARDIOVASCULAR: Regular rate and rhythm. No murmurs, gallops, or rubs. RESPIRATORY: Scattered congestive sounds with mild crackles, no wheezing. No accessory muscle use. GASTROINTESTINAL: Abdomen soft, non-tender, nondistended, normal active bowel sounds MUSCULOSKELETAL: No cyanosis, or edema. NEURO: CN II-XII grossly intact, no focal deficits, no slurring of speech Results - Labs CBC & Chem 7: 07/08/18 05:42 07/08/18 05:42 Laboratory Results - last 24 hr 07/07/18 07/07/18 07/08/18 15:40 21:55 04:05 WBC RBC Hgb Hct MCV MCH MCHC RDW Plt Count MPV Sodium Potassium Chloride Carbon Dioxide Anion Gap BUN 27 H Creatinine Estimated GFR POC Glucose 272 H 173 H Random Glucose Calcium Vancomycin Trough 16.7 H 07/08/18 07/08/18 07/08/18 05:42 05:42 08:41 WBC 6.3 RBC 4.52 Hgb 13.9 Hct 40.5 MCV 89.5 MCH 30.7 MCHC 34.3 RDW 17.8 H Plt Count 146 L MPV 8.8 Sodium 139 Potassium 4.2 Chloride 104 Carbon Dioxide 28.3 Anion Gap 7 BUN 26 H Creatinine 1.01 Estimated GFR 72 L POC Glucose 135 H Random Glucose 149 H Calcium 7.6 L Vancomycin Trough 07/08/18 12:31 WBC RBC Hgb Hct MCV MCH MCHC RDW Plt Count MPV Sodium Potassium Chloride Carbon Dioxide Anion Gap BUN Creatinine Estimated GFR POC Glucose 211 H Random Glucose Calcium Vancomycin Trough Microbiology 07/08/18 09:30 Sputum - Expectorated Sputum Gram Stain - Final 06/30/18 15:10 Bronchial Washings - Bronchial Fungal Smear - Final Few budding yeast with pseudohyphae 06/30/18 15:10 Bronchial Washings - Bronchial Fungal Culture - Preliminary Elizabeth albicans 06/30/18 15:10 Bronchial Washings - Bronchial Acid Fast Bacilli Smear - Final No acid fast bacilli seen 06/30/18 15:10 Bronchial Washings - Bronchial Mycobacterial Culture - Preliminary No growth in 1 week Assessment and Plan - Plan 78-year-old male admitted with bilateral pneumonia and respiratory failure Community-acquired pneumonia, complex failure of outpatient therapy History of Acinetobacter infection Primaxin, micafungin, vancomycin per ID. Continue Solumedrol to 40 mg q8h. continue duo nebs, Symbicort, Mucinex Patient will need home oxygen walk test prior to discharge Plan for PICC line discharge with IV antibiotics per infectious disease New culture collected today which will need time to grow out, infectious disease needs this to make final determination on antibiotics Appreciate infectious disease consult Appreciate pulmonology following PVCs Cardiology reviewed the EKG which was more consistent with artifact than ventricular tachycardia The only abnormal cardiac rhythm he has are episodic PVCs which are benign Cardiology agrees with continuing metoprolol 12.5 mg twice daily, which has helped his blood pressure and has not affected his breathing negatively Appreciate cardiology consult Type 2 diabetes Accu-Cheks with sliding scale insulin coverage Diabetic diet Hypertension Better control after increasing lisinopril to 20 mg daily Parkinson's disease Continue Sinemet home dose Depression/ anxiety /chronic pain Continue Lexapro, Aricept, Cymbalta, Lyrica Chronic constipation Continue Linzess DVT prophylaxis Lovenox
[2018-07-09] MEDS: Insulin NovoLOG Aspart Correctional Sugar Inj SQ SCH ×5 (03:12→20:52)
[2018-07-09] MEDS: Sucralfate 1 GM Tablet PO SCH ×4 (06:06→23:28)
[2018-07-09] MEDS: Lipase/Protease/Amylase 24/76/120 DR Capsule PO SCH ×5 (06:06→22:00)
[2018-07-09] MEDS: MethylPREDNISolone Sod Succinate Inj 40 MG/ML Vial IV.PUSH SCH ×3 (06:07→22:00)
[2018-07-09] MEDS: Celecoxib 200 MG Capsule PO SCH ×2 (09:49→20:52)
[2018-07-09] MEDS: Metoprolol Tartrate 25 MG Tablet PO SCH ×2 (09:49→20:51)
[2018-07-09] MEDS: guaiFENesin 600 MG ER Tablet PO SCH ×2 (09:49→20:52)
[2018-07-09] MEDS: Senna/Docusate Sodium 8.6/50 MG Tablet PO SCH ×2 (09:51→20:52)
[2018-07-09] MEDS: Lisinopril 20 MG Tablet PO SCH (09:51)
[2018-07-09] MEDS: Duloxetine 60 MG DR Capsule PO SCH ×2 (09:51→20:51)
[2018-07-09] MEDS: Escitalopram 10 MG Tablet PO SCH (09:51)
[2018-07-09] MEDS: Insulin Detemir Inj 1,000 UNIT/10 ML Vial SQ SCH ×2 (09:54→20:52)
[2018-07-09] MEDS: Budesonide-Formoterol 160/4.5 MCG 6 GM Inhaler INH SCH ×2 (09:55→20:54)
--- NOTE | 2018-07-09 13:54 | P.PN ---
Subjective Interval history: Patient doing well overnight. Reports pain well controlled. No overnight events per RN. Patient tolerating p.o., voiding/stooling well. Patient does admit to eating Turkish food yesterday as he was hungry. Physical Exam Vital signs: Vital Signs 07/08/18 15:29 07/08/18 16:00 07/08/18 20:00 Temperature 98.1 F Pulse Rate 57 L 54 L 55 L Respiratory Rate 18 18 Blood Pressure 169/79 H Pulse Oximetry 95 07/08/18 21:04 07/09/18 00:00 07/09/18 04:00 Temperature 98.3 F 98.6 F Pulse Rate 55 L 55 L 55 L Respiratory Rate 18 18 18 Blood Pressure 132/73 164/77 H Pulse Oximetry 95 55 L 07/09/18 08:00 07/09/18 12:00 Temperature 98.8 F 97.8 F Pulse Rate 56 L 51 L Respiratory Rate 18 18 Blood Pressure 183/85 H 144/70 H Pulse Oximetry 95 94 L Intake & Output 07/08/18 07/09/18 07/09/18 18:59 06:59 18:59 Intake Total 1680 / 1680 200 / 200 100 / 100 Balance 1680 / 1680 200 / 200 100 / 100 Intake: IV 300 / 300 200 / 200 100 / 100 Primaxin Inj 500 MG In NS Inj 200 / 200 200 / 200 100 / 100 100 ML @ 200 mls/hr IV.SIG Q6H [facility] Rx#:[id number] Mycamine Inj 100 MG In NS Inj 100 / 100 100 ML @ 100 mls/hr IV.SIG Q24H [facility] Rx#:[id number] Oral 1380 / 1380 Other: # Voids 5 4 Date of Last Bowel Movement 07/06/18 07/06/18 # Bowel Movements 0 Narrative: GENERAL: Well-nourished male, in no acute distress, sitting comfortably in bed SKIN: Warm and dry. Left hand dressing C/D/I. HEAD: Normocephalic. EYES: No scleral icterus. No injection or drainage. NECK: Supple, trachea midline. No JVD or lymphadenopathy. CARDIOVASCULAR: Regular rate and rhythm without murmurs, gallops, or rubs. RESPIRATORY: Breath sounds equal bilaterally. No accessory muscle use. GASTROINTESTINAL: Abdomen soft, non-tender, nondistended. MUSCULOSKELETAL: No cyanosis, or edema. BACK: Nontender without obvious deformity. No CVA tenderness. NEURO: AAO x3, no focal deficits. Results - Labs CBC & Chem 7: 07/08/18 05:42 07/09/18 08:55 Laboratory Results - last 24 hr 07/08/18 07/08/18 07/08/18 17:23 18:49 20:36 BUN Creatinine Estimated GFR POC Glucose 152 H 191 H Magnesium 2.1 07/09/18 07/09/18 07/09/18 03:11 08:32 08:55 BUN 26 H Creatinine 1.13 Estimated GFR 63 L POC Glucose 276 H 200 H Magnesium 07/09/18 12:57 BUN Creatinine Estimated GFR POC Glucose 178 H Magnesium Microbiology 07/08/18 09:30 Sputum - Expectorated Sputum Gram Stain - Final 07/08/18 09:30 Sputum - Expectorated Sputum Sputum Culture - Preliminary Heavy growth normal respiratory carson at 24 hours 06/30/18 15:10 Bronchial Washings - Bronchial Fungal Smear - Final Few budding yeast with pseudohyphae 06/30/18 15:10 Bronchial Washings - Bronchial Fungal Culture - Preliminary Elizabeth albicans Assessment and Plan - Assessment (1) Diabetes Code(s): E11.9 - Type 2 diabetes mellitus without complications Status: Chronic (2) Pneumonia Code(s): J18.9 - Pneumonia, unspecified organism Status: Acute - Plan This is a 78-year-old CM admitted with bilateral pneumonia and respiratory failure after failing OP treatment, HD#12 1. Community-acquired pneumonia, complex Failed outpatient therapy CXR 07/03: Mildly improved bilateral lower lobe, left greater than right, airspace consolidation. History of Acinetobacter infection On Primaxin and Micafungin per ID, Vanc discontinued by ID on 07/08 Continue Solumedrol IV Q8 Continue Duonebs, Symbicort, and Mucinex Patient will need home oxygen walk test prior to discharge Sputum Cx on 07/08 pending Bronch Wash on 06/30: +Elizabeth Bld Cx from 06/28, HG at 5 daysx4, final Appreciate Infectious disease and pulmonology following and assistance with mgmt Stable from Pulm standpoint per their note on 07/08 ID Reccs 07/08: Continue Primaxin. Continue micafungin. Stop vancomycin. Monitor new sputum culture Monitor clinical and respiratory status. Await new sputum culture before making decision on antibiotic adjustment. Continue the Primaxin and micafungin over the weekend. 2. PVC's Cardiology reviewed the EKG which was more consistent with artifact than ventricular tachycardia The only abnormal cardiac rhythm he has are episodic PVCs which are benign Cardiology agrees with continuing metoprolol 12.5 mg twice daily, which has helped his blood pressure and has not affected his breathing negatively Appreciate cardiology consult [facility] 07/08: After reviewing the telemetry, it appears as though the 40 second episode captured is most consistent with artifact. The patient was aymptomatic during that time. He has occasional PVC which are benign. These will likely improve with the resolution of his underlying pulmonary process. Agree with low dose BB , I doubt that he has >20,000 PVC in a day so holter not indicated at this point. He has had a thorough workup including a stress test that was normal according to the patient. I will order a Mg2+ level, his K+ level is normal. I have also ordered a baseline EKG to document his QT interval as he is on multiple antibiotics. 3. Type 2 Diabetes BS poorly controlled, BS 452, 438 Cont. Accu-Cheks with sliding scale insulin coverage Diabetic diet encouraged Cont. Detemir, increase to 10U BID today Cont. Glipizide 4. Hypertension Still elevated, cont. Metoprolol and ASA Will increase lisinopril to 40mg PO QD We will continue to monitor 5. Parkinson's disease Continue Sinemet home dose 6. Depression/Anxiety /chronic pain/HLD/OA Continue Lexapro, Aricept, Cymbalta, Lyrica, Celebrex, and statin 7. Chronic constipation Continue Linzess 8. DVT prophylaxis: Lovenox 9. Dispo: Await sputum culture results, follow-up ID recommendations. Code Status: full Discussed Condition With: [patient, RN
[2018-07-09] MEDS: Enoxaparin Inj 40 MG/0.4 ML Syringe SQ SCH (18:10)
--- NOTE | 2018-07-09 20:34 | ECG ---
Date Performed: 07/08/2018 Time Performed: 17:25:49 PTAGE: 78 years EKG: SINUS BRADYCARDIA WITH FIRST DEGREE AV BLOCK WITH OCCASIONAL SUPRAVENTRICULAR PREMATURE COM PLEXES MODERATE VOLTAGE CRITERIA FOR LVH, CONSIDER NORMAL VARIANT INFERIOR Q WAVES ABNORMAL ECG PREVIOUS TRACING : 07/05/2018 14.29 Since the previous tracing, no significant change noted DOCTOR: Johan Pierre Interpretating Date/Time 07/09/2018 20:34:11
[2018-07-09] MEDS: Temazepam 15 MG Capsule PO SCH (20:51)
[2018-07-10] MEDS: Insulin NovoLOG Aspart Correctional Sugar Inj SQ SCH ×5 (03:18→21:41)
[2018-07-10] MEDS: Sucralfate 1 GM Tablet PO SCH ×3 (06:35→18:16)
[2018-07-10] MEDS: Lipase/Protease/Amylase 24/76/120 DR Capsule PO SCH ×5 (06:35→21:11)
[2018-07-10] MEDS: MethylPREDNISolone Sod Succinate Inj 40 MG/ML Vial IV.PUSH SCH ×3 (06:35→21:12)
[2018-07-10] MEDS: Escitalopram 10 MG Tablet PO SCH (09:43)
[2018-07-10] MEDS: Duloxetine 60 MG DR Capsule PO SCH ×2 (09:44→21:11)
[2018-07-10] MEDS: guaiFENesin 600 MG ER Tablet PO SCH ×2 (09:44→21:10)
[2018-07-10] MEDS: Insulin Detemir Inj 1,000 UNIT/10 ML Vial SQ SCH ×2 (09:44→21:42)
[2018-07-10] MEDS: Lisinopril 20 MG Tablet PO SCH (09:44)
[2018-07-10] MEDS: Celecoxib 200 MG Capsule PO SCH ×2 (09:44→21:10)
[2018-07-10] MEDS: Senna/Docusate Sodium 8.6/50 MG Tablet PO SCH ×2 (09:44→21:11)
[2018-07-10] MEDS: Budesonide-Formoterol 160/4.5 MCG 6 GM Inhaler INH SCH ×2 (09:55→21:42)
[2018-07-10] MEDS: amLODIPine 5 MG Tablet PO SCH (11:06)
[2018-07-10 11:21] LABS: Hematocrit 40.9 % (39.0-51.0); Hemoglobin 14.1 gm/dL (13.0-17.0); Lymph # (Auto) 0.6 th/mm3 (1.0-4.8); Lymph % (Auto) 6.7 % (9.0-44.0); Mean Corpuscular HGB Conc 34.4 % (32.0-36.0); Mean Corpuscular Volume 90.2 fL (80.0-100.0); Mean Platelet Volume 8.8 fL (7.0-11.0); Mono # (Auto) 0.5 th/mm3 (0.0-0.9); Mono % (Auto) 5.9 % (0.0-8.0); Neut # (Auto) 7.4 th/mm3 (1.8-7.7); Neut % (Auto) 87.4 % (16.0-70.0); Platelet Count 159 th/mm3 (150-450); Red Blood Count 4.53 mil/mm3 (4.50-5.90); Red Cell Distribution Width 17.9 % (11.6-17.2); White Blood Count 8.5 th/mm3 (4.0-11.0)
[2018-07-10 11:41] LABS: Albumin 2.9 g/dL (3.4-5.0); Anion Gap 10 meq/L (5-15); Aspartate Aminotransferase 13 U/L (15-37); Blood Urea Nitrogen 27 mg/dL (7-18); Calcium 7.6 mg/dL (8.5-10.1); Carbon Dioxide 23.2 meq/L (21.0-32.0); Chloride 104 meq/L (98-107); Glomerular Filtration Rate 69 mL/min (>89); Glucose,Random 197 mg/dL (74-106); Potassium 4.2 meq/L (3.5-5.1); Sodium 137 meq/L (136-145)
[2018-07-10 11:42] LABS: Alanine Aminotransferase 26 U/L (12-78)
[2018-07-10 11:44] LABS: Alkaline Phosphatase 85 U/L (45-117); Total Protein 5.9 g/dL (6.4-8.2)
--- NOTE | 2018-07-10 12:23 | P.PN ---
Subjective Interval history: Patient doing well. Reports improved shortness of breath and cough. Patient is tolerating p.o., voiding/stooling well. No overnight concerns per RN. Physical Exam Vital signs: Vital Signs 07/09/18 14:21 07/09/18 16:00 07/09/18 20:00 Temperature 97.8 F 98.2 F Pulse Rate 54 L 54 L Respiratory Rate 18 Blood Pressure 153/90 H 144/72 H Pulse Oximetry 94 L 93 L 93 L 07/10/18 00:00 07/10/18 04:00 07/10/18 08:00 Temperature 97 F L 97.1 F L 98 F Pulse Rate 50 L 48 L 46 L Respiratory Rate 16 16 18 Blood Pressure 143/74 H 166/83 H 167/91 H Pulse Oximetry 93 L 95 95 07/10/18 12:00 Temperature 97.5 F L Pulse Rate 76 Respiratory Rate 18 Blood Pressure 139/86 Pulse Oximetry 93 L Intake & Output 07/09/18 07/10/18 07/10/18 18:59 06:59 18:59 Intake Total 1260 / 1260 840 / 840 100 / 100 Balance 1260 / 1260 840 / 840 100 / 100 Weight 118.5 kg Intake: IV 300 / 300 200 / 200 100 / 100 Primaxin Inj 500 MG In NS Inj 200 / 200 200 / 200 100 / 100 100 ML @ 200 mls/hr IV.SIG Q6H ARSH Rx#:[id number] Mycamine Inj 100 MG In NS Inj 100 / 100 100 ML @ 100 mls/hr IV.SIG Q24H ARSH Rx#:[id number] Oral 960 / 960 640 / 640 Other: # Voids 5 4 Date of Last Bowel Movement 07/06/18 07/08/18 07/06/18 Narrative: GENERAL: Well-nourished male, in no acute distress, sitting comfortably in bed SKIN: Warm and dry. Left hand dressing C/D/I. HEAD: Normocephalic. EYES: No scleral icterus. No injection or drainage. NECK: Supple, trachea midline. No JVD or lymphadenopathy. CARDIOVASCULAR: Regular rate and rhythm without murmurs, gallops, or rubs. RESPIRATORY: Breath sounds equal bilaterally. No accessory muscle use. GASTROINTESTINAL: Abdomen soft, non-tender, nondistended. MUSCULOSKELETAL: No cyanosis, or edema. BACK: Nontender without obvious deformity. No CVA tenderness. NEURO: AAO x3, no focal deficits. Results - Labs CBC & Chem 7: 07/10/18 10:46 07/10/18 10:46 Laboratory Results - last 24 hr 07/09/18 07/09/18 07/09/18 12:57 17:24 20:06 WBC RBC Hgb Hct MCV MCH MCHC RDW Plt Count MPV Neut % (Auto) Lymph % (Auto) [place] % (Auto) Eos % (Auto) Baso % (Auto) Neut # (Auto) Lymph # (Auto) [place] # (Auto) Eos # (Auto) Baso # (Auto) WBC Differential Differential Comment Sodium Potassium Chloride Carbon Dioxide Anion Gap BUN Creatinine Estimated GFR POC Glucose 178 H 206 H 274 H Random Glucose Calcium Total Bilirubin AST ALT Alkaline Phosphatase Total Protein Albumin 07/10/18 07/10/18 07/10/18 03:15 07:45 10:46 WBC RBC Hgb Hct MCV MCH MCHC RDW Plt Count MPV Neut % (Auto) Lymph % (Auto) [place] % (Auto) Eos % (Auto) Baso % (Auto) Neut # (Auto) Lymph # (Auto) [place] # (Auto) Eos # (Auto) Baso # (Auto) WBC Differential Differential Comment Sodium 137 Potassium 4.2 Chloride 104 Carbon Dioxide 23.2 Anion Gap 10 BUN 27 H Creatinine 1.05 Estimated GFR 69 L POC Glucose 236 H 114 H Random Glucose 197 H Calcium 7.6 L Total Bilirubin 0.8 AST 13 L ALT 26 Alkaline Phosphatase 85 Total Protein 5.9 L Albumin 2.9 L 07/10/18 07/10/18 10:46 12:06 WBC 8.5 RBC 4.53 Hgb 14.1 Hct 40.9 MCV 90.2 MCH 31.0 MCHC 34.4 RDW 17.9 H Plt Count 159 MPV 8.8 Neut % (Auto) 87.4 H Lymph % (Auto) 6.7 L [place] % (Auto) 5.9 Eos % (Auto) 0.0 Baso % (Auto) 0.0 Neut # (Auto) 7.4 Lymph # (Auto) 0.6 L [place] # (Auto) 0.5 Eos # (Auto) 0.0 Baso # (Auto) 0.0 WBC Differential . Differential Comment Auto diff final Sodium Potassium Chloride Carbon Dioxide Anion Gap BUN Creatinine Estimated GFR POC Glucose 168 H Random Glucose Calcium Total Bilirubin AST ALT Alkaline Phosphatase Total Protein Albumin Microbiology 07/08/18 09:30 Sputum - Expectorated Sputum Gram Stain - Final 07/08/18 09:30 Sputum - Expectorated Sputum Sputum Culture - Final Heavy growth normal respiratory carson 06/30/18 15:10 Other - Final Assessment and Plan - Assessment (1) Diabetes Code(s): E11.9 - Type 2 diabetes mellitus without complications Status: Chronic (2) Pneumonia Code(s): J18.9 - Pneumonia, unspecified organism Status: Acute - Plan This is a 78-year-old CM admitted with bilateral pneumonia and respiratory failure after failing OP treatment, HD#13 1. Community-acquired pneumonia, complex Failed outpatient therapy CXR 07/03: Mildly improved bilateral lower lobe, left greater than right, airspace consolidation. History of Acinetobacter infection On Primaxin and Micafungin per ID, Vanc discontinued by ID on 07/08 Continue Solumedrol IV Q8 Continue Duonebs, Symbicort, and Mucinex Patient will need home oxygen walk test prior to discharge Sputum Cx on 07/08 pending Bronch Wash on 06/30: +Elizabeth Bld Cx from 06/28, HG at 5 daysx4, final Appreciate Infectious disease and pulmonology following and assistance with mgmt Stable from Pulm standpoint per their note on 07/08 ID Reccs 07/08: Continue Primaxin. Continue micafungin. Stop vancomycin. Monitor new sputum culture Monitor clinical and respiratory status. Await new sputum culture before making decision on antibiotic adjustment. Continue the Primaxin and micafungin over the weekend. 2. PVC's Cardiology reviewed the EKG which was more consistent with artifact than ventricular tachycardia The only abnormal cardiac rhythm he has are episodic PVCs which are benign Cardiology agrees with continuing metoprolol 12.5 mg twice daily, which has helped his blood pressure and has not affected his breathing negatively Appreciate cardiology consult Cards Recc 07/08: After reviewing the telemetry, it appears as though the 40 second episode captured is most consistent with artifact. The patient was aymptomatic during that time. He has occasional PVC which are benign. These will likely improve with the resolution of his underlying pulmonary process. Agree with low dose BB , I doubt that he has >20,000 PVC in a day so holter not indicated at this point. He has had a thorough workup including a stress test that was normal according to the patient. I will order a Mg2+ level, his K+ level is normal. I have also ordered a baseline EKG to document his QT interval as he is on multiple antibiotics. 3. Type 2 Diabetes BS improved 168, 114 Cont. Accu-Cheks with sliding scale insulin coverage Diabetic diet encouraged Cont. Detemir 10U BID and Glipizide 4. Hypertension Still elevated, cont. Lisinopril Will add Norvasc (Metoprolol held due to bradycardia, HR40, asymptomatic) Will continue to monitor 5. Bradycardia Per patient baseline is 40-50's As patient reports some fatigue will hold beta-tori for now Continue to monitor 6. Parkinson's disease Continue Sinemet home dose 7. Depression/Anxiety /chronic pain/HLD/OA Continue Lexapro, Aricept, Cymbalta, Lyrica, Celebrex, and statin 8. Chronic constipation Continue Linzess 9. DVT prophylaxis: Lovenox 10. Dispo: Await sputum culture results, follow-up ID recommendations. Code Status: full Discussed Condition With: patient,RN
[2018-07-10] MEDS: Enoxaparin Inj 40 MG/0.4 ML Syringe SQ SCH (17:33)
[2018-07-10] MEDS ORDERED: Influenza (Quadrivalent) Vaccine 0.5 ML Syringe IM ONE (18:15)
[2018-07-10] MEDS: Temazepam 15 MG Capsule PO SCH (21:10)
[2018-07-11] MEDS: Sucralfate 1 GM Tablet PO SCH ×4 (00:10→18:50)
[2018-07-11] MEDS: Insulin NovoLOG Aspart Correctional Sugar Inj SQ SCH ×5 (04:29→22:53)
[2018-07-11] MEDS: MethylPREDNISolone Sod Succinate Inj 40 MG/ML Vial IV.PUSH SCH ×2 (05:00→15:08)
[2018-07-11] MEDS: Lipase/Protease/Amylase 24/76/120 DR Capsule PO SCH ×5 (05:02→23:04)
[2018-07-11 09:45] LABS: Baso % (Auto) 0.1 % (0.0-2.0); Hematocrit 40.9 % (39.0-51.0); Lymph # (Auto) 0.5 th/mm3 (1.0-4.8); Lymph % (Auto) 2.5 % (9.0-44.0); Mean Corpuscular HGB Conc 34.2 % (32.0-36.0); Mean Corpuscular Hemoglobin 30.6 pg (27.0-34.0); Mean Corpuscular Volume 89.5 fL (80.0-100.0); Mean Platelet Volume 8.9 fL (7.0-11.0); Mono # (Auto) 1.3 th/mm3 (0.0-0.9); Mono % (Auto) 6.2 % (0.0-8.0); Neut # (Auto) 19.3 th/mm3 (1.8-7.7); Neut % (Auto) 91.2 % (16.0-70.0); Platelet Count 149 th/mm3 (150-450); Red Blood Count 4.57 mil/mm3 (4.50-5.90); White Blood Count 21.1 th/mm3 (4.0-11.0)
[2018-07-11 10:06] LABS: Anion Gap 9 meq/L (5-15); Aspartate Aminotransferase 12 U/L (15-37); Blood Urea Nitrogen 25 mg/dL (7-18); Calcium 7.8 mg/dL (8.5-10.1); Carbon Dioxide 24.9 meq/L (21.0-32.0); Chloride 103 meq/L (98-107); Glomerular Filtration Rate 77 mL/min (>89); Glucose,Random 188 mg/dL (74-106); Potassium 4.3 meq/L (3.5-5.1); Sodium 137 meq/L (136-145)
[2018-07-11 10:10] LABS: Alanine Aminotransferase 30 U/L (12-78); Alkaline Phosphatase 87 U/L (45-117); Total Protein 5.6 g/dL (6.4-8.2)
[2018-07-11 10:40] LABS: Lymphocytes 9 % (9-44); Monocytes 4 % (0-8); Myelocytes 1 % (0-0); Platelet Morphology Normal (Normal)
[2018-07-11] MEDS: Duloxetine 60 MG DR Capsule PO SCH ×2 (10:43→21:30)
[2018-07-11] MEDS: amLODIPine 5 MG Tablet PO SCH (10:43)
[2018-07-11] MEDS: Lisinopril 20 MG Tablet PO SCH (10:43)
[2018-07-11] MEDS: Celecoxib 200 MG Capsule PO SCH ×2 (10:43→21:30)
[2018-07-11] MEDS: Escitalopram 10 MG Tablet PO SCH (10:43)
[2018-07-11] MEDS: Senna/Docusate Sodium 8.6/50 MG Tablet PO SCH ×2 (10:43→21:30)
[2018-07-11] MEDS: guaiFENesin 600 MG ER Tablet PO SCH ×2 (10:43→21:30)
[2018-07-11] MEDS: Insulin Detemir Inj 1,000 UNIT/10 ML Vial SQ SCH ×2 (10:44→22:52)
[2018-07-11 10:49] LABS: Burr Cells 1+; Ovalocytes 1+
[2018-07-11] MEDS: Budesonide-Formoterol 160/4.5 MCG 6 GM Inhaler INH SCH ×2 (15:11→21:32)
--- NOTE | 2018-07-11 15:16 | P.PNID ---
Subjective Remarks: Patient says his breathing is better. He reportedly was somewhat short of breath this morning. His says he appears very drowsy and currently and that is the way he looks whenever he gets very ill. His white blood cell count has shot up to 21,000. Line Denies chills no nausea. Reports sore throat. Blood pressure is normal. Last sputum culture showed normal carson. He underwent bronchoscopy which revealed thick mucous plugging. Bronchoscopy sputum culture had elizabeth albicans. This is a 78-year-old white male who presented to the emergency department on 06/19/2018 with chest pain. The patient was felt to have a COPD exacerbation. He was treated in the hospital and discharged on 06/22/2018 on inhalers and oral antibiotic. The patient states that after he went home, he was still having difficulty with breathing and was unable to sleep lying flat. He was given IV Levaquin in the hospital and discharged on p.o. Levaquin. Continued to have worsening shortness of breath. The patient notes that he did spent approximately 5 weeks in [place] before returning to [place] approximately 2 weeks ago and after he got to [place] he started feeling sick. Past Medical History: PAST MEDICAL HISTORY: Diabetes mellitus, hypertension, hyperlipidemia, monoclonal gammopathy, Parkinson's disease, chronic left shoulder pain, abscess of the gallbladder, anxiety disorder, CVA, history of bilateral knee replacement, cholecystectomy. Allergies/Adverse Reactions: Allergies sulfamethoxazole [From Bactrim] Allergy (Mild, Verified 06/19/18 12:12) Hives trimethoprim [From Bactrim] Allergy (Mild, Verified 06/19/18 12:12) Hives Objective Vital Signs 07/10/18 16:00 07/10/18 20:00 07/11/18 00:00 Temperature 97.7 F 98.2 F 98 F Pulse Rate 53 L 55 L 51 L Respiratory Rate 18 18 18 Blood Pressure 144/87 H 129/79 127/76 Pulse Oximetry 93 L 93 L 94 L 07/11/18 04:00 07/11/18 08:00 07/11/18 12:00 Temperature 98.1 F 97.4 F L 97.8 F Pulse Rate 58 L 64 77 Respiratory Rate 18 20 20 Blood Pressure 158/76 H 139/79 128/66 Pulse Oximetry 93 L 91 L 93 L Intake & Output 07/10/18 07/11/18 07/11/18 18:59 06:59 18:59 Intake Total 1280 / 1280 440 / 440 Output Total 800 / 800 1300 / 1300 Balance 480 / 480 -860 / -860 Weight 118.5 kg Intake: IV 300 / 300 200 / 200 Primaxin Inj 500 MG In NS Inj 200 / 200 200 / 200 100 ML @ 200 mls/hr IV.SIG Q6H ARSH Rx#:[id number] Mycamine Inj 100 MG In NS Inj 100 / 100 100 ML @ 100 mls/hr IV.SIG Q24H ARSH Rx#:[id number] Oral 980 / 980 240 / 240 Output: Urine 800 / 800 1300 / 1300 Other: # Voids 3 Date of Last Bowel Movement 07/06/18 07/08/18 09:30 Sputum - Expectorated Sputum Gram Stain - Final 07/08/18 09:30 Sputum - Expectorated Sputum Sputum Culture - Final Heavy growth normal respiratory carson 06/30/18 15:10 Other - Final 06/30/18 15:10 Bronchial Washings - Bronchial Fungal Smear - Final Few budding yeast with pseudohyphae 06/30/18 15:10 Bronchial Washings - Bronchial Fungal Culture - Preliminary Elizabeth albicans Lab - Hematology Results 07/10/18 07/11/18 10:46 08:47 WBC 8.5 21.1 H D RBC 4.53 4.57 Hgb 14.1 14.0 Hct 40.9 40.9 MCV 90.2 89.5 MCH 31.0 30.6 MCHC 34.4 34.2 RDW 17.9 H 18.0 H Plt Count 159 149 L MPV 8.8 8.9 Neut % (Auto) 87.4 H 91.2 H Lymph % (Auto) 6.7 L 2.5 L [place] % (Auto) 5.9 6.2 Eos % (Auto) 0.0 0.0 Baso % (Auto) 0.0 0.1 Neut # (Auto) 7.4 19.3 H Lymph # (Auto) 0.6 L 0.5 L [place] # (Auto) 0.5 1.3 H Eos # (Auto) 0.0 0.0 Baso # (Auto) 0.0 0.0 WBC Differential . Manual diff final Seg Neuts % (Manual) 84 H Band Neuts % (Manual) 2 Lymphocytes % (Manual) 9 Monocytes % (Manual) 4 Myelocytes % (Man) 1 H Abs Neuts (Manual) 18.4 H Differential Comment Auto diff final Auto diff final Platelet Estimate Low L Platelet Morphology Normal Ovalocytes 1+ H [place] Cells 1+ H Lab - Chemistry Results 07/09/18 07/09/18 07/10/18 17:24 20:06 03:15 Sodium Potassium Chloride Carbon Dioxide Anion Gap BUN Creatinine Estimated GFR POC Glucose 206 H 274 H 236 H Random Glucose Calcium Total Bilirubin AST ALT Alkaline Phosphatase Total Protein Albumin 07/10/18 07/10/18 07/10/18 07:45 10:46 12:06 Sodium 137 Potassium 4.2 Chloride 104 Carbon Dioxide 23.2 Anion Gap 10 BUN 27 H Creatinine 1.05 Estimated GFR 69 L POC Glucose 114 H 168 H Random Glucose 197 H Calcium 7.6 L Total Bilirubin 0.8 AST 13 L ALT 26 Alkaline Phosphatase 85 Total Protein 5.9 L Albumin 2.9 L 07/10/18 07/10/18 07/11/18 17:30 21:05 03:57 Sodium Potassium Chloride Carbon Dioxide Anion Gap BUN Creatinine Estimated GFR POC Glucose 258 H 279 H 237 H Random Glucose Calcium Total Bilirubin AST ALT Alkaline Phosphatase Total Protein Albumin 07/11/18 07/11/18 07/11/18 08:47 08:53 13:27 Sodium 137 Potassium 4.3 Chloride 103 Carbon Dioxide 24.9 Anion Gap 9 BUN 25 H Creatinine 0.95 Estimated GFR 77 L POC Glucose 183 H 227 H Random Glucose 188 H Calcium 7.8 L Total Bilirubin 0.6 AST 12 L ALT 30 Alkaline Phosphatase 87 Total Protein 5.6 L Albumin 3.0 L Imaging: ITS Impressions Chest X-Ray 07/03/18 14:55 CONCLUSION: 1. Mildly improved bilateral lower lobe, left greater than right, airspace consolidation. Physical Exam: PHYSICAL EXAMINATION: GENERAL: Awake and alert. HEENT: Extraocular movements grossly intact. Pupils reactive to light. No icterus. Oropharynx: mucosa moist. NECK: Supple. No adenopathy. LUNGS: Decreased breath sounds at the bases. Good air movement at the upper lung [place]. HEART: Regular S1 and S2. Irregular rate. No audible murmur. ABDOMEN: Bowel sounds present, obese, soft. No tenderness. EXTREMITIES: 1+ pitting edema of the lower extremities. No clubbing or cyanosis. SKIN: No diffuse rash. NEUROLOGIC: No gross focal finding. PSYCHIATRIC: Calm and cooperative. Assessment and Plan - Plan IMPRESSION: 1. Probable hospital-acquired pneumonia. The patient with a known history of resistant bacterial pneumonia in the past. Bronchoscopy revealed mucous plugging and culture had Elizabeth. 2. Orthopnea improved. 3. Leukocytosis. Increased dramatically today to 21,000. RECOMMENDATIONS: 1. Stop Primaxin. 2. Stop micafungin. 3. Repeat the chest x-ray today. 4. Monitor clinical and respiratory status. 5. Monitor temperature. 6. Repeat white blood cell count tomorrow. Will order chest x-ray to determine if additional antibiotics are necessary. At the moment I would hold off on additional antibiotics. If the chest x-ray is remarkable he may need additional antibiotics. Otherwise if he is stable he could probably be discharged without antibiotics. Further decisions depending on chest x-ray results and clinical status overnight. I have reviewed laboratory data, radiographic studies and microbiologic data in formulation of plans on this patient.
--- NOTE | 2018-07-11 15:16 | P.PN ---
Subjective Interval history: Patient doing well overnight, tolerating p.o., and voiding/stooling well. No overnight events per RN. Physical Exam Vital signs: Vital Signs 07/10/18 16:00 07/10/18 20:00 07/11/18 00:00 Temperature 97.7 F 98.2 F 98 F Pulse Rate 53 L 55 L 51 L Respiratory Rate 18 18 18 Blood Pressure 144/87 H 129/79 127/76 Pulse Oximetry 93 L 93 L 94 L 07/11/18 04:00 07/11/18 08:00 07/11/18 12:00 Temperature 98.1 F 97.4 F L 97.8 F Pulse Rate 58 L 64 77 Respiratory Rate 18 20 20 Blood Pressure 158/76 H 139/79 128/66 Pulse Oximetry 93 L 91 L 93 L Intake & Output 07/10/18 07/11/18 07/11/18 18:59 06:59 18:59 Intake Total 1280 / 1280 440 / 440 Output Total 800 / 800 1300 / 1300 Balance 480 / 480 -860 / -860 Weight 118.5 kg Intake: IV 300 / 300 200 / 200 Primaxin Inj 500 MG In NS Inj 200 / 200 200 / 200 100 ML @ 200 mls/hr IV.SIG Q6H ARSH Rx#:[id number] Mycamine Inj 100 MG In NS Inj 100 / 100 100 ML @ 100 mls/hr IV.SIG Q24H ARSH Rx#:[id number] Oral 980 / 980 240 / 240 Output: Urine 800 / 800 1300 / 1300 Other: # Voids 3 Date of Last Bowel Movement 07/06/18 Narrative: GENERAL: Well-nourished male, in no acute distress, sitting comfortably in bed SKIN: Warm and dry. HEAD: Normocephalic. EYES: No scleral icterus. No injection or drainage. NECK: Supple, trachea midline. No JVD or lymphadenopathy. CARDIOVASCULAR: Regular rate and rhythm without murmurs, gallops, or rubs. RESPIRATORY: Breath sounds equal bilaterally. No accessory muscle use. GASTROINTESTINAL: Abdomen soft, non-tender, nondistended. MUSCULOSKELETAL: No cyanosis, or edema. BACK: Nontender without obvious deformity. No CVA tenderness. NEURO: AAO x3, no focal deficits. Results - Labs CBC & Chem 7: 07/11/18 08:47 07/11/18 08:47 Laboratory Results - last 24 hr 07/10/18 07/10/18 07/11/18 17:30 21:05 03:57 WBC RBC Hgb Hct MCV MCH MCHC RDW Plt Count MPV Neut % (Auto) Lymph % (Auto) [place] % (Auto) Eos % (Auto) Baso % (Auto) Neut # (Auto) Lymph # (Auto) [place] # (Auto) Eos # (Auto) Baso # (Auto) WBC Differential Seg Neuts % (Manual) Band Neuts % (Manual) Lymphocytes % (Manual) Monocytes % (Manual) Myelocytes % (Man) Abs Neuts (Manual) Differential Comment Platelet Estimate Platelet Morphology Ovalocytes [place] Cells Sodium Potassium Chloride Carbon Dioxide Anion Gap BUN Creatinine Estimated GFR POC Glucose 258 H 279 H 237 H Random Glucose Calcium Total Bilirubin AST ALT Alkaline Phosphatase Total Protein Albumin 07/11/18 07/11/18 07/11/18 08:47 08:47 08:53 WBC 21.1 H D RBC 4.57 Hgb 14.0 Hct 40.9 MCV 89.5 MCH 30.6 MCHC 34.2 RDW 18.0 H Plt Count 149 L MPV 8.9 Neut % (Auto) 91.2 H Lymph % (Auto) 2.5 L [place] % (Auto) 6.2 Eos % (Auto) 0.0 Baso % (Auto) 0.1 Neut # (Auto) 19.3 H Lymph # (Auto) 0.5 L [place] # (Auto) 1.3 H Eos # (Auto) 0.0 Baso # (Auto) 0.0 WBC Differential Manual diff final Seg Neuts % (Manual) 84 H Band Neuts % (Manual) 2 Lymphocytes % (Manual) 9 Monocytes % (Manual) 4 Myelocytes % (Man) 1 H Abs Neuts (Manual) 18.4 H Differential Comment Auto diff final Platelet Estimate Low L Platelet Morphology Normal Ovalocytes 1+ H [place] Cells 1+ H Sodium 137 Potassium 4.3 Chloride 103 Carbon Dioxide 24.9 Anion Gap 9 BUN 25 H Creatinine 0.95 Estimated GFR 77 L POC Glucose 183 H Random Glucose 188 H Calcium 7.8 L Total Bilirubin 0.6 AST 12 L ALT 30 Alkaline Phosphatase 87 Total Protein 5.6 L Albumin 3.0 L 07/11/18 13:27 WBC RBC Hgb Hct MCV MCH MCHC RDW Plt Count MPV Neut % (Auto) Lymph % (Auto) [place] % (Auto) Eos % (Auto) Baso % (Auto) Neut # (Auto) Lymph # (Auto) [place] # (Auto) Eos # (Auto) Baso # (Auto) WBC Differential Seg Neuts % (Manual) Band Neuts % (Manual) Lymphocytes % (Manual) Monocytes % (Manual) Myelocytes % (Man) Abs Neuts (Manual) Differential Comment Platelet Estimate Platelet Morphology Ovalocytes [place] Cells Sodium Potassium Chloride Carbon Dioxide Anion Gap BUN Creatinine Estimated GFR POC Glucose 227 H Random Glucose Calcium Total Bilirubin AST ALT Alkaline Phosphatase Total Protein Albumin Microbiology 07/08/18 09:30 Sputum - Expectorated Sputum Gram Stain - Final 07/08/18 09:30 Sputum - Expectorated Sputum Sputum Culture - Final Heavy growth normal respiratory carson Assessment and Plan - Assessment (1) Diabetes Code(s): E11.9 - Type 2 diabetes mellitus without complications Status: Chronic (2) Pneumonia Code(s): J18.9 - Pneumonia, unspecified organism Status: Acute - Plan This is a 78-year-old CM admitted with bilateral pneumonia and respiratory failure after failing OP treatment, HD#14 1. Community-acquired pneumonia, complex Failed outpatient therapy CXR 07/03: Mildly improved bilateral lower lobe, left greater than right, airspace consolidation. History of Acinetobacter infection On Primaxin and Micafungin per ID, Vanc discontinued by ID on 07/08 Continue Solumedrol IV Q8 Continue Duonebs, Symbicort, and Mucinex Patient will need home oxygen walk test prior to discharge Sputum Cx on 07/08 heavy growth normal carson Bronch Wash on 06/30: +Elizabeth Bld Cx from 06/28, HG at 5 daysx4, final Appreciate Infectious disease and pulmonology following and assistance with mgmt Stable from Pulm standpoint per their note on 07/08 ID Reccs 07/08: Continue Primaxin. Continue micafungin. Stop vancomycin. Monitor new sputum culture Monitor clinical and respiratory status. Await new sputum culture before making decision on antibiotic adjustment. Continue the Primaxin and micafungin over the weekend. 2. PVC's Cardiology reviewed the EKG which was more consistent with artifact than ventricular tachycardia The only abnormal cardiac rhythm he has are episodic PVCs which are benign Cardiology agrees with continuing metoprolol 12.5 mg twice daily, which has helped his blood pressure and has not affected his breathing negatively Appreciate cardiology consult Cards [facility] 07/08: After reviewing the telemetry, it appears as though the 40 second episode captured is most consistent with artifact. The patient was aymptomatic during that time. He has occasional PVC which are benign. These will likely improve with the resolution of his underlying pulmonary process. Agree with low dose BB , I doubt that he has >20,000 PVC in a day so holter not indicated at this point. He has had a thorough workup including a stress test that was normal according to the patient. I will order a Mg2+ level, his K+ level is normal. I have also ordered a baseline EKG to document his QT interval as he is on multiple antibiotics. 3. Type 2 Diabetes BS improved but still 180-220 Cont. Accu-Cheks with sliding scale insulin coverage Diabetic diet encouraged Increase to Detemir 15U BID and Glipizide 4. Hypertension Still elevated, cont. Lisinopril Will add Norvasc (Metoprolol held due to bradycardia, HR40, asymptomatic) Will continue to monitor 5. Leukocytosis Due to steroid use and infection Continue to monitor 6. Parkinson's disease Continue Sinemet home dose 7. Depression/Anxiety /chronic pain/HLD/OA Continue Lexapro, Aricept, Cymbalta, Lyrica, Celebrex, and statin 8. Chronic constipation Continue Linzess 9. DVT prophylaxis: Lovenox 10. Dispo: Increase detemir today due to elevated blood sugars, await ID recommendations for D/C ABX Code Status: full Discussed Condition With: patient, RN
--- NOTE | 2018-07-11 15:52 | XR ---
EXAM DATE: 07/11/2018 12:00 AM EDT AGE/SEX: 78 years / Male INDICATIONS: Evaluate for pneumonia CLINICAL DATA: This is the patient's subsequent encounter. Patient reports that signs and symptoms h ave been present for 2 weeks and indicates a pain score of 0/10. MEDICAL/SURGICAL HISTORY: Chronic obstructive pulmonary disease. None. COMPARISON: C, CHEST 1V SINGLE AP, 07/03/2018. . FINDINGS: Progressive mild left lower lobe airspace consolidation. Improved aeration in the right lower lung zo ne. Cardiomediastinal contours are stable. Remainder of the exam is unchanged. CONCLUSION: 1. Improved aeration in the right lower lung zone compared to 07/03/2018. 2. Minimal interval progression of mild left lower lobe airspace consolidation concerning for develo ping pneumonia or aspiration in the appropriate clinical setting. Electronically signed by: Chandrakant Ortega MD 07/11/2018 3:51 PM EDT
--- NOTE | 2018-07-11 17:32 | P.PNPL ---
Subjective Interval history: 78 YOWM with SOB,Pn,parkinson disease Had Bronch, lots of mucous plugs suctioned no Fever Breathing little better Ambulates No Wheezing On 2LNC WBC 21K Off Primaxin and Micafungin Physical Exam Vital signs: Vital Signs 07/10/18 20:00 07/11/18 00:00 07/11/18 04:00 Temperature 98.2 F 98 F 98.1 F Pulse Rate 55 L 51 L 58 L Respiratory Rate 18 18 Blood Pressure 129/79 127/76 158/76 H Pulse Oximetry 93 L 94 L 93 L 07/11/18 08:00 07/11/18 12:00 07/11/18 16:00 Temperature 97.4 F L 97.8 F 97.4 F L Pulse Rate 64 77 67 Respiratory Rate 20 20 20 Blood Pressure 139/79 128/66 128/87 Pulse Oximetry 91 L 93 L 95 Intake & Output 07/10/18 07/11/18 07/11/18 18:59 06:59 18:59 Intake Total 1280 / 1280 440 / 440 200 / 200 Output Total 800 / 800 1300 / 1300 Balance 480 / 480 -860 / -860 200 / 200 Weight 118.5 kg Intake: IV 300 / 300 200 / 200 200 / 200 Primaxin Inj 500 MG In NS Inj 200 / 200 200 / 200 100 / 100 100 ML @ 200 mls/hr IV.SIG Q6H ARSH Rx#:[id number] Mycamine Inj 100 MG In NS Inj 100 / 100 100 / 100 100 ML @ 100 mls/hr IV.SIG Q24H ARSH Rx#:[id number] Oral 980 / 980 240 / 240 Output: Urine 800 / 800 1300 / 1300 Other: # Voids 3 Date of Last Bowel Movement 07/06/18 07/06/18 GENERAL: Eldelry WM,NAD SKIN: Warm and dry. HEAD: Normocephalic. EYES: No scleral icterus. No injection or drainage. NECK: Supple, trachea midline. No JVD or lymphadenopathy. CARDIOVASCULAR: Regular rate and rhythm without murmurs, gallops, or rubs. RESPIRATORY: Breath sounds equal bilaterally. No accessory muscle use. GASTROINTESTINAL: Abdomen soft, non-tender, nondistended. MUSCULOSKELETAL: No cyanosis, or edema. BACK: Nontender without obvious deformity. No CVA tenderness. Assessment and Plan - Plan IMPRESSION: 1. Worsening shortness of breath with coarse crackles and possible mucus impaction. However, his chest x-ray shows only mild atelectasis. 2. Possible congestive heart failure, but BNP is only 25. He has orthopnea and paroxysmal nocturnal dyspnea. His recent CT was negative. 3. Hypertension. 4. Chronic obstructive pulmonary disease. 5. Parkinson disease. 6. Leucocytosis, prob from Steroids PLAN: ID following Aerosol nebs Use Acapella OOB and ambulate DC Solumedrol Pred 10 mg bid CBC in AM
[2018-07-11] MEDS: Enoxaparin Inj 40 MG/0.4 ML Syringe SQ SCH (18:50)
[2018-07-11] MEDS: predniSONE 10 MG Tablet PO SCH (21:31)
[2018-07-11] MEDS: Temazepam 15 MG Capsule PO SCH (21:31)
[2018-07-12] MEDS: Sucralfate 1 GM Tablet PO SCH ×3 (00:06→12:06)
[2018-07-12] MEDS: Insulin NovoLOG Aspart Correctional Sugar Inj SQ SCH ×3 (05:30→11:23)
[2018-07-12] MEDS: Lipase/Protease/Amylase 24/76/120 DR Capsule PO SCH ×2 (05:33→09:04)
[2018-07-12] MEDS: amLODIPine 5 MG Tablet PO SCH (08:08)
[2018-07-12] MEDS: Escitalopram 10 MG Tablet PO SCH (08:08)
[2018-07-12] MEDS: Duloxetine 60 MG DR Capsule PO SCH (08:08)
[2018-07-12] MEDS: guaiFENesin 600 MG ER Tablet PO SCH (08:08)
[2018-07-12] MEDS: Celecoxib 200 MG Capsule PO SCH (08:09)
[2018-07-12] MEDS: Lisinopril 20 MG Tablet PO SCH (08:09)
[2018-07-12] MEDS: Senna/Docusate Sodium 8.6/50 MG Tablet PO SCH (08:09)
[2018-07-12] MEDS: predniSONE 10 MG Tablet PO SCH (08:09)
[2018-07-12] MEDS: Insulin Detemir Inj 1,000 UNIT/10 ML Vial SQ SCH (08:10)
[2018-07-12] MEDS: Budesonide-Formoterol 160/4.5 MCG 6 GM Inhaler INH SCH (08:12)
[2018-07-12 08:21] VITALS: RESP 20; TEMP 97.3; O2SAT 95
[2018-07-12 08:55] LABS: Baso % (Auto) 0.2 % (0.0-2.0); Hematocrit 41.6 % (39.0-51.0); Hemoglobin 14.3 gm/dL (13.0-17.0); Lymph # (Auto) 1.2 th/mm3 (1.0-4.8); Lymph % (Auto) 13.1 % (9.0-44.0); Mean Corpuscular HGB Conc 34.3 % (32.0-36.0); Mean Corpuscular Hemoglobin 30.8 pg (27.0-34.0); Mean Corpuscular Volume 89.9 fL (80.0-100.0); Mean Platelet Volume 8.7 fL (7.0-11.0); Mono # (Auto) 0.7 th/mm3 (0.0-0.9); Mono % (Auto) 7.8 % (0.0-8.0); Neut # (Auto) 7.5 th/mm3 (1.8-7.7); Neut % (Auto) 78.9 % (16.0-70.0); Platelet Count 133 th/mm3 (150-450); Red Blood Count 4.63 mil/mm3 (4.50-5.90); Red Cell Distribution Width 18.4 % (11.6-17.2); White Blood Count 9.5 th/mm3 (4.0-11.0)
[2018-07-12 09:25] LABS: Anion Gap 7 meq/L (5-15); Aspartate Aminotransferase 11 U/L (15-37); Blood Urea Nitrogen 26 mg/dL (7-18); Calcium 7.9 mg/dL (8.5-10.1); Carbon Dioxide 28.7 meq/L (21.0-32.0); Chloride 102 meq/L (98-107); Glomerular Filtration Rate 68 mL/min (>89); Glucose,Random 143 mg/dL (74-106); Sodium 138 meq/L (136-145)
[2018-07-12 09:26] LABS: Alanine Aminotransferase 28 U/L (12-78)
[2018-07-12 09:29] LABS: Alkaline Phosphatase 90 U/L (45-117)
--- NOTE | 2018-07-12 11:22 | P.PNPL ---
Subjective Interval history: 78 YOWM with SOB,Pn,parkinson disease Had Bronch, lots of mucous plugs suctioned no Fever Breathing little better Ambulates No Wheezing. Weaned to RA WBC decreased to 9.5 Physical Exam Vital signs: Vital Signs 07/11/18 12:00 07/11/18 16:00 07/11/18 20:00 Temperature 97.8 F 97.4 F L 98.4 F Pulse Rate 77 67 66 Respiratory Rate 20 20 19 Blood Pressure 128/66 128/87 118/57 L Pulse Oximetry 93 L 95 92 L 07/12/18 00:00 07/12/18 04:00 07/12/18 07:00 Temperature 98.1 F 97.4 F L Pulse Rate 65 108 H Respiratory Rate 16 18 12 Blood Pressure 117/58 L 131/66 Pulse Oximetry 94 L 93 L 07/12/18 08:00 07/12/18 09:00 Temperature 97.3 F L Pulse Rate 61 55 L Respiratory Rate 20 Blood Pressure 147/81 H Pulse Oximetry 95 Intake & Output 07/11/18 07/12/18 07/12/18 18:59 06:59 18:59 Intake Total 1700 / 1700 Balance 1700 / 1700 Weight 115 kg Intake: IV 200 / 200 Primaxin Inj 500 MG In NS Inj 100 / 100 100 ML @ 200 mls/hr IV.SIG Q6H [facility] Rx#:[id number] Mycamine Inj 100 MG In NS Inj 100 / 100 100 ML @ 100 mls/hr IV.SIG Q24H [facility] Rx#:[id number] Oral 1300 / 1300 Other 200 / 200 Other: Other Intake Source Saline Solution # Voids 4 5 Date of Last Bowel Movement 07/10/18 07/12/18 07/11/18 # Bowel Movements 0 1 GENERAL: WBWN WM, NAD SKIN: Warm and dry. HEAD: Normocephalic. EYES: No scleral icterus. No injection or drainage. NECK: Supple, trachea midline. No JVD or lymphadenopathy. CARDIOVASCULAR: Regular rate and rhythm without murmurs, gallops, or rubs. RESPIRATORY: Breath sounds equal bilaterally. No accessory muscle use. GASTROINTESTINAL: Abdomen soft, non-tender, nondistended. MUSCULOSKELETAL: No cyanosis, or edema. BACK: Nontender without obvious deformity. No CVA tenderness. Assessment and Plan - Plan IMPRESSION: 1. Worsening shortness of breath with coarse crackles and possible mucus impaction. However, his chest x-ray shows only mild atelectasis. 2. Possible congestive heart failure, but BNP is only 25. He has orthopnea and paroxysmal nocturnal dyspnea. His recent CT was negative. 3. Hypertension. 4. Chronic obstructive pulmonary disease. 5. Parkinson disease. 6. Leucocytosis, prob from Steroids-- Improved PLAN: ID following Aerosol nebs Use Acapella OOB and ambulate Pred 10 mg bid Stable from Pulm standpoint
--- NOTE | 2018-07-12 12:27 | P.PNID ---
Subjective Remarks: Patient feels okay. Currently on room air. Denies problems with breathing. The white blood cell count is down to normal. Denies chills or nausea or vomiting. He underwent bronchoscopy which revealed thick mucous plugging. Bronchoscopy sputum culture had danny albicans. This is a 78-year-old white male who presented to the emergency department on 06/19/2018 with chest pain. The patient was felt to have a COPD exacerbation. He was treated in the hospital and discharged on 06/22/2018 on inhalers and oral antibiotic. The patient states that after he went home, he was still having difficulty with breathing and was unable to sleep lying flat. He was given IV Levaquin in the hospital and discharged on p.o. Levaquin. Continued to have worsening shortness of breath. The patient notes that he did spent approximately 5 weeks in [place] before returning to [place] approximately 2 weeks ago and after he got to [place] he started feeling sick. Past Medical History: PAST MEDICAL HISTORY: Diabetes mellitus, hypertension, hyperlipidemia, monoclonal gammopathy, Parkinson's disease, chronic left shoulder pain, abscess of the gallbladder, anxiety disorder, CVA, history of bilateral knee replacement, cholecystectomy. Allergies/Adverse Reactions: Allergies sulfamethoxazole [From Bactrim] Allergy (Mild, Verified 06/19/18 12:12) Hives trimethoprim [From Bactrim] Allergy (Mild, Verified 06/19/18 12:12) Hives Objective Vital Signs 07/11/18 16:00 07/11/18 20:00 07/12/18 00:00 Temperature 97.4 F L 98.4 F 98.1 F Pulse Rate 67 66 65 Respiratory Rate 20 19 16 Blood Pressure 128/87 118/57 L 117/58 L Pulse Oximetry 95 92 L 94 L 07/12/18 04:00 07/12/18 07:00 07/12/18 08:00 Temperature 97.4 F L 97.3 F L Pulse Rate 108 H 61 Respiratory Rate 18 12 20 Blood Pressure 131/66 147/81 H Pulse Oximetry 93 L 95 07/12/18 09:00 Temperature Pulse Rate 55 L Respiratory Rate Blood Pressure Pulse Oximetry Intake & Output 07/11/18 07/12/18 07/12/18 18:59 06:59 18:59 Intake Total 1700 / 1700 Balance 1700 / 1700 Weight 115 kg Intake: IV 200 / 200 Primaxin Inj 500 MG In NS Inj 100 / 100 100 ML @ 200 mls/hr IV.SIG Q6H [facility] Rx#:[id number] Mycamine Inj 100 MG In NS Inj 100 / 100 100 ML @ 100 mls/hr IV.SIG Q24H [facility] Rx#:[id number] Oral 1300 / 1300 Other 200 / 200 Other: Other Intake Source Saline Solution # Voids 4 5 Date of Last Bowel Movement 07/10/18 07/12/18 07/11/18 # Bowel Movements 0 1 07/08/18 09:30 Sputum - Expectorated Sputum Gram Stain - Final 07/08/18 09:30 Sputum - Expectorated Sputum Sputum Culture - Final Heavy growth normal respiratory carson 06/30/18 15:10 Other - Final Lab - Hematology Results 07/11/18 07/12/18 08:47 08:24 WBC 21.1 H D 9.5 D RBC 4.57 4.63 Hgb 14.0 14.3 Hct 40.9 41.6 MCV 89.5 89.9 MCH 30.6 30.8 MCHC 34.2 34.3 RDW 18.0 H 18.4 H Plt Count 149 L 133 L MPV 8.9 8.7 Neut % (Auto) 91.2 H 78.9 H Lymph % (Auto) 2.5 L 13.1 [place] % (Auto) 6.2 7.8 Eos % (Auto) 0.0 0.0 Baso % (Auto) 0.1 0.2 Neut # (Auto) 19.3 H 7.5 Lymph # (Auto) 0.5 L 1.2 [place] # (Auto) 1.3 H 0.7 Eos # (Auto) 0.0 0.0 Baso # (Auto) 0.0 0.0 WBC Differential Manual diff final . Seg Neuts % (Manual) 84 H Band Neuts % (Manual) 2 Lymphocytes % (Manual) 9 Monocytes % (Manual) 4 Myelocytes % (Man) 1 H Abs Neuts (Manual) 18.4 H Differential Comment Auto diff final Auto diff final Platelet Estimate Low L Platelet Morphology Normal Ovalocytes 1+ H Cori Cells 1+ H Lab - Chemistry Results 07/10/18 07/10/18 07/11/18 17:30 21:05 03:57 Sodium Potassium Chloride Carbon Dioxide Anion Gap BUN Creatinine Estimated GFR POC Glucose 258 H 279 H 237 H Random Glucose Calcium Total Bilirubin AST ALT Alkaline Phosphatase Total Protein Albumin 07/11/18 07/11/18 07/11/18 08:47 08:53 13:27 Sodium 137 Potassium 4.3 Chloride 103 Carbon Dioxide 24.9 Anion Gap 9 BUN 25 H Creatinine 0.95 Estimated GFR 77 L POC Glucose 183 H 227 H Random Glucose 188 H Calcium 7.8 L Total Bilirubin 0.6 AST 12 L ALT 30 Alkaline Phosphatase 87 Total Protein 5.6 L Albumin 3.0 L 07/11/18 07/11/18 07/12/18 17:42 21:34 05:25 Sodium Potassium Chloride Carbon Dioxide Anion Gap BUN Creatinine Estimated GFR POC Glucose 181 H 248 H 286 H Random Glucose Calcium Total Bilirubin AST ALT Alkaline Phosphatase Total Protein Albumin 07/12/18 07/12/18 07/12/18 07:18 08:24 11:21 Sodium 138 Potassium 4.0 Chloride 102 Carbon Dioxide 28.7 Anion Gap 7 BUN 26 H Creatinine 1.06 Estimated GFR 68 L POC Glucose 192 H 125 H Random Glucose 143 H Calcium 7.9 L Total Bilirubin 0.7 AST 11 L ALT 28 Alkaline Phosphatase 90 Total Protein 6.0 L Albumin 3.0 L Imaging: ITS Impressions Chest X-Ray 07/11/18 00:00 CONCLUSION: 1. Improved aeration in the right lower lung zone compared to 07/03/2018. 2. Minimal interval progression of mild left lower lobe airspace consolidation concerning for developing pneumonia or aspiration in the appropriate clinical setting. Physical Exam: PHYSICAL EXAMINATION: GENERAL: Awake and alert. HEENT: Extraocular movements grossly intact. Pupils reactive to light. No icterus. Oropharynx: mucosa moist. NECK: Supple. No adenopathy. LUNGS: Decreased breath sounds at the bases. Good air movement at the upper lung [place]. HEART: Regular S1 and S2. Irregular rate. No audible murmur. ABDOMEN: Bowel sounds present, obese, soft. No tenderness. EXTREMITIES: 1+ pitting edema of the lower extremities. No clubbing or cyanosis. SKIN: No diffuse rash. NEUROLOGIC: No gross focal finding. PSYCHIATRIC: Calm and cooperative. Assessment and Plan - Plan IMPRESSION: 1. Probable hospital-acquired pneumonia. The patient with a known history of resistant bacterial pneumonia in the past. Bronchoscopy revealed mucous plugging and culture had Danny. 2. Orthopnea improved. 3. Leukocytosis. White blood cell count now down to normal. Stable. RECOMMENDATIONS: Okay to discharge patient today without antibiotics. Discussed with Dr. Omalley.
[2018-07-12 12:40] VITALS: BP 130/60; PULSE 60
--- NOTE | 2018-07-12 12:41 | P.DS ---
Date of admission: 06/28/18 15:07 Primary care physician: UNKNOWN Brief History from admission: This is a 78-year-old Male with PMHx of COPD who presented to the ER after being seen by his Consignee today for increasing shortness of breath. Patient was recently admitted to the hospital for pneumonia and COPD exacerbation. 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 Patient was admitted for further evaluation of shortness of breath with possible pneumonia. DS: Diagnosis - Discharge Diagnosis (1) Diabetes Status: Chronic (2) Pneumonia Status: Resolved DS: Medications - Discharge Medications Prescriptions: amlodipine [Norvasc] 5 mg PO DAILY 30 Days #30 tab lisinopril 40 mg PO DAILY 30 Days #60 tab DS: Summary Hospital Course: Patient was admitted for failed outpatient treatment of community-acquired pneumonia. Patient on admission a chest x-ray that showed mildly improved bilateral lower lobe, left greater than right, airspace consolidation. Patient was placed on Primaxin and micafungin per ID during hospitalization. Patient was placed on Solu-Medrol, duo nebs, Symbicort, and Mucinex. Patient had a bronchoscopy that was done on 06/29 which was positive for Elizabeth. Sputum Cx on 07/08 showed heavy growth normal carson, Bld Cx from 06/28, NG at 5 daysx4. Patient was managed by infectious disease and pulmonology. After the sputum culture results reviewed by ID today and were WNL, it was recommended that the patient could be discharged without antibiotics. Patient's blood pressure was poorly controlled and he was started on metoprolol and Norvasc. Metoprolol was then discontinued due to the patient being symptomatic with heart rate in the 40s which resolved once the beta-tori was stopped. Patient was continued on home lisinopril. Patient during his hospitalization did have some PVCs which per cardiology were more consistent with artifact. Patient was discharged in stable condition and was saturating satting well on room air on the day of discharge. - Time Spent with Patient Total time spent providing and/or coordinating discharge services: Greater than 30 minutes - Quality: VTE Deep Vein Thrombosis/Pulmonary Embolism Present on Admission: No Exam Vital signs: Vital Signs 07/11/18 16:00 07/11/18 20:00 07/12/18 00:00 Temperature 97.4 F L 98.4 F 98.1 F Pulse Rate 67 66 65 Respiratory Rate 20 19 16 Blood Pressure 128/87 118/57 L 117/58 L Pulse Oximetry 95 92 L 94 L 07/12/18 04:00 07/12/18 07:00 07/12/18 08:00 Temperature 97.4 F L 97.3 F L Pulse Rate 108 H 61 Respiratory Rate 18 12 20 Blood Pressure 131/66 147/81 H Pulse Oximetry 93 L 95 07/12/18 09:00 07/12/18 12:00 Temperature 97.3 F L Pulse Rate 55 L 60 Respiratory Rate 20 Blood Pressure 130/60 Pulse Oximetry 95 Intake & Output 07/11/18 07/12/18 07/12/18 18:59 06:59 18:59 Intake Total 1700 / 1700 Balance 1700 / 1700 Weight 115 kg Intake: IV 200 / 200 Primaxin Inj 500 MG In NS Inj 100 / 100 100 ML @ 200 mls/hr IV.SIG Q6H [facility] Rx#:[id number] Mycamine Inj 100 MG In NS Inj 100 / 100 100 ML @ 100 mls/hr IV.SIG Q24H [facility] Rx#:[id number] Oral 1300 / 1300 Other 200 / 200 Other: Other Intake Source Saline Solution # Voids 4 5 Date of Last Bowel Movement 07/10/18 07/12/18 07/11/18 # Bowel Movements 0 1 Narrative: GENERAL: Well-nourished male, in no acute distress, sitting comfortably in bed SKIN: Warm and dry. HEAD: Normocephalic. EYES: No scleral icterus. No injection or drainage. NECK: Supple, trachea midline. No JVD or lymphadenopathy. CARDIOVASCULAR: Regular rate and rhythm without murmurs, gallops, or rubs. RESPIRATORY: Breath sounds equal bilaterally. No accessory muscle use. GASTROINTESTINAL: Abdomen soft, non-tender, nondistended. MUSCULOSKELETAL: No cyanosis, or edema. BACK: Nontender without obvious deformity. No CVA tenderness. NEURO: AAO x3, no focal deficits. Results Procedures completed during hospitalization: bronch 06/30 Labs on day of discharge: Labs from last 24 hours 07/12/18 07/12/18 07/12/18 11:21 08:24 08:24 WBC 9.5 D RBC 4.63 Hgb 14.3 Hct 41.6 MCV 89.9 MCH 30.8 MCHC 34.3 RDW 18.4 H Plt Count 133 L MPV 8.7 Neut % (Auto) 78.9 H Lymph % (Auto) 13.1 [place] % (Auto) 7.8 Eos % (Auto) 0.0 Baso % (Auto) 0.2 Neut # (Auto) 7.5 Lymph # (Auto) 1.2 [place] # (Auto) 0.7 Eos # (Auto) 0.0 Baso # (Auto) 0.0 WBC Differential . Differential Comment Auto diff final Sodium 138 Potassium 4.0 Chloride 102 Carbon Dioxide 28.7 Anion Gap 7 BUN 26 H Creatinine 1.06 Estimated GFR 68 L POC Glucose 125 H Random Glucose 143 H Calcium 7.9 L Total Bilirubin 0.7 AST 11 L ALT 28 Alkaline Phosphatase 90 Total Protein 6.0 L Albumin 3.0 L 07/12/18 07/12/18 07/11/18 07:18 05:25 21:34 WBC RBC Hgb Hct MCV MCH MCHC RDW Plt Count MPV Neut % (Auto) Lymph % (Auto) [place] % (Auto) Eos % (Auto) Baso % (Auto) Neut # (Auto) Lymph # (Auto) [place] # (Auto) Eos # (Auto) Baso # (Auto) WBC Differential Differential Comment Sodium Potassium Chloride Carbon Dioxide Anion Gap BUN Creatinine Estimated GFR POC Glucose 192 H 286 H 248 H Random Glucose Calcium Total Bilirubin AST ALT Alkaline Phosphatase Total Protein Albumin 07/11/18 07/11/18 17:42 13:27 WBC RBC Hgb Hct MCV MCH MCHC RDW Plt Count MPV Neut % (Auto) Lymph % (Auto) [place] % (Auto) Eos % (Auto) Baso % (Auto) Neut # (Auto) Lymph # (Auto) [place] # (Auto) Eos # (Auto) Baso # (Auto) WBC Differential Differential Comment Sodium Potassium Chloride Carbon Dioxide Anion Gap BUN Creatinine Estimated GFR POC Glucose 181 H 227 H Random Glucose Calcium Total Bilirubin AST ALT Alkaline Phosphatase Total Protein Albumin Preliminary micro results at discharge 06/30/18 15:10 Fungal Culture - Preliminary Bronchial Washings - Bronchial Elizabeth albicans 06/30/18 15:10 Mycobacterial Culture - Preliminary Bronchial Washings - Bronchial No growth in 1 week - Impressions ITS Impressions Chest X-Ray 07/11/18 00:00 CONCLUSION: 1. Improved aeration in the right lower lung zone compared to 07/03/2018. 2. Minimal interval progression of mild left lower lobe airspace consolidation concerning for developing pneumonia or aspiration in the appropriate clinical setting. Discharge Plan - Discharge Disposition Patient Disposition: 01 Discharge Home - Discharge Condition Condition: Fair - Discharge Order Discharge Orders: Discharge Order (Routine); Ordered 07/12/18 Ordered By: Josey Omalley - Physicians Team Primary Care Provider: UNKNOWN, Attending Provider: Josey Omalley Other Providers: Melvin Moon MD ; Reshma Larose MD ; [place], [facility] ; Johan Pierre MD ; Aysha Somers MD
== END 2018-07-12 14:17 | disposition home or self-care (01) ==
LOC: NEPE 12:43 → NEDA 15:07 → N05 16:04
PROVIDERS: ADMIT Family Medicine; ATTEND Family Medicine